=== PATIENT | female | born 1980 | race Caucasian/White ===

== ENCOUNTER 2020-03-15 20:42 | Emergency (ER) | payer MEDICARE, MEDICAID ==
[~2020-03-15] VITALS: Ht 180.3 cm; Wt 136.1 kg
--- OUTSIDE RECORDS SUMMARY | 2020-03-15 21:17 | XMS REPORT | Referral Summary ---
Author Author [facility] Organization [facility] Address Unknown Phone Unavailable Care Team Providers Care [employer] Developer Name Role Phone Felisha Sultana PCP Encounter [facility] Date(s): 10/08/17 - 10/11/17 [facility] [address] [place] [address] [phone] Final: Primary osteoarthritis, left ankle and foot Final: Body mass index (BMI) 40.0-44.9, adult Final: Obesity, unspecified Final: Impaired glucose tolerance (oral) Final: Hypokalemia Final: Hyperlipidemia, unspecified Final: Gastro-esophageal reflux disease without esophagitis Final: Nicotine dependence, cigarettes, uncomplicated Final: Major depressive disorder, single episode, unspecified Discharge Disposition: 01-Home or Self Care Attending Physician: Andrés Wren DO Admitting Physician: Andrés Wren DO Vital Signs Most recent to 1 oldest [Reference Range]: Temperature Oral 36.7 degC [35.8-37.3 degC] (10/11/17 4:00 AM) Temperature Tympanic 36 degC [36.6-38.1 degC] *LOW* (10/08/17 7:50 AM) Temperature Temporal 37.1 degC Artery [36.3-37.8 (10/08/17 11:21 AM) degC] Peripheral Pulse 74 bpm Rate [60-100 bpm] (10/11/17 4:00 AM) Heart Rate Monitored 79 bpm [60-100 bpm] (10/08/17 9:00 PM) Respiratory Rate 14 br/min [14-20 br/min] (10/11/17 4:00 AM) Blood Pressure 141/76 mmHg [90-140/60-90 mmHg] *HI* (10/11/17 4:00 AM) Mean Arterial 106 mmHg Pressure, Cuff (10/08/17 9:00 PM) SpO2 98 % (10/11/17 4:00 AM) Problem List Condition Effective Dates Status Health Status Informan t Acute Active pain(Confirmed) Impaired skin Active integrity(Confirmed) 1 Bilateral Active myopia(Confirmed) 1Problem added automatically by system based on initiation of Impaired Skin Integrity Plan of Care Allergies, Adverse Reactions, Alerts Substance Reaction Severity Status Latex Active Nuts Severe Active Tape Active oxyCODONE Active HYDROcodone Active Oranges Mild Active Medications atorvastatin 10 mg oral tablet 10 mg 1 tabs, Oral, Bedtime (once a day), 0 Refill(s) Start Date: 10/11/17 Status: Ordered cyclobenzaprine 10 mg oral tablet 10 mg 1 tabs, Oral, TID, as needed for spasm, # 30 tabs, 0 Refill(s) Start Date: 10/08/17 Status: Ordered Fish Oil 1,200 mg, Oral, Daily, 0 Refill(s) Start Date: 10/08/17 Status: Ordered gabapentin 1,800 mg, Oral, Bedtime (once a day), 0 Refill(s) Start Date: 10/08/17 Status: Ordered gabapentin 300 mg oral capsule 1,800 mg 6 caps, Oral, Bedtime (once a day), 0 Refill(s) Start Date: 10/11/17 Status: Ordered HYDROmorphone 4 mg oral tablet 4 mg 1 tabs, Oral, q4hr, Pain Severe (7-10), 0 Refill(s) Start Date: 10/11/17 Status: Ordered Melatonin 3 mg, Oral, Bedtime (once a day), 0 Refill(s) Start Date: 10/08/17 Status: Ordered multivitamin 1 tabs, Oral, Daily, 0 Refill(s) Start Date: 10/08/17 Status: Ordered nortriptyline 25 mg, Oral, Bedtime (once a day), 0 Refill(s) Start Date: 10/08/17 Status: Ordered nortriptyline 25 mg oral capsule 25 mg 1 caps, Oral, Bedtime (once a day), 0 Refill(s) Start Date: 10/11/17 Status: Ordered pantoprazole 40 mg, Oral, Daily, 0 Refill(s) Start Date: 10/08/17 Status: Ordered pantoprazole 40 mg oral delayed release tablet 40 mg 1 tabs, Oral, Daily, 0 Refill(s) Start Date: 10/11/17 Status: Ordered pravastatin 20 mg, Oral, Daily, 0 Refill(s) Start Date: 10/08/17 Status: Ordered ProAir HFA 90 mcg/inh inhalation aerosol 2 puffs, Inhalation, QID, soa, 0 Refill(s) Start Date: 10/08/17 Status: Ordered Saxenda SubCutaneous, Daily, 0 Refill(s) Start Date: 10/08/17 Status: Ordered sertraline 50 mg, Oral, Daily, 0 Refill(s) Start Date: 10/08/17 Status: Ordered sertraline 50 mg oral tablet 50 mg 1 tabs, Oral, Daily, 0 Refill(s) Start Date: 10/11/17 Status: Ordered traMADol 50 mg, Oral, q12hr, 0 Refill(s) Start Date: 10/08/17 Status: Ordered Results Hematology Most recent to 1 oldest [Reference Range]: WBC [4.8-10.8 13.0 10*3/uL 10*3/uL] *HI* (10/11/17 7:44 AM) RBC [4.00-5.20] 4.38 (10/11/17 7:44 AM) Hgb [12.0-16.0 12.3 gm/dL gm/dL] (10/11/17 7:44 AM) Hct [37.0-47.0 %] 39.0 % (10/11/17 7:44 AM) MCV [82.0-99.0 fL] 89.0 fL (10/11/17 7:44 AM) MCH [27.0-32.0 pg] 28.1 pg (10/11/17 7:44 AM) MCHC [32.0-36.0 31.5 gm/dL gm/dL] *LOW* (10/11/17 7:44 AM) RDW [11.5-14.5 %] 14.3 % (10/11/17 7:44 AM) Platelet [150-400 291 10*3/uL 10*3/uL] (10/11/17 7:44 AM) MPV [9.4-12.4 fL] 8.7 fL *LOW* (10/11/17 7:44 AM) Chemistry Most recent to 1 oldest [Reference Range]: Sodium Lvl [136-144 138 mEq/L mEq/L] (10/10/17 8:15 AM) Potassium Lvl 3.9 mEq/L [3.6-5.1 mEq/L] (10/10/17 8:15 AM) Chloride [99-109 102 mEq/L mEq/L] (10/10/17 8:15 AM) CO2 [22-32 mEq/L] 27 mEq/L (10/10/17 8:15 AM) AGAP [3-20 mEq/L] 9 mEq/L (10/10/17 8:15 AM) BUN [4-20 mg/dL] 6 mg/dL (10/10/17 8:15 AM) Glucose Lvl [70-100 136 mg/dL mg/dL] *HI* (10/10/17 8:15 AM) Creatinine Lvl 0.55 mg/dL [0.44-1.03 mg/dL] (10/10/17 8:15 AM) eGFR [>60 mL/min] >60 mL/min 1 (10/10/17 8:15 AM) Calcium Lvl 9.0 mg/dL [8.6-10.0 mg/dL] (10/10/17 8:15 AM) Albumin Lvl [3.5-4.8 3.1 gm/dL gm/dL] *LOW* (10/10/17 8:15 AM) Total Protein 6.4 gm/dL [6.1-7.9 gm/dL] (10/10/17 8:15 AM) ALT [14-54 U/L] 15 U/L (10/10/17 8:15 AM) AST [15-41 U/L] 17 U/L (10/10/17 8:15 AM) Alk Phos [26-104 71 U/L U/L] (10/10/17 8:15 AM) Bili Total [0.2-1.2 0.7 mg/dL 2 mg/dL] (10/10/17 8:15 AM) Bili Direct [0.0-0.2 0.2 mg/dL mg/dL] (10/10/17 8:15 AM) Bili Indirect 0.5 mg/dL [0.0-1.0 mg/dL] (10/10/17 8:15 AM) Screen, Negative Urine NPT (10/08/17 8:20 AM) Blood Glucose, 110 mg/dL Capillary [70-100 *HI* mg/dL] (10/11/17 5:58 AM) U Beta hCG Ql Negative (10/08/17 11:10 PM) 1Result Comment: Multiply eGFR results by 1.21 for race. 2Result Comment: Naproxen, specifically the metabolite O-desmethylnaproxen, may cause spurious elevation in Total Bilirubin levels. Immunizations No data available for this section Procedures Procedure Date Related Diagnosis Body Site Arthrodesis Ankle1 10/08/17 Ankle2 Hemorrhoidectomy Plantar fasciitis Tear duct Tonsillectomy 1auto-populated from documented surgical case 2bone spur arthroscopy Social History Social History Type Response Smoking Status 10 or more cigarettes (1/2 pack or more)/day in last 30 days entered on: 10/08/17 Assessment and Plan No data available for this section
--- OUTSIDE RECORDS SUMMARY | 2020-03-15 21:17 | XMS REPORT | Referral Summary ---
Author Author [facility] Organization [facility] Address Unknown Phone Unavailable Care Team Providers Care [employer] Name Role Phone Felisha Sultana PCP Ally Donohue PCP [facility] PCP Unavailable No PCP, Pt States PCP Encounter [facility] [id number] Date(s): 11/18/17 - 11/18/17 [facility] [address], [place] [address] Encounter Diagnosis Visit for cast removal (Discharge Diagnosis) - 11/18/17 Discharge Disposition: 01-Home or Self Care Attending Physician: Alexander Joyce DO Admitting Physician: Alexander Joyce DO Vital Signs Most recent to 1 oldest [Reference Range]: Temperature Oral 36.8 degC [35.8-37.3 degC] (11/18/17 2:44 PM) Peripheral Pulse 93 bpm Rate [60-100 bpm] (11/18/17 2:44 PM) Respiratory Rate 18 br/min [14-20 br/min] (11/18/17 2:44 PM) Blood Pressure 127/85 mmHg [90-140/60-90 mmHg] (11/18/17 2:44 PM) SpO2 96 % (11/18/17 2:44 PM) Problem List Condition Effective Dates Status Health [...] Refill(s) Start Date: 10/08/17 Status: Ordered Results No data available for this section Immunizations No data available for this section Procedures Procedure Date Related Diagnosis Body Site Status Arthrodesis Ankle1 10/08/17 Completed Ankle2 Completed Hemorrhoidectomy Completed Plantar fasciitis Completed Tear duct Completed Tonsillectomy Completed 1auto-populated from documented surgical case 2bone spur arthroscopy Social History Social History Type Response Smoking Status 10 or more cigarettes (1/2 pack or more)/day in last 30 days entered on: 10/08/17 Assessment and Plan No data available for this section
--- OUTSIDE RECORDS SUMMARY | 2020-03-15 21:17 | XMS REPORT | Referral Summary ---
Author Author [facility] Organization [facility] Address Unknown Phone Unavailable Care Team Providers Care [employer] Name Role Phone Ally Donohue PCP Encounter [facility] Date(s): 10/03/17 - 10/03/17 [facility] [address] [place] [address] Discharge Disposition: 01-Home or Self Care Attending Physician: Ally Donohue MD Admitting Physician: Ally Donohue MD Vital Signs No data available for this section Problem List Condition Effective Dates Status Health Status Informan t Bilateral Active myopia(Confirmed) Allergies, Adverse Reactions, Alerts No Known Medication Allergies Medications No data available for this section Results No data available for this section Immunizations No data available for this section Procedures No data available for this section Social History No data available for this section Assessment and Plan No data available for this section
--- OUTSIDE RECORDS SUMMARY | 2020-03-15 21:17 | XMS REPORT ---
Author Author Solange Sultana [facility] Address [address], [place] [id number] Care Team Providers Care Human Performance Technologist Name Role Phone Kodi Lowery Felisha Unavailable PROBLEMS Type Condition ICD9-CM Code TKF36-NO Code Onset Dates Condition S tatus SNOMED Code Problem Prediabetes R73.09 Active 51282586 2 Problem Depression with anxiety F41.8 Active 527959755 Problem Fibromyalgia M79.7 Active 0048801 05 Problem Chronic GERD K21.9 Active 3772123 09 Problem Mixed hyperlipidemia E78.2 Active 601576127 Problem Right hip pain M25.551 Active 34013 3505442962 Problem Pain in pelvis R10.2 Active 47904 006 Problem History of gestational diabetes Z86.32 Active 686147021 Problem Gestational diabetes O24.419 Active 79670606 Problem Other chronic pain G89.29 Active 8 3943714 Problem Pain in right wrist M25.531 Active 24263898 Problem Plantar fasciitis M72.2 Active 20 0560422 Problem Left wrist pain M25.532 Active 5660 8008 Problem Post herpetic neuralgia B02.29 Active 5957975 Problem Reactive airway disease, mild persistent, uncomplicated J45.30 Active 743005015598 Problem Lumbago of lumbar region with sciatica M54.40 Active 37622827 Problem Chronic idiopathic constipation K59.09 Active 61332108 Problem Thoracic spine pain M54.6 Active 802298306 Problem Acute left ankle pain M25.572 Active 25269692162315 Problem Lumbago with sciatica, left side M54.42 Active 487888824 Problem Other elevated white blood cell (WBC) count D72.82 8 Active 549204525 Problem Absent periods N91.2 Active 38068 001 Problem Generalized anxiety disorder F41.1 A ctive 78444839 Problem Cervical pain M54.2 Active 629011 05 Problem Decreased hearing of left ear H91.92 Active 14415096 Problem Elevated blood pressure reading R03.0 Active 31872394 Problem Left hand pain M79.642 Active 36198 1654302382 Problem Prediabetes R73.03 Active 51198351 2 Problem Irregular periods N92.6 Active 80 891144 Problem Other fatigue R53.83 Active 571503 01 Problem Vitamin D deficiency E55.9 Active 14154120 Problem Menstrual cramps N94.6 Active 431 338525 Problem Excessive daytime sleepiness G47.19 A ctive 754356728743 Problem Constipation by delayed colonic transit K59.01 Active 48403211 Problem Primary insomnia F51.01 Active 397 2004 Problem Vitamin B 12 deficiency E53.8 Active 280071724 Problem GERD with esophagitis K21.0 Active 978664799 Problem Abscess, axilla L02.419 Active 1380 2001 Problem Mild persistent asthma without complication J45.30 Active 374792750 Problem Neck pain M54.2 Active 16993009 Problem Left hip pain M25.552 Active 258965 02 Problem Right anterior shoulder pain M25.511 A ctive 12977896 Problem Dislocation of temporomandibular joint, initial encounter S03.00XA Active 892055295 Problem Irritable bowel syndrome with diarrhea K58.0 Active 703342389 Problem Essential hypertension I10 Active 10822055 Problem Cigarette nicotine dependence, uncomplicated F17.2 10 Active 40309277 Problem Rosacea L71.9 Active 947759135 Problem Radiculopathy of lumbar region M54.16 Active 423214924 Problem Spinal stenosis, lumbar region without neurogeni c claudication M48.061 Active 32491967 Problem Sleep apnea in adult G47.30 Active 45364532 Problem Bipolar disorder F31.9 Active 137 81443 ALLERGIES No Information ENCOUNTERS Encounter Location Date Diagnosis [address] [address] Oct, Lumbago of lumbar region with sciatica M 54.[address] [address] Sep, Left hip pain M25.552 and Primary insomn ia F51.[address] [address] Aug, [facility] [address] Aug, Primary insomnia F51.01 and Lumbago of l umbar region with sciatica M54.[address] [address] Jul, Lumbago of lumbar region with sciatica M 54.[address] [address] Jun, Folliculitis L73.[address] [address] Jun, Pre-op evaluation Z01.[address] [address] Jun, Folliculitis L73.[address] [address] Jun, Pre-op evaluation Z01.[address] [address] Jun, Lumbago of lumbar region with sciatica M 54.40 and Chronic GERD K21.[address] [address] Jun, [address] [address] Jun, Dislocation of temporomandibular joint, initial encounter S03.00XA [address] [address] May, Dislocation of temporomandibular joint, initial encounter S03.00XA ; Essential hypertension I10 and Intertrigo L30.[address] [address] Apr, Depression with anxiety F41.[address] [address] Apr, Primary insomnia F51.[address] [address] Apr, Lumbago of lumbar region with sciatica M 54.40 and Vitamin D deficiency E55.[address] [address] Apr, Vitamin D deficiency E55.[address] [address] Apr, Allergic contact dermatitis due to other agents L23.89 ; Bipolar disorder F31.9 ; Mixed hyperlipidemia E78.2 ; Prediabetes R73.09 ; Vitamin D deficiency E55.9 ; Depression with anxiety F41.8 ; Dizziness R42 ; Other fatigue R53.83 ; Left anterior shoulder pain M25.512 and Left lateral ankle pain M25.[address] [address] Apr, Mixed hyperlipidemia E78.[address] [address] Apr, [address] [address] Apr, Bipolar disorder F31.9 ; Fibromyalgia M7 9.7 ; Depression with anxiety F41.8 ; Lumbago of lumbar region with sciatica M54.40 and Acute left ankle pain M25.[address] [address] Mar, Constipation by delayed colonic transit K59.01 ; Mixed hyperlipidemia E78.2 ; Depression with anxiety F41.8 ; Chronic GERD K21.9 and Bipolar disorder F31.[address] [address] Feb, Abscess L02.[address] [address] Dec, Chronic GERD K21.9 and Mixed hyperlipide sourav E78.[address] [address] Nov, [address] [address] Nov, [address] [address] Oct, Abscess, axilla L02.419 and Lumbago of l umbar region with sciatica M54.[address] [address] Oct, Fall, initial encounter W19.XXXA ; Right hip pain M25.551 ; Pain in pelvis R10.2 ; Right anterior shoulder pain M25.511 ; Left hip pain M25.552 ; Neck pain M54.2 ; Depression with anxiety F41.8 and Shingles B02.[address] [address] Oct, [address] [address] Oct, Sleep apnea in adult G47.[address] [address] Sep, Mixed hyperlipidemia E78.2 ; Prediabetes R73.09 ; Vitamin D deficiency E55.9 ; Fibromyalgia M79.7 ; Chronic GERD K21.9 ; Radiculopathy of lumbar region M54.16 ; Spinal stenosis, lumbar region without neurogenic claudication M48.061 ; Vitamin B 12 deficiency E53.8 ; Depression with anxiety F41.8 ; Cervical pain M54.2 and Hospital discharge follow-up Z09 [address] [address] Sep, [address] [address] Sep, [address] [address] Sep, Post herpetic neuralgia B02.[address] [address] Sep, Mixed hyperlipidemia E78.2 ; Vitamin D d eficiency E55.9 ; Prediabetes R73.09 ; Post herpetic neuralgia B02.29 ; Lumbago of lumbar region with sciatica M54.40 ; Primary insomnia F51.01 ; Fibromyalgia M79.7 ; Depression with anxiety F41.8 ; Constipation by delayed colonic transit K59.01 ; Medication refill Z76.0 ; Vitamin B 12 deficiency E53.8 ; Abscess, axilla L02.419 ; Mild persistent asthma without complication J45.30 ; Sinus congestion R09.81 and GERD with esophagitis K21.[address] [address] Aug, [address] [address] Aug, Depression with anxiety F41.8 and Primar y insomnia F51.[address] [address] 13 Aug, 2018 Chronic GERD K21.[address] [address] Aug, [address] [address] 15 Jul, 2018 Irregular periods N92.6 and Menstrual cr amps N94.[address] [address] 14 Jul, [address] [address] Jul, [address] [address] 12 Jul, 2018 Abscess L02.[address] [address] 06 Jul, 2018 Mixed hyperlipidemia E78.2 ; Chronic ABDOUL D K21.9 and Generalized anxiety disorder F41.[address] [address] 06 Jul, 2018 Well woman exam with routine gynecologic al exam Z01.419 ; Menstrual cramps N94.6 ; Acute left ankle pain M25.572 ; Snoring R06.83 and Excessive daytime sleepiness G47.[address] [address] Jun, Shingles B02.[address] [address] Jun, Pruritic dermatitis L29.9 and Rosacea L7 1.9 [facility] [address] [place] [address] Jun, [facility] [address] [place] [address] Jun, [facility] [address] [place] [address] Jun, [facility] [address] [place] [address] Jun, Butterfly rash R21 ; Influenza vaccine n eeded Z23 ; Prediabetes R73.09 ; Mixed hyperlipidemia E78.2 and Vitamin D deficiency E55.9 [facility] [address] [place] [address], [place] [address] Apr, Left ankle swelling M25.472 [facility] [address] [place] [address] Apr, [facility] [address] [place] [address] Apr, [facility] [address] [place] [address] Mar, Edema of left foot R60.0 [facility] [address] [place] [address] Mar, Irritable bowel syndrome with diarrhea K 58.0 [facility] [address] [place] [address] Mar, [facility] [address] [place] [address] Mar, [facility] [address] [place] [address] Mar, [facility] [address] [address] Feb, Irritable bowel syndrome with diarrhea K 58.0 [facility] [address] [place] [address] Feb, [facility] [address] [place] [address] Feb, Irritable bowel syndrome with diarrhea K 58.0 [facility] [address] [place] [address] 19 Feb, 2018 control counseling Z30.09 ; Lumbag o with sciatica, left side M54.42 and Chronic GERD K21.9 [facility] [address] [place] [address] Feb, [facility] [address] [address] Feb, [facility] [address] [place] [address] Feb, [facility] [address] [place] [address] Feb, Diarrhea, unspecified type R19.7 [facility] [address] [place] [address] Feb, Abnormal glucose R73.[address] [address] Feb, Abnormal glucose R73.09 [facility] [address] [place] [address] Feb, Reactive airway disease, mild persistent , uncomplicated J45.[address] [address] Feb, Lumbago with sciatica, left side M54.42 ; Cigarette nicotine dependence, uncomplicated F17.210 ; Diarrhea, unspecified type R19.7 and Abnormal glucose R73.09 [facility] [address] [place] [address] January, [facility] [address] [place] [address] January, [facility] [address] [address] January, [facility] [address] [place] [address] January, [facility] [address] [place] [address] January, Muscle strain of chest wall, initial enc ounter S29.011A ; Physical exam Z00.00 ; Need for hepatitis vaccination Z23 and Abscess L02.[address] [address] Dec, Left hand pain M79.642 ; Thoracic spine pain M54.6 ; Cervical pain M54.2 and Elevated blood pressure reading R03.[address] [address] Dec, Lumbago with sciatica, left side M54.42 and Decreased hearing of left ear H91.[address] [address] Dec, Other chest pain R07.89 ; Finger pain, l eft M79.645 ; Chronic GERD K21.9 and Muscle strain of chest wall, initial encounter S29.011A [address] [address] Dec, [address] [address] Dec, Other constipation K59.09 ; Irregular pe riods N92.6 and Absent periods N91.[address] [address] Oct, [address] [address] Oct, Weight gain R63.[address] [address] Oct, Generalized anxiety disorder F41.[address] [address] Sep, [address] [address] Sep, Absent periods N91.2 and Decreased heari ng of left ear H91.[address] [address] Sep, [address] [address] 12 Sul[place]an, 2018 Pre-op exam Z01.818 and Abscess of chest wall L02.[address] [address] Sep, [address] [address] Sep, Prediabetes R73.09 ; Vitamin D deficienc y E55.9 ; Mixed hyperlipidemia E78.2 and Arthritis of ankle, left M19.[address] [address] Sep, Smoking trying to quit Z72.0 ; Chronic G ERD K21.9 ; Generalized anxiety disorder F41.1 ; Other chest pain R07.89 ; Other constipation K59.09 and Right upper quadrant pain R10.[address] [address] Aug, [address] [address] Aug, Other chronic pain G89.[address] [address] Aug, Mixed hyperlipidemia E78.2 ; Fibromyalgi a M79.7 ; Lumbago of lumbar region with sciatica M54.40 ; History of gestational diabetes Z86.32 ; Prediabetes R73.09 ; Vitamin D deficiency E55.9 ; Weight gain R63.5 ; control counseling Z30.09 ; Pain, dental K08.89 and Flank pain R10.[address] [address] Aug, [address] [address] Jun, Acute left ankle pain M25.[address] [address] Jun, [address] [address] Jun, [address] [address] Jun, Acute left ankle pain M25.572 [facility] [address] [place] [address] Jun, [facility] [address] [place] [address] Jun, Acute left ankle pain M25.572 [facility] [address] [place] [address] Jun, Influenza vaccine needed Z23 and Irregul ar periods N92.6 [facility] [address] [place] [address] May, Mixed hyperlipidemia E78.2 [facility] [address] [place] [address] May, [facility] [address] [place] [address] May, Chronic GERD K21.9 [facility] [address] [place] [address] Apr, Weight gain R63.5 [facility] [address] [place] [address] Apr, Chronic GERD K21.9 and Weight gain R63.5 [facility] [address] [place] [address] Mar, Depression with anxiety F41.8 and Chroni c idiopathic constipation K59.09 [facility] [address] [place] [address] Mar, Other chronic pain G89.29 [facility] [address] [place] [address] Mar, Post herpetic neuralgia B02.29 [facility] [address] [place] [address] Mar, Post herpetic neuralgia B02.29 [facility] [address] [place] [address] Mar, [facility] [address] [place] [address] Mar, Other elevated white blood cell (WBC) co unt D72.[address] [address] Mar, Other elevated white blood cell (WBC) co unt D72.828 and Dyslipidemia E78.[address] [address] Feb, [address] [address] Feb, Vitamin D deficiency E55.9 ; Dyslipidemi a E78.5 ; Other elevated white blood cell (WBC) count D72.828 and Skin tag L91.[address] [address] Feb, [address] [address] Feb, Vitamin D deficiency E55.9 and Dyslipide sourav E78.[address] [address] Feb, [address] [address] Feb, Post herpetic neuralgia B02.29 ; Thyroid disorder screen Z13.29 ; Mixed hyperlipidemia E78.2 ; Chronic GERD K21.9 ; Lumbago of lumbar region with sciatica M54.40 ; Prediabetes R73.03 ; Other fatigue R53.83 ; Vitamin D deficiency E55.9 and Vitamin B 12 deficiency E53.[address] [address] Feb, Reactive airway disease, mild persistent , uncomplicated J45.[address] [address] Feb, Chronic GERD K21.[address] [address] Feb, Mixed hyperlipidemia E78.2 and Other chr onic pain G89.[address] [address] Feb, Lumbago with sciatica, left side M54.42 ; Mixed hyperlipidemia E78.2 and Reactive airway disease, mild persistent, uncomplicated J45.30 [facility] [address] [place] [address] 20 Feb, 2017 Chronic GERD K21.9 [facility] [address] [place] [address] Feb, [facility] [address] [place] [address] Feb, [facility] [address] [place] [address] Feb, Post herpetic neuralgia B02.29 [facility] [address] [place] [address] Feb, Allergic contact dermatitis due to other agents L23.89 and Post herpetic neuralgia B02.29 [facility] [address] [place] [address] Feb, Chronic GERD K21.9 [facility] [address] [place] [address] Feb, Chronic GERD K21.9 [facility] [address] [place] [address] January, Post herpetic neuralgia B02.29 [facility] [address] [place] [address] January, Lumbago with sciatica, left side M54.42 [facility] [address] [place] [address] January, [facility] [address] [place] [address] January, Lumbago of lumbar region with sciatica M 54.40 [facility] [address] [place] [address] January, Other chronic pain G89.29 and Lumbago wi th sciatica, left side M54.42 [facility] [address] [place] [address] January, Depression with anxiety F41.8 [facility] [address] [place] [address] January, Mixed hyperlipidemia E78.[address] [address] January, Abscess of left groin L02.[address] [address] Dec, Depression with anxiety F41.[address] [address] Dec, Irregular periods N92.[address] [address] Nov, Left wrist pain M25.532 and Acute left a nkle pain M25.[address] [address] Nov, Post herpetic neuralgia B02.29 and Absce ss of left groin L02.[address] [address] Sep, Irregular periods N92.[address] [address] Sep, Mixed hyperlipidemia E78.2 ; Flank pain R10.9 and Post herpetic neuralgia B02.[address] [address] Aug, Lumbago of lumbar region with sciatica M 54.40 ; Chronic idiopathic constipation K59.09 ; Depression with anxiety F41.8 and Mixed hyperlipidemia E78.[address] [address] Aug, Other chronic pain G89.[address] [address] Aug, Reactive airway disease, mild persistent , uncomplicated J45.[address] [address] Aug, [address] [address] Aug, Cough R05 and Allergic contact dermatiti s due to other agents L23.89 [facility] [address] [place] [address] Aug, [address] [address] Jul, Other chronic pain G89.[address] [address] Jul, Upper respiratory tract infection, unspe cified type J06.9 ; Chronic GERD K21.9 ; Acute left ankle pain M25.572 and Lumbago of lumbar region with sciatica M54.[address] [address] Jun, Other chronic pain G89.[address] [address] Jun, [address] [address] Jun, [address] [address] Jun, Chronic GERD K21.[address] [address] Jun, [address] [address] May, Pain in right wrist M25.531 ; Left wrist pain M25.532 ; Acute left ankle pain M25.572 ; Thoracic spine pain M54.6 ; Lumbago with sciatica, left side M54.42 ; Other chronic pain G89.29 and Dysuria R30.0 [facility] [address] [place] [address] May, Chronic GERD K21.[address] [address] May, Chronic GERD K21.[address] [address] May, [address] [address] May, [facility] [address] [place] [address] 16 May, 2016 [facility] [address] [place] [address] 16 May, 2016 [facility] [address] [place] [address] 16 May, 2016 Mixed hyperlipidemia E78.2 ; Fibromyalgi a M79.7 ; Depression with anxiety F41.8 ; Lumbago of lumbar region with sciatica M54.40 ; Encounter to establish care Z76.89 ; Chronic GERD K21.9 ; History of gestational diabetes Z86.32 ; Chronic idiopathic constipation K59.09 ; Thyroid disorder screen Z13.29 and Need for influenza vaccination Z23 [facility] [address] [place] [phone] Apr, Gestational diabetes O24.419 [facility] [address] [place] [address] Feb, Gestational diabetes O24.419 IMMUNIZATIONS No Known Immunizations SOCIAL HISTORY Never Assessed REASON FOR VISIT PLAN OF CARE VITAL SIGNS MEDICATIONS Medication Instructions Dosage Frequency Start Date End Date Duration S tatus Tramadol HCl 50 MG Orally Three times daily take 1-2 tablet by mouth three times daily 30 Active RESULTS No Results PROCEDURES No Known procedures INSTRUCTIONS MEDICATIONS ADMINISTERED No Known Medications MEDICAL (GENERAL) HISTORY Type Description Date Medical History Morbid Obesity Medical History Fibromyalgia Medical History Hyperlipidemia Medical History Gestational DM Medical History Depression and Anxiety Medical History L5-S1 disc degeneration disease Medical History Sinus Bradycardia Surgical History Rt foot-plantar facitis 2011 Surgical History Lt foot bone spur 07/2015 Surgical History (girl) 03/17/16 Surgical History (girl) 06/26/2014 Surgical History (boy) 10/17/2001 Surgical History L ankle arthroscopy/synovect sherri/exostectomy of L distal tibia- Dr. Tyree Hernandez 07/2015 Surgical History Fused L ankle 09/2017 Hospitalization History [facility]- Hyperglycemia and February 2016 Hospitalization History Ankle surgery 09/2017
--- OUTSIDE RECORDS SUMMARY | 2020-03-15 21:17 | XMS REPORT | Referral Summary ---
Author Author [facility], [facility], Otolaryngology Organization [facility] [address] Address Unknown Phone Unavailable Care Team Providers Care Palliative Medicine Physician Name Role Phone Ally Donohue PCP Encounter VC Date(s): 02/13/18 - 02/13/18 [facility] [address] [place], [place] [address] Discharge Disposition: 01-Home or Self Care Attending Physician: Jonny Boyd MD Admitting Physician: Jonny Boyd MD Referring Physician: Ally Donohue MD Vital Signs Most recent to 1 oldest [Reference Range]: Temperature Tympanic 36.3 degC [36.6-38.1 degC] *LOW* (02/13/18 3:52 PM) Problem List Condition Effective Dates Status [...] 0 Refill(s) Start Date: 10/08/17 Status: Ordered cyclobenzaprine 10 mg oral tablet 10 mg 1 tabs, Oral, TID, as needed for spasm, # 15 tabs, 0 Refill(s) Start Date: 01/11/18 Status: Ordered Fish Oil 1,200 mg, Oral, [...] History Social History Type Response Smoking Status Former smoker, quit more th an 30 days ago; Type: Cigarettes entered on: 01/10/18 Assessment and Plan No data available for this section
--- OUTSIDE RECORDS SUMMARY | 2020-03-15 21:17 | XMS REPORT | Referral Summary ---
Author Author [facility] Organization [facility] Address Unknown Phone Unavailable Care Team Providers Care Reference Archivist Name Role Phone Felisha Sultana PCP Ally Donohue PCP [facility] PCP Unavailable No PCP, Pt States PCP Encounter [facility] [id number] Date(s): 01/10/18 - 01/11/18 [facility] [address], [place] [address] Encounter Diagnosis Nonspecific chest pain (Discharge Diagnosis) - 01/11/18 Muscle spasms of neck (Discharge Diagnosis) - 01/11/18 Discharge Disposition: 01-Home or Self Care Attending Physician: Alexander Joyce DO Admitting Physician: Alexander Joyce DO Vital Signs Most recent to 1 oldest [Reference Range]: Temperature Oral 36.0 degC [35.8-37.3 degC] (01/11/18 1:43 AM) Peripheral Pulse 72 bpm Rate [60-100 bpm] (01/11/18 1:43 AM) Heart Rate Monitored 69 bpm [60-100 bpm] (01/11/18 12:40 AM) Respiratory Rate 16 br/min [14-20 br/min] (01/11/18 1:43 AM) Blood Pressure 141/71 mmHg [90-140/60-90 mmHg] *HI* (01/11/18 1:43 AM) Mean Arterial 106 mmHg Pressure, Cuff (01/11/18 12:40 AM) SpO2 100 % (01/11/18 1:43 AM) Problem List Condition Effective Dates Status [...] 0 Refill(s) Start Date: 10/08/17 Status: Ordered predniSONE 50 mg oral tablet 50 mg 1 tabs, Oral, Daily, X 5 days, # 5 tabs, 0 Refill(s) Start Date: 01/11/18 Stop Date: 01/16/18 Status: Ordered ProAir HFA 90 mcg/inh inhalation [...] to 1 oldest [Reference Range]: WBC [4.8-10.8 16.5 10*3/uL 10*3/uL] *HI* (01/10/18 10:38 PM) RBC [4.00-5.20] 4.79 (01/10/18 10:38 PM) Hgb [12.0-16.0 13.1 gm/dL gm/dL] (01/10/18 10:38 PM) Hct [37.0-47.0 %] 41.5 % (01/10/18 10:38 PM) MCV [82.0-99.0 fL] 86.6 fL (01/10/18 10:38 PM) MCH [27.0-32.0 pg] 27.3 pg (01/10/18 10:38 PM) MCHC [32.0-36.0 31.6 gm/dL gm/dL] *LOW* (01/10/18 10:38 PM) RDW [11.5-14.5 %] 14.1 % (01/10/18 10:38 PM) Platelet [150-400 333 10*3/uL 10*3/uL] (01/10/18 10:38 PM) MPV [9.4-12.4 fL] 8.6 fL *LOW* (01/10/18 10:38 PM) Immature 0.1 % Granulocytes (01/10/18 10:38 PM) [0.0-1.0 %] Neutrophils [51-75 62 % %] (01/10/18 10:38 PM) Lymphocytes [20-46 30 % %] (01/10/18 10:38 PM) Monocytes [4-11 %] 6 % (01/10/18 10:38 PM) Eosinophils [0-4 %] 2 % (01/10/18 10:38 PM) Basophils [0-2 %] 1 % (01/10/18 10:38 PM) Neutro Absolute 10.23 [1.90-7.00] *HI* (01/10/18 10:38 PM) Lymph Absolute 4.87 [0.80-3.30] *HI* (01/10/18 10:38 PM) Hutchinson Absolute 0.91 [0.30-1.00] (01/10/18 10:38 PM) Eos Absolute 0.35 [0.00-0.50] (01/10/18 10:38 PM) Baso Absolute 0.10 [0.00-0.20] (01/10/18 10:38 PM) Chemistry Most recent to 1 oldest [Reference Range]: Sodium Lvl [136-144 137 mEq/L mEq/L] (01/10/18 10:38 PM) Potassium Lvl 3.6 mEq/L [3.6-5.1 mEq/L] (01/10/18 10:38 PM) Chloride [99-109 101 mEq/L mEq/L] (01/10/18 10:38 PM) CO2 [22-32 mEq/L] 27 mEq/L (01/10/18 10:38 PM) AGAP [3-20 mEq/L] 9 mEq/L (01/10/18 10:38 PM) BUN [4-20 mg/dL] 10 mg/dL (01/10/18 10:38 PM) Glucose Lvl [70-100 126 mg/dL mg/dL] *HI* (01/10/18 10:38 PM) Creatinine Lvl 0.76 mg/dL [0.44-1.03 mg/dL] (01/10/18 10:38 PM) eGFR [>60 mL/min] >60 mL/min 1 (01/10/18 10:38 PM) Calcium Lvl 9.0 mg/dL [8.6-10.0 mg/dL] (01/10/18 10:38 PM) Troponin [<0.06 <0.05 ng/mL ng/mL] (01/10/18 10:38 PM) 1Result Comment: Multiply eGFR results by 1.21 for race. Immunizations No data available for this section [...]
--- OUTSIDE RECORDS SUMMARY | 2020-03-15 21:17 | XMS REPORT | Referral Summary ---
Author Author [facility] Organization [facility] Address Unknown Phone Unavailable Care Team Providers Care River Guide Name Role Phone Felisha Sultana PCP Ally Donohue PCP [facility] PCP Unavailable No PCP, Pt States PCP Encounter [facility] [id number] Date(s): 11/13/17 - 11/13/17 [facility] [address] [place], [place] [address] [phone] Encounter Diagnosis Cast removal (Discharge Diagnosis) - 11/13/17 Discharge Disposition: 01-Home or Self Care Attending Physician: Alexander Joyce DO Admitting Physician: Alexander Joyce DO Referring Physician: Self Referred, X Vital Signs Most recent to 1 oldest [Reference Range]: Temperature Oral 36.9 degC [35.8-37.3 degC] (11/13/17 3:44 PM) Peripheral Pulse 70 bpm Rate [60-100 bpm] (11/13/17 3:44 PM) Respiratory Rate 18 br/min [14-20 br/min] (11/13/17 3:44 PM) Blood Pressure 209/104 mmHg [90-140/60-90 mmHg] *HI* (11/13/17 3:44 PM) SpO2 97 % (11/13/17 3:44 PM) Problem List Condition Effective Dates Status [...]
--- OUTSIDE RECORDS SUMMARY | 2020-03-15 21:17 | XMS REPORT | Referral Summary ---
Author Author [facility] Organization [facility] Address Unknown Phone Unavailable Care Team Providers Care Operator Electronic Warfare Name Role Phone [id number] PCP Unavailable Encounter Date(s): 08/31/16 - 08/31/16 [facility] [address] [place] [id number] Discharge Disposition: 01-Home or Self Care Attending Physician: Ally Donohue MD Vital Signs No [...]
--- OUTSIDE RECORDS SUMMARY | 2020-03-15 21:17 | XMS REPORT | Referral Summary ---
Author Author [facility] Organization [facility] Address Unknown Phone Unavailable Care Team Providers Care Director Of Distance Learning Name Role Phone Charanjit Ally E PCP Encounter Date(s): 02/13/18 - 02/13/18 [facility] [address] [place] [address]- Encounter Diagnosis Left-sided sensorineural hearing loss (Discharge Diagnosis) - 02/13/18 Discharge Disposition: 01-Home or Self Care Attending Physician: Margie Cook Referring Physician: Jonny Boyd MD Vital Signs No data available for [...]
--- OUTSIDE RECORDS SUMMARY | 2020-03-15 21:17 | XMS REPORT | Referral Summary ---
Author Author [facility] Organization [facility] Address Unknown Phone Unavailable Care Team Providers Care Band Saw Marker Name Role Phone No PCP, Pt States PCP Encounter [facility] Date(s): 05/17/16 - 05/17/16 [facility] [address], [place] [address] Discharge Diagnosis: Bilateral myopia Discharge Disposition: 01-Home or Self Care Attending Physician: Warren Miranda OD Admitting Physician: Warren Miranda OD Vital Signs No data available for this section Problem List Condition Effective Dates Status Health Status Informan t Bilateral Active myopia(Confirmed) Allergies, Adverse Reactions, Alerts No Known Medication Allergies Medications No Known Medications Results No data available for this section Immunizations No data available for this section Procedures No data available for this section Social History No data available for this section Assessment and Plan Extracted from: Title: Ambulatory Patient Education Author: Seth Miranda OD Date: 05/17/16 Ophthalmology Myopia Nearsightedness (myopia) is when objects that are far away cannot be seen clearly. This usually happens because the eye is either longer than normal or bends (refracts) the light too much. As a result, the image is blurred. Myopia also often develops in the pre-teen years and progresses through the teens. You may see them holding things close to their eyes to see. You may also notice children sitting close to the television or white board in school. It generally stabilizes by the end of the teenage years. Myopia that continues to develop is called progressive myopia. CAUSES Growth spurts in children. Certain drugs and medicines. Some other causes of myopia (secondary myopia) can happen from other medical conditions such as: Developing cataracts. High blood sugar (e.g. uncontrolled diabetes). . Premature . Other diseases of the eye. SYMPTOMS People with myopia have blurred vision in the affected eye(s) for anything far away, but can usually find a point up close at which they can see clearly. DIAGNOSIS An avaya engineer or education manager can diagnose myopia with tests using a series of lenses in front of the eye and the eye reading chart. TREATMENT Glasses or contact lenses. Ophthalmologists can use painless laser treatments to change the shape of the clear covering at the front of the eye (cornea). SEEK IMMEDIATE MEDICAL CARE IF: You get a rapid blurring of vision in one or both eyes. This information is not intended to replace advice given to you by your health care provider. Make sure you discuss any questions you have with your health care provider. Document Released: 09/10/2006 Document Revised: 12/02/2012 Document Reviewed: 08/04/2015 [facility] Patient Information 2016 [employer]. No follow up information was provided. Extracted from: Title: Eye Exam am Author: Warren Miranda OD Date: 04/25 01/07 Impression and Plan Diagnosis Bilateral myopia ([id number] H52.13, Discharge, Medical). Plan: Spectacle prescription . Patient Instructions: Myopia, 1 year. Prescription: Ophthalmology Rx (ST) No qualifying data available.
--- OUTSIDE RECORDS SUMMARY | 2020-03-15 21:18 | XMS REPORT ---
Author Author Solange Sultana [facility] Address [address], [place] [id number] Care Team Providers Care As400 Developer Name Role Phone Kodi Lowery Felisha Unavailable PROBLEMS Type Condition ICD9-CM Code VWR60-AP Code Onset Dates Condition S tatus SNOMED Code Problem Prediabetes R73.09 Active 89623060 2 Problem Depression with anxiety F41.8 Active 927787051 Problem Fibromyalgia M79.7 Active 5900118 05 Problem Chronic GERD K21.9 Active 1325305 09 Problem Mixed hyperlipidemia E78.2 Active 004887935 Problem Right hip pain M25.551 Active 88433 7974367850 Problem Pain in pelvis R10.2 Active 82048 006 Problem History of gestational diabetes Z86.32 Active 011394448 Problem Gestational diabetes O24.419 Active 81861504 Problem Other chronic pain G89.29 Active 8 5940044 Problem Pain in right wrist M25.531 Active 20524547 Problem Plantar fasciitis M72.2 Active 20 3477133 Problem Left wrist pain M25.532 Active 5660 8008 Problem Post herpetic neuralgia B02.29 Active 3169865 Problem Reactive airway disease, mild persistent, uncomplicated J45.30 Active 856397405096 Problem Lumbago of lumbar region with sciatica M54.40 Active 55169125 Problem Chronic idiopathic constipation K59.09 Active 18608167 Problem Thoracic spine pain M54.6 Active 895495087 Problem Acute left ankle pain M25.572 Active 50617820611968 Problem Lumbago with sciatica, left side M54.42 Active 730839734 Problem Other elevated white blood cell (WBC) count D72.82 8 Active 977568409 Problem Absent periods N91.2 Active 30759 001 Problem Generalized anxiety disorder F41.1 A ctive 64366465 Problem Cervical pain M54.2 Active 015518 05 Problem Decreased hearing of left ear H91.92 Active 85391818 Problem Elevated blood pressure reading R03.0 Active 04240086 Problem Left hand pain M79.642 Active 29967 6767386225 Problem Prediabetes R73.03 Active 42285745 2 Problem Irregular periods N92.6 Active 80 338624 Problem Other fatigue R53.83 Active 755427 01 Problem Vitamin D deficiency E55.9 Active 60036039 Problem Menstrual cramps N94.6 Active 431 460099 Problem Excessive daytime sleepiness G47.19 A ctive 156403567290 Problem Constipation by delayed colonic transit K59.01 Active 75380587 Problem Primary insomnia F51.01 Active 397 2004 Problem Vitamin B 12 deficiency E53.8 Active 853038186 Problem GERD with esophagitis K21.0 Active 846112654 Problem Abscess, axilla L02.419 Active 1380 2001 Problem Mild persistent asthma without complication J45.30 Active 076247964 Problem Neck pain M54.2 Active 71529194 Problem Left hip pain M25.552 Active 959658 02 Problem Right anterior shoulder pain M25.511 A ctive 58936310 Problem Dislocation of temporomandibular joint, initial encounter S03.00XA Active 640000873 Problem Irritable bowel syndrome with diarrhea K58.0 Active 837871084 Problem Essential hypertension I10 Active 18436686 Problem Cigarette nicotine dependence, uncomplicated F17.2 10 Active 88277916 Problem Rosacea L71.9 Active 751282534 Problem Radiculopathy of lumbar region M54.16 Active 592702053 Problem Spinal stenosis, lumbar region without neurogeni c claudication M48.061 Active 70143303 Problem Sleep apnea in adult G47.30 Active 95315034 Problem Bipolar disorder F31.9 Active 137 30441 ALLERGIES No Information ENCOUNTERS Encounter Location Date Diagnosis [address] [address] Jun, Folliculitis L73.[address] [address] Jun, Pre-op evaluation Z01.[address] [address] Jun, Folliculitis L73.[address] [address] Jun, Pre-op evaluation Z01.[address] [address] Jun, Lumbago of lumbar region with sciatica M 54.40 and Chronic GERD K21.[address] [address] Jun, [address] [address] Jun, Dislocation of temporomandibular joint, initial encounter S03.00XA [address] [address] May, Dislocation of temporomandibular joint, initial encounter S03.00XA ; Essential hypertension I10 and Intertrigo L30.[address] [address] Apr, Depression with anxiety F41.[address] [address] Apr, Primary insomnia F51.[address] [address] Apr, Lumbago of lumbar region with sciatica M 54.40 and Vitamin D deficiency E55.[address] [address] Apr, Vitamin D deficiency E55.[address] [address] Apr, Allergic contact dermatitis due to other agents L23.89 ; Bipolar disorder F31.9 ; Mixed hyperlipidemia E78.2 ; Prediabetes R73.09 ; Vitamin D deficiency E55.9 ; Depression with anxiety F41.8 ; Dizziness R42 ; Other fatigue R53.83 ; Left anterior shoulder pain M25.512 and Left lateral ankle pain M25.[address] [address] Apr, Mixed hyperlipidemia E78.[address] [address] Apr, [address] [address] Apr, Bipolar disorder F31.9 ; Fibromyalgia M7 9.7 ; Depression with anxiety F41.8 ; Lumbago of lumbar region with sciatica M54.40 and Acute left ankle pain M25.[address] [address] Mar, Constipation by delayed colonic transit K59.01 ; Mixed hyperlipidemia E78.2 ; Depression with anxiety F41.8 ; Chronic GERD K21.9 and Bipolar disorder F31.[address] [address] Feb, Abscess L02.[address] [address] Dec, Chronic GERD K21.9 and Mixed hyperlipide sourav E78.[address] [address] Nov, [address] [address] Nov, [address] [address] Oct, Abscess, axilla L02.419 and Lumbago of l umbar region with sciatica M54.[address] [address] Oct, Fall, initial encounter W19.XXXA ; Right hip pain M25.551 ; Pain in pelvis R10.2 ; Right anterior shoulder pain M25.511 ; Left hip pain M25.552 ; Neck pain M54.2 ; Depression with anxiety F41.8 and Shingles B02.[address] [address] Oct, [address] [address] Oct, Sleep apnea in adult G47.[address] [address] Sep, Mixed hyperlipidemia E78.2 ; Prediabetes R73.09 ; Vitamin D deficiency E55.9 ; Fibromyalgia M79.7 ; Chronic GERD K21.9 ; Radiculopathy of lumbar region M54.16 ; Spinal stenosis, lumbar region without neurogenic claudication M48.061 ; Vitamin B 12 deficiency E53.8 ; Depression with anxiety F41.8 ; Cervical pain M54.2 and Hospital discharge follow-up Z09 [address] [address] Sep, [address] [address] Sep, [address] [address] Sep, Post herpetic neuralgia B02.[address] [address] Sep, Mixed hyperlipidemia E78.2 ; Vitamin D [...] congestion R09.81 and GERD with esophagitis K21.[address] [address] Aug, [address] [address] Aug, Depression with anxiety F41.8 and Primar y insomnia F51.[address] [address] Aug, Chronic GERD K21.[address] [address] Aug, [address] [place] [address] 15 Jul, 2018 Irregular periods N92.6 and Menstrual cr amps N94.[address] [address] 14 Jul, [address] [facility] [address] [place] [address] 14 Jul, [address] [address] Jul, Abscess L02.[address] [address] Jul, Mixed hyperlipidemia E78.2 ; Chronic ABDOUL D K21.9 and Generalized anxiety disorder F41.[address] [address] Jul, Well woman exam with routine gynecologic al exam Z01.419 ; Menstrual cramps N94.6 ; Acute left ankle pain M25.572 ; Snoring R06.83 and Excessive daytime sleepiness G47.[address] [address] Jun, Shingles B02.[address] [address] Jun, Pruritic dermatitis L29.9 and Rosacea L7 1.[address] [address] Jun, [address] [address] Jun, [address] [address] Jun, [address] [address] Jun, Butterfly rash R21 ; Influenza vaccine n eeded Z23 ; Prediabetes R73.09 ; Mixed hyperlipidemia E78.2 and Vitamin D deficiency E55.[address] [address] Apr, Left ankle swelling M25.472 [facility] [address] [place] [facility] [address] Apr, [facility] [address] [place] [facility] [address] Apr, [facility] [address] [place] [facility] [address] Mar, Edema of left foot R60.0 [facility] [address] [facility] [place] [address] Mar, Irritable bowel syndrome with diarrhea K 58.0 [facility] [address] [place] [facility] [address] Mar, [facility] [address] [facility] [place] [address] Mar, [facility] [address] [place] [facility] [address] Mar, [facility] [address] [facility] [place] [address] Feb, Irritable bowel syndrome with diarrhea K 58.0 [facility] [address] [facility] [place] [address] Feb, [facility] [address] [facility] [place] [address] Feb, Irritable bowel syndrome with diarrhea K 58.0 [facility] [address] [facility] [place] [address] Feb, control counseling Z30.09 ; Lumbag o with sciatica, left side M54.42 and Chronic GERD K21.9 [facility] [address] [place] [facility] [address] Feb, [facility] [address] [facility] [place] [address] Feb, [facility] [address] [facility] [place] [address] Feb, [facility] [address] [facility] [place] [address] Feb, Diarrhea, unspecified type R19.7 [facility] [address] [facility] [place] [address] Feb, Abnormal glucose R73.[address] [address] Feb, Abnormal glucose R73.[address] [address] Feb, Reactive airway disease, mild persistent , uncomplicated J45.[address] [address] Feb, Lumbago with sciatica, left side M54.42 ; Cigarette nicotine dependence, uncomplicated F17.210 ; Diarrhea, unspecified type R19.7 and Abnormal glucose R73.[address] [address] January, [address] [address] January, [address] [address] January, [address] [address] January, [address] [address] January, Muscle strain of chest wall, initial enc ounter S29.011A ; Physical exam Z00.00 ; Need for hepatitis vaccination Z23 and Abscess L02.[address] [address] Dec, Left hand pain M79.642 ; Thoracic spine pain M54.6 ; Cervical pain M54.2 and Elevated blood pressure reading R03.[address] [address] Dec, Lumbago with sciatica, left side M54.42 and Decreased hearing of left ear H91.[address] [address] Dec, Other chest pain R07.89 ; Finger pain, l eft M79.645 ; Chronic GERD K21.9 and Muscle strain of chest wall, initial encounter S29.011A [facility] [address] [place] [address] Dec, [address] [address] Dec, Other constipation K59.09 ; Irregular pe riods N92.6 and Absent periods N91.[address] [address] Oct, [address] [address] Oct, Weight gain R63.[address] [address] Oct, Generalized anxiety disorder F41.[address] [address] Sep, [address] [address] Sep, Absent periods N91.2 and Decreased heari ng of left ear H91.[address] [address] Sep, [address] [address] Sep, Pre-op exam Z01.818 and Abscess of chest wall L02.[address] [address] Sep, [address] [address] Sep, Prediabetes R73.09 ; Vitamin D deficienc y E55.9 ; Mixed hyperlipidemia E78.2 and Arthritis of ankle, left M19.[address] [address] Sep, Smoking trying to quit Z72.0 ; Chronic G ERD K21.9 ; Generalized anxiety disorder F41.1 ; Other chest pain R07.89 ; Other constipation K59.09 and Right upper quadrant pain R10.[address] [address] Aug, [facility] [address] [place] [address] Aug, Other chronic pain G89.[address] [facility] [address] [place] [address] Aug, Mixed hyperlipidemia E78.2 ; Fibromyalgi a M79.7 ; Lumbago of lumbar region with sciatica M54.40 ; History of gestational diabetes Z86.32 ; Prediabetes R73.09 ; Vitamin D deficiency E55.9 ; Weight gain R63.5 ; control counseling Z30.09 ; Pain, dental K08.89 and Flank pain R10.[address] [facility] [address] [place] [address] Aug, [facility] [address] [place] [address] Jun, Acute left ankle pain M25.[address] [facility] [address] [place] [address] Jun, [facility] [address] [place] [address] Jun, [facility] [address] [place] [address] Jun, Acute left ankle pain M25.[address] [facility] [address] [place] [address] Jun, [facility] [address] [place] [address] Jun, Acute left ankle pain M25.[address] [facility] [address] [place] [address] Jun, Influenza vaccine needed Z23 and Irregul ar periods N92.[address] [facility] [address] [place] [address] May, Mixed hyperlipidemia E78.[address] [facility] [address] [place] [address] May, [facility] [address] [place] [address] May, Chronic GERD K21.[address] [facility] [address] [place] [address] Apr, Weight gain R63.[address] [facility] [address] [place] [address] Apr, Chronic GERD K21.9 and Weight gain R63.[address] [address] Mar, Depression with anxiety F41.8 and Chroni c idiopathic constipation K59.[address] [facility] [address] [place] [address] Mar, Other chronic pain G89.[address] [address] Mar, Post herpetic neuralgia B02.[address] [address] Mar, Post herpetic neuralgia B02.[address] [address] Mar, [address] [address] Mar, Other elevated white blood cell (WBC) co unt D72.[address] [address] Mar, Other elevated white blood cell (WBC) co unt D72.828 and Dyslipidemia E78.[address] [address] Feb, [address] [address] Feb, Vitamin D deficiency E55.9 ; Dyslipidemi a E78.5 ; Other elevated white blood cell (WBC) count D72.828 and Skin tag L91.[address] [address] Feb, [address] [address] Feb, Vitamin D deficiency E55.9 and Dyslipide sourav E78.[address] [facility] [address] [place] [address] Feb, [address] [address] Feb, Post herpetic neuralgia B02.29 ; Thyroid disorder screen Z13.29 ; Mixed hyperlipidemia E78.2 ; Chronic GERD K21.9 ; Lumbago of lumbar region with sciatica M54.40 ; Prediabetes R73.03 ; Other fatigue R53.83 ; Vitamin D deficiency E55.9 and Vitamin B [address] [facility] [address] [place] [address] Feb, Reactive airway disease, mild persistent , uncomplicated J45.[address] [address] Feb, Chronic GERD K21.[address] [address] Feb, Mixed hyperlipidemia E78.2 and Other chr onic pain G89.[address] [address] Feb, Lumbago with sciatica, left side M54.42 ; Mixed hyperlipidemia E78.2 and Reactive airway disease, mild persistent, uncomplicated J45.[address] [address] Feb, Chronic GERD K21.[address] [address] Feb, [address] [address] Feb, [address] [address] Feb, Post herpetic neuralgia B02.[address] [address] Feb, Allergic contact dermatitis due to other agents L23.89 and Post herpetic neuralgia B02.[address] [address] Feb, Chronic GERD K21.[address] [facility] [address] [place] [address] Feb, Chronic GERD K21.9 [facility] [address] [place] [address] January, Post herpetic neuralgia B02.29 [facility] [address] [place] [address] January, Lumbago with sciatica, left side M54.42 [facility] [address] [place] [address] January, [facility] [address] [place] [address] January, Lumbago of lumbar region with sciatica M 54.[address] [facility] [address] [place] [address] January, Other chronic pain G89.29 and Lumbago wi th sciatica, left side M54.[address] [facility] [address] [place] [address] January, Depression with anxiety F41.[address] [facility] [address] [place] [address] January, Mixed hyperlipidemia E78.[address] [facility] [address] [place] [address] January, Abscess of left groin L02.[address] [facility] [address] [place] [address] Dec, Depression with anxiety F41.[address] [facility] [address] [place] [address] Dec, Irregular periods N92.6 [facility] [address] [place] [address] Nov, Left wrist pain M25.532 and Acute left a nkle pain M25.[address] [facility] [address] [place] [address] Nov, Post herpetic neuralgia B02.29 and Absce ss of left groin L02.[address] [facility] [address] [place] [address] Sep, Irregular periods N92.[address] [address] Sep, Mixed hyperlipidemia E78.2 ; Flank pain R10.9 and Post herpetic neuralgia B02.[address] [address] Aug, Lumbago of lumbar region with sciatica M 54.40 ; Chronic idiopathic constipation K59.09 ; Depression with anxiety F41.8 and Mixed hyperlipidemia E78.[address] [address] Aug, Other chronic pain G89.[address] [address] Aug, Reactive airway disease, mild persistent , uncomplicated J45.[address] [address] Aug, [address] [address] Aug, Cough R05 and Allergic contact dermatiti s due to other agents L23.[address] [address] Aug, [address] [address] Jul, Other chronic pain G89.[address] [address] Jul, Upper respiratory tract infection, unspe cified type J06.9 ; Chronic GERD K21.9 ; Acute left ankle pain M25.572 and Lumbago of lumbar region with sciatica M54.[address] [address] Jun, Other chronic pain G89.[address] [address] Jun, [address] [address] Jun, [address] [address] Jun, Chronic GERD K21.[address] [address] Jun, [address] [address] 30 May, 2016 Pain in right wrist M25.531 ; Left wrist pain M25.532 ; Acute left ankle pain M25.572 ; Thoracic spine pain M54.6 ; Lumbago with sciatica, left side M54.42 ; Other chronic pain G89.29 and Dysuria R30.[address] [address] May, Chronic GERD K21.[address] [address] May, Chronic GERD K21.[address] [address] May, [address] [address] 19 May, [address] [address] 16 May, [address] [address] May, [address] [address] 16 May, 2016 Mixed hyperlipidemia E78.2 ; Fibromyalgi a M79.7 ; Depression with anxiety F41.8 ; Lumbago of lumbar region with sciatica M54.40 ; Encounter to establish care Z76.89 ; Chronic GERD K21.9 ; History of gestational diabetes Z86.32 ; Chronic idiopathic constipation K59.09 ; Thyroid disorder screen Z13.29 and Need for influenza vaccination Z23 [facility] [address] [place] [address] Apr, Gestational diabetes O24.419 [facility] [address] [place] [phone] Feb, Gestational diabetes O24.419 IMMUNIZATIONS No Known Immunizations SOCIAL HISTORY Never Assessed REASON FOR VISIT Pre-op-lab and EKG PLAN OF CARE Activity Details Pending Test Electrocardiogram (EKG) VITAL SIGNS MEDICATIONS Medication Instructions Dosage Frequency Start Date End Date Duration S tatus Multivitamin Adult - Act nancy Ondansetron 4 MG Orally every 4 hrs 1 tablet on the tong ue and allow to dissolve as needed 4h Active Doxycycline Hyclate 100 MG Orally Twice a day 1 capsule 12h 2 9 Jun, 2019 8 Jul, 2019 10 day(s) Active Esomeprazole Magnesium 40 MG Orally Once a day in the morning 1 cap celeste Mar, 30 day(s) Active Pravastatin Sodium 20 MG TAKE 1 TABLET BY MOUTH ONCE DAILY A T BEDTIME 90 Active Tramadol HCl 50 MG Orally Three times daily take 1-2 tablet by mouth three times daily 30 Active Sertraline HCl 100 MG Orally Once a day 2 tablet 24h 30 days Active Nortriptyline HCl 25 MG Orally QHS 1 capsule 30 Active Methocarbamol 500 MG Orally four times daily 2 tablets 01 Oc 2018 30 day(s) Active Colace 100 MG Orally Once a day 1 capsule as needed 24h 30 Active Gabapentin 800 MG Orally QID 1 tablet 6h Ac tive Dexilant 60 MG Orally Once a day 1 capsule 24h Sep, 30 day(s) Active Lamotrigine 25 MG Orally twice daily 1 tablet Mar, 30 day(s) Active Pantoprazole Sodium 40 MG Orally BID 1 tablet 12h Jul, 30 days Active Pantoprazole Sodium 20 MG Orally twice daily 1 tablet 15 2018 30 day(s) Active Cyclobenzaprine HCl 10 MG TAKE 1 TABLET BY MOUTH THREE (3) T IMES DAILY 10 Active Hydrochlorothiazide 12.5 MG Orally Once a day 1 tablet 24h 23 S 2018 30 day(s) Active Quetiapine Fumarate 25 MG Orally Once a day 2 tablets at bedtime 24 h Aug, 30 day(s) Active Bactrim DS 800-160 MG Orally Twice a day 1 tablet 12h Feb, 10 day(s) Active Nystatin 739972 UNIT/GM Externally Twice a day 1 application to affected area 12h May, 30 days Active Triamcinolone Acetonide 0.1 % Externally Twice a day 1 appli cation to affected area 12h Apr, 10 days Active Ventolin HFA 108 (90 Base) MCG/ACT Inhalation every 4 hrs 2 puffs a s needed 4h Aug, 30 days Active Mobic 15 MG Orally Once a day 1 tablet 24h Jul, 90 d ays Active Dicyclomine HCl 20 MG Orally Four times a day 1 tablet 6h 30 day(s) Active RESULTS No Results PROCEDURES Procedure Date Ordered Result Body Site -ELECTROCARDIOGRAM, COMPLETE Jul 24, 2019 Billed by outside source Jul 24, 2019 INSTRUCTIONS MEDICATIONS ADMINISTERED No Known Medications MEDICAL [...] History Fused L ankle 09/[address] [facility]- Hyperglycemia and February 2016 Hospitalization History Ankle surgery 09/2017
--- OUTSIDE RECORDS SUMMARY | 2020-03-15 21:18 | XMS REPORT ---
Author Author Solange Sultana [facility] Address [address] [place], [place] [id number] Care Team Providers [employer] Name Role Phone Kodi Lowery Felisha Unavailable PROBLEMS Type Condition ICD9-CM Code GVC74-DA Code Onset Dates Condition S tatus SNOMED Code Problem Prediabetes R73.09 Active 31336108 2 Problem Depression with anxiety F41.8 Active 513621933 Problem Fibromyalgia M79.7 Active 2089619 05 Problem Chronic GERD K21.9 Active 0437781 09 Problem Mixed hyperlipidemia E78.2 Active 904382146 Problem Right hip pain M25.551 Active 24088 [id number] Problem Pain in pelvis R10.2 Active 75945 006 Problem History of gestational diabetes Z86.32 Active 136880941 Problem Gestational diabetes O24.419 Active 82152753 Problem Other chronic pain G89.29 Active 8 0725921 Problem Pain in right wrist M25.531 Active 01193272 Problem Plantar fasciitis M72.2 Active 20 6133248 Problem Left wrist pain M25.532 Active 5660 8008 Problem Post herpetic neuralgia B02.29 Active 3196014 Problem Reactive airway disease, mild persistent, uncomplicated J45.30 Active 102839369424 Problem Lumbago of lumbar region with sciatica M54.40 Active 48415979 Problem Chronic idiopathic constipation K59.09 Active 47121501 Problem Thoracic spine pain M54.6 Active 523181148 Problem Acute left ankle pain M25.572 Active 61873215117616 Problem Lumbago with sciatica, left side M54.42 Active 589771390 Problem Other elevated white blood cell (WBC) count D72.82 8 Active 844588333 Problem Absent periods N91.2 Active 69158 001 Problem Generalized anxiety disorder F41.1 A ctive 04618641 Problem Cervical pain M54.2 Active 805082 05 Problem Decreased hearing of left ear H91.92 Active 30655024 Problem Elevated blood pressure reading R03.0 Active 42562764 Problem Left hand pain M79.642 Active 72290 4993625802 Problem Prediabetes R73.03 Active 61795696 2 Problem Irregular periods N92.6 Active 80 834266 Problem Other fatigue R53.83 Active 380987 01 Problem Vitamin D deficiency E55.9 Active 24809753 Problem Menstrual cramps N94.6 Active 431 492183 Problem Excessive daytime sleepiness G47.19 A ctive 843145747816 Problem Constipation by delayed colonic transit K59.01 Active 56049527 Problem Primary insomnia F51.01 Active 397 2004 Problem Vitamin B 12 deficiency E53.8 Active 486282680 Problem GERD with esophagitis K21.0 Active 033317017 Problem Abscess, axilla L02.419 Active 1380 2001 Problem Mild persistent asthma without complication J45.30 Active 550836195 Problem Neck pain M54.2 Active 67552255 Problem Left hip pain M25.552 Active 263490 02 Problem Right anterior shoulder pain M25.511 A ctive 81840868 Problem Dislocation of temporomandibular joint, initial encounter S03.00XA Active 383953509 Problem Irritable bowel syndrome with diarrhea K58.0 Active 823958907 Problem Essential hypertension I10 Active 94553650 Problem Cigarette nicotine dependence, uncomplicated F17.2 10 Active 09289153 Problem Rosacea L71.9 Active 779078422 Problem Radiculopathy of lumbar region M54.16 Active 845906722 Problem Spinal stenosis, lumbar region without neurogeni c claudication M48.061 Active 67004844 Problem Sleep apnea in adult G47.30 Active 41619453 Problem Bipolar disorder F31.9 Active 137 07142 ALLERGIES No Information ENCOUNTERS Encounter Location Date Diagnosis [facility] [address] [place] [address] Sep, Left hip pain M25.552 and Primary insomn ia F51.[address] [address] Aug, [address] [address] Aug, Primary insomnia F51.01 and Lumbago of l umbar region with sciatica M54.[address] [address] Jul, Lumbago of lumbar region with sciatica M 54.[address] [address] Jun, Folliculitis L73.[address] [address] Jun, Pre-op evaluation Z01.[address] [address] Jun, Folliculitis L73.[address] [address] Jun, Pre-op evaluation Z01.[address] [address] Jun, Lumbago of lumbar region with sciatica M 54.40 and Chronic GERD K21.[address] [address] Jun, [address] [address] Jun, Dislocation of temporomandibular joint, initial encounter S03.00XA [address] [address] May, Dislocation of temporomandibular joint, initial encounter S03.00XA ; Essential hypertension I10 and Intertrigo L30.[address] [address] Apr, Depression with anxiety F41.[address] [address] Apr, Primary insomnia F51.[address] [address] Apr, Lumbago of lumbar region with sciatica M 54.40 and Vitamin D deficiency E55.[address] [address] Apr, Vitamin D deficiency E55.9 [facility] [address] [place] [address] Apr, Allergic contact dermatitis due to other agents L23.89 ; Bipolar disorder F31.9 ; Mixed hyperlipidemia E78.2 ; Prediabetes R73.09 ; Vitamin D deficiency E55.9 ; Depression with anxiety F41.8 ; Dizziness R42 ; Other fatigue R53.83 ; Left anterior shoulder pain M25.512 and Left lateral ankle pain M25.[address] [address] Apr, Mixed hyperlipidemia E78.[address] [address] Apr, [address] [address] Apr, Bipolar disorder F31.9 ; Fibromyalgia M7 9.7 ; Depression with anxiety F41.8 ; Lumbago of lumbar region with sciatica M54.40 and Acute left ankle pain M25.[address] [address] Mar, Constipation by delayed colonic transit K59.01 ; Mixed hyperlipidemia E78.2 ; Depression with anxiety F41.8 ; Chronic GERD K21.9 and Bipolar disorder F31.[address] [address] Feb, Abscess L02.[address] [address] Dec, Chronic GERD K21.9 and Mixed hyperlipide sourav E78.[address] [address] Nov, [address] [address] Nov, [address] [address] Oct, Abscess, axilla L02.419 and Lumbago of l umbar region with sciatica M54.[address] [place] [address] Oct, Fall, initial encounter W19.XXXA ; Right hip pain M25.551 ; Pain in pelvis R10.2 ; Right anterior shoulder pain M25.511 ; Left hip pain M25.552 ; Neck pain M54.2 ; Depression with anxiety F41.8 and Shingles B02.[address] [address] Oct, [address] [address] Oct, Sleep apnea in adult G47.[address] [address] Sep, Mixed hyperlipidemia E78.2 ; Prediabetes R73.09 ; Vitamin D deficiency E55.9 ; Fibromyalgia M79.7 ; Chronic GERD K21.9 ; Radiculopathy of lumbar region M54.16 ; Spinal stenosis, lumbar region without neurogenic claudication M48.061 ; Vitamin B 12 deficiency E53.8 ; Depression with anxiety F41.8 ; Cervical pain M54.2 and Hospital discharge follow-up Z09 [address] [address] Sep, [address] [address] Sep, [address] [address] Sep, Post herpetic neuralgia B02.[address] [address] Sep, Mixed hyperlipidemia E78.2 ; Vitamin D [...] congestion R09.81 and GERD with esophagitis K21.0 [facility] [address] [place] [address] Aug, [facility] [address] [place] [address] Aug, Depression with anxiety F41.8 and Primar y insomnia F51.[address] [address] 13 Aug, 2018 Chronic GERD K21.[address] [address] Aug, [address] [address] 15 Jul, 2018 Irregular periods N92.6 and Menstrual cr amps N94.[address] [address] 14 Jul, [address] [address] Jul, [address] [address] 12 Jul, 2018 Abscess L02.[address] [address] 06 Jul, 2018 Mixed hyperlipidemia E78.2 ; Chronic ABDOUL D K21.9 and Generalized anxiety disorder F41.[address] [address] 06 Jul, 2018 Well woman exam with routine gynecologic al exam Z01.419 ; Menstrual cramps N94.6 ; Acute left ankle pain M25.572 ; Snoring R06.83 and Excessive daytime sleepiness G47.[address] [address] Jun, Shingles B02.[address] [address] Jun, Pruritic dermatitis L29.9 and Rosacea L7 1.[address] [address] Jun, [facility] [address] [place] [address] Jun, [facility] [address] [place] [address] Jun, [facility] [address] [place] [address] Jun, Butterfly rash R21 ; Influenza vaccine n eeded Z23 ; Prediabetes R73.09 ; Mixed hyperlipidemia E78.2 and Vitamin D deficiency E55.9 [facility] [address] [place] [address] Apr, Left ankle swelling M25.472 [facility] [address] [place] [address], [place] [address] Apr, [facility] [address] [place] [address] Apr, [facility] [address] [place] [address] Mar, Edema of left foot R60.0 [facility] [address] [place] [address] Mar, Irritable bowel syndrome with diarrhea K 58.0 [facility] [address] [place] [address] Mar, [facility] [address] [place] [address] Mar, [facility] [address] [place] [address] Mar, [facility] [address] [place] [address] Feb, Irritable bowel syndrome with diarrhea K 58.0 [facility] [address] [place] [address] Feb, [facility] [address] [place] [address] Feb, Irritable bowel syndrome with diarrhea K 58.0 [facility] [address] [place] [address] Feb, control counseling Z30.09 ; Lumbag o with sciatica, left side M54.42 and Chronic GERD K21.[address] [address] Feb, [address] [address] Feb, [address] [address] Feb, [address] [address] Feb, Diarrhea, unspecified type R19.[address] [address] Feb, Abnormal glucose R73.[address] [address] Feb, Abnormal glucose R73.[address] [address] Feb, Reactive airway disease, mild persistent , uncomplicated J45.[address] [address] Feb, Lumbago with sciatica, left side M54.42 ; Cigarette nicotine dependence, uncomplicated F17.210 ; Diarrhea, unspecified type R19.7 and Abnormal glucose R73.[address] [address] January, [address] [address] January, [address] [address] January, [address] [address] January, [address] [address] January, Muscle strain of chest wall, initial enc ounter S29.011A ; Physical exam Z00.00 ; Need for hepatitis vaccination Z23 and Abscess L02.[address] [address] Dec, Left hand pain M79.642 ; Thoracic spine pain M54.6 ; Cervical pain M54.2 and Elevated blood pressure reading R03.[address] [address] Dec, Lumbago with sciatica, left side M54.42 and Decreased hearing of left ear H91.[address] [address] Dec, Other chest pain R07.89 ; Finger pain, l eft M79.645 ; Chronic GERD K21.9 and Muscle strain of chest wall, initial encounter S29.011A [address] [address] Dec, [address] [address] Dec, Other constipation K59.09 ; Irregular pe riods N92.6 and Absent periods N91.[address] [address] Oct, [address] [address] Oct, Weight gain R63.[address] [address] Oct, Generalized anxiety disorder F41.[address] [address] Sep, [address] [address] Sep, Absent periods N91.2 and Decreased heari ng of left ear H91.[address] [address] Sep, [address] [address] Sep, Pre-op exam Z01.818 and Abscess of chest wall L02.[address] [address] Sep, [address] [address] Sep, Prediabetes R73.09 ; Vitamin D deficienc y E55.9 ; Mixed hyperlipidemia E78.2 and Arthritis of ankle, left M19.[address] [address] Sep, Smoking trying to quit Z72.0 ; Chronic G ERD K21.9 ; Generalized anxiety disorder F41.1 ; Other chest pain R07.89 ; Other constipation K59.09 and Right upper quadrant pain R10.[address] [address] Aug, [address] [address] Aug, Other chronic pain G89.[address] [address] Aug, Mixed hyperlipidemia E78.2 ; Fibromyalgi a M79.7 ; Lumbago of lumbar region with sciatica M54.40 ; History of gestational diabetes Z86.32 ; Prediabetes R73.09 ; Vitamin D deficiency E55.9 ; Weight gain R63.5 ; control counseling Z30.09 ; Pain, dental K08.89 and Flank pain R10.[address] [address] Aug, [address] [address] Jun, Acute left ankle pain M25.[address] [address] Jun, [address] [address] Jun, [address] [address] Jun, Acute left ankle pain M25.[address] [address] Jun, [address] [place] [address] Jun, Acute left ankle pain M25.572 [facility] [address] [place] [address] Jun, Influenza vaccine needed Z23 and Irregul ar periods N92.6 [facility] [address] [place] [address] May, Mixed hyperlipidemia E78.2 [facility] [address] [place] [address] May, [facility] [address] [place] [address] May, Chronic GERD K21.9 [facility] [address] [place] [address] Apr, Weight gain R63.5 [facility] [address] [place] [address] Apr, Chronic GERD K21.9 and Weight gain R63.5 [facility] [address] [place] [address] Mar, Depression with anxiety F41.8 and Chroni c idiopathic constipation K59.09 [facility] [address] [place] [address] Mar, Other chronic pain G89.29 [facility] [address] [place] [address] Mar, Post herpetic neuralgia B02.29 [facility] [address] [place] [address] Mar, Post herpetic neuralgia B02.29 [facility] [address] [place] [address] Mar, [facility] [address] [place] [address] Mar, Other elevated white blood cell (WBC) co unt D72.828 [facility] [address] [place] [address] Mar, Other elevated white blood cell (WBC) co unt D72.828 and Dyslipidemia E78.[address] [address] Feb, [address] [address] Feb, Vitamin D deficiency E55.9 ; Dyslipidemi a E78.5 ; Other elevated white blood cell (WBC) count D72.828 and Skin tag L91.[address] [address] Feb, [address] [address] Feb, Vitamin D deficiency E55.9 and Dyslipide sourav E78.[address] [address] Feb, [address] [address] Feb, Post herpetic neuralgia B02.29 ; Thyroid disorder screen Z13.29 ; Mixed hyperlipidemia E78.2 ; Chronic GERD K21.9 ; Lumbago of lumbar region with sciatica M54.40 ; Prediabetes R73.03 ; Other fatigue R53.83 ; Vitamin D deficiency E55.9 and Vitamin B 12 deficiency E53.[address] [address] Feb, Reactive airway disease, mild persistent , uncomplicated J45.[address] [address] Feb, Chronic GERD K21.[address] [address] Feb, Mixed hyperlipidemia E78.2 and Other chr onic pain G89.[address] [address] Feb, Lumbago with sciatica, left side M54.42 ; Mixed hyperlipidemia E78.2 and Reactive airway disease, mild persistent, uncomplicated J45.[address] [address] Feb, Chronic GERD K21.9 [facility] [address] [place] [address] Feb, [facility] [address] [place] [address] Feb, [facility] [address] [place] [address] 16 Feb, 2017 Post herpetic neuralgia B02.29 [facility] [address] [place] [address] Feb, Allergic contact dermatitis due to other agents L23.89 and Post herpetic neuralgia B02.29 [facility] [address] [place] [address] Feb, Chronic GERD K21.9 [facility] [address] [place] [address] Feb, Chronic GERD K21.9 [facility] [address] [place] [address] January, Post herpetic neuralgia B02.29 [facility] [address] [place] [address] January, Lumbago with sciatica, left side M54.42 [facility] [address] [place] [address] January, [facility] [address] [place] [address] January, Lumbago of lumbar region with sciatica M 54.40 [facility] [address] [place] [address] January, Other chronic pain G89.29 and Lumbago wi th sciatica, left side M54.42 [facility] [address] [place] [address] January, Depression with anxiety F41.8 [facility] [address] [place] [address] January, Mixed hyperlipidemia E78.2 [facility] [address] [place] [address] January, Abscess of left groin L02.214 [facility] [address] [place] [address] Dec, Depression with anxiety F41.8 [facility] [address] [place] [address] Dec, Irregular periods N92.6 [facility] [address] [place] [address] Nov, Left wrist pain M25.532 and Acute left a nkle pain M25.572 [facility] [address] [place] [address] Nov, Post herpetic neuralgia B02.29 and Absce ss of left groin L02.[address] [address] Sep, Irregular periods N92.[address] [address] Sep, Mixed hyperlipidemia E78.2 ; Flank pain R10.9 and Post herpetic neuralgia B02.[address] [address] Aug, Lumbago of lumbar region with sciatica M 54.40 ; Chronic idiopathic constipation K59.09 ; Depression with anxiety F41.8 and Mixed hyperlipidemia E78.[address] [address] 15 Aug, 2016 Other chronic pain G89.[address] [address] Aug, Reactive airway disease, mild persistent , uncomplicated J45.[address] [address] Aug, [address] [address] Aug, Cough R05 and Allergic contact dermatiti s due to other agents L23.[address] [address] Aug, [address] [address] Jul, Other chronic pain G89.29 [facility] [address] [place] [address] Jul, Upper respiratory tract infection, unspe cified type J06.9 ; Chronic GERD K21.9 ; Acute left ankle pain M25.572 and Lumbago of lumbar region with sciatica M54.40 [facility] [address] [place] [address] Jun, Other chronic pain G89.29 [facility] [address] [place] [address] Jun, [address] [address] Jun, [address] [address] Jun, Chronic GERD K21.[address] [address] Jun, [facility] [address] [place] [address] 30 May, 2016 Pain in right wrist M25.531 ; Left wrist pain M25.532 ; Acute left ankle pain M25.572 ; Thoracic spine pain M54.6 ; Lumbago with sciatica, left side M54.42 ; Other chronic pain G89.29 and Dysuria R30.[address] [address] May, Chronic GERD K21.[address] [address] May, Chronic GERD K21.[address] [address] May, [address] [address] 19 May, [address] [address] 16 May, 2016 [facility] [address] [place] [address] May, [facility] [address] [place] [address] May, Mixed hyperlipidemia E78.2 ; Fibromyalgi a M79.7 ; Depression with anxiety F41.8 ; Lumbago of lumbar region with sciatica M54.40 ; Encounter to establish care Z76.89 ; Chronic GERD K21.9 ; History of gestational diabetes Z86.32 ; Chronic idiopathic constipation K59.09 ; Thyroid disorder screen Z13.29 and Need for influenza vaccination Z23 [facility] [address] [place] [address] Apr, Gestational diabetes O24.419 [facility] [address] [place] [address] Feb, Gestational diabetes O24.419 IMMUNIZATIONS No Known Immunizations SOCIAL HISTORY Never Assessed REASON FOR VISIT Medication PLAN OF CARE VITAL SIGNS MEDICATIONS Medication Instructions Dosage Frequency Start Date End Date Duration S tatus Tramadol HCl 50 MG Orally Three times daily take 1-2 tablet by mouth three times daily 30 Active Multivitamin Adult - Act nancy Nystatin 470087 UNIT/GM Externally Twice a day 1 application to affected area 12h May, 30 days Active Dicyclomine HCl 20 MG Orally Four times a day 1 tablet 6h 30 day(s) Active Esomeprazole Magnesium 40 MG Orally Once a day in the morning 1 cap celeste Mar, 30 day(s) Active Cyclobenzaprine HCl 10 mg TAKE 1 TABLET BY MOUTH THREE TIMES A D AY 10 Active Lamotrigine 25 MG Orally twice daily 1 tablet Mar, 30 day(s) Active Nortriptyline HCl 25 MG Orally QHS 1 capsule 30 Active Hydrochlorothiazide 12.5 MG Orally Once a day 1 tablet 24h 23 S 2018 30 day(s) Active Ondansetron 4 MG Orally every 4 hrs 1 tablet on the tong ue and allow to dissolve as needed 4h Active Dexilant 60 MG Orally Once a day 1 capsule 24h Sep, 30 day(s) Active Methocarbamol 500 MG Orally four times daily 2 tablets Oc 2018 30 day(s) Active Mobic 15 MG Orally Once a day 1 tablet 24h Jul, 90 d ays Active Sertraline HCl 100 MG Orally Once a day 2 tablet 24h 30 days Active Colace 100 MG Orally Once a day 1 capsule as needed 24h 30 Active Triamcinolone Acetonide 0.1 % Externally Twice a day 1 appli cation to affected area 12h Apr, 10 days Active Quetiapine Fumarate 100 MG Orally Once a day 1 tablet at bedtime 24 h Aug, 30 day(s) Active Pantoprazole Sodium 40 MG Orally BID 1 tablet 12h Jul, 30 days Active Pravastatin Sodium 20 MG TAKE 1 TABLET BY MOUTH ONCE DAILY A T BEDTIME 90 Active Bactrim DS 800-160 MG Orally Twice a day 1 tablet 12h Feb, 10 day(s) Active Pantoprazole Sodium 20 mg Orally twice daily 1 tablet 30 Active Gabapentin 800 MG Orally QID 1 tablet 6h 3 days Ac tive Ventolin HFA 108 (90 Base) MCG/ACT Inhalation every 4 hrs 2 puffs a s needed 4h Aug, 30 days Active RESULTS No Results PROCEDURES No Known [...] History Fused L ankle 09/2017 Hospitalization History [facility]- Hyperglycemia and February 2016 Hospitalization History Ankle surgery 09/2017
--- OUTSIDE RECORDS SUMMARY | 2020-03-15 21:18 | XMS REPORT ---
Author Author Solange Sultana [facility] Address [address], [place] [id number] Care Team Providers Care Sales Audit Clerk Name Role Phone Kodi Lowery Felisha Unavailable PROBLEMS Type Condition ICD9-CM Code [id number] Code Onset Dates Condition S tatus SNOMED Code Problem Prediabetes R73.09 Active 97345541 2 Problem Depression with anxiety F41.8 Active 812464482 Problem Fibromyalgia M79.7 Active 7032077 05 Problem Chronic GERD K21.9 Active 1963916 09 Problem Mixed hyperlipidemia E78.2 Active 846670079 Problem Right hip pain M25.551 Active 85161 3914279288 Problem Pain in pelvis R10.2 Active 55555 006 Problem History of gestational diabetes Z86.32 Active 506384929 Problem Gestational diabetes O24.419 Active 35856290 Problem Other chronic pain G89.29 Active 8 2071924 Problem Pain in right wrist M25.531 Active 02108148 Problem Plantar fasciitis M72.2 Active 20 7987536 Problem Left wrist pain M25.532 Active 5660 8008 Problem Post herpetic neuralgia B02.29 Active 4722365 Problem Reactive airway disease, mild persistent, uncomplicated J45.30 Active 200700644200 Problem Lumbago of lumbar region with sciatica M54.40 Active 66495797 Problem Chronic idiopathic constipation K59.09 Active 48891708 Problem Thoracic spine pain M54.6 Active 008611064 Problem Acute left ankle pain M25.572 Active 55320221187872 Problem Lumbago with sciatica, left side M54.42 Active 450187904 Problem Other elevated white blood cell (WBC) count D72.82 8 Active 890951778 Problem Absent periods N91.2 Active 55265 001 Problem Generalized anxiety disorder F41.1 A ctive 47914910 Problem Cervical pain M54.2 Active 482462 05 Problem Decreased hearing of left ear H91.92 Active 35311356 Problem Elevated blood pressure reading R03.0 Active 96116327 Problem Left hand pain M79.642 Active 77226 2511623139 Problem Prediabetes R73.03 Active 81676189 2 Problem Irregular periods N92.6 Active 80 251874 Problem Other fatigue R53.83 Active 119753 01 Problem Vitamin D deficiency E55.9 Active 07235414 Problem Menstrual cramps N94.6 Active 431 279505 Problem Excessive daytime sleepiness G47.19 A ctive 124857857586 Problem Constipation by delayed colonic transit K59.01 Active 78506854 Problem Primary insomnia F51.01 Active 397 2004 Problem Vitamin B 12 deficiency E53.8 Active 308734081 Problem GERD with esophagitis K21.0 Active 038481137 Problem Abscess, axilla L02.419 Active 1380 2001 Problem Mild persistent asthma without complication J45.30 Active 828140487 Problem Neck pain M54.2 Active 85090888 Problem Left hip pain M25.552 Active 061872 02 Problem Right anterior shoulder pain M25.511 A ctive 60238725 Problem Dislocation of temporomandibular joint, initial encounter S03.00XA Active 324088539 Problem Irritable bowel syndrome with diarrhea K58.0 Active 493817965 Problem Essential hypertension I10 Active 56133714 Problem Cigarette nicotine dependence, uncomplicated F17.2 10 Active 69567412 Problem Rosacea L71.9 Active 190801401 Problem Radiculopathy of lumbar region M54.16 Active 004867233 Problem Spinal stenosis, lumbar region without neurogeni c claudication M48.061 Active 94171143 Problem Sleep apnea in adult G47.30 Active 75076252 Problem Bipolar disorder F31.9 Active 137 16339 ALLERGIES No Information ENCOUNTERS Encounter Location Date Diagnosis [facility] [address] [place] [address] Aug, Primary insomnia F51.01 and Lumbago of l umbar region with sciatica M54.[address] [address] Jul, Lumbago of lumbar region with sciatica M 54.[address] [address] Jun, Folliculitis L73.[address] [address] Jun, Pre-op evaluation Z01.[address] [address] Jun, Folliculitis L73.[address] [address] Jun, Pre-op evaluation Z01.[address] [address] Jun, Lumbago of lumbar region with sciatica M 54.40 and Chronic GERD K21.[address] [address] Jun, [address] [address] Jun, Dislocation of temporomandibular joint, initial encounter S03.00XA [address] [address] May, Dislocation of temporomandibular joint, initial encounter S03.00XA ; Essential hypertension I10 and Intertrigo L30.[address] [address] Apr, Depression with anxiety F41.[address] [address] Apr, Primary insomnia F51.[address] [address] Apr, Lumbago of lumbar region with sciatica M 54.40 and Vitamin D deficiency E55.[address] [address] Apr, Vitamin D deficiency E55.[address] [address] Apr, Allergic contact dermatitis due to other agents L23.89 ; Bipolar disorder F31.9 ; Mixed hyperlipidemia E78.2 ; Prediabetes R73.09 ; Vitamin D deficiency E55.9 ; Depression with anxiety F41.8 ; Dizziness R42 ; Other fatigue R53.83 ; Left anterior shoulder pain M25.512 and Left lateral ankle pain M25.[address] [address] 16 Apr, 2019 Mixed hyperlipidemia E78.[address] [address] Apr, [address] [address] Apr, Bipolar disorder F31.9 ; Fibromyalgia M7 9.7 ; Depression with anxiety F41.8 ; Lumbago of lumbar region with sciatica M54.40 and Acute left ankle pain M25.[address] [address] Mar, Constipation by delayed colonic transit K59.01 ; Mixed hyperlipidemia E78.2 ; Depression with anxiety F41.8 ; Chronic GERD K21.9 and Bipolar disorder F31.[address] [address] Feb, Abscess L02.[address] [address] Dec, Chronic GERD K21.9 and Mixed hyperlipide sourav E78.[address] [address] Nov, [address] [address] Nov, [address] [address] Oct, Abscess, axilla L02.419 and Lumbago of l umbar region with sciatica M54.[address] [address] Oct, Fall, initial encounter W19.XXXA ; Right hip pain M25.551 ; Pain in pelvis R10.2 ; Right anterior shoulder pain M25.511 ; Left hip pain M25.552 ; Neck pain M54.2 ; Depression with anxiety F41.8 and Shingles B02.[address] [address] 06 Oct, [address] [address] Oct, Sleep apnea in adult G47.[address] [address] Sep, Mixed hyperlipidemia E78.2 ; Prediabetes R73.09 ; Vitamin D deficiency E55.9 ; Fibromyalgia M79.7 ; Chronic GERD K21.9 ; Radiculopathy of lumbar region M54.16 ; Spinal stenosis, lumbar region without neurogenic claudication M48.061 ; Vitamin B 12 deficiency E53.8 ; Depression with anxiety F41.8 ; Cervical pain M54.2 and Hospital discharge follow-up Z09 [address] [address] Sep, [address] [address] Sep, [address] [address] Sep, Post herpetic neuralgia B02.[address] [address] Sep, Mixed hyperlipidemia E78.2 ; Vitamin D [...] congestion R09.81 and GERD with esophagitis K21.[address] [address] Aug, [address] [address] Aug, Depression with anxiety F41.8 and Primar y insomnia F51.01 [facility] [address] [place] [address] Aug, Chronic GERD K21.9 [facility] [address] [place] [address] Aug, [facility] [address] [place] [address] 15 Jul, 2018 Irregular periods N92.6 and Menstrual cr amps N94.6 [facility] [address] [place] [address] 14 Jul, [address] [address] Jul, [facility] [address] [place] [address] 12 Jul, 2018 Abscess L02.[address] [address] 06 Jul, 2018 Mixed hyperlipidemia E78.2 ; Chronic ABDOUL D K21.9 and Generalized anxiety disorder F41.[address] [address] 06 Jul, 2018 Well woman exam with routine gynecologic al exam Z01.419 ; Menstrual cramps N94.6 ; Acute left ankle pain M25.572 ; Snoring R06.83 and Excessive daytime sleepiness G47.[address] [address] Jun, Shingles B02.9 [facility] [address] [place] [address] Jun, Pruritic dermatitis L29.9 and Rosacea L7 1.[address] [address] Jun, [facility] [address] [place] [address] Jun, [facility] [address] [place] [address] Jun, [address] [address] Jun, Butterfly rash R21 ; Influenza vaccine n eeded Z23 ; Prediabetes R73.09 ; Mixed hyperlipidemia E78.2 and Vitamin D deficiency E55.9 [facility] [address] [place] [address] Apr, Left ankle swelling M25.472 [facility] [address] [place] [address] Apr, [facility] [address] [place] [address] Apr, [facility] [address] [place] [address] Mar, Edema of left foot R60.0 [facility] [address] [place] [address] Mar, Irritable bowel syndrome with diarrhea K 58.0 [facility] [address] [place] [address] Mar, [facility] [address] [place] [address] Mar, [facility] [address] [place] [address] Mar, [facility] [address] [place] [address] Feb, Irritable bowel syndrome with diarrhea K 58.0 [facility] [address] [place] [address] Feb, [facility] [address] [place] [address] Feb, Irritable bowel syndrome with diarrhea K 58.0 [facility] [address] [place] [address] Feb, control counseling Z30.09 ; Lumbag o with sciatica, left side M54.42 and Chronic GERD K21.9 [facility] [address] [place] [address] Feb, [facility] [address] [place] [address] Feb, [facility] [address] [place] [address] Feb, [address] [address] Feb, Diarrhea, unspecified type R19.7 [facility] [address] [place] [address] Feb, Abnormal glucose R73.[address] [address] Feb, Abnormal glucose R73.[address] [address] Feb, Reactive airway disease, mild persistent , uncomplicated J45.[address] [address] Feb, Lumbago with sciatica, left side M54.42 ; Cigarette nicotine dependence, uncomplicated F17.210 ; Diarrhea, unspecified type R19.7 and Abnormal glucose R73.[address] [address] January, [address] [address] January, [address] [address] January, [address] [address] January, [address] [address] January, Muscle strain of chest wall, initial enc ounter S29.011A ; Physical exam Z00.00 ; Need for hepatitis vaccination Z23 and Abscess L02.[address] [address] Dec, Left hand pain M79.642 ; Thoracic spine pain M54.6 ; Cervical pain M54.2 and Elevated blood pressure reading R03.[address] [address] Dec, Lumbago with sciatica, left side M54.42 and Decreased hearing of left ear H91.[address] [address] Dec, Other chest pain R07.89 ; Finger pain, l eft M79.645 ; Chronic GERD K21.9 and Muscle strain of chest wall, initial encounter S29.011A [address] [address] Dec, [address] [address] Dec, Other constipation K59.09 ; Irregular pe riods N92.6 and Absent periods N91.[address] [address] Oct, [address] [address] Oct, Weight gain R63.[address] [address] Oct, Generalized anxiety disorder F41.[address] [address] Sep, [address] [address] Sep, Absent periods N91.2 and Decreased heari ng of left ear H91.[address] [address] Sep, [address] [address] Sep, Pre-op exam Z01.818 and Abscess of chest wall L02.[address] [address] Sep, [address] [address] Sep, Prediabetes R73.09 ; Vitamin D deficienc y E55.9 ; Mixed hyperlipidemia E78.2 and Arthritis of ankle, left M19.072 [address] [place] [address] Sep, Smoking trying to quit Z72.0 ; Chronic G ERD K21.9 ; Generalized anxiety disorder F41.1 ; Other chest pain R07.89 ; Other constipation K59.09 and Right upper quadrant pain R10.11 [facility] [address] [place] [address] Aug, [facility] [address] [place] [address] Aug, Other chronic pain G89.29 [facility] [address] [place] [address] Aug, Mixed hyperlipidemia E78.2 ; Fibromyalgi a M79.7 ; Lumbago of lumbar region with sciatica M54.40 ; History of gestational diabetes Z86.32 ; Prediabetes R73.09 ; Vitamin D deficiency E55.9 ; Weight gain R63.5 ; control counseling Z30.09 ; Pain, dental K08.89 and Flank pain R10.9 [facility] [address] [place] [address] Aug, [facility] [address] [place] [address] Jun, Acute left ankle pain M25.572 [facility] [address] [place] [address] Jun, [address] [address] Jun, [facility] [address] [place] [address] Jun, Acute left ankle pain M25.572 [facility] [address] [place] [address] Jun, [facility] [address] [place] [address] Jun, Acute left ankle pain M25.572 [facility] [address] [place] [address] Jun, Influenza vaccine needed Z23 and Irregul ar periods N92.6 [address] [place] [address] May, Mixed hyperlipidemia E78.2 [facility] [address] [place] [address] May, [facility] [address] [place] [address] May, Chronic GERD K21.9 [facility] [address] [place] [address] Apr, Weight gain R63.5 [facility] [address] [place] [address] Apr, Chronic GERD K21.9 and Weight gain R63.[address] [address] Mar, Depression with anxiety F41.8 and Chroni c idiopathic constipation K59.[address] [address] Mar, Other chronic pain G89.[address] [address] Mar, Post herpetic neuralgia B02.[address] [address] Mar, Post herpetic neuralgia B02.[address] [address] Mar, [facility] [address] [place] [address] Mar, Other elevated white blood cell (WBC) co unt D72.828 [facility] [address] [place] [address] Mar, Other elevated white blood cell (WBC) co unt D72.828 and Dyslipidemia E78.[address] [address] Feb, [facility] [address] [place] [address] Feb, Vitamin D deficiency E55.9 ; Dyslipidemi a E78.5 ; Other elevated white blood cell (WBC) count D72.828 and Skin tag L91.[address] [address] Feb, [address] [address] Feb, Vitamin D deficiency E55.9 and Dyslipide sourav E78.[address] [address] Feb, [address] [address] Feb, Post herpetic neuralgia B02.29 ; Thyroid disorder screen Z13.29 ; Mixed hyperlipidemia E78.2 ; Chronic GERD K21.9 ; Lumbago of lumbar region with sciatica M54.40 ; Prediabetes R73.03 ; Other fatigue R53.83 ; Vitamin D deficiency E55.9 and Vitamin B 12 deficiency E53.[address] [address] Feb, Reactive airway disease, mild persistent , uncomplicated J45.[address] [address] Feb, Chronic GERD K21.[address] [address] Feb, Mixed hyperlipidemia E78.2 and Other chr onic pain G89.[address] [address] Feb, Lumbago with sciatica, left side M54.42 ; Mixed hyperlipidemia E78.2 and Reactive airway disease, mild persistent, uncomplicated J45.[address] [address] Feb, Chronic GERD K21.[address] [address] Feb, [address] [address] Feb, [address] [place] [address] 16 Feb, 2017 Post herpetic neuralgia B02.29 [facility] [address] [place] [address] 16 Feb, 2017 Allergic contact dermatitis due to other agents L23.89 and Post herpetic neuralgia B02.29 [facility] [address] [place] [address] 16 Feb, 2017 Chronic GERD K21.9 [facility] [address] [place] [address] Feb, Chronic GERD K21.9 [facility] [address] [place] [address] January, Post herpetic neuralgia B02.29 [facility] [address] [place] [address] January, Lumbago with sciatica, left side M54.42 [facility] [address] [place] [address] January, [facility] [address] [place] [address] January, Lumbago of lumbar region with sciatica M 54.[address] [address] January, Other chronic pain G89.29 and Lumbago wi th sciatica, left side M54.42 [facility] [address] [place] [address] January, Depression with anxiety F41.8 [facility] [address] [place] [address] January, Mixed hyperlipidemia E78.2 [facility] [address] [place] [address] January, Abscess of left groin L02.214 [facility] [address] [place] [address] Dec, Depression with anxiety F41.8 [facility] [address] [place] [address] Dec, Irregular periods N92.6 [facility] [address] [place] [address] Nov, Left wrist pain M25.532 and Acute left a nkle pain M25.[address] [address] Nov, Post herpetic neuralgia B02.29 and Absce ss of left groin L02.[address] [address] Sep, Irregular periods N92.[address] [address] Sep, Mixed hyperlipidemia E78.2 ; Flank pain R10.9 and Post herpetic neuralgia B02.[address] [address] Aug, Lumbago of lumbar region with sciatica M 54.40 ; Chronic idiopathic constipation K59.09 ; Depression with anxiety F41.8 and Mixed hyperlipidemia E78.[address] [address] 15 Aug, 2016 Other chronic pain G89.[address] [address] 09 Aug, 2016 Reactive airway disease, mild persistent , uncomplicated J45.[address] [address] Aug, [address] [address] Aug, Cough R05 and Allergic contact dermatiti s due to other agents L23.[address] [address] 05 Aug, [address] [address] Jul, Other chronic pain G89.[address] [address] 09 Jul, 2016 Upper respiratory tract infection, unspe cified type J06.9 ; Chronic GERD K21.9 ; Acute left ankle pain M25.572 and Lumbago of lumbar region with sciatica M54.[address] [address] Jun, Other chronic pain G89.[address] [address] Jun, [address] [address] Jun, [address] [address] Jun, Chronic GERD K21.[address] [address] Jun, [address] [address] 30 May, 2016 Pain in right wrist M25.531 ; Left wrist pain M25.532 ; Acute left ankle pain M25.572 ; Thoracic spine pain M54.6 ; Lumbago with sciatica, left side M54.42 ; Other chronic pain G89.29 and Dysuria R30.[address] [address] May, Chronic GERD K21.[address] [address] May, Chronic GERD K21.[address] [address] May, [address] [address] May, [address] [address] May, [address] [address] May, [address] [address] 16 May, 2016 Mixed hyperlipidemia E78.2 ; Fibromyalgi a M79.7 ; Depression with anxiety F41.8 ; Lumbago of lumbar region with sciatica M54.40 ; Encounter to establish care Z76.89 ; Chronic GERD K21.9 ; History of gestational diabetes Z86.32 ; Chronic idiopathic constipation K59.09 ; Thyroid disorder screen Z13.29 and Need for influenza vaccination Z23 [facility] [address] [place] [address] Apr, Gestational diabetes O24.419 [facility] [address] [place] [address] Feb, Gestational diabetes O24.419 IMMUNIZATIONS No Known Immunizations SOCIAL HISTORY Never Assessed REASON FOR VISIT refills PLAN OF CARE VITAL SIGNS MEDICATIONS Medication Instructions Dosage Frequency Start Date End Date Duration S tatus Quetiapine Fumarate 25 MG Orally Once a day 2 tablets at bedtime 24 h Aug, 30 day(s) Active Tramadol HCl 50 MG Orally Three times daily take 1-2 tablet by mouth three times daily 30 Active Cyclobenzaprine HCl 10 mg TAKE 1 TABLET BY MOUTH THREE TIMES A D AY 10 Active RESULTS No Results PROCEDURES No Known [...] History Fused L ankle 09/2017 Hospitalization History [facility]- Hyperglycemia and February 2016 Hospitalization History Ankle surgery 09/2017
--- OUTSIDE RECORDS SUMMARY | 2020-03-15 21:18 | XMS REPORT ---
Author Author Solange Sultana [facility] Address [address] [place], [place] [id number] Care Team Providers Care Auto Porter Name Role Phone Kodi Lowery Felisha Unavailable PROBLEMS Type Condition ICD9-CM Code TRU23-ZV Code Onset Dates Condition S tatus SNOMED Code Problem Prediabetes R73.09 Active 48391012 2 Problem Depression with anxiety F41.8 Active 370289720 Problem Fibromyalgia M79.7 Active 2419447 05 Problem Chronic GERD K21.9 Active 7970356 09 Problem Mixed hyperlipidemia E78.2 Active 422059080 Problem Right hip pain M25.551 Active 26668 6110296152 Problem Pain in pelvis R10.2 Active 90197 006 Problem History of gestational diabetes Z86.32 Active 892763261 Problem Gestational diabetes O24.419 Active 76009575 Problem Other chronic pain G89.29 Active 8 2290939 Problem Pain in right wrist M25.531 Active 41500834 Problem Plantar fasciitis M72.2 Active 20 3955750 Problem Left wrist pain M25.532 Active 5660 8008 Problem Post herpetic neuralgia B02.29 Active 3372599 Problem Reactive airway disease, mild persistent, uncomplicated J45.30 Active 953270269601 Problem Lumbago of lumbar region with sciatica M54.40 Active 65370363 Problem Chronic idiopathic constipation K59.09 Active 65465124 Problem Thoracic spine pain M54.6 Active 890809844 Problem Acute left ankle pain M25.572 Active 19504241279546 Problem Lumbago with sciatica, left side M54.42 Active 435530800 Problem Other elevated white blood cell (WBC) count D72.82 8 Active 870243834 Problem Absent periods N91.2 Active 20619 001 Problem Generalized anxiety disorder F41.1 A ctive 74427451 Problem Cervical pain M54.2 Active 377633 05 Problem Decreased hearing of left ear H91.92 Active 60291468 Problem Elevated blood pressure reading R03.0 Active 08372872 Problem Left hand pain M79.642 Active 41387 0747857539 Problem Prediabetes R73.03 Active 67642199 2 Problem Irregular periods N92.6 Active 80 705210 Problem Other fatigue R53.83 Active 726453 01 Problem Vitamin D deficiency E55.9 Active 07724778 Problem Menstrual cramps N94.6 Active 431 280320 Problem Excessive daytime sleepiness G47.19 A ctive 260105837596 Problem Constipation by delayed colonic transit K59.01 Active 38396886 Problem Primary insomnia F51.01 Active 397 2004 Problem Vitamin B 12 deficiency E53.8 Active 180809289 Problem GERD with esophagitis K21.0 Active 930942519 Problem Abscess, axilla L02.419 Active 1380 2001 Problem Mild persistent asthma without complication J45.30 Active 541911892 Problem Neck pain M54.2 Active 30206678 Problem Left hip pain M25.552 Active 631177 02 Problem Right anterior shoulder pain M25.511 A ctive 93356633 Problem Dislocation of temporomandibular joint, initial encounter S03.00XA Active 426757593 Problem Irritable bowel syndrome with diarrhea K58.0 Active 676963125 Problem Essential hypertension I10 Active 29706088 Problem Cigarette nicotine dependence, uncomplicated F17.2 10 Active 81691218 Problem Rosacea L71.9 Active 921102791 Problem Radiculopathy of lumbar region M54.16 Active 439231952 Problem Spinal stenosis, lumbar region without neurogeni c claudication M48.061 Active 55267499 Problem Sleep apnea in adult G47.30 Active 39635826 Problem Bipolar disorder F31.9 Active 137 47139 ALLERGIES No Information ENCOUNTERS Encounter Location Date Diagnosis [facility] [address] [place] [address] Aug, [facility] [address] [place] [address] Aug, Primary insomnia F51.01 and Lumbago of l umbar region with sciatica M54.40 [facility] [address] [place] [address] Jul, Lumbago of lumbar region with sciatica M 54.40 [facility] [address] [place] [address] Jun, Folliculitis L73.[address] [address] Jun, Pre-op evaluation Z01.[address] [address] Jun, Folliculitis L73.[address] [address] Jun, Pre-op evaluation Z01.[address] [address] Jun, Lumbago of lumbar region with sciatica M 54.40 and Chronic GERD K21.[address] [address] Jun, [address] [address] Jun, Dislocation of temporomandibular joint, initial encounter S03.00XA [address] [address] May, Dislocation of temporomandibular joint, initial encounter S03.00XA ; Essential hypertension I10 and Intertrigo L30.[address] [address] Apr, Depression with anxiety F41.[address] [address] Apr, Primary insomnia F51.[address] [address] Apr, Lumbago of lumbar region with sciatica M 54.40 and Vitamin D deficiency E55.[address] [address] Apr, Vitamin D deficiency E55.[address] [address] Apr, Allergic contact dermatitis due to other agents L23.89 ; Bipolar disorder F31.9 ; Mixed hyperlipidemia E78.2 ; Prediabetes R73.09 ; Vitamin D deficiency E55.9 ; Depression with anxiety F41.8 ; Dizziness R42 ; Other fatigue R53.83 ; Left anterior shoulder pain M25.512 and Left lateral ankle pain M25.[address] [address] 16 Apr, 2019 Mixed hyperlipidemia E78.[address] [address] Apr, [address] [address] Apr, Bipolar disorder F31.9 ; Fibromyalgia M7 9.7 ; Depression with anxiety F41.8 ; Lumbago of lumbar region with sciatica M54.40 and Acute left ankle pain M25.[address] [address] Mar, Constipation by delayed colonic transit K59.01 ; Mixed hyperlipidemia E78.2 ; Depression with anxiety F41.8 ; Chronic GERD K21.9 and Bipolar disorder F31.[address] [address] Feb, Abscess L02.[address] [address] Dec, Chronic GERD K21.9 and Mixed hyperlipide sourav E78.[address] [address] Nov, [address] [address] Nov, [address] [address] Oct, Abscess, axilla L02.419 and Lumbago of l umbar region with sciatica M54.[address] [address] Oct, Fall, initial encounter W19.XXXA ; Right hip pain M25.551 ; Pain in pelvis R10.2 ; Right anterior shoulder pain M25.511 ; Left hip pain M25.552 ; Neck pain M54.2 ; Depression with anxiety F41.8 and Shingles B02.[address] [address] Oct, [address] [address] Oct, Sleep apnea in adult G47.[address] [address] Sep, Mixed hyperlipidemia E78.2 ; Prediabetes R73.09 ; Vitamin D deficiency E55.9 ; Fibromyalgia M79.7 ; Chronic GERD K21.9 ; Radiculopathy of lumbar region M54.16 ; Spinal stenosis, lumbar region without neurogenic claudication M48.061 ; Vitamin B 12 deficiency E53.8 ; Depression with anxiety F41.8 ; Cervical pain M54.2 and Hospital discharge follow-up Z09 [address] [address] Sep, [address] [address] Sep, [address] [address] Sep, Post herpetic neuralgia B02.[address] [address] Sep, Mixed hyperlipidemia E78.2 ; Vitamin D [...] congestion R09.81 and GERD with esophagitis K21.[address] [address] Aug, [facility] [address] [place] [address] Aug, Depression with anxiety F41.8 and Primar y insomnia F51.[address] [address] Aug, Chronic GERD K21.[address] [address] Aug, [address] [address] 15 Jul, 2018 Irregular periods N92.6 and Menstrual cr amps N94.[address] [address] Jul, [address] [address] Jul, [address] [address] Jul, Abscess L02.[address] [address] 06 Jul, 2018 Mixed hyperlipidemia E78.2 ; Chronic ABDOUL D K21.9 and Generalized anxiety disorder F41.[address] [address] 06 Jul, 2018 Well woman exam with routine gynecologic al exam Z01.419 ; Menstrual cramps N94.6 ; Acute left ankle pain M25.572 ; Snoring R06.83 and Excessive daytime sleepiness G47.[address] [address] Jun, Shingles B02.[address] [address] Jun, Pruritic dermatitis L29.9 and Rosacea L7 1.[address] [address] Jun, [address] [address] Jun, [address] [address] Jun, [facility] [address] [place] [address] Jun, Butterfly rash R21 ; Influenza vaccine n eeded Z23 ; Prediabetes R73.09 ; Mixed hyperlipidemia E78.2 and Vitamin D deficiency E55.9 [facility] [address] [place] [address] Apr, Left ankle swelling M25.472 [facility] [address] [place] [address] Apr, [facility] [address] [place] [address] Apr, [facility] [address] [place] [address], [place] [address] Mar, Edema of left foot R60.0 [facility] [address] [place] [address], [place] [address] Mar, Irritable bowel syndrome with diarrhea K 58.0 [facility] [address] [place] [address] Mar, [facility] [address] [place] [address] Mar, [facility] [address] [place] [address] Mar, [facility] [address] [place] [address] Feb, Irritable bowel syndrome with diarrhea K 58.0 [facility] [address] [place] [address] Feb, [facility] [address] [place] [address] Feb, Irritable bowel syndrome with diarrhea K 58.0 [facility] [address] [place] [address], [place] [address] Feb, control counseling Z30.09 ; Lumbag o with sciatica, left side M54.42 and Chronic GERD K21.9 [facility] [address] [place] [address], [place] [address] Feb, [facility] [address] [place] [address] Feb, [address] [address] Feb, [address] [address] Feb, Diarrhea, unspecified type R19.[address] [address] Feb, Abnormal glucose R73.[address] [address] Feb, Abnormal glucose R73.[address] [address] Feb, Reactive airway disease, mild persistent , uncomplicated J45.[address] [address] Feb, Lumbago with sciatica, left side M54.42 ; Cigarette nicotine dependence, uncomplicated F17.210 ; Diarrhea, unspecified type R19.7 and Abnormal glucose R73.[address] [address] January, [address] [address] January, [address] [address] January, [address] [address] January, [address] [address] January, Muscle strain of chest wall, initial enc ounter S29.011A ; Physical exam Z00.00 ; Need for hepatitis vaccination Z23 and Abscess L02.[address] [address] Dec, Left hand pain M79.642 ; Thoracic spine pain M54.6 ; Cervical pain M54.2 and Elevated blood pressure reading R03.[address] [address] Dec, Lumbago with sciatica, left side M54.42 and Decreased hearing of left ear H91.[address] [address] Dec, Other chest pain R07.89 ; Finger pain, l eft M79.645 ; Chronic GERD K21.9 and Muscle strain of chest wall, initial encounter S29.011A [address] [address] Dec, [address] [address] Dec, Other constipation K59.09 ; Irregular pe riods N92.6 and Absent periods N91.[address] [address] Oct, [address] [address] Oct, Weight gain R63.[address] [address] Oct, Generalized anxiety disorder F41.[address] [address] Sep, [address] [address] Sep, Absent periods N91.2 and Decreased heari ng of left ear H91.[address] [address] Sep, [address] [address] Sep, Pre-op exam Z01.818 and Abscess of chest wall L02.[address] [address] Sep, [address] [address] Sep, Prediabetes R73.09 ; Vitamin D deficienc y E55.9 ; Mixed hyperlipidemia E78.2 and Arthritis of ankle, left M19.[address] [address] Sep, Smoking trying to quit Z72.0 ; Chronic G ERD K21.9 ; Generalized anxiety disorder F41.1 ; Other chest pain R07.89 ; Other constipation K59.09 and Right upper quadrant pain R10.[address] [address] Aug, [address] [address] Aug, Other chronic pain G89.[address] [address] Aug, Mixed hyperlipidemia E78.2 ; Fibromyalgi a M79.7 ; Lumbago of lumbar region with sciatica M54.40 ; History of gestational diabetes Z86.32 ; Prediabetes R73.09 ; Vitamin D deficiency E55.9 ; Weight gain R63.5 ; control counseling Z30.09 ; Pain, dental K08.89 and Flank pain R10.[address] [address] Aug, [address] [address] Jun, Acute left ankle pain M25.[address] [address] Jun, [address] [address] Jun, [address] [address] Jun, Acute left ankle pain M25.[address] [address] Jun, [address] [address] Jun, Acute left ankle pain M25.[address] [address] Jun, Influenza vaccine needed Z23 and Irregul ar periods N92.6 [facility] [address] [place] [address] May, Mixed hyperlipidemia E78.2 [facility] [address] [place] [address] May, [facility] [address] [place] [address] May, Chronic GERD K21.9 [facility] [address] [place] [address] Apr, Weight gain R63.[address] [address] Apr, Chronic GERD K21.9 and Weight gain R63.[address] [address] Mar, Depression with anxiety F41.8 and Chroni c idiopathic constipation K59.[address] [address] Mar, Other chronic pain G89.[address] [address] Mar, Post herpetic neuralgia B02.[address] [address] Mar, Post herpetic neuralgia B02.[address] [address] Mar, [facility] [address] [place] [address] Mar, Other elevated white blood cell (WBC) co unt D72.[address] [address] Mar, Other elevated white blood cell (WBC) co unt D72.828 and Dyslipidemia E78.[address] [address] Feb, [address] [address] Feb, Vitamin D deficiency E55.9 ; Dyslipidemi a E78.5 ; Other elevated white blood cell (WBC) count D72.828 and Skin tag L91.[address] [address] Feb, [address] [address] Feb, Vitamin D deficiency E55.9 and Dyslipide sourav E78.[address] [address] Feb, [address] [address] Feb, Post herpetic neuralgia B02.29 ; Thyroid disorder screen Z13.29 ; Mixed hyperlipidemia E78.2 ; Chronic GERD K21.9 ; Lumbago of lumbar region with sciatica M54.40 ; Prediabetes R73.03 ; Other fatigue R53.83 ; Vitamin D deficiency E55.9 and Vitamin B 12 deficiency E53.[address] [address] Feb, Reactive airway disease, mild persistent , uncomplicated J45.[address] [address] Feb, Chronic GERD K21.[address] [address] Feb, Mixed hyperlipidemia E78.2 and Other chr onic pain G89.[address] [address] Feb, Lumbago with sciatica, left side M54.42 ; Mixed hyperlipidemia E78.2 and Reactive airway disease, mild persistent, uncomplicated J45.[address] [address] Feb, Chronic GERD K21.[address] [address] Feb, [address] [place] [address] 19 Feb, 2017 [facility] [address] [place] [address] Feb, Post herpetic neuralgia B02.29 [facility] [address] [place] [address] 16 Feb, 2017 Allergic contact dermatitis due to other agents L23.89 and Post herpetic neuralgia B02.29 [facility] [address] [place] [address] 16 Feb, 2017 Chronic GERD K21.9 [facility] [address] [place] [address] Feb, Chronic GERD K21.9 [facility] [address] [place] [address] January, Post herpetic neuralgia B02.[address] [address] January, Lumbago with sciatica, left side M54.42 [facility] [address] [place] [address] January, [address] [address] January, Lumbago of lumbar region with sciatica M 54.[address] [address] January, Other chronic pain G89.29 and Lumbago wi th sciatica, left side M54.42 [facility] [address] [place] [address] January, Depression with anxiety F41.[address] [address] January, Mixed hyperlipidemia E78.[address] [address] January, Abscess of left groin L02.[address] [address] Dec, Depression with anxiety F41.8 [facility] [address] [place] [address] Dec, Irregular periods N92.[address] [address] Nov, Left wrist pain M25.532 and Acute left a nkle pain M25.[address] [address] Nov, Post herpetic neuralgia B02.29 and Absce ss of left groin L02.[address] [address] Sep, Irregular periods N92.[address] [address] Sep, Mixed hyperlipidemia E78.2 ; Flank pain R10.9 and Post herpetic neuralgia B02.[address] [address] Aug, Lumbago of lumbar region with sciatica M 54.40 ; Chronic idiopathic constipation K59.09 ; Depression with anxiety F41.8 and Mixed hyperlipidemia E78.[address] [address] Aug, Other chronic pain G89.[address] [address] 09 Aug, 2016 Reactive airway disease, mild persistent , uncomplicated J45.[address] [address] Aug, [address] [address] Aug, Cough R05 and Allergic contact dermatiti s due to other agents L23.[address] [address] 05 Aug, [address] [address] Jul, Other chronic pain G89.[address] [address] Jul, Upper respiratory tract infection, unspe cified type J06.9 ; Chronic GERD K21.9 ; Acute left ankle pain M25.572 and Lumbago of lumbar region with sciatica M54.[address] [address] Jun, Other chronic pain G89.[address] [address] Jun, [address] [address] Jun, [address] [address] Jun, Chronic GERD K21.[address] [address] Jun, [address] [address] May, Pain in right wrist M25.531 ; Left wrist pain M25.532 ; Acute left ankle pain M25.572 ; Thoracic spine pain M54.6 ; Lumbago with sciatica, left side M54.42 ; Other chronic pain G89.29 and Dysuria R30.[address] [address] May, Chronic GERD K21.[address] [address] May, Chronic GERD K21.[address] [address] May, [address] [address] May, [address] [address] May, [address] [address] May, [address] [address] May, Mixed hyperlipidemia E78.2 ; Fibromyalgi a M79.7 ; Depression with anxiety F41.8 ; Lumbago of lumbar region with sciatica M54.40 ; Encounter to establish care Z76.89 ; Chronic GERD K21.9 ; History of gestational diabetes Z86.32 ; Chronic idiopathic constipation K59.09 ; Thyroid disorder screen Z13.29 and Need for influenza vaccination Z23 [facility] [address] [place] [address] Apr, Gestational diabetes O24.419 [facility] [address] [place] [address] Feb, Gestational diabetes O24.419 IMMUNIZATIONS No Known Immunizations SOCIAL HISTORY Never Assessed REASON FOR VISIT Medication PLAN OF CARE VITAL SIGNS MEDICATIONS Unknown Medications RESULTS No Results PROCEDURES No Known procedures [...] History Fused L ankle 09/2017 Hospitalization History [facility]- Hyperglycemia and February 2016 Hospitalization History Ankle surgery 09/2017
--- OUTSIDE RECORDS SUMMARY | 2020-03-15 21:19 | XMS REPORT ---
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 Name Role Phone Kodi Lowery Felisha Unavailable PROBLEMS Type Condition ICD9-CM Code BSR26-UM Code Onset Dates Condition S tatus SNOMED Code Problem Prediabetes R73.09 Active 67209855 2 Problem Depression with anxiety F41.8 Active 895534071 Problem Fibromyalgia M79.7 Active 2254801 05 Problem Chronic GERD K21.9 Active 9345652 09 Problem Mixed hyperlipidemia E78.2 Active 934270877 Problem Right hip pain M25.551 Active 95979 0817044897 Problem Pain in pelvis R10.2 Active 97308 006 Problem History of gestational diabetes Z86.32 Active 952227562 Problem Gestational diabetes O24.419 Active 36247809 Problem Other chronic pain G89.29 Active 8 2578692 Problem Pain in right wrist M25.531 Active 54536011 Problem Plantar fasciitis M72.2 Active 20 9685692 Problem Left wrist pain M25.532 Active 5660 8008 Problem Post herpetic neuralgia B02.29 Active 3975424 Problem Reactive airway disease, mild persistent, uncomplicated J45.30 Active 967426577027 Problem Lumbago of lumbar region with sciatica M54.40 Active 72023162 Problem Chronic idiopathic constipation K59.09 Active 98310652 Problem Thoracic spine pain M54.6 Active 265393373 Problem Acute left ankle pain M25.572 Active 92855346431635 Problem Lumbago with sciatica, left side M54.42 Active 303498804 Problem Other elevated white blood cell (WBC) count D72.82 8 Active 332789050 Problem Absent periods N91.2 Active 31032 001 Problem Generalized anxiety disorder F41.1 A ctive 39752427 Problem Cervical pain M54.2 Active 876545 05 Problem Decreased hearing of left ear H91.92 Active 45813625 Problem Elevated blood pressure reading R03.0 Active 83976709 Problem Left hand pain M79.642 Active 78433 7710462784 Problem Prediabetes R73.03 Active 40169243 2 Problem Irregular periods N92.6 Active 80 594118 Problem Other fatigue R53.83 Active 796328 01 Problem Vitamin D deficiency E55.9 Active 96579973 Problem Menstrual cramps N94.6 Active 431 249441 Problem Excessive daytime sleepiness G47.19 A ctive 311009553427 Problem Constipation by delayed colonic transit K59.01 Active 09263524 Problem Primary insomnia F51.01 Active 397 2004 Problem Vitamin B 12 deficiency E53.8 Active 651686075 Problem GERD with esophagitis K21.0 Active 619364843 Problem Abscess, axilla L02.419 Active 1380 2001 Problem Mild persistent asthma without complication J45.30 Active 481916253 Problem Neck pain M54.2 Active 51838942 Problem Left hip pain M25.552 Active 566554 02 Problem Right anterior shoulder pain M25.511 A ctive 10426616 Problem Dislocation of temporomandibular joint, initial encounter S03.00XA Active 658796817 Problem Irritable bowel syndrome with diarrhea K58.0 Active 934081036 Problem Essential hypertension I10 Active 37625991 Problem Cigarette nicotine dependence, uncomplicated F17.2 10 Active 42522872 Problem Rosacea L71.9 Active 985957028 Problem Radiculopathy of lumbar region M54.16 Active 288737642 Problem Spinal stenosis, lumbar region without neurogeni c claudication M48.061 Active 18662357 Problem Sleep apnea in adult G47.30 Active 59234217 Problem Bipolar disorder F31.9 Active 137 91968 ALLERGIES No Information ENCOUNTERS Encounter Location Date Diagnosis [facility] [address] [place] [address] Jun, [address] [address] Jun, Dislocation of temporomandibular joint, initial encounter S03.00XA [facility] [address] [place] [address] May, Dislocation of temporomandibular joint, initial encounter S03.00XA ; Essential hypertension I10 and Intertrigo L30.[address] [address] Apr, Depression with anxiety F41.[address] [address] Apr, Primary insomnia F51.[address] [address] Apr, Lumbago of lumbar region with sciatica M 54.40 and Vitamin D deficiency E55.[address] [address] Apr, Vitamin D deficiency E55.[address] [address] Apr, Allergic contact dermatitis due to other agents L23.89 ; Bipolar disorder F31.9 ; Mixed hyperlipidemia E78.2 ; Prediabetes R73.09 ; Vitamin D deficiency E55.9 ; Depression with anxiety F41.8 ; Dizziness R42 ; Other fatigue R53.83 ; Left anterior shoulder pain M25.512 and Left lateral ankle pain M25.[address] [address] Apr, Mixed hyperlipidemia E78.[address] [address] Apr, [address] [address] Apr, Bipolar disorder F31.9 ; Fibromyalgia M7 9.7 ; Depression with anxiety F41.8 ; Lumbago of lumbar region with sciatica M54.40 and Acute left ankle pain M25.[address] [address] Mar, Constipation by delayed colonic transit K59.01 ; Mixed hyperlipidemia E78.2 ; Depression with anxiety F41.8 ; Chronic GERD K21.9 and Bipolar disorder F31.[address] [address] Feb, Abscess L02.[address] [facility] [address] Dec, Chronic GERD K21.9 and Mixed hyperlipide sourav E78.[address] [address] Nov, [address] [address] Nov, [address] [address] Oct, Abscess, axilla L02.419 and Lumbago of l umbar region with sciatica M54.[address] [address] Oct, Fall, initial encounter W19.XXXA ; Right hip pain M25.551 ; Pain in pelvis R10.2 ; Right anterior shoulder pain M25.511 ; Left hip pain M25.552 ; Neck pain M54.2 ; Depression with anxiety F41.8 and Shingles B02.[address] [address] Oct, [address] [address] Oct, Sleep apnea in adult G47.[address] [address] Sep, Mixed hyperlipidemia E78.2 ; Prediabetes R73.09 ; Vitamin D deficiency E55.9 ; Fibromyalgia M79.7 ; Chronic GERD K21.9 ; Radiculopathy of lumbar region M54.16 ; Spinal stenosis, lumbar region without neurogenic claudication M48.061 ; Vitamin B 12 deficiency E53.8 ; Depression with anxiety F41.8 ; Cervical pain M54.2 and Hospital discharge follow-up Z09 [address] [address] Sep, [address] [address] Sep, [address] [address] Sep, Post herpetic neuralgia B02.[address] [address] Sep, Mixed hyperlipidemia E78.2 ; Vitamin D [...] congestion R09.81 and GERD with esophagitis K21.[address] [address] Aug, [address] [address] Aug, Depression with anxiety F41.8 and Primar y insomnia F51.[address] [address] Aug, Chronic GERD K21.[address] [address] Aug, [address] [address] 15 Jul, 2018 Irregular periods N92.6 and Menstrual cr amps N94.[address] [address] 14 Jul, [address] [address] Jul, [address] [address] Jul, Abscess L02.[address] [address] 06 Jul, 2018 Mixed hyperlipidemia E78.2 ; Chronic ABDOUL D K21.9 and Generalized anxiety disorder F41.[address] [address] Jul, Well woman exam with routine gynecologic al exam Z01.419 ; Menstrual cramps N94.6 ; Acute left ankle pain M25.572 ; Snoring R06.83 and Excessive daytime sleepiness G47.19 [facility] [address] [place] [address] Jun, Shingles B02.[address] [address] Jun, Pruritic dermatitis L29.9 and Rosacea L7 1.[address] [address] Jun, [address] [address] Jun, [address] [address] Jun, [address] [address] Jun, Butterfly rash R21 ; Influenza vaccine n eeded Z23 ; Prediabetes R73.09 ; Mixed hyperlipidemia E78.2 and Vitamin D deficiency E55.[address] [address] Apr, Left ankle swelling M25.[address] [address] Apr, [address] [address] Apr, [address] [address] Mar, Edema of left foot R60.[address] [address] Mar, Irritable bowel syndrome with diarrhea K 58.[address] [address] Mar, [address] [address] Mar, [address] [place] [address] Mar, [facility] [address] [place] [address] Feb, Irritable bowel syndrome with diarrhea K 58.0 [facility] [address] [place] [address] Feb, [facility] [address] [place] [address] Feb, Irritable bowel syndrome with diarrhea K 58.0 [facility] [address] [place] [address] Feb, control counseling Z30.09 ; Lumbag o with sciatica, left side M54.42 and Chronic GERD K21.[address] [address] Feb, [address] [address] Feb, [address] [address] Feb, [address] [address] Feb, Diarrhea, unspecified type R19.[address] [address] Feb, Abnormal glucose R73.[address] [address] Feb, Abnormal glucose R73.[address] [address] Feb, Reactive airway disease, mild persistent , uncomplicated J45.[address] [address] Feb, Lumbago with sciatica, left side M54.42 ; Cigarette nicotine dependence, uncomplicated F17.210 ; Diarrhea, unspecified type R19.7 and Abnormal glucose R73.[address] [address] January, [address] [place] [address] January, [address] [address] January, [address] [address] January, [address] [address] January, Muscle strain of chest wall, initial enc ounter S29.011A ; Physical exam Z00.00 ; Need for hepatitis vaccination Z23 and Abscess L02.[address] [address] Dec, Left hand pain M79.642 ; Thoracic spine pain M54.6 ; Cervical pain M54.2 and Elevated blood pressure reading R03.[address] [address] Dec, Lumbago with sciatica, left side M54.42 and Decreased hearing of left ear H91.[address] [address] Dec, Other chest pain R07.89 ; Finger pain, l eft M79.645 ; Chronic GERD K21.9 and Muscle strain of chest wall, initial encounter S29.011A [address] [address] Dec, [address] [address] Dec, Other constipation K59.09 ; Irregular pe riods N92.6 and Absent periods N91.[address] [address] Oct, [address] [address] Oct, Weight gain R63.[address] [address] Oct, Generalized anxiety disorder F41.[address] [address] Sep, [address] [address] Sep, Absent periods N91.2 and Decreased heari ng of left ear H91.[address] [address] Sep, [address] [address] Sep, Pre-op exam Z01.818 and Abscess of chest wall L02.[address] [address] Sep, [address] [address] Sep, Prediabetes R73.09 ; Vitamin D deficienc y E55.9 ; Mixed hyperlipidemia E78.2 and Arthritis of ankle, left M19.[address] [address] Sep, Smoking trying to quit Z72.0 ; Chronic G ERD K21.9 ; Generalized anxiety disorder F41.1 ; Other chest pain R07.89 ; Other constipation K59.09 and Right upper quadrant pain R10.[address] [address] Aug, [address] [address] Aug, Other chronic pain G89.[address] [address] Aug, Mixed hyperlipidemia E78.2 ; Fibromyalgi a M79.7 ; Lumbago of lumbar region with sciatica M54.40 ; History of gestational diabetes Z86.32 ; Prediabetes R73.09 ; Vitamin D deficiency E55.9 ; Weight gain R63.5 ; control counseling Z30.09 ; Pain, dental K08.89 and Flank pain R10.[address] [address] Aug, [address] [place] [address] Jun, Acute left ankle pain M25.572 [facility] [address] [place] [address] Jun, [facility] [address] [place] [address] Jun, [facility] [address] [place] [address] Jun, Acute left ankle pain M25.572 [facility] [address] [place] [address] Jun, [facility] [address] [place] [address] Jun, Acute left ankle pain M25.572 [facility] [address] [place] [address] Jun, Influenza vaccine needed Z23 and Irregul ar periods N92.6 [facility] [address] [place] [address] May, Mixed hyperlipidemia E78.2 [facility] [address] [place] [address] May, [facility] [address] [place] [address] May, Chronic GERD K21.9 [facility] [address] [place] [address] Apr, Weight gain R63.5 [facility] [address] [place] [address] Apr, Chronic GERD K21.9 and Weight gain R63.5 [facility] [address] [place] [address] Mar, Depression with anxiety F41.8 and Chroni c idiopathic constipation K59.09 [facility] [address] [place] [address] Mar, Other chronic pain G89.29 [facility] [address] [place] [address] Mar, Post herpetic neuralgia B02.[address] [address] Mar, Post herpetic neuralgia B02.[address] [address] Mar, [address] [address] Mar, Other elevated white blood cell (WBC) co unt D72.[address] [address] Mar, Other elevated white blood cell (WBC) co unt D72.828 and Dyslipidemia E78.[address] [address] Feb, [address] [address] Feb, Vitamin D deficiency E55.9 ; Dyslipidemi a E78.5 ; Other elevated white blood cell (WBC) count D72.828 and Skin tag L91.[address] [address] Feb, [address] [address] Feb, Vitamin D deficiency E55.9 and Dyslipide sourav E78.[address] [address] Feb, [address] [address] Feb, Post herpetic neuralgia B02.29 ; Thyroid disorder screen Z13.29 ; Mixed hyperlipidemia E78.2 ; Chronic GERD K21.9 ; Lumbago of lumbar region with sciatica M54.40 ; Prediabetes R73.03 ; Other fatigue R53.83 ; Vitamin D deficiency E55.9 and Vitamin B 12 deficiency E53.[address] [address] Feb, Reactive airway disease, mild persistent , uncomplicated J45.[address] [place] [address] Feb, Chronic GERD K21.9 [facility] [address] [place] [address] Feb, Mixed hyperlipidemia E78.2 and Other chr onic pain G89.29 [facility] [address] [place] [address] Feb, Lumbago with sciatica, left side M54.42 ; Mixed hyperlipidemia E78.2 and Reactive airway disease, mild persistent, uncomplicated J45.30 [facility] [address] [place] [address] Feb, Chronic GERD K21.9 [facility] [address] [place] [address] Feb, [facility] [address] [place] [address] Feb, [facility] [address] [place] [address] Feb, Post herpetic neuralgia B02.29 [facility] [address] [place] [address] Feb, Allergic contact dermatitis due to other agents L23.89 and Post herpetic neuralgia B02.29 [facility] [address] [place] [address] Feb, Chronic GERD K21.9 [facility] [address] [place] [address] Feb, Chronic GERD K21.9 [facility] [address] [place] [address] January, Post herpetic neuralgia B02.29 [facility] [address] [place] [address] January, Lumbago with sciatica, left side M54.42 [facility] [address] [place] [address] January, [facility] [address] [place] [address] January, Lumbago of lumbar region with sciatica M 54.40 [facility] [address] [place] [address] January, Other chronic pain G89.29 and Lumbago wi th sciatica, left side M54.42 [facility] [address] [place] [address] January, Depression with anxiety F41.8 [facility] [address] [place] [address] January, Mixed hyperlipidemia E78.2 [facility] [address] [place] [address] January, Abscess of left groin L02.[address] [address] Dec, Depression with anxiety F41.[address] [address] [address] Dec, Irregular periods N92.6 [facility] [address] [place] [address] Nov, Left wrist pain M25.532 and Acute left a nkle pain M25.[address] [address] Nov, Post herpetic neuralgia B02.29 and Absce ss of left groin L02.214 [facility] [address] [place] [address] Sep, Irregular periods N92.6 [facility] [address] [place] [address] Sep, Mixed hyperlipidemia E78.2 ; Flank pain R10.9 and Post herpetic neuralgia B02.[address] [address] Aug, Lumbago of lumbar region with sciatica M 54.40 ; Chronic idiopathic constipation K59.09 ; Depression with anxiety F41.8 and Mixed hyperlipidemia E78.2 [facility] [address] [place] [address] Aug, Other chronic pain G89.29 [facility] [address] [place] [address] Aug, Reactive airway disease, mild persistent , uncomplicated J45.[address] [address] Aug, [address] [address] Aug, Cough R05 and Allergic contact dermatiti s due to other agents L23.[address] [address] Aug, [address] [address] Jul, Other chronic pain G89.[address] [address] Jul, Upper respiratory tract infection, unspe cified type J06.9 ; Chronic GERD K21.9 ; Acute left ankle pain M25.572 and Lumbago of lumbar region with sciatica M54.[address] [address] Jun, Other chronic pain G89.[address] [address] Jun, [address] [address] Jun, [address] [address] Jun, Chronic GERD K21.[address] [address] Jun, [address] [address] May, Pain in right wrist M25.531 ; Left wrist pain M25.532 ; Acute left ankle pain M25.572 ; Thoracic spine pain M54.6 ; Lumbago with sciatica, left side M54.42 ; Other chronic pain G89.29 and Dysuria R30.[address] [address] 29 May, 2016 Chronic GERD K21.9 [facility] [address] [place] [address] 23 May, 2016 Chronic GERD K21.9 [facility] [address] [place] [address] 22 May, 2016 [facility] [address] [place] [address] 19 May, 2016 [facility] [address] [place] [address] 16 May, 2016 [facility] [address] [place] [address] 16 May, 2016 [facility] [address] [place] [address] 16 May, 2016 Mixed hyperlipidemia E78.2 ; Fibromyalgi a M79.7 ; Depression with anxiety F41.8 ; Lumbago of lumbar region with sciatica M54.40 ; Encounter to establish care Z76.89 ; Chronic GERD K21.9 ; History of gestational diabetes Z86.32 ; Chronic idiopathic constipation K59.09 ; Thyroid disorder screen Z13.29 and Need for influenza vaccination Z23 [facility] [address] [place] [address] Apr, Gestational diabetes O24.419 [facility] [address] [place] [address] Feb, Gestational diabetes O24.419 IMMUNIZATIONS No Known Immunizations SOCIAL HISTORY Never Assessed REASON FOR VISIT Needs to see Felisha PLAN OF CARE VITAL SIGNS MEDICATIONS Unknown [...] History Fused L ankle 09/2017 Hospitalization History - Hyperglycemia and February 2016 Hospitalization History Ankle surgery 09/2017
--- OUTSIDE RECORDS SUMMARY | 2020-03-15 21:19 | XMS REPORT ---
Author Author Solange Sultana [facility] Address [address] [place], [place] [id number] Care Team Providers Care Upkeep Mechanic Name Role Phone Kodi Lowery Felisha Unavailable PROBLEMS Type Condition ICD9-CM Code STB86-HR Code Onset Dates Condition S tatus SNOMED Code Problem Prediabetes R73.09 Active 86233997 2 Problem Depression with anxiety F41.8 Active 382682347 Problem Fibromyalgia M79.7 Active 4036950 05 Problem Chronic GERD K21.9 Active 9462621 09 Problem Mixed hyperlipidemia E78.2 Active 557158651 Problem Right hip pain M25.551 Active 10250 7684966555 Problem Pain in pelvis R10.2 Active 72120 006 Problem History of gestational diabetes Z86.32 Active 240362004 Problem Gestational diabetes O24.419 Active 34031237 Problem Other chronic pain G89.29 Active 8 2979884 Problem Pain in right wrist M25.531 Active 93462909 Problem Plantar fasciitis M72.2 Active 20 4138783 Problem Left wrist pain M25.532 Active 5660 8008 Problem Post herpetic neuralgia B02.29 Active 3805952 Problem Reactive airway disease, mild persistent, uncomplicated J45.30 Active 691659777751 Problem Lumbago of lumbar region with sciatica M54.40 Active 10442830 Problem Chronic idiopathic constipation K59.09 Active 36530189 Problem Thoracic spine pain M54.6 Active 872742030 Problem Acute left ankle pain M25.572 Active 83495640073698 Problem Lumbago with sciatica, left side M54.42 Active 790688413 Problem Other elevated white blood cell (WBC) count D72.82 8 Active 411844030 Problem Absent periods N91.2 Active 43092 001 Problem Generalized anxiety disorder F41.1 A ctive 23512920 Problem Cervical pain M54.2 Active 873391 05 Problem Decreased hearing of left ear H91.92 Active 27588621 Problem Elevated blood pressure reading R03.0 Active 16034518 Problem Left hand pain M79.642 Active 78337 6929529797 Problem Prediabetes R73.03 Active 83308895 2 Problem Irregular periods N92.6 Active 80 632563 Problem Other fatigue R53.83 Active 248882 01 Problem Vitamin D deficiency E55.9 Active 85046815 Problem Menstrual cramps N94.6 Active 431 848245 Problem Excessive daytime sleepiness G47.19 A ctive 475507036577 Problem Constipation by delayed colonic transit K59.01 Active 41230378 Problem Primary insomnia F51.01 Active 397 2004 Problem Vitamin B 12 deficiency E53.8 Active 987358609 Problem GERD with esophagitis K21.0 Active 017646329 Problem Abscess, axilla L02.419 Active 1380 2001 Problem Mild persistent asthma without complication J45.30 Active 522508652 Problem Neck pain M54.2 Active 12708495 Problem Left hip pain M25.552 Active 262080 02 Problem Right anterior shoulder pain M25.511 A ctive 19835961 Problem Dislocation of temporomandibular joint, initial encounter S03.00XA Active 603513669 Problem Irritable bowel syndrome with diarrhea K58.0 Active 479260444 Problem Essential hypertension I10 Active 90289103 Problem Cigarette nicotine dependence, uncomplicated F17.2 10 Active 32560903 Problem Rosacea L71.9 Active 763333056 Problem Radiculopathy of lumbar region M54.16 Active 947501811 Problem Spinal stenosis, lumbar region without neurogeni c claudication M48.061 Active 21817630 Problem Sleep apnea in adult G47.30 Active 54957170 Problem Bipolar disorder F31.9 Active 137 40665 ALLERGIES No Information ENCOUNTERS Encounter Location Date Diagnosis [facility] [address] [place] [address] Jun, Lumbago of lumbar region with sciatica M 54.40 and Chronic GERD K21.9 [facility] [address] [place] [address] Jun, [address] [address] Jun, Dislocation of temporomandibular joint, initial encounter S03.00XA [address] [address] May, Dislocation of temporomandibular joint, initial encounter S03.00XA ; Essential hypertension I10 and Intertrigo L30.[address] [address] Apr, Depression with anxiety F41.[address] [address] Apr, Primary insomnia F51.[address] [address] Apr, Lumbago of lumbar region with sciatica M 54.40 and Vitamin D deficiency E55.[address] [address] Apr, Vitamin D deficiency E55.[address] [address] Apr, Allergic contact dermatitis due to other agents L23.89 ; Bipolar disorder F31.9 ; Mixed hyperlipidemia E78.2 ; Prediabetes R73.09 ; Vitamin D deficiency E55.9 ; Depression with anxiety F41.8 ; Dizziness R42 ; Other fatigue R53.83 ; Left anterior shoulder pain M25.512 and Left lateral ankle pain M25.[address] [address] Apr, Mixed hyperlipidemia E78.[address] [address] Apr, [address] [address] Apr, Bipolar disorder F31.9 ; Fibromyalgia M7 9.7 ; Depression with anxiety F41.8 ; Lumbago of lumbar region with sciatica M54.40 and Acute left ankle pain M25.[address] [address] Mar, Constipation by delayed colonic transit K59.01 ; Mixed hyperlipidemia E78.2 ; Depression with anxiety F41.8 ; Chronic GERD K21.9 and Bipolar disorder F31.[address] [address] Feb, Abscess L02.[address] [address] Dec, Chronic GERD K21.9 and Mixed hyperlipide sourav E78.[address] [address] Nov, [address] [address] Nov, [address] [address] Oct, Abscess, axilla L02.419 and Lumbago of l umbar region with sciatica M54.[address] [address] Oct, Fall, initial encounter W19.XXXA ; Right hip pain M25.551 ; Pain in pelvis R10.2 ; Right anterior shoulder pain M25.511 ; Left hip pain M25.552 ; Neck pain M54.2 ; Depression with anxiety F41.8 and Shingles B02.[address] [address] Oct, [address] [address] Oct, Sleep apnea in adult G47.[address] [address] Sep, Mixed hyperlipidemia E78.2 ; Prediabetes R73.09 ; Vitamin D deficiency E55.9 ; Fibromyalgia M79.7 ; Chronic GERD K21.9 ; Radiculopathy of lumbar region M54.16 ; Spinal stenosis, lumbar region without neurogenic claudication M48.061 ; Vitamin B 12 deficiency E53.8 ; Depression with anxiety F41.8 ; Cervical pain M54.2 and Hospital discharge follow-up Z09 [address] [address] Sep, [address] [place] [address] Sep, [address] [address] Sep, Post herpetic neuralgia B02.[address] [address] Sep, Mixed hyperlipidemia E78.2 ; Vitamin D [...] congestion R09.81 and GERD with esophagitis K21.[address] [address] Aug, [address] [address] Aug, Depression with anxiety F41.8 and Primar y insomnia F51.[address] [address] Aug, Chronic GERD K21.[address] [address] Aug, [address] [address] 15 Jul, 2018 Irregular periods N92.6 and Menstrual cr amps N94.[address] [address] Jul, [address] [address] Jul, [address] [address] Jul, Abscess L02.[address] [address] Jul, Mixed hyperlipidemia E78.2 ; Chronic ABDOUL D K21.9 and Generalized anxiety disorder F41.[address] [address] Jul, Well woman exam with routine gynecologic al exam Z01.419 ; Menstrual cramps N94.6 ; Acute left ankle pain M25.572 ; Snoring R06.83 and Excessive daytime sleepiness G47.[address] [address] Jun, Shingles B02.[address] [address] Jun, Pruritic dermatitis L29.9 and Rosacea L7 1.[address] [address] Jun, [address] [address] Jun, [address] [address] Jun, [address] [address] Jun, Butterfly rash R21 ; Influenza vaccine n eeded Z23 ; Prediabetes R73.09 ; Mixed hyperlipidemia E78.2 and Vitamin D deficiency E55.[address] [address] Apr, Left ankle swelling M25.[address] [address] Apr, [address] [address] Apr, [address] [address] Mar, Edema of left foot R60.[address] [address] Mar, Irritable bowel syndrome with diarrhea K 58.[address] [address] Mar, [facility] [address] [place] [address] Mar, [facility] [address] [place] [address] Mar, [facility] [address] [place] [address] Feb, Irritable bowel syndrome with diarrhea K 58.0 [facility] [address] [place] [address] Feb, [facility] [address] [place] [address] Feb, Irritable bowel syndrome with diarrhea K 58.0 [facility] [address] [place] [address] Feb, control counseling Z30.09 ; Lumbag o with sciatica, left side M54.42 and Chronic GERD K21.9 [facility] [address] [place] [address] Feb, [facility] [address] [place] [address] Feb, [facility] [address] [place] [address] Feb, [facility] [address] [place] [address] Feb, Diarrhea, unspecified type R19.7 [facility] [address] [place] [address] Feb, Abnormal glucose R73.09 [facility] [address] [place] [address] Feb, Abnormal glucose R73.09 [facility] [address] [place] [address] 05 Feb, 2018 Reactive airway disease, mild persistent , uncomplicated J45.30 [facility] [address] [place] [address] 04 Feb, 2018 Lumbago with sciatica, left side M54.42 ; Cigarette nicotine dependence, uncomplicated F17.210 ; Diarrhea, unspecified type R19.7 and Abnormal glucose R73.[address] [address] January, [address] [address] January, [address] [address] January, [address] [address] January, [address] [address] January, Muscle strain of chest wall, initial enc ounter S29.011A ; Physical exam Z00.00 ; Need for hepatitis vaccination Z23 and Abscess L02.[address] [address] Dec, Left hand pain M79.642 ; Thoracic spine pain M54.6 ; Cervical pain M54.2 and Elevated blood pressure reading R03.[address] [address] Dec, Lumbago with sciatica, left side M54.42 and Decreased hearing of left ear H91.[address] [address] Dec, Other chest pain R07.89 ; Finger pain, l eft M79.645 ; Chronic GERD K21.9 and Muscle strain of chest wall, initial encounter S29.011A [address] [address] Dec, [address] [address] Dec, Other constipation K59.09 ; Irregular pe riods N92.6 and Absent periods N91.[address] [address] Oct, [address] [address] Oct, Weight gain R63.[address] [address] Oct, Generalized anxiety disorder F41.[address] [address] Sep, [address] [address] Sep, Absent periods N91.2 and Decreased heari ng of left ear H91.[address] [address] Sep, [address] [address] Sep, Pre-op exam Z01.818 and Abscess of chest wall L02.[address] [address] Sep, [address] [address] Sep, Prediabetes R73.09 ; Vitamin D deficienc y E55.9 ; Mixed hyperlipidemia E78.2 and Arthritis of ankle, left M19.[address] [address] Sep, Smoking trying to quit Z72.0 ; Chronic G ERD K21.9 ; Generalized anxiety disorder F41.1 ; Other chest pain R07.89 ; Other constipation K59.09 and Right upper quadrant pain R10.[address] [address] Aug, [address] [address] Aug, Other chronic pain G89.[address] [address] Aug, Mixed hyperlipidemia E78.2 ; Fibromyalgi a M79.7 ; Lumbago of lumbar region with sciatica M54.40 ; History of gestational diabetes Z86.32 ; Prediabetes R73.09 ; Vitamin D deficiency E55.9 ; Weight gain R63.5 ; control counseling Z30.09 ; Pain, dental K08.89 and Flank pain R10.9 [facility] [address] [place] [address] Aug, [facility] [address] [place] [address] Jun, Acute left ankle pain M25.572 [facility] [address] [place] [address] Jun, [facility] [address] [place] [address] Jun, [facility] [address] [place] [address] Jun, Acute left ankle pain M25.572 [facility] [address] [place] [address] Jun, [facility] [address] [place] [address] Jun, Acute left ankle pain M25.572 [facility] [address] [place] [address] Jun, Influenza vaccine needed Z23 and Irregul ar periods N92.6 [facility] [address] [place] [address] May, Mixed hyperlipidemia E78.2 [facility] [address] [place] [address] May, [facility] [address] [place] [address] May, Chronic GERD K21.9 [facility] [address] [place] [address] Apr, Weight gain R63.5 [facility] [address] [place] [address] Apr, Chronic GERD K21.9 and Weight gain R63.5 [facility] [address] [place] [address] Mar, Depression with anxiety F41.8 and Chroni c idiopathic constipation K59.09 [facility] [address] [place] [address] Mar, Other chronic pain G89.[address] [address] Mar, Post herpetic neuralgia B02.[address] [address] Mar, Post herpetic neuralgia B02.[address] [address] Mar, [address] [address] Mar, Other elevated white blood cell (WBC) co unt D72.[address] [address] Mar, Other elevated white blood cell (WBC) co unt D72.828 and Dyslipidemia E78.[address] [address] Feb, [address] [address] Feb, Vitamin D deficiency E55.9 ; Dyslipidemi a E78.5 ; Other elevated white blood cell (WBC) count D72.828 and Skin tag L91.[address] [address] Feb, [address] [address] Feb, Vitamin D deficiency E55.9 and Dyslipide sourav E78.[address] [address] Feb, [address] [address] Feb, Post herpetic neuralgia B02.29 ; Thyroid disorder screen Z13.29 ; Mixed hyperlipidemia E78.2 ; Chronic GERD K21.9 ; Lumbago of lumbar region with sciatica M54.40 ; Prediabetes R73.03 ; Other fatigue R53.83 ; Vitamin D deficiency E55.9 and Vitamin B 12 deficiency E53.8 [facility] [address] [place] [address] 23 Feb, 2017 Reactive airway disease, mild persistent , uncomplicated J45.30 [facility] [address] [place] [address] 23 Feb, 2017 Chronic GERD K21.9 [facility] [address] [place] [address] 23 Feb, 2017 Mixed hyperlipidemia E78.2 and Other chr onic pain G89.29 [facility] [address] [place] [address] Feb, Lumbago with sciatica, left side M54.42 ; Mixed hyperlipidemia E78.2 and Reactive airway disease, mild persistent, uncomplicated J45.30 [facility] [address] [place] [address] 20 Feb, 2017 Chronic GERD K21.9 [facility] [address] [place] [address] 19 Feb, 2017 [facility] [address] [place] [address] 19 Feb, 2017 [facility] [address] [place] [address] 16 Feb, 2017 Post herpetic neuralgia B02.[address] [address] 16 Feb, 2017 Allergic contact dermatitis due to other agents L23.89 and Post herpetic neuralgia B02.29 [facility] [address] [place] [address] 16 Feb, 2017 Chronic GERD K21.9 [facility] [address] [place] [address] 13 Feb, 2017 Chronic GERD K21.9 [facility] [address] [place] [address] January, Post herpetic neuralgia B02.29 [facility] [address] [place] [address] January, Lumbago with sciatica, left side M54.42 [facility] [address] [place] [address] January, [facility] [address] [place] [address] January, Lumbago of lumbar region with sciatica M 54.40 [facility] [address] [place] [address] January, Other chronic pain G89.29 and Lumbago wi th sciatica, left side M54.42 [facility] [address] [place] [address] January, Depression with anxiety F41.8 [facility] [address] [place] [address] January, Mixed hyperlipidemia E78.[address] [address] January, Abscess of left groin L02.[address] [address] Dec, Depression with anxiety F41.8 [facility] [address] [place] [address] Dec, Irregular periods N92.[address] [address] Nov, Left wrist pain M25.532 and Acute left a nkle pain M25.[address] [address] Nov, Post herpetic neuralgia B02.29 and Absce ss of left groin L02.214 [facility] [address] [place] [address] Sep, Irregular periods N92.[address] [address] Sep, Mixed hyperlipidemia E78.2 ; Flank pain R10.9 and Post herpetic neuralgia B02.29 [facility] [address] [place] [address] Aug, Lumbago of lumbar region with sciatica M 54.40 ; Chronic idiopathic constipation K59.09 ; Depression with anxiety F41.8 and Mixed hyperlipidemia E78.[address] [address] Aug, Other chronic pain G89.[address] [address] Aug, Reactive airway disease, mild persistent , uncomplicated J45.[address] [address] Aug, [address] [address] Aug, Cough R05 and Allergic contact dermatiti s due to other agents L23.[address] [address] Aug, [address] [address] Jul, Other chronic pain G89.[address] [address] Jul, Upper respiratory tract infection, unspe cified type J06.9 ; Chronic GERD K21.9 ; Acute left ankle pain M25.572 and Lumbago of lumbar region with sciatica M54.[address] [address] Jun, Other chronic pain G89.[address] [address] Jun, [address] [address] Jun, [address] [address] Jun, Chronic GERD K21.[address] [address] Jun, [address] [address] May, Pain in right wrist M25.531 ; Left wrist pain M25.532 ; Acute left ankle pain M25.572 ; Thoracic spine pain M54.6 ; Lumbago with sciatica, left side M54.42 ; Other chronic pain G89.29 and Dysuria R30.0 [facility] [address] [place] [address] May, Chronic GERD K21.9 [facility] [address] [place] [address] May, Chronic GERD K21.9 [facility] [address] [place] [address] May, [facility] [address] [place] [address] May, [address] [address] May, [facility] [address] [place] [address] May, [address] [address] May, Mixed hyperlipidemia E78.2 ; Fibromyalgi a M79.7 ; Depression with anxiety F41.8 ; Lumbago of lumbar region with sciatica M54.40 ; Encounter to establish care Z76.89 ; Chronic GERD K21.9 ; History of gestational diabetes Z86.32 ; Chronic idiopathic constipation K59.09 ; Thyroid disorder screen Z13.29 and Need for influenza vaccination Z23 [facility] [address] [place] [address] Apr, Gestational diabetes O24.419 [facility] [address] [place] [address] Feb, Gestational diabetes O24.419 IMMUNIZATIONS No Known Immunizations SOCIAL HISTORY Never Assessed REASON FOR VISIT refill PLAN OF CARE VITAL SIGNS MEDICATIONS Medication Instructions Dosage Frequency Start Date End Date Duration S tatus Quetiapine Fumarate 25 MG Orally Once a day 2 tablets at bedtime 24 h Aug, 30 day(s) Active Methocarbamol 500 MG Orally four times daily 2 tablets 01 Oc t2018 30 day(s) Active Hydrochlorothiazide 12.5 MG Orally Once a day 1 tablet 24h 23 S 2018 30 day(s) Active Ventolin HFA 108 (90 Base) MCG/ACT Inhalation every 4 hrs 2 puffs a s needed 4h Aug, 30 days Active Colace 100 MG Orally Once a day 1 capsule as needed 24h 30 Active Cyclobenzaprine HCl 10 MG TAKE 1 TABLET BY MOUTH THREE (3) T IMES DAILY 10 Active Mobic 15 MG Orally Once a day 1 tablet 24h Jul, 90 d ays Active Ondansetron 4 MG Orally every 4 hrs 1 tablet on the tong ue and allow to dissolve as needed 4h Active Lamotrigine 25 MG Orally twice daily 1 tablet Mar, 30 day(s) Active Dexilant 60 MG Orally Once a day 1 capsule 24h Sep, 30 day(s) Active Pantoprazole Sodium 20 MG Orally twice daily 1 tablet 15 Oc , 2018 30 day(s) Active Nystatin 593839 UNIT/GM Externally Twice a day 1 application to affected area 12h May, 30 days Active Pantoprazole Sodium 40 MG Orally BID 1 tablet 12h Jul, 30 days Active Pravastatin Sodium 20 MG TAKE 1 TABLET BY MOUTH ONCE DAILY A T BEDTIME 90 Active Bactrim DS 800-160 MG Orally Twice a day 1 tablet 12h Feb, 10 day(s) Active Triamcinolone Acetonide 0.1 % Externally Twice a day 1 appli cation to affected area 12h Apr, 10 days Active Gabapentin 800 MG Orally QID 1 tablet 6h Ac tive Dicyclomine HCl 20 MG Orally Four times a day 1 tablet 6h 30 day(s) Active Esomeprazole Magnesium 40 MG Orally Once a day in the morning 1 cap celeste Mar, 30 day(s) Active Nortriptyline HCl 25 MG Orally QHS 1 capsule 30 Active Sertraline HCl 100 MG Orally Once a day 2 tablet 24h 30 days Active Multivitamin Adult - Act nancy Tramadol HCl 50 MG Orally Three times [...] History Fused L ankle 09/[address] [facility]- Hyperglycemia and February 2016 Hospitalization History Ankle surgery 09/2017
--- OUTSIDE RECORDS SUMMARY | 2020-03-15 21:19 | XMS REPORT ---
Author Author Solange Sultana [facility] Address [address] [place], [place] [id number] Care Team Providers Care Statistics Professor Name Role Phone Kodi Lowery Felisha Unavailable PROBLEMS Type Condition ICD9-CM Code NUB08-FT Code Onset Dates Condition S tatus SNOMED Code Problem Prediabetes R73.09 Active 14478494 2 Problem Depression with anxiety F41.8 Active 099900579 Problem Fibromyalgia M79.7 Active 2688970 05 Problem Chronic GERD K21.9 Active 0706733 09 Problem Mixed hyperlipidemia E78.2 Active 913650253 Problem Right hip pain M25.551 Active 84999 0171990965 Problem Pain in pelvis R10.2 Active 32694 006 Problem History of gestational diabetes Z86.32 Active 625923695 Problem Gestational diabetes O24.419 Active 47448141 Problem Other chronic pain G89.29 Active 8 8389167 Problem Pain in right wrist M25.531 Active 26702301 Problem Plantar fasciitis M72.2 Active 20 9009905 Problem Left wrist pain M25.532 Active 5660 8008 Problem Post herpetic neuralgia B02.29 Active 8894170 Problem Reactive airway disease, mild persistent, uncomplicated J45.30 Active 696205570710 Problem Lumbago of lumbar region with sciatica M54.40 Active 44722971 Problem Chronic idiopathic constipation K59.09 Active 10697876 Problem Thoracic spine pain M54.6 Active 418253524 Problem Acute left ankle pain M25.572 Active 85349353839003 Problem Lumbago with sciatica, left side M54.42 Active 019274771 Problem Other elevated white blood cell (WBC) count D72.82 8 Active 790430134 Problem Absent periods N91.2 Active 95213 001 Problem Generalized anxiety disorder F41.1 A ctive 10142141 Problem Cervical pain M54.2 Active 953876 05 Problem Decreased hearing of left ear H91.92 Active 21316216 Problem Elevated blood pressure reading R03.0 Active 04082570 Problem Left hand pain M79.642 Active 88812 2492022115 Problem Prediabetes R73.03 Active 91964932 2 Problem Irregular periods N92.6 Active 80 872629 Problem Other fatigue R53.83 Active 468647 01 Problem Vitamin D deficiency E55.9 Active 41736166 Problem Menstrual cramps N94.6 Active 431 427649 Problem Excessive daytime sleepiness G47.19 A ctive 818878297596 Problem Constipation by delayed colonic transit K59.01 Active 82562443 Problem Primary insomnia F51.01 Active 397 2004 Problem Vitamin B 12 deficiency E53.8 Active 549210538 Problem GERD with esophagitis K21.0 Active 537841832 Problem Abscess, axilla L02.419 Active 1380 2001 Problem Mild persistent asthma without complication J45.30 Active 298518525 Problem Neck pain M54.2 Active 46106592 Problem Left hip pain M25.552 Active 263397 02 Problem Right anterior shoulder pain M25.511 A ctive 67176774 Problem Dislocation of temporomandibular joint, initial encounter S03.00XA Active 731859770 Problem Irritable bowel syndrome with diarrhea K58.0 Active 051464541 Problem Essential hypertension I10 Active 79519253 Problem Cigarette nicotine dependence, uncomplicated F17.2 10 Active 61354303 Problem Rosacea L71.9 Active 170791786 Problem Radiculopathy of lumbar region M54.16 Active 315886792 Problem Spinal stenosis, lumbar region without neurogeni c claudication M48.061 Active 28971276 Problem Sleep apnea in adult G47.30 Active 66188137 Problem Bipolar disorder F31.9 Active 137 55916 ALLERGIES No Information ENCOUNTERS Encounter Location Date Diagnosis [address] [address] Jun, Folliculitis L73.[address] [address] Jun, Pre-op evaluation Z01.[address] [address] Jun, Folliculitis L73.[address] [address] Jun, Pre-op evaluation Z01.[address] [address] Jun, Lumbago of lumbar region with sciatica M 54.40 and Chronic GERD K21.[address] [address] Jun, [address] [address] Jun, Dislocation of temporomandibular joint, initial encounter S03.00XA [address] [address] May, Dislocation of temporomandibular joint, initial encounter S03.00XA ; Essential hypertension I10 and Intertrigo L30.[address] [address] Apr, Depression with anxiety F41.[address] [address] Apr, Primary insomnia F51.[address] [address] Apr, Lumbago of lumbar region with sciatica M 54.40 and Vitamin D deficiency E55.[address] [address] Apr, Vitamin D deficiency E55.[address] [address] Apr, Allergic contact dermatitis due to other agents L23.89 ; Bipolar disorder F31.9 ; Mixed hyperlipidemia E78.2 ; Prediabetes R73.09 ; Vitamin D deficiency E55.9 ; Depression with anxiety F41.8 ; Dizziness R42 ; Other fatigue R53.83 ; Left anterior shoulder pain M25.512 and Left lateral ankle pain M25.[address] [address] Apr, Mixed hyperlipidemia E78.[address] [address] Apr, [address] [address] Apr, Bipolar disorder F31.9 ; Fibromyalgia M7 9.7 ; Depression with anxiety F41.8 ; Lumbago of lumbar region with sciatica M54.40 and Acute left ankle pain M25.[address] [address] Mar, Constipation by delayed colonic transit K59.01 ; Mixed hyperlipidemia E78.2 ; Depression with anxiety F41.8 ; Chronic GERD K21.9 and Bipolar disorder F31.[address] [address] Feb, Abscess L02.[address] [address] Dec, Chronic GERD K21.9 and Mixed hyperlipide sourav E78.[address] [address] Nov, [address] [address] Nov, [address] [address] Oct, Abscess, axilla L02.419 and Lumbago of l umbar region with sciatica M54.[address] [address] Oct, Fall, initial encounter W19.XXXA ; Right hip pain M25.551 ; Pain in pelvis R10.2 ; Right anterior shoulder pain M25.511 ; Left hip pain M25.552 ; Neck pain M54.2 ; Depression with anxiety F41.8 and Shingles B02.[address] [address] Oct, [address] [address] Oct, Sleep apnea in adult G47.[address] [address] Sep, Mixed hyperlipidemia E78.2 ; Prediabetes R73.09 ; Vitamin D deficiency E55.9 ; Fibromyalgia M79.7 ; Chronic GERD K21.9 ; Radiculopathy of lumbar region M54.16 ; Spinal stenosis, lumbar region without neurogenic claudication M48.061 ; Vitamin B 12 deficiency E53.8 ; Depression with anxiety F41.8 ; Cervical pain M54.2 and Hospital discharge follow-up Z09 [address] [address] Sep, [address] [address] Sep, [address] [address] Sep, Post herpetic neuralgia B02.[address] [address] Sep, Mixed hyperlipidemia E78.2 ; Vitamin D [...] congestion R09.81 and GERD with esophagitis K21.[address] [address] Aug, [address] [address] Aug, Depression with anxiety F41.8 and Primar y insomnia F51.[address] [address] Aug, Chronic GERD K21.[address] [address] Aug, [address] [place] [address] 15 Jul, 2018 Irregular periods N92.6 and Menstrual cr amps N94.[address] [address] 14 Jul, 2018 [facility] [address] [place] [address] 14 Jul, [address] [address] Jul, Abscess L02.[address] [address] Jul, Mixed hyperlipidemia E78.2 ; Chronic ABDOUL D K21.9 and Generalized anxiety disorder F41.[address] [address] Jul, Well woman exam with routine gynecologic al exam Z01.419 ; Menstrual cramps N94.6 ; Acute left ankle pain M25.572 ; Snoring R06.83 and Excessive daytime sleepiness G47.[address] [address] Jun, Shingles B02.[address] [address] Jun, Pruritic dermatitis L29.9 and Rosacea L7 1.[address] [address] Jun, [address] [address] Jun, [address] [address] Jun, [address] [address] Jun, Butterfly rash R21 ; Influenza vaccine n eeded Z23 ; Prediabetes R73.09 ; Mixed hyperlipidemia E78.2 and Vitamin D deficiency E55.[address] [address] Apr, Left ankle swelling M25.472 [facility] [address] [place] [facility] [place] [address] Apr, [facility] [address] [place] [facility] [place] [address] Apr, [facility] [address] [place] [facility] [place] [address] Mar, Edema of left foot R60.0 [facility] [address] [place] [address] Mar, Irritable bowel syndrome with diarrhea K 58.0 [facility] [address] [place] [facility] [place] [address] Mar, [facility] [address] [place] [place] [address] Mar, [facility] [address] [place] [facility] [place] [address] Mar, [facility] [address] [place] [place] [address] Feb, Irritable bowel syndrome with diarrhea K 58.0 [facility] [address] [place] [address] Feb, [facility] [address] [place] [address] Feb, Irritable bowel syndrome with diarrhea K 58.0 [facility] [address] [place] [address] Feb, control counseling Z30.09 ; Lumbag o with sciatica, left side M54.42 and Chronic GERD K21.9 [facility] [address] [place] [facility] [place] [address] Feb, [facility] [address] [place] [address] Feb, [facility] [address] [place] [address] Feb, [facility] [address] [place] [address] Feb, Diarrhea, unspecified type R19.7 [facility] [address] [place] [address] Feb, Abnormal glucose R73.[address] [address] Feb, Abnormal glucose R73.[address] [address] Feb, Reactive airway disease, mild persistent , uncomplicated J45.[address] [address] Feb, Lumbago with sciatica, left side M54.42 ; Cigarette nicotine dependence, uncomplicated F17.210 ; Diarrhea, unspecified type R19.7 and Abnormal glucose R73.[address] [address] January, [address] [address] January, [address] [address] January, [address] [address] January, [address] [address] January, Muscle strain of chest wall, initial enc ounter S29.011A ; Physical exam Z00.00 ; Need for hepatitis vaccination Z23 and Abscess L02.[address] [address] Dec, Left hand pain M79.642 ; Thoracic spine pain M54.6 ; Cervical pain M54.2 and Elevated blood pressure reading R03.[address] [address] Dec, Lumbago with sciatica, left side M54.42 and Decreased hearing of left ear H91.[address] [address] Dec, Other chest pain R07.89 ; Finger pain, l eft M79.645 ; Chronic GERD K21.9 and Muscle strain of chest wall, initial encounter S29.011A [facility] [address] [place] [address] Dec, [address] [address] Dec, Other constipation K59.09 ; Irregular pe riods N92.6 and Absent periods N91.[address] [address] Oct, [address] [address] Oct, Weight gain R63.[address] [address] Oct, Generalized anxiety disorder F41.[address] [address] Sep, [address] [address] Sep, Absent periods N91.2 and Decreased heari ng of left ear H91.[address] [address] Sep, [address] [address] Sep, Pre-op exam Z01.818 and Abscess of chest wall L02.[address] [address] Sep, [address] [address] Sep, Prediabetes R73.09 ; Vitamin D deficienc y E55.9 ; Mixed hyperlipidemia E78.2 and Arthritis of ankle, left M19.[address] [address] Sep, Smoking trying to quit Z72.0 ; Chronic G ERD K21.9 ; Generalized anxiety disorder F41.1 ; Other chest pain R07.89 ; Other constipation K59.09 and Right upper quadrant pain R10.[address] [address] Aug, [facility] [address] [place] [address] Aug, Other chronic pain G89.29 [facility] [address] [place] [address] Aug, Mixed hyperlipidemia E78.2 ; Fibromyalgi a M79.7 ; Lumbago of lumbar region with sciatica M54.40 ; History of gestational diabetes Z86.32 ; Prediabetes R73.09 ; Vitamin D deficiency E55.9 ; Weight gain R63.5 ; control counseling Z30.09 ; Pain, dental K08.89 and Flank pain R10.9 [facility] [address] [place] [address] Aug, [facility] [address] [place] [address] Jun, Acute left ankle pain M25.572 [facility] [address] [place] [address] Jun, [facility] [address] [place] [address] Jun, [facility] [address] [place] [address] Jun, Acute left ankle pain M25.572 [facility] [address] [place] [address] Jun, [facility] [address] [place] [address] Jun, Acute left ankle pain M25.572 [facility] [address] [place] [address] Jun, Influenza vaccine needed Z23 and Irregul ar periods N92.6 [facility] [address] [place] [address] May, Mixed hyperlipidemia E78.2 [facility] [address] [place] [address] May, [facility] [address] [place] [address] May, Chronic GERD K21.9 [facility] [address] [place] [address] Apr, Weight gain R63.5 [facility] [address] [place] [address] Apr, Chronic GERD K21.9 and Weight gain R63.[address] [address] Mar, Depression with anxiety F41.8 and Chroni c idiopathic constipation K59.09 [facility] [address] [place] [address] Mar, Other chronic pain G89.[address] [address] Mar, Post herpetic neuralgia B02.[address] [address] Mar, Post herpetic neuralgia B02.[address] [address] Mar, [address] [address] Mar, Other elevated white blood cell (WBC) co unt D72.[address] [address] Mar, Other elevated white blood cell (WBC) co unt D72.828 and Dyslipidemia E78.[address] [address] Feb, [address] [address] Feb, Vitamin D deficiency E55.9 ; Dyslipidemi a E78.5 ; Other elevated white blood cell (WBC) count D72.828 and Skin tag L91.[address] [address] Feb, [address] [address] Feb, Vitamin D deficiency E55.9 and Dyslipide sourav E78.5 [facility] [address] [place] [address] Feb, [address] [address] Feb, Post herpetic neuralgia B02.29 ; Thyroid disorder screen Z13.29 ; Mixed hyperlipidemia E78.2 ; Chronic GERD K21.9 ; Lumbago of lumbar region with sciatica M54.40 ; Prediabetes R73.03 ; Other fatigue R53.83 ; Vitamin D deficiency E55.9 and Vitamin B 12 deficiency E53.8 [facility] [address] [place] [address] Feb, Reactive airway disease, mild persistent , uncomplicated J45.[address] [address] Feb, Chronic GERD K21.[address] [address] Feb, Mixed hyperlipidemia E78.2 and Other chr onic pain G89.[address] [address] Feb, Lumbago with sciatica, left side M54.42 ; Mixed hyperlipidemia E78.2 and Reactive airway disease, mild persistent, uncomplicated J45.[address] [address] Feb, Chronic GERD K21.[address] [address] Feb, [address] [address] Feb, [address] [address] Feb, Post herpetic neuralgia B02.[address] [address] Feb, Allergic contact dermatitis due to other agents L23.89 and Post herpetic neuralgia B02.[address] [address] Feb, Chronic GERD K21.9 [facility] [address] [place] [address] Feb, Chronic GERD K21.9 [facility] [address] [place] [address] January, Post herpetic neuralgia B02.29 [facility] [address] [place] [address] January, Lumbago with sciatica, left side M54.42 [facility] [address] [place] [address] January, [facility] [address] [place] [address] January, Lumbago of lumbar region with sciatica M 54.40 [facility] [address] [place] [address] January, Other chronic pain G89.29 and Lumbago wi th sciatica, left side M54.42 [facility] [address] [place] [address] January, Depression with anxiety F41.8 [facility] [address] [place] [address] January, Mixed hyperlipidemia E78.2 [facility] [address] [place] [address] January, Abscess of left groin L02.214 [facility] [address] [place] [address] Dec, Depression with anxiety F41.8 [facility] [address] [place] [address] Dec, Irregular periods N92.6 [facility] [address] [place] [address] Nov, Left wrist pain M25.532 and Acute left a nkle pain M25.572 [facility] [address] [place] [address] Nov, Post herpetic neuralgia B02.29 and Absce ss of left groin L02.214 [facility] [address] [place] [address] Sep, Irregular periods N92.[address] [address] Sep, Mixed hyperlipidemia E78.2 ; Flank pain R10.9 and Post herpetic neuralgia B02.[address] [address] Aug, Lumbago of lumbar region with sciatica M 54.40 ; Chronic idiopathic constipation K59.09 ; Depression with anxiety F41.8 and Mixed hyperlipidemia E78.[address] [address] Aug, Other chronic pain G89.[address] [address] Aug, Reactive airway disease, mild persistent , uncomplicated J45.[address] [address] Aug, [address] [address] Aug, Cough R05 and Allergic contact dermatiti s due to other agents L23.[address] [address] Aug, [address] [address] Jul, Other chronic pain G89.[address] [address] Jul, Upper respiratory tract infection, unspe cified type J06.9 ; Chronic GERD K21.9 ; Acute left ankle pain M25.572 and Lumbago of lumbar region with sciatica M54.[address] [address] Jun, Other chronic pain G89.[address] [address] Jun, [address] [address] Jun, [address] [address] Jun, Chronic GERD K21.[address] [address] Jun, [address] [address] 30 May, 2016 Pain in right wrist M25.531 ; Left wrist pain M25.532 ; Acute left ankle pain M25.572 ; Thoracic spine pain M54.6 ; Lumbago with sciatica, left side M54.42 ; Other chronic pain G89.29 and Dysuria R30.[address] [address] May, Chronic GERD K21.[address] [address] May, Chronic GERD K21.[address] [address] May, [address] [address] 19 May, [address] [address] 16 May, [address] [address] May, [address] [address] 16 May, 2016 Mixed hyperlipidemia E78.2 ; Fibromyalgi a M79.7 ; Depression with anxiety F41.8 ; Lumbago of lumbar region with sciatica M54.40 ; Encounter to establish care Z76.89 ; Chronic GERD K21.9 ; History of gestational diabetes Z86.32 ; Chronic idiopathic constipation K59.09 ; Thyroid disorder screen Z13.29 and Need for influenza vaccination Z23 [facility] [address] [place] [phone] Apr, Gestational diabetes O24.419 [facility] [address] [place] [address] Feb, Gestational diabetes O24.419 IMMUNIZATIONS No Known Immunizations SOCIAL HISTORY Never Assessed REASON FOR VISIT abx for boils PLAN OF CARE VITAL SIGNS MEDICATIONS Medication Instructions Dosage Frequency Start Date End Date Duration S tatus Hydrochlorothiazide 12.5 MG Orally Once a day 1 tablet 24h 23 S 2018 30 day(s) Active Ventolin HFA 108 (90 Base) MCG/ACT Inhalation every 4 hrs 2 puffs a s needed 4h Aug, 30 days Active Nystatin 750478 UNIT/GM Externally Twice a day 1 application to affected area 12h May, 30 days Active Gabapentin 800 MG Orally QID 1 tablet 6h Ac tive Pravastatin Sodium 20 MG TAKE 1 TABLET BY MOUTH ONCE DAILY A T BEDTIME 90 Active Methocarbamol 500 MG Orally four times daily 2 tablets 01 Oc 2018 30 day(s) Active Sertraline HCl 100 MG Orally Once a day 2 tablet 24h 30 days Active Pantoprazole Sodium 40 MG Orally BID 1 tablet 12h Jul, 30 days Active Colace 100 MG Orally Once a day 1 capsule as needed 24h 30 Active Ondansetron 4 MG Orally every 4 hrs 1 tablet on the tong ue and allow to dissolve as needed 4h Active Dicyclomine HCl 20 MG Orally Four times a day 1 tablet 6h 30 day(s) Active Bactrim DS 800-160 MG Orally Twice a day 1 tablet 12h Jun, 019 Jul, 7 days Active Lamotrigine 25 MG Orally twice daily 1 tablet Mar, 30 day(s) Active Dexilant 60 MG Orally Once a day 1 capsule 24h Sep, 30 day(s) Active Triamcinolone Acetonide 0.1 % Externally Twice a day 1 appli cation to affected area 12h Apr, 10 days Active Mobic 15 MG Orally Once a day 1 tablet 24h Jul, 90 d ays Active Quetiapine Fumarate 25 MG Orally Once a day 2 tablets at bedtime 24 h Aug, 30 day(s) Active Esomeprazole Magnesium 40 MG Orally Once a day in the morning 1 cap celeste Mar, 30 day(s) Active Tramadol HCl 50 MG Orally Three times daily take 1-2 tablet by mouth three times daily 30 Active Cyclobenzaprine HCl 10 MG TAKE 1 TABLET BY MOUTH THREE (3) T IMES DAILY 10 Active Bactrim DS 800-160 MG Orally Twice a day 1 tablet 12h 04 Feb, 2019 10 day(s) Active Pantoprazole Sodium 20 MG Orally twice daily 1 tablet 15 Oc 2018 30 day(s) Active Nortriptyline HCl 25 MG Orally QHS 1 capsule 30 Active Multivitamin Adult - Act nancy RESULTS No Results PROCEDURES No Known procedures [...] History Fused L ankle 09/2017 Hospitalization History [facility]- Hyperglycemia and February 2016 Hospitalization History Ankle surgery 09/2017
--- OUTSIDE RECORDS SUMMARY | 2020-03-15 21:19 | XMS REPORT ---
Author Author Solange Sultana [facility] Address [address], [place] [id number] Care Team Providers Care Operations And Maintenance Supervisor Name Role Phone Kodi Lowery Felisha Unavailable PROBLEMS Type Condition ICD9-CM Code [id number] Code Onset Dates Condition S tatus SNOMED Code Problem Prediabetes R73.09 Active 20145556 2 Problem Depression with anxiety F41.8 Active 875709610 Problem Fibromyalgia M79.7 Active 6355914 05 Problem Chronic GERD K21.9 Active 4388566 09 Problem Mixed hyperlipidemia E78.2 Active 635191219 Problem Right hip pain M25.551 Active 79858 1827964623 Problem Pain in pelvis R10.2 Active 03157 006 Problem History of gestational diabetes Z86.32 Active 182330860 Problem Gestational diabetes O24.419 Active 47065403 Problem Other chronic pain G89.29 Active 8 7017405 Problem Pain in right wrist M25.531 Active 70714244 Problem Plantar fasciitis M72.2 Active 20 4227290 Problem Left wrist pain M25.532 Active 5660 8008 Problem Post herpetic neuralgia B02.29 Active 4968306 Problem Reactive airway disease, mild persistent, uncomplicated J45.30 Active 853614453389 Problem Lumbago of lumbar region with sciatica M54.40 Active 30388967 Problem Chronic idiopathic constipation K59.09 Active 27019259 Problem Thoracic spine pain M54.6 Active 316390191 Problem Acute left ankle pain M25.572 Active 59013651621896 Problem Lumbago with sciatica, left side M54.42 Active 268886905 Problem Other elevated white blood cell (WBC) count D72.82 8 Active 346587044 Problem Absent periods N91.2 Active 92822 001 Problem Generalized anxiety disorder F41.1 A ctive 98519552 Problem Cervical pain M54.2 Active 840377 05 Problem Decreased hearing of left ear H91.92 Active 78821176 Problem Elevated blood pressure reading R03.0 Active 25911617 Problem Left hand pain M79.642 Active 04939 5184897668 Problem Prediabetes R73.03 Active 07031119 2 Problem Irregular periods N92.6 Active 80 324168 Problem Other fatigue R53.83 Active 989867 01 Problem Vitamin D deficiency E55.9 Active 51082435 Problem Menstrual cramps N94.6 Active 431 717334 Problem Excessive daytime sleepiness G47.19 A ctive 951260647576 Problem Constipation by delayed colonic transit K59.01 Active 74349563 Problem Primary insomnia F51.01 Active 397 2004 Problem Vitamin B 12 deficiency E53.8 Active 010828161 Problem GERD with esophagitis K21.0 Active 870822082 Problem Abscess, axilla L02.419 Active 1380 2001 Problem Mild persistent asthma without complication J45.30 Active 383185830 Problem Neck pain M54.2 Active 25945419 Problem Left hip pain M25.552 Active 422051 02 Problem Right anterior shoulder pain M25.511 A ctive 01423636 Problem Dislocation of temporomandibular joint, initial encounter S03.00XA Active 014313482 Problem Irritable bowel syndrome with diarrhea K58.0 Active 600392010 Problem Essential hypertension I10 Active 43531601 Problem Cigarette nicotine dependence, uncomplicated F17.2 10 Active 22656376 Problem Rosacea L71.9 Active 870101836 Problem Radiculopathy of lumbar region M54.16 Active 460997367 Problem Spinal stenosis, lumbar region without neurogeni c claudication M48.061 Active 79861457 Problem Sleep apnea in adult G47.30 Active 33619657 Problem Bipolar disorder F31.9 Active 137 90840 ALLERGIES No Information ENCOUNTERS Encounter Location Date Diagnosis [facility] [address] [place] [address] Jun, Dislocation of temporomandibular joint, initial encounter S03.00XA [address] [address] May, Dislocation of temporomandibular joint, initial encounter S03.00XA ; Essential hypertension I10 and Intertrigo L30.4 [facility] [address] [place] [address] Apr, Depression with anxiety F41.[address] [address] Apr, Primary insomnia F51.[address] [address] Apr, Lumbago of lumbar region with sciatica M 54.40 and Vitamin D deficiency E55.[address] [address] Apr, Vitamin D deficiency E55.[address] [address] Apr, Allergic contact dermatitis due to other agents L23.89 ; Bipolar disorder F31.9 ; Mixed hyperlipidemia E78.2 ; Prediabetes R73.09 ; Vitamin D deficiency E55.9 ; Depression with anxiety F41.8 ; Dizziness R42 ; Other fatigue R53.83 ; Left anterior shoulder pain M25.512 and Left lateral ankle pain M25.[address] [address] Apr, Mixed hyperlipidemia E78.[address] [address] Apr, [address] [address] Apr, Bipolar disorder F31.9 ; Fibromyalgia M7 9.7 ; Depression with anxiety F41.8 ; Lumbago of lumbar region with sciatica M54.40 and Acute left ankle pain M25.[address] [address] Mar, Constipation by delayed colonic transit K59.01 ; Mixed hyperlipidemia E78.2 ; Depression with anxiety F41.8 ; Chronic GERD K21.9 and Bipolar disorder F31.[address] [address] Feb, Abscess L02.[address] [address] Dec, Chronic GERD K21.9 and Mixed hyperlipide sourav E78.[address] [address] Nov, [address] [address] Nov, [address] [address] Oct, Abscess, axilla L02.419 and Lumbago of l umbar region with sciatica M54.[address] [address] Oct, Fall, initial encounter W19.XXXA ; Right hip pain M25.551 ; Pain in pelvis R10.2 ; Right anterior shoulder pain M25.511 ; Left hip pain M25.552 ; Neck pain M54.2 ; Depression with anxiety F41.8 and Shingles B02.[address] [address] Oct, [address] [address] Oct, Sleep apnea in adult G47.[address] [address] Sep, Mixed hyperlipidemia E78.2 ; Prediabetes R73.09 ; Vitamin D deficiency E55.9 ; Fibromyalgia M79.7 ; Chronic GERD K21.9 ; Radiculopathy of lumbar region M54.16 ; Spinal stenosis, lumbar region without neurogenic claudication M48.061 ; Vitamin B 12 deficiency E53.8 ; Depression with anxiety F41.8 ; Cervical pain M54.2 and Hospital discharge follow-up Z09 [address] [address] Sep, [address] [address] Sep, [address] [address] Sep, Post herpetic neuralgia B02.[address] [address] Sep, Mixed hyperlipidemia E78.2 ; Vitamin D [...] congestion R09.81 and GERD with esophagitis K21.[address] [address] Aug, [address] [address] Aug, Depression with anxiety F41.8 and Primar y insomnia F51.[address] [address] 13 Aug, 2018 Chronic GERD K21.[address] [address] Aug, [address] [address] 15 Jul, 2018 Irregular periods N92.6 and Menstrual cr amps N94.[address] [address] 14 Jul, [address] [address] Jul, [address] [address] 12 Jul, 2018 Abscess L02.[address] [address] 06 Jul, 2018 Mixed hyperlipidemia E78.2 ; Chronic ABDOUL D K21.9 and Generalized anxiety disorder F41.[address] [address] 06 Jul, 2018 Well woman exam with routine gynecologic al exam Z01.419 ; Menstrual cramps N94.6 ; Acute left ankle pain M25.572 ; Snoring R06.83 and Excessive daytime sleepiness G47.19 [facility] [address] [place] [address] Jun, Shingles B02.9 [facility] [address] [place] [address] Jun, Pruritic dermatitis L29.9 and Rosacea L7 1.9 [facility] [address] [place] [address] Jun, [facility] [address] [place] [address] Jun, [facility] [address] [place] [address] Jun, [facility] [address] [place] [address] Jun, Butterfly rash R21 ; Influenza vaccine n eeded Z23 ; Prediabetes R73.09 ; Mixed hyperlipidemia E78.2 and Vitamin D deficiency E55.9 [facility] [address] [place] [address] Apr, Left ankle swelling M25.[address] [address] Apr, [address] [address] Apr, [address] [address] Mar, Edema of left foot R60.0 [facility] [address] [place] [address] Mar, Irritable bowel syndrome with diarrhea K 58.[address] [address] Mar, [facility] [address] [place] [address] Mar, [facility] [address] [place] [address] Mar, [address] [place] [address] Feb, Irritable bowel syndrome with diarrhea K 58.0 [facility] [address] [place] [address] Feb, [facility] [address] [place] [address] Feb, Irritable bowel syndrome with diarrhea K 58.0 [facility] [address] [place] [address] Feb, control counseling Z30.09 ; Lumbag o with sciatica, left side M54.42 and Chronic GERD K21.9 [facility] [address] [place] [address] Feb, [facility] [address] [place] [address] Feb, [address] [address] Feb, [facility] [address] [place] [address] Feb, Diarrhea, unspecified type R19.7 [facility] [address] [place] [address] Feb, Abnormal glucose R73.[address] [address] Feb, Abnormal glucose R73.[address] [address] Feb, Reactive airway disease, mild persistent , uncomplicated J45.[address] [address] 04 Feb, 2018 Lumbago with sciatica, left side M54.42 ; Cigarette nicotine dependence, uncomplicated F17.210 ; Diarrhea, unspecified type R19.7 and Abnormal glucose R73.[address] [address] January, [facility] [address] [place] [address] January, [address] [place] [address] January, [address] [address] January, [address] [address] January, Muscle strain of chest wall, initial enc ounter S29.011A ; Physical exam Z00.00 ; Need for hepatitis vaccination Z23 and Abscess L02.[address] [address] Dec, Left hand pain M79.642 ; Thoracic spine pain M54.6 ; Cervical pain M54.2 and Elevated blood pressure reading R03.[address] [address] Dec, Lumbago with sciatica, left side M54.42 and Decreased hearing of left ear H91.[address] [address] Dec, Other chest pain R07.89 ; Finger pain, l eft M79.645 ; Chronic GERD K21.9 and Muscle strain of chest wall, initial encounter S29.011A [address] [address] Dec, [address] [address] Dec, Other constipation K59.09 ; Irregular pe riods N92.6 and Absent periods N91.[address] [address] Oct, [address] [address] Oct, Weight gain R63.[address] [address] Oct, Generalized anxiety disorder F41.[address] [address] Sep, [address] [address] Sep, Absent periods N91.2 and Decreased heari ng of left ear H91.[address] [address] Sep, [address] [address] Sep, Pre-op exam Z01.818 and Abscess of chest wall L02.[address] [address] Sep, [address] [address] Sep, Prediabetes R73.09 ; Vitamin D deficienc y E55.9 ; Mixed hyperlipidemia E78.2 and Arthritis of ankle, left M19.[address] [address] Sep, Smoking trying to quit Z72.0 ; Chronic G ERD K21.9 ; Generalized anxiety disorder F41.1 ; Other chest pain R07.89 ; Other constipation K59.09 and Right upper quadrant pain R10.[address] [address] Aug, [address] [address] 15 Aug, 2017 Other chronic pain G89.[address] [address] 14 Aug, 2017 Mixed hyperlipidemia E78.2 ; Fibromyalgi a M79.7 ; Lumbago of lumbar region with sciatica M54.40 ; History of gestational diabetes Z86.32 ; Prediabetes R73.09 ; Vitamin D deficiency E55.9 ; Weight gain R63.5 ; control counseling Z30.09 ; Pain, dental K08.89 and Flank pain R10.[address] [address] Aug, [address] [address] Jun, Acute left ankle pain M25.572 [facility] [address] [place] [address] Jun, [facility] [address] [place] [address] Jun, [facility] [address] [place] [address] Jun, Acute left ankle pain M25.572 [facility] [address] [place] [address] Jun, [facility] [address] [place] [address] Jun, Acute left ankle pain M25.572 [facility] [address] [place] [address] Jun, Influenza vaccine needed Z23 and Irregul ar periods N92.6 [facility] [address] [place] [address] May, Mixed hyperlipidemia E78.2 [facility] [address] [place] [address] May, [facility] [address] [place] [address] May, Chronic GERD K21.9 [facility] [address] [place] [address] Apr, Weight gain R63.5 [facility] [address] [place] [address] Apr, Chronic GERD K21.9 and Weight gain R63.5 [facility] [address] [place] [address] Mar, Depression with anxiety F41.8 and Chroni c idiopathic constipation K59.09 [facility] [address] [place] [address] Mar, Other chronic pain G89.29 [facility] [address] [place] [address] Mar, Post herpetic neuralgia B02.29 [facility] [address] [place] [address] Mar, Post herpetic neuralgia B02.[address] [address] Mar, [address] [address] Mar, Other elevated white blood cell (WBC) co unt D72.[address] [address] Mar, Other elevated white blood cell (WBC) co unt D72.828 and Dyslipidemia E78.[address] [address] Feb, [address] [address] Feb, Vitamin D deficiency E55.9 ; Dyslipidemi a E78.5 ; Other elevated white blood cell (WBC) count D72.828 and Skin tag L91.[address] [address] Feb, [address] [address] Feb, Vitamin D deficiency E55.9 and Dyslipide sourav E78.[address] [address] Feb, [address] [address] Feb, Post herpetic neuralgia B02.29 ; Thyroid disorder screen Z13.29 ; Mixed hyperlipidemia E78.2 ; Chronic GERD K21.9 ; Lumbago of lumbar region with sciatica M54.40 ; Prediabetes R73.03 ; Other fatigue R53.83 ; Vitamin D deficiency E55.9 and Vitamin B 12 deficiency [address]53.[address] [address] Feb, Reactive airway disease, mild persistent , uncomplicated J45.[address] [address] Feb, Chronic GERD K21.9 [facility] [address] [place] [address] 23 Feb, 2017 Mixed hyperlipidemia E78.2 and Other chr onic pain G89.29 [facility] [address] [place] [address] Feb, Lumbago with sciatica, left side M54.42 ; Mixed hyperlipidemia E78.2 and Reactive airway disease, mild persistent, uncomplicated J45.30 [facility] [address] [place] [address] 20 Feb, 2017 Chronic GERD K21.9 [facility] [address] [place] [address] Feb, [facility] [address] [place] [address] Feb, [facility] [address] [place] [address] Feb, Post herpetic neuralgia B02.29 [facility] [address] [place] [address] Feb, Allergic contact dermatitis due to other agents L23.89 and Post herpetic neuralgia B02.29 [facility] [address] [place] [address] Feb, Chronic GERD K21.9 [facility] [address] [place] [address] 13 Feb, 2017 Chronic GERD K21.9 [facility] [address] [place] [address] January, Post herpetic neuralgia B02.29 [facility] [address] [place] [address] January, Lumbago with sciatica, left side M54.42 [facility] [address] [place] [address] January, [facility] [address] [place] [address] January, Lumbago of lumbar region with sciatica M 54.40 [facility] [address] [place] [address] January, Other chronic pain G89.29 and Lumbago wi th sciatica, left side M54.42 [facility] [address] [place] [address] January, Depression with anxiety F41.8 [facility] [address] [place] [address] January, Mixed hyperlipidemia E78.2 [facility] [address] [place] [address] January, Abscess of left groin L02.214 [facility] [address] [place] [address] Dec, Depression with anxiety F41.[address] [address] Dec, Irregular periods N92.[address] [address] Nov, Left wrist pain M25.532 and Acute left a nkle pain M25.572 [facility] [address] [place] [address] Nov, Post herpetic neuralgia B02.29 and Absce ss of left groin L02.214 [facility] [address] [place] [address] Sep, Irregular periods N92.6 [facility] [address] [place] [address] Sep, Mixed hyperlipidemia E78.2 ; Flank pain R10.9 and Post herpetic neuralgia B02.29 [facility] [address] [place] [address] Aug, Lumbago of lumbar region with sciatica M 54.40 ; Chronic idiopathic constipation K59.09 ; Depression with anxiety F41.8 and Mixed hyperlipidemia E78.2 [facility] [address] [place] [address] Aug, Other chronic pain G89.29 [facility] [address] [place] [address] Aug, Reactive airway disease, mild persistent , uncomplicated J45.[address] [address] Aug, [address] [address] Aug, Cough R05 and Allergic contact dermatiti s due to other agents L23.[address] [address] Aug, [address] [address] Jul, Other chronic pain G89.[address] [address] Jul, Upper respiratory tract infection, unspe cified type J06.9 ; Chronic GERD K21.9 ; Acute left ankle pain M25.572 and Lumbago of lumbar region with sciatica M54.[address] [address] Jun, Other chronic pain G89.[address] [address] Jun, [address] [address] Jun, [address] [address] Jun, Chronic GERD K21.[address] [address] Jun, [address] [address] May, Pain in right wrist M25.531 ; Left wrist pain M25.532 ; Acute left ankle pain M25.572 ; Thoracic spine pain M54.6 ; Lumbago with sciatica, left side M54.42 ; Other chronic pain G89.29 and Dysuria R30.[address] [address] May, Chronic GERD K21.9 [address] [place] [address] May, Chronic GERD K21.[address] [address] May, [address] [address] May, [address] [address] May, [facility] [address] [place] [address] May, [address] [address] May, Mixed hyperlipidemia E78.2 ; Fibromyalgi a M79.7 ; Depression with anxiety F41.8 ; Lumbago of lumbar region with sciatica M54.40 ; Encounter to establish care Z76.89 ; Chronic GERD K21.9 ; History of gestational diabetes Z86.32 ; Chronic idiopathic constipation K59.09 ; Thyroid disorder screen Z13.29 and Need for influenza vaccination Z23 [facility] [address] [place] [address] Apr, Gestational diabetes O24.419 [facility] [address] [place] [phone] Feb, Gestational diabetes O24.419 IMMUNIZATIONS No Known Immunizations SOCIAL HISTORY Never Assessed REASON FOR VISIT PLAN OF CARE VITAL SIGNS MEDICATIONS Medication Instructions Dosage Frequency Start Date End Date Duration S tatus Sertraline HCl 100 MG Orally Once a day 2 tablet 24h 30 days Active Multivitamin Adult - Act nancy Methocarbamol 500 MG Orally four times daily 2 tablets 2018 30 day(s) Active Nortriptyline HCl 25 MG Orally QHS 1 capsule 30 Active Omeprazole 40 MG Orally Once a day QHS 1 capsule Mar, 30 day(s) Active Nystatin 154944 UNIT/GM Externally Twice a day 1 application to affected area 12h May, 30 days Active Cyclobenzaprine HCl 10 MG TAKE 1 TABLET BY MOUTH THREE (3) T IMES DAILY 10 Active Bactrim DS 800-160 MG Orally Twice a day 1 tablet 12h Feb, 10 day(s) Active Lamotrigine 25 MG Orally twice daily 1 tablet Mar, 30 day(s) Active Ondansetron 4 MG Orally every 4 hrs 1 tablet on the tong ue and allow to dissolve as needed 4h Active Ventolin HFA 108 (90 Base) MCG/ACT Inhalation every 4 hrs 2 puffs a s needed 4h Aug, 30 days Active Pravastatin Sodium 20 MG TAKE 1 TABLET BY MOUTH ONCE DAILY A T BEDTIME 90 Active Mobic 15 MG Orally Once a day 1 tablet 24h Jul, 90 d ays Active Triamcinolone Acetonide 0.1 % Externally Twice a day 1 appli cation to affected area 12h Apr, 10 days Active Esomeprazole Magnesium 40 MG Orally Once a day in the morning 1 cap celeste Mar, 30 day(s) Active Tramadol HCl 50 MG Orally Three times daily take 1-2 tablet by mouth three times daily 30 Active Colace 100 MG Orally Once a day 1 capsule as needed 24h 30 Active Dicyclomine HCl 20 MG Orally Four times a day 1 tablet 6h 30 day(s) Active Quetiapine Fumarate 25 MG Orally Once a day 2 tablets at bedtime 24 h Aug, 30 day(s) Active Pantoprazole Sodium 40 MG Orally BID 1 tablet 12h Jul, 30 days Active Hydrochlorothiazide 12.5 MG Orally Once a day 1 tablet 24h 23 S 2018 30 day(s) Active Gabapentin 800 MG Orally QID 1 tablet 6h Ac tive Dexilant 60 MG Orally Once a day 1 capsule 24h Sep, 30 day(s) Active RESULTS No Results PROCEDURES No Known [...] History Fused L ankle 09/2017 Hospitalization History [facility]- Hyperglycemia and February 2016 Hospitalization History Ankle surgery 09/2017
--- OUTSIDE RECORDS SUMMARY | 2020-03-15 21:20 | XMS REPORT ---
Author Author Solange Sultana [facility] Address [address] [place], [place] [id number] Care Team Providers Care Record Changer Assembler Name Role Phone Kodi Lowery Felisha Unavailable PROBLEMS Type Condition ICD9-CM Code [id number] Code Onset Dates Condition S tatus SNOMED Code Problem Prediabetes R73.09 Active 63883937 2 Problem Depression with anxiety F41.8 Active 020673812 Problem Fibromyalgia M79.7 Active 8366522 05 Problem Chronic GERD K21.9 Active 5563944 09 Problem Mixed hyperlipidemia E78.2 Active 193947322 Problem Right hip pain M25.551 Active 11572 0971434833 Problem Pain in pelvis R10.2 Active 39931 006 Problem History of gestational diabetes Z86.32 Active 350989060 Problem Gestational diabetes O24.419 Active 07465805 Problem Other chronic pain G89.29 Active 8 2491157 Problem Pain in right wrist M25.531 Active 56960306 Problem Plantar fasciitis M72.2 Active 20 2809660 Problem Left wrist pain M25.532 Active 5660 8008 Problem Post herpetic neuralgia B02.29 Active 1358315 Problem Reactive airway disease, mild persistent, uncomplicated J45.30 Active 651051243068 Problem Lumbago of lumbar region with sciatica M54.40 Active 52228173 Problem Chronic idiopathic constipation K59.09 Active 65232041 Problem Thoracic spine pain M54.6 Active 168241847 Problem Acute left ankle pain M25.572 Active 92049715468870 Problem Lumbago with sciatica, left side M54.42 Active 833733974 Problem Other elevated white blood cell (WBC) count D72.82 8 Active 604387801 Problem Absent periods N91.2 Active 18887 001 Problem Generalized anxiety disorder F41.1 A ctive 94452947 Problem Cervical pain M54.2 Active 944085 05 Problem Decreased hearing of left ear H91.92 Active 66669346 Problem Elevated blood pressure reading R03.0 Active 39757547 Problem Left hand pain M79.642 Active 40346 5695649607 Problem Prediabetes R73.03 Active 53781350 2 Problem Irregular periods N92.6 Active 80 084653 Problem Other fatigue R53.83 Active 752869 01 Problem Vitamin D deficiency E55.9 Active 13986981 Problem Menstrual cramps N94.6 Active 431 119590 Problem Excessive daytime sleepiness G47.19 A ctive 789364919510 Problem Constipation by delayed colonic transit K59.01 Active 87930570 Problem Primary insomnia F51.01 Active 397 2004 Problem Vitamin B 12 deficiency E53.8 Active 291074178 Problem GERD with esophagitis K21.0 Active 083403050 Problem Abscess, axilla L02.419 Active 1380 2001 Problem Mild persistent asthma without complication J45.30 Active 507988978 Problem Neck pain M54.2 Active 62852646 Problem Left hip pain M25.552 Active 224740 02 Problem Right anterior shoulder pain M25.511 A ctive 86155420 Problem Dislocation of temporomandibular joint, initial encounter S03.00XA Active 225205054 Problem Irritable bowel syndrome with diarrhea K58.0 Active 561563162 Problem Essential hypertension I10 Active 85670345 Problem Cigarette nicotine dependence, uncomplicated F17.2 10 Active 35604739 Problem Rosacea L71.9 Active 530439123 Problem Radiculopathy of lumbar region M54.16 Active 171595356 Problem Spinal stenosis, lumbar region without neurogeni c claudication M48.061 Active 94593029 Problem Sleep apnea in adult G47.30 Active 30416041 Problem Bipolar disorder F31.9 Active 137 58152 ALLERGIES Substance Reaction Event Type Date Status Hydrocodone-Acetaminophen vomitting Drug Allergy May, Ac tive all medical tape rash Non Drug Allergy May, Active latex rash Non Drug Allergy May, Active Oxycodone HCl vomitting Drug Allergy May, Active ENCOUNTERS Encounter Location Date Diagnosis [address] [address] May, Dislocation of temporomandibular joint, initial encounter S03.00XA ; Essential hypertension I10 and Intertrigo L30.4 [address] [place] [address] Apr, Depression with anxiety F41.[address] [address] Apr, Primary insomnia F51.[address] [address] Apr, Lumbago of lumbar region with sciatica M 54.40 and Vitamin D deficiency E55.[address] [address] Apr, Vitamin D deficiency E55.[address] [address] Apr, Allergic contact dermatitis due to other agents L23.89 ; Bipolar disorder F31.9 ; Mixed hyperlipidemia E78.2 ; Prediabetes R73.09 ; Vitamin D deficiency E55.9 ; Depression with anxiety F41.8 ; Dizziness R42 ; Other fatigue R53.83 ; Left anterior shoulder pain M25.512 and Left lateral ankle pain M25.[address] [address] Apr, Mixed hyperlipidemia E78.[address] [address] Apr, [address] [address] Apr, Bipolar disorder F31.9 ; Fibromyalgia M7 9.7 ; Depression with anxiety F41.8 ; Lumbago of lumbar region with sciatica M54.40 and Acute left ankle pain M25.[address] [address] Mar, Constipation by delayed colonic transit K59.01 ; Mixed hyperlipidemia E78.2 ; Depression with anxiety F41.8 ; Chronic GERD K21.9 and Bipolar disorder F31.[address] [address] Feb, Abscess L02.[address] [address] Dec, Chronic GERD K21.9 and Mixed hyperlipide sourav E78.[address] [address] Nov, [address] [address] Nov, [address] [address] Oct, Abscess, axilla L02.419 and Lumbago of l umbar region with sciatica M54.[address] [address] Oct, Fall, initial encounter W19.XXXA ; Right hip pain M25.551 ; Pain in pelvis R10.2 ; Right anterior shoulder pain M25.511 ; Left hip pain M25.552 ; Neck pain M54.2 ; Depression with anxiety F41.8 and Shingles B02.[address] [address] Oct, [address] [address] Oct, Sleep apnea in adult G47.[address] [address] Sep, Mixed hyperlipidemia E78.2 ; Prediabetes R73.09 ; Vitamin D deficiency E55.9 ; Fibromyalgia M79.7 ; Chronic GERD K21.9 ; Radiculopathy of lumbar region M54.16 ; Spinal stenosis, lumbar region without neurogenic claudication M48.061 ; Vitamin B 12 deficiency E53.8 ; Depression with anxiety F41.8 ; Cervical pain M54.2 and Hospital discharge follow-up Z09 [address] [address] Sep, [address] [address] Sep, [address] [address] Sep, Post herpetic neuralgia B02.[address] [address] Sep, Mixed hyperlipidemia E78.2 ; Vitamin D [...] congestion R09.81 and GERD with esophagitis K21.[address] [address] Aug, [address] [address] Aug, Depression with anxiety F41.8 and Primar y insomnia F51.[address] [address] Aug, Chronic GERD K21.[address] [address] Aug, [address] [address] Jul, Irregular periods N92.6 and Menstrual cr amps N94.[address] [address] Jul, [address] [address] Jul, [address] [address] Jul, Abscess L02.[address] [address] Jul, Mixed hyperlipidemia E78.2 ; Chronic ABDOUL D K21.9 and Generalized anxiety disorder F41.[address] [address] Jul, Well woman exam with routine gynecologic al exam Z01.419 ; Menstrual cramps N94.6 ; Acute left ankle pain M25.572 ; Snoring R06.83 and Excessive daytime sleepiness G47.19 [facility] [address] [place] [address] Jun, Shingles B02.9 [facility] [address] [place] [address] Jun, Pruritic dermatitis L29.9 and Rosacea L7 1.9 [facility] [address] [place] [address] Jun, [facility] [address] [place] [address] Jun, [address] [address] Jun, [address] [address] Jun, Butterfly rash R21 ; Influenza vaccine n eeded Z23 ; Prediabetes R73.09 ; Mixed hyperlipidemia E78.2 and Vitamin D deficiency E55.[address] [address] Apr, Left ankle swelling M25.[address] [address] Apr, [address] [address] Apr, [address] [address] Mar, Edema of left foot R60.[address] [address] Mar, Irritable bowel syndrome with diarrhea K 58.[address] [address] Mar, [facility] [address] [place] [address] Mar, [address] [address] Mar, [facility] [address] [place] [address] Feb, Irritable bowel syndrome with diarrhea K 58.0 [facility] [address] [place] [address] Feb, [facility] [address] [place] [address] Feb, Irritable bowel syndrome with diarrhea K 58.0 [facility] [address] [place] [address] Feb, control counseling Z30.09 ; Lumbag o with sciatica, left side M54.42 and Chronic GERD K21.9 [facility] [address] [place] [address] Feb, [facility] [address] [place] [address] Feb, [facility] [address] [place] [address] Feb, [facility] [address] [place] [address] Feb, Diarrhea, unspecified type R19.7 [facility] [address] [place] [address] Feb, Abnormal glucose R73.09 [facility] [address] [place] [address] Feb, Abnormal glucose R73.09 [facility] [address] [place] [address] 05 Feb, 2018 Reactive airway disease, mild persistent , uncomplicated J45.30 [facility] [address] [place] [address] Feb, Lumbago with sciatica, left side M54.42 ; Cigarette nicotine dependence, uncomplicated F17.210 ; Diarrhea, unspecified type R19.7 and Abnormal glucose R73.09 [facility] [address] [place] [address] January, [facility] [address] [place] [address] January, [facility] [address] [place] [address] January, [address] [address] January, [address] [address] January, Muscle strain of chest wall, initial enc ounter S29.011A ; Physical exam Z00.00 ; Need for hepatitis vaccination Z23 and Abscess L02.[address] [address] Dec, Left hand pain M79.642 ; Thoracic spine pain M54.6 ; Cervical pain M54.2 and Elevated blood pressure reading R03.[address] [address] Dec, Lumbago with sciatica, left side M54.42 and Decreased hearing of left ear H91.[address] [address] Dec, Other chest pain R07.89 ; Finger pain, l eft M79.645 ; Chronic GERD K21.9 and Muscle strain of chest wall, initial encounter S29.011A [address] [address] Dec, [address] [address] Dec, Other constipation K59.09 ; Irregular pe riods N92.6 and Absent periods N91.[address] [address] Oct, [address] [address] Oct, Weight gain R63.[address] [address] Oct, Generalized anxiety disorder F41.[address] [address] Sep, [facility] [address] Sep, Absent periods N91.2 and Decreased heari ng of left ear H91.[address] [address] Sep, [address] [address] Sep, Pre-op exam Z01.818 and Abscess of chest wall L02.[address] [address] Sep, [address] [address] Sep, Prediabetes R73.09 ; Vitamin D deficienc y E55.9 ; Mixed hyperlipidemia E78.2 and Arthritis of ankle, left M19.[address] [address] Sep, Smoking trying to quit Z72.0 ; Chronic G ERD K21.9 ; Generalized anxiety disorder F41.1 ; Other chest pain R07.89 ; Other constipation K59.09 and Right upper quadrant pain R10.[address] [address] Aug, [address] [address] Aug, Other chronic pain G89.[address] [address] Aug, Mixed hyperlipidemia E78.2 ; Fibromyalgi a M79.7 ; Lumbago of lumbar region with sciatica M54.40 ; History of gestational diabetes Z86.32 ; Prediabetes R73.09 ; Vitamin D deficiency E55.9 ; Weight gain R63.5 ; control counseling Z30.09 ; Pain, dental K08.89 and Flank pain R10.[address] [address] Aug, [address] [address] Jun, Acute left ankle pain M25.572 [facility] [address] [place] [address] Jun, [facility] [address] [place] [address] Jun, [facility] [address] [place] [address] Jun, Acute left ankle pain M25.572 [facility] [address] [place] [address] Jun, [facility] [address] [place] [address] Jun, Acute left ankle pain M25.572 [facility] [address] [place] [address] Jun, Influenza vaccine needed Z23 and Irregul ar periods N92.6 [facility] [address] [place] [address] May, Mixed hyperlipidemia E78.2 [facility] [address] [place] [address] May, [facility] [address] [place] [address] May, Chronic GERD K21.9 [facility] [address] [place] [address] Apr, Weight gain R63.5 [facility] [address] [place] [address] Apr, Chronic GERD K21.9 and Weight gain R63.5 [facility] [address] [place] [address] Mar, Depression with anxiety F41.8 and Chroni c idiopathic constipation K59.09 [facility] [address] [place] [address] Mar, Other chronic pain G89.29 [facility] [address] [place] [address] Mar, Post herpetic neuralgia B02.29 [facility] [address] [place] [address] Mar, Post herpetic neuralgia B02.[address] [address] Mar, [address] [address] Mar, Other elevated white blood cell (WBC) co unt D72.[address] [address] Mar, Other elevated white blood cell (WBC) co unt D72.828 and Dyslipidemia E78.[address] [address] Feb, [address] [address] Feb, Vitamin D deficiency E55.9 ; Dyslipidemi a E78.5 ; Other elevated white blood cell (WBC) count D72.828 and Skin tag L91.[address] [address] Feb, [address] [address] Feb, Vitamin D deficiency E55.9 and Dyslipide sourav E78.[address] [address] Feb, [address] [address] Feb, Post herpetic neuralgia B02.29 ; Thyroid disorder screen Z13.29 ; Mixed hyperlipidemia E78.2 ; Chronic GERD K21.9 ; Lumbago of lumbar region with sciatica M54.40 ; Prediabetes R73.03 ; Other fatigue R53.83 ; Vitamin D deficiency E55.9 and Vitamin B 12 deficiency E53.[address] [address] Feb, Reactive airway disease, mild persistent , uncomplicated J45.[address] [address] Feb, Chronic GERD K21.9 [facility] [address] [place] [address] Feb, Mixed hyperlipidemia E78.2 and Other chr onic pain G89.29 [facility] [address] [place] [address] Feb, Lumbago with sciatica, left side M54.42 ; Mixed hyperlipidemia E78.2 and Reactive airway disease, mild persistent, uncomplicated J45.30 [facility] [address] [place] [address] Feb, Chronic GERD K21.9 [facility] [address] [place] [address] Feb, [facility] [address] [place] [address] Feb, [facility] [address] [place] [address] Feb, Post herpetic neuralgia B02.29 [facility] [address] [place] [address] Feb, Allergic contact dermatitis due to other agents L23.89 and Post herpetic neuralgia B02.29 [facility] [address] [place] [address] Feb, Chronic GERD K21.9 [facility] [address] [place] [address] Feb, Chronic GERD K21.9 [facility] [address] [place] [address] January, Post herpetic neuralgia B02.29 [facility] [address] [place] [address] January, Lumbago with sciatica, left side M54.42 [facility] [address] [place] [address] January, [facility] [address] [place] [address] January, Lumbago of lumbar region with sciatica M 54.40 [facility] [address] [place] [address] January, Other chronic pain G89.29 and Lumbago wi th sciatica, left side M54.42 [facility] [address] [place] [address] January, Depression with anxiety F41.[address] [address] January, Mixed hyperlipidemia E78.[address] [address] January, Abscess of left groin L02.[address] [address] Dec, Depression with anxiety F41.[address] [address] Dec, Irregular periods N92.[address] [address] Nov, Left wrist pain M25.532 and Acute left a nkle pain M25.[address] [address] Nov, Post herpetic neuralgia B02.29 and Absce ss of left groin L02.[address] [address] Sep, Irregular periods N92.[address] [address] Sep, Mixed hyperlipidemia E78.2 ; Flank pain R10.9 and Post herpetic neuralgia B02.[address] [address] Aug, Lumbago of lumbar region with sciatica M 54.40 ; Chronic idiopathic constipation K59.09 ; Depression with anxiety F41.8 and Mixed hyperlipidemia E78.[address] [address] Aug, Other chronic pain G89.[address] [address] Aug, Reactive airway disease, mild persistent , uncomplicated J45.[address] [address] Aug, [address] [address] Aug, Cough R05 and Allergic contact dermatiti s due to other agents L23.[address] [address] Aug, [address] [address] Jul, Other chronic pain G89.[address] [address] Jul, Upper respiratory tract infection, unspe cified type J06.9 ; Chronic GERD K21.9 ; Acute left ankle pain M25.572 and Lumbago of lumbar region with sciatica M54.[address] [address] Jun, Other chronic pain G89.[address] [address] Jun, [address] [address] Jun, [address] [address] Jun, Chronic GERD K21.[address] [address] Jun, [address] [address] May, Pain in right wrist M25.531 ; Left wrist pain M25.532 ; Acute left ankle pain M25.572 ; Thoracic spine pain M54.6 ; Lumbago with sciatica, left side M54.42 ; Other chronic pain G89.29 and Dysuria R30.[address] [address] May, Chronic GERD K21.9 [facility] [address] [place] [address] May, Chronic GERD K21.9 [facility] [address] [place] [address] May, [facility] [address] [place] [address] 19 May, 2016 [facility] [address] [place] [address] 16 May, 2016 [facility] [address] [place] [address] 16 May, 2016 [facility] [address] [place] [address] 16 May, 2016 Mixed hyperlipidemia E78.2 ; Fibromyalgi a M79.7 ; Depression with anxiety F41.8 ; Lumbago of lumbar region with sciatica M54.40 ; Encounter to establish care Z76.89 ; Chronic GERD K21.9 ; History of gestational diabetes Z86.32 ; Chronic idiopathic constipation K59.09 ; Thyroid disorder screen Z13.29 and Need for influenza vaccination Z23 [facility] [address] [place] [address] Apr, Gestational diabetes O24.419 [facility] [address] [place] [address] Feb, Gestational diabetes O24.419 IMMUNIZATIONS No Known Immunizations SOCIAL HISTORY Never Assessed REASON FOR VISIT lock jaw and other things PLAN OF CARE Activity Details Follow Up 3 Months, prn Reason: VITAL SIGNS Height 69.5 in 2019-06-16 Weight 330 lbs 2019-06-16 Temperature 98.7 degrees Fahrenheit 2019-06-16 Heart Rate 64 /min 2019-06-16 Respiratory Rate 17 /min 2019-06-16 Oximetry 95 % 2019-06-16 BMI 48.03 kg/m2 2019-06-16 Blood pressure systolic 146 mm Hg 2019-06-16 Blood pressure diastolic 88 mm Hg 2019-06-16 MEDICATIONS Medication Instructions Dosage Frequency Start Date End Date Duration S tatus Sertraline HCl 100 MG Orally Once a day 2 tablet 24h 30 days Active Dexilant 60 MG Orally Once a day 1 capsule 24h Sep, 30 day(s) Active Skelaxin 800 MG Orally Three times a day 1 tablet 8h May, 30 day(s) Active Pantoprazole Sodium 40 MG Orally BID 1 tablet 12h Jul, 30 days Active Mobic 15 MG Orally Once a day 1 tablet 24h Jul, 90 d ays Active Hydrochlorothiazide 12.5 MG Orally Once a day 1 tablet 24h 23 S 2018 30 day(s) Active Tramadol HCl 50 MG Orally Three times daily take 1-2 tablet by mouth three times daily 30 Active Ventolin HFA 108 (90 Base) MCG/ACT Inhalation every 4 hrs 2 puffs a s needed 4h Aug, 30 days Active Omeprazole 40 MG Orally Once a day QHS 1 capsule Mar, 30 day(s) Active Nortriptyline HCl 25 MG Orally QHS 1 capsule 30 Active Dicyclomine HCl 20 MG Orally Four times a day 1 tablet 6h 30 day(s) Active Cyclobenzaprine HCl 10 MG TAKE 1 TABLET BY MOUTH THREE (3) T IMES DAILY 10 Active Esomeprazole Magnesium 40 MG Orally Once a day in the morning 1 cap celeste Mar, 30 day(s) Active Pravastatin Sodium 20 MG TAKE 1 TABLET BY MOUTH ONCE DAILY A T BEDTIME 90 Active Colace 100 MG Orally Once a day 1 capsule as needed 24h 30 Active Triamcinolone Acetonide 0.1 % Externally Twice a day 1 appli cation to affected area 12h Apr, 10 days Active Gabapentin 800 MG Orally QID 1 tablet 6h Ac tive Multivitamin Adult - Act nancy Lamotrigine 25 MG Orally twice daily 1 tablet Mar, 30 day(s) Active Bactrim DS 800-160 MG Orally Twice a day 1 tablet 12h Feb, 10 day(s) Active Quetiapine Fumarate 25 MG Orally Once a day 2 tablets at bedtime 24 h Aug, 30 day(s) Active Nystatin 629421 UNIT/GM Externally Twice a day 1 application to affected area 12h May, 30 days Active Ondansetron 4 MG Orally every 4 hrs 1 tablet on the tong ue and allow to dissolve as needed 4h Active RESULTS No Results PROCEDURES No Known [...]
--- OUTSIDE RECORDS SUMMARY | 2020-03-15 21:20 | XMS REPORT ---
Author Author Solange Sultana [facility] Address [address] [place], [place] [id number] Care Team Providers Care Technician Helper Instrument Name Role Phone Kodi LoweryPhyllisFelisha Unavailable PROBLEMS Type Condition ICD9-CM Code ZHG64-OI Code Onset Dates Condition S tatus SNOMED Code Problem Gestational diabetes O24.419 Active 60995728 Problem Prediabetes R73.09 Active 68503488 2 Problem History of gestational diabetes Z86.32 Active 996649753 Problem Depression with anxiety F41.8 Active 677422405 Problem Fibromyalgia M79.7 Active 8177448 05 Problem Abscess, axilla L02.419 Active 1380 2001 Problem Mild persistent asthma without complication J45.30 Active 342388516 Problem Lumbago with sciatica, left side M54.42 Active 588719534 Problem Thoracic spine pain M54.6 Active 684984255 Problem Other chronic pain G89.29 Active 8 5544669 Problem Pain in right wrist M25.531 Active 81461257 Problem Plantar fasciitis M72.2 Active 20 6382762 Problem Left wrist pain M25.532 Active 5660 8008 Problem Chronic GERD K21.9 Active 0009670 09 Problem Mixed hyperlipidemia E78.2 Active 603908320 Problem Lumbago of lumbar region with sciatica M54.40 Active 02371061 Problem Chronic idiopathic constipation K59.09 Active 07949308 Problem Acute left ankle pain M25.572 Active 86343545393093 Problem Vitamin D deficiency E55.9 Active 31889136 Problem Other elevated white blood cell (WBC) count D72.82 8 Active 290640350 Problem Other fatigue R53.83 Active 487782 01 Problem Absent periods N91.2 Active 92800 001 Problem Generalized anxiety disorder F41.1 A ctive 41274348 Problem Cervical pain M54.2 Active 779863 05 Problem Decreased hearing of left ear H91.92 Active 38936415 Problem Post herpetic neuralgia B02.29 Active 4956492 Problem Reactive airway disease, mild persistent, uncomplicated J45.30 Active 666744842111 Problem Prediabetes R73.03 Active 43337504 2 Problem Irregular periods N92.6 Active 80 837952 Problem Rosacea L71.9 Active 626852671 Problem Irritable bowel syndrome with diarrhea K58.0 Active 763417827 Problem Menstrual cramps N94.6 Active 431 720277 Problem Excessive daytime sleepiness G47.19 A ctive 530104697251 Problem Constipation by delayed colonic transit K59.01 Active 86633606 Problem Primary insomnia F51.01 Active 397 2004 Problem Vitamin B 12 deficiency E53.8 Active 892573870 Problem GERD with esophagitis K21.0 Active 412920217 Problem Pain in pelvis R10.2 Active 95181 006 Problem Right hip pain M25.551 Active 18533 3830940677 Problem Neck pain M54.2 Active 84577196 Problem Sleep apnea in adult G47.30 Active 50106555 Problem Elevated blood pressure reading R03.0 Active 00470563 Problem Bipolar disorder F31.9 Active 137 00757 Problem Left hand pain M79.642 Active 60624 6516276414 Problem Cigarette nicotine dependence, uncomplicated F17.2 10 Active 31361754 Problem Left hip pain M25.552 Active 711756 02 Problem Right anterior shoulder pain M25.511 A ctive 03858935 Problem Radiculopathy of lumbar region M54.16 Active 361584178 Problem Spinal stenosis, lumbar region without neurogeni c claudication M48.061 Active 33498291 ALLERGIES No Information ENCOUNTERS Encounter Location Date Diagnosis [address] [address] Apr, Depression with anxiety F41.8 [facility] [address] [place] [address] Apr, Primary insomnia F51.[address] [address] Apr, Lumbago of lumbar region with sciatica M 54.40 and Vitamin D deficiency E55.[address] [address] Apr, Vitamin D deficiency E55.[address] [address] Apr, Allergic contact dermatitis due to other agents L23.89 ; Bipolar disorder F31.9 ; Mixed hyperlipidemia E78.2 ; Prediabetes R73.09 ; Vitamin D deficiency E55.9 ; Depression with anxiety F41.8 ; Dizziness R42 ; Other fatigue R53.83 ; Left anterior shoulder pain M25.512 and Left lateral ankle pain M25.[address] [address] Apr, Mixed hyperlipidemia E78.[address] [address] Apr, [address] [address] Apr, Bipolar disorder F31.9 ; Fibromyalgia M7 9.7 ; Depression with anxiety F41.8 ; Lumbago of lumbar region with sciatica M54.40 and Acute left ankle pain M25.[address] [address] Mar, Constipation by delayed colonic transit K59.01 ; Mixed hyperlipidemia E78.2 ; Depression with anxiety F41.8 ; Chronic GERD K21.9 and Bipolar disorder F31.[address] [address] Feb, Abscess L02.[address] [address] Dec, Chronic GERD K21.9 and Mixed hyperlipide sourav E78.[address] [address] Nov, [address] [address] Nov, [address] [address] Oct, Abscess, axilla L02.419 and Lumbago of l umbar region with sciatica M54.[address] [address] Oct, Fall, initial encounter W19.XXXA ; Right hip pain M25.551 ; Pain in pelvis R10.2 ; Right anterior shoulder pain M25.511 ; Left hip pain M25.552 ; Neck pain M54.2 ; Depression with anxiety F41.8 and Shingles B02.[address] [address] Oct, [address] [address] Oct, Sleep apnea in adult G47.[address] [address] Sep, Mixed hyperlipidemia E78.2 ; Prediabetes R73.09 ; Vitamin D deficiency E55.9 ; Fibromyalgia M79.7 ; Chronic GERD K21.9 ; Radiculopathy of lumbar region M54.16 ; Spinal stenosis, lumbar region without neurogenic claudication M48.061 ; Vitamin B 12 deficiency E53.8 ; Depression with anxiety F41.8 ; Cervical pain M54.2 and Hospital discharge follow-up Z09 [address] [address] Sep, [address] [address] Sep, [address] [address] Sep, Post herpetic neuralgia B02.[address] [address] Sep, Mixed hyperlipidemia E78.2 ; Vitamin D [...] R09.81 and GERD with esophagitis K21.0 [facility] [address] [place] [address] Aug, [address] [address] Aug, Depression with anxiety F41.8 and Primar y insomnia F51.[address] [address] 13 Aug, 2018 Chronic GERD K21.[address] [address] Aug, [address] [address] 15 Jul, 2018 Irregular periods N92.6 and Menstrual cr amps N94.[address] [address] 14 Jul, [address] [address] 14 Jul, [address] [address] 12 Jul, 2018 Abscess L02.[address] [address] 06 Jul, 2018 Mixed hyperlipidemia E78.2 ; Chronic ABDOUL D K21.9 and Generalized anxiety disorder F41.[address] [address] 06 Jul, 2018 Well woman exam with routine gynecologic al exam Z01.419 ; Menstrual cramps N94.6 ; Acute left ankle pain M25.572 ; Snoring R06.83 and Excessive daytime sleepiness G47.[address] [address] Jun, Shingles B02.[address] [address] Jun, Pruritic dermatitis L29.9 and Rosacea L7 1.[address] [address] Jun, [address] [place] [address] Jun, [facility] [address] [place] [address] Jun, [facility] [address] [place] [address] Jun, Butterfly rash R21 ; Influenza vaccine n eeded Z23 ; Prediabetes R73.09 ; Mixed hyperlipidemia E78.2 and Vitamin D deficiency E55.9 [facility] [address] [place] [address] Apr, Left ankle swelling M25.472 [facility] [address] [place] [address] Apr, [facility] [address] [place] [address] Apr, [facility] [address] [place] [address] Mar, Edema of left foot R60.0 [facility] [address] [place] [address] Mar, Irritable bowel syndrome with diarrhea K 58.0 [facility] [address] [place] [address] Mar, [facility] [address] [place] [address] Mar, [facility] [address] [place] [address] Mar, [facility] [address] [place] [address] Feb, Irritable bowel syndrome with diarrhea K 58.0 [facility] [address] [place] [address] Feb, [facility] [address] [place] [address], [place] [address] Feb, Irritable bowel syndrome with diarrhea K 58.0 [facility] [address] [place] [address] Feb, control counseling Z30.09 ; Lumbag o with sciatica, left side M54.42 and Chronic GERD K21.9 [facility] [address] [place] [address] Feb, [facility] [address] [place] [address] Feb, [facility] [address] [place] [address] Feb, [facility] [address] [place] [address] Feb, Diarrhea, unspecified type R19.7 [facility] [address] [place] [address] Feb, Abnormal glucose R73.[address] [address] Feb, Abnormal glucose R73.[address] [address] Feb, Reactive airway disease, mild persistent , uncomplicated J45.[address] [address] Feb, Lumbago with sciatica, left side M54.42 ; Cigarette nicotine dependence, uncomplicated F17.210 ; Diarrhea, unspecified type R19.7 and Abnormal glucose R73.[address] [address] January, [address] [address] January, [address] [address] January, [address] [address] January, [address] [address] January, Muscle strain of chest wall, initial enc ounter S29.011A ; Physical exam Z00.00 ; Need for hepatitis vaccination Z23 and Abscess L02.[address] [address] Dec, Left hand pain M79.642 ; Thoracic spine pain M54.6 ; Cervical pain M54.2 and Elevated blood pressure reading R03.[address] [address] Dec, Lumbago with sciatica, left side M54.42 and Decreased hearing of left ear H91.[address] [address] Dec, Other chest pain R07.89 ; Finger pain, l eft M79.645 ; Chronic GERD K21.9 and Muscle strain of chest wall, initial encounter S29.011A [address] [address] Dec, [address] [address] Dec, Other constipation K59.09 ; Irregular pe riods N92.6 and Absent periods N91.[address] [address] Oct, [address] [address] Oct, Weight gain R63.[address] [address] Oct, Generalized anxiety disorder F41.[address] [address] Sep, [address] [address] Sep, Absent periods N91.2 and Decreased heari ng of left ear H91.[address] [address] Sep, [address] [address] Sep, Pre-op exam Z01.818 and Abscess of chest wall L02.[address] [address] Sep, [facility] [address] Sep, Prediabetes R73.09 ; Vitamin D deficienc y E55.9 ; Mixed hyperlipidemia E78.2 and Arthritis of ankle, left M19.[address] [address] Sep, Smoking trying to quit Z72.0 ; Chronic G ERD K21.9 ; Generalized anxiety disorder F41.1 ; Other chest pain R07.89 ; Other constipation K59.09 and Right upper quadrant pain R10.[address] [address] Aug, [address] [address] Aug, Other chronic pain G89.[address] [address] Aug, Mixed hyperlipidemia E78.2 ; Fibromyalgi a M79.7 ; Lumbago of lumbar region with sciatica M54.40 ; History of gestational diabetes Z86.32 ; Prediabetes R73.09 ; Vitamin D deficiency E55.9 ; Weight gain R63.5 ; control counseling Z30.09 ; Pain, dental K08.89 and Flank pain R10.[address] [address] Aug, [address] [address] Jun, Acute left ankle pain M25.[address] [address] Jun, [address] [address] Jun, [address] [address] Jun, Acute left ankle pain M25.[address] [address] Jun, [address] [address] Jun, Acute left ankle pain M25.572 [facility] [address] [place] [address] Jun, Influenza vaccine needed Z23 and Irregul ar periods N92.6 [facility] [address] [place] [address] May, Mixed hyperlipidemia E78.2 [facility] [address] [place] [address] May, [facility] [address] [place] [address] May, Chronic GERD K21.9 [facility] [address] [place] [address] Apr, Weight gain R63.5 [facility] [address] [place] [address] Apr, Chronic GERD K21.9 and Weight gain R63.5 [facility] [address] [place] [address] Mar, Depression with anxiety F41.8 and Chroni c idiopathic constipation K59.09 [facility] [address] [place] [address] Mar, Other chronic pain G89.29 [facility] [address] [place] [address] Mar, Post herpetic neuralgia B02.29 [facility] [address] [place] [address] Mar, Post herpetic neuralgia B02.29 [facility] [address] [place] [address] Mar, [facility] [address] [place] [address] Mar, Other elevated white blood cell (WBC) co unt D72.828 [facility] [address] [place] [address] Mar, Other elevated white blood cell (WBC) co unt D72.828 and Dyslipidemia E78.[address] [address] Feb, [address] [address] Feb, Vitamin D deficiency E55.9 ; Dyslipidemi a E78.5 ; Other elevated white blood cell (WBC) count D72.828 and Skin tag L91.[address] [address] Feb, [address] [address] Feb, Vitamin D deficiency E55.9 and Dyslipide sourav E78.[address] [address] Feb, [address] [address] Feb, Post herpetic neuralgia B02.29 ; Thyroid disorder screen Z13.29 ; Mixed hyperlipidemia E78.2 ; Chronic GERD K21.9 ; Lumbago of lumbar region with sciatica M54.40 ; Prediabetes R73.03 ; Other fatigue R53.83 ; Vitamin D deficiency E55.9 and Vitamin B 12 deficiency E53.[address] [address] Feb, Reactive airway disease, mild persistent , uncomplicated J45.[address] [address] Feb, Chronic GERD K21.[address] [address] Feb, Mixed hyperlipidemia E78.2 and Other chr onic pain G89.[address] [address] Feb, Lumbago with sciatica, left side M54.42 ; Mixed hyperlipidemia E78.2 and Reactive airway disease, mild persistent, uncomplicated J45.[address] [address] Feb, Chronic GERD K21.9 [facility] [address] [place] [address] 19 Feb, 2017 [facility] [address] [place] [address] Feb, [facility] [address] [place] [address] 16 Feb, 2017 Post herpetic neuralgia B02.29 [facility] [address] [place] [address] Feb, Allergic contact dermatitis due to other agents L23.89 and Post herpetic neuralgia B02.29 [facility] [address] [place] [address] Feb, Chronic GERD K21.9 [facility] [address] [place] [address] Feb, Chronic GERD K21.9 [facility] [address] [place] [address] January, Post herpetic neuralgia B02.29 [facility] [address] [place] [address] January, Lumbago with sciatica, left side M54.42 [facility] [address] [place] [address] January, [facility] [address] [place] [address] January, Lumbago of lumbar region with sciatica M 54.40 [facility] [address] [place] [address] January, Other chronic pain G89.29 and Lumbago wi th sciatica, left side M54.42 [facility] [address] [place] [address] January, Depression with anxiety F41.8 [facility] [address] [place] [address] January, Mixed hyperlipidemia E78.2 [facility] [address] [place] [address] January, Abscess of left groin L02.214 [facility] [address] [place] [address] Dec, Depression with anxiety F41.8 [facility] [address] [place] [address] Dec, Irregular periods N92.6 [facility] [address] [place] [address] Nov, Left wrist pain M25.532 and Acute left a nkle pain M25.572 [facility] [address] [place] [address] Nov, Post herpetic neuralgia B02.29 and Absce ss of left groin L02.[address] [address] Sep, Irregular periods N92.[address] [address] Sep, Mixed hyperlipidemia E78.2 ; Flank pain R10.9 and Post herpetic neuralgia B02.[address] [address] Aug, Lumbago of lumbar region with sciatica M 54.40 ; Chronic idiopathic constipation K59.09 ; Depression with anxiety F41.8 and Mixed hyperlipidemia E78.[address] [address] 15 Aug, 2016 Other chronic pain G89.[address] [address] Aug, Reactive airway disease, mild persistent , uncomplicated J45.[address] [address] 07 Aug, [address] [address] 07 Aug, 2016 Cough R05 and Allergic contact dermatiti s due to other agents L23.[address] [address] 05 Aug, 2016 [facility] [address] [place] [address] Jul, Other chronic pain G89.29 [facility] [address] [place] [address] Jul, Upper respiratory tract infection, unspe cified type J06.9 ; Chronic GERD K21.9 ; Acute left ankle pain M25.572 and Lumbago of lumbar region with sciatica M54.[address] [address] Jun, Other chronic pain G89.29 [facility] [address] [place] [address] Jun, [address] [address] Jun, [address] [address] Jun, Chronic GERD K21.[address] [address] Jun, [address] [address] May, Pain in right wrist M25.531 ; Left wrist pain M25.532 ; Acute left ankle pain M25.572 ; Thoracic spine pain M54.6 ; Lumbago with sciatica, left side M54.42 ; Other chronic pain G89.29 and Dysuria R30.[address] [address] May, Chronic GERD K21.[address] [address] May, Chronic GERD K21.[address] [address] May, [address] [address] May, [facility] [address] [place] [address] May, [address] [address] May, [facility] [address] [place] [address] 16 May, 2016 Mixed hyperlipidemia E78.2 ; Fibromyalgi a M79.7 ; Depression with anxiety F41.8 ; Lumbago of lumbar region with sciatica M54.40 ; Encounter to establish care Z76.89 ; Chronic GERD K21.9 ; History of gestational diabetes Z86.32 ; Chronic idiopathic constipation K59.09 ; Thyroid disorder screen Z13.29 and Need for influenza vaccination Z23 [facility] [address] [place] [address] Apr, Gestational diabetes O24.419 [facility] [address] [place] [address] Feb, Gestational diabetes O24.419 IMMUNIZATIONS No Known Immunizations SOCIAL HISTORY Never Assessed REASON FOR VISIT PLAN OF CARE VITAL SIGNS MEDICATIONS Medication Instructions Dosage Frequency Start Date End Date Duration S tatus Cyclobenzaprine HCl 10 MG TAKE 1 TABLET BY MOUTH THREE (3) T IMES DAILY 10 Active Sertraline HCl 100 MG Orally Once a day 2 tablet 24h 30 days Active RESULTS No Results PROCEDURES [...] Fused L ankle 09/[address] [facility]- Hyperglycemia and February 2016 Hospitalization History Ankle surgery 09/2017
--- OUTSIDE RECORDS SUMMARY | 2020-03-15 21:20 | XMS REPORT ---
Author Author Solange Sultana [facility] Address [address], [place] [id number] Care Team Providers Care Manager [employer] Name Role Phone Kodi LoweryPhyllisFelisha Unavailable PROBLEMS Type Condition ICD9-CM Code GZZ16-JL Code Onset Dates Condition S tatus SNOMED Code Problem Gestational diabetes O24.419 Active 33357541 Problem Prediabetes R73.09 Active 51863998 2 Problem History of gestational diabetes Z86.32 Active 139652203 Problem Depression with anxiety F41.8 Active 465421327 Problem Fibromyalgia M79.7 Active 7821433 05 Problem Abscess, axilla L02.419 Active 1380 2001 Problem Mild persistent asthma without complication J45.30 Active 919285795 Problem Lumbago with sciatica, left side M54.42 Active 873748977 Problem Thoracic spine pain M54.6 Active 999751881 Problem Other chronic pain G89.29 Active 8 5651083 Problem Pain in right wrist M25.531 Active 77425234 Problem Plantar fasciitis M72.2 Active 20 1920977 Problem Left wrist pain M25.532 Active 5660 8008 Problem Chronic GERD K21.9 Active 7929678 09 Problem Mixed hyperlipidemia E78.2 Active 938288115 Problem Lumbago of lumbar region with sciatica M54.40 Active 07947767 Problem Chronic idiopathic constipation K59.09 Active 35185025 Problem Acute left ankle pain M25.572 Active 41474714777966 Problem Vitamin D deficiency E55.9 Active 70129179 Problem Other elevated white blood cell (WBC) count D72.82 8 Active 891405833 Problem Other fatigue R53.83 Active 548811 01 Problem Absent periods N91.2 Active 20307 001 Problem Generalized anxiety disorder F41.1 A ctive 77291498 Problem Cervical pain M54.2 Active 202091 05 Problem Decreased hearing of left ear H91.92 Active 60567130 Problem Post herpetic neuralgia B02.29 Active 5906430 Problem Reactive airway disease, mild persistent, uncomplicated J45.30 Active 488645423113 Problem Prediabetes R73.03 Active 30265461 2 Problem Irregular periods N92.6 Active 80 020615 Problem Rosacea L71.9 Active 844537482 Problem Irritable bowel syndrome with diarrhea K58.0 Active 766644524 Problem Menstrual cramps N94.6 Active 431 991966 Problem Excessive daytime sleepiness G47.19 A ctive 546469668867 Problem Constipation by delayed colonic transit K59.01 Active 98696214 Problem Primary insomnia F51.01 Active 397 2004 Problem Vitamin B 12 deficiency E53.8 Active 329054122 Problem GERD with esophagitis K21.0 Active 282700000 Problem Pain in pelvis R10.2 Active 40241 006 Problem Right hip pain M25.551 Active 49319 1694623054 Problem Neck pain M54.2 Active 17997737 Problem Sleep apnea in adult G47.30 Active 34355606 Problem Elevated blood pressure reading R03.0 Active 37717489 Problem Bipolar disorder F31.9 Active 137 71369 Problem Left hand pain M79.642 Active 62763 4577350256 Problem Cigarette nicotine dependence, uncomplicated F17.2 10 Active 91864161 Problem Left hip pain M25.552 Active 357984 02 Problem Right anterior shoulder pain M25.511 A ctive 67026310 Problem Radiculopathy of lumbar region M54.16 Active 475252644 Problem Spinal stenosis, lumbar region without neurogeni c claudication M48.061 Active 63971553 ALLERGIES No Information ENCOUNTERS Encounter Location Date Diagnosis [address] [address] Apr, Depression with anxiety F41.8 [facility] [address] [place] [address] Apr, Primary insomnia F51.[address] [address] Apr, Lumbago of lumbar region with sciatica M 54.40 and Vitamin D deficiency E55.[address] [address] Apr, Vitamin D deficiency E55.[address] [address] Apr, Allergic contact dermatitis due to other agents L23.89 ; Bipolar disorder F31.9 ; Mixed hyperlipidemia E78.2 ; Prediabetes R73.09 ; Vitamin D deficiency E55.9 ; Depression with anxiety F41.8 ; Dizziness R42 ; Other fatigue R53.83 ; Left anterior shoulder pain M25.512 and Left lateral ankle pain M25.[address] [address] Apr, Mixed hyperlipidemia E78.[address] [address] Apr, [address] [address] Apr, Bipolar disorder F31.9 ; Fibromyalgia M7 9.7 ; Depression with anxiety F41.8 ; Lumbago of lumbar region with sciatica M54.40 and Acute left ankle pain M25.[address] [address] Mar, Constipation by delayed colonic transit K59.01 ; Mixed hyperlipidemia E78.2 ; Depression with anxiety F41.8 ; Chronic GERD K21.9 and Bipolar disorder F31.[address] [address] Feb, Abscess L02.[address] [address] Dec, Chronic GERD K21.9 and Mixed hyperlipide sourav E78.[address] [address] Nov, [address] [address] Nov, [address] [address] Oct, Abscess, axilla L02.419 and Lumbago of l umbar region with sciatica M54.[address] [address] Oct, Fall, initial encounter W19.XXXA ; Right hip pain M25.551 ; Pain in pelvis R10.2 ; Right anterior shoulder pain M25.511 ; Left hip pain M25.552 ; Neck pain M54.2 ; Depression with anxiety F41.8 and Shingles B02.[address] [address] Oct, [address] [address] Oct, Sleep apnea in adult G47.[address] [address] Sep, Mixed hyperlipidemia E78.2 ; Prediabetes R73.09 ; Vitamin D deficiency E55.9 ; Fibromyalgia M79.7 ; Chronic GERD K21.9 ; Radiculopathy of lumbar region M54.16 ; Spinal stenosis, lumbar region without neurogenic claudication M48.061 ; Vitamin B 12 deficiency E53.8 ; Depression with anxiety F41.8 ; Cervical pain M54.2 and Hospital discharge follow-up Z09 [address] [address] Sep, [address] [address] Sep, [address] [address] Sep, Post herpetic neuralgia B02.[address] [address] Sep, Mixed hyperlipidemia E78.2 ; Vitamin D [...] R09.81 and GERD with esophagitis K21.0 [facility] [address] [place] [address] Aug, [address] [address] Aug, Depression with anxiety F41.8 and Primar y insomnia F51.[address] [address] 13 Aug, 2018 Chronic GERD K21.[address] [address] Aug, [address] [address] 15 Jul, 2018 Irregular periods N92.6 and Menstrual cr amps N94.[address] [address] 14 Jul, [address] [address] 14 Jul, [address] [address] 12 Jul, 2018 Abscess L02.[address] [address] 06 Jul, 2018 Mixed hyperlipidemia E78.2 ; Chronic ABDOUL D K21.9 and Generalized anxiety disorder F41.[address] [address] 06 Jul, 2018 Well woman exam with routine gynecologic al exam Z01.419 ; Menstrual cramps N94.6 ; Acute left ankle pain M25.572 ; Snoring R06.83 and Excessive daytime sleepiness G47.[address] [address] Jun, Shingles B02.[address] [address] Jun, Pruritic dermatitis L29.9 and Rosacea L7 1.[address] [address] Jun, [address] [place] [address] Jun, [facility] [address] [place] [address] Jun, [facility] [address] [place] [address] Jun, Butterfly rash R21 ; Influenza vaccine n eeded Z23 ; Prediabetes R73.09 ; Mixed hyperlipidemia E78.2 and Vitamin D deficiency E55.9 [facility] [address] [facility] [place] [address] Apr, Left ankle swelling M25.472 [facility] [address] [place] [address] Apr, [facility] [address] [place] [address] Apr, [facility] [address] [place] [address] Mar, Edema of left foot R60.0 [facility] [address] [place] [address] Mar, Irritable bowel syndrome with diarrhea K 58.0 [facility] [address] [place] [address] Mar, [facility] [address] [place] [address] Mar, [facility] [address] [place] [address] Mar, [facility] [address] [place] [address] Feb, Irritable bowel syndrome with diarrhea K 58.0 [facility] [address] [facility] [place] [address] Feb, [facility] [address] [place] [address], [place] [address] Feb, Irritable bowel syndrome with diarrhea K 58.0 [facility] [address] [place] [address] Feb, control counseling Z30.09 ; Lumbag o with sciatica, left side M54.42 and Chronic GERD K21.9 [facility] [address] [place] [address] Feb, [facility] [address] [place] [address] Feb, [facility] [address] [place] [address] Feb, [facility] [address] [place] [address] Feb, Diarrhea, unspecified type R19.7 [facility] [address] [place] [address] Feb, Abnormal glucose R73.[address] [address] Feb, Abnormal glucose R73.[address] [address] Feb, Reactive airway disease, mild persistent , uncomplicated J45.[address] [address] Feb, Lumbago with sciatica, left side M54.42 ; Cigarette nicotine dependence, uncomplicated F17.210 ; Diarrhea, unspecified type R19.7 and Abnormal glucose R73.[address] [address] January, [address] [address] January, [address] [address] January, [address] [address] January, [address] [address] January, Muscle strain of chest wall, initial enc ounter S29.011A ; Physical exam Z00.00 ; Need for hepatitis vaccination Z23 and Abscess L02.[address] [address] Dec, Left hand pain M79.642 ; Thoracic spine pain M54.6 ; Cervical pain M54.2 and Elevated blood pressure reading R03.[address] [address] Dec, Lumbago with sciatica, left side M54.42 and Decreased hearing of left ear H91.[address] [address] Dec, Other chest pain R07.89 ; Finger pain, l eft M79.645 ; Chronic GERD K21.9 and Muscle strain of chest wall, initial encounter S29.011A [address] [address] Dec, [address] [address] Dec, Other constipation K59.09 ; Irregular pe riods N92.6 and Absent periods N91.[address] [address] Oct, [address] [address] Oct, Weight gain R63.[address] [address] Oct, Generalized anxiety disorder F41.[address] [address] Sep, [address] [address] Sep, Absent periods N91.2 and Decreased heari ng of left ear H91.[address] [address] Sep, [address] [address] Sep, Pre-op exam Z01.818 and Abscess of chest wall L02.[address] [address] Sep, [facility] [address] Sep, Prediabetes R73.09 ; Vitamin D deficienc y E55.9 ; Mixed hyperlipidemia E78.2 and Arthritis of ankle, left M19.[address] [address] Sep, Smoking trying to quit Z72.0 ; Chronic G ERD K21.9 ; Generalized anxiety disorder F41.1 ; Other chest pain R07.89 ; Other constipation K59.09 and Right upper quadrant pain R10.[address] [address] Aug, [address] [address] Aug, Other chronic pain G89.[address] [address] Aug, Mixed hyperlipidemia E78.2 ; Fibromyalgi a M79.7 ; Lumbago of lumbar region with sciatica M54.40 ; History of gestational diabetes Z86.32 ; Prediabetes R73.09 ; Vitamin D deficiency E55.9 ; Weight gain R63.5 ; control counseling Z30.09 ; Pain, dental K08.89 and Flank pain R10.[address] [address] Aug, [address] [address] Jun, Acute left ankle pain M25.[address] [address] Jun, [address] [address] Jun, [address] [address] Jun, Acute left ankle pain M25.[address] [address] Jun, [address] [address] Jun, Acute left ankle pain M25.572 [facility] [address] [place] [address] Jun, Influenza vaccine needed Z23 and Irregul ar periods N92.6 [facility] [address] [place] [address] May, Mixed hyperlipidemia E78.2 [facility] [address] [place] [address] May, [facility] [address] [place] [address] May, Chronic GERD K21.9 [facility] [address] [place] [address] Apr, Weight gain R63.5 [facility] [address] [place] [address] Apr, Chronic GERD K21.9 and Weight gain R63.5 [facility] [address] [place] [address] Mar, Depression with anxiety F41.8 and Chroni c idiopathic constipation K59.09 [facility] [address] [place] [address] Mar, Other chronic pain G89.29 [facility] [address] [place] [address] Mar, Post herpetic neuralgia B02.29 [facility] [address] [place] [address] Mar, Post herpetic neuralgia B02.29 [facility] [address] [place] [address] Mar, [facility] [address] [place] [address] Mar, Other elevated white blood cell (WBC) co unt D72.828 [facility] [address] [place] [address] Mar, Other elevated white blood cell (WBC) co unt D72.828 and Dyslipidemia E78.[address] [address] Feb, [address] [address] Feb, Vitamin D deficiency E55.9 ; Dyslipidemi a E78.5 ; Other elevated white blood cell (WBC) count D72.828 and Skin tag L91.[address] [address] Feb, [address] [address] Feb, Vitamin D deficiency E55.9 and Dyslipide sourav E78.[address] [address] Feb, [address] [address] Feb, Post herpetic neuralgia B02.29 ; Thyroid disorder screen Z13.29 ; Mixed hyperlipidemia E78.2 ; Chronic GERD K21.9 ; Lumbago of lumbar region with sciatica M54.40 ; Prediabetes R73.03 ; Other fatigue R53.83 ; Vitamin D deficiency E55.9 and Vitamin B 12 deficiency E53.[address] [address] Feb, Reactive airway disease, mild persistent , uncomplicated J45.[address] [address] Feb, Chronic GERD K21.[address] [address] Feb, Mixed hyperlipidemia E78.2 and Other chr onic pain G89.[address] [address] Feb, Lumbago with sciatica, left side M54.42 ; Mixed hyperlipidemia E78.2 and Reactive airway disease, mild persistent, uncomplicated J45.[address] [address] Feb, Chronic GERD K21.9 [facility] [address] [place] [address] 19 Feb, 2017 [facility] [address] [place] [address] Feb, [facility] [address] [place] [address] 16 Feb, 2017 Post herpetic neuralgia B02.29 [facility] [address] [place] [address] Feb, Allergic contact dermatitis due to other agents L23.89 and Post herpetic neuralgia B02.29 [facility] [address] [place] [address] Feb, Chronic GERD K21.9 [facility] [address] [place] [address] Feb, Chronic GERD K21.9 [facility] [address] [place] [address] January, Post herpetic neuralgia B02.29 [facility] [address] [place] [address] January, Lumbago with sciatica, left side M54.42 [facility] [address] [place] [address] January, [facility] [address] [place] [address] January, Lumbago of lumbar region with sciatica M 54.40 [facility] [address] [place] [address] January, Other chronic pain G89.29 and Lumbago wi th sciatica, left side M54.42 [facility] [address] [place] [address] January, Depression with anxiety F41.8 [facility] [address] [place] [address] January, Mixed hyperlipidemia E78.2 [facility] [address] [place] [address] January, Abscess of left groin L02.214 [facility] [address] [place] [address] Dec, Depression with anxiety F41.8 [facility] [address] [place] [address] Dec, Irregular periods N92.6 [facility] [address] [place] [address] Nov, Left wrist pain M25.532 and Acute left a nkle pain M25.572 [facility] [address] [place] [address] Nov, Post herpetic neuralgia B02.29 and Absce ss of left groin L02.[address] [address] Sep, Irregular periods N92.[address] [address] Sep, Mixed hyperlipidemia E78.2 ; Flank pain R10.9 and Post herpetic neuralgia B02.[address] [address] Aug, Lumbago of lumbar region with sciatica M 54.40 ; Chronic idiopathic constipation K59.09 ; Depression with anxiety F41.8 and Mixed hyperlipidemia E78.[address] [address] 15 Aug, 2016 Other chronic pain G89.[address] [address] Aug, Reactive airway disease, mild persistent , uncomplicated J45.[address] [address] 07 Aug, [address] [address] 07 Aug, 2016 Cough R05 and Allergic contact dermatiti s due to other agents L23.[address] [address] 05 Aug, 2016 [facility] [address] [place] [address] Jul, Other chronic pain G89.29 [facility] [address] [place] [address] Jul, Upper respiratory tract infection, unspe cified type J06.9 ; Chronic GERD K21.9 ; Acute left ankle pain M25.572 and Lumbago of lumbar region with sciatica M54.[address] [address] Jun, Other chronic pain G89.29 [facility] [address] [place] [address] Jun, [address] [address] Jun, [address] [address] Jun, Chronic GERD K21.[address] [address] Jun, [address] [address] May, Pain in right wrist M25.531 ; Left wrist pain M25.532 ; Acute left ankle pain M25.572 ; Thoracic spine pain M54.6 ; Lumbago with sciatica, left side M54.42 ; Other chronic pain G89.29 and Dysuria R30.[address] [address] May, Chronic GERD K21.[address] [address] May, Chronic GERD K21.[address] [address] May, [address] [address] May, [facility] [address] [place] [address] May, [address] [address] May, [facility] [address] [place] [address] 16 May, 2016 Mixed hyperlipidemia E78.2 ; Fibromyalgi a M79.7 ; Depression with anxiety F41.8 ; Lumbago of lumbar region with sciatica M54.40 ; Encounter to establish care Z76.89 ; Chronic GERD K21.9 ; History of gestational diabetes Z86.32 ; Chronic idiopathic constipation K59.09 ; Thyroid disorder screen Z13.29 and Need for influenza vaccination Z23 [facility] [address] [place] [address] Apr, Gestational diabetes O24.419 [facility] [address] [place] [address] Feb, Gestational diabetes O24.419 IMMUNIZATIONS No Known Immunizations SOCIAL HISTORY Never Assessed REASON FOR VISIT PLAN OF CARE VITAL SIGNS MEDICATIONS Medication Instructions Dosage Frequency Start Date End Date Duration S tatus Quetiapine Fumarate 25 MG Orally Once a day 2 tablets at bedtime 24 h Aug, 30 day(s) Active RESULTS No Results PROCEDURES [...] 09/[address] [facility]- Hyperglycemia and February 2016 Hospitalization History Ankle surgery 09/2017
--- OUTSIDE RECORDS SUMMARY | 2020-03-15 21:21 | XMS REPORT ---
Author Author Solange Sultana [facility] Address [address], [place] [id number] Care Team Providers [employer] Sales Name Role Phone Kodi LoweryPhyllisFelisha Unavailable PROBLEMS Type Condition ICD9-CM Code [id number] Code Onset Dates Condition S tatus SNOMED Code Problem Gestational diabetes O24.419 Active 58248588 Problem Prediabetes R73.09 Active 34423896 2 Problem History of gestational diabetes Z86.32 Active 080344882 Problem Depression with anxiety F41.8 Active 695759437 Problem Fibromyalgia M79.7 Active 5372984 05 Problem Abscess, axilla L02.419 Active 1380 2001 Problem Mild persistent asthma without complication J45.30 Active 481957423 Problem Lumbago with sciatica, left side M54.42 Active 951659229 Problem Thoracic spine pain M54.6 Active 006938768 Problem Other chronic pain G89.29 Active 8 4932477 Problem Pain in right wrist M25.531 Active 20589383 Problem Plantar fasciitis M72.2 Active 20 6327399 Problem Left wrist pain M25.532 Active 5660 8008 Problem Chronic GERD K21.9 Active 0924532 09 Problem Mixed hyperlipidemia E78.2 Active 950386629 Problem Lumbago of lumbar region with sciatica M54.40 Active 69536123 Problem Chronic idiopathic constipation K59.09 Active 89556486 Problem Acute left ankle pain M25.572 Active 77768455913860 Problem Vitamin D deficiency E55.9 Active 91917410 Problem Other elevated white blood cell (WBC) count D72.82 8 Active 186342684 Problem Other fatigue R53.83 Active 290211 01 Problem Absent periods N91.2 Active 66582 001 Problem Generalized anxiety disorder F41.1 A ctive 05124072 Problem Cervical pain M54.2 Active 084365 05 Problem Decreased hearing of left ear H91.92 Active 04339744 Problem Post herpetic neuralgia B02.29 Active 9621994 Problem Reactive airway disease, mild persistent, uncomplicated J45.30 Active 983492020146 Problem Prediabetes R73.03 Active 13363568 2 Problem Irregular periods N92.6 Active 80 951378 Problem Rosacea L71.9 Active 789746916 Problem Irritable bowel syndrome with diarrhea K58.0 Active 245466954 Problem Menstrual cramps N94.6 Active 431 133639 Problem Excessive daytime sleepiness G47.19 A ctive 156025051978 Problem Constipation by delayed colonic transit K59.01 Active 31258503 Problem Primary insomnia F51.01 Active 397 2004 Problem Vitamin B 12 deficiency E53.8 Active 873988204 Problem GERD with esophagitis K21.0 Active 716641284 Problem Pain in pelvis R10.2 Active 18951 006 Problem Right hip pain M25.551 Active 55566 7097929782 Problem Neck pain M54.2 Active 25225922 Problem Sleep apnea in adult G47.30 Active 39389480 Problem Elevated blood pressure reading R03.0 Active 39031329 Problem Bipolar disorder F31.9 Active 137 43289 Problem Left hand pain M79.642 Active 27645 2765238352 Problem Cigarette nicotine dependence, uncomplicated F17.2 10 Active 38975913 Problem Left hip pain M25.552 Active 287371 02 Problem Right anterior shoulder pain M25.511 A ctive 73156821 Problem Radiculopathy of lumbar region M54.16 Active 686634489 Problem Spinal stenosis, lumbar region without neurogeni c claudication M48.061 Active 48426736 ALLERGIES Substance Reaction Event Type Date Status Hydrocodone-Acetaminophen vomitting Drug Allergy Apr, Ac tive all medical tape rash Non Drug Allergy Apr, Active latex rash Non Drug Allergy Apr, Active Oxycodone HCl vomitting Drug Allergy Apr, Active ENCOUNTERS Encounter Location Date Diagnosis [address] [address] Apr, Lumbago of lumbar region with sciatica M 54.40 and Vitamin D deficiency E55.9 [facility] [address] [place] [address] Apr, Vitamin D deficiency E55.[address] [address] Apr, Allergic contact dermatitis due to other agents L23.89 ; Bipolar disorder F31.9 ; Mixed hyperlipidemia E78.2 ; Prediabetes R73.09 ; Vitamin D deficiency E55.9 ; Depression with anxiety F41.8 ; Dizziness R42 ; Other fatigue R53.83 ; Left anterior shoulder pain M25.512 and Left lateral ankle pain M25.[address] [address] Apr, Mixed hyperlipidemia E78.[address] [address] Apr, [address] [address] Apr, Bipolar disorder F31.9 ; Fibromyalgia M7 9.7 ; Depression with anxiety F41.8 ; Lumbago of lumbar region with sciatica M54.40 and Acute left ankle pain M25.[address] [address] Mar, Constipation by delayed colonic transit K59.01 ; Mixed hyperlipidemia E78.2 ; Depression with anxiety F41.8 ; Chronic GERD K21.9 and Bipolar disorder F31.[address] [address] Feb, Abscess L02.[address] [address] Dec, Chronic GERD K21.9 and Mixed hyperlipide sourav E78.[address] [address] Nov, [address] [address] Nov, [address] [address] Oct, Abscess, axilla L02.419 and Lumbago of l umbar region with sciatica M54.[address] [address] Oct, Fall, initial encounter W19.XXXA ; Right hip pain M25.551 ; Pain in pelvis R10.2 ; Right anterior shoulder pain M25.511 ; Left hip pain M25.552 ; Neck pain M54.2 ; Depression with anxiety F41.8 and Shingles B02.[address] [address] Oct, [address] [address] Oct, Sleep apnea in adult G47.[address] [address] Sep, Mixed hyperlipidemia E78.2 ; Prediabetes R73.09 ; Vitamin D deficiency E55.9 ; Fibromyalgia M79.7 ; Chronic GERD K21.9 ; Radiculopathy of lumbar region M54.16 ; Spinal stenosis, lumbar region without neurogenic claudication M48.061 ; Vitamin B 12 deficiency E53.8 ; Depression with anxiety F41.8 ; Cervical pain M54.2 and Hospital discharge follow-up Z09 [address] [address] Sep, [address] [address] Sep, [address] [address] Sep, Post herpetic neuralgia B02.[address] [address] Sep, Mixed hyperlipidemia E78.2 ; Vitamin D [...] congestion R09.81 and GERD with esophagitis K21.[address] [facility] [address] [place] [address] Aug, [facility] [address] [place] [address] Aug, Depression with anxiety F41.8 and Primar y insomnia F51.[address] [facility] [address] [place] [address] Aug, Chronic GERD K21.[address] [facility] [address] [place] [address] Aug, [facility] [address] [place] [address] 15 Jul, 2018 Irregular periods N92.6 and Menstrual cr amps N94.[address] [address] 14 Jul, [address] [address] 14 Jul, [address] [facility] [address] [place] [address] 12 Jul, 2018 Abscess L02.[address] [address] 06 Jul, 2018 Mixed hyperlipidemia E78.2 ; Chronic ABDOUL D K21.9 and Generalized anxiety disorder F41.[address] [address] 06 Jul, 2018 Well woman exam with routine gynecologic al exam Z01.419 ; Menstrual cramps N94.6 ; Acute left ankle pain M25.572 ; Snoring R06.83 and Excessive daytime sleepiness G47.[address] [facility] [address] [place] [address] Jun, Shingles B02.[address] [address] Jun, Pruritic dermatitis L29.9 and Rosacea L7 1.[address] [facility] [address] [place] [address] Jun, [facility] [address] [place] [address] Jun, [facility] [address] [place] [address] Jun, [facility] [address] [place] [address] Jun, Butterfly rash R21 ; Influenza vaccine n eeded Z23 ; Prediabetes R73.09 ; Mixed hyperlipidemia E78.2 and Vitamin D deficiency E55.9 [facility] [address] [place] [address] Apr, Left ankle swelling M25.472 [facility] [address] [place] [address], [place] [address] Apr, [facility] [address] [place] [address] Apr, [facility] [address] [place] [address] Mar, Edema of left foot R60.0 [facility] [address] [place] [address] Mar, Irritable bowel syndrome with diarrhea K 58.0 [facility] [address] [place] [address] Mar, [facility] [address] [place] [address] Mar, [facility] [address] [place] [address] Mar, [facility] [address] [place] [address] Feb, Irritable bowel syndrome with diarrhea K 58.0 [facility] [address] [place] [address] Feb, [facility] [address] [place] [address] Feb, Irritable bowel syndrome with diarrhea K 58.0 [facility] [address] [place] [address], [place] [address] Feb, control counseling Z30.09 ; Lumbag o with sciatica, left side M54.42 and Chronic GERD K21.9 [facility] [address] [place] [address] Feb, [facility] [address] [place] [address] Feb, [facility] [address] [place] [address] Feb, [facility] [address] [place] [address] Feb, Diarrhea, unspecified type R19.[address] [facility] [address] [place] [address] Feb, Abnormal glucose R73.[address] [address] Feb, Abnormal glucose R73.[address] [address] Feb, Reactive airway disease, mild persistent , uncomplicated J45.[address] [address] Feb, Lumbago with sciatica, left side M54.42 ; Cigarette nicotine dependence, uncomplicated F17.210 ; Diarrhea, unspecified type R19.7 and Abnormal glucose R73.[address] [address] January, [address] [address] January, [address] [address] January, [address] [address] January, [address] [address] January, Muscle strain of chest wall, initial enc ounter S29.011A ; Physical exam Z00.00 ; Need for hepatitis vaccination Z23 and Abscess L02.[address] [address] Dec, Left hand pain M79.642 ; Thoracic spine pain M54.6 ; Cervical pain M54.2 and Elevated blood pressure reading R03.[address] [address] Dec, Lumbago with sciatica, left side M54.42 and Decreased hearing of left ear H91.[address] [address] Dec, Other chest pain R07.89 ; Finger pain, l eft M79.645 ; Chronic GERD K21.9 and Muscle strain of chest wall, initial encounter S29.011A [address] [address] Dec, [address] [address] Dec, Other constipation K59.09 ; Irregular pe riods N92.6 and Absent periods N91.[address] [address] Oct, [address] [address] Oct, Weight gain R63.[address] [address] Oct, Generalized anxiety disorder F41.[address] [address] Sep, [address] [address] Sep, Absent periods N91.2 and Decreased heari ng of left ear H91.[address] [address] Sep, [address] [address] Sep, Pre-op exam Z01.818 and Abscess of chest wall L02.[address] [address] Sep, [address] [address] Sep, Prediabetes R73.09 ; Vitamin D deficienc y E55.9 ; Mixed hyperlipidemia E78.2 and Arthritis of ankle, left M19.[address] [address] Sep, Smoking trying to quit Z72.0 ; Chronic G ERD K21.9 ; Generalized anxiety disorder F41.1 ; Other chest pain R07.89 ; Other constipation K59.09 and Right upper quadrant pain R10.[address] [address] Aug, [address] [address] Aug, Other chronic pain G89.[address] [address] Aug, Mixed hyperlipidemia E78.2 ; Fibromyalgi a M79.7 ; Lumbago of lumbar region with sciatica M54.40 ; History of gestational diabetes Z86.32 ; Prediabetes R73.09 ; Vitamin D deficiency E55.9 ; Weight gain R63.5 ; control counseling Z30.09 ; Pain, dental K08.89 and Flank pain R10.[address] [address] Aug, [address] [address] Jun, Acute left ankle pain M25.[address] [address] Jun, [address] [address] Jun, [address] [address] Jun, Acute left ankle pain M25.[address] [address] Jun, [address] [address] Jun, Acute left ankle pain M25.[address] [facility] [address] [place] [address] Jun, Influenza vaccine needed Z23 and Irregul ar periods N92.[address] [facility] [address] [place] [address] May, Mixed hyperlipidemia E78.[address] [facility] [address] [place] [address] May, [facility] [address] [place] [address] May, Chronic GERD K21.9 [facility] [address] [place] [address] Apr, Weight gain R63.[address] [facility] [address] [place] [address] Apr, Chronic GERD K21.9 and Weight gain R63.[address] [facility] [address] [place] [address] Mar, Depression with anxiety F41.8 and Chroni c idiopathic constipation K59.[address] [facility] [address] [place] [address] Mar, Other chronic pain G89.29 [facility] [address] [place] [address] Mar, Post herpetic neuralgia B02.29 [facility] [address] [place] [address] Mar, Post herpetic neuralgia B02.29 [facility] [address] [place] [address] Mar, [facility] [address] [place] [address] Mar, Other elevated white blood cell (WBC) co unt D72.828 [facility] [address] [place] [address] Mar, Other elevated white blood cell (WBC) co unt D72.828 and Dyslipidemia E78.[address] [facility] [address] [place] [address] Feb, [address] [address] Feb, Vitamin D deficiency E55.9 ; Dyslipidemi a E78.5 ; Other elevated white blood cell (WBC) count D72.828 and Skin tag L91.[address] [address] Feb, [address] [address] Feb, Vitamin D deficiency E55.9 and Dyslipide sourav E78.[address] [address] Feb, [address] [address] Feb, Post herpetic neuralgia B02.29 ; Thyroid disorder screen Z13.29 ; Mixed hyperlipidemia E78.2 ; Chronic GERD K21.9 ; Lumbago of lumbar region with sciatica M54.40 ; Prediabetes R73.03 ; Other fatigue R53.83 ; Vitamin D deficiency E55.9 and Vitamin B 12 deficiency E53.[address] [address] Feb, Reactive airway disease, mild persistent , uncomplicated J45.[address] [address] Feb, Chronic GERD K21.[address] [address] Feb, Mixed hyperlipidemia E78.2 and Other chr onic pain G89.[address] [address] Feb, Lumbago with sciatica, left side M54.42 ; Mixed hyperlipidemia E78.2 and Reactive airway disease, mild persistent, uncomplicated J45.[address] [address] Feb, Chronic GERD K21.[address] [address] Feb, [facility] [address] [place] [address] Feb, [facility] [address] [place] [address] Feb, Post herpetic neuralgia B02.29 [facility] [address] [place] [address] Feb, Allergic contact dermatitis due to other agents L23.89 and Post herpetic neuralgia B02.29 [facility] [address] [place] [address] Feb, Chronic GERD K21.9 [facility] [address] [place] [address] Feb, Chronic GERD K21.9 [facility] [address] [place] [address] January, Post herpetic neuralgia B02.29 [facility] [address] [place] [address] January, Lumbago with sciatica, left side M54.[address] [facility] [address] [place] [address] January, [facility] [address] [place] [address] January, Lumbago of lumbar region with sciatica M 54.[address] [address] January, Other chronic pain G89.29 and Lumbago wi th sciatica, left side M54.42 [facility] [address] [place] [address] January, Depression with anxiety F41.[address] [address] January, Mixed hyperlipidemia E78.[address] [facility] [address] [place] [address] January, Abscess of left groin L02.[address] [place] [address] Dec, Depression with anxiety F41.[address] [address] Dec, Irregular periods N92.6 [facility] [address] [place] [address] Nov, Left wrist pain M25.532 and Acute left a nkle pain M25.[address] [address] Nov, Post herpetic neuralgia B02.29 and Absce ss of left groin L02.[address] [address] Sep, Irregular periods N92.[address] [address] Sep, Mixed hyperlipidemia E78.2 ; Flank pain R10.9 and Post herpetic neuralgia B02.[address] [address] Aug, Lumbago of lumbar region with sciatica M 54.40 ; Chronic idiopathic constipation K59.09 ; Depression with anxiety F41.8 and Mixed hyperlipidemia E78.[address] [address] Aug, Other chronic pain G89.[address] [address] Aug, Reactive airway disease, mild persistent , uncomplicated J45.[address] [address] Aug, [address] [address] Aug, Cough R05 and Allergic contact dermatiti s due to other agents L23.[address] [address] Aug, [address] [address] Jul, Other chronic pain G89.29 [facility] [address] [place] [address] Jul, Upper respiratory tract infection, unspe cified type J06.9 ; Chronic GERD K21.9 ; Acute left ankle pain M25.572 and Lumbago of lumbar region with sciatica M54.[address] [facility] [address] [place] [address] Jun, Other chronic pain G89.29 [facility] [address] [place] [address] Jun, [facility] [address] [place] [address] Jun, [facility] [address] [place] [address] Jun, Chronic GERD K21.[address] [address] Jun, [facility] [address] [place] [address] 30 May, 2016 Pain in right wrist M25.531 ; Left wrist pain M25.532 ; Acute left ankle pain M25.572 ; Thoracic spine pain M54.6 ; Lumbago with sciatica, left side M54.42 ; Other chronic pain G89.29 and Dysuria R30.[address] [facility] [address] [place] [address] May, Chronic GERD K21.[address] [facility] [address] [place] [address] May, Chronic GERD K21.9 [facility] [address] [place] [address] May, [facility] [address] [place] [address] May, [facility] [address] [place] [address] 16 May, [address] [facility] [address] [place] [address] May, [facility] [address] [place] [address] 16 May, 2016 Mixed hyperlipidemia E78.2 ; Fibromyalgi a M79.7 ; Depression with anxiety F41.8 ; Lumbago of lumbar region with sciatica M54.40 ; Encounter to establish care Z76.89 ; Chronic GERD K21.9 ; History of gestational diabetes Z86.32 ; Chronic idiopathic constipation K59.09 ; Thyroid disorder screen Z13.29 and Need for influenza vaccination Z23 [facility] [address] [place] [phone] Apr, Gestational diabetes O24.419 [facility] [address] [place] [address] Feb, Gestational diabetes O24.419 IMMUNIZATIONS No Known Immunizations SOCIAL HISTORY Never Assessed REASON FOR VISIT PLAN OF CARE Activity Details Follow Up 3 Months, prn Reason: VITAL SIGNS Height 69.5 in 2019-05-15 Weight 333 lbs 2019-05-15 Heart Rate 77 /min 2019-05-15 Respiratory Rate 17 /min 2019-05-15 Oximetry 94 % 2019-05-15 BMI 48.47 kg/m2 2019-05-15 Blood pressure systolic 131 mm Hg 2019-05-15 Blood pressure diastolic 66 mm Hg 2019-05-15 MEDICATIONS Medication Instructions Dosage Frequency Start Date End Date Duration S tatus Tramadol HCl 50 MG Orally Three times daily take 1-2 tablet by mouth three times daily 30 Active Gabapentin 800 MG Orally QID 1 tablet 6h Ac tive Pravastatin Sodium 20 MG TAKE 1 TABLET BY MOUTH ONCE DAILY A T BEDTIME 90 Active Multivitamin Adult - Act nancy Dicyclomine HCl 20 MG Orally Four times a day 1 tablet 6h 30 day(s) Active Dexilant 60 MG Orally Once a day 1 capsule 24h Sep, 30 day(s) Active Nortriptyline HCl 25 MG Orally QHS 1 capsule 30 Active Triamcinolone Acetonide 0.1 % Externally Twice a day 1 appli cation to affected area 12h Apr, 10 days Active Abilify 10 MG Orally Once a day 1 tablet 24h Sep, 30 day(s) Active Pantoprazole Sodium 40 MG Orally BID 1 tablet 12h Jul, 30 days Active Omeprazole 40 MG Orally Once a day QHS 1 capsule Mar, 30 day(s) Active Cyclobenzaprine HCl 10 MG TAKE 1 TABLET BY MOUTH THREE (3) T IMES DAILY 10 Active Ventolin HFA 108 (90 Base) MCG/ACT Inhalation every 4 hrs 2 puffs a s needed 4h Aug, 30 days Active Sertraline HCl 100 MG Orally Once a day 2 tablet 24h 30 days Active Lamotrigine 25 MG Orally twice [...] 1 cap celeste Mar, 30 day(s) Active Ondansetron 4 MG Orally every 4 hrs 1 tablet on the tong ue and allow to dissolve as needed 4h Active Mobic 15 MG Orally Once a day 1 tablet 24h Jul, 90 d ays Active Colace 100 MG Orally Once a day 1 capsule as needed 24h 30 Active RESULTS No Results PROCEDURES Procedure Date Ordered Result Body Site Billed by outside source May 15, 2019 INSTRUCTIONS MEDICATIONS ADMINISTERED No Known Medications [...] History Fused L ankle 09/2017 Hospitalization History [facility]- Hyperglycemia and February 2016 Hospitalization History Ankle surgery 09/2017
--- OUTSIDE RECORDS SUMMARY | 2020-03-15 21:21 | XMS REPORT ---
Author Author Solange Sultana [facility] Address [address], [place] [id number] Care Team Providers Care Junior Sales Representative Name Role Phone Felisha Sultana Unavailable PROBLEMS Type Condition ICD9-CM Code LDH05-NI Code Onset Dates Condition S tatus SNOMED Code Problem Gestational diabetes O24.419 Active 57399821 Problem Prediabetes R73.09 Active 53935071 2 Problem History of gestational diabetes Z86.32 Active 391493174 Problem Depression with anxiety F41.8 Active 267255593 Problem Fibromyalgia M79.7 Active 2438686 05 Problem Abscess, axilla L02.419 Active 1380 2001 Problem Mild persistent asthma without complication J45.30 Active 869633390 Problem Lumbago with sciatica, left side M54.42 Active 245913135 Problem Thoracic spine pain M54.6 Active 291913912 Problem Other chronic pain G89.29 Active 8 1974992 Problem Pain in right wrist M25.531 Active 86551318 Problem Plantar fasciitis M72.2 Active 20 1529912 Problem Left wrist pain M25.532 Active 5660 8008 Problem Chronic GERD K21.9 Active 1816539 09 Problem Mixed hyperlipidemia E78.2 Active 156054508 Problem Lumbago of lumbar region with sciatica M54.40 Active 44326599 Problem Chronic idiopathic constipation K59.09 Active 40854041 Problem Acute left ankle pain M25.572 Active 66166512604804 Problem Vitamin D deficiency E55.9 Active 25758646 Problem Other elevated white blood cell (WBC) count D72.82 8 Active 071191666 Problem Other fatigue R53.83 Active 500743 01 Problem Absent periods N91.2 Active 65563 001 Problem Generalized anxiety disorder F41.1 A ctive 50259793 Problem Cervical pain M54.2 Active 118831 05 Problem Decreased hearing of left ear H91.92 Active 19047414 Problem Post herpetic neuralgia B02.29 Active 0063096 Problem Reactive airway disease, mild persistent, uncomplicated J45.30 Active 598103657440 Problem Prediabetes R73.03 Active 91553928 2 Problem Irregular periods N92.6 Active 80 610391 Problem Rosacea L71.9 Active 819252177 Problem Irritable bowel syndrome with diarrhea K58.0 Active 148134877 Problem Menstrual cramps N94.6 Active 431 679710 Problem Excessive daytime sleepiness G47.19 A ctive 223778734900 Problem Constipation by delayed colonic transit K59.01 Active 10827648 Problem Primary insomnia F51.01 Active 397 2004 Problem Vitamin B 12 deficiency E53.8 Active 445169547 Problem GERD with esophagitis K21.0 Active 726633934 Problem Pain in pelvis R10.2 Active 64103 006 Problem Right hip pain M25.551 Active 92054 7226542051 Problem Neck pain M54.2 Active 61265633 Problem Sleep apnea in adult G47.30 Active 78957699 Problem Elevated blood pressure reading R03.0 Active 78947284 Problem Bipolar disorder F31.9 Active 137 83494 Problem Left hand pain M79.642 Active 75015 4302245449 Problem Cigarette nicotine dependence, uncomplicated F17.2 10 Active 74868392 Problem Left hip pain M25.552 Active 374761 02 Problem Right anterior shoulder pain M25.511 A ctive 85169845 Problem Radiculopathy of lumbar region M54.16 Active 040833701 Problem Spinal stenosis, lumbar region without neurogeni c claudication M48.061 Active 66262818 ALLERGIES No Information ENCOUNTERS Encounter Location Date Diagnosis [address] [address] Apr, Mixed hyperlipidemia E78.[address] [address] Apr, [address] [address] Apr, Bipolar disorder F31.9 ; Fibromyalgia M7 9.7 ; Depression with anxiety F41.8 ; Lumbago of lumbar region with sciatica M54.40 and Acute left ankle pain M25.[address] [address] Mar, Constipation by delayed colonic transit K59.01 ; Mixed hyperlipidemia E78.2 ; Depression with anxiety F41.8 ; Chronic GERD K21.9 and Bipolar disorder F31.[address] [address] Feb, Abscess L02.[address] [address] Dec, Chronic GERD K21.9 and Mixed hyperlipide sourav E78.[address] [address] Nov, [address] [address] Nov, [address] [address] Oct, Abscess, axilla L02.419 and Lumbago of l umbar region with sciatica M54.[address] [address] Oct, Fall, initial encounter W19.XXXA ; Right hip pain M25.551 ; Pain in pelvis R10.2 ; Right anterior shoulder pain M25.511 ; Left hip pain M25.552 ; Neck pain M54.2 ; Depression with anxiety F41.8 and Shingles B02.[address] [address] Oct, [address] [address] Oct, Sleep apnea in adult G47.[address] [address] Sep, Mixed hyperlipidemia E78.2 ; Prediabetes R73.09 ; Vitamin D deficiency E55.9 ; Fibromyalgia M79.7 ; Chronic GERD K21.9 ; Radiculopathy of lumbar region M54.16 ; Spinal stenosis, lumbar region without neurogenic claudication M48.061 ; Vitamin B 12 deficiency E53.8 ; Depression with anxiety F41.8 ; Cervical pain M54.2 and Hospital discharge follow-up Z09 [facility] [address] [place] [address] Sep, [facility] [address] [place] [address] Sep, [facility] [address] [place] [address] Sep, Post herpetic neuralgia B02.[address] [address] Sep, Mixed hyperlipidemia E78.2 ; Vitamin D [...] congestion R09.81 and GERD with esophagitis K21.[address] [address] Aug, [address] [address] Aug, Depression with anxiety F41.8 and Primar y insomnia F51.[address] [address] Aug, Chronic GERD K21.[address] [address] Aug, [address] [address] 15 Jul, 2018 Irregular periods N92.6 and Menstrual cr amps N94.[address] [address] 14 Jul, [address] [address] Jul, [address] [address] Jul, Abscess L02.[address] [address] Jul, Mixed hyperlipidemia E78.2 ; Chronic ABDOUL D K21.9 and Generalized anxiety disorder F41.[address] [address] Jul, Well woman exam with routine gynecologic al exam Z01.419 ; Menstrual cramps N94.6 ; Acute left ankle pain M25.572 ; Snoring R06.83 and Excessive daytime sleepiness G47.[address] [address] Jun, Shingles B02.[address] [address] Jun, Pruritic dermatitis L29.9 and Rosacea L7 1.[address] [address] Jun, [address] [address] Jun, [address] [address] Jun, [address] [address] Jun, Butterfly rash R21 ; Influenza vaccine n eeded Z23 ; Prediabetes R73.09 ; Mixed hyperlipidemia E78.2 and Vitamin D deficiency E55.[address] [address] Apr, Left ankle swelling M25.[address] [address] Apr, [address] [address] Apr, [address] [address] Mar, Edema of left foot R60.[address] [address] Mar, Irritable bowel syndrome with diarrhea K 58.0 [facility] [address] [facility] [place] [address] Mar, [facility] [address] [place] [address] Mar, [facility] [address] [place] [address] Mar, [facility] [address] [place] [address] Feb, Irritable bowel syndrome with diarrhea K 58.0 [facility] [address] [place] [address] Feb, [facility] [address] [place] [address] Feb, Irritable bowel syndrome with diarrhea K 58.0 [facility] [address] [place] [address] Feb, control counseling Z30.09 ; Lumbag o with sciatica, left side M54.42 and Chronic GERD K21.9 [facility] [address] [place] [address] Feb, [facility] [address] [place] [address] Feb, [facility] [address] [place] [address] Feb, [facility] [address] [place] [address] Feb, Diarrhea, unspecified type R19.7 [facility] [address] [place] [address] Feb, Abnormal glucose R73.09 [facility] [address] [place] [address] Feb, Abnormal glucose R73.09 [facility] [address] [place] [address] 05 Feb, 2018 Reactive airway disease, mild persistent , uncomplicated J45.30 [facility] [address] [place] [address] Feb, Lumbago with sciatica, left side M54.42 ; Cigarette nicotine dependence, uncomplicated F17.210 ; Diarrhea, unspecified type R19.7 and Abnormal glucose R73.[address] [address] January, [address] [address] January, [address] [address] January, [address] [address] January, [address] [address] January, Muscle strain of chest wall, initial enc ounter S29.011A ; Physical exam Z00.00 ; Need for hepatitis vaccination Z23 and Abscess L02.[address] [address] Dec, Left hand pain M79.642 ; Thoracic spine pain M54.6 ; Cervical pain M54.2 and Elevated blood pressure reading R03.[address] [address] Dec, Lumbago with sciatica, left side M54.42 and Decreased hearing of left ear H91.[address] [address] Dec, Other chest pain R07.89 ; Finger pain, l eft M79.645 ; Chronic GERD K21.9 and Muscle strain of chest wall, initial encounter S29.011A [address] [address] Dec, [address] [address] Dec, Other constipation K59.09 ; Irregular pe riods N92.6 and Absent periods N91.[address] [address] Oct, [address] [address] Oct, Weight gain R63.[address] [address] Oct, Generalized anxiety disorder F41.[address] [address] Sep, [address] [address] Sep, Absent periods N91.2 and Decreased heari ng of left ear H91.[address] [address] Sep, [address] [address] Sep, Pre-op exam Z01.818 and Abscess of chest wall L02.[address] [address] Sep, [address] [address] Sep, Prediabetes R73.09 ; Vitamin D deficienc y E55.9 ; Mixed hyperlipidemia E78.2 and Arthritis of ankle, left M19.[address] [address] Sep, Smoking trying to quit Z72.0 ; Chronic G ERD K21.9 ; Generalized anxiety disorder F41.1 ; Other chest pain R07.89 ; Other constipation K59.09 and Right upper quadrant pain R10.[address] [address] Aug, [address] [address] Aug, Other chronic pain G89.[address] [address] 14 Aug, 2017 Mixed hyperlipidemia E78.2 ; Fibromyalgi a M79.7 ; Lumbago of lumbar region with sciatica M54.40 ; History of gestational diabetes Z86.32 ; Prediabetes R73.09 ; Vitamin D deficiency E55.9 ; Weight gain R63.5 ; control counseling Z30.09 ; Pain, dental K08.89 and Flank pain R10.9 [facility] [address] [place] [address] Aug, [facility] [address] [place] [address] Jun, Acute left ankle pain M25.572 [facility] [address] [place] [address] Jun, [facility] [address] [place] [address] Jun, [facility] [address] [place] [address] Jun, Acute left ankle pain M25.572 [facility] [address] [place] [address] Jun, [facility] [address] [place] [address] Jun, Acute left ankle pain M25.572 [facility] [address] [place] [address] Jun, Influenza vaccine needed Z23 and Irregul ar periods N92.6 [facility] [address] [place] [address] May, Mixed hyperlipidemia E78.2 [facility] [address] [place] [address] May, [facility] [address] [place] [address] May, Chronic GERD K21.9 [facility] [address] [place] [address] Apr, Weight gain R63.5 [facility] [address] [place] [address] Apr, Chronic GERD K21.9 and Weight gain R63.5 [facility] [address] [place] [address] 26 David, 2017 Depression with anxiety F41.8 and Chroni c idiopathic constipation K59.[address] [address] Mar, Other chronic pain G89.[address] [address] Mar, Post herpetic neuralgia B02.[address] [address] Mar, Post herpetic neuralgia B02.[address] [address] Mar, [address] [address] Mar, Other elevated white blood cell (WBC) co unt D72.[address] [address] Mar, Other elevated white blood cell (WBC) co unt D72.828 and Dyslipidemia E78.[address] [address] Feb, [address] [address] Feb, Vitamin D deficiency E55.9 ; Dyslipidemi a E78.5 ; Other elevated white blood cell (WBC) count D72.828 and Skin tag L91.[address] [address] Feb, [address] [address] Feb, Vitamin D deficiency E55.9 and Dyslipide sourav E78.[address] [address] Feb, [address] [address] Feb, Post herpetic neuralgia B02.29 ; Thyroid disorder screen Z13.29 ; Mixed hyperlipidemia E78.2 ; Chronic GERD K21.9 ; Lumbago of lumbar region with sciatica M54.40 ; Prediabetes R73.03 ; Other fatigue R53.83 ; Vitamin D deficiency E55.9 and Vitamin B 12 deficiency E53.8 [facility] [address] [place] [address] Feb, Reactive airway disease, mild persistent , uncomplicated J45.30 [facility] [address] [place] [address] Feb, Chronic GERD K21.9 [facility] [address] [place] [address] Feb, Mixed hyperlipidemia E78.2 and Other chr onic pain G89.29 [facility] [address] [place] [address] Feb, Lumbago with sciatica, left side M54.42 ; Mixed hyperlipidemia E78.2 and Reactive airway disease, mild persistent, uncomplicated J45.30 [facility] [address] [place] [address] Feb, Chronic GERD K21.9 [facility] [address] [place] [address] Feb, [facility] [address] [place] [address] Feb, [facility] [address] [place] [address] Feb, Post herpetic neuralgia B02.[address] [address] Feb, Allergic contact dermatitis due to other agents L23.89 and Post herpetic neuralgia B02.29 [facility] [address] [place] [address] Feb, Chronic GERD K21.9 [facility] [address] [place] [address] Feb, Chronic GERD K21.9 [facility] [address] [place] [address] January, Post herpetic neuralgia B02.29 [facility] [address] [place] [address] January, Lumbago with sciatica, left side M54.42 [facility] [address] [place] [address] January, [facility] [address] [place] [address] January, Lumbago of lumbar region with sciatica M 54.40 [facility] [address] [place] [address] January, Other chronic pain G89.29 and Lumbago wi th sciatica, left side M54.42 [facility] [address] [place] [address] January, Depression with anxiety F41.8 [facility] [address] [place] [address] January, Mixed hyperlipidemia E78.2 [facility] [address] [place] [address] January, Abscess of left groin L02.214 [facility] [address] [place] [address] Dec, Depression with anxiety F41.[address] [address] Dec, Irregular periods N92.6 [facility] [address] [place] [address] Nov, Left wrist pain M25.532 and Acute left a nkle pain M25.572 [facility] [address] [place] [address] Nov, Post herpetic neuralgia B02.29 and Absce ss of left groin L02.214 [facility] [address] [place] [address] Sep, Irregular periods N92.6 [facility] [address] [place] [address] Sep, Mixed hyperlipidemia E78.2 ; Flank pain R10.9 and Post herpetic neuralgia B02.29 [facility] [address] [address] Aug, Lumbago of lumbar region with sciatica M 54.40 ; Chronic idiopathic constipation K59.09 ; Depression with anxiety F41.8 and Mixed hyperlipidemia E78.[address] [address] Aug, Other chronic pain G89.[address] [address] Aug, Reactive airway disease, mild persistent , uncomplicated J45.[address] [address] Aug, [address] [address] Aug, Cough R05 and Allergic contact dermatiti s due to other agents L23.[address] [address] Aug, [address] [address] Jul, Other chronic pain G89.[address] [address] Jul, Upper respiratory tract infection, unspe cified type J06.9 ; Chronic GERD K21.9 ; Acute left ankle pain M25.572 and Lumbago of lumbar region with sciatica M54.[address] [address] Jun, Other chronic pain G89.[address] [address] Jun, [address] [address] Jun, [address] [address] Jun, Chronic GERD K21.[address] [address] Jun, [address] [address] May, Pain in right wrist M25.531 ; Left wrist pain M25.532 ; Acute left ankle pain M25.572 ; Thoracic spine pain M54.6 ; Lumbago with sciatica, left side M54.42 ; Other chronic pain G89.29 and Dysuria R30.0 [facility] [address] [place] [address] May, Chronic GERD K21.9 [facility] [address] [place] [address] May, Chronic GERD K21.9 [facility] [address] [place] [address] May, [address] [address] May, [address] [address] May, [address] [address] May, [facility] [address] [place] [address] 16 May, 2016 Mixed hyperlipidemia E78.2 ; Fibromyalgi a M79.7 ; Depression with anxiety F41.8 ; Lumbago of lumbar region with sciatica M54.40 ; Encounter to establish care Z76.89 ; Chronic GERD K21.9 ; History of gestational diabetes Z86.32 ; Chronic idiopathic constipation K59.09 ; Thyroid disorder screen Z13.29 and Need for influenza vaccination Z23 [facility] [address] [place] [phone] Apr, Gestational diabetes O24.419 [facility] [address] [place] [address] Feb, Gestational diabetes O24.419 IMMUNIZATIONS No Known Immunizations SOCIAL HISTORY Never Assessed REASON FOR VISIT refill PLAN OF CARE VITAL SIGNS MEDICATIONS Medication Instructions Dosage Frequency Start Date End Date Duration S tatus Lamotrigine 25 MG Orally twice daily 1 tablet Mar, 30 day(s) Active Multivitamin Adult - Act nancy Omeprazole 40 MG Orally Once a day QHS 1 capsule Mar, 30 day(s) Active Quetiapine Fumarate 25 MG Orally Once a day 2 tablets at bedtime 24 h 20 Aug, 2018 30 day(s) Active Tramadol HCl 50 MG Orally Three times daily take 1-2 tablet by mouth three times daily 30 Active Pravastatin Sodium 20 MG TAKE 1 TABLET BY MOUTH EVERY NIGHT AT BEDTIME 90 days Active Nortriptyline HCl 25 MG Orally QHS 1 capsule 30 Active Dexilant 60 MG Orally Once a day 1 capsule 24h Sep, 30 day(s) Active Mobic 15 MG Orally Once a day 1 tablet 24h Jul, 90 d ays Active Sertraline HCl 100 MG Orally Once a day 2 tablet 24h 30 days Active Cyclobenzaprine HCl 10 MG TAKE 1 TABLET BY MOUTH THREE (3) T IMES DAILY 10 Active Esomeprazole Magnesium 40 MG Orally Once a day in the morning 1 cap celeste Mar, 30 day(s) Active Pantoprazole Sodium 40 MG Orally BID 1 tablet 12h Jul, 30 days Active Cleocin-T 1 % Externally Apply a thin film to affected area twice daily 1 application to affected area Jun, Active Bactrim DS 800-160 MG Orally Twice a day 1 tablet 12h Feb, 10 day(s) Active Gabapentin 800 MG Orally QID 1 tablet 6h Ac tive Colace 100 MG Orally Once a day 1 capsule as needed 24h 30 Active Ondansetron 4 MG Orally every 4 hrs 1 tablet on the tong ue and allow to dissolve as needed 4h Active Lidocaine 0.5 % Externally Three times a day 2.5 grams as needed 8h Aug, 30 days Active Abilify 10 MG Orally Once a day 1 tablet 24h Sep, 30 day(s) Active Dicyclomine HCl 20 MG Orally Four times a day 1 tablet 6h 30 day(s) Active Aripiprazole 10 MG Orally Once a day 1 tablet 24h 30 day(s) Active Ventolin HFA 108 (90 Base) MCG/ACT Inhalation every 6 hrs 2 puffs a s needed 6h Sep, 30 days Active Ventolin HFA 108 (90 Base) [...] Fused L ankle 09/2017 Hospitalization History [facility]- Hyperglycemia and February 2016 Hospitalization History Ankle surgery 09/2017
--- OUTSIDE RECORDS SUMMARY | 2020-03-15 21:21 | XMS REPORT ---
Author Author Solange Sultana [facility] Address [address], [place] [id number] Care Team Providers Care Industrial Organizational Psychologist Name Role Phone Kodi LoweryPhyllisFelisha Unavailable PROBLEMS Type Condition ICD9-CM Code XSM67-LS Code Onset Dates Condition S tatus SNOMED Code Problem Gestational diabetes O24.419 Active 68639569 Problem Prediabetes R73.09 Active 05814954 2 Problem History of gestational diabetes Z86.32 Active 730480432 Problem Depression with anxiety F41.8 Active 212890518 Problem Fibromyalgia M79.7 Active 5346471 05 Problem Abscess, axilla L02.419 Active 1380 2001 Problem Mild persistent asthma without complication J45.30 Active 662288586 Problem Lumbago with sciatica, left side M54.42 Active 816707098 Problem Thoracic spine pain M54.6 Active 391805850 Problem Other chronic pain G89.29 Active 8 5743771 Problem Pain in right wrist M25.531 Active 20216652 Problem Plantar fasciitis M72.2 Active 20 2943509 Problem Left wrist pain M25.532 Active 5660 8008 Problem Chronic GERD K21.9 Active 5099274 09 Problem Mixed hyperlipidemia E78.2 Active 285023609 Problem Lumbago of lumbar region with sciatica M54.40 Active 60641921 Problem Chronic idiopathic constipation K59.09 Active 64235031 Problem Acute left ankle pain M25.572 Active 55635856536174 Problem Vitamin D deficiency E55.9 Active 18934941 Problem Other elevated white blood cell (WBC) count D72.82 8 Active 722712844 Problem Other fatigue R53.83 Active 521651 01 Problem Absent periods N91.2 Active 36921 001 Problem Generalized anxiety disorder F41.1 A ctive 20076190 Problem Cervical pain M54.2 Active 916143 05 Problem Decreased hearing of left ear H91.92 Active 55436989 Problem Post herpetic neuralgia B02.29 Active 2408369 Problem Reactive airway disease, mild persistent, uncomplicated J45.30 Active 492036206466 Problem Prediabetes R73.03 Active 99387499 2 Problem Irregular periods N92.6 Active 80 360474 Problem Rosacea L71.9 Active 397404904 Problem Irritable bowel syndrome with diarrhea K58.0 Active 287097508 Problem Menstrual cramps N94.6 Active 431 730349 Problem Excessive daytime sleepiness G47.19 A ctive 290115544154 Problem Constipation by delayed colonic transit K59.01 Active 41783997 Problem Primary insomnia F51.01 Active 397 2004 Problem Vitamin B 12 deficiency E53.8 Active 550963877 Problem GERD with esophagitis K21.0 Active 585139984 Problem Pain in pelvis R10.2 Active 19936 006 Problem Right hip pain M25.551 Active 58597 6531266924 Problem Neck pain M54.2 Active 19902807 Problem Sleep apnea in adult G47.30 Active 17220297 Problem Elevated blood pressure reading R03.0 Active 98035763 Problem Bipolar disorder F31.9 Active 137 74118 Problem Left hand pain M79.642 Active 96440 8304092095 Problem Cigarette nicotine dependence, uncomplicated F17.2 10 Active 12852891 Problem Left hip pain M25.552 Active 485950 02 Problem Right anterior shoulder pain M25.511 A ctive 40995833 Problem Radiculopathy of lumbar region M54.16 Active 425833804 Problem Spinal stenosis, lumbar region without neurogeni c claudication M48.061 Active 21066322 ALLERGIES No Information ENCOUNTERS Encounter Location Date Diagnosis [address] [address] Apr, Lumbago of lumbar region with sciatica M 54.40 and Vitamin D deficiency E55.[address] [address] Apr, Vitamin D deficiency E55.[address] [address] Apr, Allergic contact dermatitis due to other agents L23.89 ; Bipolar disorder F31.9 ; Mixed hyperlipidemia E78.2 ; Prediabetes R73.09 ; Vitamin D deficiency E55.9 ; Depression with anxiety F41.8 ; Dizziness R42 ; Other fatigue R53.83 ; Left anterior shoulder pain M25.512 and Left lateral ankle pain M25.[address] [address] 16 Apr, 2019 Mixed hyperlipidemia E78.[address] [address] Apr, [address] [address] Apr, Bipolar disorder F31.9 ; Fibromyalgia M7 9.7 ; Depression with anxiety F41.8 ; Lumbago of lumbar region with sciatica M54.40 and Acute left ankle pain M25.[address] [address] Mar, Constipation by delayed colonic transit K59.01 ; Mixed hyperlipidemia E78.2 ; Depression with anxiety F41.8 ; Chronic GERD K21.9 and Bipolar disorder F31.[address] [address] Feb, Abscess L02.[address] [address] Dec, Chronic GERD K21.9 and Mixed hyperlipide sourav E78.[address] [address] Nov, [address] [address] Nov, [address] [address] Oct, Abscess, axilla L02.419 and Lumbago of l umbar region with sciatica M54.[address] [address] Oct, Fall, initial encounter W19.XXXA ; Right hip pain M25.551 ; Pain in pelvis R10.2 ; Right anterior shoulder pain M25.511 ; Left hip pain M25.552 ; Neck pain M54.2 ; Depression with anxiety F41.8 and Shingles B02.[address] [address] 06 Oct, [address] [address] 04 Oct, 2018 Sleep apnea in adult G47.[address] [address] Sep, Mixed hyperlipidemia E78.2 ; Prediabetes R73.09 ; Vitamin D deficiency E55.9 ; Fibromyalgia M79.7 ; Chronic GERD K21.9 ; Radiculopathy of lumbar region M54.16 ; Spinal stenosis, lumbar region without neurogenic claudication M48.061 ; Vitamin B 12 deficiency E53.8 ; Depression with anxiety F41.8 ; Cervical pain M54.2 and Hospital discharge follow-up Z09 [address] [address] Sep, [address] [address] Sep, [address] [address] Sep, Post herpetic neuralgia B02.[address] [address] Sep, Mixed hyperlipidemia E78.2 ; Vitamin D [...] R09.81 and GERD with esophagitis K21.[address] [address] Aug, [address] [address] Aug, Depression with anxiety F41.8 and Primar y insomnia F51.01 [facility] [address] [place] [address] Aug, Chronic GERD K21.9 [facility] [address] [place] [address] Aug, [facility] [address] [place] [address] 15 Jul, 2018 Irregular periods N92.6 and Menstrual cr amps N94.6 [facility] [address] [place] [address] 14 Jul, 2018 [facility] [address] [place] [address] 14 Jul, 2018 [facility] [address] [place] [address] 12 Jul, 2018 Abscess L02.[address] [address] 06 Jul, 2018 Mixed hyperlipidemia E78.2 ; Chronic ABDOUL D K21.9 and Generalized anxiety disorder F41.1 [facility] [address] [place] [address] 06 Jul, 2018 Well woman exam with routine gynecologic al exam Z01.419 ; Menstrual cramps N94.6 ; Acute left ankle pain M25.572 ; Snoring R06.83 and Excessive daytime sleepiness G47.19 [facility] [address] [place] [address] Jun, Shingles B02.9 [facility] [address] [place] [address] Jun, Pruritic dermatitis L29.9 and Rosacea L7 1.9 [facility] [address] [place] [address] Jun, [facility] [address] [place] [address] Jun, [facility] [address] [place] [address] Jun, [facility] [address] [place] [address] Jun, Butterfly rash R21 ; Influenza vaccine n eeded Z23 ; Prediabetes R73.09 ; Mixed hyperlipidemia E78.2 and Vitamin D deficiency E55.9 [facility] [address] [place] [address] Apr, Left ankle swelling M25.472 [facility] [address] [place] [address] Apr, [facility] [address] [place] [address] Apr, [facility] [address] [place] [address] Mar, Edema of left foot R60.0 [facility] [address] [address] Mar, Irritable bowel syndrome with diarrhea K 58.0 [facility] [address] [place] [address] Mar, [facility] [address] [place] [address] Mar, [facility] [address] [place] [address] Mar, [facility] [address] [place] [address] Feb, Irritable bowel syndrome with diarrhea K 58.0 [facility] [address] [place] [address] Feb, [facility] [address] [place] [address] Feb, Irritable bowel syndrome with diarrhea K 58.0 [facility] [address] [place] [address] Feb, control counseling Z30.09 ; Lumbag o with sciatica, left side M54.42 and Chronic GERD K21.9 [facility] [address] [place] [address] Feb, [facility] [address] [place] [address] Feb, [facility] [address] [place] [address] Feb, [address] [address] Feb, Diarrhea, unspecified type R19.7 [facility] [address] [place] [address] Feb, Abnormal glucose R73.[address] [address] Feb, Abnormal glucose R73.[address] [address] Feb, Reactive airway disease, mild persistent , uncomplicated J45.[address] [address] Feb, Lumbago with sciatica, left side M54.42 ; Cigarette nicotine dependence, uncomplicated F17.210 ; Diarrhea, unspecified type R19.7 and Abnormal glucose R73.[address] [address] January, [address] [address] January, [address] [address] January, [address] [address] January, [address] [address] January, Muscle strain of chest wall, initial enc ounter S29.011A ; Physical exam Z00.00 ; Need for hepatitis vaccination Z23 and Abscess L02.[address] [address] Dec, Left hand pain M79.642 ; Thoracic spine pain M54.6 ; Cervical pain M54.2 and Elevated blood pressure reading R03.[address] [address] Dec, Lumbago with sciatica, left side M54.42 and Decreased hearing of left ear H91.[address] [address] Dec, Other chest pain R07.89 ; Finger pain, l eft M79.645 ; Chronic GERD K21.9 and Muscle strain of chest wall, initial encounter S29.011A [address] [address] Dec, [address] [address] Dec, Other constipation K59.09 ; Irregular pe riods N92.6 and Absent periods N91.[address] [address] Oct, [address] [address] Oct, Weight gain R63.[address] [address] Oct, Generalized anxiety disorder F41.[address] [address] Sep, [address] [address] Sep, Absent periods N91.2 and Decreased heari ng of left ear H91.[address] [address] Sep, [address] [address] Sep, Pre-op exam Z01.818 and Abscess of chest wall L02.[address] [address] Sep, [address] [address] Sep, Prediabetes R73.09 ; Vitamin D deficienc y E55.9 ; Mixed hyperlipidemia E78.2 and Arthritis of ankle, left M19.[address] [place] [address] Sep, Smoking trying to quit Z72.0 ; Chronic G ERD K21.9 ; Generalized anxiety disorder F41.1 ; Other chest pain R07.89 ; Other constipation K59.09 and Right upper quadrant pain R10.11 [facility] [address] [place] [address] Aug, [address] [address] Aug, Other chronic pain G89.[address] [address] Aug, Mixed hyperlipidemia E78.2 ; Fibromyalgi a M79.7 ; Lumbago of lumbar region with sciatica M54.40 ; History of gestational diabetes Z86.32 ; Prediabetes R73.09 ; Vitamin D deficiency E55.9 ; Weight gain R63.5 ; control counseling Z30.09 ; Pain, dental K08.89 and Flank pain R10.[address] [address] Aug, [address] [address] Jun, Acute left ankle pain M25.[address] [address] Jun, [address] [address] Jun, [address] [address] Jun, Acute left ankle pain M25.[address] [address] Jun, [address] [address] Jun, Acute left ankle pain M25.[address] [address] Jun, Influenza vaccine needed Z23 and Irregul ar periods N92.6 [facility] [address] [place] [address] May, Mixed hyperlipidemia E78.2 [facility] [address] [place] [address] May, [facility] [address] [place] [address] May, Chronic GERD K21.9 [facility] [address] [place] [address] Apr, Weight gain R63.5 [facility] [address] [place] [address] Apr, Chronic GERD K21.9 and Weight gain R63.[address] [address] Mar, Depression with anxiety F41.8 and Chroni c idiopathic constipation K59.[address] [address] Mar, Other chronic pain G89.[address] [address] Mar, Post herpetic neuralgia B02.[address] [address] Mar, Post herpetic neuralgia B02.[address] [address] Mar, [address] [address] Mar, Other elevated white blood cell (WBC) co unt D72.828 [facility] [address] [place] [address] Mar, Other elevated white blood cell (WBC) co unt D72.828 and Dyslipidemia E78.[address] [address] Feb, [address] [address] Feb, Vitamin D deficiency E55.9 ; Dyslipidemi a E78.5 ; Other elevated white blood cell (WBC) count D72.828 and Skin tag L91.[address] [address] Feb, [address] [address] Feb, Vitamin D deficiency E55.9 and Dyslipide sourav E78.[address] [address] Feb, [address] [address] Feb, Post herpetic neuralgia B02.29 ; Thyroid disorder screen Z13.29 ; Mixed hyperlipidemia E78.2 ; Chronic GERD K21.9 ; Lumbago of lumbar region with sciatica M54.40 ; Prediabetes R73.03 ; Other fatigue R53.83 ; Vitamin D deficiency E55.9 and Vitamin B 12 deficiency E53.[address] [address] Feb, Reactive airway disease, mild persistent , uncomplicated J45.[address] [address] Feb, Chronic GERD K21.[address] [address] Feb, Mixed hyperlipidemia E78.2 and Other chr onic pain G89.[address] [address] Feb, Lumbago with sciatica, left side M54.42 ; Mixed hyperlipidemia E78.2 and Reactive airway disease, mild persistent, uncomplicated J45.[address] [address] Feb, Chronic GERD K21.[address] [address] Feb, [address] [address] Feb, [address] [address] 16 Feb, 2017 Post herpetic neuralgia B02.29 [facility] [address] [place] [address] 16 Feb, 2017 Allergic contact dermatitis due to other agents L23.89 and Post herpetic neuralgia B02.29 [facility] [address] [place] [address] 16 Feb, 2017 Chronic GERD K21.9 [facility] [address] [place] [address] Feb, Chronic GERD K21.9 [facility] [address] [place] [address] January, Post herpetic neuralgia B02.29 [facility] [address] [place] [address] January, Lumbago with sciatica, left side M54.42 [facility] [address] [place] [address] January, [facility] [address] [place] [address] January, Lumbago of lumbar region with sciatica M 54.40 [facility] [address] [place] [address] January, Other chronic pain G89.29 and Lumbago wi th sciatica, left side M54.42 [facility] [address] [place] [address] January, Depression with anxiety F41.8 [facility] [address] [place] [address] January, Mixed hyperlipidemia E78.2 [facility] [address] [place] [address] January, Abscess of left groin L02.214 [facility] [address] [place] [address] Dec, Depression with anxiety F41.8 [facility] [address] [place] [address] Dec, Irregular periods N92.6 [facility] [address] [place] [address] Nov, Left wrist pain M25.532 and Acute left a nkle pain M25.[address] [address] Nov, Post herpetic neuralgia B02.29 and Absce ss of left groin L02.[address] [address] Sep, Irregular periods N92.[address] [address] Sep, Mixed hyperlipidemia E78.2 ; Flank pain R10.9 and Post herpetic neuralgia B02.[address] [address] Aug, Lumbago of lumbar region with sciatica M 54.40 ; Chronic idiopathic constipation K59.09 ; Depression with anxiety F41.8 and Mixed hyperlipidemia E78.[address] [address] Aug, Other chronic pain G89.[address] [address] Aug, Reactive airway disease, mild persistent , uncomplicated J45.[address] [address] Aug, [address] [address] Aug, Cough R05 and Allergic contact dermatiti s due to other agents L23.[address] [address] Aug, [address] [address] Jul, Other chronic pain G89.[address] [address] Jul, Upper respiratory tract infection, unspe cified type J06.9 ; Chronic GERD K21.9 ; Acute left ankle pain M25.572 and Lumbago of lumbar region with sciatica M54.[address] [address] Jun, Other chronic pain G89.[address] [address] Jun, [address] [address] Jun, [address] [address] Jun, Chronic GERD K21.[address] [address] Jun, [address] [address] 30 May, 2016 Pain in right wrist M25.531 ; Left wrist pain M25.532 ; Acute left ankle pain M25.572 ; Thoracic spine pain M54.6 ; Lumbago with sciatica, left side M54.42 ; Other chronic pain G89.29 and Dysuria R30.[address] [address] May, Chronic GERD K21.[address] [address] May, Chronic GERD K21.[address] [address] May, [address] [address] May, [address] [address] May, [address] [address] May, [address] [address] 16 May, 2016 Mixed hyperlipidemia E78.2 ; Fibromyalgi a M79.7 ; Depression with anxiety F41.8 ; Lumbago of lumbar region with sciatica M54.40 ; Encounter to establish care Z76.89 ; Chronic GERD K21.9 ; History of gestational diabetes Z86.32 ; Chronic idiopathic constipation K59.09 ; Thyroid disorder screen Z13.29 and Need for influenza vaccination Z23 [facility] [address] [place] [address] Apr, Gestational diabetes O24.419 [facility] [address] [place] [address] Feb, Gestational diabetes O24.419 IMMUNIZATIONS No Known Immunizations SOCIAL HISTORY Never Assessed REASON FOR VISIT Pharmacy change PLAN OF CARE VITAL SIGNS MEDICATIONS Medication Instructions Dosage Frequency Start Date End Date Duration S tatus Vitamin D (Ergocalciferol) 69225 UNIT Orally two a week 1 capsule Feb, 30 days Active Tramadol HCl 50 MG Orally Three [...]
--- OUTSIDE RECORDS SUMMARY | 2020-03-15 21:21 | XMS REPORT ---
Author Author Solange Sultana [facility] Address [address] [place], [place] [id number] Care Team Providers Care Brazing Machine Feeder Name Role Phone Kodi LoweryPhyllisFelisha Unavailable PROBLEMS Type Condition ICD9-CM Code ZNZ91-LQ Code Onset Dates Condition S tatus SNOMED Code Problem Gestational diabetes O24.419 Active 02170332 Problem Prediabetes R73.09 Active 77836337 2 Problem History of gestational diabetes Z86.32 Active 608881899 Problem Depression with anxiety F41.8 Active 611499694 Problem Fibromyalgia M79.7 Active 1206731 05 Problem Abscess, axilla L02.419 Active 1380 2001 Problem Mild persistent asthma without complication J45.30 Active 307056428 Problem Lumbago with sciatica, left side M54.42 Active 571621948 Problem Thoracic spine pain M54.6 Active 326029289 Problem Other chronic pain G89.29 Active 8 8458504 Problem Pain in right wrist M25.531 Active 10221007 Problem Plantar fasciitis M72.2 Active 20 6219187 Problem Left wrist pain M25.532 Active 5660 8008 Problem Chronic GERD K21.9 Active 7980066 09 Problem Mixed hyperlipidemia E78.2 Active 445096474 Problem Lumbago of lumbar region with sciatica M54.40 Active 16789707 Problem Chronic idiopathic constipation K59.09 Active 93438586 Problem Acute left ankle pain M25.572 Active 50696822409936 Problem Vitamin D deficiency E55.9 Active 47454373 Problem Other elevated white blood cell (WBC) count D72.82 8 Active 605439962 Problem Other fatigue R53.83 Active 330719 01 Problem Absent periods N91.2 Active 74954 001 Problem Generalized anxiety disorder F41.1 A ctive 90343101 Problem Cervical pain M54.2 Active 549089 05 Problem Decreased hearing of left ear H91.92 Active 06839510 Problem Post herpetic neuralgia B02.29 Active 7743670 Problem Reactive airway disease, mild persistent, uncomplicated J45.30 Active 515866339313 Problem Prediabetes R73.03 Active 52199737 2 Problem Irregular periods N92.6 Active 80 964765 Problem Rosacea L71.9 Active 541166054 Problem Irritable bowel syndrome with diarrhea K58.0 Active 763062689 Problem Menstrual cramps N94.6 Active 431 018936 Problem Excessive daytime sleepiness G47.19 A ctive 133251860258 Problem Constipation by delayed colonic transit K59.01 Active 64429471 Problem Primary insomnia F51.01 Active 397 2004 Problem Vitamin B 12 deficiency E53.8 Active 713795818 Problem GERD with esophagitis K21.0 Active 641184608 Problem Pain in pelvis R10.2 Active 76186 006 Problem Right hip pain M25.551 Active 37421 1874514185 Problem Neck pain M54.2 Active 97266830 Problem Sleep apnea in adult G47.30 Active 95034291 Problem Elevated blood pressure reading R03.0 Active 08349844 Problem Bipolar disorder F31.9 Active 137 00912 Problem Left hand pain M79.642 Active 01214 4694525325 Problem Cigarette nicotine dependence, uncomplicated F17.2 10 Active 97440341 Problem Left hip pain M25.552 Active 356596 02 Problem Right anterior shoulder pain M25.511 A ctive 71888963 Problem Radiculopathy of lumbar region M54.16 Active 581330124 Problem Spinal stenosis, lumbar region without neurogeni c claudication M48.061 Active 59590047 ALLERGIES No Information ENCOUNTERS Encounter Location Date Diagnosis [address] [address] Apr, Lumbago of lumbar region with sciatica M 54.40 and Vitamin D deficiency E55.[address] [address] Apr, Vitamin D deficiency E55.[address] [address] Apr, Allergic contact dermatitis due to other agents L23.89 ; Bipolar disorder F31.9 ; Mixed hyperlipidemia E78.2 ; Prediabetes R73.09 ; Vitamin D deficiency E55.9 ; Depression with anxiety F41.8 ; Dizziness R42 ; Other fatigue R53.83 ; Left anterior shoulder pain M25.512 and Left lateral ankle pain M25.[address] [address] 16 Apr, 2019 Mixed hyperlipidemia E78.[address] [address] Apr, [address] [address] Apr, Bipolar disorder F31.9 ; Fibromyalgia M7 9.7 ; Depression with anxiety F41.8 ; Lumbago of lumbar region with sciatica M54.40 and Acute left ankle pain M25.[address] [address] Mar, Constipation by delayed colonic transit K59.01 ; Mixed hyperlipidemia E78.2 ; Depression with anxiety F41.8 ; Chronic GERD K21.9 and Bipolar disorder F31.[address] [address] Feb, Abscess L02.[address] [address] Dec, Chronic GERD K21.9 and Mixed hyperlipide sourav E78.[address] [address] Nov, [address] [address] Nov, [address] [address] Oct, Abscess, axilla L02.419 and Lumbago of l umbar region with sciatica M54.[address] [address] Oct, Fall, initial encounter W19.XXXA ; Right hip pain M25.551 ; Pain in pelvis R10.2 ; Right anterior shoulder pain M25.511 ; Left hip pain M25.552 ; Neck pain M54.2 ; Depression with anxiety F41.8 and Shingles B02.[address] [address] 06 Oct, [address] [address] 04 Oct, 2018 Sleep apnea in adult G47.[address] [address] Sep, Mixed hyperlipidemia E78.2 ; Prediabetes R73.09 ; Vitamin D deficiency E55.9 ; Fibromyalgia M79.7 ; Chronic GERD K21.9 ; Radiculopathy of lumbar region M54.16 ; Spinal stenosis, lumbar region without neurogenic claudication M48.061 ; Vitamin B 12 deficiency E53.8 ; Depression with anxiety F41.8 ; Cervical pain M54.2 and Hospital discharge follow-up Z09 [address] [address] Sep, [address] [address] Sep, [address] [address] Sep, Post herpetic neuralgia B02.[address] [address] Sep, Mixed hyperlipidemia E78.2 ; Vitamin D [...] congestion R09.81 and GERD with esophagitis K21.[address] [address] Aug, [address] [address] Aug, Depression with anxiety F41.8 and Primar y insomnia F51.01 [facility] [address] [place] [address] Aug, Chronic GERD K21.9 [facility] [address] [place] [address] Aug, [facility] [address] [place] [address] 15 Jul, 2018 Irregular periods N92.6 and Menstrual cr amps N94.6 [facility] [address] [place] [address] 14 Jul, 2018 [facility] [address] [place] [address] 14 Jul, 2018 [facility] [address] [place] [address] 12 Jul, 2018 Abscess L02.[address] [address] 06 Jul, 2018 Mixed hyperlipidemia E78.2 ; Chronic ABDOUL D K21.9 and Generalized anxiety disorder F41.1 [facility] [address] [place] [address] 06 Jul, 2018 Well woman exam with routine gynecologic al exam Z01.419 ; Menstrual cramps N94.6 ; Acute left ankle pain M25.572 ; Snoring R06.83 and Excessive daytime sleepiness G47.19 [facility] [address] [place] [address] Jun, Shingles B02.9 [facility] [address] [place] [address] Jun, Pruritic dermatitis L29.9 and Rosacea L7 1.9 [facility] [address] [place] [address] Jun, [facility] [address] [place] [address] Jun, [facility] [address] [place] [address] Jun, [facility] [address] [place] [address] Jun, Butterfly rash R21 ; Influenza vaccine n eeded Z23 ; Prediabetes R73.09 ; Mixed hyperlipidemia E78.2 and Vitamin D deficiency E55.9 [facility] [address] [place] [address] Apr, Left ankle swelling M25.472 [facility] [address] [place] [address] Apr, [facility] [address] [place] [address] Apr, [facility] [address] [place] [address] Mar, Edema of left foot R60.0 [facility] [address] [address] Mar, Irritable bowel syndrome with diarrhea K 58.0 [facility] [address] [place] [address] Mar, [facility] [address] [place] [address] Mar, [facility] [address] [place] [address] Mar, [facility] [address] [place] [address] Feb, Irritable bowel syndrome with diarrhea K 58.0 [facility] [address] [place] [address] Feb, [facility] [address] [place] [address] Feb, Irritable bowel syndrome with diarrhea K 58.0 [facility] [address] [place] [address] Feb, control counseling Z30.09 ; Lumbag o with sciatica, left side M54.42 and Chronic GERD K21.9 [facility] [address] [place] [address] Feb, [facility] [address] [place] [address] Feb, [facility] [address] [place] [address] Feb, [address] [address] Feb, Diarrhea, unspecified type R19.7 [facility] [address] [place] [address] Feb, Abnormal glucose R73.[address] [address] Feb, Abnormal glucose R73.[address] [address] Feb, Reactive airway disease, mild persistent , uncomplicated J45.[address] [address] Feb, Lumbago with sciatica, left side M54.42 ; Cigarette nicotine dependence, uncomplicated F17.210 ; Diarrhea, unspecified type R19.7 and Abnormal glucose R73.[address] [address] January, [address] [address] January, [address] [address] January, [address] [address] January, [address] [address] January, Muscle strain of chest wall, initial enc ounter S29.011A ; Physical exam Z00.00 ; Need for hepatitis vaccination Z23 and Abscess L02.[address] [address] Dec, Left hand pain M79.642 ; Thoracic spine pain M54.6 ; Cervical pain M54.2 and Elevated blood pressure reading R03.[address] [address] Dec, Lumbago with sciatica, left side M54.42 and Decreased hearing of left ear H91.[address] [address] Dec, Other chest pain R07.89 ; Finger pain, l eft M79.645 ; Chronic GERD K21.9 and Muscle strain of chest wall, initial encounter S29.011A [address] [address] Dec, [address] [address] Dec, Other constipation K59.09 ; Irregular pe riods N92.6 and Absent periods N91.[address] [address] Oct, [address] [address] Oct, Weight gain R63.[address] [address] Oct, Generalized anxiety disorder F41.[address] [address] Sep, [address] [address] Sep, Absent periods N91.2 and Decreased heari ng of left ear H91.[address] [address] Sep, [address] [address] Sep, Pre-op exam Z01.818 and Abscess of chest wall L02.[address] [address] Sep, [address] [address] Sep, Prediabetes R73.09 ; Vitamin D deficienc y E55.9 ; Mixed hyperlipidemia E78.2 and Arthritis of ankle, left M19.[address] [place] [address] Sep, Smoking trying to quit Z72.0 ; Chronic G ERD K21.9 ; Generalized anxiety disorder F41.1 ; Other chest pain R07.89 ; Other constipation K59.09 and Right upper quadrant pain R10.11 [facility] [address] [place] [address] Aug, [address] [address] Aug, Other chronic pain G89.[address] [address] Aug, Mixed hyperlipidemia E78.2 ; Fibromyalgi a M79.7 ; Lumbago of lumbar region with sciatica M54.40 ; History of gestational diabetes Z86.32 ; Prediabetes R73.09 ; Vitamin D deficiency E55.9 ; Weight gain R63.5 ; control counseling Z30.09 ; Pain, dental K08.89 and Flank pain R10.[address] [address] Aug, [address] [address] Jun, Acute left ankle pain M25.[address] [address] Jun, [address] [address] Jun, [address] [address] Jun, Acute left ankle pain M25.[address] [address] Jun, [address] [address] Jun, Acute left ankle pain M25.[address] [address] Jun, Influenza vaccine needed Z23 and Irregul ar periods N92.6 [facility] [address] [place] [address] May, Mixed hyperlipidemia E78.2 [facility] [address] [place] [address] May, [facility] [address] [place] [address] May, Chronic GERD K21.9 [facility] [address] [place] [address] Apr, Weight gain R63.5 [facility] [address] [place] [address] Apr, Chronic GERD K21.9 and Weight gain R63.[address] [address] Mar, Depression with anxiety F41.8 and Chroni c idiopathic constipation K59.[address] [address] Mar, Other chronic pain G89.[address] [address] Mar, Post herpetic neuralgia B02.[address] [address] Mar, Post herpetic neuralgia B02.[address] [address] Mar, [address] [address] Mar, Other elevated white blood cell (WBC) co unt D72.828 [facility] [address] [place] [address] Mar, Other elevated white blood cell (WBC) co unt D72.828 and Dyslipidemia E78.[address] [address] Feb, [address] [address] Feb, Vitamin D deficiency E55.9 ; Dyslipidemi a E78.5 ; Other elevated white blood cell (WBC) count D72.828 and Skin tag L91.[address] [address] Feb, [address] [address] Feb, Vitamin D deficiency E55.9 and Dyslipide sourav E78.[address] [address] Feb, [address] [address] Feb, Post herpetic neuralgia B02.29 ; Thyroid disorder screen Z13.29 ; Mixed hyperlipidemia E78.2 ; Chronic GERD K21.9 ; Lumbago of lumbar region with sciatica M54.40 ; Prediabetes R73.03 ; Other fatigue R53.83 ; Vitamin D deficiency E55.9 and Vitamin B 12 deficiency E53.[address] [address] Feb, Reactive airway disease, mild persistent , uncomplicated J45.[address] [address] Feb, Chronic GERD K21.[address] [address] Feb, Mixed hyperlipidemia E78.2 and Other chr onic pain G89.[address] [address] Feb, Lumbago with sciatica, left side M54.42 ; Mixed hyperlipidemia E78.2 and Reactive airway disease, mild persistent, uncomplicated J45.[address] [address] Feb, Chronic GERD K21.[address] [address] Feb, [address] [address] Feb, [address] [address] 16 Feb, 2017 Post herpetic neuralgia B02.29 [facility] [address] [place] [address] 16 Feb, 2017 Allergic contact dermatitis due to other agents L23.89 and Post herpetic neuralgia B02.29 [facility] [address] [place] [address] 16 Feb, 2017 Chronic GERD K21.9 [facility] [address] [place] [address] Feb, Chronic GERD K21.9 [facility] [address] [place] [address] January, Post herpetic neuralgia B02.29 [facility] [address] [place] [address] January, Lumbago with sciatica, left side M54.42 [facility] [address] [place] [address] January, [facility] [address] [place] [address] January, Lumbago of lumbar region with sciatica M 54.40 [facility] [address] [place] [address] January, Other chronic pain G89.29 and Lumbago wi th sciatica, left side M54.42 [facility] [address] [place] [address] January, Depression with anxiety F41.8 [facility] [address] [place] [address] January, Mixed hyperlipidemia E78.2 [facility] [address] [place] [address] January, Abscess of left groin L02.214 [facility] [address] [place] [address] Dec, Depression with anxiety F41.8 [facility] [address] [place] [address] Dec, Irregular periods N92.6 [facility] [address] [place] [address] Nov, Left wrist pain M25.532 and Acute left a nkle pain M25.[address] [address] Nov, Post herpetic neuralgia B02.29 and Absce ss of left groin L02.[address] [address] Sep, Irregular periods N92.[address] [address] Sep, Mixed hyperlipidemia E78.2 ; Flank pain R10.9 and Post herpetic neuralgia B02.[address] [address] Aug, Lumbago of lumbar region with sciatica M 54.40 ; Chronic idiopathic constipation K59.09 ; Depression with anxiety F41.8 and Mixed hyperlipidemia E78.[address] [address] Aug, Other chronic pain G89.[address] [address] Aug, Reactive airway disease, mild persistent , uncomplicated J45.[address] [address] Aug, [address] [address] Aug, Cough R05 and Allergic contact dermatiti s due to other agents L23.[address] [address] Aug, [address] [address] Jul, Other chronic pain G89.[address] [address] Jul, Upper respiratory tract infection, unspe cified type J06.9 ; Chronic GERD K21.9 ; Acute left ankle pain M25.572 and Lumbago of lumbar region with sciatica M54.[address] [address] Jun, Other chronic pain G89.[address] [address] Jun, [address] [address] Jun, [address] [address] Jun, Chronic GERD K21.[address] [address] Jun, [address] [address] 30 May, 2016 Pain in right wrist M25.531 ; Left wrist pain M25.532 ; Acute left ankle pain M25.572 ; Thoracic spine pain M54.6 ; Lumbago with sciatica, left side M54.42 ; Other chronic pain G89.29 and Dysuria R30.[address] [address] May, Chronic GERD K21.[address] [address] May, Chronic GERD K21.[address] [address] May, [address] [address] May, [address] [address] May, [address] [address] May, [address] [address] 16 May, 2016 Mixed hyperlipidemia E78.2 ; Fibromyalgi a M79.7 ; Depression with anxiety F41.8 ; Lumbago of lumbar region with sciatica M54.40 ; Encounter to establish care Z76.89 ; Chronic GERD K21.9 ; History of gestational diabetes Z86.32 ; Chronic idiopathic constipation K59.09 ; Thyroid disorder screen Z13.29 and Need for influenza vaccination Z23 [facility] [address] [place] [phone] Apr, Gestational diabetes O24.419 [facility] [address] [place] [phone] Feb, Gestational diabetes O24.419 IMMUNIZATIONS No Known Immunizations SOCIAL HISTORY Never Assessed REASON FOR VISIT Vit D PLAN OF CARE VITAL SIGNS MEDICATIONS Medication Instructions Dosage Frequency Start Date End Date Duration S serena Vitamin D (Ergocalciferol) 64838 UNIT Orally two a week 1 capsule Feb, 30 days Active RESULTS No Results PROCEDURES [...]
--- OUTSIDE RECORDS SUMMARY | 2020-03-15 21:22 | XMS REPORT ---
Author Author Solange Sultana [facility] Address [address], [place] [id number] Care Team Providers Care Rehab Specialist Name Role Phone Felisha Sultana Unavailable PROBLEMS Type Condition ICD9-CM Code [id number] Code Onset Dates Condition S tatus SNOMED Code Problem Prediabetes R73.03 Active 05403618 2 Problem Other fatigue R53.83 Active 464188 01 Problem Vitamin D deficiency E55.9 Active 70313582 Problem Generalized anxiety disorder F41.1 A ctive 39723935 Problem History of gestational diabetes Z86.32 Active 499603053 Problem Other elevated white blood cell (WBC) count D72.82 8 Active 880702045 Problem Gestational diabetes O24.419 Active 99014024 Problem Decreased hearing of left ear H91.92 Active 16387069 Problem Fibromyalgia M79.7 Active 1778073 05 Problem Absent periods N91.2 Active 50378 001 Problem Prediabetes R73.09 Active 43910628 2 Problem Mild persistent asthma without complication J45.30 Active 160798004 Problem Reactive airway disease, mild persistent, uncomplicated J45.30 Active 787051008264 Problem Vitamin B 12 deficiency E53.8 Active 442853465 Problem Plantar fasciitis M72.2 Active 20 9592191 Problem Irregular periods N92.6 Active 80 618431 Problem Post herpetic neuralgia B02.29 Active 7370478 Problem Irritable bowel syndrome with diarrhea K58.0 Active 251393735 Problem Cigarette nicotine dependence, uncomplicated F17.2 10 Active 87034742 Problem Excessive daytime sleepiness G47.19 A ctive 646205338888 Problem Thoracic spine pain M54.6 Active 345547209 Problem Rosacea L71.9 Active 215605916 Problem Acute left ankle pain M25.572 Active 76437388031339 Problem Primary insomnia F51.01 Active 397 2004 Problem Pain in right wrist M25.531 Active 72098271 Problem Menstrual cramps N94.6 Active 431 706643 Problem Lumbago with sciatica, left side M54.42 Active 025254452 Problem GERD with esophagitis K21.0 Active 674334159 Problem Left wrist pain M25.532 Active 5660 8008 Problem Constipation by delayed colonic transit K59.01 Active 28314935 Problem Other chronic pain G89.29 Active 8 6925804 Problem Abscess, axilla L02.419 Active 1380 2001 Problem Pain in pelvis R10.2 Active 68954 006 Problem Right hip pain M25.551 Active 28288 9499336476 Problem Spinal stenosis, lumbar region without neurogeni c claudication M48.061 Active 76486969 Problem Left hand pain M79.642 Active 12200 4002754020 Problem Mixed hyperlipidemia E78.2 Active 303089069 Problem Sleep apnea in adult G47.30 Active 98084197 Problem Cervical pain M54.2 Active 866882 05 Problem Depression with anxiety F41.8 Active 523561294 Problem Chronic idiopathic constipation K59.09 Active 87427752 Problem Elevated blood pressure reading R03.0 Active 60824558 Problem Chronic GERD K21.9 Active 4777202 09 Problem Neck pain M54.2 Active 04980995 Problem Left hip pain M25.552 Active 219870 02 Problem Lumbago of lumbar region with sciatica M54.40 Active 52569825 Problem Right anterior shoulder pain M25.511 A ctive 58665067 Problem Radiculopathy of lumbar region M54.16 Active 086167936 ALLERGIES No Information ENCOUNTERS Encounter Location Date Diagnosis [address] [address] Nov, [address] [address] Nov, [address] [address] Oct, Abscess, axilla L02.419 and Lumbago of l umbar region with sciatica M54.[address] [address] Oct, Fall, initial encounter W19.XXXA ; Right hip pain M25.551 ; Pain in pelvis R10.2 ; Right anterior shoulder pain M25.511 ; Left hip pain M25.552 ; Neck pain M54.2 ; Depression with anxiety F41.8 and Shingles B02.[address] [address] Oct, [address] [address] Oct, Sleep apnea in adult G47.[address] [address] Sep, Mixed hyperlipidemia E78.2 ; Prediabetes R73.09 ; Vitamin D deficiency E55.9 ; Fibromyalgia M79.7 ; Chronic GERD K21.9 ; Radiculopathy of lumbar region M54.16 ; Spinal stenosis, lumbar region without neurogenic claudication M48.061 ; Vitamin B 12 deficiency E53.8 ; Depression with anxiety F41.8 ; Cervical pain M54.2 and Hospital discharge follow-up Z09 [address] [address] Sep, [address] [address] Sep, [address] [address] Sep, Post herpetic neuralgia B02.[address] [address] Sep, Mixed hyperlipidemia E78.2 ; Vitamin D [...] congestion R09.81 and GERD with esophagitis K21.[address] [address] Aug, [facility] [address] [place] [address] Aug, Depression with anxiety F41.8 and Primar y insomnia F51.[address] [address] Aug, Chronic GERD K21.[address] [address] Aug, [address] [address] 15 Jul, 2018 Irregular periods N92.6 and Menstrual cr amps N94.[address] [address] Jul, [address] [address] Jul, [address] [address] Jul, Abscess L02.[address] [address] 06 Jul, 2018 Mixed hyperlipidemia E78.2 ; Chronic ABDOUL D K21.9 and Generalized anxiety disorder F41.[address] [address] 06 Jul, 2018 Well woman exam with routine gynecologic al exam Z01.419 ; Menstrual cramps N94.6 ; Acute left ankle pain M25.572 ; Snoring R06.83 and Excessive daytime sleepiness G47.[address] [address] Jun, Shingles B02.[address] [address] Jun, Pruritic dermatitis L29.9 and Rosacea L7 1.[address] [address] Jun, [address] [address] Jun, [address] [address] Jun, [facility] [address] [place] [address] Jun, Butterfly rash R21 ; Influenza vaccine n eeded Z23 ; Prediabetes R73.09 ; Mixed hyperlipidemia E78.2 and Vitamin D deficiency E55.9 [facility] [address] [place] [address] Apr, Left ankle swelling M25.472 [facility] [address] [place] [address] Apr, [facility] [address] [place] [address] Apr, [facility] [address] [place] [address] Mar, Edema of left foot R60.0 [facility] [address] [place] [address] Mar, Irritable bowel syndrome with diarrhea K 58.0 [facility] [address] [place] [address] Mar, [facility] [address] [place] [address] Mar, [facility] [address] [place] [address] Mar, [facility] [address] [place] [address] Feb, Irritable bowel syndrome with diarrhea K 58.0 [facility] [address] [place] [address] Feb, [facility] [address] [place] [address] Feb, Irritable bowel syndrome with diarrhea K 58.0 [facility] [address] [place] [address] Feb, control counseling Z30.09 ; Lumbag o with sciatica, left side M54.42 and Chronic GERD K21.9 [facility] [address] [place] [address] Feb, [facility] [address] [place] [address] Feb, [address] [address] Feb, [address] [address] Feb, Diarrhea, unspecified type R19.[address] [address] Feb, Abnormal glucose R73.[address] [address] Feb, Abnormal glucose R73.[address] [address] Feb, Reactive airway disease, mild persistent , uncomplicated J45.[address] [address] Feb, Lumbago with sciatica, left side M54.42 ; Cigarette nicotine dependence, uncomplicated F17.210 ; Diarrhea, unspecified type R19.7 and Abnormal glucose R73.[address] [address] January, [address] [address] January, [address] [address] January, [address] [address] January, [address] [address] January, Muscle strain of chest wall, initial enc ounter S29.011A ; Physical exam Z00.00 ; Need for hepatitis vaccination Z23 and Abscess L02.[address] [address] Dec, Left hand pain M79.642 ; Thoracic spine pain M54.6 ; Cervical pain M54.2 and Elevated blood pressure reading R03.[address] [place] [address] Dec, Lumbago with sciatica, left side M54.42 and Decreased hearing of left ear H91.[address] [address] Dec, Other chest pain R07.89 ; Finger pain, l eft M79.645 ; Chronic GERD K21.9 and Muscle strain of chest wall, initial encounter S29.011A [address] [address] Dec, [address] [address] Dec, Other constipation K59.09 ; Irregular pe riods N92.6 and Absent periods N91.[address] [address] Oct, [address] [address] Oct, Weight gain R63.[address] [address] Oct, Generalized anxiety disorder F41.[address] [address] Sep, [address] [address] Sep, Absent periods N91.2 and Decreased heari ng of left ear H91.[address] [address] Sep, [address] [address] Sep, Pre-op exam Z01.818 and Abscess of chest wall L02.[address] [address] Sep, [address] [address] Sep, Prediabetes R73.09 ; Vitamin D deficienc y E55.9 ; Mixed hyperlipidemia E78.2 and Arthritis of ankle, left M19.[address] [address] Sep, Smoking trying to quit Z72.0 ; Chronic G ERD K21.9 ; Generalized anxiety disorder F41.1 ; Other chest pain R07.89 ; Other constipation K59.09 and Right upper quadrant pain R10.[address] [address] Aug, [address] [address] Aug, Other chronic pain G89.[address] [address] Aug, Mixed hyperlipidemia E78.2 ; Fibromyalgi a M79.7 ; Lumbago of lumbar region with sciatica M54.40 ; History of gestational diabetes Z86.32 ; Prediabetes R73.09 ; Vitamin D deficiency E55.9 ; Weight gain R63.5 ; control counseling Z30.09 ; Pain, dental K08.89 and Flank pain R10.[address] [address] Aug, [address] [address] Jun, Acute left ankle pain M25.[address] [address] Jun, [address] [address] Jun, [address] [address] Jun, Acute left ankle pain M25.[address] [address] Jun, [address] [address] Jun, Acute left ankle pain M25.[address] [address] Jun, Influenza vaccine needed Z23 and Irregul ar periods N92.6 [facility] [address] [place] [address] May, Mixed hyperlipidemia E78.2 [facility] [address] [place] [address] May, [facility] [address] [place] [address] May, Chronic GERD K21.9 [facility] [address] [place] [address] Apr, Weight gain R63.[address] [address] Apr, Chronic GERD K21.9 and Weight gain R63.5 [facility] [address] [place] [address] Mar, Depression with anxiety F41.8 and Chroni c idiopathic constipation K59.09 [facility] [address] [place] [address] Mar, Other chronic pain G89.29 [facility] [address] [place] [address] Mar, Post herpetic neuralgia B02.29 [facility] [address] [place] [address] Mar, Post herpetic neuralgia B02.29 [facility] [address] [place] [address] Mar, [facility] [address] [place] [address] Mar, Other elevated white blood cell (WBC) co unt D72.[address] [address] Mar, Other elevated white blood cell (WBC) co unt D72.828 and Dyslipidemia E78.5 [facility] [address] [place] [address] Feb, [facility] [address] [place] [address] Feb, Vitamin D deficiency E55.9 ; Dyslipidemi a E78.5 ; Other elevated white blood cell (WBC) count D72.828 and Skin tag L91.[address] [address] Feb, [address] [address] Feb, Vitamin D deficiency E55.9 and Dyslipide sourav E78.[address] [address] Feb, [address] [address] Feb, Post herpetic neuralgia B02.29 ; Thyroid disorder screen Z13.29 ; Mixed hyperlipidemia E78.2 ; Chronic GERD K21.9 ; Lumbago of lumbar region with sciatica M54.40 ; Prediabetes R73.03 ; Other fatigue R53.83 ; Vitamin D deficiency E55.9 and Vitamin B 12 deficiency E53.[address] [address] Feb, Reactive airway disease, mild persistent , uncomplicated J45.[address] [address] Feb, Chronic GERD K21.[address] [address] Feb, Mixed hyperlipidemia E78.2 and Other chr onic pain G89.[address] [address] Feb, Lumbago with sciatica, left side M54.42 ; Mixed hyperlipidemia E78.2 and Reactive airway disease, mild persistent, uncomplicated J45.[address] [address] Feb, Chronic GERD K21.[address] [address] Feb, [address] [address] Feb, [facility] [address] [place] [address] Feb, Post herpetic neuralgia B02.[address] [facility] [address] [place] [address] Feb, Allergic contact dermatitis due to other agents L23.89 and Post herpetic neuralgia B02.29 [facility] [address] [place] [address] Feb, Chronic GERD K21.9 [facility] [address] [place] [address] Feb, Chronic GERD K21.9 [facility] [address] [place] [address] January, Post herpetic neuralgia B02.29 [facility] [address] [place] [address] January, Lumbago with sciatica, left side M54.42 [facility] [address] [place] [address] January, [facility] [address] [place] [address] January, Lumbago of lumbar region with sciatica M 54.40 [facility] [address] [place] [address] January, Other chronic pain G89.29 and Lumbago wi th sciatica, left side M54.42 [facility] [address] [place] [address] January, Depression with anxiety F41.8 [facility] [address] [place] [address] January, Mixed hyperlipidemia E78.2 [facility] [address] [place] [address] January, Abscess of left groin L02.214 [facility] [address] [place] [address] Dec, Depression with anxiety F41.8 [facility] [address] [place] [address] Dec, Irregular periods N92.[address] [address] Nov, Left wrist pain M25.532 and Acute left a nkle pain M25.[address] [address] Nov, Post herpetic neuralgia B02.29 and Absce ss of left groin L02.[address] [address] Sep, Irregular periods N92.[address] [address] Sep, Mixed hyperlipidemia E78.2 ; Flank pain R10.9 and Post herpetic neuralgia B02.[address] [address] Aug, Lumbago of lumbar region with sciatica M 54.40 ; Chronic idiopathic constipation K59.09 ; Depression with anxiety F41.8 and Mixed hyperlipidemia E78.[address] [address] Aug, Other chronic pain G89.[address] [address] Aug, Reactive airway disease, mild persistent , uncomplicated J45.[address] [address] 07 Aug, [address] [address] Aug, Cough R05 and Allergic contact dermatiti s due to other agents L23.[address] [address] 05 Aug, [address] [address] Jul, Other chronic pain G89.[address] [address] Jul, Upper respiratory tract infection, unspe cified type J06.9 ; Chronic GERD K21.9 ; Acute left ankle pain M25.572 and Lumbago of lumbar region with sciatica M54.[address] [address] Jun, Other chronic pain G89.[address] [address] Jun, [address] [address] Jun, [address] [address] Jun, Chronic GERD K21.[address] [address] Jun, [address] [address] May, Pain in right wrist M25.531 ; Left wrist pain M25.532 ; Acute left ankle pain M25.572 ; Thoracic spine pain M54.6 ; Lumbago with sciatica, left side M54.42 ; Other chronic pain G89.29 and Dysuria R30.[address] [address] May, Chronic GERD K21.[address] [address] May, Chronic GERD K21.[address] [address] May, [address] [address] May, [address] [address] May, [address] [address] May, [address] [address] May, Mixed hyperlipidemia E78.2 ; Fibromyalgi a M79.7 ; Depression with anxiety F41.8 ; Lumbago of lumbar region with sciatica M54.40 ; Encounter to establish care Z76.89 ; Chronic GERD K21.9 ; History of gestational diabetes Z86.32 ; Chronic idiopathic constipation K59.09 ; Thyroid disorder screen Z13.29 and Need for influenza vaccination Z23 [facility] [address] [place] [address] Apr, Gestational diabetes O24.419 [facility] [address] [place] [address] Feb, Gestational diabetes O24.419 IMMUNIZATIONS No Known Immunizations SOCIAL HISTORY Never Assessed REASON FOR VISIT bilateral hips PLAN OF CARE VITAL SIGNS MEDICATIONS Unknown [...] History Fused L ankle 09/2017 Hospitalization History [facility]- Hyperglycemia and February 2016 Hospitalization History Ankle surgery 09/2017
--- OUTSIDE RECORDS SUMMARY | 2020-03-15 21:22 | XMS REPORT ---
Author Author Solange Sultana [employer] Address [address], [place] [id number] Care Team Providers Care Clinical Psychologist Licensed Name Role Phone Felisha Sultana Unavailable PROBLEMS Type Condition ICD9-CM Code WHE57-WD Code Onset Dates Condition S tatus SNOMED Code Problem Gestational diabetes O24.419 Active 08714310 Problem Prediabetes R73.09 Active 61806131 2 Problem History of gestational diabetes Z86.32 Active 983657294 Problem Depression with anxiety F41.8 Active 178892912 Problem Fibromyalgia M79.7 Active 7121918 05 Problem Abscess, axilla L02.419 Active 1380 2001 Problem Mild persistent asthma without complication J45.30 Active 321916383 Problem Lumbago with sciatica, left side M54.42 Active 412467384 Problem Thoracic spine pain M54.6 Active 234250490 Problem Other chronic pain G89.29 Active 8 7392674 Problem Pain in right wrist M25.531 Active 73401074 Problem Plantar fasciitis M72.2 Active 20 7197320 Problem Left wrist pain M25.532 Active 5660 8008 Problem Chronic GERD K21.9 Active 8099693 09 Problem Mixed hyperlipidemia E78.2 Active 829184765 Problem Lumbago of lumbar region with sciatica M54.40 Active 32227648 Problem Chronic idiopathic constipation K59.09 Active 20129326 Problem Acute left ankle pain M25.572 Active 41632683150829 Problem Vitamin D deficiency E55.9 Active 90545082 Problem Other elevated white blood cell (WBC) count D72.82 8 Active 263714290 Problem Other fatigue R53.83 Active 301617 01 Problem Absent periods N91.2 Active 65063 001 Problem Generalized anxiety disorder F41.1 A ctive 75110722 Problem Cervical pain M54.2 Active 376981 05 Problem Decreased hearing of left ear H91.92 Active 11264611 Problem Post herpetic neuralgia B02.29 Active 0141132 Problem Reactive airway disease, mild persistent, uncomplicated J45.30 Active 133063282886 Problem Prediabetes R73.03 Active 77074019 2 Problem Irregular periods N92.6 Active 80 239903 Problem Rosacea L71.9 Active 817158893 Problem Irritable bowel syndrome with diarrhea K58.0 Active 486938664 Problem Menstrual cramps N94.6 Active 431 914187 Problem Excessive daytime sleepiness G47.19 A ctive 106039353106 Problem Constipation by delayed colonic transit K59.01 Active 33547728 Problem Primary insomnia F51.01 Active 397 2004 Problem Vitamin B 12 deficiency E53.8 Active 531183196 Problem GERD with esophagitis K21.0 Active 083914637 Problem Pain in pelvis R10.2 Active 69263 006 Problem Right hip pain M25.551 Active 11961 6410095815 Problem Neck pain M54.2 Active 93325333 Problem Sleep apnea in adult G47.30 Active 78855963 Problem Elevated blood pressure reading R03.0 Active 76802124 Problem Bipolar disorder F31.9 Active 137 33659 Problem Left hand pain M79.642 Active 73067 3285897708 Problem Cigarette nicotine dependence, uncomplicated F17.2 10 Active 79264799 Problem Left hip pain M25.552 Active 163002 02 Problem Right anterior shoulder pain M25.511 A ctive 91662269 Problem Radiculopathy of lumbar region M54.16 Active 480093248 Problem Spinal stenosis, lumbar region without neurogeni c claudication M48.061 Active 17731168 ALLERGIES No Information ENCOUNTERS Encounter Location Date Diagnosis [address] [address] Apr, [address] [address] Apr, Bipolar disorder F31.9 ; Fibromyalgia M7 9.7 ; Depression with anxiety F41.8 ; Lumbago of lumbar region with sciatica M54.40 and Acute left ankle pain M25.[address] [address] Mar, Constipation by delayed colonic transit K59.01 ; Mixed hyperlipidemia E78.2 ; Depression with anxiety F41.8 ; Chronic GERD K21.9 and Bipolar disorder F31.[address] [address] Feb, Abscess L02.[address] [address] Dec, Chronic GERD K21.9 and Mixed hyperlipide sourav E78.[address] [address] Nov, [address] [address] Nov, [address] [address] Oct, Abscess, axilla L02.419 and Lumbago of l umbar region with sciatica M54.[address] [address] Oct, Fall, initial encounter W19.XXXA ; Right hip pain M25.551 ; Pain in pelvis R10.2 ; Right anterior shoulder pain M25.511 ; Left hip pain M25.552 ; Neck pain M54.2 ; Depression with anxiety F41.8 and Shingles B02.[address] [address] Oct, [address] [address] Oct, Sleep apnea in adult G47.[address] [address] Sep, Mixed hyperlipidemia E78.2 ; Prediabetes R73.09 ; Vitamin D deficiency E55.9 ; Fibromyalgia M79.7 ; Chronic GERD K21.9 ; Radiculopathy of lumbar region M54.16 ; Spinal stenosis, lumbar region without neurogenic claudication M48.061 ; Vitamin B 12 deficiency E53.8 ; Depression with anxiety F41.8 ; Cervical pain M54.2 and Hospital discharge follow-up Z09 [address] [address] Sep, [facility] [address] [place] [address] Sep, [address] [address] Sep, Post herpetic neuralgia B02.[address] [address] Sep, Mixed hyperlipidemia E78.2 ; Vitamin D [...] congestion R09.81 and GERD with esophagitis K21.[address] [address] Aug, [address] [address] Aug, Depression with anxiety F41.8 and Primar y insomnia F51.[address] [address] Aug, Chronic GERD K21.[address] [address] Aug, [address] [address] Jul, Irregular periods N92.6 and Menstrual cr amps N94.[address] [address] Jul, [address] [address] Jul, [address] [address] Jul, Abscess L02.[address] [address] Jul, Mixed hyperlipidemia E78.2 ; Chronic ABDOUL D K21.9 and Generalized anxiety disorder F41.[address] [address] Jul, Well woman exam with routine gynecologic al exam Z01.419 ; Menstrual cramps N94.6 ; Acute left ankle pain M25.572 ; Snoring R06.83 and Excessive daytime sleepiness G47.[address] [address] Jun, Shingles B02.[address] [address] Jun, Pruritic dermatitis L29.9 and Rosacea L7 1.[address] [address] Jun, [address] [address] Jun, [address] [address] Jun, [address] [address] Jun, Butterfly rash R21 ; Influenza vaccine n eeded Z23 ; Prediabetes R73.09 ; Mixed hyperlipidemia E78.2 and Vitamin D deficiency E55.[address] [address] Apr, Left ankle swelling M25.[address] [address] Apr, [address] [address] Apr, [address] [address] Mar, Edema of left foot R60.[address] [address] Mar, Irritable bowel syndrome with diarrhea K 58.[address] [address] Mar, [facility] [address] [place] [address] Mar, [facility] [address] [place] [address] Mar, [facility] [address] [place] [address] Feb, Irritable bowel syndrome with diarrhea K 58.0 [facility] [address] [place] [address] Feb, [facility] [address] [place] [address] Feb, Irritable bowel syndrome with diarrhea K 58.0 [facility] [address] [place] [address] Feb, control counseling Z30.09 ; Lumbag o with sciatica, left side M54.42 and Chronic GERD K21.9 [facility] [address] [place] [address] Feb, [facility] [address] [place] [address] Feb, [facility] [address] [place] [address] Feb, [facility] [address] [place] [address] Feb, Diarrhea, unspecified type R19.7 [facility] [address] [place] [address] Feb, Abnormal glucose R73.09 [facility] [address] [place] [address] Feb, Abnormal glucose R73.09 [facility] [address] [place] [address] 05 Feb, 2018 Reactive airway disease, mild persistent , uncomplicated J45.30 [facility] [address] [place] [address] 04 Feb, 2018 Lumbago with sciatica, left side M54.42 ; Cigarette nicotine dependence, uncomplicated F17.210 ; Diarrhea, unspecified type R19.7 and Abnormal glucose R73.[address] [address] January, [address] [address] January, [address] [address] January, [address] [address] January, [address] [address] January, Muscle strain of chest wall, initial enc ounter S29.011A ; Physical exam Z00.00 ; Need for hepatitis vaccination Z23 and Abscess L02.[address] [address] Dec, Left hand pain M79.642 ; Thoracic spine pain M54.6 ; Cervical pain M54.2 and Elevated blood pressure reading R03.[address] [address] Dec, Lumbago with sciatica, left side M54.42 and Decreased hearing of left ear H91.[address] [address] Dec, Other chest pain R07.89 ; Finger pain, l eft M79.645 ; Chronic GERD K21.9 and Muscle strain of chest wall, initial encounter S29.011A [address] [address] Dec, [address] [address] Dec, Other constipation K59.09 ; Irregular pe riods N92.6 and Absent periods N91.[address] [address] Oct, [address] [address] Oct, Weight gain R63.[address] [address] Oct, Generalized anxiety disorder F41.[address] [address] Sep, [address] [address] Sep, Absent periods N91.2 and Decreased heari ng of left ear H91.[address] [address] Sep, [address] [address] Sep, Pre-op exam Z01.818 and Abscess of chest wall L02.[address] [address] Sep, [address] [address] Sep, Prediabetes R73.09 ; Vitamin D deficienc y E55.9 ; Mixed hyperlipidemia E78.2 and Arthritis of ankle, left M19.[address] [address] Sep, Smoking trying to quit Z72.0 ; Chronic G ERD K21.9 ; Generalized anxiety disorder F41.1 ; Other chest pain R07.89 ; Other constipation K59.09 and Right upper quadrant pain R10.[address] [address] Aug, [address] [address] Aug, Other chronic pain G89.[address] [address] Aug, Mixed hyperlipidemia E78.2 ; Fibromyalgi a M79.7 ; Lumbago of lumbar region with sciatica M54.40 ; History of gestational diabetes Z86.32 ; Prediabetes R73.09 ; Vitamin D deficiency E55.9 ; Weight gain R63.5 ; control counseling Z30.09 ; Pain, dental K08.89 and Flank pain R10.9 [facility] [address] [place] [address] Aug, [facility] [address] [place] [address] Jun, Acute left ankle pain M25.572 [facility] [address] [place] [address] Jun, [facility] [address] [place] [address] Jun, [facility] [address] [place] [address] Jun, Acute left ankle pain M25.572 [facility] [address] [place] [address] Jun, [facility] [address] [place] [address] Jun, Acute left ankle pain M25.572 [facility] [address] [place] [address] Jun, Influenza vaccine needed Z23 and Irregul ar periods N92.6 [facility] [address] [place] [address] May, Mixed hyperlipidemia E78.2 [facility] [address] [place] [address] May, [facility] [address] [place] [address] May, Chronic GERD K21.9 [facility] [address] [place] [address] Apr, Weight gain R63.5 [facility] [address] [place] [address] Apr, Chronic GERD K21.9 and Weight gain R63.5 [facility] [address] [place] [address] Mar, Depression with anxiety F41.8 and Chroni c idiopathic constipation K59.09 [facility] [address] [place] [address] Mar, Other chronic pain G89.[address] [address] Mar, Post herpetic neuralgia B02.[address] [address] Mar, Post herpetic neuralgia B02.[address] [address] Mar, [address] [address] Mar, Other elevated white blood cell (WBC) co unt D72.[address] [address] Mar, Other elevated white blood cell (WBC) co unt D72.828 and Dyslipidemia E78.[address] [address] Feb, [address] [address] Feb, Vitamin D deficiency E55.9 ; Dyslipidemi a E78.5 ; Other elevated white blood cell (WBC) count D72.828 and Skin tag L91.[address] [address] Feb, [address] [address] Feb, Vitamin D deficiency E55.9 and Dyslipide sourav E78.[address] [address] Feb, [address] [address] Feb, Post herpetic neuralgia B02.29 ; Thyroid disorder screen Z13.29 ; Mixed hyperlipidemia E78.2 ; Chronic GERD K21.9 ; Lumbago of lumbar region with sciatica M54.40 ; Prediabetes R73.03 ; Other fatigue R53.83 ; Vitamin D deficiency E55.9 and Vitamin B 12 deficiency E53.8 [facility] [address] [place] [address] 23 Feb, 2017 Reactive airway disease, mild persistent , uncomplicated J45.30 [facility] [address] [place] [address] 23 Feb, 2017 Chronic GERD K21.9 [facility] [address] [place] [address] 23 Feb, 2017 Mixed hyperlipidemia E78.2 and Other chr onic pain G89.29 [facility] [address] [place] [address] Feb, Lumbago with sciatica, left side M54.42 ; Mixed hyperlipidemia E78.2 and Reactive airway disease, mild persistent, uncomplicated J45.30 [facility] [address] [place] [address] 20 Feb, 2017 Chronic GERD K21.9 [facility] [address] [place] [address] 19 Feb, 2017 [facility] [address] [place] [address] Feb, [facility] [address] [place] [address] 16 Feb, 2017 Post herpetic neuralgia B02.[address] [address] 16 Feb, 2017 Allergic contact dermatitis due to other agents L23.89 and Post herpetic neuralgia B02.29 [facility] [address] [place] [address] 16 Feb, 2017 Chronic GERD K21.9 [facility] [address] [place] [address] 13 Feb, 2017 Chronic GERD K21.9 [facility] [address] [place] [address] January, Post herpetic neuralgia B02.29 [facility] [address] [place] [address] January, Lumbago with sciatica, left side M54.42 [facility] [address] [place] [address] January, [facility] [address] [place] [address] January, Lumbago of lumbar region with sciatica M 54.40 [facility] [address] [place] [address] January, Other chronic pain G89.29 and Lumbago wi th sciatica, left side M54.42 [facility] [address] [place] [address] January, Depression with anxiety F41.8 [facility] [address] [place] [address] January, Mixed hyperlipidemia E78.2 [facility] [address] [place] [address] January, Abscess of left groin L02.[address] [address] Dec, Depression with anxiety F41.8 [facility] [address] [place] [address] Dec, Irregular periods N92.6 [facility] [address] [place] [address] Nov, Left wrist pain M25.532 and Acute left a nkle pain M25.572 [facility] [address] [place] [address] Nov, Post herpetic neuralgia B02.29 and Absce ss of left groin L02.214 [facility] [address] [place] [address] Sep, Irregular periods N92.6 [facility] [address] [place] [address] Sep, Mixed hyperlipidemia E78.2 ; Flank pain R10.9 and Post herpetic neuralgia B02.29 [facility] [address] [place] [address] Aug, Lumbago of lumbar region with sciatica M 54.40 ; Chronic idiopathic constipation K59.09 ; Depression with anxiety F41.8 and Mixed hyperlipidemia E78.[address] [address] Aug, Other chronic pain G89.[address] [address] Aug, Reactive airway disease, mild persistent , uncomplicated J45.[address] [address] Aug, [address] [address] Aug, Cough R05 and Allergic contact dermatiti s due to other agents L23.[address] [address] Aug, [address] [address] Jul, Other chronic pain G89.[address] [address] Jul, Upper respiratory tract infection, unspe cified type J06.9 ; Chronic GERD K21.9 ; Acute left ankle pain M25.572 and Lumbago of lumbar region with sciatica M54.[address] [address] Jun, Other chronic pain G89.[address] [address] Jun, [address] [address] Jun, [address] [address] Jun, Chronic GERD K21.[address] [address] Jun, [address] [address] May, Pain in right wrist M25.531 ; Left wrist pain M25.532 ; Acute left ankle pain M25.572 ; Thoracic spine pain M54.6 ; Lumbago with sciatica, left side M54.42 ; Other chronic pain G89.29 and Dysuria R30.0 [facility] [address] [place] [address] May, Chronic GERD K21.9 [facility] [address] [place] [address] May, Chronic GERD K21.9 [facility] [address] [place] [address] May, [facility] [address] [place] [address] May, [facility] [address] [place] [address] May, [facility] [address] [place] [address] May, [facility] [address] [place] [address] May, Mixed hyperlipidemia E78.2 ; Fibromyalgi a M79.7 ; Depression with anxiety F41.8 ; Lumbago of lumbar region with sciatica M54.40 ; Encounter to establish care Z76.89 ; Chronic GERD K21.9 ; History of gestational diabetes Z86.32 ; Chronic idiopathic constipation K59.09 ; Thyroid disorder screen Z13.29 and Need for influenza vaccination Z23 [facility] [address] [place] [address] Apr, Gestational diabetes O24.419 [facility] [address] [place] [address] Feb, Gestational diabetes O24.419 IMMUNIZATIONS No Known Immunizations SOCIAL HISTORY Never Assessed REASON FOR VISIT Call back PLAN OF CARE VITAL SIGNS MEDICATIONS Unknown [...] History Fused L ankle 09/2017 Hospitalization History [facility]- Hyperglycemia and February 2016 Hospitalization History Ankle surgery 09/2017
--- OUTSIDE RECORDS SUMMARY | 2020-03-15 21:22 | XMS REPORT ---
Author Author Solange Sultana [facility] Address [address] [place], [place] [id number] Care Team Providers Care Smoking Tobacco Packer Hand Name Role Phone Felisha Sultana Unavailable PROBLEMS Type Condition ICD9-CM Code [id number] Code Onset Dates Condition S tatus SNOMED Code Problem Gestational diabetes O24.419 Active 82069751 Problem Prediabetes R73.09 Active 12606844 2 Problem History of gestational diabetes Z86.32 Active 115292307 Problem Depression with anxiety F41.8 Active 337915877 Problem Fibromyalgia M79.7 Active 7991854 05 Problem Abscess, axilla L02.419 Active 1380 2001 Problem Mild persistent asthma without complication J45.30 Active 536828030 Problem Lumbago with sciatica, left side M54.42 Active 057943408 Problem Thoracic spine pain M54.6 Active 946862632 Problem Other chronic pain G89.29 Active 8 8324499 Problem Pain in right wrist M25.531 Active 67126515 Problem Plantar fasciitis M72.2 Active 20 7277480 Problem Left wrist pain M25.532 Active 5660 8008 Problem Chronic GERD K21.9 Active 3592287 09 Problem Mixed hyperlipidemia E78.2 Active 042619660 Problem Lumbago of lumbar region with sciatica M54.40 Active 99857251 Problem Chronic idiopathic constipation K59.09 Active 24606256 Problem Acute left ankle pain M25.572 Active 60463834134396 Problem Vitamin D deficiency E55.9 Active 97165130 Problem Other elevated white blood cell (WBC) count D72.82 8 Active 417362145 Problem Other fatigue R53.83 Active 526055 01 Problem Absent periods N91.2 Active 43992 001 Problem Generalized anxiety disorder F41.1 A ctive 36527600 Problem Cervical pain M54.2 Active 868788 05 Problem Decreased hearing of left ear H91.92 Active 22592498 Problem Post herpetic neuralgia B02.29 Active 8996302 Problem Reactive airway disease, mild persistent, uncomplicated J45.30 Active 633814866487 Problem Prediabetes R73.03 Active 03457282 2 Problem Irregular periods N92.6 Active 80 048763 Problem Rosacea L71.9 Active 707659870 Problem Irritable bowel syndrome with diarrhea K58.0 Active 065448520 Problem Menstrual cramps N94.6 Active 431 634176 Problem Excessive daytime sleepiness G47.19 A ctive 849854592375 Problem Constipation by delayed colonic transit K59.01 Active 81853297 Problem Primary insomnia F51.01 Active 397 2004 Problem Vitamin B 12 deficiency E53.8 Active 094280972 Problem GERD with esophagitis K21.0 Active 838596100 Problem Pain in pelvis R10.2 Active 58930 006 Problem Right hip pain M25.551 Active 92710 7829708553 Problem Neck pain M54.2 Active 83314880 Problem Sleep apnea in adult G47.30 Active 57058882 Problem Elevated blood pressure reading R03.0 Active 01079757 Problem Bipolar disorder F31.9 Active 137 97007 Problem Left hand pain M79.642 Active 52934 6635645013 Problem Cigarette nicotine dependence, uncomplicated F17.2 10 Active 22875827 Problem Left hip pain M25.552 Active 369738 02 Problem Right anterior shoulder pain M25.511 A ctive 92488120 Problem Radiculopathy of lumbar region M54.16 Active 033404182 Problem Spinal stenosis, lumbar region without neurogeni c claudication M48.061 Active 23548846 ALLERGIES Substance Reaction Event Type Date Status Hydrocodone-Acetaminophen vomitting Drug Allergy Apr, Ac tive all medical tape rash Non Drug Allergy Apr, Active latex rash Non Drug Allergy Apr, Active Oxycodone HCl vomitting Drug Allergy Apr, Active ENCOUNTERS Encounter Location Date Diagnosis [facility] [address] [place] [address] Apr, [facility] [address] [place] [address] Apr, Bipolar disorder F31.9 ; Fibromyalgia M7 9.7 ; Depression with anxiety F41.8 ; Lumbago of lumbar region with sciatica M54.40 and Acute left ankle pain M25.[address] [address] Mar, Constipation by delayed colonic transit K59.01 ; Mixed hyperlipidemia E78.2 ; Depression with anxiety F41.8 ; Chronic GERD K21.9 and Bipolar disorder F31.[address] [address] Feb, Abscess L02.[address] [address] Dec, Chronic GERD K21.9 and Mixed hyperlipide sourav E78.[address] [address] Nov, [address] [address] Nov, [address] [address] Oct, Abscess, axilla L02.419 and Lumbago of l umbar region with sciatica M54.[address] [address] Oct, Fall, initial encounter W19.XXXA ; Right hip pain M25.551 ; Pain in pelvis R10.2 ; Right anterior shoulder pain M25.511 ; Left hip pain M25.552 ; Neck pain M54.2 ; Depression with anxiety F41.8 and Shingles B02.[address] [address] Oct, [address] [address] Oct, Sleep apnea in adult G47.[address] [address] Sep, Mixed hyperlipidemia E78.2 ; Prediabetes R73.09 ; Vitamin D deficiency E55.9 ; Fibromyalgia M79.7 ; Chronic GERD K21.9 ; Radiculopathy of lumbar region M54.16 ; Spinal stenosis, lumbar region without neurogenic claudication M48.061 ; Vitamin B 12 deficiency E53.8 ; Depression with anxiety F41.8 ; Cervical pain M54.2 and Hospital discharge follow-up Z09 [address] [address] Sep, [address] [address] Sep, [address] [address] Sep, Post herpetic neuralgia B02.[address] [address] Sep, Mixed hyperlipidemia E78.2 ; Vitamin D [...] congestion R09.81 and GERD with esophagitis K21.[address] [address] Aug, [address] [address] Aug, Depression with anxiety F41.8 and Primar y insomnia F51.[address] [address] 13 Aug, 2018 Chronic GERD K21.[address] [address] Aug, [address] [address] 15 Jul, 2018 Irregular periods N92.6 and Menstrual cr amps N94.[address] [address] 14 Jul, [address] [address] Jul, [facility] [address] [place] [address] Jul, Abscess L02.[address] [address] Jul, Mixed hyperlipidemia E78.2 ; Chronic ABDOUL D K21.9 and Generalized anxiety disorder F41.[address] [address] Jul, Well woman exam with routine gynecologic al exam Z01.419 ; Menstrual cramps N94.6 ; Acute left ankle pain M25.572 ; Snoring R06.83 and Excessive daytime sleepiness G47.[address] [address] Jun, Shingles B02.[address] [address] Jun, Pruritic dermatitis L29.9 and Rosacea L7 1.[address] [address] Jun, [address] [address] Jun, [address] [address] Jun, [address] [address] Jun, Butterfly rash R21 ; Influenza vaccine n eeded Z23 ; Prediabetes R73.09 ; Mixed hyperlipidemia E78.2 and Vitamin D deficiency E55.[address] [address] Apr, Left ankle swelling M25.[address] [address] Apr, [facility] [address] [place] [address] Apr, [address] [address] Mar, Edema of left foot R60.0 [facility] [address] [facility] [place] [address] Mar, Irritable bowel syndrome with diarrhea K 58.0 [facility] [address] [place] [address] Mar, [facility] [address] [place] [address] Mar, [facility] [address] [place] [address] Mar, [facility] [address] [place] [address] Feb, Irritable bowel syndrome with diarrhea K 58.0 [facility] [address] [place] [address] Feb, [facility] [address] [place] [address] Feb, Irritable bowel syndrome with diarrhea K 58.0 [facility] [address] [place] [address] Feb, control counseling Z30.09 ; Lumbag o with sciatica, left side M54.42 and Chronic GERD K21.9 [facility] [address] [place] [address] Feb, [facility] [address] [place] [address] Feb, [facility] [address] [place] [address] Feb, [facility] [address] [place] [address] Feb, Diarrhea, unspecified type R19.7 [facility] [address] [place] [address] Feb, Abnormal glucose R73.09 [facility] [address] [place] [address] Feb, Abnormal glucose R73.09 [facility] [address] [place] [address] 05 Feb, 2018 Reactive airway disease, mild persistent , uncomplicated J45.30 [facility] [address] [place] [address] Feb, Lumbago with sciatica, left side M54.42 ; Cigarette nicotine dependence, uncomplicated F17.210 ; Diarrhea, unspecified type R19.7 and Abnormal glucose R73.[address] [address] January, [address] [address] January, [address] [address] January, [address] [address] January, [address] [address] January, Muscle strain of chest wall, initial enc ounter S29.011A ; Physical exam Z00.00 ; Need for hepatitis vaccination Z23 and Abscess L02.[address] [address] Dec, Left hand pain M79.642 ; Thoracic spine pain M54.6 ; Cervical pain M54.2 and Elevated blood pressure reading R03.[address] [address] Dec, Lumbago with sciatica, left side M54.42 and Decreased hearing of left ear H91.[address] [address] Dec, Other chest pain R07.89 ; Finger pain, l eft M79.645 ; Chronic GERD K21.9 and Muscle strain of chest wall, initial encounter S29.011A [address] [address] Dec, [address] [address] Dec, Other constipation K59.09 ; Irregular pe riods N92.6 and Absent periods N91.[address] [place] [address] 13 Oct, [address] [address] Oct, Weight gain R63.[address] [address] Oct, Generalized anxiety disorder F41.[address] [address] Sep, [address] [address] Sep, Absent periods N91.2 and Decreased heari ng of left ear H91.[address] [address] Sep, [address] [address] Sep, Pre-op exam Z01.818 and Abscess of chest wall L02.[address] [address] Sep, [address] [address] Sep, Prediabetes R73.09 ; Vitamin D deficienc y E55.9 ; Mixed hyperlipidemia E78.2 and Arthritis of ankle, left M19.[address] [address] Sep, Smoking trying to quit Z72.0 ; Chronic G ERD K21.9 ; Generalized anxiety disorder F41.1 ; Other chest pain R07.89 ; Other constipation K59.09 and Right upper quadrant pain R10.[address] [address] Aug, [address] [address] Aug, Other chronic pain G89.[address] [address] Aug, Mixed hyperlipidemia E78.2 ; Fibromyalgi a M79.7 ; Lumbago of lumbar region with sciatica M54.40 ; History of gestational diabetes Z86.32 ; Prediabetes R73.09 ; Vitamin D deficiency E55.9 ; Weight gain R63.5 ; control counseling Z30.09 ; Pain, dental K08.89 and Flank pain R10.9 [facility] [address] [place] [address] Aug, [facility] [address] [place] [address] Jun, Acute left ankle pain M25.572 [facility] [address] [place] [address] Jun, [facility] [address] [place] [address] Jun, [facility] [address] [place] [address] Jun, Acute left ankle pain M25.572 [facility] [address] [place] [address] Jun, [facility] [address] [place] [address] Jun, Acute left ankle pain M25.572 [facility] [address] [place] [address] Jun, Influenza vaccine needed Z23 and Irregul ar periods N92.6 [facility] [address] [place] [address] May, Mixed hyperlipidemia E78.2 [facility] [address] [place] [address] May, [facility] [address] [place] [address] May, Chronic GERD K21.9 [facility] [address] [place] [address] Apr, Weight gain R63.5 [facility] [address] [place] [address] Apr, Chronic GERD K21.9 and Weight gain R63.[address] [facility] [address] Mar, Depression with anxiety F41.8 and Chroni c idiopathic constipation K59.[address] [address] Mar, Other chronic pain G89.[address] [address] Mar, Post herpetic neuralgia B02.[address] [address] Mar, Post herpetic neuralgia B02.[address] [address] Mar, [address] [address] Mar, Other elevated white blood cell (WBC) co unt D72.[address] [address] Mar, Other elevated white blood cell (WBC) co unt D72.828 and Dyslipidemia E78.[address] [address] Feb, [address] [address] Feb, Vitamin D deficiency E55.9 ; Dyslipidemi a E78.5 ; Other elevated white blood cell (WBC) count D72.828 and Skin tag L91.[address] [address] Feb, [address] [address] Feb, Vitamin D deficiency E55.9 and Dyslipide sourav E78.[address] [address] Feb, [address] [address] Feb, Post herpetic neuralgia B02.29 ; Thyroid disorder screen Z13.29 ; Mixed hyperlipidemia E78.2 ; Chronic GERD K21.9 ; Lumbago of lumbar region with sciatica M54.40 ; Prediabetes R73.03 ; Other fatigue R53.83 ; Vitamin D deficiency E55.9 and Vitamin B 12 deficiency E53.[address] [address] Feb, Reactive airway disease, mild persistent , uncomplicated J45.[address] [address] Feb, Chronic GERD K21.[address] [address] Feb, Mixed hyperlipidemia E78.2 and Other chr onic pain G89.[address] [address] Feb, Lumbago with sciatica, left side M54.42 ; Mixed hyperlipidemia E78.2 and Reactive airway disease, mild persistent, uncomplicated J45.[address] [address] Feb, Chronic GERD K21.[address] [address] Feb, [address] [address] Feb, [address] [address] 16 Feb, 2017 Post herpetic neuralgia B02.[address] [address] Feb, Allergic contact dermatitis due to other agents L23.89 and Post herpetic neuralgia B02.[address] [address] Feb, Chronic GERD K21.[address] [address] 13 Feb, 2017 Chronic GERD K21.[address] [address] January, Post herpetic neuralgia B02.29 [facility] [address] [place] [address] January, Lumbago with sciatica, left side M54.42 [facility] [address] [place] [address] January, [facility] [address] [place] [address] January, Lumbago of lumbar region with sciatica M 54.40 [facility] [address] [place] [address] January, Other chronic pain G89.29 and Lumbago wi th sciatica, left side M54.42 [facility] [address] [place] [address] January, Depression with anxiety F41.8 [facility] [address] [place] [address] January, Mixed hyperlipidemia E78.2 [facility] [address] [place] [address] January, Abscess of left groin L02.214 [facility] [address] [place] [address] Dec, Depression with anxiety F41.8 [facility] [address] [place] [address] Dec, Irregular periods N92.6 [facility] [address] [place] [address] Nov, Left wrist pain M25.532 and Acute left a nkle pain M25.572 [facility] [address] [place] [address] Nov, Post herpetic neuralgia B02.29 and Absce ss of left groin L02.214 [facility] [address] [place] [address] Sep, Irregular periods N92.6 [facility] [address] [place] [address] Sep, Mixed hyperlipidemia E78.2 ; Flank pain R10.9 and Post herpetic neuralgia B02.[address] [address] Aug, Lumbago of lumbar region with sciatica M 54.40 ; Chronic idiopathic constipation K59.09 ; Depression with anxiety F41.8 and Mixed hyperlipidemia E78.[address] [address] Aug, Other chronic pain G89.[address] [address] Aug, Reactive airway disease, mild persistent , uncomplicated J45.[address] [address] Aug, [address] [address] Aug, Cough R05 and Allergic contact dermatiti s due to other agents L23.[address] [address] Aug, [address] [address] Jul, Other chronic pain G89.[address] [address] Jul, Upper respiratory tract infection, unspe cified type J06.9 ; Chronic GERD K21.9 ; Acute left ankle pain M25.572 and Lumbago of lumbar region with sciatica M54.[address] [address] Jun, Other chronic pain G89.[address] [address] Jun, [address] [address] Jun, [address] [address] Jun, Chronic GERD K21.[address] [address] Jun, [facility] [address] [place] [address] 30 May, 2016 Pain in right wrist M25.531 ; Left wrist pain M25.532 ; Acute left ankle pain M25.572 ; Thoracic spine pain M54.6 ; Lumbago with sciatica, left side M54.42 ; Other chronic pain G89.29 and Dysuria R30.0 [facility] [address] [place] [address] 29 May, 2016 Chronic GERD K21.9 [facility] [address] [place] [address] 23 May, 2016 Chronic GERD K21.[address] [address] May, [address] [address] 19 May, 2016 [facility] [address] [place] [address] 16 May, 2016 [facility] [address] [place] [address] 16 May, 2016 [facility] [address] [place] [address] 16 May, 2016 Mixed hyperlipidemia E78.2 ; Fibromyalgi a M79.7 ; Depression with anxiety F41.8 ; Lumbago of lumbar region with sciatica M54.40 ; Encounter to establish care Z76.89 ; Chronic GERD K21.9 ; History of gestational diabetes Z86.32 ; Chronic idiopathic constipation K59.09 ; Thyroid disorder screen Z13.29 and Need for influenza vaccination Z23 [facility] [address] [place] [phone] Apr, Gestational diabetes O24.419 [facility] [address] [place] [phone] Feb, Gestational diabetes O24.419 IMMUNIZATIONS No Known Immunizations SOCIAL HISTORY Never Assessed REASON FOR VISIT fu PLAN OF CARE Activity Details Follow Up 3 Months, prn Reason: VITAL SIGNS Height 69.5 in 2019-04-30 Weight 330.6 lbs 2019-04-30 Temperature 98.5 degrees Fahrenheit 2019-04-30 Heart Rate 81 /min 2019-04-30 Respiratory Rate 18 /min 2019-04-30 Oximetry 94 % 2019-04-30 BMI 48.12 kg/m2 2019-04-30 Blood pressure systolic 142 mm Hg 2019-04-30 Blood pressure diastolic 88 mm Hg 2019-04-30 MEDICATIONS Medication Instructions Dosage Frequency Start Date End Date Duration S tatus Pravastatin Sodium 20 MG TAKE 1 TABLET BY MOUTH EVERY NIGHT AT BEDTIME 90 Active Multivitamin Adult - Act nancy Omeprazole 40 MG Orally Once a day QHS 1 capsule Mar, 30 day(s) Active Cyclobenzaprine HCl 10 MG TAKE 1 TABLET BY MOUTH THREE (3) T IMES DAILY 10 Active Dexilant 60 MG Orally Once a day 1 capsule 24h Sep, 30 day(s) Active Mobic 15 MG Orally Once a day 1 tablet 24h Jul, 90 d ays Active Pantoprazole Sodium 40 MG Orally BID 1 tablet 12h Jul, 30 days Active Ventolin HFA 108 (90 Base) MCG/ACT Inhalation every 6 hrs 2 puffs a s needed 6h Sep, 30 days Active Gabapentin 800 MG Orally QID 1 tablet 6h Ac tive Quetiapine Fumarate 25 MG Orally Once a day 2 tablets at bedtime 24 h Aug, 30 day(s) Active Ventolin HFA 108 (90 Base) MCG/ACT Inhalation every 4 hrs 2 puffs a s needed 4h Aug, 30 days Active Esomeprazole Magnesium 40 MG Orally Once a day in the morning 1 cap celeste Mar, 30 day(s) Active Tramadol HCl 50 MG Orally Three times daily take 1-2 tablet by mouth three times daily 30 Active Lamotrigine 25 MG Orally twice daily 1 tablet Mar, 30 day(s) Active Colace 100 MG Orally Once a day 1 capsule as needed 24h 30 Active Lidocaine 0.5 % Externally Three times a day 2.5 grams as needed 8h Aug, 30 days Active Nortriptyline HCl 25 MG Orally QHS 1 capsule 30 Active Ondansetron 4 MG Orally every 4 hrs 1 tablet on the tong ue and allow to dissolve as needed 4h Active Sertraline HCl 100 MG Orally Once a day 2 tablet 24h 30 days Active Bactrim DS 800-160 MG Orally Twice a day 1 tablet 12h Feb, 10 day(s) Active Dicyclomine HCl 20 MG Orally Four times a day 1 tablet 6h 30 day(s) Active Abilify 10 MG Orally Once a day 1 tablet 24h Sep, 30 day(s) Active Cleocin-T 1 % Externally Apply a thin film to affected area twice daily 1 application to affected area Jun, Active Aripiprazole 10 MG Orally Once a day 1 tablet 24h 30 day(s) Active RESULTS No Results PROCEDURES [...]
--- OUTSIDE RECORDS SUMMARY | 2020-03-15 21:22 | XMS REPORT ---
Author Author Solange Sultana [facility] Address [address], [place] [id number] Care Team Providers Care Muck Boss Name Role Phone Felisha Sultana Unavailable PROBLEMS Type Condition ICD9-CM Code EPB06-YO Code Onset Dates Condition S tatus SNOMED Code Problem Prediabetes R73.03 Active 53716669 2 Problem Other fatigue R53.83 Active 091012 01 Problem Vitamin D deficiency E55.9 Active 81363552 Problem Generalized anxiety disorder F41.1 A ctive 18087656 Problem History of gestational diabetes Z86.32 Active 759417638 Problem Other elevated white blood cell (WBC) count D72.82 8 Active 135821912 Problem Gestational diabetes O24.419 Active 75985243 Problem Decreased hearing of left ear H91.92 Active 61629155 Problem Fibromyalgia M79.7 Active 7115668 05 Problem Absent periods N91.2 Active 41612 001 Problem Prediabetes R73.09 Active 93361282 2 Problem Mild persistent asthma without complication J45.30 Active 845660454 Problem Reactive airway disease, mild persistent, uncomplicated J45.30 Active 414397505807 Problem Vitamin B 12 deficiency E53.8 Active 935974554 Problem Plantar fasciitis M72.2 Active 20 4692129 Problem Irregular periods N92.6 Active 80 094322 Problem Post herpetic neuralgia B02.29 Active 1011695 Problem Irritable bowel syndrome with diarrhea K58.0 Active 675244865 Problem Cigarette nicotine dependence, uncomplicated F17.2 10 Active 87193884 Problem Excessive daytime sleepiness G47.19 A ctive 479630511440 Problem Thoracic spine pain M54.6 Active 004718822 Problem Rosacea L71.9 Active 009274433 Problem Acute left ankle pain M25.572 Active 83588172317877 Problem Primary insomnia F51.01 Active 397 2004 Problem Pain in right wrist M25.531 Active 50206206 Problem Menstrual cramps N94.6 Active 431 266581 Problem Lumbago with sciatica, left side M54.42 Active 585155040 Problem GERD with esophagitis K21.0 Active 523226153 Problem Left wrist pain M25.532 Active 5660 8008 Problem Constipation by delayed colonic transit K59.01 Active 35742379 Problem Other chronic pain G89.29 Active 8 8415275 Problem Abscess, axilla L02.419 Active 1380 2001 Problem Pain in pelvis R10.2 Active 69400 006 Problem Right hip pain M25.551 Active 36731 2491142688 Problem Spinal stenosis, lumbar region without neurogeni c claudication M48.061 Active 94680786 Problem Left hand pain M79.642 Active 79548 1179618814 Problem Mixed hyperlipidemia E78.2 Active 528833094 Problem Sleep apnea in adult G47.30 Active 78875877 Problem Cervical pain M54.2 Active 570704 05 Problem Depression with anxiety F41.8 Active 361677049 Problem Chronic idiopathic constipation K59.09 Active 11222014 Problem Elevated blood pressure reading R03.0 Active 84312862 Problem Chronic GERD K21.9 Active 5430817 09 Problem Neck pain M54.2 Active 58544581 Problem Left hip pain M25.552 Active 661314 02 Problem Lumbago of lumbar region with sciatica M54.40 Active 29398357 Problem Right anterior shoulder pain M25.511 A ctive 09179127 Problem Radiculopathy of lumbar region M54.16 Active 645334416 ALLERGIES No Information ENCOUNTERS Encounter Location Date Diagnosis [address] [address] Dec, Chronic GERD K21.9 and Mixed hyperlipide sourav E78.[address] [address] Nov, [address] [address] Nov, [address] [address] Oct, Abscess, axilla L02.419 and Lumbago of l umbar region with sciatica M54.[address] [address] Oct, Fall, initial encounter W19.XXXA ; Right hip pain M25.551 ; Pain in pelvis R10.2 ; Right anterior shoulder pain M25.511 ; Left hip pain M25.552 ; Neck pain M54.2 ; Depression with anxiety F41.8 and Shingles B02.[address] [address] Oct, [address] [address] Oct, Sleep apnea in adult G47.[address] [address] Sep, Mixed hyperlipidemia E78.2 ; Prediabetes R73.09 ; Vitamin D deficiency E55.9 ; Fibromyalgia M79.7 ; Chronic GERD K21.9 ; Radiculopathy of lumbar region M54.16 ; Spinal stenosis, lumbar region without neurogenic claudication M48.061 ; Vitamin B 12 deficiency E53.8 ; Depression with anxiety F41.8 ; Cervical pain M54.2 and Hospital discharge follow-up Z09 [address] [address] Sep, [address] [address] Sep, [address] [address] Sep, Post herpetic neuralgia B02.[address] [address] Sep, Mixed hyperlipidemia E78.2 ; Vitamin D [...] congestion R09.81 and GERD with esophagitis K21.0 [facility] [address] [place] [address] Aug, [address] [address] Aug, Depression with anxiety F41.8 and Primar y insomnia F51.[address] [address] Aug, Chronic GERD K21.[address] [address] Aug, [address] [address] 15 Jul, 2018 Irregular periods N92.6 and Menstrual cr amps N94.[address] [address] 14 Jul, [address] [address] 14 Jul, [address] [address] 12 Jul, 2018 Abscess L02.[address] [address] 06 Jul, 2018 Mixed hyperlipidemia E78.2 ; Chronic ABDOUL D K21.9 and Generalized anxiety disorder F41.[address] [address] 06 Jul, 2018 Well woman exam with routine gynecologic al exam Z01.419 ; Menstrual cramps N94.6 ; Acute left ankle pain M25.572 ; Snoring R06.83 and Excessive daytime sleepiness G47.[address] [address] Jun, Shingles B02.[address] [address] Jun, Pruritic dermatitis L29.9 and Rosacea L7 1.[address] [address] Jun, [facility] [address] [place] [address] Jun, [facility] [address] [place] [address] Jun, [facility] [address] [place] [address] Jun, Butterfly rash R21 ; Influenza vaccine n eeded Z23 ; Prediabetes R73.09 ; Mixed hyperlipidemia E78.2 and Vitamin D deficiency E55.9 [facility] [address] [place] [address], [place] [address] Apr, Left ankle swelling M25.[address] [place] [address] Apr, [facility] [address] [place] [address] Apr, [facility] [address] [place] [address] Mar, Edema of left foot R60.0 [facility] [address] [place] [address], [place] [address] Mar, Irritable bowel syndrome with diarrhea K 58.0 [facility] [address] [place] [address], [place] [address] Mar, [facility] [address] [place] [address] Mar, [facility] [address] [place] [address] Mar, [facility] [address] [place] [address] Feb, Irritable bowel syndrome with diarrhea K 58.0 [facility] [address] [place] [address], [place] [address] Feb, [facility] [address] [place] [address], [place] [address] Feb, Irritable bowel syndrome with diarrhea K 58.0 [facility] [address] [place] [address], [place] [address] Feb, control counseling Z30.09 ; Lumbag o with sciatica, left side M54.42 and Chronic GERD K21.[address] [address] Feb, [address] [address] Feb, [facility] [address] [place] [address] Feb, [address] [address] Feb, Diarrhea, unspecified type R19.[address] [address] Feb, Abnormal glucose R73.[address] [address] Feb, Abnormal glucose R73.[address] [address] Feb, Reactive airway disease, mild persistent , uncomplicated J45.[address] [address] Feb, Lumbago with sciatica, left side M54.42 ; Cigarette nicotine dependence, uncomplicated F17.210 ; Diarrhea, unspecified type R19.7 and Abnormal glucose R73.[address] [address] January, [address] [address] January, [address] [address] January, [address] [address] January, [address] [address] January, Muscle strain of chest wall, initial enc ounter S29.011A ; Physical exam Z00.00 ; Need for hepatitis vaccination Z23 and Abscess L02.[address] [address] Dec, Left hand pain M79.642 ; Thoracic spine pain M54.6 ; Cervical pain M54.2 and Elevated blood pressure reading R03.[address] [address] Dec, Lumbago with sciatica, left side M54.42 and Decreased hearing of left ear H91.[address] [address] Dec, Other chest pain R07.89 ; Finger pain, l eft M79.645 ; Chronic GERD K21.9 and Muscle strain of chest wall, initial encounter S29.011A [address] [address] Dec, [address] [address] Dec, Other constipation K59.09 ; Irregular pe riods N92.6 and Absent periods N91.[address] [address] Oct, [address] [address] Oct, Weight gain R63.[address] [address] Oct, Generalized anxiety disorder F41.[address] [address] Sep, [address] [address] Sep, Absent periods N91.2 and Decreased heari ng of left ear H91.[address] [address] Sep, [address] [address] Sep, Pre-op exam Z01.818 and Abscess of chest wall L02.[address] [address] Sep, [address] [address] Sep, Prediabetes R73.09 ; Vitamin D deficienc y E55.9 ; Mixed hyperlipidemia E78.2 and Arthritis of ankle, left M19.[address] [address] Sep, Smoking trying to quit Z72.0 ; Chronic G ERD K21.9 ; Generalized anxiety disorder F41.1 ; Other chest pain R07.89 ; Other constipation K59.09 and Right upper quadrant pain R10.[address] [address] Aug, [address] [address] Aug, Other chronic pain G89.[address] [address] Aug, Mixed hyperlipidemia E78.2 ; Fibromyalgi a M79.7 ; Lumbago of lumbar region with sciatica M54.40 ; History of gestational diabetes Z86.32 ; Prediabetes R73.09 ; Vitamin D deficiency E55.9 ; Weight gain R63.5 ; control counseling Z30.09 ; Pain, dental K08.89 and Flank pain R10.[address] [address] Aug, [address] [address] Jun, Acute left ankle pain M25.[address] [address] Jun, [address] [address] Jun, [address] [address] Jun, Acute left ankle pain M25.[address] [address] Jun, [address] [address] Jun, Acute left ankle pain M25.572 [facility] [address] [place] [address] Jun, Influenza vaccine needed Z23 and Irregul ar periods N92.6 [facility] [address] [place] [address] May, Mixed hyperlipidemia E78.2 [facility] [address] [place] [address] May, [facility] [address] [place] [address] May, Chronic GERD K21.9 [facility] [address] [place] [address] Apr, Weight gain R63.5 [facility] [address] [place] [address] Apr, Chronic GERD K21.9 and Weight gain R63.5 [facility] [address] [place] [address] Mar, Depression with anxiety F41.8 and Chroni c idiopathic constipation K59.09 [facility] [address] [place] [address] Mar, Other chronic pain G89.29 [facility] [address] [place] [address] Mar, Post herpetic neuralgia B02.29 [facility] [address] [place] [address] Mar, Post herpetic neuralgia B02.29 [facility] [address] [place] [address] Mar, [facility] [address] [place] [address] Mar, Other elevated white blood cell (WBC) co unt D72.828 [facility] [address] [place] [address] Mar, Other elevated white blood cell (WBC) co unt D72.828 and Dyslipidemia E78.[address] [address] Feb, [address] [address] Feb, Vitamin D deficiency E55.9 ; Dyslipidemi a E78.5 ; Other elevated white blood cell (WBC) count D72.828 and Skin tag L91.[address] [address] Feb, [address] [address] Feb, Vitamin D deficiency E55.9 and Dyslipide sourav E78.[address] [address] Feb, [address] [address] Feb, Post herpetic neuralgia B02.29 ; Thyroid disorder screen Z13.29 ; Mixed hyperlipidemia E78.2 ; Chronic GERD K21.9 ; Lumbago of lumbar region with sciatica M54.40 ; Prediabetes R73.03 ; Other fatigue R53.83 ; Vitamin D deficiency E55.9 and Vitamin B 12 deficiency E53.[address] [address] Feb, Reactive airway disease, mild persistent , uncomplicated J45.[address] [address] Feb, Chronic GERD K21.[address] [address] Feb, Mixed hyperlipidemia E78.2 and Other chr onic pain G89.[address] [address] Feb, Lumbago with sciatica, left side M54.42 ; Mixed hyperlipidemia E78.2 and Reactive airway disease, mild persistent, uncomplicated J45.[address] [address] Feb, Chronic GERD K21.9 [facility] [address] [place] [address] Feb, [facility] [address] [place] [address] Feb, [facility] [address] [place] [address] Feb, Post herpetic neuralgia B02.29 [facility] [address] [place] [address] Feb, Allergic contact dermatitis due to other agents L23.89 and Post herpetic neuralgia B02.29 [facility] [address] [place] [address] Feb, Chronic GERD K21.9 [facility] [address] [place] [address] Feb, Chronic GERD K21.9 [facility] [address] [place] [address] January, Post herpetic neuralgia B02.29 [facility] [address] [place] [address] January, Lumbago with sciatica, left side M54.42 [facility] [address] [place] [address] January, [facility] [address] [place] [address] January, Lumbago of lumbar region with sciatica M 54.40 [facility] [address] [place] [address] January, Other chronic pain G89.29 and Lumbago wi th sciatica, left side M54.42 [facility] [address] [place] [address] January, Depression with anxiety F41.8 [facility] [address] [place] [address] January, Mixed hyperlipidemia E78.2 [facility] [address] [place] [address] January, Abscess of left groin L02.214 [facility] [address] [place] [address] Dec, Depression with anxiety F41.8 [facility] [address] [place] [address] Dec, Irregular periods N92.6 [facility] [address] [place] [address] Nov, Left wrist pain M25.532 and Acute left a nkle pain M25.572 [facility] [address] [place] [address] Nov, Post herpetic neuralgia B02.29 and Absce ss of left groin L02.[address] [address] Sep, Irregular periods N92.[address] [address] Sep, Mixed hyperlipidemia E78.2 ; Flank pain R10.9 and Post herpetic neuralgia B02.[address] [address] Aug, Lumbago of lumbar region with sciatica M 54.40 ; Chronic idiopathic constipation K59.09 ; Depression with anxiety F41.8 and Mixed hyperlipidemia E78.[address] [address] 15 Aug, 2016 Other chronic pain G89.[address] [address] Aug, Reactive airway disease, mild persistent , uncomplicated J45.[address] [address] 07 Aug, [address] [address] Aug, Cough R05 and Allergic contact dermatiti s due to other agents L23.[address] [address] 05 Aug, [address] [address] Jul, Other chronic pain G89.29 [facility] [address] [place] [address] Jul, Upper respiratory tract infection, unspe cified type J06.9 ; Chronic GERD K21.9 ; Acute left ankle pain M25.572 and Lumbago of lumbar region with sciatica M54.[address] [address] Jun, Other chronic pain G89.29 [facility] [address] [place] [address] Jun, [address] [address] Jun, [address] [address] Jun, Chronic GERD K21.[address] [address] Jun, [address] [address] 30 May, 2016 Pain in right wrist M25.531 ; Left wrist pain M25.532 ; Acute left ankle pain M25.572 ; Thoracic spine pain M54.6 ; Lumbago with sciatica, left side M54.42 ; Other chronic pain G89.29 and Dysuria R30.[address] [address] May, Chronic GERD K21.[address] [address] May, Chronic GERD K21.[address] [address] May, [address] [address] May, [facility] [address] [place] [address] 16 May, [address] [address] May, [facility] [address] [place] [address] 16 May, 2016 Mixed hyperlipidemia E78.2 ; Fibromyalgi a M79.7 ; Depression with anxiety F41.8 ; Lumbago of lumbar region with sciatica M54.40 ; Encounter to establish care Z76.89 ; Chronic GERD K21.9 ; History of gestational diabetes Z86.32 ; Chronic idiopathic constipation K59.09 ; Thyroid disorder screen Z13.29 and Need for influenza vaccination Z23 [facility] [address] [place] [phone] Apr, Gestational diabetes O24.419 [facility] [address] [place] [phone] Feb, Gestational diabetes O24.419 IMMUNIZATIONS No Known Immunizations SOCIAL HISTORY Never Assessed REASON FOR VISIT PLAN OF CARE VITAL SIGNS MEDICATIONS Medication Instructions Dosage Frequency Start Date End Date Duration S tatus Nortriptyline HCl 25 MG Orally QHS 1 capsule 30 Active Mobic 15 MG Orally Once a day 1 tablet 24h Jul, 90 d ays Active Pantoprazole Sodium 40 MG Orally BID 1 tablet 12h Jul, 30 days Active Pravastatin Sodium 20 MG TAKE 1 TABLET BY MOUTH EVERY NIGHT AT BEDTIME 90 Active RESULTS No Results PROCEDURES No Known [...] History Fused L ankle 09/2017 Hospitalization History [facility]- Hyperglycemia and February 2016 Hospitalization History Ankle surgery 09/2017
--- OUTSIDE RECORDS SUMMARY | 2020-03-15 21:22 | XMS REPORT ---
Author Author Solange Sultana [facility] Address [address], [place] [id number] Care Team Providers Care Assistant Professor Surgical Technology Name Role Phone Felisha Sultana Unavailable PROBLEMS Type Condition ICD9-CM Code YBP74-YO Code Onset Dates Condition S tatus SNOMED Code Problem Gestational diabetes O24.419 Active 91324646 Problem Prediabetes R73.09 Active 75458694 2 Problem History of gestational diabetes Z86.32 Active 437579790 Problem Depression with anxiety F41.8 Active 311732183 Problem Fibromyalgia M79.7 Active 8497329 05 Problem Abscess, axilla L02.419 Active 1380 2001 Problem Mild persistent asthma without complication J45.30 Active 046992035 Problem Lumbago with sciatica, left side M54.42 Active 959246118 Problem Thoracic spine pain M54.6 Active 715260791 Problem Other chronic pain G89.29 Active 8 0541188 Problem Pain in right wrist M25.531 Active 13488438 Problem Plantar fasciitis M72.2 Active 20 2499945 Problem Left wrist pain M25.532 Active 5660 8008 Problem Chronic GERD K21.9 Active 8245470 09 Problem Mixed hyperlipidemia E78.2 Active 594264230 Problem Lumbago of lumbar region with sciatica M54.40 Active 99044924 Problem Chronic idiopathic constipation K59.09 Active 36218006 Problem Acute left ankle pain M25.572 Active 80937507099017 Problem Vitamin D deficiency E55.9 Active 99730420 Problem Other elevated white blood cell (WBC) count D72.82 8 Active 230117815 Problem Other fatigue R53.83 Active 833072 01 Problem Absent periods N91.2 Active 68802 001 Problem Generalized anxiety disorder F41.1 A ctive 37649304 Problem Cervical pain M54.2 Active 870996 05 Problem Decreased hearing of left ear H91.92 Active 85638301 Problem Post herpetic neuralgia B02.29 Active 0460046 Problem Reactive airway disease, mild persistent, uncomplicated J45.30 Active 806440768059 Problem Prediabetes R73.03 Active 39817946 2 Problem Irregular periods N92.6 Active 80 225185 Problem Rosacea L71.9 Active 895946443 Problem Irritable bowel syndrome with diarrhea K58.0 Active 354264114 Problem Menstrual cramps N94.6 Active 431 824860 Problem Excessive daytime sleepiness G47.19 A ctive 384363845193 Problem Constipation by delayed colonic transit K59.01 Active 20080088 Problem Primary insomnia F51.01 Active 397 2004 Problem Vitamin B 12 deficiency E53.8 Active 450280686 Problem GERD with esophagitis K21.0 Active 996640879 Problem Pain in pelvis R10.2 Active 04778 006 Problem Right hip pain M25.551 Active 91339 9630951767 Problem Neck pain M54.2 Active 01892958 Problem Sleep apnea in adult G47.30 Active 66425609 Problem Elevated blood pressure reading R03.0 Active 98898065 Problem Bipolar disorder F31.9 Active 137 46475 Problem Left hand pain M79.642 Active 64631 6583142068 Problem Cigarette nicotine dependence, uncomplicated F17.2 10 Active 71484537 Problem Left hip pain M25.552 Active 288273 02 Problem Right anterior shoulder pain M25.511 A ctive 10132810 Problem Radiculopathy of lumbar region M54.16 Active 306831403 Problem Spinal stenosis, lumbar region without neurogeni c claudication M48.061 Active 97604341 ALLERGIES No Information ENCOUNTERS Encounter Location Date Diagnosis [address] [address] Mar, Constipation by delayed colonic transit K59.01 ; Mixed hyperlipidemia E78.2 ; Depression with anxiety F41.8 ; Chronic GERD K21.9 and Bipolar disorder F31.[address] [address] Feb, Abscess L02.[address] [address] Dec, Chronic GERD K21.9 and Mixed hyperlipide sourav E78.[address] [address] Nov, [address] [address] Nov, [address] [address] Oct, Abscess, axilla L02.419 and Lumbago of l umbar region with sciatica M54.[address] [address] Oct, Fall, initial encounter W19.XXXA ; Right hip pain M25.551 ; Pain in pelvis R10.2 ; Right anterior shoulder pain M25.511 ; Left hip pain M25.552 ; Neck pain M54.2 ; Depression with anxiety F41.8 and Shingles B02.[address] [address] Oct, [address] [address] Oct, Sleep apnea in adult G47.[address] [address] Sep, Mixed hyperlipidemia E78.2 ; Prediabetes R73.09 ; Vitamin D deficiency E55.9 ; Fibromyalgia M79.7 ; Chronic GERD K21.9 ; Radiculopathy of lumbar region M54.16 ; Spinal stenosis, lumbar region without neurogenic claudication M48.061 ; Vitamin B 12 deficiency E53.8 ; Depression with anxiety F41.8 ; Cervical pain M54.2 and Hospital discharge follow-up Z09 [address] [address] Sep, [address] [address] Sep, [address] [address] Sep, Post herpetic neuralgia B02.[address] [address] Sep, Mixed hyperlipidemia E78.2 ; Vitamin D [...] congestion R09.81 and GERD with esophagitis K21.[address] [address] Aug, [address] [address] Aug, Depression with anxiety F41.8 and Primar y insomnia F51.[address] [address] 13 Aug, 2018 Chronic GERD K21.[address] [address] Aug, [address] [address] 15 Jul, 2018 Irregular periods N92.6 and Menstrual cr amps N94.[address] [address] 14 Jul, [address] [address] 14 Jul, [address] [address] 12 Jul, 2018 Abscess L02.[address] [address] 06 Jul, 2018 Mixed hyperlipidemia E78.2 ; Chronic ABDOUL D K21.9 and Generalized anxiety disorder F41.[address] [address] 06 Jul, 2018 Well woman exam with routine gynecologic al exam Z01.419 ; Menstrual cramps N94.6 ; Acute left ankle pain M25.572 ; Snoring R06.83 and Excessive daytime sleepiness G47.19 [facility] [place] [address] [place] [address] Jun, Shingles B02.9 [facility] [place] [address] [place] [address] Jun, Pruritic dermatitis L29.9 and Rosacea L7 1.9 [facility] [address] [place] [address] Jun, [facility] [place] [address] [place] [address] Jun, [facility] [address] [place] [address] Jun, [facility] [address] [place] [address] Jun, Butterfly rash R21 ; Influenza vaccine n eeded Z23 ; Prediabetes R73.09 ; Mixed hyperlipidemia E78.2 and Vitamin D deficiency E55.9 [facility] [address] [place] [address] Apr, Left ankle swelling M25.[address] [address] Apr, [facility] [address] [place] [address] Apr, [facility] [address] [address] Mar, Edema of left foot R60.0 [facility] [place] [address] [place] [address] Mar, Irritable bowel syndrome with diarrhea K 58.0 [facility] [place] [address] [place] [address] Mar, [facility] [address] [place] [address] Mar, [facility] [address] [place] [address] Mar, [facility] [address] [place] [address] Feb, Irritable bowel syndrome with diarrhea K 58.0 [facility] [address] [place] [address] Feb, [facility] [address] [place] [address] Feb, Irritable bowel syndrome with diarrhea K 58.0 [facility] [address] [place] [address] 19 Feb, 2018 control counseling Z30.09 ; Lumbag o with sciatica, left side M54.42 and Chronic GERD K21.9 [facility] [address] [place] [facility] [place] [address] Feb, [facility] [address] [place] [address] Feb, [facility] [address] [place] [address] Feb, [facility] [address] [place] [address] Feb, Diarrhea, unspecified type R19.7 [facility] [place] [address] [place] [address] Feb, Abnormal glucose R73.09 [facility] [address] [place] [address] Feb, Abnormal glucose R73.09 [facility] [address] [place] [address] 05 Feb, 2018 Reactive airway disease, mild persistent , uncomplicated J45.30 [facility] [place] [address] [place] [address] 04 Feb, 2018 Lumbago with sciatica, left side M54.42 ; Cigarette nicotine dependence, uncomplicated F17.210 ; Diarrhea, unspecified type R19.7 and Abnormal glucose R73.09 [facility] [address] [facility] [place] [address] January, [facility] [address] [place] [address] January, [facility] [address] [place] [address] January, [facility] [address] January, [address] [address] January, Muscle strain of chest wall, initial enc ounter S29.011A ; Physical exam Z00.00 ; Need for hepatitis vaccination Z23 and Abscess L02.[address] [address] Dec, Left hand pain M79.642 ; Thoracic spine pain M54.6 ; Cervical pain M54.2 and Elevated blood pressure reading R03.[address] [address] Dec, Lumbago with sciatica, left side M54.42 and Decreased hearing of left ear H91.[address] [address] Dec, Other chest pain R07.89 ; Finger pain, l eft M79.645 ; Chronic GERD K21.9 and Muscle strain of chest wall, initial encounter S29.011A [address] [address] Dec, [address] [address] Dec, Other constipation K59.09 ; Irregular pe riods N92.6 and Absent periods N91.[address] [address] Oct, [address] [address] Oct, Weight gain R63.[address] [address] Oct, Generalized anxiety disorder F41.[address] [address] Sep, [address] [address] Sep, Absent periods N91.2 and Decreased heari ng of left ear H91.[address] [address] Sep, [address] [address] Sep, Pre-op exam Z01.818 and Abscess of chest wall L02.[address] [address] Sep, [address] [address] Sep, Prediabetes R73.09 ; Vitamin D deficienc y E55.9 ; Mixed hyperlipidemia E78.2 and Arthritis of ankle, left M19.[address] [address] Sep, Smoking trying to quit Z72.0 ; Chronic G ERD K21.9 ; Generalized anxiety disorder F41.1 ; Other chest pain R07.89 ; Other constipation K59.09 and Right upper quadrant pain R10.[address] [address] Aug, [address] [address] Aug, Other chronic pain G89.[address] [address] 14 Aug, 2017 Mixed hyperlipidemia E78.2 ; Fibromyalgi a M79.7 ; Lumbago of lumbar region with sciatica M54.40 ; History of gestational diabetes Z86.32 ; Prediabetes R73.09 ; Vitamin D deficiency E55.9 ; Weight gain R63.5 ; control counseling Z30.09 ; Pain, dental K08.89 and Flank pain R10.[address] [address] Aug, [address] [address] Jun, Acute left ankle pain M25.[address] [address] Jun, [facility] [address] [place] [address] Jun, [facility] [address] [place] [address] Jun, Acute left ankle pain M25.572 [facility] [address] [place] [address] Jun, [facility] [address] [place] [address] Jun, Acute left ankle pain M25.572 [facility] [address] [place] [address] Jun, Influenza vaccine needed Z23 and Irregul ar periods N92.6 [facility] [address] [place] [address] May, Mixed hyperlipidemia E78.2 [facility] [address] [place] [address] May, [facility] [address] [place] [address] May, Chronic GERD K21.9 [facility] [address] [place] [address] Apr, Weight gain R63.5 [facility] [address] [place] [address] Apr, Chronic GERD K21.9 and Weight gain R63.5 [facility] [address] [place] [address] Mar, Depression with anxiety F41.8 and Chroni c idiopathic constipation K59.09 [facility] [address] [place] [address] Mar, Other chronic pain G89.29 [facility] [address] [place] [address] Mar, Post herpetic neuralgia B02.29 [facility] [address] [place] [address] Mar, Post herpetic neuralgia B02.29 [facility] [address] [address] Mar, [address] [address] Mar, Other elevated white blood cell (WBC) co unt D72.[address] [address] Mar, Other elevated white blood cell (WBC) co unt D72.828 and Dyslipidemia E78.[address] [address] Feb, [address] [address] Feb, Vitamin D deficiency E55.9 ; Dyslipidemi a E78.5 ; Other elevated white blood cell (WBC) count D72.828 and Skin tag L91.[address] [address] Feb, [address] [address] Feb, Vitamin D deficiency E55.9 and Dyslipide sourav E78.[address] [address] Feb, [address] [address] Feb, Post herpetic neuralgia B02.29 ; Thyroid disorder screen Z13.29 ; Mixed hyperlipidemia E78.2 ; Chronic GERD K21.9 ; Lumbago of lumbar region with sciatica M54.40 ; Prediabetes R73.03 ; Other fatigue R53.83 ; Vitamin D deficiency E55.9 and Vitamin B 12 deficiency E53.[address] [address] Feb, Reactive airway disease, mild persistent , uncomplicated J45.[address] [address] Feb, Chronic GERD K21.[address] [address] Feb, Mixed hyperlipidemia E78.2 and Other chr onic pain G89.29 [facility] [address] [place] [address] Feb, Lumbago with sciatica, left side M54.42 ; Mixed hyperlipidemia E78.2 and Reactive airway disease, mild persistent, uncomplicated J45.30 [facility] [address] [place] [address] 20 Feb, 2017 Chronic GERD K21.9 [facility] [address] [place] [address] Feb, [facility] [address] [place] [address] Feb, [facility] [address] [place] [address] Feb, Post herpetic neuralgia B02.29 [facility] [address] [place] [address] Feb, Allergic contact dermatitis due to other agents L23.89 and Post herpetic neuralgia B02.29 [facility] [address] [place] [address] Feb, Chronic GERD K21.9 [facility] [address] [place] [address] 13 Feb, 2017 Chronic GERD K21.9 [facility] [address] [place] [address] January, Post herpetic neuralgia B02.29 [facility] [address] [place] [address] January, Lumbago with sciatica, left side M54.42 [facility] [address] [place] [address] January, [facility] [address] [place] [address] January, Lumbago of lumbar region with sciatica M 54.40 [facility] [address] [place] [address] 05 Jan, 2017 Other chronic pain G89.29 and Lumbago wi th sciatica, left side M54.42 [facility] [address] [place] [address] January, Depression with anxiety F41.[address] [address] January, Mixed hyperlipidemia E78.[address] [address] January, Abscess of left groin L02.[address] [address] Dec, Depression with anxiety F41.[address] [address] Dec, Irregular periods N92.[address] [address] Nov, Left wrist pain M25.532 and Acute left a nkle pain M25.[address] [address] Nov, Post herpetic neuralgia B02.29 and Absce ss of left groin L02.[address] [address] Sep, Irregular periods N92.[address] [address] Sep, Mixed hyperlipidemia E78.2 ; Flank pain R10.9 and Post herpetic neuralgia B02.[address] [address] Aug, Lumbago of lumbar region with sciatica M 54.40 ; Chronic idiopathic constipation K59.09 ; Depression with anxiety F41.8 and Mixed hyperlipidemia E78.[address] [address] Aug, Other chronic pain G89.[address] [address] Aug, Reactive airway disease, mild persistent , uncomplicated J45.[address] [place] [address] Aug, [address] [address] Aug, Cough R05 and Allergic contact dermatiti s due to other agents L23.[address] [address] Aug, [address] [address] Jul, Other chronic pain G89.[address] [address] Jul, Upper respiratory tract infection, unspe cified type J06.9 ; Chronic GERD K21.9 ; Acute left ankle pain M25.572 and Lumbago of lumbar region with sciatica M54.[address] [address] Jun, Other chronic pain G89.[address] [address] Jun, [address] [address] Jun, [address] [address] Jun, Chronic GERD K21.[address] [address] Jun, [address] [address] 30 May, 2016 Pain in right wrist M25.531 ; Left wrist pain M25.532 ; Acute left ankle pain M25.572 ; Thoracic spine pain M54.6 ; Lumbago with sciatica, left side M54.42 ; Other chronic pain G89.29 and Dysuria R30.[address] [address] May, Chronic GERD K21.[address] [address] May, Chronic GERD K21.9 [facility] [address] [place] [address] May, [facility] [address] [place] [address] May, [facility] [address] [place] [address] May, [address] [address] May, [address] [address] May, Mixed hyperlipidemia E78.2 ; Fibromyalgi a M79.7 ; Depression with anxiety F41.8 ; Lumbago of lumbar region with sciatica M54.40 ; Encounter to establish care Z76.89 ; Chronic GERD K21.9 ; History of gestational diabetes Z86.32 ; Chronic idiopathic constipation K59.09 ; Thyroid disorder screen Z13.29 and Need for influenza vaccination Z23 [facility] [address] [place] [address] Apr, Gestational diabetes O24.419 [facility] [address] [place] [address] Feb, Gestational diabetes O24.419 IMMUNIZATIONS No Known Immunizations SOCIAL HISTORY Never Assessed REASON FOR VISIT refills PLAN OF CARE VITAL SIGNS MEDICATIONS Medication Instructions Dosage Frequency Start Date End Date Duration S tatus Esomeprazole Magnesium 40 MG Orally Once a day in the morning 1 cap celeste Mar, 30 day(s) Active Ventolin HFA 108 (90 Base) MCG/ACT Inhalation every 4 hrs 2 puffs a s needed 4h Aug, 30 days Active Omeprazole 40 MG Orally Once a day QHS 1 capsule Mar, 30 day(s) Active Sertraline HCl 100 MG Orally Once a day 2 tablet 24h 30 days Active Lidocaine 0.5 % Externally Three times a day 2.5 grams as needed 8h Aug, 30 days Active Pravastatin Sodium 20 MG TAKE 1 TABLET BY MOUTH EVERY NIGHT AT BEDTIME 90 Active Nortriptyline HCl 25 MG Orally QHS 1 capsule 30 Active Quetiapine Fumarate 25 MG Orally Once a day 2 tablets at bedtime 24 h Aug, 30 day(s) Active Pantoprazole Sodium 40 MG Orally BID 1 tablet 12h 09 Nov, 2016 30 days Active Ventolin HFA 108 (90 Base) MCG/ACT Inhalation every 6 hrs 2 puffs a s needed 6h Sep, 30 days Active Lamotrigine 25 MG Orally twice daily 1 tablet Mar, 30 day(s) Active Mobic 15 MG Orally Once a day 1 tablet 24h Jul, 90 d ays Active Dicyclomine HCl 20 MG Orally Four times a day 1 tablet 6h 30 day(s) Active Gabapentin 800 MG Orally QID 1 tablet 6h Ac tive Dexilant 60 MG Orally Once a day 1 capsule 24h Sep, 30 day(s) Active Colace 100 MG Orally Once a day 1 capsule as needed 24h 30 Active Ondansetron 4 MG Orally every 4 hrs 1 tablet on the tong ue and allow to dissolve as needed 4h Active Cyclobenzaprine HCl 10 MG TAKE 1 TABLET BY MOUTH THREE (3) T IMES DAILY 10 Active Bactrim DS 800-160 MG Orally Twice a day 1 tablet 12h Feb, 10 day(s) Active Tramadol HCl 50 MG Orally Three times daily take 1-2 tablet by mouth three times daily 30 Active Abilify 10 MG Orally Once a day 1 tablet 24h Sep, 30 day(s) Active Cleocin-T 1 % Externally Apply a thin film to affected area twice daily 1 application to affected area Jun, Active Multivitamin Adult - Act nancy RESULTS [...] History Fused L ankle 09/2017 Hospitalization History [facility]- Hyperglycemia and February 2016 Hospitalization History Ankle surgery 09/2017
--- OUTSIDE RECORDS SUMMARY | 2020-03-15 21:23 | XMS REPORT ---
Author Author Solange Sultana [facility] Address [address], [place] [id number] Care Team Providers Care Fire Chief Deputy Name Role Phone Felisha Sultana Unavailable PROBLEMS Type Condition ICD9-CM Code [id number] Code Onset Dates Condition S tatus SNOMED Code Problem Fibromyalgia M79.7 Active 1550910 05 Problem Prediabetes R73.09 Active 29475273 2 Problem Depression with anxiety F41.8 Active 111842660 Problem Mixed hyperlipidemia E78.2 Active 772621054 Problem Lumbago of lumbar region with sciatica M54.40 Active 34215364 Problem Chronic idiopathic constipation K59.09 Active 32868798 Problem Chronic GERD K21.9 Active 6347838 09 Problem Lumbago with sciatica, left side M54.42 Active 226657048 Problem Pain in right wrist M25.531 Active 54694710 Problem Absent periods N91.2 Active 33131 001 Problem Thoracic spine pain M54.6 Active 068802690 Problem Decreased hearing of left ear H91.92 Active 53519565 Problem Acute left ankle pain M25.572 Active 42846789770306 Problem Left hand pain M79.642 Active 48557 4663976935 Problem Elevated blood pressure reading R03.0 Active 85007930 Problem Cervical pain M54.2 Active 340245 05 Problem Primary insomnia F51.01 Active 397 2004 Problem Menstrual cramps N94.6 Active 431 189126 Problem Plantar fasciitis M72.2 Active 20 1066568 Problem Left wrist pain M25.532 Active 5660 8008 Problem Other chronic pain G89.29 Active 8 7763251 Problem Irritable bowel syndrome with diarrhea K58.0 Active 452477850 Problem Cigarette nicotine dependence, uncomplicated F17.2 10 Active 65802794 Problem Excessive daytime sleepiness G47.19 A ctive 615251183484 Problem Rosacea L71.9 Active 545408019 Problem Gestational diabetes O24.419 Active 81794304 Problem Irregular periods N92.6 Active 80 945660 Problem History of gestational diabetes Z86.32 Active 914048677 Problem Other fatigue R53.83 Active 175676 01 Problem Reactive airway disease, mild persistent, uncomplicated J45.30 Active 365194243171 Problem Post herpetic neuralgia B02.29 Active 8753400 Problem Other elevated white blood cell (WBC) count D72.82 8 Active 879034010 Problem Generalized anxiety disorder F41.1 A ctive 79244409 Problem Vitamin D deficiency E55.9 Active 69006665 Problem Prediabetes R73.03 Active 69378740 2 ALLERGIES No Information ENCOUNTERS Encounter Location Date Diagnosis [address] [address] Aug, [address] [address] Aug, [address] [address] Aug, Depression with anxiety F41.8 and Primar y insomnia F51.[address] [address] Aug, Chronic GERD K21.[address] [address] Aug, [address] [address] 15 Jul, 2018 Irregular periods N92.6 and Menstrual cr amps N94.[address] [address] Jul, [address] [address] Jul, [address] [address] Jul, Abscess L02.[address] [address] Jul, Mixed hyperlipidemia E78.2 ; Chronic ABDOUL D K21.9 and Generalized anxiety disorder F41.[address] [address] Jul, Well woman exam with routine gynecologic al exam Z01.419 ; Menstrual cramps N94.6 ; Acute left ankle pain M25.572 ; Snoring R06.83 and Excessive daytime sleepiness G47.19 [facility] [address] [place] [address] Jun, Shingles B02.[address] [address] Jun, Pruritic dermatitis L29.9 and Rosacea L7 1.9 [facility] [address] [place] [address] Jun, [address] [address] Jun, [facility] [address] [place] [address] Jun, [address] [address] Jun, Butterfly rash R21 ; Influenza vaccine n eeded Z23 ; Prediabetes R73.09 ; Mixed hyperlipidemia E78.2 and Vitamin D deficiency E55.[address] [address] Apr, Left ankle swelling M25.[address] [address] Apr, [address] [address] Apr, [address] [address] Mar, Edema of left foot R60.[address] [address] Mar, Irritable bowel syndrome with diarrhea K 58.[address] [address] Mar, [address] [address] Mar, [address] [address] Mar, [facility] [address] [place] [address] Feb, Irritable bowel syndrome with diarrhea K 58.0 [facility] [address] [place] [address] Feb, [facility] [address] [place] [address] Feb, Irritable bowel syndrome with diarrhea K 58.0 [facility] [address] [place] [address] Feb, control counseling Z30.09 ; Lumbag o with sciatica, left side M54.42 and Chronic GERD K21.9 [facility] [address] [place] [address] Feb, [facility] [address] [place] [address] Feb, [facility] [address] [place] [address] Feb, [facility] [address] [place] [address] 08 Feb, 2018 Diarrhea, unspecified type R19.7 [facility] [address] [place] [address] Feb, Abnormal glucose R73.09 [facility] [address] [place] [address] Feb, Abnormal glucose R73.09 [facility] [address] [place] [address] 05 Feb, 2018 Reactive airway disease, mild persistent , uncomplicated J45.30 [facility] [address] [place] [address] 04 Feb, 2018 Lumbago with sciatica, left side M54.42 ; Cigarette nicotine dependence, uncomplicated F17.210 ; Diarrhea, unspecified type R19.7 and Abnormal glucose R73.09 [facility] [address] [place] [address] January, [facility] [address] [place] [address] January, [facility] [address] [place] [address] January, [address] [address] January, [address] [address] January, Muscle strain of chest wall, initial enc ounter S29.011A ; Physical exam Z00.00 ; Need for hepatitis vaccination Z23 and Abscess L02.[address] [address] Dec, Left hand pain M79.642 ; Thoracic spine pain M54.6 ; Cervical pain M54.2 and Elevated blood pressure reading R03.[address] [address] Dec, Lumbago with sciatica, left side M54.42 and Decreased hearing of left ear H91.[address] [address] Dec, Other chest pain R07.89 ; Finger pain, l eft M79.645 ; Chronic GERD K21.9 and Muscle strain of chest wall, initial encounter S29.011A [address] [address] Dec, [address] [address] Dec, Other constipation K59.09 ; Irregular pe riods N92.6 and Absent periods N91.[address] [address] Oct, [address] [address] Oct, Weight gain R63.[address] [address] Oct, Generalized anxiety disorder F41.[address] [address] Sep, [address] [address] Sep, Absent periods N91.2 and Decreased heari ng of left ear H91.[address] [address] Sep, [address] [address] Sep, Pre-op exam Z01.818 and Abscess of chest wall L02.[address] [address] Sep, [address] [address] Sep, Prediabetes R73.09 ; Vitamin D deficienc y E55.9 ; Mixed hyperlipidemia E78.2 and Arthritis of ankle, left M19.[address] [address] Sep, Smoking trying to quit Z72.0 ; Chronic G ERD K21.9 ; Generalized anxiety disorder F41.1 ; Other chest pain R07.89 ; Other constipation K59.09 and Right upper quadrant pain R10.[address] [address] Aug, [address] [address] Aug, Other chronic pain G89.[address] [address] Aug, Mixed hyperlipidemia E78.2 ; Fibromyalgi a M79.7 ; Lumbago of lumbar region with sciatica M54.40 ; History of gestational diabetes Z86.32 ; Prediabetes R73.09 ; Vitamin D deficiency E55.9 ; Weight gain R63.5 ; control counseling Z30.09 ; Pain, dental K08.89 and Flank pain R10.[address] [address] Aug, [address] [address] Jun, Acute left ankle pain M25.572 [facility] [address] [place] [address] Jun, [facility] [address] [place] [address] Jun, [facility] [address] [place] [address] Jun, Acute left ankle pain M25.572 [facility] [address] [place] [address] Jun, [facility] [address] [place] [address] Jun, Acute left ankle pain M25.572 [facility] [address] [place] [address] Jun, Influenza vaccine needed Z23 and Irregul ar periods N92.6 [facility] [address] [place] [address] May, Mixed hyperlipidemia E78.2 [facility] [address] [place] [address] May, [facility] [address] [place] [address] May, Chronic GERD K21.9 [facility] [address] [place] [address] Apr, Weight gain R63.5 [facility] [address] [place] [address] Apr, Chronic GERD K21.9 and Weight gain R63.5 [facility] [address] [place] [address] Mar, Depression with anxiety F41.8 and Chroni c idiopathic constipation K59.09 [facility] [address] [place] [address] Mar, Other chronic pain G89.29 [facility] [address] [place] [address] Mar, Post herpetic neuralgia B02.[address] [address] Mar, Post herpetic neuralgia B02.[address] [address] Mar, [address] [address] Mar, Other elevated white blood cell (WBC) co unt D72.[address] [address] Mar, Other elevated white blood cell (WBC) co unt D72.828 and Dyslipidemia E78.[address] [address] Feb, [address] [address] Feb, Vitamin D deficiency E55.9 ; Dyslipidemi a E78.5 ; Other elevated white blood cell (WBC) count D72.828 and Skin tag L91.[address] [address] Feb, [address] [address] Feb, Vitamin D deficiency E55.9 and Dyslipide sourav E78.[address] [address] Feb, [address] [address] Feb, Post herpetic neuralgia B02.29 ; Thyroid disorder screen Z13.29 ; Mixed hyperlipidemia E78.2 ; Chronic GERD K21.9 ; Lumbago of lumbar region with sciatica M54.40 ; Prediabetes R73.03 ; Other fatigue R53.83 ; Vitamin D deficiency E55.9 and Vitamin B 12 deficiency E53.[address] [address] Feb, Reactive airway disease, mild persistent , uncomplicated J45.[address] [address] Feb, Chronic GERD K21.9 [facility] [address] [place] [address] Feb, Mixed hyperlipidemia E78.2 and Other chr onic pain G89.29 [facility] [address] [place] [address] Feb, Lumbago with sciatica, left side M54.42 ; Mixed hyperlipidemia E78.2 and Reactive airway disease, mild persistent, uncomplicated J45.30 [facility] [address] [place] [address] 20 Feb, 2017 Chronic GERD K21.9 [facility] [address] [place] [address] Feb, [facility] [address] [place] [address] Feb, [facility] [address] [place] [address] Feb, Post herpetic neuralgia B02.29 [facility] [address] [place] [address] Feb, Allergic contact dermatitis due to other agents L23.89 and Post herpetic neuralgia B02.29 [facility] [address] [place] [address] Feb, Chronic GERD K21.9 [facility] [address] [place] [address] Feb, Chronic GERD K21.9 [facility] [address] [place] [address] January, Post herpetic neuralgia B02.29 [facility] [address] [place] [address] January, Lumbago with sciatica, left side M54.42 [facility] [address] [place] [address] January, [facility] [address] [place] [address] January, Lumbago of lumbar region with sciatica M 54.40 [facility] [address] [place] [address] January, Other chronic pain G89.29 and Lumbago wi th sciatica, left side M54.42 [facility] [address] [place] [address] January, Depression with anxiety F41.8 [facility] [address] [place] [address] January, Mixed hyperlipidemia E78.2 [facility] [address] [place] [address] January, Abscess of left groin L02.[address] [address] Dec, Depression with anxiety F41.8 [facility] [address] [place] [address] Dec, Irregular periods N92.6 [facility] [address] [place] [address] Nov, Left wrist pain M25.532 and Acute left a nkle pain M25.572 [facility] [address] [place] [address] Nov, Post herpetic neuralgia B02.29 and Absce ss of left groin L02.214 [facility] [address] [place] [address] Sep, Irregular periods N92.6 [facility] [address] [place] [address] Sep, Mixed hyperlipidemia E78.2 ; Flank pain R10.9 and Post herpetic neuralgia B02.29 [facility] [address] [place] [address] Aug, Lumbago of lumbar region with sciatica M 54.40 ; Chronic idiopathic constipation K59.09 ; Depression with anxiety F41.8 and Mixed hyperlipidemia E78.2 [facility] [address] [place] [address] Aug, Other chronic pain G89.29 [facility] [address] [place] [address] Aug, Reactive airway disease, mild persistent , uncomplicated J45.[address] [address] Aug, [address] [address] Aug, Cough R05 and Allergic contact dermatiti s due to other agents L23.[address] [address] Aug, [address] [address] Jul, Other chronic pain G89.[address] [address] Jul, Upper respiratory tract infection, unspe cified type J06.9 ; Chronic GERD K21.9 ; Acute left ankle pain M25.572 and Lumbago of lumbar region with sciatica M54.[address] [address] Jun, Other chronic pain G89.[address] [address] Jun, [address] [address] Jun, [address] [address] Jun, Chronic GERD K21.[address] [address] Jun, [address] [address] May, Pain in right wrist M25.531 ; Left wrist pain M25.532 ; Acute left ankle pain M25.572 ; Thoracic spine pain M54.6 ; Lumbago with sciatica, left side M54.42 ; Other chronic pain G89.29 and Dysuria R30.[address] [address] May, Chronic GERD K21.9 [facility] [address] [place] [address] May, Chronic GERD K21.9 [facility] [address] [place] [address] May, [facility] [address] [place] [address] May, [facility] [address] [place] [address] May, [facility] [address] [place] [address] May, [facility] [address] [place] [address] May, Mixed hyperlipidemia E78.2 ; Fibromyalgi a M79.7 ; Depression with anxiety F41.8 ; Lumbago of lumbar region with sciatica M54.40 ; Encounter to establish care Z76.89 ; Chronic GERD K21.9 ; History of gestational diabetes Z86.32 ; Chronic idiopathic constipation K59.09 ; Thyroid disorder screen Z13.29 and Need for influenza vaccination Z23 [facility] [address] [place] [address] Apr, Gestational diabetes O24.419 [facility] [address] [place] [address] Feb, Gestational diabetes O24.419 IMMUNIZATIONS No Known Immunizations SOCIAL HISTORY Never Assessed REASON FOR VISIT Need new rx PLAN OF CARE VITAL SIGNS MEDICATIONS Medication Instructions Dosage Frequency Start Date End Date Duration S tatus Ventolin HFA 108 (90 Base) MCG/ACT Inhalation every 4 hrs 2 puffs a s needed 4h Aug, 30 days Active Mobic 15 MG Orally Once a day 1 tablet 24h Jul, 90 d ays Active Multivitamin Adult - Act nancy Gabapentin 600 MG Orally five times daily 1 tablet Active Zoloft 100 MG Orally Once a day 2 tablet 24h 30 days Active Pantoprazole Sodium 40 MG Orally BID 1 tablet 12h Jul, 30 days Active Colace 100 MG Orally Once a day 1 capsule as needed 24h 30 Active Nortriptyline HCl 25 MG Orally QHS 1 capsule 30 Active Cleocin-T 1 % Externally Apply a thin film to affected area twice daily 1 application to affected area Jun, Active Sertraline HCl 100 MG Orally Once a day 2 tablet 24h 30 days Active Quetiapine Fumarate 25 MG Orally Once a day 2 tablets at bedtime 24 h Aug, 30 day(s) Active Cyclobenzaprine HCl 10 MG TAKE 1 TABLET BY MOUTH THREE (3) T IMES DAILY 10 Active Pravastatin Sodium 20 MG TAKE 1 TABLET BY MOUTH EVERY NIGHT AT BEDTIME 90 Active Tramadol HCl 50 MG Orally Three times daily take 1 tablet b y mouth three times daily 30 Active RESULTS [...]
--- OUTSIDE RECORDS SUMMARY | 2020-03-15 21:23 | XMS REPORT ---
Author Author Solange Sultana [facility] Address [address], [place] [id number] Care Team Providers Care Mrb Engineer Name Role Phone Felisha Sultana Unavailable PROBLEMS Type Condition ICD9-CM Code [id number] Code Onset Dates Condition S tatus SNOMED Code Problem Prediabetes R73.03 Active 29945827 2 Problem Other fatigue R53.83 Active 690293 01 Problem Vitamin D deficiency E55.9 Active 03515586 Problem Generalized anxiety disorder F41.1 A ctive 81531380 Problem History of gestational diabetes Z86.32 Active 766567502 Problem Other elevated white blood cell (WBC) count D72.82 8 Active 528696745 Problem Gestational diabetes O24.419 Active 82260498 Problem Decreased hearing of left ear H91.92 Active 10172643 Problem Fibromyalgia M79.7 Active 9733896 05 Problem Absent periods N91.2 Active 86104 001 Problem Prediabetes R73.09 Active 59095836 2 Problem Mild persistent asthma without complication J45.30 Active 372833782 Problem Reactive airway disease, mild persistent, uncomplicated J45.30 Active 379700150675 Problem Vitamin B 12 deficiency E53.8 Active 438244732 Problem Plantar fasciitis M72.2 Active 20 2002096 Problem Irregular periods N92.6 Active 80 346137 Problem Post herpetic neuralgia B02.29 Active 1853507 Problem Irritable bowel syndrome with diarrhea K58.0 Active 428570839 Problem Cigarette nicotine dependence, uncomplicated F17.2 10 Active 54044100 Problem Excessive daytime sleepiness G47.19 A ctive 543995295839 Problem Thoracic spine pain M54.6 Active 422493587 Problem Rosacea L71.9 Active 531089980 Problem Acute left ankle pain M25.572 Active 13740699295043 Problem Primary insomnia F51.01 Active 397 2004 Problem Pain in right wrist M25.531 Active 86153471 Problem Menstrual cramps N94.6 Active 431 564034 Problem Lumbago with sciatica, left side M54.42 Active 028005538 Problem GERD with esophagitis K21.0 Active 880772333 Problem Left wrist pain M25.532 Active 5660 8008 Problem Constipation by delayed colonic transit K59.01 Active 59202521 Problem Other chronic pain G89.29 Active 8 6882476 Problem Abscess, axilla L02.419 Active 1380 2001 Problem Pain in pelvis R10.2 Active 28868 006 Problem Right hip pain M25.551 Active 81211 4916500614 Problem Spinal stenosis, lumbar region without neurogeni c claudication M48.061 Active 37544553 Problem Left hand pain M79.642 Active 46105 2032926527 Problem Mixed hyperlipidemia E78.2 Active 099881145 Problem Sleep apnea in adult G47.30 Active 20372782 Problem Cervical pain M54.2 Active 885131 05 Problem Depression with anxiety F41.8 Active 504774453 Problem Chronic idiopathic constipation K59.09 Active 92674594 Problem Elevated blood pressure reading R03.0 Active 67601912 Problem Chronic GERD K21.9 Active 6887602 09 Problem Neck pain M54.2 Active 32786438 Problem Left hip pain M25.552 Active 446928 02 Problem Lumbago of lumbar region with sciatica M54.40 Active 90338998 Problem Right anterior shoulder pain M25.511 A ctive 95203273 Problem Radiculopathy of lumbar region M54.16 Active 703832977 ALLERGIES No Information ENCOUNTERS Encounter Location Date Diagnosis [address] [address] Nov, [address] [address] Nov, [address] [address] Oct, Abscess, axilla L02.419 and Lumbago of l umbar region with sciatica M54.[address] [address] Oct, Fall, initial encounter W19.XXXA ; Right hip pain M25.551 ; Pain in pelvis R10.2 ; Right anterior shoulder pain M25.511 ; Left hip pain M25.552 ; Neck pain M54.2 ; Depression with anxiety F41.8 and Shingles B02.[address] [address] Oct, [address] [address] Oct, Sleep apnea in adult G47.[address] [address] Sep, Mixed hyperlipidemia E78.2 ; Prediabetes R73.09 ; Vitamin D deficiency E55.9 ; Fibromyalgia M79.7 ; Chronic GERD K21.9 ; Radiculopathy of lumbar region M54.16 ; Spinal stenosis, lumbar region without neurogenic claudication M48.061 ; Vitamin B 12 deficiency E53.8 ; Depression with anxiety F41.8 ; Cervical pain M54.2 and Hospital discharge follow-up Z09 [address] [address] Sep, [address] [address] Sep, [address] [address] Sep, Post herpetic neuralgia B02.[address] [address] Sep, Mixed hyperlipidemia E78.2 ; Vitamin D [...] congestion R09.81 and GERD with esophagitis K21.[address] [address] Aug, [facility] [address] [place] [address] Aug, Depression with anxiety F41.8 and Primar y insomnia F51.[address] [address] Aug, Chronic GERD K21.[address] [address] Aug, [address] [address] 15 Jul, 2018 Irregular periods N92.6 and Menstrual cr amps N94.[address] [address] Jul, [address] [address] Jul, [address] [address] Jul, Abscess L02.[address] [address] 06 Jul, 2018 Mixed hyperlipidemia E78.2 ; Chronic ABDOUL D K21.9 and Generalized anxiety disorder F41.[address] [address] 06 Jul, 2018 Well woman exam with routine gynecologic al exam Z01.419 ; Menstrual cramps N94.6 ; Acute left ankle pain M25.572 ; Snoring R06.83 and Excessive daytime sleepiness G47.[address] [address] Jun, Shingles B02.[address] [address] Jun, Pruritic dermatitis L29.9 and Rosacea L7 1.[address] [address] Jun, [address] [address] Jun, [address] [address] Jun, [facility] [address] [place] [address] Jun, Butterfly rash R21 ; Influenza vaccine n eeded Z23 ; Prediabetes R73.09 ; Mixed hyperlipidemia E78.2 and Vitamin D deficiency E55.9 [facility] [address] [place] [address] Apr, Left ankle swelling M25.472 [facility] [address] [place] [address] Apr, [facility] [address] [place] [address] Apr, [facility] [address] [place] [address] Mar, Edema of left foot R60.0 [facility] [address] [place] [address] Mar, Irritable bowel syndrome with diarrhea K 58.0 [facility] [address] [place] [address] Mar, [facility] [address] [place] [address] Mar, [facility] [address] [place] [address] Mar, [facility] [address] [place] [address] Feb, Irritable bowel syndrome with diarrhea K 58.0 [facility] [address] [place] [address] Feb, [facility] [address] [place] [address] Feb, Irritable bowel syndrome with diarrhea K 58.0 [facility] [address] [place] [address] Feb, control counseling Z30.09 ; Lumbag o with sciatica, left side M54.42 and Chronic GERD K21.9 [facility] [address] [place] [address] Feb, [facility] [address] [place] [address] Feb, [address] [address] Feb, [address] [address] Feb, Diarrhea, unspecified type R19.[address] [address] Feb, Abnormal glucose R73.[address] [address] Feb, Abnormal glucose R73.[address] [address] Feb, Reactive airway disease, mild persistent , uncomplicated J45.[address] [address] Feb, Lumbago with sciatica, left side M54.42 ; Cigarette nicotine dependence, uncomplicated F17.210 ; Diarrhea, unspecified type R19.7 and Abnormal glucose R73.[address] [address] January, [address] [address] January, [address] [address] January, [address] [address] January, [address] [address] January, Muscle strain of chest wall, initial enc ounter S29.011A ; Physical exam Z00.00 ; Need for hepatitis vaccination Z23 and Abscess L02.[address] [address] Dec, Left hand pain M79.642 ; Thoracic spine pain M54.6 ; Cervical pain M54.2 and Elevated blood pressure reading R03.0 [address] [place] [address] Dec, Lumbago with sciatica, left side M54.42 and Decreased hearing of left ear H91.[address] [address] Dec, Other chest pain R07.89 ; Finger pain, l eft M79.645 ; Chronic GERD K21.9 and Muscle strain of chest wall, initial encounter S29.011A [address] [address] Dec, [address] [address] Dec, Other constipation K59.09 ; Irregular pe riods N92.6 and Absent periods N91.[address] [address] Oct, [address] [address] Oct, Weight gain R63.[address] [address] Oct, Generalized anxiety disorder F41.[address] [address] Sep, [address] [address] Sep, Absent periods N91.2 and Decreased heari ng of left ear H91.[address] [address] Sep, [address] [address] Sep, Pre-op exam Z01.818 and Abscess of chest wall L02.[address] [address] Sep, [address] [address] Sep, Prediabetes R73.09 ; Vitamin D deficienc y E55.9 ; Mixed hyperlipidemia E78.2 and Arthritis of ankle, left M19.[address] [address] Sep, Smoking trying to quit Z72.0 ; Chronic G ERD K21.9 ; Generalized anxiety disorder F41.1 ; Other chest pain R07.89 ; Other constipation K59.09 and Right upper quadrant pain R10.[address] [address] Aug, [address] [address] Aug, Other chronic pain G89.[address] [address] Aug, Mixed hyperlipidemia E78.2 ; Fibromyalgi a M79.7 ; Lumbago of lumbar region with sciatica M54.40 ; History of gestational diabetes Z86.32 ; Prediabetes R73.09 ; Vitamin D deficiency E55.9 ; Weight gain R63.5 ; control counseling Z30.09 ; Pain, dental K08.89 and Flank pain R10.[address] [address] Aug, [address] [address] Jun, Acute left ankle pain M25.[address] [address] Jun, [address] [address] Jun, [address] [address] Jun, Acute left ankle pain M25.[address] [address] Jun, [address] [address] Jun, Acute left ankle pain M25.[address] [address] Jun, Influenza vaccine needed Z23 and Irregul ar periods N92.6 [facility] [address] [place] [address] May, Mixed hyperlipidemia E78.2 [facility] [address] [place] [address] May, [facility] [address] [place] [address] May, Chronic GERD K21.9 [facility] [address] [place] [address] Apr, Weight gain R63.[address] [address] Apr, Chronic GERD K21.9 and Weight gain R63.5 [facility] [address] [place] [address] Mar, Depression with anxiety F41.8 and Chroni c idiopathic constipation K59.09 [facility] [address] [place] [address] Mar, Other chronic pain G89.29 [facility] [address] [place] [address] Mar, Post herpetic neuralgia B02.29 [facility] [address] [place] [address] Mar, Post herpetic neuralgia B02.29 [facility] [address] [place] [address] Mar, [facility] [address] [place] [address] Mar, Other elevated white blood cell (WBC) co unt D72.[address] [address] Mar, Other elevated white blood cell (WBC) co unt D72.828 and Dyslipidemia E78.5 [facility] [address] [place] [address] Feb, [facility] [address] [place] [address] Feb, Vitamin D deficiency E55.9 ; Dyslipidemi a E78.5 ; Other elevated white blood cell (WBC) count D72.828 and Skin tag L91.[address] [address] Feb, [address] [address] Feb, Vitamin D deficiency E55.9 and Dyslipide sourav E78.[address] [address] Feb, [address] [address] Feb, Post herpetic neuralgia B02.29 ; Thyroid disorder screen Z13.29 ; Mixed hyperlipidemia E78.2 ; Chronic GERD K21.9 ; Lumbago of lumbar region with sciatica M54.40 ; Prediabetes R73.03 ; Other fatigue R53.83 ; Vitamin D deficiency E55.9 and Vitamin B 12 deficiency E53.[address] [address] Feb, Reactive airway disease, mild persistent , uncomplicated J45.[address] [address] Feb, Chronic GERD K21.[address] [address] Feb, Mixed hyperlipidemia E78.2 and Other chr onic pain G89.[address] [address] Feb, Lumbago with sciatica, left side M54.42 ; Mixed hyperlipidemia E78.2 and Reactive airway disease, mild persistent, uncomplicated J45.[address] [address] Feb, Chronic GERD K21.[address] [address] Feb, [address] [address] Feb, [facility] [address] [place] [address] Feb, Post herpetic neuralgia B02.29 [facility] [address] [place] [address] Feb, Allergic contact dermatitis due to other agents L23.89 and Post herpetic neuralgia B02.29 [facility] [address] [place] [address] Feb, Chronic GERD K21.9 [facility] [address] [place] [address] Feb, Chronic GERD K21.9 [facility] [address] [place] [address] January, Post herpetic neuralgia B02.29 [facility] [address] [place] [address] January, Lumbago with sciatica, left side M54.42 [facility] [address] [place] [address] January, [facility] [address] [place] [address] January, Lumbago of lumbar region with sciatica M 54.40 [facility] [address] [place] [address] January, Other chronic pain G89.29 and Lumbago wi th sciatica, left side M54.42 [facility] [address] [place] [address] January, Depression with anxiety F41.8 [facility] [address] [place] [address] January, Mixed hyperlipidemia E78.2 [facility] [address] [place] [address] January, Abscess of left groin L02.214 [facility] [address] [place] [address] Dec, Depression with anxiety F41.8 [facility] [address] [place] [address] Dec, Irregular periods N92.[address] [address] Nov, Left wrist pain M25.532 and Acute left a nkle pain M25.[address] [address] Nov, Post herpetic neuralgia B02.29 and Absce ss of left groin L02.[address] [address] Sep, Irregular periods N92.[address] [address] Sep, Mixed hyperlipidemia E78.2 ; Flank pain R10.9 and Post herpetic neuralgia B02.[address] [address] Aug, Lumbago of lumbar region with sciatica M 54.40 ; Chronic idiopathic constipation K59.09 ; Depression with anxiety F41.8 and Mixed hyperlipidemia E78.[address] [address] Aug, Other chronic pain G89.[address] [address] Aug, Reactive airway disease, mild persistent , uncomplicated J45.[address] [address] 07 Aug, [address] [address] Aug, Cough R05 and Allergic contact dermatiti s due to other agents L23.[address] [address] 05 Aug, [address] [address] Jul, Other chronic pain G89.[address] [address] Jul, Upper respiratory tract infection, unspe cified type J06.9 ; Chronic GERD K21.9 ; Acute left ankle pain M25.572 and Lumbago of lumbar region with sciatica M54.[address] [address] Jun, Other chronic pain G89.[address] [address] Jun, [address] [address] Jun, [address] [address] Jun, Chronic GERD K21.[address] [address] Jun, [address] [address] May, Pain in right wrist M25.531 ; Left wrist pain M25.532 ; Acute left ankle pain M25.572 ; Thoracic spine pain M54.6 ; Lumbago with sciatica, left side M54.42 ; Other chronic pain G89.29 and Dysuria R30.[address] [address] May, Chronic GERD K21.[address] [address] May, Chronic GERD K21.[address] [address] May, [address] [address] May, [address] [address] May, [address] [address] May, [address] [address] May, Mixed hyperlipidemia E78.2 ; Fibromyalgi a M79.7 ; Depression with anxiety F41.8 ; Lumbago of lumbar region with sciatica M54.40 ; Encounter to establish care Z76.89 ; Chronic GERD K21.9 ; History of gestational diabetes Z86.32 ; Chronic idiopathic constipation K59.09 ; Thyroid disorder screen Z13.29 and Need for influenza vaccination Z23 [facility] [address] [place] [phone] Apr, Gestational diabetes O24.419 [facility] [address] [place] [phone] Feb, Gestational diabetes O24.419 IMMUNIZATIONS No Known Immunizations SOCIAL HISTORY Never Assessed REASON FOR VISIT please call PLAN OF CARE VITAL SIGNS MEDICATIONS Unknown [...]
--- OUTSIDE RECORDS SUMMARY | 2020-03-15 21:23 | XMS REPORT ---
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 Name Role Phone Felisha Sultana Unavailable PROBLEMS Type Condition ICD9-CM Code [id number] Code Onset Dates Condition S tatus SNOMED Code Problem Prediabetes R73.09 Active 71910059 2 Problem Chronic GERD K21.9 Active 2758695 09 Problem Mixed hyperlipidemia E78.2 Active 199920816 Problem Fibromyalgia M79.7 Active 2558287 05 Problem Depression with anxiety F41.8 Active 814054376 Problem History of gestational diabetes Z86.32 Active 651158967 Problem Chronic idiopathic constipation K59.09 Active 79522831 Problem Lumbago of lumbar region with sciatica M54.40 Active 26783599 Problem Acute left ankle pain M25.572 Active 79688550269369 Problem Generalized anxiety disorder F41.1 A ctive 52739666 Problem Thoracic spine pain M54.6 Active 708869502 Problem Absent periods N91.2 Active 42694 001 Problem Left wrist pain M25.532 Active 5660 8008 Problem Decreased hearing of left ear H91.92 Active 16561530 Problem Elevated blood pressure reading R03.0 Active 10102032 Problem Left hand pain M79.642 Active 97564 5001164635 Problem Excessive daytime sleepiness G47.19 A ctive 910801195839 Problem Menstrual cramps N94.6 Active 431 990950 Problem Pain in right wrist M25.531 Active 29364576 Problem Lumbago with sciatica, left side M54.42 Active 354582458 Problem Other chronic pain G89.29 Active 8 6386640 Problem Cigarette nicotine dependence, uncomplicated F17.2 10 Active 03006592 Problem Cervical pain M54.2 Active 874216 05 Problem Rosacea L71.9 Active 665339645 Problem Irritable bowel syndrome with diarrhea K58.0 Active 735721914 Problem Post herpetic neuralgia B02.29 Active 1239579 Problem Gestational diabetes O24.419 Active 10877121 Problem Irregular periods N92.6 Active 80 493435 Problem Plantar fasciitis M72.2 Active 20 4374546 Problem Reactive airway disease, mild persistent, uncomplicated J45.30 Active 796603565583 Problem Prediabetes R73.03 Active 98673507 2 Problem Other elevated white blood cell (WBC) count D72.82 8 Active 098745304 Problem Other fatigue R53.83 Active 253849 01 Problem Vitamin D deficiency E55.9 Active 74265249 ALLERGIES No Information ENCOUNTERS Encounter Location Date Diagnosis [address] [address] Aug, [address] [address] Aug, Chronic GERD K21.[address] [address] Aug, [address] [address] 15 Jul, 2018 Irregular periods N92.6 and Menstrual cr amps N94.[address] [address] Jul, [address] [address] Jul, [address] [address] 12 Jul, 2018 Abscess [address] [address] 06 Jul, 2018 Mixed hyperlipidemia E78.2 ; Chronic ABDOUL D K21.9 and Generalized anxiety disorder F41.[address] [address] 06 Jul, 2018 Well woman exam with routine gynecologic al exam Z01.419 ; Menstrual cramps N94.6 ; Acute left ankle pain M25.572 ; Snoring R06.83 and Excessive daytime sleepiness G47.[address] [address] Jun, Shingles B02.9 [facility] [address] [place] [address] Jun, Pruritic dermatitis L29.9 and Rosacea L7 1.9 [facility] [address] [place] [address] Jun, [facility] [address] [place] [address] Jun, [facility] [address] [place] [address] Jun, [facility] [address] [place] [address] Jun, Butterfly rash R21 ; Influenza vaccine n eeded Z23 ; Prediabetes R73.09 ; Mixed hyperlipidemia E78.2 and Vitamin D deficiency E55.9 [facility] [address] [place] [address] Apr, Left ankle swelling M25.472 [facility] [address] [place] [address] Apr, [facility] [address] [place] [address] Apr, [facility] [address] [place] [address] Mar, Edema of left foot R60.0 [facility] [address] [place] [address] Mar, Irritable bowel syndrome with diarrhea K 58.0 [facility] [address] [place] [address] Mar, [facility] [address] [place] [address] Mar, [facility] [address] [place] [address] Mar, [facility] [address] [place] [address] Feb, Irritable bowel syndrome with diarrhea K 58.0 [facility] [address] [place] [address] Feb, [facility] [address] [place] [address] Feb, Irritable bowel syndrome with diarrhea K 58.[address] [facility] [address] [place] [address] Feb, control counseling Z30.09 ; Lumbag o with sciatica, left side M54.42 and Chronic GERD K21.9 [facility] [address] [place] [address] Feb, [facility] [address] [place] [address] Feb, [facility] [address] [place] [address] Feb, [facility] [address] [place] [address] Feb, Diarrhea, unspecified type R19.7 [facility] [address] [place] [address] Feb, Abnormal glucose R73.09 [facility] [address] [place] [address] Feb, Abnormal glucose R73.09 [facility] [address] [place] [address] Feb, Reactive airway disease, mild persistent , uncomplicated J45.30 [facility] [address] [place] [address] 04 Feb, 2018 Lumbago with sciatica, left side M54.42 ; Cigarette nicotine dependence, uncomplicated F17.210 ; Diarrhea, unspecified type R19.7 and Abnormal glucose R73.09 [facility] [address] [place] [address] January, [facility] [address] [place] [address] January, [facility] [address] [place] [address] January, [facility] [address] [place] [address] January, [facility] [address] [place] [address] January, Muscle strain of chest wall, initial enc ounter S29.011A ; Physical exam Z00.00 ; Need for hepatitis vaccination Z23 and Abscess L02.[address] [address] Dec, Left hand pain M79.642 ; Thoracic spine pain M54.6 ; Cervical pain M54.2 and Elevated blood pressure reading R03.[address] [address] Dec, Lumbago with sciatica, left side M54.42 and Decreased hearing of left ear H91.[address] [address] Dec, Other chest pain R07.89 ; Finger pain, l eft M79.645 ; Chronic GERD K21.9 and Muscle strain of chest wall, initial encounter S29.011A [address] [address] Dec, [address] [address] Dec, Other constipation K59.09 ; Irregular pe riods N92.6 and Absent periods N91.[address] [address] Oct, [address] [address] Oct, Weight gain R63.[address] [address] Oct, Generalized anxiety disorder F41.[address] [address] Sep, [address] [address] Sep, Absent periods N91.2 and Decreased heari ng of left ear H91.[address] [address] Sep, [address] [address] Sep, Pre-op exam Z01.818 and Abscess of chest wall L02.[address] [address] Sep, [address] [address] Sep, Prediabetes R73.09 ; Vitamin D deficienc y E55.9 ; Mixed hyperlipidemia E78.2 and Arthritis of ankle, left M19.[address] [address] Sep, Smoking trying to quit Z72.0 ; Chronic G ERD K21.9 ; Generalized anxiety disorder F41.1 ; Other chest pain R07.89 ; Other constipation K59.09 and Right upper quadrant pain R10.[address] [address] Aug, [address] [address] Aug, Other chronic pain G89.[address] [address] 14 Aug, 2017 Mixed hyperlipidemia E78.2 ; Fibromyalgi a M79.7 ; Lumbago of lumbar region with sciatica M54.40 ; History of gestational diabetes Z86.32 ; Prediabetes R73.09 ; Vitamin D deficiency E55.9 ; Weight gain R63.5 ; control counseling Z30.09 ; Pain, dental K08.89 and Flank pain R10.[address] [address] Aug, [address] [address] Jun, Acute left ankle pain M25.[address] [address] Jun, [address] [address] Jun, [facility] [address] [place] [address] Jun, Acute left ankle pain M25.572 [facility] [address] [place] [address] Jun, [facility] [address] [place] [address] Jun, Acute left ankle pain M25.[address] [facility] [address] [place] [address] Jun, Influenza vaccine needed Z23 and Irregul ar periods N92.6 [facility] [address] [place] [address] May, Mixed hyperlipidemia E78.2 [facility] [address] [place] [address] May, [facility] [address] [place] [address] May, Chronic GERD K21.9 [facility] [address] [place] [address] Apr, Weight gain R63.5 [facility] [address] [place] [address] Apr, Chronic GERD K21.9 and Weight gain R63.5 [facility] [address] [place] [address] Mar, Depression with anxiety F41.8 and Chroni c idiopathic constipation K59.09 [facility] [address] [place] [address] Mar, Other chronic pain G89.29 [facility] [address] [place] [address] Mar, Post herpetic neuralgia B02.29 [facility] [address] [place] [address] Mar, Post herpetic neuralgia B02.29 [facility] [address] [place] [address] Mar, [facility] [address] [place] [address] Mar, Other elevated white blood cell (WBC) co unt D72.[address] [address] Mar, Other elevated white blood cell (WBC) co unt D72.828 and Dyslipidemia E78.[address] [address] Feb, [address] [address] Feb, Vitamin D deficiency E55.9 ; Dyslipidemi a E78.5 ; Other elevated white blood cell (WBC) count D72.828 and Skin tag L91.[address] [address] Feb, [address] [address] Feb, Vitamin D deficiency E55.9 and Dyslipide sourav E78.[address] [address] Feb, [address] [address] Feb, Post herpetic neuralgia B02.29 ; Thyroid disorder screen Z13.29 ; Mixed hyperlipidemia E78.2 ; Chronic GERD K21.9 ; Lumbago of lumbar region with sciatica M54.40 ; Prediabetes R73.03 ; Other fatigue R53.83 ; Vitamin D deficiency E55.9 and Vitamin B 12 deficiency E53.[address] [address] Feb, Reactive airway disease, mild persistent , uncomplicated J45.[address] [address] Feb, Chronic GERD K21.[address] [address] Feb, Mixed hyperlipidemia E78.2 and Other chr onic pain G89.[address] [address] Feb, Lumbago with sciatica, left side M54.42 ; Mixed hyperlipidemia E78.2 and Reactive airway disease, mild persistent, uncomplicated J45.30 [facility] [address] [place] [address] Feb, Chronic GERD K21.9 [facility] [address] [place] [address] Feb, [facility] [address] [place] [address] Feb, [facility] [address] [place] [address] Feb, Post herpetic neuralgia B02.29 [facility] [address] [place] [address] Feb, Allergic contact dermatitis due to other agents L23.89 and Post herpetic neuralgia B02.29 [facility] [address] [place] [address] Feb, Chronic GERD K21.9 [facility] [address] [place] [address] Feb, Chronic GERD K21.9 [facility] [address] [place] [address] January, Post herpetic neuralgia B02.29 [facility] [address] [place] [address] January, Lumbago with sciatica, left side M54.42 [facility] [address] [place] [address] January, [facility] [address] [place] [address] January, Lumbago of lumbar region with sciatica M 54.40 [facility] [address] [place] [address] January, Other chronic pain G89.29 and Lumbago wi th sciatica, left side M54.42 [facility] [address] [place] [address] January, Depression with anxiety F41.8 [facility] [address] [place] [address] January, Mixed hyperlipidemia E78.[address] [address] January, Abscess of left groin L02.[address] [address] Dec, Depression with anxiety F41.[address] [address] Dec, Irregular periods N92.[address] [address] Nov, Left wrist pain M25.532 and Acute left a nkle pain M25.[address] [address] Nov, Post herpetic neuralgia B02.29 and Absce ss of left groin L02.[address] [address] Sep, Irregular periods N92.[address] [address] Sep, Mixed hyperlipidemia E78.2 ; Flank pain R10.9 and Post herpetic neuralgia B02.[address] [address] Aug, Lumbago of lumbar region with sciatica M 54.40 ; Chronic idiopathic constipation K59.09 ; Depression with anxiety F41.8 and Mixed hyperlipidemia E78.[address] [address] Aug, Other chronic pain G89.[address] [address] Aug, Reactive airway disease, mild persistent , uncomplicated J45.[address] [address] Aug, [address] [address] Aug, Cough R05 and Allergic contact dermatiti s due to other agents L23.[address] [address] Aug, [address] [address] Jul, Other chronic pain G89.[address] [address] Jul, Upper respiratory tract infection, unspe cified type J06.9 ; Chronic GERD K21.9 ; Acute left ankle pain M25.572 and Lumbago of lumbar region with sciatica M54.[address] [address] Jun, Other chronic pain G89.[address] [address] Jun, [address] [address] Jun, [address] [address] Jun, Chronic GERD K21.[address] [address] Jun, [address] [address] May, Pain in right wrist M25.531 ; Left wrist pain M25.532 ; Acute left ankle pain M25.572 ; Thoracic spine pain M54.6 ; Lumbago with sciatica, left side M54.42 ; Other chronic pain G89.29 and Dysuria R30.[address] [address] May, Chronic GERD K21.[address] [address] May, Chronic GERD K21.[address] [address] May, [address] [place] [address] 19 May, 2016 [facility] [address] [place] [address] 16 May, 2016 [facility] [address] [place] [address] 16 May, 2016 [facility] [address] [place] [address] 16 May, 2016 Mixed hyperlipidemia E78.2 ; Fibromyalgi a M79.7 ; Depression with anxiety F41.8 ; Lumbago of lumbar region with sciatica M54.40 ; Encounter to establish care Z76.89 ; Chronic GERD K21.9 ; History of gestational diabetes Z86.32 ; Chronic idiopathic constipation K59.09 ; Thyroid disorder screen Z13.29 and Need for influenza vaccination Z23 [facility] [address] [place] [address] Apr, Gestational diabetes O24.419 [facility] [address] [place] [address] Feb, Gestational diabetes O24.419 IMMUNIZATIONS No Known Immunizations SOCIAL HISTORY Never Assessed REASON FOR VISIT discuss meds PLAN OF CARE VITAL SIGNS MEDICATIONS Medication Instructions Dosage Frequency Start Date End Date Duration S tatus Tramadol HCl 50 MG Orally Three times daily take 1 tablet b y mouth three times daily 30 Active Pantoprazole Sodium 40 MG Orally BID 1 tablet 12h 09 Jul, 2016 30 days Active RESULTS No Results PROCEDURES [...]
--- OUTSIDE RECORDS SUMMARY | 2020-03-15 21:23 | XMS REPORT ---
Author Author Solange Sultana [facility] Address [address], [place] [id number] Care Team Providers Care Angular Developer Name Role Phone Felisha Sultana Unavailable PROBLEMS Type Condition ICD9-CM Code UWE59-BV Code Onset Dates Condition S tatus SNOMED Code Problem Fibromyalgia M79.7 Active 0749683 05 Problem Prediabetes R73.09 Active 11480733 2 Problem Depression with anxiety F41.8 Active 939604007 Problem Mixed hyperlipidemia E78.2 Active 499702917 Problem Lumbago of lumbar region with sciatica M54.40 Active 78197464 Problem Chronic idiopathic constipation K59.09 Active 93025953 Problem Chronic GERD K21.9 Active 2948640 09 Problem Lumbago with sciatica, left side M54.42 Active 898263992 Problem Pain in right wrist M25.531 Active 32579380 Problem Absent periods N91.2 Active 19331 001 Problem Thoracic spine pain M54.6 Active 538041802 Problem Decreased hearing of left ear H91.92 Active 51184258 Problem Acute left ankle pain M25.572 Active 11961359530778 Problem Left hand pain M79.642 Active 09554 1352891210 Problem Elevated blood pressure reading R03.0 Active 24904393 Problem Cervical pain M54.2 Active 571762 05 Problem Primary insomnia F51.01 Active 397 2004 Problem Menstrual cramps N94.6 Active 431 496421 Problem Plantar fasciitis M72.2 Active 20 5713214 Problem Left wrist pain M25.532 Active 5660 8008 Problem Other chronic pain G89.29 Active 8 5757389 Problem Irritable bowel syndrome with diarrhea K58.0 Active 936240713 Problem Cigarette nicotine dependence, uncomplicated F17.2 10 Active 02680823 Problem Excessive daytime sleepiness G47.19 A ctive 246051529725 Problem Rosacea L71.9 Active 270802692 Problem Gestational diabetes O24.419 Active 74569179 Problem Irregular periods N92.6 Active 80 429490 Problem History of gestational diabetes Z86.32 Active 260547564 Problem Other fatigue R53.83 Active 894796 01 Problem Reactive airway disease, mild persistent, uncomplicated J45.30 Active 323242839128 Problem Post herpetic neuralgia B02.29 Active 0602678 Problem Other elevated white blood cell (WBC) count D72.82 8 Active 480347688 Problem Generalized anxiety disorder F41.1 A ctive 93340051 Problem Vitamin D deficiency E55.9 Active 16993296 Problem Prediabetes R73.03 Active 50940677 2 ALLERGIES No Information ENCOUNTERS Encounter Location Date Diagnosis [address] [address] Aug, [address] [address] Aug, [address] [address] Aug, Depression with anxiety F41.8 and Primar y insomnia F51.[address] [address] Aug, Chronic GERD K21.[address] [address] Aug, [address] [address] 15 Jul, 2018 Irregular periods N92.6 and Menstrual cr amps N94.[address] [address] Jul, [address] [address] Jul, [address] [address] Jul, Abscess L02.[address] [address] Jul, Mixed hyperlipidemia E78.2 ; Chronic ABDOUL D K21.9 and Generalized anxiety disorder F41.[address] [address] Jul, Well woman exam with routine gynecologic al exam Z01.419 ; Menstrual cramps N94.6 ; Acute left ankle pain M25.572 ; Snoring R06.83 and Excessive daytime sleepiness G47.19 [facility] [address] [place] [address] Jun, Shingles B02.[address] [address] Jun, Pruritic dermatitis L29.9 and Rosacea L7 1.9 [facility] [address] [place] [address] Jun, [address] [address] Jun, [facility] [address] [place] [address] Jun, [address] [address] Jun, Butterfly rash R21 ; Influenza vaccine n eeded Z23 ; Prediabetes R73.09 ; Mixed hyperlipidemia E78.2 and Vitamin D deficiency E55.[address] [address] Apr, Left ankle swelling M25.[address] [address] Apr, [address] [address] Apr, [address] [address] Mar, Edema of left foot R60.[address] [address] Mar, Irritable bowel syndrome with diarrhea K 58.[address] [address] Mar, [address] [address] Mar, [address] [address] Mar, [facility] [address] [place] [address] Feb, Irritable bowel syndrome with diarrhea K 58.0 [facility] [address] [place] [address] Feb, [facility] [address] [place] [address] Feb, Irritable bowel syndrome with diarrhea K 58.0 [facility] [address] [place] [address] Feb, control counseling Z30.09 ; Lumbag o with sciatica, left side M54.42 and Chronic GERD K21.9 [facility] [address] [place] [address] Feb, [facility] [address] [place] [address] Feb, [facility] [address] [place] [address] Feb, [facility] [address] [place] [address] 08 Feb, 2018 Diarrhea, unspecified type R19.7 [facility] [address] [place] [address] Feb, Abnormal glucose R73.09 [facility] [address] [place] [address] Feb, Abnormal glucose R73.09 [facility] [address] [place] [address] 05 Feb, 2018 Reactive airway disease, mild persistent , uncomplicated J45.30 [facility] [address] [place] [address] 04 Feb, 2018 Lumbago with sciatica, left side M54.42 ; Cigarette nicotine dependence, uncomplicated F17.210 ; Diarrhea, unspecified type R19.7 and Abnormal glucose R73.09 [facility] [address] [place] [address] January, [facility] [address] [place] [address] January, [facility] [address] [place] [address] January, [address] [address] January, [address] [address] January, Muscle strain of chest wall, initial enc ounter S29.011A ; Physical exam Z00.00 ; Need for hepatitis vaccination Z23 and Abscess L02.[address] [address] Dec, Left hand pain M79.642 ; Thoracic spine pain M54.6 ; Cervical pain M54.2 and Elevated blood pressure reading R03.[address] [address] Dec, Lumbago with sciatica, left side M54.42 and Decreased hearing of left ear H91.[address] [address] Dec, Other chest pain R07.89 ; Finger pain, l eft M79.645 ; Chronic GERD K21.9 and Muscle strain of chest wall, initial encounter S29.011A [address] [address] Dec, [address] [address] Dec, Other constipation K59.09 ; Irregular pe riods N92.6 and Absent periods N91.[address] [address] Oct, [address] [address] Oct, Weight gain R63.[address] [address] Oct, Generalized anxiety disorder F41.[address] [address] Sep, [address] [address] Sep, Absent periods N91.2 and Decreased heari ng of left ear H91.[address] [address] Sep, [address] [address] Sep, Pre-op exam Z01.818 and Abscess of chest wall L02.[address] [address] Sep, [address] [address] Sep, Prediabetes R73.09 ; Vitamin D deficienc y E55.9 ; Mixed hyperlipidemia E78.2 and Arthritis of ankle, left M19.[address] [address] Sep, Smoking trying to quit Z72.0 ; Chronic G ERD K21.9 ; Generalized anxiety disorder F41.1 ; Other chest pain R07.89 ; Other constipation K59.09 and Right upper quadrant pain R10.[address] [address] Aug, [address] [address] Aug, Other chronic pain G89.[address] [address] Aug, Mixed hyperlipidemia E78.2 ; Fibromyalgi a M79.7 ; Lumbago of lumbar region with sciatica M54.40 ; History of gestational diabetes Z86.32 ; Prediabetes R73.09 ; Vitamin D deficiency E55.9 ; Weight gain R63.5 ; control counseling Z30.09 ; Pain, dental K08.89 and Flank pain R10.[address] [address] Aug, [address] [address] Jun, Acute left ankle pain M25.572 [facility] [address] [place] [address] Jun, [facility] [address] [place] [address] Jun, [facility] [address] [place] [address] Jun, Acute left ankle pain M25.572 [facility] [address] [place] [address] Jun, [facility] [address] [place] [address] Jun, Acute left ankle pain M25.572 [facility] [address] [place] [address] Jun, Influenza vaccine needed Z23 and Irregul ar periods N92.6 [facility] [address] [place] [address] May, Mixed hyperlipidemia E78.2 [facility] [address] [place] [address] May, [facility] [address] [place] [address] May, Chronic GERD K21.9 [facility] [address] [place] [address] Apr, Weight gain R63.5 [facility] [address] [place] [address] Apr, Chronic GERD K21.9 and Weight gain R63.5 [facility] [address] [place] [address] Mar, Depression with anxiety F41.8 and Chroni c idiopathic constipation K59.09 [facility] [address] [place] [address] Mar, Other chronic pain G89.29 [facility] [address] [place] [address] Mar, Post herpetic neuralgia B02.[address] [address] Mar, Post herpetic neuralgia B02.[address] [address] Mar, [address] [address] Mar, Other elevated white blood cell (WBC) co unt D72.[address] [address] Mar, Other elevated white blood cell (WBC) co unt D72.828 and Dyslipidemia E78.[address] [address] Feb, [address] [address] Feb, Vitamin D deficiency E55.9 ; Dyslipidemi a E78.5 ; Other elevated white blood cell (WBC) count D72.828 and Skin tag L91.[address] [address] Feb, [address] [address] Feb, Vitamin D deficiency E55.9 and Dyslipide sourav E78.[address] [address] Feb, [address] [address] Feb, Post herpetic neuralgia B02.29 ; Thyroid disorder screen Z13.29 ; Mixed hyperlipidemia E78.2 ; Chronic GERD K21.9 ; Lumbago of lumbar region with sciatica M54.40 ; Prediabetes R73.03 ; Other fatigue R53.83 ; Vitamin D deficiency E55.9 and Vitamin B 12 deficiency E53.[address] [address] Feb, Reactive airway disease, mild persistent , uncomplicated J45.[address] [address] Feb, Chronic GERD K21.9 [facility] [address] [place] [address] Feb, Mixed hyperlipidemia E78.2 and Other chr onic pain G89.29 [facility] [address] [place] [address] Feb, Lumbago with sciatica, left side M54.42 ; Mixed hyperlipidemia E78.2 and Reactive airway disease, mild persistent, uncomplicated J45.30 [facility] [address] [place] [address] 20 Feb, 2017 Chronic GERD K21.9 [facility] [address] [place] [address] Feb, [facility] [address] [place] [address] Feb, [facility] [address] [place] [address] Feb, Post herpetic neuralgia B02.29 [facility] [address] [place] [address] Feb, Allergic contact dermatitis due to other agents L23.89 and Post herpetic neuralgia B02.29 [facility] [address] [place] [address] Feb, Chronic GERD K21.9 [facility] [address] [place] [address] Feb, Chronic GERD K21.9 [facility] [address] [place] [address] January, Post herpetic neuralgia B02.29 [facility] [address] [place] [address] January, Lumbago with sciatica, left side M54.42 [facility] [address] [place] [address] January, [facility] [address] [place] [address] January, Lumbago of lumbar region with sciatica M 54.40 [facility] [address] [place] [address] January, Other chronic pain G89.29 and Lumbago wi th sciatica, left side M54.42 [facility] [address] [place] [address] January, Depression with anxiety F41.8 [facility] [address] [place] [address] January, Mixed hyperlipidemia E78.2 [facility] [address] [place] [address] January, Abscess of left groin L02.[address] [address] Dec, Depression with anxiety F41.8 [facility] [address] [place] [address] Dec, Irregular periods N92.6 [facility] [address] [place] [address] Nov, Left wrist pain M25.532 and Acute left a nkle pain M25.572 [facility] [address] [place] [address] Nov, Post herpetic neuralgia B02.29 and Absce ss of left groin L02.214 [facility] [address] [place] [address] Sep, Irregular periods N92.6 [facility] [address] [place] [address] Sep, Mixed hyperlipidemia E78.2 ; Flank pain R10.9 and Post herpetic neuralgia B02.29 [facility] [address] [place] [address] Aug, Lumbago of lumbar region with sciatica M 54.40 ; Chronic idiopathic constipation K59.09 ; Depression with anxiety F41.8 and Mixed hyperlipidemia E78.2 [facility] [address] [place] [address] Aug, Other chronic pain G89.29 [facility] [address] [place] [address] Aug, Reactive airway disease, mild persistent , uncomplicated J45.[address] [address] Aug, [address] [address] Aug, Cough R05 and Allergic contact dermatiti s due to other agents L23.[address] [address] Aug, [address] [address] Jul, Other chronic pain G89.[address] [address] Jul, Upper respiratory tract infection, unspe cified type J06.9 ; Chronic GERD K21.9 ; Acute left ankle pain M25.572 and Lumbago of lumbar region with sciatica M54.[address] [address] Jun, Other chronic pain G89.[address] [address] Jun, [address] [address] Jun, [address] [address] Jun, Chronic GERD K21.[address] [address] Jun, [address] [address] May, Pain in right wrist M25.531 ; Left wrist pain M25.532 ; Acute left ankle pain M25.572 ; Thoracic spine pain M54.6 ; Lumbago with sciatica, left side M54.42 ; Other chronic pain G89.29 and Dysuria R30.[address] [address] 29 May, 2016 Chronic GERD K21.9 [facility] [address] [place] [address] May, Chronic GERD K21.9 [facility] [address] [place] [address] May, [facility] [address] [place] [address] 19 May, 2016 [facility] [address] [place] [address] 16 May, 2016 [facility] [address] [place] [address] 16 May, 2016 [facility] [address] [place] [address] 16 May, 2016 Mixed hyperlipidemia E78.2 ; Fibromyalgi a M79.7 ; Depression with anxiety F41.8 ; Lumbago of lumbar region with sciatica M54.40 ; Encounter to establish care Z76.89 ; Chronic GERD K21.9 ; History of gestational diabetes Z86.32 ; Chronic idiopathic constipation K59.09 ; Thyroid disorder screen Z13.29 and Need for influenza vaccination Z23 [facility] [address] [place] [address] Apr, Gestational diabetes O24.419 [facility] [address] [place] [phone] Feb, Gestational diabetes O24.419 IMMUNIZATIONS No Known Immunizations SOCIAL HISTORY Never Assessed REASON FOR VISIT missed your call PLAN OF CARE VITAL SIGNS MEDICATIONS [...] History Fused L ankle 09/2017 Hospitalization History [facility]- Hyperglycemia and February 2016 Hospitalization History Ankle surgery 09/2017
--- OUTSIDE RECORDS SUMMARY | 2020-03-15 21:23 | XMS REPORT ---
Author Author Solange Sultana [facility] Address [address], [place] [id number] Care Team Providers Care Basket Mender Name Role Phone Felisha Sultana Unavailable PROBLEMS Type Condition ICD9-CM Code PSY40-AA Code Onset Dates Condition S tatus SNOMED Code Problem Prediabetes R73.09 Active 11150545 2 Problem Chronic GERD K21.9 Active 2901457 09 Problem Mixed hyperlipidemia E78.2 Active 851332461 Problem Fibromyalgia M79.7 Active 7676485 05 Problem Depression with anxiety F41.8 Active 372173918 Problem History of gestational diabetes Z86.32 Active 311631219 Problem Chronic idiopathic constipation K59.09 Active 40100030 Problem Lumbago of lumbar region with sciatica M54.40 Active 17831099 Problem Acute left ankle pain M25.572 Active 52604075404304 Problem Generalized anxiety disorder F41.1 A ctive 29359483 Problem Thoracic spine pain M54.6 Active 843138087 Problem Absent periods N91.2 Active 86547 001 Problem Left wrist pain M25.532 Active 5660 8008 Problem Decreased hearing of left ear H91.92 Active 65633017 Problem Elevated blood pressure reading R03.0 Active 04594037 Problem Left hand pain M79.642 Active 26915 6572319180 Problem Excessive daytime sleepiness G47.19 A ctive 898886448173 Problem Menstrual cramps N94.6 Active 431 091950 Problem Pain in right wrist M25.531 Active 37984615 Problem Lumbago with sciatica, left side M54.42 Active 921606125 Problem Other chronic pain G89.29 Active 8 3918800 Problem Cigarette nicotine dependence, uncomplicated F17.2 10 Active 41994330 Problem Cervical pain M54.2 Active 723330 05 Problem Rosacea L71.9 Active 884647022 Problem Irritable bowel syndrome with diarrhea K58.0 Active 697090074 Problem Post herpetic neuralgia B02.29 Active 2597209 Problem Gestational diabetes O24.419 Active 34556387 Problem Irregular periods N92.6 Active 80 203022 Problem Plantar fasciitis M72.2 Active 20 4276934 Problem Reactive airway disease, mild persistent, uncomplicated J45.30 Active 483141436637 Problem Prediabetes R73.03 Active 97679434 2 Problem Other elevated white blood cell (WBC) count D72.82 8 Active 360132828 Problem Other fatigue R53.83 Active 301415 01 Problem Vitamin D deficiency E55.9 Active 98721670 ALLERGIES No Information ENCOUNTERS Encounter Location Date Diagnosis [address] [address] Aug, [address] [address] Aug, [address] [address] Aug, [address] [address] 15 Jul, 2018 Irregular periods N92.6 and Menstrual cr amps N94.[address] [address] Jul, [address] [address] Jul, [address] [address] 12 Jul, 2018 Abscess L02.[address] [address] 06 Jul, 2018 Mixed hyperlipidemia E78.2 ; Chronic ABDOUL D K21.9 and Generalized anxiety disorder F41.[address] [address] Jul, Well woman exam with routine gynecologic al exam Z01.419 ; Menstrual cramps N94.6 ; Acute left ankle pain M25.572 ; Snoring R06.83 and Excessive daytime sleepiness G47.[address] [address] Jun, Shingles B02.[address] [place] [address] Jun, Pruritic dermatitis L29.[address] [facility] [address] [place] [address] Jun, [facility] [address] [place] [address] Jun, [facility] [address] [place] [address] Jun, [facility] [address] [place] [address] Jun, Butterfly rash R21 ; Influenza vaccine n eeded Z23 ; Prediabetes R73.09 ; Mixed hyperlipidemia E78.2 and Vitamin D deficiency E55.9 [facility] [address] [place] [address] Apr, Left ankle swelling M25.472 [facility] [address] [place] [address] Apr, [facility] [address] [place] [address] Apr, [facility] [address] [place] [address] Mar, Edema of left foot R60.0 [facility] [address] [place] [address] Mar, Irritable bowel syndrome with diarrhea K 58.0 [facility] [address] [place] [address] Mar, [facility] [address] [place] [address] Mar, [facility] [address] [place] [address] Mar, [facility] [address] [place] [address] Feb, Irritable bowel syndrome with diarrhea K 58.0 [facility] [address] [place] [address] Feb, [facility] [address] [place] [address] Feb, Irritable bowel syndrome with diarrhea K 58.0 [facility] [address] [place] [address] Feb, control counseling Z30.09 ; Lumbag o with sciatica, left side M54.42 and Chronic GERD K21.9 [facility] [address] [place] [address] Feb, [facility] [address] [place] [address] Feb, [facility] [address] [place] [address] Feb, [facility] [address] [place] [address] Feb, Diarrhea, unspecified type R19.7 [facility] [address] [place] [address] Feb, Abnormal glucose R73.09 [facility] [address] [place] [address] Feb, Abnormal glucose R73.09 [facility] [address] [place] [address] Feb, Reactive airway disease, mild persistent , uncomplicated J45.30 [facility] [address] [place] [address] Feb, Lumbago with sciatica, left side M54.42 ; Cigarette nicotine dependence, uncomplicated F17.210 ; Diarrhea, unspecified type R19.7 and Abnormal glucose R73.09 [facility] [address] [place] [address] January, [facility] [address] [place] [address] January, [facility] [address] [place] [address] January, [facility] [address] [place] [address] January, [facility] [address] [place] [address] January, Muscle strain of chest wall, initial enc ounter S29.011A ; Physical exam Z00.00 ; Need for hepatitis vaccination Z23 and Abscess L02.[address] [address] Dec, Left hand pain M79.642 ; Thoracic spine pain M54.6 ; Cervical pain M54.2 and Elevated blood pressure reading R03.[address] [address] Dec, Lumbago with sciatica, left side M54.42 and Decreased hearing of left ear H91.[address] [address] Dec, Other chest pain R07.89 ; Finger pain, l eft M79.645 ; Chronic GERD K21.9 and Muscle strain of chest wall, initial encounter S29.011A [address] [address] Dec, [address] [address] Dec, Other constipation K59.09 ; Irregular pe riods N92.6 and Absent periods N91.[address] [address] Oct, [address] [address] Oct, Weight gain R63.[address] [address] Oct, Generalized anxiety disorder F41.[address] [address] Sep, [address] [address] Sep, Absent periods N91.2 and Decreased heari ng of left ear H91.[address] [address] Sep, [address] [place] [address] Sep, Pre-op exam Z01.818 and Abscess of chest wall L02.[address] [address] Sep, [address] [address] Sep, Prediabetes R73.09 ; Vitamin D deficienc y E55.9 ; Mixed hyperlipidemia E78.2 and Arthritis of ankle, left M19.[address] [address] Sep, Smoking trying to quit Z72.0 ; Chronic G ERD K21.9 ; Generalized anxiety disorder F41.1 ; Other chest pain R07.89 ; Other constipation K59.09 and Right upper quadrant pain R10.[address] [address] Aug, [address] [address] Aug, Other chronic pain G89.[address] [address] Aug, Mixed hyperlipidemia E78.2 ; Fibromyalgi a M79.7 ; Lumbago of lumbar region with sciatica M54.40 ; History of gestational diabetes Z86.32 ; Prediabetes R73.09 ; Vitamin D deficiency E55.9 ; Weight gain R63.5 ; control counseling Z30.09 ; Pain, dental K08.89 and Flank pain R10.[address] [address] Aug, [address] [address] Jun, Acute left ankle pain M25.[address] [address] Jun, [address] [address] Jun, [address] [place] [address] Jun, Acute left ankle pain M25.572 [facility] [address] [place] [address] Jun, [facility] [address] [place] [address] Jun, Acute left ankle pain M25.572 [facility] [address] [place] [address] Jun, Influenza vaccine needed Z23 and Irregul ar periods N92.6 [facility] [address] [place] [address] May, Mixed hyperlipidemia E78.2 [facility] [address] [place] [address] May, [facility] [address] [place] [address] May, Chronic GERD K21.9 [facility] [address] [place] [address] Apr, Weight gain R63.5 [facility] [address] [place] [address] Apr, Chronic GERD K21.9 and Weight gain R63.5 [facility] [address] [place] [address] Mar, Depression with anxiety F41.8 and Chroni c idiopathic constipation K59.09 [facility] [address] [place] [address] Mar, Other chronic pain G89.29 [facility] [address] [place] [address] Mar, Post herpetic neuralgia B02.29 [facility] [address] [place] [address] Mar, Post herpetic neuralgia B02.29 [facility] [address] [place] [address] Mar, [facility] [address] [place] [address] Mar, Other elevated white blood cell (WBC) co unt D72.[address] [address] Mar, Other elevated white blood cell (WBC) co unt D72.828 and Dyslipidemia E78.[address] [address] Feb, [address] [address] Feb, Vitamin D deficiency E55.9 ; Dyslipidemi a E78.5 ; Other elevated white blood cell (WBC) count D72.828 and Skin tag L91.[address] [address] Feb, [address] [address] Feb, Vitamin D deficiency E55.9 and Dyslipide sourav E78.[address] [address] Feb, [address] [address] Feb, Post herpetic neuralgia B02.29 ; Thyroid disorder screen Z13.29 ; Mixed hyperlipidemia E78.2 ; Chronic GERD K21.9 ; Lumbago of lumbar region with sciatica M54.40 ; Prediabetes R73.03 ; Other fatigue R53.83 ; Vitamin D deficiency E55.9 and Vitamin B 12 deficiency E53.[address] [address] Feb, Reactive airway disease, mild persistent , uncomplicated J45.[address] [address] Feb, Chronic GERD K21.[address] [address] Feb, Mixed hyperlipidemia E78.2 and Other chr onic pain G89.[address] [address] Feb, Lumbago with sciatica, left side M54.42 ; Mixed hyperlipidemia E78.2 and Reactive airway disease, mild persistent, uncomplicated J45.30 [facility] [address] [place] [address] Feb, Chronic GERD K21.9 [facility] [address] [place] [address] Feb, [facility] [address] [place] [address] Feb, [facility] [address] [place] [address] Feb, Post herpetic neuralgia B02.29 [facility] [address] [place] [address] Feb, Allergic contact dermatitis due to other agents L23.89 and Post herpetic neuralgia B02.29 [facility] [address] [place] [address] Feb, Chronic GERD K21.9 [facility] [address] [place] [address] Feb, Chronic GERD K21.[address] [address] January, Post herpetic neuralgia B02.29 [facility] [address] [place] [address] January, Lumbago with sciatica, left side M54.42 [facility] [address] [place] [address] January, [facility] [address] [place] [address] January, Lumbago of lumbar region with sciatica M 54.[address] [address] January, Other chronic pain G89.29 and Lumbago wi th sciatica, left side M54.42 [facility] [address] [place] [address] January, Depression with anxiety F41.8 [facility] [address] [place] [address] January, Mixed hyperlipidemia E78.2 [facility] [address] [place] [address] January, Abscess of left groin L02.214 [facility] [address] [place] [address] Dec, Depression with anxiety F41.8 [facility] [address] [place] [address] Dec, Irregular periods N92.[address] [address] Nov, Left wrist pain M25.532 and Acute left a nkle pain M25.[address] [address] Nov, Post herpetic neuralgia B02.29 and Absce ss of left groin L02.214 [facility] [address] [place] [address] Sep, Irregular periods N92.[address] [address] Sep, Mixed hyperlipidemia E78.2 ; Flank pain R10.9 and Post herpetic neuralgia B02.[address] [address] Aug, Lumbago of lumbar region with sciatica M 54.40 ; Chronic idiopathic constipation K59.09 ; Depression with anxiety F41.8 and Mixed hyperlipidemia E78.2 [facility] [address] [place] [address] Aug, Other chronic pain G89.[address] [address] Aug, Reactive airway disease, mild persistent , uncomplicated J45.[address] [address] Aug, [facility] [address] [place] [address] Aug, Cough R05 and Allergic contact dermatiti s due to other agents L23.[address] [address] Aug, [address] [address] Jul, Other chronic pain G89.[address] [address] Jul, Upper respiratory tract infection, unspe cified type J06.9 ; Chronic GERD K21.9 ; Acute left ankle pain M25.572 and Lumbago of lumbar region with sciatica M54.[address] [address] Jun, Other chronic pain G89.[address] [address] Jun, [address] [address] Jun, [address] [address] Jun, Chronic GERD K21.[address] [address] Jun, [address] [address] May, Pain in right wrist M25.531 ; Left wrist pain M25.532 ; Acute left ankle pain M25.572 ; Thoracic spine pain M54.6 ; Lumbago with sciatica, left side M54.42 ; Other chronic pain G89.29 and Dysuria R30.[address] [address] May, Chronic GERD K21.[address] [address] May, Chronic GERD K21.[address] [address] May, [address] [place] [address] 19 May, 2016 [facility] [address] [place] [address] 16 May, 2016 [facility] [address] [place] [address] 16 May, 2016 [facility] [address] [place] [address] 16 May, 2016 Mixed hyperlipidemia E78.2 ; Fibromyalgi a M79.7 ; Depression with anxiety F41.8 ; Lumbago of lumbar region with sciatica M54.40 ; Encounter to establish care Z76.89 ; Chronic GERD K21.9 ; History of gestational diabetes Z86.32 ; Chronic idiopathic constipation K59.09 ; Thyroid disorder screen Z13.29 and Need for influenza vaccination Z23 [facility] [address] [place] [phone] Apr, Gestational diabetes O24.419 [facility] [address] [place] [phone] Feb, Gestational diabetes O24.419 IMMUNIZATIONS No Known Immunizations SOCIAL HISTORY Never Assessed REASON FOR VISIT refills / PLAN OF CARE VITAL SIGNS MEDICATIONS Medication Instructions Dosage Frequency Start Date End Date Duration S tatus Zoloft 100 MG Orally Once a day 2 tablet 24h 30 days Active Colace 100 MG Orally Once a day 1 capsule as needed 24h 30 Active Pravastatin Sodium 20 MG TAKE [...]
--- OUTSIDE RECORDS SUMMARY | 2020-03-15 21:24 | XMS REPORT ---
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 Role Phone Felisha Sultana Unavailable PROBLEMS Type Condition ICD9-CM Code [id number] Code Onset Dates Condition S tatus SNOMED Code Problem Prediabetes R73.09 Active 53115034 2 Problem Chronic GERD K21.9 Active 5029081 09 Problem Mixed hyperlipidemia E78.2 Active 887562449 Problem Fibromyalgia M79.7 Active 7488359 05 Problem Depression with anxiety F41.8 Active 422237090 Problem History of gestational diabetes Z86.32 Active 183732482 Problem Chronic idiopathic constipation K59.09 Active 88381044 Problem Lumbago of lumbar region with sciatica M54.40 Active 34194971 Problem Acute left ankle pain M25.572 Active 12646375917118 Problem Generalized anxiety disorder F41.1 A ctive 60477560 Problem Thoracic spine pain M54.6 Active 331600788 Problem Absent periods N91.2 Active 03800 001 Problem Left wrist pain M25.532 Active 5660 8008 Problem Decreased hearing of left ear H91.92 Active 56911226 Problem Elevated blood pressure reading R03.0 Active 72144712 Problem Left hand pain M79.642 Active 80686 2746116825 Problem Excessive daytime sleepiness G47.19 A ctive 980999041331 Problem Menstrual cramps N94.6 Active 431 906629 Problem Pain in right wrist M25.531 Active 87787486 Problem Lumbago with sciatica, left side M54.42 Active 796919894 Problem Other chronic pain G89.29 Active 8 1689107 Problem Cigarette nicotine dependence, uncomplicated F17.2 10 Active 47432382 Problem Cervical pain M54.2 Active 668852 05 Problem Rosacea L71.9 Active 813366345 Problem Irritable bowel syndrome with diarrhea K58.0 Active 517460407 Problem Post herpetic neuralgia B02.29 Active 6700248 Problem Gestational diabetes O24.419 Active 74120810 Problem Irregular periods N92.6 Active 80 167528 Problem Plantar fasciitis M72.2 Active 20 8449856 Problem Reactive airway disease, mild persistent, uncomplicated J45.30 Active 884217962384 Problem Prediabetes R73.03 Active 10278158 2 Problem Other elevated white blood cell (WBC) count D72.82 8 Active 689636777 Problem Other fatigue R53.83 Active 525427 01 Problem Vitamin D deficiency E55.9 Active 45453234 ALLERGIES No Information ENCOUNTERS Encounter Location Date Diagnosis [place] [id number] Aug, [address] [address] 15 Jul, 2018 Irregular periods N92.6 and Menstrual cr amps N94.[address] [address] 14 Jul, [address] [address] Jul, [address] [address] 12 Jul, 2018 Abscess L02.[address] [address] 06 Jul, 2018 Mixed hyperlipidemia E78.2 ; Chronic ABDOUL D K21.9 and Generalized anxiety disorder F41.[address] [address] Jul, Well woman exam with routine gynecologic al exam Z01.419 ; Menstrual cramps N94.6 ; Acute left ankle pain M25.572 ; Snoring R06.83 and Excessive daytime sleepiness G47.[address] [address] Jun, Shingles B02.[address] [address] 18 Jun, 2018 Pruritic dermatitis L29.9 and Rosacea L7 1.[address] [address] Jun, [facility] [address] [place] [address] Jun, [facility] [address] [place] [address] Jun, [facility] [address] [place] [address] Jun, Butterfly rash R21 ; Influenza vaccine n eeded Z23 ; Prediabetes R73.09 ; Mixed hyperlipidemia E78.2 and Vitamin D deficiency E55.9 [facility] [address] [facility] [place] [address] Apr, Left ankle swelling M25.472 [facility] [address] [facility] [place] [address] Apr, [facility] [address] [place] [address] Apr, [facility] [address] [place] [address] Mar, Edema of left foot R60.0 [facility] [address] [place] [address] Mar, Irritable bowel syndrome with diarrhea K 58.0 [facility] [address] [place] [address] Mar, [facility] [address] [place] [address] Mar, [facility] [address] [place] [address] Mar, [facility] [address] [place] [address] Feb, Irritable bowel syndrome with diarrhea K 58.0 [facility] [address] [facility] [place] [address] Feb, [facility] [address] [place] [address] Feb, Irritable bowel syndrome with diarrhea K 58.0 [facility] [address] [place] [address] Feb, control counseling Z30.09 ; Lumbag o with sciatica, left side M54.42 and Chronic GERD K21.[address] [address] Feb, [address] [address] Feb, [address] [address] Feb, [address] [address] Feb, Diarrhea, unspecified type R19.[address] [address] Feb, Abnormal glucose R73.[address] [address] Feb, Abnormal glucose R73.[address] [address] Feb, Reactive airway disease, mild persistent , uncomplicated J45.[address] [address] Feb, Lumbago with sciatica, left side M54.42 ; Cigarette nicotine dependence, uncomplicated F17.210 ; Diarrhea, unspecified type R19.7 and Abnormal glucose R73.[address] [address] January, [address] [address] January, [address] [address] January, [address] [address] January, [address] [address] January, Muscle strain of chest wall, initial enc ounter S29.011A ; Physical exam Z00.00 ; Need for hepatitis vaccination Z23 and Abscess L02.[address] [place] [address] Dec, Left hand pain M79.642 ; Thoracic spine pain M54.6 ; Cervical pain M54.2 and Elevated blood pressure reading R03.[address] [address] Dec, Lumbago with sciatica, left side M54.42 and Decreased hearing of left ear H91.[address] [address] Dec, Other chest pain R07.89 ; Finger pain, l eft M79.645 ; Chronic GERD K21.9 and Muscle strain of chest wall, initial encounter S29.011A [address] [address] Dec, [address] [address] Dec, Other constipation K59.09 ; Irregular pe riods N92.6 and Absent periods N91.[address] [address] Oct, [address] [address] Oct, Weight gain R63.[address] [address] Oct, Generalized anxiety disorder F41.[address] [address] Sep, [address] [address] Sep, Absent periods N91.2 and Decreased heari ng of left ear H91.[address] [address] Sep, [address] [address] Sep, Pre-op exam Z01.818 and Abscess of chest wall L02.[address] [address] Sep, [address] [address] Sep, Prediabetes R73.09 ; Vitamin D deficienc y E55.9 ; Mixed hyperlipidemia E78.2 and Arthritis of ankle, left M19.[address] [address] Sep, Smoking trying to quit Z72.0 ; Chronic G ERD K21.9 ; Generalized anxiety disorder F41.1 ; Other chest pain R07.89 ; Other constipation K59.09 and Right upper quadrant pain R10.[address] [address] Aug, [address] [address] Aug, Other chronic pain G89.[address] [address] Aug, Mixed hyperlipidemia E78.2 ; Fibromyalgi a M79.7 ; Lumbago of lumbar region with sciatica M54.40 ; History of gestational diabetes Z86.32 ; Prediabetes R73.09 ; Vitamin D deficiency E55.9 ; Weight gain R63.5 ; control counseling Z30.09 ; Pain, dental K08.89 and Flank pain R10.[address] [address] Aug, [address] [address] Jun, Acute left ankle pain M25.[address] [address] Jun, [address] [address] Jun, [address] [address] Jun, Acute left ankle pain M25.[address] [address] Jun, [facility] [address] [place] [address] Jun, Acute left ankle pain M25.[address] [facility] [address] [place] [address] Jun, Influenza vaccine needed Z23 and Irregul ar periods N92.[address] [facility] [address] [place] [address] May, Mixed hyperlipidemia E78.[address] [facility] [address] [place] [address] May, [facility] [address] [place] [address] May, Chronic GERD K21.[address] [facility] [address] [place] [address] Apr, Weight gain R63.[address] [facility] [address] [place] [address] Apr, Chronic GERD K21.9 and Weight gain R63.[address] [facility] [address] [place] [address] Mar, Depression with anxiety F41.8 and Chroni c idiopathic constipation K59.[address] [facility] [address] [place] [address] Mar, Other chronic pain G89.[address] [facility] [address] [place] [address] Mar, Post herpetic neuralgia B02.[address] [facility] [address] [place] [address] Mar, Post herpetic neuralgia B02.[address] [facility] [address] [place] [address] Mar, [facility] [address] [place] [address] Mar, Other elevated white blood cell (WBC) co unt D72.[address] [facility] [address] [place] [address] Mar, Other elevated white blood cell (WBC) co unt D72.828 and Dyslipidemia E78.[address] [address] Feb, [address] [address] Feb, Vitamin D deficiency E55.9 ; Dyslipidemi a E78.5 ; Other elevated white blood cell (WBC) count D72.828 and Skin tag L91.[address] [address] Feb, [address] [address] Feb, Vitamin D deficiency E55.9 and Dyslipide sourav E78.[address] [address] Feb, [address] [address] Feb, Post herpetic neuralgia B02.29 ; Thyroid disorder screen Z13.29 ; Mixed hyperlipidemia E78.2 ; Chronic GERD K21.9 ; Lumbago of lumbar region with sciatica M54.40 ; Prediabetes R73.03 ; Other fatigue R53.83 ; Vitamin D deficiency E55.9 and Vitamin B 12 deficiency E53.[address] [address] Feb, Reactive airway disease, mild persistent , uncomplicated J45.[address] [address] Feb, Chronic GERD K21.[address] [address] Feb, Mixed hyperlipidemia E78.2 and Other chr onic pain G89.[address] [address] Feb, Lumbago with sciatica, left side M54.42 ; Mixed hyperlipidemia E78.2 and Reactive airway disease, mild persistent, uncomplicated J45.[address] [address] Feb, Chronic GERD K21.[address] [facility] [address] [place] [address] Feb, [facility] [address] [place] [address] Feb, [facility] [address] [place] [address] Feb, Post herpetic neuralgia B02.29 [facility] [address] [place] [address] Feb, Allergic contact dermatitis due to other agents L23.89 and Post herpetic neuralgia B02.[address] [facility] [address] [place] [address] Feb, Chronic GERD K21.[address] [facility] [address] [place] [address] Feb, Chronic GERD K21.[address] [facility] [address] [place] [address] January, Post herpetic neuralgia B02.[address] [facility] [address] [place] [address] January, Lumbago with sciatica, left side M54.[address] [facility] [address] [place] [address] January, [facility] [address] [place] [address] January, Lumbago of lumbar region with sciatica M 54.[address] [facility] [address] [place] [address] January, Other chronic pain G89.29 and Lumbago wi th sciatica, left side M54.[address] [facility] [address] [place] [address] January, Depression with anxiety F41.[address] [facility] [address] [place] [address] January, Mixed hyperlipidemia E78.[address] [facility] [address] [place] [address] January, Abscess of left groin L02.[address] [address] Dec, Depression with anxiety F41.[address] [address] Dec, Irregular periods N92.[address] [address] Nov, Left wrist pain M25.532 and Acute left a nkle pain M25.[address] [address] Nov, Post herpetic neuralgia B02.29 and Absce ss of left groin L02.[address] [address] Sep, Irregular periods N92.[address] [address] Sep, Mixed hyperlipidemia E78.2 ; Flank pain R10.9 and Post herpetic neuralgia B02.[address] [address] Aug, Lumbago of lumbar region with sciatica M 54.40 ; Chronic idiopathic constipation K59.09 ; Depression with anxiety F41.8 and Mixed hyperlipidemia E78.[address] [address] Aug, Other chronic pain G89.[address] [address] Aug, Reactive airway disease, mild persistent , uncomplicated J45.[address] [address] Aug, [address] [address] Aug, Cough R05 and Allergic contact dermatiti s due to other agents L23.[address] [address] Aug, [place] [address] [place] [address] Jul, Other chronic pain G89.[address] [address] Jul, Upper respiratory tract infection, unspe cified type J06.9 ; Chronic GERD K21.9 ; Acute left ankle pain M25.572 and Lumbago of lumbar region with sciatica M54.[address] [facility] [address] [place] [address] Jun, Other chronic pain G89.[address] [facility] [address] [place] [address] Jun, [address] [address] Jun, [address] [address] Jun, Chronic GERD K21.[address] [address] Jun, [facility] [address] [place] [address] 30 May, 2016 Pain in right wrist M25.531 ; Left wrist pain M25.532 ; Acute left ankle pain M25.572 ; Thoracic spine pain M54.6 ; Lumbago with sciatica, left side M54.42 ; Other chronic pain G89.29 and Dysuria R30.[address] [address] May, Chronic GERD K21.[address] [address] May, Chronic GERD K21.[address] [address] May, [address] [address] 19 May, [address] [address] 16 May, [address] [place] [address] 16 May, 2016 [facility] [address] [place] [address] 16 May, 2016 Mixed hyperlipidemia E78.2 ; Fibromyalgi a M79.7 ; Depression with anxiety F41.8 ; Lumbago of lumbar region with sciatica M54.40 ; Encounter to establish care Z76.89 ; Chronic GERD K21.9 ; History of gestational diabetes Z86.32 ; Chronic idiopathic constipation K59.09 ; Thyroid disorder screen Z13.29 and Need for influenza vaccination Z23 [facility] [address] [place] [phone] Apr, Gestational diabetes O24.419 [facility] [address] [place] [address] Feb, Gestational diabetes O24.419 IMMUNIZATIONS No Known Immunizations SOCIAL HISTORY Never Assessed REASON FOR VISIT FYI -- surgery on finger PLAN OF CARE VITAL SIGNS MEDICATIONS Unknown [...] Fused L ankle 09/2017 Hospitalization History [facility]- Hyperglycemia and February 2016 Hospitalization History Ankle surgery 09/2017
--- OUTSIDE RECORDS SUMMARY | 2020-03-15 21:24 | XMS REPORT ---
Author Author Solange Sultana [facility] Address [address] [place], [place] [id number] Care Team Providers Care V Belt Inspector Name Role Phone Felisha Sultana Unavailable PROBLEMS Type Condition ICD9-CM Code [id number] Code Onset Dates Condition S tatus SNOMED Code Problem Prediabetes R73.09 Active 12778892 2 Problem Chronic GERD K21.9 Active 0261602 09 Problem Mixed hyperlipidemia E78.2 Active 086963220 Problem Fibromyalgia M79.7 Active 9703854 05 Problem Depression with anxiety F41.8 Active 857707833 Problem History of gestational diabetes Z86.32 Active 885614990 Problem Chronic idiopathic constipation K59.09 Active 52516001 Problem Lumbago of lumbar region with sciatica M54.40 Active 10088525 Problem Acute left ankle pain M25.572 Active 85291350347777 Problem Generalized anxiety disorder F41.1 A ctive 83768859 Problem Thoracic spine pain M54.6 Active 884095371 Problem Absent periods N91.2 Active 68168 001 Problem Left wrist pain M25.532 Active 5660 8008 Problem Decreased hearing of left ear H91.92 Active 15142382 Problem Elevated blood pressure reading R03.0 Active 17655506 Problem Left hand pain M79.642 Active 20967 4965319259 Problem Excessive daytime sleepiness G47.19 A ctive 178422322437 Problem Menstrual cramps N94.6 Active 431 687826 Problem Pain in right wrist M25.531 Active 52237894 Problem Lumbago with sciatica, left side M54.42 Active 348465600 Problem Other chronic pain G89.29 Active 8 3464916 Problem Cigarette nicotine dependence, uncomplicated F17.2 10 Active 29809405 Problem Cervical pain M54.2 Active 527025 05 Problem Rosacea L71.9 Active 679873768 Problem Irritable bowel syndrome with diarrhea K58.0 Active 145288029 Problem Post herpetic neuralgia B02.29 Active 3129677 Problem Gestational diabetes O24.419 Active 42596033 Problem Irregular periods N92.6 Active 80 498563 Problem Plantar fasciitis M72.2 Active 20 0454919 Problem Reactive airway disease, mild persistent, uncomplicated J45.30 Active 862641987731 Problem Prediabetes R73.03 Active 29044837 2 Problem Other elevated white blood cell (WBC) count D72.82 8 Active 451400333 Problem Other fatigue R53.83 Active 360828 01 Problem Vitamin D deficiency E55.9 Active 67706669 ALLERGIES Substance Reaction Event Type Date Status Oxycodone HCl vomitting Drug Allergy Jul, Active Hydrocodone-Acetaminophen vomitting Drug Allergy Jul, Ac tive all medical tape rash Non Drug Allergy Jul, Active latex rash Non Drug Allergy Jul, Active ENCOUNTERS Encounter Location Date Diagnosis [address] [address] Aug, [address] [address] Jul, Abscess L02.[address] [address] Jul, Mixed hyperlipidemia E78.2 ; Chronic ABDOUL D K21.9 and Generalized anxiety disorder F41.[address] [address] Jul, Well woman exam with routine gynecologic al exam Z01.419 ; Menstrual cramps N94.6 ; Acute left ankle pain M25.572 ; Snoring R06.83 and Excessive daytime sleepiness G47.[address] [address] Jun, Shingles B02.[address] [address] Jun, Pruritic dermatitis L29.9 and Rosacea L7 1.[address] [address] Jun, [address] [address] Jun, [facility] [address] [place] [address] Jun, [facility] [address] [place] [address] Jun, Butterfly rash R21 ; Influenza vaccine n eeded Z23 ; Prediabetes R73.09 ; Mixed hyperlipidemia E78.2 and Vitamin D deficiency E55.9 [facility] [address] [place] [address] Apr, Left ankle swelling M25.472 [facility] [address] [place] [address] Apr, [facility] [address] [place] [address], [place] [address] Apr, [facility] [address] [place] [address] Mar, Edema of left foot R60.0 [facility] [address] [place] [address], [place] [address] Mar, Irritable bowel syndrome with diarrhea K 58.0 [facility] [address] [place] [address] Mar, [facility] [address] [place] [address], [place] [address] Mar, [facility] [address] [place] [address] Mar, [facility] [address] [place] [address] Feb, Irritable bowel syndrome with diarrhea K 58.0 [facility] [address] [place] [address] Feb, [facility] [address] [place] [address], [place] [address] Feb, Irritable bowel syndrome with diarrhea K 58.0 [facility] [address] [place] [address] Feb, control counseling Z30.09 ; Lumbag o with sciatica, left side M54.42 and Chronic GERD K21.9 [facility] [address] [address] Feb, [address] [address] Feb, [address] [address] Feb, [address] [address] Feb, Diarrhea, unspecified type R19.[address] [address] Feb, Abnormal glucose R73.[address] [address] Feb, Abnormal glucose R73.[address] [address] Feb, Reactive airway disease, mild persistent , uncomplicated J45.[address] [address] Feb, Lumbago with sciatica, left side M54.42 ; Cigarette nicotine dependence, uncomplicated F17.210 ; Diarrhea, unspecified type R19.7 and Abnormal glucose R73.[address] [address] January, [address] [address] January, [address] [address] January, [address] [address] January, [address] [address] January, Muscle strain of chest wall, initial enc ounter S29.011A ; Physical exam Z00.00 ; Need for hepatitis vaccination Z23 and Abscess L02.[address] [address] Dec, Left hand pain M79.642 ; Thoracic spine pain M54.6 ; Cervical pain M54.2 and Elevated blood pressure reading R03.[address] [address] Dec, Lumbago with sciatica, left side M54.42 and Decreased hearing of left ear H91.[address] [address] Dec, Other chest pain R07.89 ; Finger pain, l eft M79.645 ; Chronic GERD K21.9 and Muscle strain of chest wall, initial encounter S29.011A [address] [address] Dec, [address] [address] Dec, Other constipation K59.09 ; Irregular pe riods N92.6 and Absent periods N91.[address] [address] Oct, [address] [address] Oct, Weight gain R63.[address] [address] Oct, Generalized anxiety disorder F41.[address] [address] Sep, [address] [address] Sep, Absent periods N91.2 and Decreased heari ng of left ear H91.[address] [address] Sep, [address] [address] Sep, Pre-op exam Z01.818 and Abscess of chest wall L02.[address] [address] Sep, [address] [address] Sep, Prediabetes R73.09 ; Vitamin D deficienc y E55.9 ; Mixed hyperlipidemia E78.2 and Arthritis of ankle, left M19.[address] [address] Sep, Smoking trying to quit Z72.0 ; Chronic G ERD K21.9 ; Generalized anxiety disorder F41.1 ; Other chest pain R07.89 ; Other constipation K59.09 and Right upper quadrant pain R10.[address] [address] Aug, [address] [address] Aug, Other chronic pain G89.[address] [address] Aug, Mixed hyperlipidemia E78.2 ; Fibromyalgi a M79.7 ; Lumbago of lumbar region with sciatica M54.40 ; History of gestational diabetes Z86.32 ; Prediabetes R73.09 ; Vitamin D deficiency E55.9 ; Weight gain R63.5 ; control counseling Z30.09 ; Pain, dental K08.89 and Flank pain R10.[address] [address] Aug, [address] [address] Jun, Acute left ankle pain M25.[address] [address] Jun, [address] [address] Jun, [address] [address] Jun, Acute left ankle pain M25.[address] [address] Jun, [address] [address] Jun, Acute left ankle pain M25.[address] [place] [address] Jun, Influenza vaccine needed Z23 and Irregul ar periods N92.6 [facility] [address] [place] [address] May, Mixed hyperlipidemia E78.2 [facility] [address] [place] [address] May, [facility] [address] [place] [address] May, Chronic GERD K21.9 [facility] [address] [place] [address] Apr, Weight gain R63.[address] [address] Apr, Chronic GERD K21.9 and Weight gain R63.[address] [address] Mar, Depression with anxiety F41.8 and Chroni c idiopathic constipation K59.09 [facility] [address] [place] [address] Mar, Other chronic pain G89.[address] [address] Mar, Post herpetic neuralgia B02.29 [facility] [address] [place] [address] Mar, Post herpetic neuralgia B02.29 [facility] [address] [place] [address] Mar, [facility] [address] [place] [address] Mar, Other elevated white blood cell (WBC) co unt D72.[address] [address] Mar, Other elevated white blood cell (WBC) co unt D72.828 and Dyslipidemia E78.5 [facility] [address] [place] [address] Feb, [facility] [address] [place] [address] Feb, Vitamin D deficiency E55.9 ; Dyslipidemi a E78.5 ; Other elevated white blood cell (WBC) count D72.828 and Skin tag L91.[address] [address] Feb, [address] [address] Feb, Vitamin D deficiency E55.9 and Dyslipide sourav E78.[address] [address] Feb, [address] [address] Feb, Post herpetic neuralgia B02.29 ; Thyroid disorder screen Z13.29 ; Mixed hyperlipidemia E78.2 ; Chronic GERD K21.9 ; Lumbago of lumbar region with sciatica M54.40 ; Prediabetes R73.03 ; Other fatigue R53.83 ; Vitamin D deficiency E55.9 and Vitamin B 12 deficiency E53.[address] [address] Feb, Reactive airway disease, mild persistent , uncomplicated J45.[address] [address] Feb, Chronic GERD K21.[address] [address] Feb, Mixed hyperlipidemia E78.2 and Other chr onic pain G89.[address] [address] Feb, Lumbago with sciatica, left side M54.42 ; Mixed hyperlipidemia E78.2 and Reactive airway disease, mild persistent, uncomplicated J45.[address] [address] Feb, Chronic GERD K21.[address] [address] Feb, [facility] [address] [place] [address] Feb, [facility] [address] [place] [address] Feb, Post herpetic neuralgia B02.29 [facility] [address] [place] [address] 16 Feb, 2017 Allergic contact dermatitis due to other agents L23.89 and Post herpetic neuralgia B02.29 [facility] [address] [place] [address] 16 Feb, 2017 Chronic GERD K21.9 [facility] [address] [place] [address] Feb, Chronic GERD K21.9 [facility] [address] [place] [address] January, Post herpetic neuralgia B02.29 [facility] [address] [place] [address] January, Lumbago with sciatica, left side M54.42 [facility] [address] [place] [address] January, [facility] [address] [place] [address] January, Lumbago of lumbar region with sciatica M 54.40 [facility] [address] [place] [address] January, Other chronic pain G89.29 and Lumbago wi th sciatica, left side M54.42 [facility] [address] [place] [address] January, Depression with anxiety F41.8 [facility] [address] [place] [address] January, Mixed hyperlipidemia E78.2 [facility] [address] [place] [address] January, Abscess of left groin L02.214 [facility] [address] [place] [address] Dec, Depression with anxiety F41.[address] [address] Dec, Irregular periods N92.[address] [address] Nov, Left wrist pain M25.532 and Acute left a nkle pain M25.[address] [address] Nov, Post herpetic neuralgia B02.29 and Absce ss of left groin L02.[address] [address] Sep, Irregular periods N92.[address] [address] Sep, Mixed hyperlipidemia E78.2 ; Flank pain R10.9 and Post herpetic neuralgia B02.[address] [address] Aug, Lumbago of lumbar region with sciatica M 54.40 ; Chronic idiopathic constipation K59.09 ; Depression with anxiety F41.8 and Mixed hyperlipidemia E78.[address] [address] Aug, Other chronic pain G89.[address] [address] Aug, Reactive airway disease, mild persistent , uncomplicated J45.[address] [address] Aug, [address] [address] Aug, Cough R05 and Allergic contact dermatiti s due to other agents L23.[address] [address] Aug, [address] [address] Jul, Other chronic pain G89.29 [address] [place] [address] Jul, Upper respiratory tract infection, unspe cified type J06.9 ; Chronic GERD K21.9 ; Acute left ankle pain M25.572 and Lumbago of lumbar region with sciatica M54.[address] [address] Jun, Other chronic pain G89.[address] [address] Jun, [facility] [address] [place] [address] Jun, [address] [address] Jun, Chronic GERD K21.[address] [address] Jun, [address] [address] May, Pain in right wrist M25.531 ; Left wrist pain M25.532 ; Acute left ankle pain M25.572 ; Thoracic spine pain M54.6 ; Lumbago with sciatica, left side M54.42 ; Other chronic pain G89.29 and Dysuria R30.[address] [address] May, Chronic GERD K21.[address] [address] May, Chronic GERD K21.[address] [address] May, [address] [address] May, [address] [address] May, [address] [address] May, [address] [address] May, Mixed hyperlipidemia E78.2 ; Fibromyalgi a M79.7 ; Depression with anxiety F41.8 ; Lumbago of lumbar region with sciatica M54.40 ; Encounter to establish care Z76.89 ; Chronic GERD K21.9 ; History of gestational diabetes Z86.32 ; Chronic idiopathic constipation K59.09 ; Thyroid disorder screen Z13.29 and Need for influenza vaccination Z23 [facility] [address] [place] [address] Apr, Gestational diabetes O24.419 [facility] [address] [place], [place] [address] Feb, Gestational diabetes O24.419 IMMUNIZATIONS Vaccine Route Administration Date Status TWINRIX IM Intramuscular Jul 30, 2018 Administered SOCIAL HISTORY Never Assessed REASON FOR VISIT pap smear PLAN OF CARE Activity Details Follow Up 3 Months, prn Reason: Pending Test Wet Prep w/ Reflex to Tricho monas Culture 59590 Pending Test Chlamydia / Gonorrhea (GC), ANGELA [address]198 40377 Pending Test Ultrasound : Pelvic Non/OB Future/Pending Procedure Sleep latency or maintenance of wakefulness testing, recording, analysis and interpretation of physiological measurements of sleep during multiple trials to assess sleepiness VITAL SIGNS Height 69.5 in 2018-07-30 Weight 315 lbs 2018-07-30 Temperature 97.7 degrees Fahrenheit 2018-07-30 Heart Rate 88 /min 2018-07-30 Oximetry 96 % 2018-07-30 BMI 45.85 kg/m2 2018-07-30 Blood pressure systolic 120 mm Hg 2018-07-30 Blood pressure diastolic 80 mm Hg 2018-07-30 MEDICATIONS Medication Instructions Dosage Frequency Start Date End Date Duration S tatus Gabapentin 600 MG Orally five times daily 1 tablet Active Mobic 15 MG Orally Once a day 1 tablet 24h Jul, 90 d ays Active Metronidazole 1 % Externally Once a day 1 application to affected a stacey 24h Jun, 14 days Active Pantoprazole Sodium 40 MG Orally BID 1 tablet 12h Jul, 30 days Active Multivitamin Adult - Act nancy Cyclobenzaprine HCl 10 MG TAKE 1 TABLET BY MOUTH THREE (3) T IMES DAILY 10 Active Sertraline HCl 100 MG Orally Once a day 2 tablet 24h Active MorphaBond ER 15 MG Orally every 12 hrs 1 tablet 12h Aug, 30 days Not-Taking Victoza 18 MG/3ML Subcutaneous inject 1.8 Once daily as directed Feb, Not-Taking Tramadol HCl 50 MG Orally Three times daily take 1 tablet b y mouth three times daily 30 Active PredniSONE 10 MG Orally 6-5-4-3-2-1 as directed Jun, 6 days Active Cleocin-T 1 % Externally Apply a thin film to affected area twice daily 1 application to affected area Jun, Active Pravastatin Sodium 20 MG TAKE 1 TABLET BY MOUTH EVERY NIGHT AT BEDTIME 90 Active MedroxyPROGESTERone Acetate 10 MG Orally Once a day 1 tablet with f ood 24h Sep, Not-Taking Nortriptyline HCl 25 MG Orally QHS 1 capsule 30 Active Zoloft 100 MG Orally Once a day 2 tablet 24h Active Benefiber - Orally Two times daily 2 May, 30 days Not-Taking Ventolin HFA 108 (90 Base) MCG/ACT Inhalation every 4 hrs 2 puffs a s needed 4h Aug, 30 days Active Colace 100 MG Orally Once a day 1 capsule as needed 24h 30 Active Fiber Not-Taking RESULTS No Results PROCEDURES Procedure Date Ordered Result Body Site CYTOPATH, C/V, THIN LAYER Jul 30, 2018 CHYLMD TRACH, DNA, AMP PROBE Jul 30, 2018 IMMUNIZATION ADMIN Jul 30, 2018 HEP A/HEP B VACC, ADULT IM Jul 30, 2018 SMEAR, WET MOUNT, SALINE/INK Jul 30, 2018 N.GONORRHOEAE, DNA, AMP PROB Jul 30, 2018 MULTIPLE SLEEP LATENCY TEST Jul 30, 2018 INSTRUCTIONS MEDICATIONS ADMINISTERED No Known Medications MEDICAL [...] Fused L ankle 09/[address] [facility]- Hyperglycemia and February 2016 Hospitalization History Ankle surgery 09/2017
--- OUTSIDE RECORDS SUMMARY | 2020-03-15 21:24 | XMS REPORT ---
Author Author Solange Sultana [facility] Address [address], [place] [id number] Care Team Providers Care Inspecting Engineer Name Role Phone Felisha Sultana Unavailable PROBLEMS Type Condition ICD9-CM Code [id number] Code Onset Dates Condition S tatus SNOMED Code Problem Prediabetes R73.09 Active 22515890 2 Problem Chronic GERD K21.9 Active 4694478 09 Problem Mixed hyperlipidemia E78.2 Active 255500758 Problem Fibromyalgia M79.7 Active 5337748 05 Problem Depression with anxiety F41.8 Active 277064374 Problem History of gestational diabetes Z86.32 Active 684220411 Problem Chronic idiopathic constipation K59.09 Active 97666612 Problem Lumbago of lumbar region with sciatica M54.40 Active 69215992 Problem Acute left ankle pain M25.572 Active 86526064187718 Problem Generalized anxiety disorder F41.1 A ctive 15246581 Problem Thoracic spine pain M54.6 Active 563640387 Problem Absent periods N91.2 Active 39368 001 Problem Left wrist pain M25.532 Active 5660 8008 Problem Decreased hearing of left ear H91.92 Active 22555091 Problem Elevated blood pressure reading R03.0 Active 16629584 Problem Left hand pain M79.642 Active 06826 8504762568 Problem Excessive daytime sleepiness G47.19 A ctive 123028396557 Problem Menstrual cramps N94.6 Active 431 694286 Problem Pain in right wrist M25.531 Active 09820867 Problem Lumbago with sciatica, left side M54.42 Active 340396728 Problem Other chronic pain G89.29 Active 8 6595377 Problem Cigarette nicotine dependence, uncomplicated F17.2 10 Active 32518494 Problem Cervical pain M54.2 Active 760911 05 Problem Rosacea L71.9 Active 707829476 Problem Irritable bowel syndrome with diarrhea K58.0 Active 923474685 Problem Post herpetic neuralgia B02.29 Active 7780612 Problem Gestational diabetes O24.419 Active 48003003 Problem Irregular periods N92.6 Active 80 197095 Problem Plantar fasciitis M72.2 Active 20 4617171 Problem Reactive airway disease, mild persistent, uncomplicated J45.30 Active 648017004238 Problem Prediabetes R73.03 Active 68996714 2 Problem Other elevated white blood cell (WBC) count D72.82 8 Active 884903188 Problem Other fatigue R53.83 Active 961794 01 Problem Vitamin D deficiency E55.9 Active 59111843 ALLERGIES No Information ENCOUNTERS Encounter Location Date Diagnosis [place] [id number] Aug, [address] [address] 15 Jul, 2018 Irregular periods N92.6 and Menstrual cr amps N94.[address] [address] 14 Jul, [address] [address] Jul, [address] [address] 12 Jul, 2018 Abscess L02.[address] [address] 06 Jul, 2018 Mixed hyperlipidemia E78.2 ; Chronic ABDOUL D K21.9 and Generalized anxiety disorder F41.[address] [address] Jul, Well woman exam with routine gynecologic al exam Z01.419 ; Menstrual cramps N94.6 ; Acute left ankle pain M25.572 ; Snoring R06.83 and Excessive daytime sleepiness G47.[address] [address] Jun, Shingles B02.[address] [address] 18 Jun, 2018 Pruritic dermatitis L29.9 and Rosacea L7 1.[address] [address] Jun, [facility] [address] [place] [address] Jun, [facility] [address] [place] [address] Jun, [facility] [address] [place] [address] Jun, Butterfly rash R21 ; Influenza vaccine n eeded Z23 ; Prediabetes R73.09 ; Mixed hyperlipidemia E78.2 and Vitamin D deficiency E55.9 [facility] [address] [place] [address] Apr, Left ankle swelling M25.472 [facility] [address] [place] [address] Apr, [facility] [address] [place] [address] Apr, [facility] [address] [place] [address] Mar, Edema of left foot R60.0 [facility] [address] [place] [address] Mar, Irritable bowel syndrome with diarrhea K 58.0 [facility] [address] [place] [address] Mar, [facility] [address] [place] [address] Mar, [facility] [address] [place] [address] Mar, [facility] [address] [place] [address] Feb, Irritable bowel syndrome with diarrhea K 58.0 [facility] [address] [place] [address] Feb, [facility] [address] [place] [address] Feb, Irritable bowel syndrome with diarrhea K 58.0 [facility] [address] [place] [address] Feb, control counseling Z30.09 ; Lumbag o with sciatica, left side M54.42 and Chronic GERD K21.[address] [address] Feb, [address] [address] Feb, [address] [address] Feb, [address] [address] Feb, Diarrhea, unspecified type R19.[address] [address] Feb, Abnormal glucose R73.[address] [address] Feb, Abnormal glucose R73.[address] [address] Feb, Reactive airway disease, mild persistent , uncomplicated J45.[address] [address] Feb, Lumbago with sciatica, left side M54.42 ; Cigarette nicotine dependence, uncomplicated F17.210 ; Diarrhea, unspecified type R19.7 and Abnormal glucose R73.[address] [address] January, [address] [address] January, [address] [address] January, [address] [address] January, [address] [address] January, Muscle strain of chest wall, initial enc ounter S29.011A ; Physical exam Z00.00 ; Need for hepatitis vaccination Z23 and Abscess L02.[address] [place] [address] Dec, Left hand pain M79.642 ; Thoracic spine pain M54.6 ; Cervical pain M54.2 and Elevated blood pressure reading R03.[address] [address] Dec, Lumbago with sciatica, left side M54.42 and Decreased hearing of left ear H91.[address] [address] Dec, Other chest pain R07.89 ; Finger pain, l eft M79.645 ; Chronic GERD K21.9 and Muscle strain of chest wall, initial encounter S29.011A [address] [address] Dec, [address] [address] Dec, Other constipation K59.09 ; Irregular pe riods N92.6 and Absent periods N91.[address] [address] Oct, [address] [address] Oct, Weight gain R63.[address] [address] Oct, Generalized anxiety disorder F41.[address] [address] Sep, [address] [address] Sep, Absent periods N91.2 and Decreased heari ng of left ear H91.[address] [address] Sep, [address] [address] Sep, Pre-op exam Z01.818 and Abscess of chest wall L02.[address] [address] Sep, [address] [address] Sep, Prediabetes R73.09 ; Vitamin D deficienc y E55.9 ; Mixed hyperlipidemia E78.2 and Arthritis of ankle, left M19.[address] [address] Sep, Smoking trying to quit Z72.0 ; Chronic G ERD K21.9 ; Generalized anxiety disorder F41.1 ; Other chest pain R07.89 ; Other constipation K59.09 and Right upper quadrant pain R10.[address] [address] Aug, [address] [address] Aug, Other chronic pain G89.[address] [address] Aug, Mixed hyperlipidemia E78.2 ; Fibromyalgi a M79.7 ; Lumbago of lumbar region with sciatica M54.40 ; History of gestational diabetes Z86.32 ; Prediabetes R73.09 ; Vitamin D deficiency E55.9 ; Weight gain R63.5 ; control counseling Z30.09 ; Pain, dental K08.89 and Flank pain R10.[address] [address] Aug, [address] [address] Jun, Acute left ankle pain M25.[address] [address] Jun, [address] [address] Jun, [address] [address] Jun, Acute left ankle pain M25.[address] [address] Jun, [facility] [address] [place] [address] Jun, Acute left ankle pain M25.[address] [facility] [address] [place] [address] Jun, Influenza vaccine needed Z23 and Irregul ar periods N92.[address] [facility] [address] [place] [address] May, Mixed hyperlipidemia E78.[address] [facility] [address] [place] [address] May, [facility] [address] [place] [address] May, Chronic GERD K21.[address] [facility] [address] [place] [address] Apr, Weight gain R63.[address] [facility] [address] [place] [address] Apr, Chronic GERD K21.9 and Weight gain R63.[address] [facility] [address] [place] [address] Mar, Depression with anxiety F41.8 and Chroni c idiopathic constipation K59.[address] [facility] [address] [place] [address] Mar, Other chronic pain G89.[address] [facility] [address] [place] [address] Mar, Post herpetic neuralgia B02.[address] [facility] [address] [place] [address] Mar, Post herpetic neuralgia B02.[address] [facility] [address] [place] [address] Mar, [facility] [address] [place] [address] Mar, Other elevated white blood cell (WBC) co unt D72.[address] [facility] [address] [place] [address] Mar, Other elevated white blood cell (WBC) co unt D72.828 and Dyslipidemia E78.[address] [address] Feb, [address] [address] Feb, Vitamin D deficiency E55.9 ; Dyslipidemi a E78.5 ; Other elevated white blood cell (WBC) count D72.828 and Skin tag L91.[address] [address] Feb, [address] [address] Feb, Vitamin D deficiency E55.9 and Dyslipide sourav E78.[address] [address] Feb, [address] [address] Feb, Post herpetic neuralgia B02.29 ; Thyroid disorder screen Z13.29 ; Mixed hyperlipidemia E78.2 ; Chronic GERD K21.9 ; Lumbago of lumbar region with sciatica M54.40 ; Prediabetes R73.03 ; Other fatigue R53.83 ; Vitamin D deficiency E55.9 and Vitamin B 12 deficiency E53.[address] [address] Feb, Reactive airway disease, mild persistent , uncomplicated J45.[address] [address] Feb, Chronic GERD K21.[address] [address] Feb, Mixed hyperlipidemia E78.2 and Other chr onic pain G89.[address] [address] Feb, Lumbago with sciatica, left side M54.42 ; Mixed hyperlipidemia E78.2 and Reactive airway disease, mild persistent, uncomplicated J45.[address] [address] Feb, Chronic GERD K21.[address] [facility] [address] [place] [address] Feb, [facility] [address] [place] [address] Feb, [facility] [address] [place] [address] Feb, Post herpetic neuralgia B02.29 [facility] [address] [place] [address] Feb, Allergic contact dermatitis due to other agents L23.89 and Post herpetic neuralgia B02.[address] [facility] [address] [place] [address] Feb, Chronic GERD K21.[address] [facility] [address] [place] [address] Feb, Chronic GERD K21.[address] [facility] [address] [place] [address] January, Post herpetic neuralgia B02.[address] [facility] [address] [place] [address] January, Lumbago with sciatica, left side M54.[address] [facility] [address] [place] [address] January, [facility] [address] [place] [address] January, Lumbago of lumbar region with sciatica M 54.[address] [facility] [address] [place] [address] January, Other chronic pain G89.29 and Lumbago wi th sciatica, left side M54.[address] [facility] [address] [place] [address] January, Depression with anxiety F41.[address] [facility] [address] [place] [address] January, Mixed hyperlipidemia E78.[address] [facility] [address] [place] [address] January, Abscess of left groin L02.[address] [address] Dec, Depression with anxiety F41.[address] [address] Dec, Irregular periods N92.[address] [address] Nov, Left wrist pain M25.532 and Acute left a nkle pain M25.[address] [address] Nov, Post herpetic neuralgia B02.29 and Absce ss of left groin L02.[address] [address] Sep, Irregular periods N92.[address] [address] Sep, Mixed hyperlipidemia E78.2 ; Flank pain R10.9 and Post herpetic neuralgia B02.[address] [address] Aug, Lumbago of lumbar region with sciatica M 54.40 ; Chronic idiopathic constipation K59.09 ; Depression with anxiety F41.8 and Mixed hyperlipidemia E78.[address] [address] Aug, Other chronic pain G89.[address] [address] Aug, Reactive airway disease, mild persistent , uncomplicated J45.[address] [address] Aug, [address] [address] Aug, Cough R05 and Allergic contact dermatiti s due to other agents L23.[address] [address] Aug, [place] [address] [place] [address] Jul, Other chronic pain G89.[address] [address] Jul, Upper respiratory tract infection, unspe cified type J06.9 ; Chronic GERD K21.9 ; Acute left ankle pain M25.572 and Lumbago of lumbar region with sciatica M54.[address] [facility] [address] [place] [address] Jun, Other chronic pain G89.[address] [facility] [address] [place] [address] Jun, [address] [address] Jun, [address] [address] Jun, Chronic GERD K21.[address] [address] Jun, [facility] [address] [place] [address] 30 May, 2016 Pain in right wrist M25.531 ; Left wrist pain M25.532 ; Acute left ankle pain M25.572 ; Thoracic spine pain M54.6 ; Lumbago with sciatica, left side M54.42 ; Other chronic pain G89.29 and Dysuria R30.[address] [address] May, Chronic GERD K21.[address] [address] May, Chronic GERD K21.[address] [address] May, [address] [address] 19 May, [address] [address] 16 May, [address] [place] [address] 16 May, 2016 [facility] [address] [place] [address] 16 May, 2016 Mixed hyperlipidemia E78.2 ; Fibromyalgi a M79.7 ; Depression with anxiety F41.8 ; Lumbago of lumbar region with sciatica M54.40 ; Encounter to establish care Z76.89 ; Chronic GERD K21.9 ; History of gestational diabetes Z86.32 ; Chronic idiopathic constipation K59.09 ; Thyroid disorder screen Z13.29 and Need for influenza vaccination Z23 [facility] [address] [place] [address] Apr, Gestational diabetes O24.419 [facility] [address] [place] [phone] Feb, Gestational diabetes O24.419 IMMUNIZATIONS No Known Immunizations SOCIAL HISTORY Never Assessed REASON FOR VISIT OBGYN PLAN OF CARE VITAL SIGNS MEDICATIONS Unknown [...] Fused L ankle 09/[address] [facility]- Hyperglycemia and February 2016 Hospitalization History Ankle surgery 09/2017
--- OUTSIDE RECORDS SUMMARY | 2020-03-15 21:24 | XMS REPORT ---
Author Author Solange Sultana [facility] Address [address], [place] [id number] Care Team Providers Care Budget Analyst Name Role Phone Felisha Sultana Unavailable PROBLEMS Type Condition ICD9-CM Code LIC91-SK Code Onset Dates Condition S tatus SNOMED Code Problem Prediabetes R73.09 Active 84634641 2 Problem Chronic GERD K21.9 Active 9223874 09 Problem Mixed hyperlipidemia E78.2 Active 430507442 Problem Fibromyalgia M79.7 Active 0886630 05 Problem Depression with anxiety F41.8 Active 735009677 Problem History of gestational diabetes Z86.32 Active 980452326 Problem Chronic idiopathic constipation K59.09 Active 89935570 Problem Lumbago of lumbar region with sciatica M54.40 Active 79234163 Problem Acute left ankle pain M25.572 Active 58404583835342 Problem Generalized anxiety disorder F41.1 A ctive 79068324 Problem Thoracic spine pain M54.6 Active 282839100 Problem Absent periods N91.2 Active 52764 001 Problem Left wrist pain M25.532 Active 5660 8008 Problem Decreased hearing of left ear H91.92 Active 09101406 Problem Elevated blood pressure reading R03.0 Active 03464538 Problem Left hand pain M79.642 Active 24397 5046008073 Problem Excessive daytime sleepiness G47.19 A ctive 427167101309 Problem Menstrual cramps N94.6 Active 431 371726 Problem Pain in right wrist M25.531 Active 98043850 Problem Lumbago with sciatica, left side M54.42 Active 248726424 Problem Other chronic pain G89.29 Active 8 0151381 Problem Cigarette nicotine dependence, uncomplicated F17.2 10 Active 36463923 Problem Cervical pain M54.2 Active 153098 05 Problem Rosacea L71.9 Active 673194887 Problem Irritable bowel syndrome with diarrhea K58.0 Active 563595874 Problem Post herpetic neuralgia B02.29 Active 5155807 Problem Gestational diabetes O24.419 Active 50446296 Problem Irregular periods N92.6 Active 80 482900 Problem Plantar fasciitis M72.2 Active 20 7689167 Problem Reactive airway disease, mild persistent, uncomplicated J45.30 Active 364344883800 Problem Prediabetes R73.03 Active 95028327 2 Problem Other elevated white blood cell (WBC) count D72.82 8 Active 886892130 Problem Other fatigue R53.83 Active 552633 01 Problem Vitamin D deficiency E55.9 Active 79658862 ALLERGIES No Information ENCOUNTERS Encounter Location Date Diagnosis [address] [address] Aug, [address] [address] Jul, [address] [address] Jul, [address] [address] Jul, Abscess L02.[address] [address] Jul, Mixed hyperlipidemia E78.2 ; Chronic ABDOUL D K21.9 and Generalized anxiety disorder F41.[address] [address] Jul, Well woman exam with routine gynecologic al exam Z01.419 ; Menstrual cramps N94.6 ; Acute left ankle pain M25.572 ; Snoring R06.83 and Excessive daytime sleepiness G47.[address] [address] Jun, Shingles B02.[address] [address] Jun, Pruritic dermatitis L29.9 and Rosacea L7 1.[address] [address] Jun, [address] [address] Jun, [facility] [address] [facility] [address] Jun, [facility] [address] [place] [address] Jun, Butterfly rash R21 ; Influenza vaccine n eeded Z23 ; Prediabetes R73.09 ; Mixed hyperlipidemia E78.2 and Vitamin D deficiency E55.[address] [facility] [address] [place] [address] Apr, Left ankle swelling M25.472 [facility] [address] [facility] [address] Apr, [facility] [address] [place] [address] Apr, [facility] [address] [place] [address] Mar, Edema of left foot R60.[address] [facility] [address] [place] [address] Mar, Irritable bowel syndrome with diarrhea K 58.0 [facility] [address] [place] [address] Mar, [facility] [address] [place] [address] Mar, [facility] [address] [place] [address] Mar, [facility] [address] [place] [address] Feb, Irritable bowel syndrome with diarrhea K 58.0 [facility] [address] [place] [address] Feb, [facility] [address] [place] [address] Feb, Irritable bowel syndrome with diarrhea K 58.[address] [facility] [address] [place] [address] Feb, control counseling Z30.09 ; Lumbag o with sciatica, left side M54.42 and Chronic GERD K21.[address] [facility] [address] [place] [address] Feb, [facility] [address] [place] [address] Feb, [facility] [address] [place] [address] Feb, [facility] [address] [place] [address] Feb, Diarrhea, unspecified type R19.[address] [address] Feb, Abnormal glucose R73.[address] [address] Feb, Abnormal glucose R73.[address] [address] Feb, Reactive airway disease, mild persistent , uncomplicated J45.[address] [address] Feb, Lumbago with sciatica, left side M54.42 ; Cigarette nicotine dependence, uncomplicated F17.210 ; Diarrhea, unspecified type R19.7 and Abnormal glucose R73.[address] [address] January, [address] [address] January, [address] [address] January, [address] [address] January, [address] [address] January, Muscle strain of chest wall, initial enc ounter S29.011A ; Physical exam Z00.00 ; Need for hepatitis vaccination Z23 and Abscess L02.[address] [address] Dec, Left hand pain M79.642 ; Thoracic spine pain M54.6 ; Cervical pain M54.2 and Elevated blood pressure reading R03.[address] [address] Dec, Lumbago with sciatica, left side M54.42 and Decreased hearing of left ear H91.[address] [address] Dec, Other chest pain R07.89 ; Finger pain, l eft M79.645 ; Chronic GERD K21.9 and Muscle strain of chest wall, initial encounter S29.011A [address] [address] Dec, [address] [address] Dec, Other constipation K59.09 ; Irregular pe riods N92.6 and Absent periods N91.[address] [address] Oct, [address] [address] Oct, Weight gain R63.[address] [address] Oct, Generalized anxiety disorder F41.[address] [address] Sep, [address] [address] Sep, Absent periods N91.2 and Decreased heari ng of left ear H91.[address] [address] Sep, [address] [address] Sep, Pre-op exam Z01.818 and Abscess of chest wall L02.[address] [address] Sep, [address] [address] Sep, Prediabetes R73.09 ; Vitamin D deficienc y E55.9 ; Mixed hyperlipidemia E78.2 and Arthritis of ankle, left M19.[address] [address] Sep, Smoking trying to quit Z72.0 ; Chronic G ERD K21.9 ; Generalized anxiety disorder F41.1 ; Other chest pain R07.89 ; Other constipation K59.09 and Right upper quadrant pain R10.[address] [address] Aug, [address] [address] Aug, Other chronic pain G89.[address] [address] Aug, Mixed hyperlipidemia E78.2 ; Fibromyalgi a M79.7 ; Lumbago of lumbar region with sciatica M54.40 ; History of gestational diabetes Z86.32 ; Prediabetes R73.09 ; Vitamin D deficiency E55.9 ; Weight gain R63.5 ; control counseling Z30.09 ; Pain, dental K08.89 and Flank pain R10.[address] [address] Aug, [address] [address] Jun, Acute left ankle pain M25.[address] [address] Jun, [address] [address] Jun, [address] [address] Jun, Acute left ankle pain M25.[address] [address] Jun, [address] [address] Jun, Acute left ankle pain M25.[address] [place] [address] Jun, Influenza vaccine needed Z23 and Irregul ar periods N92.[address] [facility] [address] [place] [address] May, Mixed hyperlipidemia E78.[address] [facility] [address] [place] [address] May, [facility] [address] [place] [address] May, Chronic GERD K21.[address] [facility] [address] [place] [address] Apr, Weight gain R63.[address] [address] Apr, Chronic GERD K21.9 and Weight gain R63.[address] [address] Mar, Depression with anxiety F41.8 and Chroni c idiopathic constipation K59.[address] [address] Mar, Other chronic pain G89.[address] [address] Mar, Post herpetic neuralgia B02.[address] [address] Mar, Post herpetic neuralgia B02.[address] [address] Mar, [facility] [address] [place] [address] Mar, Other elevated white blood cell (WBC) co unt D72.[address] [address] Mar, Other elevated white blood cell (WBC) co unt D72.828 and Dyslipidemia E78.[address] [address] Feb, [facility] [address] [place] [address] Feb, Vitamin D deficiency E55.9 ; Dyslipidemi a E78.5 ; Other elevated white blood cell (WBC) count D72.828 and Skin tag L91.[address] [address] Feb, [address] [address] Feb, Vitamin D deficiency E55.9 and Dyslipide sourav E78.[address] [address] Feb, [address] [address] Feb, Post herpetic neuralgia B02.29 ; Thyroid disorder screen Z13.29 ; Mixed hyperlipidemia E78.2 ; Chronic GERD K21.9 ; Lumbago of lumbar region with sciatica M54.40 ; Prediabetes R73.03 ; Other fatigue R53.83 ; Vitamin D deficiency E55.9 and Vitamin B 12 deficiency E53.[address] [address] Feb, Reactive airway disease, mild persistent , uncomplicated J45.[address] [address] Feb, Chronic GERD K21.[address] [address] Feb, Mixed hyperlipidemia E78.2 and Other chr onic pain G89.[address] [address] Feb, Lumbago with sciatica, left side M54.42 ; Mixed hyperlipidemia E78.2 and Reactive airway disease, mild persistent, uncomplicated J45.[address] [address] Feb, Chronic GERD K21.[address] [address] Feb, [facility] [address] [place] [address] Feb, [facility] [address] [place] [address] Feb, Post herpetic neuralgia B02.[address] [facility] [address] [place] [address] 16 Feb, 2017 Allergic contact dermatitis due to other agents L23.89 and Post herpetic neuralgia B02.[address] [facility] [address] [place] [address] Feb, Chronic GERD K21.[address] [facility] [address] [place] [address] Feb, Chronic GERD K21.[address] [facility] [address] [place] [address] January, Post herpetic neuralgia B02.[address] [facility] [address] [place] [address] January, Lumbago with sciatica, left side M54.[address] [facility] [address] [place] [address] January, [facility] [address] [place] [address] January, Lumbago of lumbar region with sciatica M 54.[address] [address] January, Other chronic pain G89.29 and Lumbago wi th sciatica, left side M54.[address] [facility] [address] [place] [address] January, Depression with anxiety F41.[address] [address] January, Mixed hyperlipidemia E78.[address] [facility] [address] [place] [address] January, Abscess of left groin L02.[address] [address] Dec, Depression with anxiety F41.[address] [address] Dec, Irregular periods N92.[address] [address] Nov, Left wrist pain M25.532 and Acute left a nkle pain M25.[address] [address] Nov, Post herpetic neuralgia B02.29 and Absce ss of left groin L02.[address] [address] Sep, Irregular periods N92.[address] [address] Sep, Mixed hyperlipidemia E78.2 ; Flank pain R10.9 and Post herpetic neuralgia B02.[address] [address] Aug, Lumbago of lumbar region with sciatica M 54.40 ; Chronic idiopathic constipation K59.09 ; Depression with anxiety F41.8 and Mixed hyperlipidemia E78.[address] [address] Aug, Other chronic pain G89.[address] [address] Aug, Reactive airway disease, mild persistent , uncomplicated J45.[address] [address] Aug, [address] [address] Aug, Cough R05 and Allergic contact dermatiti s due to other agents L23.[address] [address] Aug, [address] [address] Jul, Other chronic pain G89.[address] [place] [address] Jul, Upper respiratory tract infection, unspe cified type J06.9 ; Chronic GERD K21.9 ; Acute left ankle pain M25.572 and Lumbago of lumbar region with sciatica M54.[address] [address] Jun, Other chronic pain G89.[address] [address] Jun, [address] [address] Jun, [address] [address] Jun, Chronic GERD K21.[address] [address] Jun, [address] [address] May, Pain in right wrist M25.531 ; Left wrist pain M25.532 ; Acute left ankle pain M25.572 ; Thoracic spine pain M54.6 ; Lumbago with sciatica, left side M54.42 ; Other chronic pain G89.29 and Dysuria R30.[address] [address] May, Chronic GERD K21.[address] [address] May, Chronic GERD K21.[address] [address] May, [address] [address] May, [address] [address] May, [address] [address] May, [address] [address] May, Mixed hyperlipidemia E78.2 ; Fibromyalgi a M79.7 ; Depression with anxiety F41.8 ; Lumbago of lumbar region with sciatica M54.40 ; Encounter to establish care Z76.89 ; Chronic GERD K21.9 ; History of gestational diabetes Z86.32 ; Chronic idiopathic constipation K59.09 ; Thyroid disorder screen Z13.29 and Need for influenza vaccination Z23 [facility] [address] [place] [address] Apr, Gestational diabetes O24.419 [facility] [address] [facility] [facility] [address] [place] [address] Feb, Gestational diabetes O24.419 IMMUNIZATIONS No Known Immunizations SOCIAL HISTORY Never Assessed REASON FOR VISIT Test PLAN OF CARE VITAL SIGNS MEDICATIONS Unknown [...]
--- OUTSIDE RECORDS SUMMARY | 2020-03-15 21:24 | XMS REPORT ---
Author Author Solange Sultana [facility] Address [address] [place], [place] [id number] Care Team Providers Care Slide Machine Tender Name Role Phone Felisha Sultana Unavailable PROBLEMS Type Condition ICD9-CM Code [id number] Code Onset Dates Condition S tatus SNOMED Code Problem Prediabetes R73.09 Active 42105332 2 Problem Chronic GERD K21.9 Active 5250406 09 Problem Mixed hyperlipidemia E78.2 Active 092350684 Problem Fibromyalgia M79.7 Active 1388762 05 Problem Depression with anxiety F41.8 Active 232438077 Problem History of gestational diabetes Z86.32 Active 536367211 Problem Chronic idiopathic constipation K59.09 Active 68499264 Problem Lumbago of lumbar region with sciatica M54.40 Active 87306802 Problem Acute left ankle pain M25.572 Active 81412457653147 Problem Generalized anxiety disorder F41.1 A ctive 31652593 Problem Thoracic spine pain M54.6 Active 588168956 Problem Absent periods N91.2 Active 61651 001 Problem Left wrist pain M25.532 Active 5660 8008 Problem Decreased hearing of left ear H91.92 Active 70664463 Problem Elevated blood pressure reading R03.0 Active 69400809 Problem Left hand pain M79.642 Active 93156 6327710529 Problem Excessive daytime sleepiness G47.19 A ctive 102900033935 Problem Menstrual cramps N94.6 Active 431 342771 Problem Pain in right wrist M25.531 Active 39392342 Problem Lumbago with sciatica, left side M54.42 Active 671427404 Problem Other chronic pain G89.29 Active 8 7057716 Problem Cigarette nicotine dependence, uncomplicated F17.2 10 Active 87299878 Problem Cervical pain M54.2 Active 635771 05 Problem Rosacea L71.9 Active 760703299 Problem Irritable bowel syndrome with diarrhea K58.0 Active 714885031 Problem Post herpetic neuralgia B02.29 Active 8227165 Problem Gestational diabetes O24.419 Active 24229706 Problem Irregular periods N92.6 Active 80 925533 Problem Plantar fasciitis M72.2 Active 20 2193475 Problem Reactive airway disease, mild persistent, uncomplicated J45.30 Active 427100532565 Problem Prediabetes R73.03 Active 25554681 2 Problem Other elevated white blood cell (WBC) count D72.82 8 Active 439121801 Problem Other fatigue R53.83 Active 130781 01 Problem Vitamin D deficiency E55.9 Active 98226761 ALLERGIES No Information ENCOUNTERS Encounter Location Date Diagnosis [address] [address] Aug, [address] [address] Jul, Abscess L02.[address] [address] Jul, Mixed hyperlipidemia E78.2 ; Chronic ABDOUL D K21.9 and Generalized anxiety disorder F41.[address] [address] Jul, Well woman exam with routine gynecologic al exam Z01.419 ; Menstrual cramps N94.6 ; Acute left ankle pain M25.572 ; Snoring R06.83 and Excessive daytime sleepiness G47.[address] [address] Jun, Shingles B02.[address] [address] Jun, Pruritic dermatitis L29.9 and Rosacea L7 1.[address] [address] Jun, [address] [address] Jun, [address] [address] Jun, [address] [address] Jun, Butterfly rash R21 ; Influenza vaccine n eeded Z23 ; Prediabetes R73.09 ; Mixed hyperlipidemia E78.2 and Vitamin D deficiency E55.[address] [facility] [address] [place] [place] [address] Apr, Left ankle swelling M25.472 [facility] [address] [place] [address] Apr, [facility] [address] [place] [address] Apr, [facility] [address] [facility] [place] [address] Mar, Edema of left foot R60.[address] [facility] [address] [place] [address] Mar, Irritable bowel syndrome with diarrhea K 58.[address] [facility] [address] [place] [address] Mar, [facility] [address] [place] [address] Mar, [facility] [address] [place] [address] Mar, [facility] [address] [place] [address] Feb, Irritable bowel syndrome with diarrhea K 58.[address] [facility] [address] [place] [address] Feb, [facility] [address] [place] [address] Feb, Irritable bowel syndrome with diarrhea K 58.[address] [facility] [address] [place] [address] Feb, control counseling Z30.09 ; Lumbag o with sciatica, left side M54.42 and Chronic GERD K21.[address] [facility] [address] [place] [address] Feb, [facility] [address] [place] [address] Feb, [facility] [address] [place] [address] Feb, [address] [address] Feb, Diarrhea, unspecified type R19.[address] [address] Feb, Abnormal glucose R73.[address] [address] Feb, Abnormal glucose R73.[address] [address] Feb, Reactive airway disease, mild persistent , uncomplicated J45.[address] [address] Feb, Lumbago with sciatica, left side M54.42 ; Cigarette nicotine dependence, uncomplicated F17.210 ; Diarrhea, unspecified type R19.7 and Abnormal glucose R73.[address] [address] January, [address] [address] January, [address] [address] January, [address] [address] January, [address] [address] January, Muscle strain of chest wall, initial enc ounter S29.011A ; Physical exam Z00.00 ; Need for hepatitis vaccination Z23 and Abscess L02.[address] [address] Dec, Left hand pain M79.642 ; Thoracic spine pain M54.6 ; Cervical pain M54.2 and Elevated blood pressure reading R03.[address] [address] Dec, Lumbago with sciatica, left side M54.42 and Decreased hearing of left ear H91.[address] [facility] [address] [place] [address] Dec, Other chest pain R07.89 ; Finger pain, l eft M79.645 ; Chronic GERD K21.9 and Muscle strain of chest wall, initial encounter S29.011A [address] [address] Dec, [address] [address] Dec, Other constipation K59.09 ; Irregular pe riods N92.6 and Absent periods N91.[address] [address] Oct, [address] [address] Oct, Weight gain R63.[address] [address] Oct, Generalized anxiety disorder F41.[address] [address] Sep, [address] [address] Sep, Absent periods N91.2 and Decreased heari ng of left ear H91.[address] [address] Sep, [address] [address] Sep, Pre-op exam Z01.818 and Abscess of chest wall L02.[address] [address] Sep, [address] [address] Sep, Prediabetes R73.09 ; Vitamin D deficienc y E55.9 ; Mixed hyperlipidemia E78.2 and Arthritis of ankle, left M19.[address] [address] Sep, Smoking trying to quit Z72.0 ; Chronic G ERD K21.9 ; Generalized anxiety disorder F41.1 ; Other chest pain R07.89 ; Other constipation K59.09 and Right upper quadrant pain R10.[address] [facility] [address] [place] [address] Aug, [facility] [address] [place] [address] Aug, Other chronic pain G89.[address] [facility] [address] [place] [address] Aug, Mixed hyperlipidemia E78.2 ; Fibromyalgi a M79.7 ; Lumbago of lumbar region with sciatica M54.40 ; History of gestational diabetes Z86.32 ; Prediabetes R73.09 ; Vitamin D deficiency E55.9 ; Weight gain R63.5 ; control counseling Z30.09 ; Pain, dental K08.89 and Flank pain R10.[address] [facility] [address] [place] [address] Aug, [facility] [address] [place] [address] Jun, Acute left ankle pain M25.[address] [address] Jun, [facility] [address] [place] [address] Jun, [facility] [address] [place] [address] Jun, Acute left ankle pain M25.[address] [address] Jun, [facility] [address] [place] [address] Jun, Acute left ankle pain M25.[address] [address] Jun, Influenza vaccine needed Z23 and Irregul ar periods N92.[address] [facility] [address] [place] [address] May, Mixed hyperlipidemia E78.[address] [facility] [address] [place] [address] May, [address] [address] May, Chronic GERD K21.[address] [address] Apr, Weight gain R63.[address] [address] Apr, Chronic GERD K21.9 and Weight gain R63.[address] [address] Mar, Depression with anxiety F41.8 and Chroni c idiopathic constipation K59.[address] [address] Mar, Other chronic pain G89.[address] [address] Mar, Post herpetic neuralgia B02.[address] [address] Mar, Post herpetic neuralgia B02.[address] [address] Mar, [address] [address] Mar, Other elevated white blood cell (WBC) co unt D72.[address] [address] Mar, Other elevated white blood cell (WBC) co unt D72.828 and Dyslipidemia E78.[address] [address] Feb, [address] [address] Feb, Vitamin D deficiency E55.9 ; Dyslipidemi a E78.5 ; Other elevated white blood cell (WBC) count D72.828 and Skin tag L91.[address] [address] Feb, [address] [address] Feb, Vitamin D deficiency E55.9 and Dyslipide sourav E78.[address] [address] Feb, [address] [address] Feb, Post herpetic neuralgia B02.29 ; Thyroid disorder screen Z13.29 ; Mixed hyperlipidemia E78.2 ; Chronic GERD K21.9 ; Lumbago of lumbar region with sciatica M54.40 ; Prediabetes R73.03 ; Other fatigue R53.83 ; Vitamin D deficiency E55.9 and Vitamin B 12 deficiency E53.[address] [address] Feb, Reactive airway disease, mild persistent , uncomplicated J45.[address] [address] Feb, Chronic GERD K21.[address] [address] Feb, Mixed hyperlipidemia E78.2 and Other chr onic pain G89.[address] [address] Feb, Lumbago with sciatica, left side M54.42 ; Mixed hyperlipidemia E78.2 and Reactive airway disease, mild persistent, uncomplicated J45.[address] [address] Feb, Chronic GERD K21.[address] [address] Feb, [address] [address] Feb, [address] [address] Feb, Post herpetic neuralgia B02.29 [facility] [address] [place] [address] 16 Feb, 2017 Allergic contact dermatitis due to other agents L23.89 and Post herpetic neuralgia B02.29 [facility] [address] [place] [address] 16 Feb, 2017 Chronic GERD K21.9 [facility] [address] [place] [address] Feb, Chronic GERD K21.[address] [facility] [address] [place] [address] January, Post herpetic neuralgia B02.[address] [facility] [address] [place] [address] January, Lumbago with sciatica, left side M54.[address] [facility] [address] [place] [address] January, [facility] [address] [place] [address] January, Lumbago of lumbar region with sciatica M 54.[address] [facility] [address] [place] [address] January, Other chronic pain G89.29 and Lumbago wi th sciatica, left side M54.[address] [facility] [address] [place] [address] January, Depression with anxiety F41.[address] [facility] [address] [place] [address] January, Mixed hyperlipidemia E78.[address] [facility] [address] [place] [address] January, Abscess of left groin L02.[address] [facility] [address] [place] [address] Dec, Depression with anxiety F41.[address] [facility] [address] [place] [address] Dec, Irregular periods N92.6 [facility] [address] [address] Nov, Left wrist pain M25.532 and Acute left a nkle pain M25.[address] [address] Nov, Post herpetic neuralgia B02.29 and Absce ss of left groin L02.[address] [address] Sep, Irregular periods N92.[address] [address] Sep, Mixed hyperlipidemia E78.2 ; Flank pain R10.9 and Post herpetic neuralgia B02.[address] [address] Aug, Lumbago of lumbar region with sciatica M 54.40 ; Chronic idiopathic constipation K59.09 ; Depression with anxiety F41.8 and Mixed hyperlipidemia E78.[address] [address] Aug, Other chronic pain G89.[address] [address] Aug, Reactive airway disease, mild persistent , uncomplicated J45.[address] [address] Aug, [address] [address] Aug, Cough R05 and Allergic contact dermatiti s due to other agents L23.[address] [address] Aug, [address] [address] Jul, Other chronic pain G89.[address] [address] 09 Jul, 2016 Upper respiratory tract infection, unspe cified type J06.9 ; Chronic GERD K21.9 ; Acute left ankle pain M25.572 and Lumbago of lumbar region with sciatica M54.[address] [facility] [address] [place] [address] Jun, Other chronic pain G89.[address] [address] Jun, [address] [address] Jun, [address] [address] Jun, Chronic GERD K21.[address] [address] Jun, [address] [address] 30 May, 2016 Pain in right wrist M25.531 ; Left wrist pain M25.532 ; Acute left ankle pain M25.572 ; Thoracic spine pain M54.6 ; Lumbago with sciatica, left side M54.42 ; Other chronic pain G89.29 and Dysuria R30.[address] [address] May, Chronic GERD K21.[address] [address] 23 May, 2016 Chronic GERD K21.[address] [address] May, [address] [address] May, [address] [address] 16 May, [address] [address] 16 May, [address] [address] 16 May, 2016 Mixed hyperlipidemia E78.2 ; Fibromyalgi a M79.7 ; Depression with anxiety F41.8 ; Lumbago of lumbar region with sciatica M54.40 ; Encounter to establish care Z76.89 ; Chronic GERD K21.9 ; History of gestational diabetes Z86.32 ; Chronic idiopathic constipation K59.09 ; Thyroid disorder screen Z13.29 and Need for influenza vaccination Z23 [facility] [address] [place] [address] Apr, Gestational diabetes O24.419 [facility] [address] [place], [place] [address] Feb, Gestational diabetes O24.419 IMMUNIZATIONS No Known Immunizations SOCIAL HISTORY Never Assessed REASON FOR VISIT need abx PLAN OF CARE VITAL SIGNS MEDICATIONS Medication Instructions Dosage Frequency Start Date End Date Duration S tatus Sertraline HCl 100 MG Orally Once a day 2 tablet 24h 30 days Active MorphaBond ER 15 MG Orally every 12 hrs 1 tablet 12h Aug, 30 days Not-Taking Colace 100 MG Orally Once a day 1 capsule as needed 24h 30 Active Zoloft 100 MG Orally Once a day 2 tablet 24h 30 days Active MedroxyPROGESTERone Acetate 10 MG Orally Once a day 1 tablet with f ood 24h Sep, Not-Taking Pravastatin Sodium 20 MG TAKE 1 TABLET BY MOUTH EVERY NIGHT AT BEDTIME 90 Active Ventolin HFA 108 (90 Base) MCG/ACT Inhalation every 4 hrs 2 puffs a s needed 4h Aug, 30 days Active Fiber Not-Taking Metronidazole 1 % Externally Once a day 1 application to affected a stacey 24h Jun, 14 days Active Multivitamin Adult - Act nancy Gabapentin 600 MG Orally five times daily 1 tablet Active Bactrim DS 800-160 MG Orally Twice a day 1 tablet 12h Jul, 2 018 Jul, 10 day(s) Active Tramadol HCl 50 MG Orally Three times daily take 1 tablet b y mouth three times daily 30 Active Benefiber - Orally Two times daily 2 May, 30 days Not-Taking Cleocin-T 1 % Externally Apply a thin film to affected area twice daily 1 application to affected area Jun, Active Nortriptyline HCl 25 MG Orally QHS 1 capsule 30 Active Pantoprazole Sodium 40 MG Orally BID 1 tablet 12h Jul, 30 days Active Cyclobenzaprine HCl 10 MG TAKE 1 TABLET BY MOUTH THREE (3) T IMES DAILY 10 Active Mobic 15 MG Orally Once a day 1 tablet 24h Jul, 90 d ays Active Victoza 18 MG/3ML Subcutaneous inject 1.8 Once daily as directed Feb, Not-Taking PredniSONE 10 MG Orally 6-5-4-3-2-1 as directed Jun, 6 days Active RESULTS No Results PROCEDURES No [...]
--- OUTSIDE RECORDS SUMMARY | 2020-03-15 21:25 | XMS REPORT ---
Author Author Solange Sultana [facility] Address [address], [place] [id number] Care Team Providers Care Closing Supervisor Name Role Phone Felisha Sultana Unavailable PROBLEMS Type Condition ICD9-CM Code GTI21-IG Code Onset Dates Condition S tatus SNOMED Code Problem History of gestational diabetes Z86.32 Active 765741778 Problem Gestational diabetes O24.419 Active 78604151 Problem Prediabetes R73.09 Active 26192374 2 Problem Chronic GERD K21.9 Active 1635865 09 Problem Fibromyalgia M79.7 Active 6861822 05 Problem Mixed hyperlipidemia E78.2 Active 361153922 Problem Depression with anxiety F41.8 Active 036136748 Problem Lumbago of lumbar region with sciatica M54.40 Active 13947275 Problem Chronic idiopathic constipation K59.09 Active 63014576 Problem Other elevated white blood cell (WBC) count D72.82 8 Active 973612554 Problem Thoracic spine pain M54.6 Active 108485656 Problem Generalized anxiety disorder F41.1 A ctive 96631707 Problem Acute left ankle pain M25.572 Active 29480072881061 Problem Absent periods N91.2 Active 00649 001 Problem Left hand pain M79.642 Active 69189 6860835494 Problem Decreased hearing of left ear H91.92 Active 22269983 Problem Menstrual cramps N94.6 Active 431 935637 Problem Rosacea L71.9 Active 076803770 Problem Pain in right wrist M25.531 Active 68804285 Problem Lumbago with sciatica, left side M54.42 Active 519687461 Problem Other chronic pain G89.29 Active 8 0860561 Problem Elevated blood pressure reading R03.0 Active 47290726 Problem Cervical pain M54.2 Active 718706 05 Problem Irritable bowel syndrome with diarrhea K58.0 Active 346151048 Problem Cigarette nicotine dependence, uncomplicated F17.2 10 Active 26443244 Problem Reactive airway disease, mild persistent, uncomplicated J45.30 Active 991502115998 Problem Post herpetic neuralgia B02.29 Active 4160981 Problem Left wrist pain M25.532 Active 5660 8008 Problem Plantar fasciitis M72.2 Active 20 8759232 Problem Vitamin D deficiency E55.9 Active 52433710 Problem Prediabetes R73.03 Active 84520999 2 Problem Irregular periods N92.6 Active 80 720985 Problem Other fatigue R53.83 Active 818654 01 ALLERGIES No Information ENCOUNTERS Encounter Location Date Diagnosis [address] [address] Aug, [address] [address] Jul, Mixed hyperlipidemia E78.2 ; Chronic ABDOUL D K21.9 and Generalized anxiety disorder F41.[address] [address] Jul, Well woman exam with routine gynecologic al exam Z01.419 ; Menstrual cramps N94.6 ; Acute left ankle pain M25.572 and Snoring R06.[address] [address] Jun, Shingles B02.[address] [address] Jun, Pruritic dermatitis L29.9 and Rosacea L7 1.[address] [address] Jun, [address] [address] Jun, [address] [address] Jun, [address] [address] Jun, Butterfly rash R21 ; Influenza vaccine n eeded Z23 ; Prediabetes R73.09 ; Mixed hyperlipidemia E78.2 and Vitamin D deficiency E55.[address] [address] Apr, Left ankle swelling M25.472 [facility] [address] [place] [address] Apr, [facility] [address] [place] [address] Apr, [facility] [address] [place] [address] Mar, Edema of left foot R60.0 [facility] [address] [place] [address] Mar, Irritable bowel syndrome with diarrhea K 58.0 [facility] [address] [place] [address] Mar, [facility] [address] [place] [address] Mar, [facility] [address] [place] [address] Mar, [facility] [address] [place] [address] Feb, Irritable bowel syndrome with diarrhea K 58.0 [facility] [address] [place] [address] Feb, [facility] [address] [place] [address] Feb, Irritable bowel syndrome with diarrhea K 58.0 [facility] [address] [place] [address] Feb, control counseling Z30.09 ; Lumbag o with sciatica, left side M54.42 and Chronic GERD K21.9 [facility] [address] [place] [address] Feb, [facility] [address] [place] [address] Feb, [facility] [address] [place] [address] Feb, [facility] [address] [place] [address] Feb, Diarrhea, unspecified type R19.[address] [address] Feb, Abnormal glucose R73.[address] [address] Feb, Abnormal glucose R73.[address] [address] Feb, Reactive airway disease, mild persistent , uncomplicated J45.[address] [address] Feb, Lumbago with sciatica, left side M54.42 ; Cigarette nicotine dependence, uncomplicated F17.210 ; Diarrhea, unspecified type R19.7 and Abnormal glucose R73.[address] [address] January, [address] [address] January, [address] [address] January, [address] [address] January, [address] [address] January, Muscle strain of chest wall, initial enc ounter S29.011A ; Physical exam Z00.00 ; Need for hepatitis vaccination Z23 and Abscess L02.[address] [address] Dec, Left hand pain M79.642 ; Thoracic spine pain M54.6 ; Cervical pain M54.2 and Elevated blood pressure reading R03.[address] [address] Dec, Lumbago with sciatica, left side M54.42 and Decreased hearing of left ear H91.[address] [address] Dec, Other chest pain R07.89 ; Finger pain, l eft M79.645 ; Chronic GERD K21.9 and Muscle strain of chest wall, initial encounter S29.011A [address] [address] Dec, [address] [address] Dec, Other constipation K59.09 ; Irregular pe riods N92.6 and Absent periods N91.[address] [address] Oct, [address] [address] Oct, Weight gain R63.[address] [address] Oct, Generalized anxiety disorder F41.[address] [address] Sep, [address] [address] Sep, Absent periods N91.2 and Decreased heari ng of left ear H91.[address] [address] Sep, [address] [address] Sep, Pre-op exam Z01.818 and Abscess of chest wall L02.[address] [address] Sep, [address] [address] Sep, Prediabetes R73.09 ; Vitamin D deficienc y E55.9 ; Mixed hyperlipidemia E78.2 and Arthritis of ankle, left M19.[address] [address] Sep, Smoking trying to quit Z72.0 ; Chronic G ERD K21.9 ; Generalized anxiety disorder F41.1 ; Other chest pain R07.89 ; Other constipation K59.09 and Right upper quadrant pain R10.11 [address] [place] [address] Aug, [facility] [address] [place] [address] Aug, Other chronic pain G89.[address] [facility] [address] [place] [address] 14 Aug, 2017 Mixed hyperlipidemia E78.2 ; Fibromyalgi a M79.7 ; Lumbago of lumbar region with sciatica M54.40 ; History of gestational diabetes Z86.32 ; Prediabetes R73.09 ; Vitamin D deficiency E55.9 ; Weight gain R63.5 ; control counseling Z30.09 ; Pain, dental K08.89 and Flank pain R10.[address] [facility] [address] [place] [address] Aug, [facility] [address] [place] [address] Jun, Acute left ankle pain M25.[address] [facility] [address] [place] [address] Jun, [facility] [address] [place] [address] Jun, [facility] [address] [place] [address] Jun, Acute left ankle pain M25.[address] [address] Jun, [facility] [address] [place] [address] Jun, Acute left ankle pain M25.[address] [facility] [address] [place] [address] Jun, Influenza vaccine needed Z23 and Irregul ar periods N92.[address] [facility] [address] [place] [address] May, Mixed hyperlipidemia E78.[address] [facility] [address] [place] [address] May, [facility] [address] [place] [address] May, Chronic GERD K21.[address] [facility] [address] [place] [address] Apr, Weight gain R63.[address] [facility] [address] [place] [address] Apr, Chronic GERD K21.9 and Weight gain R63.[address] [facility] [address] [place] [address] Mar, Depression with anxiety F41.8 and Chroni c idiopathic constipation K59.[address] [facility] [address] [place] [address] Mar, Other chronic pain G89.[address] [address] Mar, Post herpetic neuralgia B02.[address] [address] Mar, Post herpetic neuralgia B02.[address] [address] Mar, [address] [address] Mar, Other elevated white blood cell (WBC) co unt D72.[address] [address] Mar, Other elevated white blood cell (WBC) co unt D72.828 and Dyslipidemia E78.[address] [facility] [address] [place] [address] Feb, [facility] [address] [place] [address] Feb, Vitamin D deficiency E55.9 ; Dyslipidemi a E78.5 ; Other elevated white blood cell (WBC) count D72.828 and Skin tag L91.[address] [facility] [address] [place] [address] Feb, [facility] [address] [place] [address] Feb, Vitamin D deficiency E55.9 and Dyslipide sourav E78.[address] [address] Feb, [address] [address] Feb, Post herpetic neuralgia B02.29 ; Thyroid disorder screen Z13.29 ; Mixed hyperlipidemia E78.2 ; Chronic GERD K21.9 ; Lumbago of lumbar region with sciatica M54.40 ; Prediabetes R73.03 ; Other fatigue R53.83 ; Vitamin D deficiency E55.9 and Vitamin B 12 deficiency E53.[address] [address] Feb, Reactive airway disease, mild persistent , uncomplicated J45.[address] [address] Feb, Chronic GERD K21.[address] [address] Feb, Mixed hyperlipidemia E78.2 and Other chr onic pain G89.[address] [address] Feb, Lumbago with sciatica, left side M54.42 ; Mixed hyperlipidemia E78.2 and Reactive airway disease, mild persistent, uncomplicated J45.[address] [address] Feb, Chronic GERD K21.[address] [address] Feb, [address] [address] Feb, [address] [address] Feb, Post herpetic neuralgia B02.[address] [address] Feb, Allergic contact dermatitis due to other agents L23.89 and Post herpetic neuralgia B02.[address] [facility] [address] [place] [address] 16 Feb, 2017 Chronic GERD K21.[address] [facility] [address] [place] [address] Feb, Chronic GERD K21.[address] [facility] [address] [place] [address] January, Post herpetic neuralgia B02.[address] [facility] [address] [place] [address] January, Lumbago with sciatica, left side M54.[address] [facility] [address] [place] [address] January, [facility] [address] [place] [address] January, Lumbago of lumbar region with sciatica M 54.[address] [facility] [address] [place] [address] January, Other chronic pain G89.29 and Lumbago wi th sciatica, left side M54.[address] [facility] [address] [place] [address] January, Depression with anxiety F41.[address] [facility] [address] [place] [address] January, Mixed hyperlipidemia E78.[address] [facility] [address] [place] [address] January, Abscess of left groin L02.[address] [facility] [address] [place] [address] Dec, Depression with anxiety F41.[address] [facility] [address] [place] [address] Dec, Irregular periods N92.[address] [facility] [address] [place] [address] Nov, Left wrist pain M25.532 and Acute left a nkle pain M25.[address] [facility] [address] [place] [address] Nov, Post herpetic neuralgia B02.29 and Absce ss of left groin L02.[address] [address] Sep, Irregular periods N92.[address] [address] Sep, Mixed hyperlipidemia E78.2 ; Flank pain R10.9 and Post herpetic neuralgia B02.[address] [address] Aug, Lumbago of lumbar region with sciatica M 54.40 ; Chronic idiopathic constipation K59.09 ; Depression with anxiety F41.8 and Mixed hyperlipidemia E78.[address] [address] Aug, Other chronic pain G89.[address] [address] Aug, Reactive airway disease, mild persistent , uncomplicated J45.[address] [address] Aug, [address] [address] Aug, Cough R05 and Allergic contact dermatiti s due to other agents L23.[address] [address] Aug, [address] [address] Jul, Other chronic pain G89.[address] [address] 09 Jul, 2016 Upper respiratory tract infection, unspe cified type J06.9 ; Chronic GERD K21.9 ; Acute left ankle pain M25.572 and Lumbago of lumbar region with sciatica M54.[address] [address] Jun, Other chronic pain G89.[address] [address] Jun, [address] [address] Jun, [address] [address] Jun, Chronic GERD K21.[address] [address] Jun, [address] [address] 30 May, 2016 Pain in right wrist M25.531 ; Left wrist pain M25.532 ; Acute left ankle pain M25.572 ; Thoracic spine pain M54.6 ; Lumbago with sciatica, left side M54.42 ; Other chronic pain G89.29 and Dysuria R30.[address] [address] May, Chronic GERD K21.[address] [address] May, Chronic GERD K21.[address] [address] May, [address] [address] May, [address] [address] May, [address] [address] 16 May, [address] [address] 16 May, 2016 Mixed hyperlipidemia E78.2 ; Fibromyalgi a M79.7 ; Depression with anxiety F41.8 ; Lumbago of lumbar region with sciatica M54.40 ; Encounter to establish care Z76.89 ; Chronic GERD K21.9 ; History of gestational diabetes Z86.32 ; Chronic idiopathic constipation K59.09 ; Thyroid disorder screen Z13.29 and Need for influenza vaccination Z23 [facility] [address] [place], [place] [address] Apr, Gestational diabetes O24.419 [facility] [address] [place], [place] [address] Feb, Gestational diabetes O24.419 IMMUNIZATIONS No Known Immunizations SOCIAL HISTORY Never Assessed REASON FOR VISIT PLAN OF CARE VITAL SIGNS MEDICATIONS Medication Instructions Dosage Frequency Start Date End Date Duration S serena Victoza 18 MG/3ML Subcutaneous inject 1.8 Once daily as directed Feb, Not-Taking Multivitamin Adult - Act nancy Sertraline HCl 100 MG Orally Once a day 2 tablet 24h 30 days Active Cleocin-T 1 % Externally Apply a thin film to affected area twice daily 1 application to affected area Jun, Active MedroxyPROGESTERone Acetate 10 MG Orally Once a day 1 tablet with f ood 24h Sep, Not-Taking Benefiber - Orally Two times daily 2 May, 30 days Not-Taking Gabapentin 600 MG Orally five times daily 1 tablet Active Nortriptyline HCl 25 MG Orally QHS 1 capsule 30 Active Zoloft 100 MG Orally Once a day 2 tablet 24h 30 days Active MorphaBond ER 15 MG Orally every 12 hrs 1 tablet 12h Aug, 30 days Not-Taking Mobic 15 MG Orally Once a day 1 tablet 24h Jul, 90 d ays Active Pantoprazole Sodium 40 MG Orally BID 1 tablet 12h Jul, 30 days Active Metronidazole 1 % Externally Once a day 1 application to affected a stacey 24h Jun, 14 days Active Pravastatin Sodium 20 MG TAKE 1 TABLET BY MOUTH EVERY NIGHT AT BEDTIME 90 Active PredniSONE 10 MG Orally 6-5-4-3-2-1 as directed Jun, 6 days Active Fiber Not-Taking Tramadol HCl 50 MG Orally Three times daily take 1 tablet b y mouth three times daily 30 Active Colace [...] History Fused L ankle 09/2017 Hospitalization History [facility]- Hyperglycemia and February 2016 Hospitalization History Ankle surgery 09/2017
--- OUTSIDE RECORDS SUMMARY | 2020-03-15 21:25 | XMS REPORT ---
Author Author Solange Sultana [facility] Address [address], [place] [id number] Care Team Providers Care Cleat Feeder Name Role Phone Felisha Sultana Unavailable PROBLEMS Type Condition ICD9-CM Code BGR73-OG Code Onset Dates Condition S tatus SNOMED Code Problem Gestational diabetes O24.419 Active 75251942 Problem Chronic GERD K21.9 Active 3180786 09 Problem History of gestational diabetes Z86.32 Active 657109838 Problem Prediabetes R73.09 Active 83045048 2 Problem Fibromyalgia M79.7 Active 1183237 05 Problem Mixed hyperlipidemia E78.2 Active 508848594 Problem Depression with anxiety F41.8 Active 373542964 Problem Lumbago of lumbar region with sciatica M54.40 Active 52271271 Problem Prediabetes R73.03 Active 30383856 2 Problem Chronic idiopathic constipation K59.09 Active 26569162 Problem Other elevated white blood cell (WBC) count D72.82 8 Active 001016111 Problem Thoracic spine pain M54.6 Active 961740412 Problem Generalized anxiety disorder F41.1 A ctive 79903049 Problem Decreased hearing of left ear H91.92 Active 62167106 Problem Absent periods N91.2 Active 43927 001 Problem Rosacea L71.9 Active 212633288 Problem Irritable bowel syndrome with diarrhea K58.0 Active 792167418 Problem Lumbago with sciatica, left side M54.42 Active 905488775 Problem Other chronic pain G89.29 Active 8 2861256 Problem Acute left ankle pain M25.572 Active 28783710225018 Problem Cervical pain M54.2 Active 226216 05 Problem Left hand pain M79.642 Active 37496 1328232628 Problem Cigarette nicotine dependence, uncomplicated F17.2 10 Active 82045119 Problem Elevated blood pressure reading R03.0 Active 53318420 Problem Plantar fasciitis M72.2 Active 20 5368910 Problem Reactive airway disease, mild persistent, uncomplicated J45.30 Active 603140094418 Problem Pain in right wrist M25.531 Active 16457046 Problem Left wrist pain M25.532 Active 5660 8008 Problem Other fatigue R53.83 Active 221550 01 Problem Vitamin D deficiency E55.9 Active 32966994 Problem Post herpetic neuralgia B02.29 Active 4839757 Problem Irregular periods N92.6 Active 80 937447 ALLERGIES No Information ENCOUNTERS Encounter Location Date Diagnosis [facility] [address] [place] [address] Aug, [facility] [address] [place] [address] Jun, Pruritic dermatitis L29.9 and Rosacea L7 [address] [address] Jun, [address] [address] Jun, [address] [address] Jun, [address] [address] Jun, Butterfly rash R21 ; Influenza vaccine n eeded Z23 ; Prediabetes R73.09 ; Mixed hyperlipidemia E78.2 and Vitamin D deficiency E55.[address] [address] Apr, Left ankle swelling M25.[address] [address] Apr, [address] [address] Apr, [address] [address] Mar, Edema of left foot R60.[address] [address] Mar, Irritable bowel syndrome with diarrhea K 58.[address] [address] Mar, [facility] [address] [place] [address] Mar, [facility] [address] [place] [address] Mar, [facility] [address] [place] [address] Feb, Irritable bowel syndrome with diarrhea K 58.0 [facility] [address] [place] [address], [place] [address] Feb, [facility] [address] [place] [address] Feb, Irritable bowel syndrome with diarrhea K 58.0 [facility] [address] [place] [address], [place] [address] Feb, control counseling Z30.09 ; Lumbag o with sciatica, left side M54.42 and Chronic GERD K21.[address] [address] Feb, [facility] [address] [place] [address] Feb, [facility] [address] [address] Feb, [facility] [address] [place] [address] Feb, Diarrhea, unspecified type R19.[address] [address] Feb, Abnormal glucose R73.09 [facility] [address] [place] [address] Feb, Abnormal glucose R73.[address] [address] 05 Feb, 2018 Reactive airway disease, mild persistent , uncomplicated J45.30 [facility] [address] [place] [address] 04 Feb, 2018 Lumbago with sciatica, left side M54.42 ; Cigarette nicotine dependence, uncomplicated F17.210 ; Diarrhea, unspecified type R19.7 and Abnormal glucose R73.[address] [address] January, [address] [address] January, [address] [address] January, [address] [address] January, [address] [address] January, Muscle strain of chest wall, initial enc ounter S29.011A ; Physical exam Z00.00 ; Need for hepatitis vaccination Z23 and Abscess L02.[address] [address] Dec, Left hand pain M79.642 ; Thoracic spine pain M54.6 ; Cervical pain M54.2 and Elevated blood pressure reading R03.[address] [address] Dec, Lumbago with sciatica, left side M54.42 and Decreased hearing of left ear H91.[address] [address] Dec, Other chest pain R07.89 ; Finger pain, l eft M79.645 ; Chronic GERD K21.9 and Muscle strain of chest wall, initial encounter S29.011A [address] [address] Dec, [address] [address] Dec, Other constipation K59.09 ; Irregular pe riods N92.6 and Absent periods N91.[address] [address] Oct, [address] [address] Oct, Weight gain R63.5 [facility] [address] Oct, Generalized anxiety disorder F41.[address] [address] Sep, [address] [address] Sep, Absent periods N91.2 and Decreased heari ng of left ear H91.[address] [address] Sep, [address] [address] Sep, Pre-op exam Z01.818 and Abscess of chest wall L02.[address] [address] Sep, [address] [address] Sep, Prediabetes R73.09 ; Vitamin D deficienc y E55.9 ; Mixed hyperlipidemia E78.2 and Arthritis of ankle, left M19.[address] [address] Sep, Smoking trying to quit Z72.0 ; Chronic G ERD K21.9 ; Generalized anxiety disorder F41.1 ; Other chest pain R07.89 ; Other constipation K59.09 and Right upper quadrant pain R10.[address] [address] Aug, [address] [address] Aug, Other chronic pain G89.[address] [address] Aug, Mixed hyperlipidemia E78.2 ; Fibromyalgi a M79.7 ; Lumbago of lumbar region with sciatica M54.40 ; History of gestational diabetes Z86.32 ; Prediabetes R73.09 ; Vitamin D deficiency E55.9 ; Weight gain R63.5 ; control counseling Z30.09 ; Pain, dental K08.89 and Flank pain R10.9 [facility] [address] [place] [address] Aug, [facility] [address] [place] [address] Jun, Acute left ankle pain M25.572 [facility] [address] [place] [address] Jun, [facility] [address] [place] [address] Jun, [facility] [address] [place] [address] Jun, Acute left ankle pain M25.572 [facility] [address] [place] [address] Jun, [facility] [address] [place] [address] Jun, Acute left ankle pain M25.572 [facility] [address] [place] [address] Jun, Influenza vaccine needed Z23 and Irregul ar periods N92.6 [facility] [address] [place] [address] May, Mixed hyperlipidemia E78.2 [facility] [address] [place] [address] May, [facility] [address] [place] [address] May, Chronic GERD K21.9 [facility] [address] [place] [address] Apr, Weight gain R63.5 [facility] [address] [place] [address] Apr, Chronic GERD K21.9 and Weight gain R63.5 [facility] [address] [place] [address] Mar, Depression with anxiety F41.8 and Chroni c idiopathic constipation K59.09 [facility] [address] [place] [address] Mar, Other chronic pain G89.[address] [address] Mar, Post herpetic neuralgia B02.[address] [address] Mar, Post herpetic neuralgia B02.[address] [address] Mar, [address] [address] Mar, Other elevated white blood cell (WBC) co unt D72.[address] [address] Mar, Other elevated white blood cell (WBC) co unt D72.828 and Dyslipidemia E78.[address] [address] Feb, [address] [address] Feb, Vitamin D deficiency E55.9 ; Dyslipidemi a E78.5 ; Other elevated white blood cell (WBC) count D72.828 and Skin tag L91.[address] [address] Feb, [address] [address] Feb, Vitamin D deficiency E55.9 and Dyslipide sourav E78.[address] [address] Feb, [address] [address] Feb, Post herpetic neuralgia B02.29 ; Thyroid disorder screen Z13.29 ; Mixed hyperlipidemia E78.2 ; Chronic GERD K21.9 ; Lumbago of lumbar region with sciatica M54.40 ; Prediabetes R73.03 ; Other fatigue R53.83 ; Vitamin D deficiency E55.9 and Vitamin B 12 deficiency E53.8 [facility] [address] [place] [address] 23 Feb, 2017 Reactive airway disease, mild persistent , uncomplicated J45.30 [facility] [address] [place] [address] 23 Feb, 2017 Chronic GERD K21.9 [facility] [address] [place] [address] 23 Feb, 2017 Mixed hyperlipidemia E78.2 and Other chr onic pain G89.29 [facility] [address] [place] [address] Feb, Lumbago with sciatica, left side M54.42 ; Mixed hyperlipidemia E78.2 and Reactive airway disease, mild persistent, uncomplicated J45.30 [facility] [address] [place] [address] Feb, Chronic GERD K21.9 [facility] [address] [place] [address] 19 Feb, 2017 [facility] [address] [place] [address] Feb, [facility] [address] [place] [address] Feb, Post herpetic neuralgia B02.[address] [address] Feb, Allergic contact dermatitis due to other agents L23.89 and Post herpetic neuralgia B02.29 [facility] [address] [place] [address] Feb, Chronic GERD K21.9 [facility] [address] [place] [address] 13 Feb, 2017 Chronic GERD K21.9 [facility] [address] [place] [address] January, Post herpetic neuralgia B02.29 [facility] [address] [place] [address] January, Lumbago with sciatica, left side M54.42 [facility] [address] [place] [address] January, [facility] [address] [place] [address] January, Lumbago of lumbar region with sciatica M 54.40 [facility] [address] [place] [address] 05 Jan, 2017 Other chronic pain G89.29 and Lumbago wi th sciatica, left side M54.42 [facility] [address] [place] [address] January, Depression with anxiety F41.8 [facility] [address] [place] [address] January, Mixed hyperlipidemia E78.2 [facility] [address] [place] [address] January, Abscess of left groin L02.214 [facility] [address] [place] [address] Dec, Depression with anxiety F41.8 [facility] [address] [place] [address] Dec, Irregular periods N92.6 [facility] [address] [place] [address] Nov, Left wrist pain M25.532 and Acute left a nkle pain M25.572 [facility] [address] [place] [address] Nov, Post herpetic neuralgia B02.29 and Absce ss of left groin L02.214 [facility] [address] [place] [address] Sep, Irregular periods N92.6 [facility] [address] [place] [address] Sep, Mixed hyperlipidemia E78.2 ; Flank pain R10.9 and Post herpetic neuralgia B02.29 [facility] [address] [place] [address] Aug, Lumbago of lumbar region with sciatica M 54.40 ; Chronic idiopathic constipation K59.09 ; Depression with anxiety F41.8 and Mixed hyperlipidemia E78.[address] [address] 15 Aug, 2016 Other chronic pain G89.[address] [address] Aug, Reactive airway disease, mild persistent , uncomplicated J45.[address] [address] Aug, [address] [address] Aug, Cough R05 and Allergic contact dermatiti s due to other agents L23.[address] [address] Aug, [address] [address] Jul, Other chronic pain G89.[address] [address] Jul, Upper respiratory tract infection, unspe cified type J06.9 ; Chronic GERD K21.9 ; Acute left ankle pain M25.572 and Lumbago of lumbar region with sciatica M54.[address] [address] Jun, Other chronic pain G89.[address] [address] Jun, [address] [address] Jun, [address] [address] Jun, Chronic GERD K21.[address] [address] Jun, [address] [address] May, Pain in right wrist M25.531 ; Left wrist pain M25.532 ; Acute left ankle pain M25.572 ; Thoracic spine pain M54.6 ; Lumbago with sciatica, left side M54.42 ; Other chronic pain G89.29 and Dysuria R30.0 [facility] [address] [place] [address] May, Chronic GERD K21.9 [facility] [address] [place] [address] May, Chronic GERD K21.9 [facility] [address] [place] [address] May, [facility] [address] [place] [address] May, [facility] [address] [place] [address] May, [facility] [address] [place] [address] May, [facility] [address] [place] [address] May, Mixed hyperlipidemia E78.2 ; Fibromyalgi a M79.7 ; Depression with anxiety F41.8 ; Lumbago of lumbar region with sciatica M54.40 ; Encounter to establish care Z76.89 ; Chronic GERD K21.9 ; History of gestational diabetes Z86.32 ; Chronic idiopathic constipation K59.09 ; Thyroid disorder screen Z13.29 and Need for influenza vaccination Z23 [facility] [address] [place] [address] Apr, Gestational diabetes O24.419 [facility] [address] [place] [phone] Feb, Gestational diabetes O24.419 IMMUNIZATIONS No Known Immunizations SOCIAL HISTORY Never Assessed REASON FOR VISIT possible shingles PLAN OF CARE VITAL SIGNS MEDICATIONS Unknown [...] History Fused L ankle 09/2017 Hospitalization History [facility]- Hyperglycemia and February 2016 Hospitalization History Ankle surgery 09/2017
--- OUTSIDE RECORDS SUMMARY | 2020-03-15 21:25 | XMS REPORT ---
Author Author Solange Sultana [facility] Address [address] [place], [place] [id number] Care Team Providers Care School Commissioner Name Role Phone Felisha Sultana Unavailable PROBLEMS Type Condition ICD9-CM Code VGL98-BP Code Onset Dates Condition S tatus SNOMED Code Problem History of gestational diabetes Z86.32 Active 807266145 Problem Gestational diabetes O24.419 Active 80793315 Problem Chronic GERD K21.9 Active 5131303 09 Problem Prediabetes R73.09 Active 41566908 2 Problem Fibromyalgia M79.7 Active 8231548 05 Problem Mixed hyperlipidemia E78.2 Active 051581301 Problem Depression with anxiety F41.8 Active 535344895 Problem Vitamin D deficiency E55.9 Active 27671663 Problem Lumbago of lumbar region with sciatica M54.40 Active 61433095 Problem Prediabetes R73.03 Active 68761242 2 Problem Chronic idiopathic constipation K59.09 Active 63402791 Problem Other elevated white blood cell (WBC) count D72.82 8 Active 647442958 Problem Absent periods N91.2 Active 21758 001 Problem Generalized anxiety disorder F41.1 A ctive 02385839 Problem Irritable bowel syndrome with diarrhea K58.0 Active 400195099 Problem Cigarette nicotine dependence, uncomplicated F17.2 10 Active 94183872 Problem Other chronic pain G89.29 Active 8 2230805 Problem Acute left ankle pain M25.572 Active 83181409844328 Problem Thoracic spine pain M54.6 Active 193071651 Problem Left hand pain M79.642 Active 53525 2436322718 Problem Decreased hearing of left ear H91.92 Active 20491082 Problem Elevated blood pressure reading R03.0 Active 74533403 Problem Cervical pain M54.2 Active 900502 05 Problem Left wrist pain M25.532 Active 5660 8008 Problem Plantar fasciitis M72.2 Active 20 6114158 Problem Lumbago with sciatica, left side M54.42 Active 772036991 Problem Pain in right wrist M25.531 Active 52415192 Problem Irregular periods N92.6 Active 80 399065 Problem Other fatigue R53.83 Active 753872 01 Problem Reactive airway disease, mild persistent, uncomplicated J45.30 Active 390998332729 Problem Post herpetic neuralgia B02.29 Active 0280369 ALLERGIES No Information ENCOUNTERS Encounter Location Date Diagnosis [facility] [address] [place] [address] Jun, [address] [address] Jun, Butterfly rash R21 ; Influenza vaccine n eeded Z23 ; Prediabetes R73.09 ; Mixed hyperlipidemia E78.2 and Vitamin D deficiency E55.[address] [address] Apr, Left ankle swelling M25.[address] [address] Apr, [address] [address] Apr, [address] [address] Mar, Edema of left foot R60.[address] [address] Mar, Irritable bowel syndrome with diarrhea K 58.[address] [address] Mar, [address] [address] Mar, [address] [address] Mar, [address] [address] Feb, Irritable bowel syndrome with diarrhea K 58.[address] [address] Feb, [address] [address] Feb, Irritable bowel syndrome with diarrhea K 58.0 [facility] [address] [place] [address] Feb, control counseling Z30.09 ; Lumbag o with sciatica, left side M54.42 and Chronic GERD K21.9 [facility] [address] [place] [address] Feb, [facility] [address] [place] [address] Feb, [facility] [address] [place] [address] Feb, [facility] [address] [place] [address] Feb, Diarrhea, unspecified type R19.7 [facility] [address] [place] [address] Feb, Abnormal glucose R73.09 [facility] [address] [place] [address] Feb, Abnormal glucose R73.09 [facility] [address] [place] [address] Feb, Reactive airway disease, mild persistent , uncomplicated J45.30 [facility] [address] [place] [address] Feb, Lumbago with sciatica, left side M54.42 ; Cigarette nicotine dependence, uncomplicated F17.210 ; Diarrhea, unspecified type R19.7 and Abnormal glucose R73.09 [facility] [address] [place] [address] January, [facility] [address] [place] [address] January, [facility] [address] [place] [address] January, [facility] [address] [place] [address] January, [facility] [address] [place] [address] January, Muscle strain of chest wall, initial enc ounter S29.011A ; Physical exam Z00.00 ; Need for hepatitis vaccination Z23 and Abscess L02.[address] [address] Dec, Left hand pain M79.642 ; Thoracic spine pain M54.6 ; Cervical pain M54.2 and Elevated blood pressure reading R03.[address] [address] Dec, Lumbago with sciatica, left side M54.42 and Decreased hearing of left ear H91.[address] [address] Dec, Other chest pain R07.89 ; Finger pain, l eft M79.645 ; Chronic GERD K21.9 and Muscle strain of chest wall, initial encounter S29.011A [address] [address] Dec, [address] [address] Dec, Other constipation K59.09 ; Irregular pe riods N92.6 and Absent periods N91.[address] [address] Oct, [address] [address] Oct, Weight gain R63.[address] [address] Oct, Generalized anxiety disorder F41.[address] [address] Sep, [address] [address] Sep, Absent periods N91.2 and Decreased heari ng of left ear H91.[address] [address] Sep, [address] [place] [address] Sep, Pre-op exam Z01.818 and Abscess of chest wall L02.[address] [address] Sep, [address] [address] Sep, Prediabetes R73.09 ; Vitamin D deficienc y E55.9 ; Mixed hyperlipidemia E78.2 and Arthritis of ankle, left M19.[address] [address] Sep, Smoking trying to quit Z72.0 ; Chronic G ERD K21.9 ; Generalized anxiety disorder F41.1 ; Other chest pain R07.89 ; Other constipation K59.09 and Right upper quadrant pain R10.[address] [address] Aug, [address] [address] Aug, Other chronic pain G89.[address] [address] Aug, Mixed hyperlipidemia E78.2 ; Fibromyalgi a M79.7 ; Lumbago of lumbar region with sciatica M54.40 ; History of gestational diabetes Z86.32 ; Prediabetes R73.09 ; Vitamin D deficiency E55.9 ; Weight gain R63.5 ; control counseling Z30.09 ; Pain, dental K08.89 and Flank pain R10.[address] [address] Aug, [address] [address] Jun, Acute left ankle pain M25.[address] [address] Jun, [address] [address] Jun, [address] [address] Jun, Acute left ankle pain M25.572 [facility] [address] [place] [address] Jun, [facility] [address] [place] [address] Jun, Acute left ankle pain M25.572 [facility] [address] [place] [address] Jun, Influenza vaccine needed Z23 and Irregul ar periods N92.6 [facility] [address] [place] [address] May, Mixed hyperlipidemia E78.2 [facility] [address] [place] [address] May, [facility] [address] [place] [address] May, Chronic GERD K21.9 [facility] [address] [place] [address] Apr, Weight gain R63.5 [facility] [address] [place] [address] Apr, Chronic GERD K21.9 and Weight gain R63.5 [facility] [address] [place] [address] Mar, Depression with anxiety F41.8 and Chroni c idiopathic constipation K59.09 [facility] [address] [place] [address] Mar, Other chronic pain G89.29 [facility] [address] [place] [address] Mar, Post herpetic neuralgia B02.29 [facility] [address] [place] [address] Mar, Post herpetic neuralgia B02.29 [facility] [address] [place] [address] Mar, [facility] [address] [place] [address] Mar, Other elevated white blood cell (WBC) co unt D72.[address] [address] Mar, Other elevated white blood cell (WBC) co unt D72.828 and Dyslipidemia E78.[address] [address] Feb, [address] [address] Feb, Vitamin D deficiency E55.9 ; Dyslipidemi a E78.5 ; Other elevated white blood cell (WBC) count D72.828 and Skin tag L91.[address] [address] Feb, [address] [address] Feb, Vitamin D deficiency E55.9 and Dyslipide sourav E78.[address] [address] Feb, [address] [address] Feb, Post herpetic neuralgia B02.29 ; Thyroid disorder screen Z13.29 ; Mixed hyperlipidemia E78.2 ; Chronic GERD K21.9 ; Lumbago of lumbar region with sciatica M54.40 ; Prediabetes R73.03 ; Other fatigue R53.83 ; Vitamin D deficiency E55.9 and Vitamin B 12 deficiency E53.[address] [address] Feb, Reactive airway disease, mild persistent , uncomplicated J45.[address] [address] Feb, Chronic GERD K21.[address] [address] Feb, Mixed hyperlipidemia E78.2 and Other chr onic pain G89.[address] [address] Feb, Lumbago with sciatica, left side M54.42 ; Mixed hyperlipidemia E78.2 and Reactive airway disease, mild persistent, uncomplicated J45.30 [facility] [address] [place] [address] Feb, Chronic GERD K21.9 [facility] [address] [place] [address] Feb, [facility] [address] [place] [address] Feb, [facility] [address] [place] [address] Feb, Post herpetic neuralgia B02.29 [facility] [address] [place] [address] Feb, Allergic contact dermatitis due to other agents L23.89 and Post herpetic neuralgia B02.29 [facility] [address] [place] [address] Feb, Chronic GERD K21.9 [facility] [address] [place] [address] Feb, Chronic GERD K21.9 [facility] [address] [place] [address] January, Post herpetic neuralgia B02.29 [facility] [address] [place] [address] January, Lumbago with sciatica, left side M54.42 [facility] [address] [place] [address] January, [facility] [address] [place] [address] January, Lumbago of lumbar region with sciatica M 54.40 [facility] [address] [place] [address] January, Other chronic pain G89.29 and Lumbago wi th sciatica, left side M54.42 [facility] [address] [place] [address] January, Depression with anxiety F41.8 [facility] [address] [place] [address] January, Mixed hyperlipidemia E78.2 [facility] [address] [place] [address] January, Abscess of left groin L02.214 [facility] [address] [place] [address] Dec, Depression with anxiety F41.8 [facility] [address] [place] [address] Dec, Irregular periods N92.[address] [address] Nov, Left wrist pain M25.532 and Acute left a nkle pain M25.[address] [address] Nov, Post herpetic neuralgia B02.29 and Absce ss of left groin L02.[address] [address] Sep, Irregular periods N92.6 [facility] [address] [place] [address] Sep, Mixed hyperlipidemia E78.2 ; Flank pain R10.9 and Post herpetic neuralgia B02.[address] [address] Aug, Lumbago of lumbar region with sciatica M 54.40 ; Chronic idiopathic constipation K59.09 ; Depression with anxiety F41.8 and Mixed hyperlipidemia E78.2 [facility] [address] [place] [address] Aug, Other chronic pain G89.[address] [address] Aug, Reactive airway disease, mild persistent , uncomplicated J45.[address] [address] Aug, [address] [address] Aug, Cough R05 and Allergic contact dermatiti s due to other agents L23.[address] [address] Aug, [address] [address] Jul, Other chronic pain G89.[address] [address] Jul, Upper respiratory tract infection, unspe cified type J06.9 ; Chronic GERD K21.9 ; Acute left ankle pain M25.572 and Lumbago of lumbar region with sciatica M54.[address] [address] Jun, Other chronic pain G89.[address] [address] Jun, [address] [address] Jun, [address] [address] Jun, Chronic GERD K21.[address] [address] Jun, [address] [address] May, Pain in right wrist M25.531 ; Left wrist pain M25.532 ; Acute left ankle pain M25.572 ; Thoracic spine pain M54.6 ; Lumbago with sciatica, left side M54.42 ; Other chronic pain G89.29 and Dysuria R30.[address] [address] May, Chronic GERD K21.[address] [address] May, Chronic GERD K21.[address] [address] May, [address] [address] 19 May, 2016 [facility] [address] [place] [address] 16 May, 2016 [facility] [address] [place] [address] 16 May, 2016 [facility] [address] [place] [address] 16 May, 2016 Mixed hyperlipidemia E78.2 ; Fibromyalgi a M79.7 ; Depression with anxiety F41.8 ; Lumbago of lumbar region with sciatica M54.40 ; Encounter to establish care Z76.89 ; Chronic GERD K21.9 ; History of gestational diabetes Z86.32 ; Chronic idiopathic constipation K59.09 ; Thyroid disorder screen Z13.29 and Need for influenza vaccination Z23 [facility] [address] [place] [address] Apr, Gestational diabetes O24.419 [facility] [address] [place] [address] 30 [address]23[address] Feb, Gestational diabetes O24.419 IMMUNIZATIONS No Known [...] History Fused L ankle 09/2017 Hospitalization History [facility]- Hyperglycemia and February 2016 Hospitalization History Ankle surgery 09/2017
--- OUTSIDE RECORDS SUMMARY | 2020-03-15 21:25 | XMS REPORT ---
Author Author Solange Sultana [facility] Address [address], [place] [id number] Care Team Providers Care Sales Team Manager Name Role Phone Felisha Sultana Unavailable PROBLEMS Type Condition ICD9-CM Code NDT53-HR Code Onset Dates Condition S tatus SNOMED Code Problem Gestational diabetes O24.419 Active 04225118 Problem Chronic GERD K21.9 Active 1692306 09 Problem History of gestational diabetes Z86.32 Active 315091476 Problem Prediabetes R73.09 Active 24397976 2 Problem Fibromyalgia M79.7 Active 0165394 05 Problem Mixed hyperlipidemia E78.2 Active 917306390 Problem Depression with anxiety F41.8 Active 461114503 Problem Lumbago of lumbar region with sciatica M54.40 Active 58453353 Problem Prediabetes R73.03 Active 16009853 2 Problem Chronic idiopathic constipation K59.09 Active 92605800 Problem Other elevated white blood cell (WBC) count D72.82 8 Active 733542426 Problem Thoracic spine pain M54.6 Active 987414779 Problem Generalized anxiety disorder F41.1 A ctive 38672112 Problem Decreased hearing of left ear H91.92 Active 62068902 Problem Absent periods N91.2 Active 78321 001 Problem Rosacea L71.9 Active 927956196 Problem Irritable bowel syndrome with diarrhea K58.0 Active 462378808 Problem Lumbago with sciatica, left side M54.42 Active 463969504 Problem Other chronic pain G89.29 Active 8 4849476 Problem Acute left ankle pain M25.572 Active 16168312743094 Problem Cervical pain M54.2 Active 691030 05 Problem Left hand pain M79.642 Active 08066 9386052877 Problem Cigarette nicotine dependence, uncomplicated F17.2 10 Active 67960821 Problem Elevated blood pressure reading R03.0 Active 57498529 Problem Plantar fasciitis M72.2 Active 20 0420079 Problem Reactive airway disease, mild persistent, uncomplicated J45.30 Active 880653509076 Problem Pain in right wrist M25.531 Active 64207368 Problem Left wrist pain M25.532 Active 5660 8008 Problem Other fatigue R53.83 Active 920789 01 Problem Vitamin D deficiency E55.9 Active 42264807 Problem Post herpetic neuralgia B02.29 Active 4327014 Problem Irregular periods N92.6 Active 80 387328 ALLERGIES Substance Reaction Event Type Date Status Oxycodone HCl vomitting Drug Allergy Jun, Active Hydrocodone-Acetaminophen vomitting Drug Allergy Jun, Ac tive ENCOUNTERS Encounter Location Date Diagnosis [address] [address] Aug, [address] [address] Jun, Shingles B02.[address] [address] Jun, Pruritic dermatitis L29.9 and Rosacea L7 1.[address] [address] Jun, [address] [address] Jun, [facility] [address] [place] [address] Jun, [address] [address] Jun, Butterfly rash R21 ; Influenza vaccine n eeded Z23 ; Prediabetes R73.09 ; Mixed hyperlipidemia E78.2 and Vitamin D deficiency E55.9 [facility] [address] [place] [address] Apr, Left ankle swelling M25.[address] [address] Apr, [facility] [address] [place] [address] Apr, [address] [address] Mar, Edema of left foot R60.0 [facility] [address] [place] [address] Mar, Irritable bowel syndrome with diarrhea K 58.0 [facility] [address] [place] [address] Mar, [facility] [address] [place] [address] Mar, [facility] [address] [place] [address] Mar, [facility] [address] [place] [address] Feb, Irritable bowel syndrome with diarrhea K 58.0 [facility] [address] [place] [address] Feb, [facility] [address] [place] [address] Feb, Irritable bowel syndrome with diarrhea K 58.0 [facility] [address] [place] [address] Feb, control counseling Z30.09 ; Lumbag o with sciatica, left side M54.42 and Chronic GERD K21.9 [facility] [address] [place] [address] Feb, [facility] [address] [place] [address] Feb, [facility] [address] [place] [address] Feb, [facility] [address] [place] [address] Feb, Diarrhea, unspecified type R19.7 [facility] [address] [place] [address] Feb, Abnormal glucose R73.09 [facility] [address] [place] [address] Feb, Abnormal glucose R73.09 [facility] [address] [place] [address] 05 Feb, 2018 Reactive airway disease, mild persistent , uncomplicated J45.[address] [address] Feb, Lumbago with sciatica, left side M54.42 ; Cigarette nicotine dependence, uncomplicated F17.210 ; Diarrhea, unspecified type R19.7 and Abnormal glucose R73.[address] [address] January, [address] [address] January, [address] [address] January, [address] [address] January, [address] [address] January, Muscle strain of chest wall, initial enc ounter S29.011A ; Physical exam Z00.00 ; Need for hepatitis vaccination Z23 and Abscess L02.[address] [address] Dec, Left hand pain M79.642 ; Thoracic spine pain M54.6 ; Cervical pain M54.2 and Elevated blood pressure reading R03.[address] [address] Dec, Lumbago with sciatica, left side M54.42 and Decreased hearing of left ear H91.[address] [address] Dec, Other chest pain R07.89 ; Finger pain, l eft M79.645 ; Chronic GERD K21.9 and Muscle strain of chest wall, initial encounter S29.011A [address] [address] Dec, [address] [address] Dec, Other constipation K59.09 ; Irregular pe riods N92.6 and Absent periods N91.2 [address] [place] [address] 13 Oct, [address] [address] Oct, Weight gain R63.[address] [address] Oct, Generalized anxiety disorder F41.[address] [address] Sep, [address] [address] Sep, Absent periods N91.2 and Decreased heari ng of left ear H91.[address] [address] Sep, [address] [address] Sep, Pre-op exam Z01.818 and Abscess of chest wall L02.[address] [address] Sep, [address] [address] Sep, Prediabetes R73.09 ; Vitamin D deficienc y E55.9 ; Mixed hyperlipidemia E78.2 and Arthritis of ankle, left M19.[address] [address] Sep, Smoking trying to quit Z72.0 ; Chronic G ERD K21.9 ; Generalized anxiety disorder F41.1 ; Other chest pain R07.89 ; Other constipation K59.09 and Right upper quadrant pain R10.[address] [address] Aug, [address] [address] Aug, Other chronic pain G89.[address] [address] Aug, Mixed hyperlipidemia E78.2 ; Fibromyalgi a M79.7 ; Lumbago of lumbar region with sciatica M54.40 ; History of gestational diabetes Z86.32 ; Prediabetes R73.09 ; Vitamin D deficiency E55.9 ; Weight gain R63.5 ; control counseling Z30.09 ; Pain, dental K08.89 and Flank pain R10.9 [facility] [address] [place] [address] Aug, [facility] [address] [place] [address] Jun, Acute left ankle pain M25.572 [facility] [address] [place] [address] Jun, [facility] [address] [place] [address] Jun, [facility] [address] [place] [address] Jun, Acute left ankle pain M25.572 [facility] [address] [place] [address] Jun, [facility] [address] [place] [address] Jun, Acute left ankle pain M25.572 [facility] [address] [place] [address] Jun, Influenza vaccine needed Z23 and Irregul ar periods N92.6 [facility] [address] [place] [address] May, Mixed hyperlipidemia E78.2 [facility] [address] [place] [address] May, [facility] [address] [place] [address] May, Chronic GERD K21.9 [facility] [address] [place] [address] Apr, Weight gain R63.5 [facility] [address] [place] [address] Apr, Chronic GERD K21.9 and Weight gain R63.[address] [address] Mar, Depression with anxiety F41.8 and Chroni c idiopathic constipation K59.[address] [address] Mar, Other chronic pain G89.[address] [address] Mar, Post herpetic neuralgia B02.[address] [address] Mar, Post herpetic neuralgia B02.[address] [address] Mar, [address] [address] Mar, Other elevated white blood cell (WBC) co unt D72.[address] [address] Mar, Other elevated white blood cell (WBC) co unt D72.828 and Dyslipidemia E78.[address] [address] Feb, [address] [address] Feb, Vitamin D deficiency E55.9 ; Dyslipidemi a E78.5 ; Other elevated white blood cell (WBC) count D72.828 and Skin tag L91.[address] [address] Feb, [address] [address] Feb, Vitamin D deficiency E55.9 and Dyslipide sourav E78.[address] [address] Feb, [address] [address] Feb, Post herpetic neuralgia B02.29 ; Thyroid disorder screen Z13.29 ; Mixed hyperlipidemia E78.2 ; Chronic GERD K21.9 ; Lumbago of lumbar region with sciatica M54.40 ; Prediabetes R73.03 ; Other fatigue R53.83 ; Vitamin D deficiency E55.9 and Vitamin B 12 deficiency E53.8 [facility] [address] [place] [address] Feb, Reactive airway disease, mild persistent , uncomplicated J45.[address] [address] Feb, Chronic GERD K21.[address] [address] Feb, Mixed hyperlipidemia E78.2 and Other chr onic pain G89.[address] [address] Feb, Lumbago with sciatica, left side M54.42 ; Mixed hyperlipidemia E78.2 and Reactive airway disease, mild persistent, uncomplicated J45.[address] [address] Feb, Chronic GERD K21.[address] [address] Feb, [address] [address] 19 Feb, [address] [address] 16 Feb, 2017 Post herpetic neuralgia B02.[address] [address] Feb, Allergic contact dermatitis due to other agents L23.89 and Post herpetic neuralgia B02.[address] [address] 16 Feb, 2017 Chronic GERD K21.[address] [address] 13 Feb, 2017 Chronic GERD K21.[address] [address] January, Post herpetic neuralgia B02.29 [facility] [address] [place] [address] January, Lumbago with sciatica, left side M54.42 [facility] [address] [place] [address] January, [facility] [address] [place] [address] January, Lumbago of lumbar region with sciatica M 54.40 [facility] [address] [place] [address] January, Other chronic pain G89.29 and Lumbago wi th sciatica, left side M54.42 [facility] [address] [place] [address] January, Depression with anxiety F41.8 [facility] [address] [place] [address] January, Mixed hyperlipidemia E78.2 [facility] [address] [place] [address] January, Abscess of left groin L02.214 [facility] [address] [place] [address] Dec, Depression with anxiety F41.8 [facility] [address] [place] [address] Dec, Irregular periods N92.6 [facility] [address] [place] [address] Nov, Left wrist pain M25.532 and Acute left a nkle pain M25.572 [facility] [address] [place] [address] Nov, Post herpetic neuralgia B02.29 and Absce ss of left groin L02.214 [facility] [address] [place] [address] Sep, Irregular periods N92.6 [facility] [address] [place] [address] Sep, Mixed hyperlipidemia E78.2 ; Flank pain R10.9 and Post herpetic neuralgia B02.29 [facility] [address] [place] [address] Aug, Lumbago of lumbar region with sciatica M 54.40 ; Chronic idiopathic constipation K59.09 ; Depression with anxiety F41.8 and Mixed hyperlipidemia E78.2 [facility] [address] [place] [address] Aug, Other chronic pain G89.[address] [address] Aug, Reactive airway disease, mild persistent , uncomplicated J45.[address] [address] Aug, [address] [address] Aug, Cough R05 and Allergic contact dermatiti s due to other agents L23.[address] [address] Aug, [address] [address] Jul, Other chronic pain G89.[address] [address] Jul, Upper respiratory tract infection, unspe cified type J06.9 ; Chronic GERD K21.9 ; Acute left ankle pain M25.572 and Lumbago of lumbar region with sciatica M54.[address] [address] Jun, Other chronic pain G89.[address] [address] Jun, [address] [address] Jun, [address] [address] Jun, Chronic GERD K21.[address] [address] Jun, [facility] [address] [place] [address] 30 May, 2016 Pain in right wrist M25.531 ; Left wrist pain M25.532 ; Acute left ankle pain M25.572 ; Thoracic spine pain M54.6 ; Lumbago with sciatica, left side M54.42 ; Other chronic pain G89.29 and Dysuria R30.0 [facility] [address] [place] [address] May, Chronic GERD K21.9 [facility] [address] [place] [address] May, Chronic GERD K21.[address] [address] May, [facility] [address] [place] [address] May, [facility] [address] [place] [address] May, [facility] [address] [place] [address] May, [facility] [address] [place] [address] May, Mixed hyperlipidemia E78.2 ; Fibromyalgi a M79.7 ; Depression with anxiety F41.8 ; Lumbago of lumbar region with sciatica M54.40 ; Encounter to establish care Z76.89 ; Chronic GERD K21.9 ; History of gestational diabetes Z86.32 ; Chronic idiopathic constipation K59.09 ; Thyroid disorder screen Z13.29 and Need for influenza vaccination Z23 [facility] [address] [place] [address] Apr, Gestational diabetes O24.419 [facility] [address] [place], [place] [address] Feb, Gestational diabetes O24.419 IMMUNIZATIONS Vaccine Route Administration Date Status Influenza Split 3 yrs > (QUAD) IM Intramuscular Jun 24, 2018 Administered VITAMIN B-12 IM Intramuscular Jun 24, 2018 Administered SOCIAL HISTORY Never Assessed REASON FOR VISIT fu on L ankle pain PLAN OF CARE Activity Details Follow Up 2 Months, prn Reason:f/u and [place] V[facility] SIGNS Height 69.5 in 2018-06-24 Weight 319 lbs 2018-06-24 Temperature 96.7 degrees Fahrenheit 2018-06-24 Heart Rate 82 /min 2018-06-24 Respiratory Rate 18 /min 2018-06-24 Oximetry 98 % 2018-06-24 BMI 46.43 kg/m2 2018-06-24 Blood pressure systolic 122 mm Hg 2018-06-24 Blood pressure diastolic 84 mm Hg 2018-06-24 MEDICATIONS Medication Instructions Dosage Frequency Start Date End Date Duration S tatus Pravastatin Sodium 20 MG TAKE 1 TABLET BY MOUTH EVERY NIGHT AT BEDTIME 90 Active Nortriptyline HCl 25 MG Orally QHS 1 capsule 30 Active Gabapentin 600 MG Orally five times daily 1 tablet Active Zoloft 100 MG Orally Once a day 2 tablet 24h Active Pantoprazole Sodium 40 MG Orally BID 1 tablet 12h Jul, 30 days Active Gralise 600 MG Orally Once a day 1 tablet in the am, 1 tablet with lunch, 3 tablets with evening meal 24h Feb, Ac tive Benefiber - Orally Two times daily 2 May, 30 days Not-Taking Fiber Not-Taking Sertraline HCl 100 MG Orally Once a day 2 tablet 24h Active Multivitamin Adult - Act nancy Tramadol HCl 50 MG Orally Three times daily take 1 tablet b y mouth three times daily 30 Active Ventolin HFA 108 (90 Base) MCG/ACT Inhalation every 4 hrs 2 puffs a s needed 4h Aug, 30 days Active Cyclobenzaprine HCl 10 MG TAKE 1 TABLET BY MOUTH THREE (3) T IMES DAILY 30 Active Colace 100 MG Orally Once a day 1 capsule as needed 24h 30 Active Mobic 15 MG Orally Once a day 1 tablet 24h Jul, 90 d ays Active Victoza 18 MG/3ML Subcutaneous inject 1.8 Once daily as directed Feb, Not-Taking MorphaBond ER 15 MG Orally every 12 hrs 1 tablet 12h Aug, 30 days Not-Taking MedroxyPROGESTERone Acetate 10 MG Orally Once a day 1 tablet with f ood 24h Sep, Not-Taking RESULTS Name Result Date Reference Range Sedimentation Rate, Modified Westergren (ESR) 65841 2018-06-24 Sedimentation Rate-Westergren 32 0- 32 Rheumatoid Arthritis Factor 2018-06-24 RA Latex Turbid. <10.0 0.0-13.9 C-Reactive Protein (CRP), Quant 62108 2018-06-24 C-Reactive Protein, Quant 3.3 0.0-4. 9 Antinuclear Antibodies ([facility]) w/Reflex to Multiple Confirmato ry Tests 11136 2018-06-24 [facility] Direct Negative Negative Hemoglobin A1c 2018-06-24 Hemoglobin A1c 5.9 4.8-5.6 Vitamin D, 25-Hydroxy 22500 2018-06-24 Vitamin D, 25-Hydroxy 17.6 30.0-100.0 Lipid Panel 93892 2018-06-24 Cholesterol, Total 213 100-199 Triglycerides 264 0-149 HDL Cholesterol 40 >39 VLDL Cholesterol Dillon 53 5-40 LDL Cholesterol Calc 120 0-99 Comment: MANAGER POST PROCEDURES Procedure Date Ordered Result Body Site VITAMIN B-12 Jun 24, 2018 THER/PROPH/DIAG INJ, SC/IM Jun 24, 2018 RBC SED RATE, AUTOMATED Jun 24, 2018 ANTINUCLEAR ANTIBODIES Jun 24, 2018 FLU VAC NO PRSV 4 JEFF 3 YRS+ Jun 24, 2018 IMMUNIZATION ADMIN Jun 24, 2018 GLYCATED HEMOGLOBIN TEST SO Jun 24, 2018 RHEUMATOID FACTOR, QUANT Jun 24, 2018 ASSAY OF VITAMIN D Jun 24, 2018 LIPID PANEL SO Jun 24, 2018 INSTRUCTIONS MEDICATIONS ADMINISTERED No Known Medications [...] Fused L ankle 09/2017 Hospitalization History [facility]- Hyperglycemia and February 2016 Hospitalization History Ankle surgery 09/2017
--- OUTSIDE RECORDS SUMMARY | 2020-03-15 21:25 | XMS REPORT ---
Author Author Solange Sultana [facility] Address [address] [place], [place] [address] Care Team Providers Care Auto Claim Representative Name Role Phone Felisha Sultana Unavailable PROBLEMS Type Condition ICD9-CM Code MLA32-BX Code Onset Dates Condition S tatus SNOMED Code Problem History of gestational diabetes Z86.32 Active 045726586 Problem Gestational diabetes O24.419 Active 65977613 Problem Prediabetes R73.09 Active 94687436 2 Problem Chronic GERD K21.9 Active 8331652 09 Problem Fibromyalgia M79.7 Active 1877485 05 Problem Mixed hyperlipidemia E78.2 Active 493980914 Problem Depression with anxiety F41.8 Active 823638737 Problem Lumbago of lumbar region with sciatica M54.40 Active 50981226 Problem Chronic idiopathic constipation K59.09 Active 49284128 Problem Other elevated white blood cell (WBC) count D72.82 8 Active 440524801 Problem Thoracic spine pain M54.6 Active 966471761 Problem Generalized anxiety disorder F41.1 A ctive 35229295 Problem Acute left ankle pain M25.572 Active 04934829472402 Problem Absent periods N91.2 Active 01815 001 Problem Left hand pain M79.642 Active 24485 7335054548 Problem Decreased hearing of left ear H91.92 Active 09091508 Problem Menstrual cramps N94.6 Active 431 309790 Problem Rosacea L71.9 Active 899800555 Problem Pain in right wrist M25.531 Active 00416673 Problem Lumbago with sciatica, left side M54.42 Active 095123183 Problem Other chronic pain G89.29 Active 8 8625493 Problem Elevated blood pressure reading R03.0 Active 62911159 Problem Cervical pain M54.2 Active 568771 05 Problem Irritable bowel syndrome with diarrhea K58.0 Active 510991195 Problem Cigarette nicotine dependence, uncomplicated F17.2 10 Active 13706668 Problem Reactive airway disease, mild persistent, uncomplicated J45.30 Active 921411858698 Problem Post herpetic neuralgia B02.29 Active 8735950 Problem Left wrist pain M25.532 Active 5660 8008 Problem Plantar fasciitis M72.2 Active 20 4957284 Problem Vitamin D deficiency E55.9 Active 65943782 Problem Prediabetes R73.03 Active 80317034 2 Problem Irregular periods N92.6 Active 80 476411 Problem Other fatigue R53.83 Active 250532 01 ALLERGIES Substance Reaction Event Type Date Status Oxycodone HCl vomitting Drug Allergy Jul, Active Hydrocodone-Acetaminophen vomitting Drug Allergy Jul, Ac tive all medical tape rash Non Drug Allergy Jul, Active latex rash Non Drug Allergy Jul, Active ENCOUNTERS Encounter Location Date Diagnosis [address] [address] Aug, [address] [address] Jul, Mixed hyperlipidemia E78.2 ; Chronic ABDOUL D K21.9 and Generalized anxiety disorder F41.[address] [address] Jul, Well woman exam with routine gynecologic al exam Z01.419 ; Menstrual cramps N94.6 ; Acute left ankle pain M25.572 and Snoring R06.[address] [address] Jun, Shingles B02.[address] [address] Jun, Pruritic dermatitis L29.9 and Rosacea L7 1.[address] [address] Jun, [address] [address] Jun, [address] [address] Jun, [address] [address] Jun, Butterfly rash R21 ; Influenza vaccine n eeded Z23 ; Prediabetes R73.09 ; Mixed hyperlipidemia E78.2 and Vitamin D deficiency E55.9 [facility] [address] [place] [address] Apr, Left ankle swelling M25.[address] [facility] [address] [place] [address] Apr, [facility] [address] [place] [address] Apr, [facility] [address] [place] [address] Mar, Edema of left foot R60.0 [facility] [address] [place] [address] Mar, Irritable bowel syndrome with diarrhea K 58.0 [facility] [address] [place] [address] Mar, [facility] [address] [place] [address] Mar, [facility] [address] [place] [address] Mar, [facility] [address] [place] [address] Feb, Irritable bowel syndrome with diarrhea K 58.0 [facility] [address] [place] [address] Feb, [facility] [address] [place] [address] Feb, Irritable bowel syndrome with diarrhea K 58.0 [facility] [address] [place] [address] Feb, control counseling Z30.09 ; Lumbag o with sciatica, left side M54.42 and Chronic GERD K21.9 [facility] [address] [place] [address] Feb, [facility] [address] [place] [address] Feb, [facility] [address] [place] [address] Feb, [address] [address] Feb, Diarrhea, unspecified type R19.[address] [address] Feb, Abnormal glucose R73.[address] [address] Feb, Abnormal glucose R73.[address] [address] Feb, Reactive airway disease, mild persistent , uncomplicated J45.[address] [address] Feb, Lumbago with sciatica, left side M54.42 ; Cigarette nicotine dependence, uncomplicated F17.210 ; Diarrhea, unspecified type R19.7 and Abnormal glucose R73.[address] [address] January, [address] [address] January, [address] [address] January, [address] [address] January, [address] [address] January, Muscle strain of chest wall, initial enc ounter S29.011A ; Physical exam Z00.00 ; Need for hepatitis vaccination Z23 and Abscess L02.[address] [address] Dec, Left hand pain M79.642 ; Thoracic spine pain M54.6 ; Cervical pain M54.2 and Elevated blood pressure reading R03.[address] [address] Dec, Lumbago with sciatica, left side M54.42 and Decreased hearing of left ear H91.92 [facility] [address] [place] [address] Dec, Other chest pain R07.89 ; Finger pain, l eft M79.645 ; Chronic GERD K21.9 and Muscle strain of chest wall, initial encounter S29.011A [address] [address] Dec, [address] [address] Dec, Other constipation K59.09 ; Irregular pe riods N92.6 and Absent periods N91.[address] [address] Oct, [address] [address] Oct, Weight gain R63.[address] [address] Oct, Generalized anxiety disorder F41.[address] [address] Sep, [address] [address] Sep, Absent periods N91.2 and Decreased heari ng of left ear H91.[address] [address] Sep, [address] [address] Sep, Pre-op exam Z01.818 and Abscess of chest wall L02.[address] [address] Sep, [address] [address] Sep, Prediabetes R73.09 ; Vitamin D deficienc y E55.9 ; Mixed hyperlipidemia E78.2 and Arthritis of ankle, left M19.[address] [address] Sep, Smoking trying to quit Z72.0 ; Chronic G ERD K21.9 ; Generalized anxiety disorder F41.1 ; Other chest pain R07.89 ; Other constipation K59.09 and Right upper quadrant pain R10.11 [facility] [address] [place] [address] Aug, [facility] [address] [place] [address] Aug, Other chronic pain G89.29 [facility] [address] [place] [address] Aug, Mixed hyperlipidemia E78.2 ; Fibromyalgi a M79.7 ; Lumbago of lumbar region with sciatica M54.40 ; History of gestational diabetes Z86.32 ; Prediabetes R73.09 ; Vitamin D deficiency E55.9 ; Weight gain R63.5 ; control counseling Z30.09 ; Pain, dental K08.89 and Flank pain R10.9 [facility] [address] [place] [address] Aug, [facility] [address] [place] [address] Jun, Acute left ankle pain M25.[address] [address] Jun, [facility] [address] [place] [address] Jun, [facility] [address] [place] [address] Jun, Acute left ankle pain M25.[address] [address] Jun, [facility] [address] [place] [address] Jun, Acute left ankle pain M25.[address] [address] Jun, Influenza vaccine needed Z23 and Irregul ar periods N92.6 [facility] [address] [place] [address] May, Mixed hyperlipidemia E78.2 [facility] [address] [place] [address] May, [address] [address] May, Chronic GERD K21.[address] [address] Apr, Weight gain R63.[address] [address] Apr, Chronic GERD K21.9 and Weight gain R63.[address] [address] Mar, Depression with anxiety F41.8 and Chroni c idiopathic constipation K59.[address] [address] Mar, Other chronic pain G89.[address] [address] Mar, Post herpetic neuralgia B02.[address] [address] Mar, Post herpetic neuralgia B02.[address] [address] Mar, [address] [address] Mar, Other elevated white blood cell (WBC) co unt D72.[address] [address] Mar, Other elevated white blood cell (WBC) co unt D72.828 and Dyslipidemia E78.[address] [address] Feb, [address] [address] Feb, Vitamin D deficiency E55.9 ; Dyslipidemi a E78.5 ; Other elevated white blood cell (WBC) count D72.828 and Skin tag L91.[address] [address] Feb, [address] [address] Feb, Vitamin D deficiency E55.9 and Dyslipide sourav E78.[address] [address] Feb, [address] [address] Feb, Post herpetic neuralgia B02.29 ; Thyroid disorder screen Z13.29 ; Mixed hyperlipidemia E78.2 ; Chronic GERD K21.9 ; Lumbago of lumbar region with sciatica M54.40 ; Prediabetes R73.03 ; Other fatigue R53.83 ; Vitamin D deficiency E55.9 and Vitamin B 12 deficiency E53.[address] [address] Feb, Reactive airway disease, mild persistent , uncomplicated J45.[address] [address] Feb, Chronic GERD K21.[address] [address] Feb, Mixed hyperlipidemia E78.2 and Other chr onic pain G89.[address] [address] Feb, Lumbago with sciatica, left side M54.42 ; Mixed hyperlipidemia E78.2 and Reactive airway disease, mild persistent, uncomplicated J45.[address] [address] Feb, Chronic GERD K21.[address] [address] Feb, [address] [address] Feb, [address] [address] Feb, Post herpetic neuralgia B02.29 [facility] [address] [place] [address] 16 Feb, 2017 Allergic contact dermatitis due to other agents L23.89 and Post herpetic neuralgia B02.29 [facility] [address] [place] [address] 16 Feb, 2017 Chronic GERD K21.[address] [facility] [address] [place] [address] Feb, Chronic GERD K21.9 [facility] [address] [place] [address] January, Post herpetic neuralgia B02.29 [facility] [address] [place] [address] January, Lumbago with sciatica, left side M54.42 [facility] [address] [place] [address] January, [facility] [address] [place] [address] January, Lumbago of lumbar region with sciatica M 54.40 [facility] [address] [place] [address] January, Other chronic pain G89.29 and Lumbago wi th sciatica, left side M54.42 [facility] [address] [place] [address] January, Depression with anxiety F41.8 [facility] [address] [place] [address] January, Mixed hyperlipidemia E78.2 [facility] [address] [place] [address] January, Abscess of left groin L02.214 [facility] [address] [place] [address] Dec, Depression with anxiety F41.8 [facility] [address] [place] [address] Dec, Irregular periods N92.6 [facility] [address] [address] Nov, Left wrist pain M25.532 and Acute left a nkle pain M25.[address] [address] Nov, Post herpetic neuralgia B02.29 and Absce ss of left groin L02.[address] [address] Sep, Irregular periods N92.[address] [address] Sep, Mixed hyperlipidemia E78.2 ; Flank pain R10.9 and Post herpetic neuralgia B02.[address] [address] Aug, Lumbago of lumbar region with sciatica M 54.40 ; Chronic idiopathic constipation K59.09 ; Depression with anxiety F41.8 and Mixed hyperlipidemia E78.[address] [address] Aug, Other chronic pain G89.[address] [address] Aug, Reactive airway disease, mild persistent , uncomplicated J45.[address] [address] Aug, [address] [address] Aug, Cough R05 and Allergic contact dermatiti s due to other agents L23.[address] [address] Aug, [address] [address] Jul, Other chronic pain G89.[address] [address] 09 Jul, 2016 Upper respiratory tract infection, unspe cified type J06.9 ; Chronic GERD K21.9 ; Acute left ankle pain M25.572 and Lumbago of lumbar region with sciatica M54.40 [facility] [address] [place] [address] Jun, Other chronic pain G89.[address] [address] Jun, [address] [address] Jun, [address] [address] Jun, Chronic GERD K21.[address] [address] Jun, [address] [address] 30 May, 2016 Pain in right wrist M25.531 ; Left wrist pain M25.532 ; Acute left ankle pain M25.572 ; Thoracic spine pain M54.6 ; Lumbago with sciatica, left side M54.42 ; Other chronic pain G89.29 and Dysuria R30.[address] [address] May, Chronic GERD K21.[address] [address] 23 May, 2016 Chronic GERD K21.[address] [address] May, [address] [address] May, [address] [address] 16 May, [address] [address] 16 May, [address] [address] 16 May, 2016 Mixed hyperlipidemia E78.2 ; Fibromyalgi a M79.7 ; Depression with anxiety F41.8 ; Lumbago of lumbar region with sciatica M54.40 ; Encounter to establish care Z76.89 ; Chronic GERD K21.9 ; History of gestational diabetes Z86.32 ; Chronic idiopathic constipation K59.09 ; Thyroid disorder screen Z13.29 and Need for influenza vaccination Z23 [facility] [address] [place], [place] [address] Apr, Gestational diabetes O24.419 [facility] [address] [place], [place] [address] Feb, Gestational diabetes O24.419 IMMUNIZATIONS Vaccine Route Administration Date Status TWINRIX IM Intramuscular Jul 30, 2018 Administered SOCIAL HISTORY Never Assessed REASON FOR VISIT pap smear PLAN OF CARE Activity Details Follow Up 3 Months, prn Reason: Pending Test Wet Prep w/ Reflex to Tricho penny Culture 53331 Pending Test Chlamydia / Gonorrhea (GC), ANGELA 38668 17545 Pending Test Pap Lb, rfx HPV ASCU Pending Test Ultrasound : Pelvic Non/OB Future/Pending [...] History Fused L ankle 09/2017 Hospitalization History [facility]- Hyperglycemia and February 2016 Hospitalization History Ankle surgery 09/2017
--- OUTSIDE RECORDS SUMMARY | 2020-03-15 21:25 | XMS REPORT ---
Author Author Solange Sultana [facility] Address [address] [place], [place] [address] Care Team Providers Care Glass Or Mirror Inspector Name Role Phone Kodi LoweryPhyllisFelisha Unavailable PROBLEMS Type Condition ICD9-CM Code VHF50-SS Code Onset Dates Condition S tatus SNOMED Code Problem Lumbago with sciatica, left side M54.42 Active 477494392 Problem Acute left ankle pain M25.572 Active 58174351078380 Problem Thoracic spine pain M54.6 Active 128202072 Problem Irregular periods N92.6 Active 80 193547 Problem Gestational diabetes O24.419 Active 14630598 Problem Post herpetic neuralgia B02.29 Active 6432075 Assessment Irregular periods N92.6 12 Sep, 2016 Active 20373990 Problem Pain in right wrist M25.531 Active 27563308 Problem Left wrist pain M25.532 Active 5660 8008 Problem Reactive airway disease, mild persistent, uncomplicated J45.30 Active 720438641234 Problem Plantar fasciitis M72.2 Active 20 7099316 Problem Chronic idiopathic constipation K59.09 Active 66587636 Problem History of gestational diabetes Z86.32 Active 681656199 Problem Prediabetes R73.09 Active 24028064 2 Problem Thyroid disorder screen Z13.29 Active 885949158 Problem Depression with anxiety F41.8 Active 507785861 Problem Fibromyalgia M79.7 Active 8616956 05 Problem Chronic GERD K21.9 Active 2530225 09 Problem Mixed hyperlipidemia E78.2 Active 386265926 Problem Lumbago of lumbar region with sciatica M54.40 Active 02875557 Problem Other chronic pain G89.29 Active 8 8734872 ALLERGIES Unknown Allergies SOCIAL HISTORY No smoking Hx information available PLAN OF CARE VITAL SIGNS MEDICATIONS Medication Instructions Dosage Frequency Start Date End Date Duration S tatus Fiber Active Gabapentin 300 MG Orally at hs 2 capsules May, Active Protonix 20 MG Orally Once a day 1 tablet 24h May, Active Benefiber - Orally Two times daily 2 May, 30 days Active Cyclobenzaprine HCl 10 MG Orally Three times a day 1 tablet 8h May, 30 day(s) Active Colace 100 MG Orally Once a day 1 capsule as needed 24h May, 30 day(s) Active Pravastatin Sodium 20 MG Orally qhs 1 tablet May, 30 day(s) Active Pantoprazole Sodium 40 MG Orally Once a day 1 tablet 24h Jul 30 day(s) Active Sertraline HCl 50 MG Orally Once a day 1 tablet 24h May, 30 day(s) Active Ventolin HFA 108 (90 Base) MCG/ACT Inhalation every 4 hrs 2 puffs a s needed 4h Aug, 30 days Active Bactrim DS 800-160 MG Orally Two times daily 1 tablet 11 2016 10 day(s) Active Mobic 15 MG Orally Once a day 1 tablet 24h Jul, 30 d ay(s) Active Nortriptyline HCl 25 MG Orally QHS 1 capsule May, 30 day(s) Active Lidocaine 5 % Externally Once a day 1 patch to intact skin remove after 12 hours 24h Aug, 30 days Active RESULTS No Results PROCEDURES Procedure Date Ordered Related Diagnosis Body Site Medroxyprogesterone inj Oct 05, 2016 THER/PROPH/DIAG INJ, SC/IM Oct 05, 2016 IMMUNIZATIONS Vaccine Route Administration Date Status Medroxyprogesterone (Depo-Provera) IM Intramuscular Oct 05 7 Administered
--- OUTSIDE RECORDS SUMMARY | 2020-03-15 21:26 | XMS REPORT ---
Author Author Solange Sultana Organization [employer] Address Unknown Phone Unavailable Care Team Providers Care Ophthalmic Lens Inspector Name Role Phone Felisha Sultana CP Unavailable Allergies No Known Allergies Problems Problem Type Condition Code Onset Dates Condition Statu s Problem Depression with anxiety F41.8 Acti ve Problem Mixed hyperlipidemia E78.2 Active Problem Fibromyalgia M79.7 Active Problem Pain in right wrist M25.531 Active Problem Left wrist pain M25.532 Active Problem Plantar fasciitis M72.2 Active Problem Lumbago with sciatica, left side M54.42 Active Problem Other chronic pain G89.29 Active Problem Acute left ankle pain M25.572 Active Problem Thoracic spine pain M54.6 Active Problem Gestational diabetes O24.419 Active Problem Chronic idiopathic constipation K59.09 Active Problem History of gestational diabetes Z86.32 Active Problem Prediabetes R73.09 Active Problem Chronic GERD K21.9 Active Problem Thyroid disorder screen Z13.29 Acti ve Problem Lumbago of lumbar region with sciatica M54.40 Active Medications No Known Medications Results No Known Results Summary Purpose [employer] Submission
--- OUTSIDE RECORDS SUMMARY | 2020-03-15 21:26 | XMS REPORT ---
Author Author Solange Sultana Organization [employer] Address Unknown Phone Unavailable Care Team Providers Care Orientation And Mobility Instructor Name Role Phone Felisha Sultana CP Unavailable [...] Active Problem Thoracic spine pain M54.6 Active Assessment Other chronic pain G89.29 Active Problem Gestational diabetes O24.419 Active Problem Chronic idiopathic constipation K59.09 Active Problem History of gestational diabetes Z86.32 Active Problem Prediabetes R73.09 Active Problem Chronic GERD K21.9 Active Problem Thyroid disorder screen Z13.29 Acti ve Problem Lumbago of lumbar region with sciatica M54.40 Active Medications Medication Code System Code Instructions Start Date End Date Status Dosage Gabapentin [facility] [address]-03 300 MG Orally 30 0mg daily x1 day then 300mg bid x 1 day then 300mg TID Jun 09, 2016 1 capsule Results No Known Results Summary Purpose [employer] Submission
--- OUTSIDE RECORDS SUMMARY | 2020-03-15 21:26 | XMS REPORT ---
Author Author Solange Sultana [facility] Address [address] [place], [place] [address] Care Team Providers Care Funeral Home Assistant Name Role Phone Kayy, Felisha Unavailable PROBLEMS Type Condition ICD9-CM Code AOS50-JP Code Onset Dates Condition S tatus SNOMED Code Problem Lumbago with sciatica, left side M54.42 Active 768556294 Problem Acute left ankle pain M25.572 Active 63746541440543 Problem Thoracic spine pain M54.6 Active 218512218 Problem Irregular periods N92.6 Active 80 427908 Problem Gestational diabetes O24.419 Active 91466909 Problem Post herpetic neuralgia B02.29 Active 2842165 Problem Pain in right wrist M25.531 Active 95950412 Problem Left wrist pain M25.532 Active 5660 8008 Problem Reactive airway disease, mild persistent, uncomplicated J45.30 Active 668710948259 Problem Plantar fasciitis M72.2 Active 20 3039637 Problem Chronic idiopathic constipation K59.09 Active 35798934 Problem History of gestational diabetes Z86.32 Active 556537352 Problem Prediabetes R73.09 Active 70779878 2 Problem Thyroid disorder screen Z13.29 Active 007018355 Problem Depression with anxiety F41.8 Active 959632418 Problem Fibromyalgia M79.7 Active 5696917 05 Problem Chronic GERD K21.9 Active 7981488 09 Problem Mixed hyperlipidemia E78.2 Active 382008354 Problem Lumbago of lumbar region with sciatica M54.40 Active 46501725 Problem Other chronic pain G89.29 Active 8 1403345 ALLERGIES Unknown Allergies SOCIAL HISTORY No smoking Hx information available PLAN OF CARE VITAL SIGNS MEDICATIONS Unknown Medications RESULTS No Results PROCEDURES No Known procedures IMMUNIZATIONS No Known Immunizations
--- OUTSIDE RECORDS SUMMARY | 2020-03-15 21:26 | XMS REPORT ---
Author Solange Pimentel [facility] [employer] Address Unknown Phone Unavailable Care Team Providers Care Certified Breastfeeding Educator Name Role Phone Zahida Garcia Unavailable Allergies No Known Allergies Problems Problem Type Condition Code Onset Dates Condition Statu s Assessment Gestational diabetes O24.419 Active Problem Gestational diabetes O24.419 Active Medications Medication Code System Code Instructions Start Date End Date Status Dosage Omeprazole [facility] [address]-56 40 MG Orally Once a day 1 capsule 1 [facility] [address] 30-0.975-200 MG Orally not defined Levemir [facility] [address]-23 100 UNIT/ML Subcutaneous BID 15 units Fiber NDC 0 Orally not defined Humalog [facility] [address]-11 100 UNIT/ML Subcutaneous TID 10 units Procedures Procedure Coding System Code Date Billed by outside source CPT-4 NOBLL Apr 26, 2016 Results No Known Results Summary Purpose [employer] Submission
--- OUTSIDE RECORDS SUMMARY | 2020-03-15 21:26 | XMS REPORT ---
Author Author Solange Sultana Organization [employer] Address Unknown Phone Unavailable Care Team Providers Care Professor Of Religious Studies Name Role Phone Felisha Sultana CP Unavailable Allergies No Known Allergies Problems Problem Type Condition Code Onset Dates Condition Statu s Problem Gestational diabetes O24.419 Active Problem Thyroid disorder screen Z13.29 Acti ve Problem Prediabetes R73.09 Active Problem Fibromyalgia M79.7 Active Problem Depression with anxiety F41.8 Acti ve Problem Mixed hyperlipidemia E78.2 Active Problem History of gestational diabetes Z86.32 Active Problem Chronic idiopathic constipation K59.09 Active Problem Lumbago of lumbar region with sciatica M54.40 Active Problem Chronic GERD K21.9 Active Medications No Known Medications Results No Known Results Summary Purpose [employer] Submission
--- OUTSIDE RECORDS SUMMARY | 2020-03-15 21:26 | XMS REPORT ---
Author Author Solange Sultana Organization [employer] Address Unknown Phone Unavailable Care Team Providers Care Jailor Name Role Phone Felisha Sultana CP Unavailable Allergies No Known Allergies Problems Problem Type Condition Code Onset Dates Condition Statu s Problem Gestational diabetes O24.419 Active Problem Thyroid disorder screen Z13.29 Acti ve Problem Prediabetes R73.09 Active Assessment Chronic GERD K21.9 Active Problem Fibromyalgia M79.7 Active Problem Depression with anxiety F41.8 Acti ve Problem Mixed hyperlipidemia E78.2 Active Problem History of gestational diabetes Z86.32 Active Problem Chronic idiopathic constipation K59.09 Active Problem Lumbago of lumbar region with sciatica M54.40 Active Problem Chronic GERD K21.9 Active Medications Medication Code System Code Instructions Start Date End Date Status Dosage Dexilant [facility] [address]-05 30 MG Orally Once a day Jun 09, 2016 1 capsule Results No Known Results Summary Purpose eClinicalWorks Submission
--- OUTSIDE RECORDS SUMMARY | 2020-03-15 21:26 | XMS REPORT ---
Author Author Solange Sultana Organization [employer] Address Unknown Phone Unavailable Care Team Providers Care Group Fitness Assistant Department Head Name Role Phone Felisha Sultana CP Unavailable [...] Instructions Start Date End Date Status Dosage Colace [facility] [address]-75 100 MG Orally Once a day Jun 09, 2016 1 capsule as needed Benefiber [facility] [address]-07 - Orally Two times daily Jun 09, 2016 2 Nortriptyline HCl [facility] [address]-37 25 MG Orally QHS Jun 09, 2016 1 capsule Dexilant [facility] [address]-80 30 MG Orally Once a day Jun 09, 2016 1 capsule Ibuprofen [facility] [address]-72 800 MG Orally Three times a day Jun 09, 2016 1 tablet 1 [facility] 67766-[address]69 30-0.975-200 MG Orally Once daily 1 Fiber NDC 0 Orally not defined Sertraline HCl [facility] [address]-06 50 MG Orally Once a day Jun 09 16 1 tablet Gabapentin [facility] [address]-28 300 MG Orally 30 0mg daily x1 day then 300mg bid x 1 day then 300mg TID Jun 09, 2016 1 capsule Pravastatin Sodium [facility] [address]-81 20 MG Orally qhs Jun 09, 2016 1 tablet Cyclobenzaprine HCl [facility] [address]-49 10 MG Orally Three t imes a day Jun 09, 2016 1 tablet Results No Known Results Summary Purpose eClinicalWorks Submission
--- OUTSIDE RECORDS SUMMARY | 2020-03-15 21:26 | XMS REPORT ---
Author Author Solange Sultana Organization [employer] Address Unknown Phone Unavailable Care Team Providers Care Health Education Director Name Role Phone Felisha Sultana CP Unavailable [...] Start Date End Date Status Dosage Gabapentin [facility] [address]-39 300 MG Orally 30 0mg daily x1 day then 300mg bid x 1 day then 300mg TID Jun 09, 2016 1 capsule Fiber NDC 0 Orally not defined Ibuprofen [facility] [address]-77 800 MG Orally Three times a day Jun 09, 2016 1 tablet Nortriptyline HCl [facility] [address]-40 25 MG Orally QHS Jun 09, 2016 1 capsule Benefiber [facility] [address]-42 - Orally Two times daily Jun 09, 2016 2 Dexilant [facility] [address]-43 30 MG Orally Once a day Jun 09, 2016 1 capsule Sertraline HCl [facility] [address]-99 50 MG Orally Once a day Jun 09 1 tablet Cyclobenzaprine HCl [facility] [address]-42 10 MG Orally Three t imes a day Jun 09, 2016 1 tablet Pravastatin Sodium [facility] [address]-78 20 MG Orally qhs Jun 09, 2016 1 tablet Protonix [facility] [address]-32 20 MG Orally Once a day Jun 22, 2016 1 tablet 1 [facility] [address]29-[address]797 30-0.975-200 MG Orally Once daily [facility] [address]-69 100 MG Orally Once a day Jun 09, 2016 1 capsule as needed Results No Known Results Summary Purpose eClinicalWorks Submission
--- OUTSIDE RECORDS SUMMARY | 2020-03-15 21:26 | XMS REPORT ---
Author Author Solange Sultana Organization [employer] Address Unknown Phone Unavailable Care Team Providers Care Cardiovascular Invasive Specialist Name Role Phone Felisha Sultana CP Unavailable Allergies No Known Allergies Problems Problem Type Condition Code Onset Dates Condition Statu s Problem Fibromyalgia M79.7 Active Problem Other chronic pain G89.29 Active Problem Mixed hyperlipidemia E78.2 Active Problem Plantar fasciitis M72.2 Active Problem Pain in right wrist M25.531 Active Problem Reactive airway disease, mild persistent, uncomplicate d J45.30 Active Problem Thoracic spine pain M54.6 Active Problem Lumbago with sciatica, left side M54.42 Active Problem Left wrist pain M25.532 Active Problem Acute left ankle pain M25.572 Active Problem Gestational diabetes O24.419 Active Problem Prediabetes R73.09 Active Assessment Reactive airway disease, mild persistent, uncomplicate d J45.30 Active Problem History of gestational diabetes Z86.32 Active Problem Chronic GERD K21.9 Active Problem Thyroid disorder screen Z13.29 Acti ve Problem Lumbago of lumbar region with sciatica M54.40 Active Problem Chronic idiopathic constipation K59.09 Active Problem Depression with anxiety F41.8 Acti ve Medications Medication Code System Code Instructions Start Date End Date Status Dosage Ventolin HFA [facility] [address]-12 108 (90 Base) MCG/ACT Inhal ation every 4 hrs Sep 01, 2016 2 puffs as needed Results No Known Results Summary Purpose eClinicalWorks Submission
--- OUTSIDE RECORDS SUMMARY | 2020-03-15 21:26 | XMS REPORT ---
Author Author Solange Sultana [facility] Address [address], [place] [address] Care Team Providers Care Boxing Instructor Name Role Phone [place], Felisha Unavailable PROBLEMS Type Condition ICD9-CM Code [id number] Code Onset Dates Condition S tatus SNOMED Code Problem Lumbago with sciatica, left side M54.42 Active 932622257 Problem Acute left ankle pain M25.572 Active 41271269313105 Problem Thoracic spine pain M54.6 Active 036531551 Problem Irregular periods N92.6 Active 80 212688 Problem Gestational diabetes O24.419 Active 64723406 Problem Post herpetic neuralgia B02.29 Active 3811598 Problem Pain in right wrist M25.531 Active 79283616 Problem Left wrist pain M25.532 Active 5660 8008 Problem Reactive airway disease, mild persistent, uncomplicated J45.30 Active 049462857686 Problem Plantar fasciitis M72.2 Active 20 9699550 Problem Chronic idiopathic constipation K59.09 Active 27468041 Problem History of gestational diabetes Z86.32 Active 322750500 Problem Prediabetes R73.09 Active 93352727 2 Problem Thyroid disorder screen Z13.29 Active 251281227 Problem Depression with anxiety F41.8 Active 464109551 Problem Fibromyalgia M79.7 Active 3434019 05 Problem Chronic GERD K21.9 Active 3922833 09 Problem Mixed hyperlipidemia E78.2 Active 660216299 Problem Lumbago of lumbar region with sciatica M54.40 Active 85698383 Problem Other chronic pain G89.29 Active 8 5706788 ALLERGIES Unknown Allergies SOCIAL HISTORY No smoking Hx information available PLAN OF CARE VITAL SIGNS MEDICATIONS Medication Instructions Dosage Frequency Start Date End Date Duration S tatus Sertraline HCl 50 MG Orally Once a day 1 tablet 24h May, 30 day(s) Active Benefiber - Orally Two times daily 2 May, 30 days Active Fiber Active Gabapentin 600 MG Orally at hs 1 capsule May, 30 days Active Pravastatin Sodium 20 MG Orally qhs 1 tablet May, 90 days Active ProAir HFA 108 (90 Base) MCG/ACT Inhalation every 4 hrs 2 puffs as needed 4h Aug, 30 days Active Colace 100 MG Orally Once a day 1 capsule as needed 24h May, 30 day(s) Active Lidocaine 5 % Apply 2.5 grams three times daily Aug, 30 days Active Nortriptyline HCl 25 MG Orally QHS 1 capsule May, 30 day(s) Active Mobic 15 MG Orally Once a day 1 tablet 24h Jul, 90 d ays Active Cyclobenzaprine HCl 10 MG Orally Three times a day 1 tablet 8h May, 30 day(s) Active Protonix 20 MG Orally Once a day 1 tablet 24h May, 9 0 days Active Pantoprazole Sodium 40 MG Orally Once a day 1 tablet 24h Jul 30 day(s) Active RESULTS No Results PROCEDURES No Known procedures IMMUNIZATIONS No Known Immunizations
--- OUTSIDE RECORDS SUMMARY | 2020-03-15 21:26 | XMS REPORT ---
Author Author Solange Sultana Organization [employer] Address Unknown Phone Unavailable Care Team Providers Care Grounds Foreman Name Role Phone Felisha Sultana CP Unavailable [...]
--- OUTSIDE RECORDS SUMMARY | 2020-03-15 21:26 | XMS REPORT ---
Author Author Solange Sultana [facility] Address [address], [place] [address] Care Team Providers Care Cooking Chef Name Role Phone Kayy, Felisha Unavailable PROBLEMS Type Condition ICD9-CM Code [id number] Code Onset Dates Condition S tatus SNOMED Code Problem Lumbago with sciatica, left side M54.42 Active 196095389 Problem Acute left ankle pain M25.572 Active 39416017147231 Problem Thoracic spine pain M54.6 Active 588418168 Problem Irregular periods N92.6 Active 80 900366 Problem Gestational diabetes O24.419 Active 69746478 Problem Post herpetic neuralgia B02.29 Active 7895663 Problem Pain in right wrist M25.531 Active 10938304 Problem Left wrist pain M25.532 Active 5660 8008 Problem Reactive airway disease, mild persistent, uncomplicated J45.30 Active 386679266988 Problem Plantar fasciitis M72.2 Active 20 8372525 Problem Chronic idiopathic constipation K59.09 Active 90871478 Problem History of gestational diabetes Z86.32 Active 505595846 Problem Prediabetes R73.09 Active 14652762 2 Problem Thyroid disorder screen Z13.29 Active 779782932 Problem Depression with anxiety F41.8 Active 028387151 Problem Fibromyalgia M79.7 Active 9908747 05 Problem Chronic GERD K21.9 Active 2914144 09 Problem Mixed hyperlipidemia E78.2 Active 235627853 Problem Lumbago of lumbar region with sciatica M54.40 Active 02252151 Problem Other chronic pain G89.29 Active 8 0180718 ALLERGIES Unknown Allergies SOCIAL HISTORY No smoking Hx information available PLAN OF CARE VITAL SIGNS MEDICATIONS Unknown Medications RESULTS No Results PROCEDURES No Known procedures IMMUNIZATIONS No Known Immunizations
--- OUTSIDE RECORDS SUMMARY | 2020-03-15 21:26 | XMS REPORT ---
Author Author Solange Sultana [facility] Address [address] [place], [place] [address] Care Team Providers Care Respiratory Therapy Aide Name Role Phone Kayy, Felisha Unavailable PROBLEMS Type Condition ICD9-CM Code [id number] Code Onset Dates Condition S tatus SNOMED Code Problem Lumbago with sciatica, left side M54.42 Active 400281259 Problem Acute left ankle pain M25.572 Active 22381960455248 Problem Thoracic spine pain M54.6 Active 316780203 Problem Irregular periods N92.6 Active 80 257202 Problem Gestational diabetes O24.419 Active 64539470 Problem Post herpetic neuralgia B02.29 Active 1845860 Problem Pain in right wrist M25.531 Active 71623600 Problem Left wrist pain M25.532 Active 5660 8008 Problem Reactive airway disease, mild persistent, uncomplicated J45.30 Active 721052890331 Problem Plantar fasciitis M72.2 Active 20 7038419 Problem Chronic idiopathic constipation K59.09 Active 26351333 Problem History of gestational diabetes Z86.32 Active 321131830 Problem Prediabetes R73.09 Active 13637089 2 Problem Thyroid disorder screen Z13.29 Active 085664214 Problem Depression with anxiety F41.8 Active 784814812 Problem Fibromyalgia M79.7 Active 1552726 05 Problem Chronic GERD K21.9 Active 9958928 09 Problem Mixed hyperlipidemia E78.2 Active 180224951 Problem Lumbago of lumbar region with sciatica M54.40 Active 19762362 Problem Other chronic pain G89.29 Active 8 9819442 ALLERGIES Unknown Allergies SOCIAL HISTORY No smoking Hx information available PLAN OF CARE VITAL SIGNS MEDICATIONS Unknown Medications RESULTS No Results PROCEDURES No Known procedures IMMUNIZATIONS No Known Immunizations
--- OUTSIDE RECORDS SUMMARY | 2020-03-15 21:26 | XMS REPORT ---
Author Author Solange Sultana [facility] Address [address] [place], [place] [address] Care Team Providers Care Finance Intern Name Role Phone Felisha Sultana Unavailable PROBLEMS Type Condition ICD9-CM Code [id number] Code Onset Dates Condition S tatus SNOMED Code Problem Lumbago with sciatica, left side M54.42 Active 996764268 Problem Acute left ankle pain M25.572 Active 31207785647159 Problem Thoracic spine pain M54.6 Active 908822101 Problem Irregular periods N92.6 Active 80 080707 Problem Gestational diabetes O24.419 Active 65002195 Problem Post herpetic neuralgia B02.29 Active 9138809 Assessment Lumbago with sciatica, left side M54.42 January Active 569978988 Problem Pain in right wrist M25.531 Active 18816867 Problem Left wrist pain M25.532 Active 5660 8008 Problem Reactive airway disease, mild persistent, uncomplicated J45.30 Active 392484753800 Problem Plantar fasciitis M72.2 Active 20 9960567 Problem Chronic idiopathic constipation K59.09 Active 59894913 Problem History of gestational diabetes Z86.32 Active 271765053 Problem Prediabetes R73.09 Active 29856364 2 Problem Thyroid disorder screen Z13.29 Active 082828375 Problem Depression with anxiety F41.8 Active 450541448 Problem Fibromyalgia M79.7 Active 3886637 05 Problem Chronic GERD K21.9 Active 8254283 09 Problem Mixed hyperlipidemia E78.2 Active 604620373 Problem Lumbago of lumbar region with sciatica M54.40 Active 70540914 Problem Other chronic pain G89.29 Active 8 6648125 ALLERGIES Unknown Allergies SOCIAL HISTORY No smoking Hx information available PLAN OF CARE VITAL SIGNS MEDICATIONS Medication Instructions Dosage Frequency Start Date End Date Duration S tatus Gabapentin 300 MG Orally at hs 2 capsules 16 May, 2016 3 0 days Active RESULTS No Results PROCEDURES No Known procedures IMMUNIZATIONS No Known Immunizations
--- OUTSIDE RECORDS SUMMARY | 2020-03-15 21:26 | XMS REPORT ---
Author Author Solange Sultana Organization [employer] Address Unknown Phone Unavailable Care Team Providers Care Specialty Development Consultant Name Role Phone Felisha Sultana CP Unavailable [...] Problem Thoracic spine pain M54.6 Active Assessment Chronic GERD K21.9 Active Problem Gestational diabetes O24.419 Active Problem Chronic idiopathic constipation K59.09 Active Problem History of gestational diabetes Z86.32 Active Problem Prediabetes R73.09 Active Problem Chronic GERD K21.9 Active Problem Thyroid disorder screen Z13.29 Acti ve Problem Lumbago of lumbar region with sciatica M54.40 Active Medications Medication Code System Code Instructions Start Date End Date Status Dosage Dexilant [facility] [address]-68 30 MG Orally Once a day Jun 09, 2016 1 capsule Results No Known Results Summary Purpose eClinicalWorks Submission
--- OUTSIDE RECORDS SUMMARY | 2020-03-15 21:26 | XMS REPORT ---
Author Author Solange Sultana Organization [employer] Address Unknown Phone Unavailable Care Team Providers Care Instrument Checker Name Role Phone Felisha Sultana CP Unavailable Allergies, Adverse Reactions, Alerts Substance Reaction Event Type Oxycodone HCl vomitting Drug Allergy Hydrocodone-Acetaminophen vomitting Drug Allergy Problems Problem Type Condition Code Onset Dates [...] Problem Thoracic spine pain M54.6 Active Assessment Cough R05 Active Problem Gestational diabetes O24.419 Active Assessment Allergic contact dermatitis due to other agents L23.89 Active Problem Chronic idiopathic constipation K59.09 Active Problem History of gestational diabetes Z86.32 Active Problem Prediabetes R73.09 Active Problem Chronic GERD K21.9 Active Problem Thyroid disorder screen Z13.29 Acti ve Problem Lumbago of lumbar region with sciatica M54.40 Active Medications Medication Code System Code Instructions Start Date End Date Status Dosage Lidocaine [facility] [address]-61 5 % Externally Once a day Aug 29, 2016 1 patch to intact skin remove after 12 hours Gabapentin [facility] [address]-59 300 MG Orally 30 0mg daily x1 day then 300mg bid x 1 day then 300mg TID Jun 09, 2016 1 capsule Fiber NDC 0 Orally not defined Sertraline HCl [facility] [address]-25 50 MG Orally Once a day Jun 09 16 1 tablet Triamcinolone Acetonide [facility] [address]-18 0.025 % External ly Twice a day Aug 30, 2016 1 application to aff ected area Pantoprazole Sodium [facility] [address]-09 40 MG Orally Once a day Jul 1 tablet Protonix [facility] [address]-68 20 MG Orally Once a day Jun 22, 2016 1 tablet Mobic [facility] [address]-86 15 MG Orally Once a day Aug 02, 2016 1 tablet Colace [facility] [address]-90 100 MG Orally Once a day Jun 09, 2016 1 capsule as needed Benefiber [facility] [address]-00 - Orally Two times daily Jun 09, 2016 2 Nortriptyline HCl [facility] [address]-58 25 MG Orally QHS Jun 09, 2016 1 capsule Dexilant [facility] [address]-50 30 MG Orally Once a day Jun 09, 2016 1 capsule ProAir HFA [facility] [address]-46 108 (90 Base) MCG/ACT Inhal ation every 4 hrs Aug 30, 2016 2 puffs as needed Pravastatin Sodium [facility] [address]-29 20 MG Orally qhs Jun 09, 2016 1 tablet Cyclobenzaprine HCl [facility] [address]-40 10 MG Orally Three t imes a day Jun 09, 2016 1 tablet Procedures Procedure Coding System Code Date Office Visit, Est Pt., Level 3 CPT-4 29059 D 2015 Vital Signs Date/Time: Aug 30, 2016 Temperature 97.0 F Weight 336 lbs Height 69 in Respiratory Rate 16 /min Cardiac Monitoring Heart Rate 77 /min Blood Pressure Diastolic 67 mm Hg Blood Pressure Systolic 116 mm Hg BMI 49.61 Index Oximetry 97 % Results Name Result Date Reference Range Unit Abnormali ty Flag PFT with DLCO Summary Purpose eClinicalWorks Submission
--- OUTSIDE RECORDS SUMMARY | 2020-03-15 21:26 | XMS REPORT ---
Author Author Solange Sultana [facility] Address [address] [place], [place] [address] Care Team Providers Care Medical Device Sales Name Role Phone Kodi LoweryPhyllisFelisha Unavailable PROBLEMS Type Condition ICD9-CM Code [id number] Code Onset Dates Condition S tatus SNOMED Code Problem Lumbago with sciatica, left side M54.42 Active 489688196 Problem Acute left ankle pain M25.572 Active 38631890179057 Problem Thoracic spine pain M54.6 Active 649538841 Problem Irregular periods N92.6 Active 80 889249 Problem Gestational diabetes O24.419 Active 02614089 Problem Post herpetic neuralgia B02.29 Active 4266296 Problem Pain in right wrist M25.531 Active 51641647 Problem Left wrist pain M25.532 Active 5660 8008 Problem Reactive airway disease, mild persistent, uncomplicated J45.30 Active 832963555366 Problem Plantar fasciitis M72.2 Active 20 2806743 Problem Chronic idiopathic constipation K59.09 Active 50379411 Problem History of gestational diabetes Z86.32 Active 697350635 Problem Prediabetes R73.09 Active 72506422 2 Problem Thyroid disorder screen Z13.29 Active 141267802 Problem Depression with anxiety F41.8 Active 179697607 Problem Fibromyalgia M79.7 Active 6183350 05 Problem Chronic GERD K21.9 Active 9949054 09 Problem Mixed hyperlipidemia E78.2 Active 193381716 Problem Lumbago of lumbar region with sciatica M54.40 Active 60535142 Problem Other chronic pain G89.29 Active 8 8051391 ALLERGIES Unknown Allergies SOCIAL HISTORY No smoking Hx information available PLAN OF CARE VITAL SIGNS MEDICATIONS Medication Instructions Dosage Frequency Start Date End Date Duration S tatus Benefiber - Orally Two times daily 2 May, 30 days Active Nortriptyline HCl 25 MG Orally QHS 1 capsule May, 30 day(s) Active Gabapentin 600 MG Orally at hs 1 capsule May, 30 days Active Pantoprazole Sodium 40 MG Orally Once a day 1 tablet 24h Jul 30 day(s) Active ProAir HFA 108 (90 Base) MCG/ACT Inhalation every 4 hrs 2 puffs as needed 4h Aug, 30 days Active Sertraline HCl 50 MG Orally Once a day 1 tablet 24h May, 30 day(s) Active Protonix 20 MG Orally Once a day 1 tablet 24h May, 3 0 days Active Cyclobenzaprine HCl 10 MG Orally Three times a day 1 tablet 8h May, 30 day(s) Active Fiber Active Mobic 15 MG Orally Once a day 1 tablet 24h Jul, 30 d ay(s) Active Pravastatin Sodium 20 MG Orally qhs 1 tablet May, 90 days Active Colace 100 MG Orally Once a day 1 capsule as needed 24h May, 30 day(s) Active Lidocaine 5 % Externally Once a day 1 patch to intact skin remove after 12 hours 24h Aug, 30 days Active RESULTS No Results PROCEDURES No Known procedures IMMUNIZATIONS No Known Immunizations
--- OUTSIDE RECORDS SUMMARY | 2020-03-15 21:26 | XMS REPORT ---
Author Author Soalnge Sultana [facility] Address [address] [place], [place] [address] Care Team Providers Care Metallurgical Or Materials Technician Name Role Phone Kdoi LoweryPhyllisFelisha Unavailable PROBLEMS Type Condition ICD9-CM Code XUT56-HD Code Onset Dates Condition S tatus SNOMED Code Problem Mixed hyperlipidemia E78.2 Active 995722823 Problem Lumbago with sciatica, left side M54.42 Active 985582028 Problem Other chronic pain G89.29 Active 8 3796440 Problem Reactive airway disease, mild persistent, uncomplicated J45.30 Active 466748894999 Problem Plantar fasciitis M72.2 Active 20 8289343 Problem Acute left ankle pain M25.572 Active 88764839040231 Problem Thoracic spine pain M54.6 Active 943308967 Problem Pain in right wrist M25.531 Active 59090091 Problem Left wrist pain M25.532 Active 5660 8008 Problem Prediabetes R73.09 Active 71009195 2 Problem Thyroid disorder screen Z13.29 Active 938519770 Assessment Lumbago of lumbar region with sciatica M54.40 Aug, Active 70311014 Problem Gestational diabetes O24.419 Active 32614134 Problem Chronic GERD K21.9 Active 4823571 09 Problem Lumbago of lumbar region with sciatica M54.40 Active 18948993 Problem Chronic idiopathic constipation K59.09 Active 64730178 Problem Depression with anxiety F41.8 Active 470318875 Problem History of gestational diabetes Z86.32 Active 347798628 Problem Fibromyalgia M79.7 Active 6352732 05 ALLERGIES Unknown Allergies SOCIAL HISTORY No smoking Hx information available PLAN OF CARE VITAL SIGNS MEDICATIONS Medication Instructions Dosage Frequency Start Date End Date Duration S tatus Pravastatin Sodium 20 MG Orally qhs 1 tablet May, 30 day(s) Active Colace 100 MG Orally Once a day 1 capsule as needed 24h May, 30 day(s) Active Nortriptyline HCl 25 MG Orally QHS 1 capsule May, 30 day(s) Active Sertraline HCl 50 MG Orally Once a day 1 tablet 24h May, 30 day(s) Active Cyclobenzaprine HCl 10 MG Orally Three times a day 1 tablet 8h May, 30 day(s) Active RESULTS No Results PROCEDURES No Known procedures IMMUNIZATIONS No Known Immunizations
--- OUTSIDE RECORDS SUMMARY | 2020-03-15 21:26 | XMS REPORT ---
Author Author Solange Sultana Organization [employer] Address Unknown Phone Unavailable Care Team Providers Care Referral Clerk Name Role Phone Felisha Sultana CP Unavailable [...]
--- OUTSIDE RECORDS SUMMARY | 2020-03-15 21:26 | XMS REPORT ---
Author Author Solange Sultana Organization [employer] Address Unknown Phone Unavailable Care Team Providers Care Business Banking Sales Assistant Name Role Phone Felisha Sultana CP Unavailable Allergies, Adverse Reactions, Alerts Substance Reaction Event Type Oxycodone HCl vomitting Drug Allergy Hydrocodone-Acetaminophen vomitting Drug Allergy Problems Problem Type Condition Code Onset Dates Condition Statu s Problem Depression with anxiety F41.8 Acti ve Problem Mixed hyperlipidemia E78.2 Active Problem Fibromyalgia M79.7 Active Problem Pain in right wrist M25.531 Active Assessment Lumbago of lumbar region with sciatica M54.40 Active Problem Left wrist pain M25.532 Active Problem Plantar fasciitis M72.2 Active Problem Lumbago with sciatica, left side M54.42 Active Problem Other chronic pain G89.29 Active Problem Acute left ankle pain M25.572 Active Problem Thoracic spine pain M54.6 Active Assessment Upper respiratory tract infection, unspecified type J0 6.9 Active Problem Gestational diabetes O24.419 Active Assessment Acute left ankle pain M25.572 Active Assessment Chronic GERD K21.9 Active Problem Chronic idiopathic constipation K59.09 Active Problem History of gestational diabetes Z86.32 Active Problem Prediabetes R73.09 Active Problem Chronic GERD K21.9 Active Problem Thyroid disorder screen Z13.29 Acti ve Problem Lumbago of lumbar region with sciatica M54.40 Active Medications Medication Code System Code Instructions Start Date End Date Status Dosage Protonix [facility] [address]-87 20 MG Orally Once a day Jun 22, 2016 1 tablet Sertraline HCl [facility] [address]-85 50 MG Orally Once a day Jun 09 16 1 tablet Fiber NDC 0 Orally not defined Pravastatin Sodium [facility] [address]-50 20 MG Orally qhs Jun 09, 2016 1 tablet Nortriptyline HCl [facility] [address]-39 25 MG Orally QHS Jun 09, 2016 1 capsule Mobic [facility] [address]-79 15 MG Orally Once a day Aug 02, 2016 1 tablet Augmentin [facility] [address]-49 875-125 MG Orally every 12 hrs Aug 02 016 1 tablet Colace [facility] [address]-99 100 MG Orally Once a day Jun 09, 2016 1 capsule as needed Benefiber [facility] [address]-80 - Orally Two times daily Jun 09, 2016 2 Pantoprazole Sodium [facility] [address]-42 40 MG Orally Once a day Jul 1 tablet Cyclobenzaprine HCl [facility] [address]-71 10 MG Orally Three t imes a day Jun 09, 2016 1 tablet Dexilant [facility] [address]-06 30 MG Orally Once a day Jun 09, 2016 1 capsule Gabapentin [facility] [address]-20 300 MG Orally 30 0mg daily x1 day then 300mg bid x 1 day then 300mg TID Jun 09, 2016 1 capsule Procedures Procedure Coding System Code Date Office Visit, Est Pt., Level 3 CPT-4 26922 N 2015 Vital Signs Date/Time: Aug 02, 2016 Temperature 97.3 F Weight 326 lbs Height 69 in Respiratory Rate 16 /min Cardiac Monitoring Heart Rate 77 /min Blood Pressure Diastolic 68 mm Hg Blood Pressure Systolic 125 mm Hg BMI 48.14 Index Oximetry 97 % Results No Known Results Summary Purpose [employer] Submission
--- OUTSIDE RECORDS SUMMARY | 2020-03-15 21:26 | XMS REPORT ---
Author Author Solange Sultana Organization [employer] Address Unknown Phone Unavailable Care Team Providers Care Piping Engineer Name Role Phone Felisha Sultana CP Unavailable [...]
--- OUTSIDE RECORDS SUMMARY | 2020-03-15 21:26 | XMS REPORT ---
Author Author Solange Sultana [facility] Address [address], [place] [id number] Care Team Providers Care Bush And Vine Fruit Crop Farmer Name Role Phone Phyllis Sultanayla Unavailable PROBLEMS Type Condition ICD9-CM Code [id number] Code Onset Dates Condition S tatus SNOMED Code Problem Lumbago with sciatica, left side M54.42 Active 501298825 Problem Acute left ankle pain M25.572 Active 63964301501702 Problem Thoracic spine pain M54.6 Active 778664740 Problem Irregular periods N92.6 Active 80 912579 Problem Gestational diabetes O24.419 Active 52073072 Problem Post herpetic neuralgia B02.29 Active 1549560 Assessment Other chronic pain G89.29 January, Active 05257073 Problem Pain in right wrist M25.531 Active 10208904 Problem Left wrist pain M25.532 Active 5660 8008 Problem Reactive airway disease, mild persistent, uncomplicated J45.30 Active 028642324639 Problem Plantar fasciitis M72.2 Active 20 1713228 Problem Chronic idiopathic constipation K59.09 Active 35846835 Problem History of gestational diabetes Z86.32 Active 700635048 Problem Prediabetes R73.09 Active 68479883 2 Problem Thyroid disorder screen Z13.29 Active 779325085 Problem Depression with anxiety F41.8 Active 799850937 Problem Fibromyalgia M79.7 Active 1535814 05 Problem Chronic GERD K21.9 Active 3771403 09 Problem Mixed hyperlipidemia E78.2 Active 904437470 Problem Lumbago of lumbar region with sciatica M54.40 Active 73212198 Problem Other chronic pain G89.29 Active 8 1821531 ALLERGIES Unknown Allergies SOCIAL HISTORY No smoking Hx information available PLAN OF CARE VITAL SIGNS MEDICATIONS Medication Instructions Dosage Frequency Start Date End Date Duration S tatus Gabapentin 300 MG Orally at hs 2 capsules 16 May, 2016 3 0 days Active RESULTS No Results PROCEDURES No Known procedures IMMUNIZATIONS No Known Immunizations
--- OUTSIDE RECORDS SUMMARY | 2020-03-15 21:26 | XMS REPORT ---
Author Author Solange Sultana [facility] Address [address] [place], [place] [id number] Care Team Providers Care Lab Engineer Name Role Phone Phyllis Sultanayla Unavailable PROBLEMS Type Condition ICD9-CM Code [id number] Code Onset Dates Condition S tatus SNOMED Code Problem Lumbago with sciatica, left side M54.42 Active 105136923 Problem Acute left ankle pain M25.572 Active 39869946876918 Problem Thoracic spine pain M54.6 Active 652689411 Problem Irregular periods N92.6 Active 80 590945 Problem Gestational diabetes O24.419 Active 48711949 Problem Post herpetic neuralgia B02.29 Active 0537589 Problem Pain in right wrist M25.531 Active 20902411 Problem Left wrist pain M25.532 Active 5660 8008 Problem Reactive airway disease, mild persistent, uncomplicated J45.30 Active 186484244176 Problem Plantar fasciitis M72.2 Active 20 5888866 Problem Chronic idiopathic constipation K59.09 Active 29913366 Problem History of gestational diabetes Z86.32 Active 871331923 Problem Prediabetes R73.09 Active 49506114 2 Problem Thyroid disorder screen Z13.29 Active 929202445 Problem Depression with anxiety F41.8 Active 132777495 Problem Fibromyalgia M79.7 Active 3437188 05 Problem Chronic GERD K21.9 Active 1348283 09 Problem Mixed hyperlipidemia E78.2 Active 642967713 Problem Lumbago of lumbar region with sciatica M54.40 Active 13052192 Problem Other chronic pain G89.29 Active 8 5613344 ALLERGIES Unknown Allergies SOCIAL HISTORY No smoking Hx information available PLAN OF CARE VITAL SIGNS MEDICATIONS Medication Instructions Dosage Frequency Start Date End Date Duration S tatus Pantoprazole Sodium 40 MG Orally Once a day 1 tablet 24h Jul 30 day(s) Active RESULTS No Results PROCEDURES No Known procedures IMMUNIZATIONS No Known Immunizations
--- OUTSIDE RECORDS SUMMARY | 2020-03-15 21:26 | XMS REPORT ---
Author Author Solange Sultana [facility] Address [address] [place], [place] [id number] Care Team Providers Care Machine Strap Buckler Name Role Phone Kayy, Felisha Unavailable PROBLEMS Type Condition ICD9-CM Code [id number] Code Onset Dates Condition S tatus SNOMED Code Problem Lumbago with sciatica, left side M54.42 Active 706601451 Problem Acute left ankle pain M25.572 Active 67671371017473 Problem Thoracic spine pain M54.6 Active 081490337 Problem Irregular periods N92.6 Active 80 247307 Problem Gestational diabetes O24.419 Active 49724152 Problem Post herpetic neuralgia B02.29 Active 6759812 Problem Pain in right wrist M25.531 Active 41857141 Problem Left wrist pain M25.532 Active 5660 8008 Problem Reactive airway disease, mild persistent, uncomplicated J45.30 Active 748164822019 Problem Plantar fasciitis M72.2 Active 20 1220381 Problem Chronic idiopathic constipation K59.09 Active 23017435 Problem History of gestational diabetes Z86.32 Active 313620059 Problem Prediabetes R73.09 Active 34562188 2 Problem Thyroid disorder screen Z13.29 Active 194723010 Problem Depression with anxiety F41.8 Active 504960104 Problem Fibromyalgia M79.7 Active 4177892 05 Problem Chronic GERD K21.9 Active 4597806 09 Problem Mixed hyperlipidemia E78.2 Active 948030575 Problem Lumbago of lumbar region with sciatica M54.40 Active 09648050 Problem Other chronic pain G89.29 Active 8 0484535 ALLERGIES Unknown Allergies SOCIAL HISTORY No smoking Hx information available PLAN OF CARE VITAL SIGNS MEDICATIONS Unknown Medications RESULTS No Results PROCEDURES No Known procedures IMMUNIZATIONS No Known Immunizations
--- OUTSIDE RECORDS SUMMARY | 2020-03-15 21:26 | XMS REPORT ---
Author Author Solange Sultana [facility] Address [address] [place], [place] [address] Care Team Providers Care College President Name Role Phone Kayy, Felisha Unavailable PROBLEMS Type Condition ICD9-CM Code [id number] Code Onset Dates Condition S tatus SNOMED Code Problem Lumbago with sciatica, left side M54.42 Active 485341676 Problem Acute left ankle pain M25.572 Active 38095099554033 Problem Thoracic spine pain M54.6 Active 980448448 Problem Irregular periods N92.6 Active 80 714547 Problem Gestational diabetes O24.419 Active 65012126 Problem Post herpetic neuralgia B02.29 Active 6528185 Problem Pain in right wrist M25.531 Active 84690810 Problem Left wrist pain M25.532 Active 5660 8008 Problem Reactive airway disease, mild persistent, uncomplicated J45.30 Active 028267791724 Problem Plantar fasciitis M72.2 Active 20 9947011 Problem Chronic idiopathic constipation K59.09 Active 96560034 Problem History of gestational diabetes Z86.32 Active 247558828 Problem Prediabetes R73.09 Active 95308749 2 Problem Thyroid disorder screen Z13.29 Active 538159764 Problem Depression with anxiety F41.8 Active 786119562 Problem Fibromyalgia M79.7 Active 0928733 05 Problem Chronic GERD K21.9 Active 5958328 09 Problem Mixed hyperlipidemia E78.2 Active 157686711 Problem Lumbago of lumbar region with sciatica M54.40 Active 23069155 Problem Other chronic pain G89.29 Active 8 5052477 ALLERGIES Unknown Allergies SOCIAL HISTORY No smoking Hx information available PLAN OF CARE VITAL SIGNS MEDICATIONS Medication Instructions Dosage Frequency Start Date End Date Duration S tatus Pravastatin Sodium 20 MG Orally qhs 1 tablet May, 90 days Active Mobic 15 MG Orally Once a day 1 tablet 24h Jul, 30 d ay(s) Active ProAir HFA 108 (90 Base) MCG/ACT Inhalation every 4 hrs 2 puffs as needed 4h Aug, 30 days Active RESULTS No Results PROCEDURES No Known procedures IMMUNIZATIONS No Known Immunizations
--- OUTSIDE RECORDS SUMMARY | 2020-03-15 21:27 | XMS REPORT ---
Author Author Solange Sultana Organization [employer] Address Unknown Phone Unavailable Care Team Providers Care All Terrain Vehicle Technician Name Role Phone Felisha Sultana CP Unavailable Allergies, Adverse Reactions, Alerts Substance Reaction Event Type Oxycodone HCl vomitting Drug Allergy Hydrocodone-Acetaminophen vomitting Drug Allergy Problems Problem Type Condition Code Onset Dates Condition Statu s Problem Lumbago of lumbar region with sciatica M54.40 Active Problem Fibromyalgia M79.7 Active Problem Depression with anxiety F41.8 Acti ve Problem Left wrist pain M25.532 Active Assessment Lumbago with sciatica, left side M54.42 Active Problem Acute left ankle pain M25.572 Active Assessment Other chronic pain G89.29 Active Assessment Dysuria R30.0 Active Problem Pain in right wrist M25.531 Active Problem Other chronic pain G89.29 Active Problem Mixed hyperlipidemia E78.2 Active Problem Thoracic spine pain M54.6 Active Problem Lumbago with sciatica, left side M54.42 Active Assessment Left wrist pain M25.532 Active Assessment Pain in right wrist M25.531 Active Assessment Thoracic spine pain M54.6 Active Assessment Acute left ankle pain M25.572 Active Problem Thyroid disorder screen Z13.29 Acti ve Problem Chronic idiopathic constipation K59.09 Active Problem Gestational diabetes O24.419 Active Problem History of gestational diabetes Z86.32 Active Problem Prediabetes R73.09 Active Problem Chronic GERD K21.9 Active Medications Medication Code System Code Instructions Start Date End Date Status Dosage Gabapentin [facility] [address]-76 300 MG Orally 30 0mg daily x1 day then 300mg bid x 1 day then 300mg TID Jun 09, 2016 1 capsule Sertraline HCl [facility] [address]-18 50 MG Orally Once a day Jun 09 16 1 tablet Cyclobenzaprine HCl [facility] [address]-64 10 MG Orally Three t imes a day Jun 09, 2016 1 tablet Protonix [facility] [address]-71 20 MG Orally Once a day Jun 22, 2016 1 tablet Colace [facility] [address]-68 100 MG Orally Once a day Jun 09, 2016 1 capsule as needed Fiber NDC 0 Orally not defined Nortriptyline HCl [facility] [address]-26 25 MG Orally QHS Jun 09, 2016 1 capsule Pravastatin Sodium [facility] [address]-14 20 MG Orally qhs Jun 09, 2016 1 tablet Ibuprofen [facility] [address]-58 800 MG Orally Three times a day Jun 09, 2016 1 tablet Dexilant [facility] [address]-22 30 MG Orally Once a day Jun 09, 2016 1 capsule Benefiber [facility] [address]-84 - Orally Two times daily Jun 09, 2016 2 Procedures Procedure Coding System Code Date Office Visit, Est Pt., Level 3 CPT-4 06218 S ept 2015 URINALYSIS, AUTO, W/O SCOPE IH CPT-4 20396 S ept 2015 Vital Signs Date/Time: Jun 23, 2016 Temperature 96.7 F Weight 323.4 lbs Height 69 in Respiratory Rate 17 /min Cardiac Monitoring Heart Rate 67 /min Blood Pressure Diastolic 84 mm Hg Blood Pressure Systolic 128 mm Hg BMI 47.75 Index Oximetry 97 % Results No Known Results Summary Purpose [employer] Submission
--- OUTSIDE RECORDS SUMMARY | 2020-03-15 21:27 | XMS REPORT ---
Author Author Solange Sultana Organization [employer] Address Unknown Phone Unavailable Care Team Providers Care Cost Accounting Clerk Name Role Phone Felisha Sultana CP [...] Start Date End Date Status Dosage Gabapentin [facility] [address]-26 300 MG Orally 30 0mg daily x1 day then 300mg bid x 1 day then 300mg TID Jun 09, 2016 1 capsule Results No Known Results Summary Purpose [employer] Submission
--- OUTSIDE RECORDS SUMMARY | 2020-03-15 21:27 | XMS REPORT ---
Author Author Solange Sultana [facility] Address [address], [place] [address] Care Team Providers Care Laborer Aquatic Life Name Role Phone Felisha Sultana Unavailable PROBLEMS Type Condition ICD9-CM Code [id number] Code Onset Dates Condition S tatus SNOMED Code Problem Thoracic spine pain M54.6 Active 589704964 Problem Reactive airway disease, mild persistent, uncomplicated J45.30 Active 778768887649 Problem Plantar fasciitis M72.2 Active 20 6029990 Problem Other elevated white blood cell (WBC) count D72.82 8 Active 848843611 Problem History of gestational diabetes Z86.32 Active 555021688 Problem Other fatigue R53.83 Active 941390 01 Problem Thyroid disorder screen Z13.29 Active 762245170 Problem Chronic GERD K21.9 Active 3610402 09 Problem Irregular periods N92.6 Active 80 094571 Problem Post herpetic neuralgia B02.29 Active 7841182 Problem Vitamin D deficiency E55.9 Active 52047457 Problem Prediabetes R73.03 Active 64672093 2 Problem Depression with anxiety F41.8 Active 288231377 Problem Prediabetes R73.09 Active 10752794 2 Problem Fibromyalgia M79.7 Active 0304656 05 Problem Mixed hyperlipidemia E78.2 Active 373627885 Problem Other chronic pain G89.29 Active 8 9690121 Problem Left wrist pain M25.532 Active 5660 8008 Problem Gestational diabetes O24.419 Active 68830837 Problem Lumbago of lumbar region with sciatica M54.40 Active 41513298 Problem Lumbago with sciatica, left side M54.42 Active 396924378 Problem Chronic idiopathic constipation K59.09 Active 89108890 Problem Acute left ankle pain M25.572 Active 92760113879735 Problem Pain in right wrist M25.531 Active 82035428 ALLERGIES No Information SOCIAL HISTORY Never Assessed PLAN OF CARE VITAL SIGNS MEDICATIONS Medication Instructions Dosage Frequency Start Date End Date Duration S serena Pennsaid 2 % Transdermal Twice a day 2 applications to affected are a 12h Feb, 30 day(s) Active MorphaBond ER 15 MG Orally every 12 hrs 1 tablet 12h Aug, 30 days Active Colace 100 MG Orally Once a day 1 capsule as needed 24h May, 30 day(s) Active Gabapentin 600 MG Orally Three times a day 1 capsule 8h May, 6 30 days Active [place] 5-325 MG Orally every 6 hrs 1 tablet as needed 6h Aug, 7 10 days Active Vitamin D (Ergocalciferol) 24845 UNIT Orally two a week 1 capsule Feb, 30 days Active Pantoprazole Sodium 40 MG Orally Once a day 1 tablet 24h Jul, 6 Active Fiber Active Pravastatin Sodium 20 MG TAKE 1 TABLET BY MOUTH EVERY NIGHT AT BEDTIME 90 Active Saxenda 18 MG/3ML Subcutaneous 0.6mg daily x1w [place], 1.2mg daily x1week, 1.8mg daily x1week, 2.4mg daily x1week, 3.0mg daily thereon as directed Apr, 30 day(s) Active Ventolin HFA 108 (90 Base) MCG/ACT Inhalation every 4 hrs 2 puffs a s needed 4h Aug, 30 days Active Nortriptyline HCl 25 MG Orally QHS 1 capsule May, 30 day(s) Active Flonase 50 MCG/ACT Nasally Once a day 1 spray in each nostril 24h Active Benefiber - Orally Two times daily 2 May, 30 days Active Sprintec 28 0.25-35 MG-MCG Orally Once a day 1 tablet 24h 2016 28 day(s) Active Sertraline HCl 50 MG Orally Once a day 1 tablet 24h May, 30 day(s) Active Gralise 600 MG Orally Once a day 3 tablets with evening meal 24h Feb, 30 day(s) Active Tramadol HCl 50 MG TAKE 1 TABLET BY MOUTH TWICE DAILY FOR 30 DAY S 30 Active Skelaxin 800 MG Orally Three times a day 1 tablet 8h Feb, 30 day(s) Active ProAir HFA 108 (90 Base) MCG/ACT Inhalation every 4 hrs 2 puffs as needed 4h Aug, 30 days Active Mobic 15 MG Orally Once a day 1 tablet 24h Jul, 90 d ays Active RESULTS No Results PROCEDURES No Known procedures IMMUNIZATIONS No Known Immunizations MEDICAL (GENERAL) HISTORY Type Description Date Medical [...] L distal tibia- Dr. Tyree Hernandez 07/2015 Hospitalization History [facility]- Hyperglycemia and February 2016
--- OUTSIDE RECORDS SUMMARY | 2020-03-15 21:27 | XMS REPORT ---
Author Author Solange Sultana [facility] Address [address], [place] [id number] Care Team Providers Care Transcription Name Role Phone Felisha Sultana Unavailable PROBLEMS Type Condition ICD9-CM Code XTS99-RS Code Onset Dates Condition S tatus SNOMED Code Problem Chronic idiopathic constipation K59.09 Active 43786640 Problem Gestational diabetes O24.419 Active 87573574 Problem Lumbago of lumbar region with sciatica M54.40 Active 62140538 Problem Thyroid disorder screen Z13.29 Active 978362634 Problem History of gestational diabetes Z86.32 Active 369339626 Problem Chronic GERD K21.9 Active 9912581 09 Problem Prediabetes R73.09 Active 49933436 2 Problem Other fatigue R53.83 Active 269397 01 Problem Fibromyalgia M79.7 Active 9918826 05 Problem Vitamin D deficiency E55.9 Active 92753086 Problem Mixed hyperlipidemia E78.2 Active 567249647 Problem Prediabetes R73.03 Active 34125151 2 Problem Generalized anxiety disorder F41.1 A ctive 00872056 Problem Other elevated white blood cell (WBC) count D72.82 8 Active 299175974 Problem Cigarette nicotine dependence, uncomplicated F17.2 10 Active 67488074 Problem Cervical pain M54.2 Active 645247 05 Problem Lumbago with sciatica, left side M54.42 Active 111051688 Problem Other chronic pain G89.29 Active 8 5207838 Problem Depression with anxiety F41.8 Active 544404708 Problem Decreased hearing of left ear H91.92 Active 50407507 Problem Absent periods N91.2 Active 53620 001 Problem Elevated blood pressure reading R03.0 Active 15225383 Problem Left hand pain M79.642 Active 32103 8988305691 Problem Acute left ankle pain M25.572 Active 29462434725253 Problem Thoracic spine pain M54.6 Active 319173566 Problem Pain in right wrist M25.531 Active 29357554 Problem Left wrist pain M25.532 Active 5660 8008 Problem Post herpetic neuralgia B02.29 Active 9673012 Problem Irregular periods N92.6 Active 80 246638 Problem Plantar fasciitis M72.2 Active 20 0615873 Problem Reactive airway disease, mild persistent, uncomplicated J45.30 Active [id number] ALLERGIES No Information ENCOUNTERS Encounter Location Date Diagnosis [facility] [address] [place] [address] Feb, [facility] [address] [place] [address] Feb, [facility] [address] [place] [address] Feb, [facility] [address] [place] [address] Feb, Diarrhea, unspecified type R19.7 [facility] [address] [place] [address] Feb, Abnormal glucose R73.09 [facility] [address] [place] [address] Feb, Abnormal glucose R73.09 [facility] [address] [place] [address] Feb, Reactive airway disease, mild persistent , uncomplicated J45.30 [facility] [address] [place] [address] Feb, Lumbago with sciatica, left side M54.42 ; Cigarette nicotine dependence, uncomplicated F17.210 ; Diarrhea, unspecified type R19.7 and Abnormal glucose R73.09 [facility] [address] [place] [address] January, [facility] [address] [place] [address] January, [facility] [address] [place] [address] January, [facility] [address] [place] [address] January, [facility] [address] [place] [address] January, Muscle strain of chest wall, initial enc ounter S29.011A ; Physical exam Z00.00 ; Need for hepatitis vaccination Z23 and Abscess L02.[address] [address] Dec, Left hand pain M79.642 ; Thoracic spine pain M54.6 ; Cervical pain M54.2 and Elevated blood pressure reading R03.[address] [address] Dec, Lumbago with sciatica, left side M54.42 and Decreased hearing of left ear H91.[address] [address] Dec, Other chest pain R07.89 ; Finger pain, l eft M79.645 ; Chronic GERD K21.9 and Muscle strain of chest wall, initial encounter S29.011A [address] [address] Dec, [address] [address] Dec, Other constipation K59.09 ; Irregular pe riods N92.6 and Absent periods N91.[address] [address] Oct, [address] [address] Oct, Weight gain R63.[address] [address] Oct, Generalized anxiety disorder F41.[address] [address] Sep, [address] [address] Sep, Absent periods N91.2 and Decreased heari ng of left ear H91.[address] [address] Sep, [address] [address] Sep, Pre-op exam Z01.818 and Abscess of chest wall L02.[address] [address] Sep, [address] [address] Sep, Prediabetes R73.09 ; Vitamin D deficienc y E55.9 ; Mixed hyperlipidemia E78.2 and Arthritis of ankle, left M19.[address] [address] Sep, Smoking trying to quit Z72.0 ; Chronic G ERD K21.9 ; Generalized anxiety disorder F41.1 ; Other chest pain R07.89 ; Other constipation K59.09 and Right upper quadrant pain R10.[address] [address] Aug, [address] [address] Aug, Other chronic pain G89.[address] [address] 14 Aug, 2017 Mixed hyperlipidemia E78.2 ; Fibromyalgi a M79.7 ; Lumbago of lumbar region with sciatica M54.40 ; History of gestational diabetes Z86.32 ; Prediabetes R73.09 ; Vitamin D deficiency E55.9 ; Weight gain R63.5 ; control counseling Z30.09 ; Pain, dental K08.89 and Flank pain R10.[address] [address] Aug, [address] [address] Jun, Acute left ankle pain M25.[address] [address] Jun, [address] [address] Jun, [place] [address] [place] [address] Jun, Acute left ankle pain M25.572 [facility] [address] [place] [address] Jun, [facility] [address] [place] [address] Jun, Acute left ankle pain M25.572 [facility] [address] [place] [address] Jun, Influenza vaccine needed Z23 and Irregul ar periods N92.6 [facility] [address] [place] [address] May, Mixed hyperlipidemia E78.2 [facility] [address] [place] [address] May, [facility] [address] [place] [address] May, Chronic GERD K21.9 [facility] [address] [place] [address] Apr, Weight gain R63.5 [facility] [address] [place] [address] Apr, Chronic GERD K21.9 and Weight gain R63.5 [facility] [address] [place] [address] Mar, Depression with anxiety F41.8 and Chroni c idiopathic constipation K59.09 [facility] [address] [place] [address] Mar, Other chronic pain G89.29 [facility] [address] [place] [address] Mar, Post herpetic neuralgia B02.29 [facility] [address] [place] [address] Mar, Post herpetic neuralgia B02.29 [facility] [address] [place] [address] Mar, [facility] [address] [place] [address] Mar, Other elevated white blood cell (WBC) co unt D72.[address] [address] Mar, Other elevated white blood cell (WBC) co unt D72.828 and Dyslipidemia E78.[address] [address] Feb, [address] [address] Feb, Vitamin D deficiency E55.9 ; Dyslipidemi a E78.5 ; Other elevated white blood cell (WBC) count D72.828 and Skin tag L91.[address] [address] Feb, [address] [address] Feb, Vitamin D deficiency E55.9 and Dyslipide sourav E78.[address] [address] Feb, [address] [address] Feb, Post herpetic neuralgia B02.29 ; Thyroid disorder screen Z13.29 ; Mixed hyperlipidemia E78.2 ; Chronic GERD K21.9 ; Lumbago of lumbar region with sciatica M54.40 ; Prediabetes R73.03 ; Other fatigue R53.83 ; Vitamin D deficiency E55.9 and Vitamin B 12 deficiency E53.[address] [address] Feb, Reactive airway disease, mild persistent , uncomplicated J45.[address] [address] Feb, Chronic GERD K21.[address] [address] Feb, Mixed hyperlipidemia E78.2 and Other chr onic pain G89.[address] [address] Feb, Lumbago with sciatica, left side M54.42 ; Mixed hyperlipidemia E78.2 and Reactive airway disease, mild persistent, uncomplicated J45.30 [facility] [address] [place] [address] Feb, Chronic GERD K21.9 [facility] [address] [place] [address] Feb, [facility] [address] [place] [address] Feb, [facility] [address] [place] [address] Feb, Post herpetic neuralgia B02.29 [facility] [address] [place] [address] Feb, Allergic contact dermatitis due to other agents L23.89 and Post herpetic neuralgia B02.29 [facility] [address] [place] [address] Feb, Chronic GERD K21.9 [facility] [address] [place] [address] Feb, Chronic GERD K21.9 [facility] [address] [place] [address] January, Post herpetic neuralgia B02.29 [facility] [address] [place] [address] January, Lumbago with sciatica, left side M54.42 [facility] [address] [place] [address] January, [facility] [address] [place] [address] January, Lumbago of lumbar region with sciatica M 54.40 [facility] [address] [place] [address] January, Other chronic pain G89.29 and Lumbago wi th sciatica, left side M54.42 [facility] [address] [place] [address] January, Depression with anxiety F41.8 [facility] [address] [place] [address] January, Mixed hyperlipidemia E78.[address] [address] January, Abscess of left groin L02.[address] [address] Dec, Depression with anxiety F41.[address] [address] Dec, Irregular periods N92.[address] [address] Nov, Left wrist pain M25.532 and Acute left a nkle pain M25.[address] [address] Nov, Post herpetic neuralgia B02.29 and Absce ss of left groin L02.[address] [address] Sep, Irregular periods N92.[address] [address] Sep, Mixed hyperlipidemia E78.2 ; Flank pain R10.9 and Post herpetic neuralgia B02.[address] [address] Aug, Lumbago of lumbar region with sciatica M 54.40 ; Chronic idiopathic constipation K59.09 ; Depression with anxiety F41.8 and Mixed hyperlipidemia E78.[address] [address] Aug, Other chronic pain G89.[address] [address] Aug, Reactive airway disease, mild persistent , uncomplicated J45.[address] [address] Aug, [address] [address] Aug, Cough R05 and Allergic contact dermatiti s due to other agents L23.[address] [address] Aug, [address] [address] Jul, Other chronic pain G89.[address] [address] Jul, Upper respiratory tract infection, unspe cified type J06.9 ; Chronic GERD K21.9 ; Acute left ankle pain M25.572 and Lumbago of lumbar region with sciatica M54.[address] [address] Jun, Other chronic pain G89.[address] [address] Jun, [address] [address] Jun, [address] [address] Jun, Chronic GERD K21.[address] [address] Jun, [address] [address] May, Pain in right wrist M25.531 ; Left wrist pain M25.532 ; Acute left ankle pain M25.572 ; Thoracic spine pain M54.6 ; Lumbago with sciatica, left side M54.42 ; Other chronic pain G89.29 and Dysuria R30.[address] [address] May, Chronic GERD K21.[address] [address] May, Chronic GERD K21.[address] [address] May, [address] [place] [address] 19 May, 2016 [facility] [address] [place] [address] 16 May, 2016 [facility] [address] [place] [address] 16 May, 2016 [facility] [address] [place] [address] 16 May, 2016 Mixed hyperlipidemia E78.2 ; Fibromyalgi a M79.7 ; Depression with anxiety F41.8 ; Lumbago of lumbar region with sciatica M54.40 ; Encounter to establish care Z76.89 ; Chronic GERD K21.9 ; History of gestational diabetes Z86.32 ; Chronic idiopathic constipation K59.09 ; Thyroid disorder screen Z13.29 and Need for influenza vaccination Z23 [facility] [address] [place] [address] Apr, Gestational diabetes O24.419 [facility] [address] [place] [address] Feb, Gestational diabetes O24.419 IMMUNIZATIONS No Known Immunizations SOCIAL HISTORY Never Assessed REASON FOR VISIT discuss meds PLAN OF CARE VITAL SIGNS MEDICATIONS Unknown [...] History Fused L ankle 09/2017 Hospitalization History [facility]- Hyperglycemia and February 2016 Hospitalization History Ankle surgery 09/2017
--- OUTSIDE RECORDS SUMMARY | 2020-03-15 21:27 | XMS REPORT ---
Author Author Solange Sultana [facility] Address [address] [place], [place] [id number] Care Team Providers Care Piano Maker Name Role Phone Felisha Sultana Unavailable PROBLEMS ALLERGIES No Information ENCOUNTERS IMMUNIZATIONS No Known Immunizations SOCIAL HISTORY No smoking Hx information available REASON FOR VISIT PLAN OF CARE VITAL SIGNS MEDICATIONS RESULTS No Results PROCEDURES No Known procedures INSTRUCTIONS MEDICATIONS ADMINISTERED No Known Medications MEDICAL (GENERAL) HISTORY
--- OUTSIDE RECORDS SUMMARY | 2020-03-15 21:27 | XMS REPORT ---
Author Author Solange Cota [facility] Address [address] [place] [address] Care Team Providers Care Coding Clerk Name Role Phone Iram Cota Unavailable PROBLEMS Type Condition ICD9-CM Code VJD25-TV Code Onset Dates Condition S tatus SNOMED Code Problem Gestational diabetes O24.419 Active 16308725 Problem Pain in right wrist M25.531 Active 87413592 Problem Mixed hyperlipidemia E78.2 Active 130123002 Problem Other chronic pain G89.29 Active 8 6729415 Problem Depression with anxiety F41.8 Active 646371770 Problem Plantar fasciitis M72.2 Active 20 7647008 Problem Post herpetic neuralgia B02.29 Active 1929321 Problem Reactive airway disease, mild persistent, uncomplicated J45.30 Active 558985682805 Problem Generalized anxiety disorder F41.1 A ctive 45654575 Problem Other elevated white blood cell (WBC) count D72.82 8 Active 284476938 Problem Fibromyalgia M79.7 Active 5573011 05 Problem Prediabetes R73.09 Active 03529574 2 Problem Chronic GERD K21.9 Active 3702957 09 Problem Other fatigue R53.83 Active 794235 01 Problem Irregular periods N92.6 Active 80 097798 Problem Prediabetes R73.03 Active 89769561 2 Problem Vitamin D deficiency E55.9 Active 66934693 Problem Chronic idiopathic constipation K59.09 Active 93068561 Problem Lumbago of lumbar region with sciatica M54.40 Active 68424593 Problem Thyroid disorder screen Z13.29 Active 313982047 Problem History of gestational diabetes Z86.32 Active 880912700 Problem Left wrist pain M25.532 Active 5660 8008 Problem Lumbago with sciatica, left side M54.42 Active 991436597 Problem Acute left ankle pain M25.572 Active 40424264296548 Problem Thoracic spine pain M54.6 Active 305756832 ALLERGIES No Information SOCIAL HISTORY Never Assessed PLAN OF CARE VITAL SIGNS MEDICATIONS Unknown [...] tibia- Dr. Tyree Hernandez 07/2015 Hospitalization History [facility]- Hyperglycemia and February 2016
--- OUTSIDE RECORDS SUMMARY | 2020-03-15 21:27 | XMS REPORT ---
Author Author Solange Sultana [facility] Address [address] [place], [place] [id number] Care Team Providers Care Commuter Train Operator Name Role Phone Kodi LoweryPhyllisFelisha Unavailable PROBLEMS Type Condition ICD9-CM Code SZO70-HS Code Onset Dates Condition S tatus SNOMED Code Problem Lumbago with sciatica, left side M54.42 Active 878935631 Problem Acute left ankle pain M25.572 Active 00244380760147 Problem Thoracic spine pain M54.6 Active 424526031 Problem Irregular periods N92.6 Active 80 032302 Problem Gestational diabetes O24.419 Active 03957009 Problem Post herpetic neuralgia B02.29 Active 0844773 Assessment Post herpetic neuralgia B02.29 Nov, Ac tive 9731038 Assessment Abscess of left groin L02.214 Nov, Acti ve 226010019 Problem Pain in right wrist M25.531 Active 58846758 Problem Left wrist pain M25.532 Active 5660 8008 Problem Reactive airway disease, mild persistent, uncomplicated J45.30 Active 990488290316 Problem Plantar fasciitis M72.2 Active 20 7912934 Problem Chronic idiopathic constipation K59.09 Active 04271929 Problem History of gestational diabetes Z86.32 Active 436502720 Problem Prediabetes R73.09 Active 24469421 2 Problem Thyroid disorder screen Z13.29 Active 382093671 Problem Depression with anxiety F41.8 Active 779268755 Problem Fibromyalgia M79.7 Active 2224231 05 Problem Chronic GERD K21.9 Active 2447917 09 Problem Mixed hyperlipidemia E78.2 Active 817189278 Problem Lumbago of lumbar region with sciatica M54.40 Active 61375339 Problem Other chronic pain G89.29 Active 8 6748539 ALLERGIES Substance Reaction Event Type Date Status Oxycodone HCl vomitting Drug Allergy Nov, Active Hydrocodone-Acetaminophen vomitting Drug Allergy Nov, Ac tive SOCIAL HISTORY No smoking Hx information available PLAN OF CARE VITAL SIGNS Height 69 in 2016-11-30 Weight 331 lbs 2016-11-30 Temperature 96.3 degrees Fahrenheit 2016-11-30 Heart Rate 77 /min 2016-11-30 Respiratory Rate 16 /min 2016-11-30 Oximetry 95 % 2016-11-30 BMI 48.87 kg/m2 2016-11-30 Blood pressure systolic 128 mm Hg 2016-11-30 Blood pressure diastolic 78 mm Hg 2016-11-30 MEDICATIONS Medication Instructions Dosage Frequency Start Date End Date Duration S tatus ProAir HFA 108 (90 Base) MCG/ACT Inhalation every 4 hrs 2 puffs as needed 4h Aug, 30 days Active Gabapentin 300 MG Orally at hs 2 capsules May, Active Fiber Active Benefiber - Orally Two times daily 2 May, 30 days Active Protonix 20 MG Orally Once a day 1 tablet 24h May, Active Nortriptyline HCl 25 MG Orally QHS 1 capsule May, 30 day(s) Active Pravastatin Sodium 20 MG Orally qhs 1 tablet May, 30 day(s) Active Lidocaine 5 % Externally Once a day 1 patch to intact skin remove after 12 hours 24h Aug, 30 days Active Pantoprazole Sodium 40 MG Orally Once a day 1 tablet 24h Jul 30 day(s) Active Mobic 15 MG Orally Once a day 1 tablet 24h Jul, 30 d ay(s) Active Sertraline HCl 50 MG Orally Once a day 1 tablet 24h May, 30 day(s) Active Bactrim DS 800-160 MG Orally Two times daily 1 tablet 2016 10 day(s) Active Cyclobenzaprine HCl 10 MG Orally Three times a day 1 tablet 8h May, 30 day(s) Active Colace 100 MG Orally Once a day 1 capsule as needed 24h May, 30 day(s) Active RESULTS No Results PROCEDURES Procedure Date Ordered Related Diagnosis Body Site Office Visit, Est Pt., Level 3 November 30, 2016 IMMUNIZATIONS No Known Immunizations
--- OUTSIDE RECORDS SUMMARY | 2020-03-15 21:27 | XMS REPORT ---
Author Author Solange Sultana [facility] Address [address] [place], [place] [id number] Care Team Providers Care Body Team Member Name Role Phone Kodi LoweryPhyllisFelisha Unavailable PROBLEMS Type Condition ICD9-CM Code KVI84-RV Code Onset Dates Condition S tatus SNOMED Code Problem Lumbago with sciatica, left side M54.42 Active 915551839 Problem Acute left ankle pain M25.572 Active 93328966289474 Problem Thoracic spine pain M54.6 Active 332988632 Problem Irregular periods N92.6 Active 80 252857 Problem Gestational diabetes O24.419 Active 53279762 Problem Post herpetic neuralgia B02.29 Active 8926667 Assessment Left wrist pain M25.532 Nov, Active 32077238 Problem Pain in right wrist M25.531 Active 73313334 Problem Left wrist pain M25.532 Active 5660 8008 Problem Reactive airway disease, mild persistent, uncomplicated J45.30 Active 559595551717 Problem Plantar fasciitis M72.2 Active 20 3601648 Problem Chronic idiopathic constipation K59.09 Active 65803008 Problem History of gestational diabetes Z86.32 Active 405643413 Problem Prediabetes R73.09 Active 88701414 2 Problem Thyroid disorder screen Z13.29 Active 311699279 Problem Depression with anxiety F41.8 Active 918496694 Problem Fibromyalgia M79.7 Active 6478341 05 Problem Chronic GERD K21.9 Active 3328286 09 Problem Mixed hyperlipidemia E78.2 Active 663751055 Problem Lumbago of lumbar region with sciatica M54.40 Active 99073929 Problem Other chronic pain G89.29 Active 8 2195818 ALLERGIES Unknown Allergies SOCIAL HISTORY No smoking Hx information available PLAN OF CARE VITAL SIGNS MEDICATIONS Medication Instructions Dosage Frequency Start Date End Date Duration S tatus Mobic 15 MG Orally Once a day 1 tablet 24h Jul, 30 d ay(s) Active RESULTS No Results PROCEDURES No Known procedures IMMUNIZATIONS No Known Immunizations
--- OUTSIDE RECORDS SUMMARY | 2020-03-15 21:27 | XMS REPORT ---
Author Author Solange Sultana [facility] Address [address] [place], [place] [address] Care Team Providers Care Construction Engineer Name Role Phone Felisha Sultana Unavailable PROBLEMS Type Condition ICD9-CM Code HWL85-ZY Code Onset Dates Condition S tatus SNOMED Code Problem Gestational diabetes O24.419 Active 54524054 Problem Left wrist pain M25.532 Active 5660 8008 Problem Prediabetes R73.09 Active 26071336 2 Problem Pain in right wrist M25.531 Active 91238260 Problem Thyroid disorder screen Z13.29 Active 908016230 Problem Plantar fasciitis M72.2 Active 20 6541319 Problem Post herpetic neuralgia B02.29 Active 7216233 Problem Reactive airway disease, mild persistent, uncomplicated J45.30 Active 244147173756 Problem Dyslipidemia E78.5 Active 6358220 07 Problem Other elevated white blood cell (WBC) count D72.82 8 Active 811451162 Problem Chronic GERD K21.9 Active 2753309 09 Problem History of gestational diabetes Z86.32 Active 904618331 Problem Chronic idiopathic constipation K59.09 Active 89135507 Problem Vitamin D deficiency E55.9 Active 94991641 Problem Irregular periods N92.6 Active 80 938934 Problem Prediabetes R73.03 Active 44581720 2 Problem Other fatigue R53.83 Active 208584 01 Problem Fibromyalgia M79.7 Active 4980523 05 Problem Mixed hyperlipidemia E78.2 Active 932999700 Problem Lumbago of lumbar region with sciatica M54.40 Active 08593171 Problem Depression with anxiety F41.8 Active 374092421 Problem Thoracic spine pain M54.6 Active 535008019 Problem Acute left ankle pain M25.572 Active 05005698810758 Problem Other chronic pain G89.29 Active 8 8648235 Problem Lumbago with sciatica, left side M54.42 Active 340981384 ALLERGIES No Information SOCIAL HISTORY Never Assessed PLAN OF CARE VITAL SIGNS MEDICATIONS Medication Instructions Dosage Frequency Start Date End Date Duration S serena Mobic 15 MG Orally Once a day [...] tibia- Dr. Tyree Hernandez 07/[address] [facility]- Hyperglycemia and February 2016
--- OUTSIDE RECORDS SUMMARY | 2020-03-15 21:27 | XMS REPORT ---
Author Author Solange Sultana Organization [employer] Address Unknown Phone Unavailable Care Team Providers Care Supply Assistant Name Role Phone Felisha Sultana CP [...]
--- OUTSIDE RECORDS SUMMARY | 2020-03-15 21:27 | XMS REPORT ---
Author Author Solange Sultana Organization [employer] Address Unknown Phone Unavailable Care Team Providers Care Immunologist Name Role Phone Felisha Sultana CP Unavailable [...] M54.40 Active Problem Chronic GERD K21.9 Active Assessment Chronic idiopathic constipation K59.09 Active Assessment History of gestational diabetes Z86.32 Active Assessment Need for influenza vaccination Z23 Active Assessment Thyroid disorder screen Z13.29 Acti ve Assessment Lumbago of lumbar region with sciatica M54.40 Active Assessment Depression with anxiety F41.8 Acti ve Assessment Chronic GERD K21.9 Active Assessment Fibromyalgia M79.7 Active Assessment Encounter to establish care Z76.89 Active Assessment Mixed hyperlipidemia E78.2 Active Medications Medication Code System Code Instructions Start Date End Date Status Dosage Fiber NDC 0 Orally not defined Sertraline HCl [facility] [address]-82 50 MG Orally Once a day Jun 09 1 tablet Benefiber [facility] [address]-88 - Orally Two times daily Jun 09, 2016 2 Nortriptyline HCl [facility] [address]-14 25 MG Orally QHS Jun 09, 2016 1 capsule Ibuprofen [facility] [address]-82 800 MG Orally Three times a day Jun 09, 2016 1 tablet Cyclobenzaprine HCl [facility] [address]-38 10 MG Orally Three t imes a day Jun 09, 2016 1 tablet Gabapentin [facility] [address]-80 300 MG Orally 30 0mg daily x1 day then 300mg bid x 1 day then 300mg TID Jun 09, 2016 1 capsule Pravastatin Sodium [facility] [address]-51 20 MG Orally qhs Jun 09, 2016 1 tablet Colace [facility] [address]-41 100 MG Orally Once a day Jun 09, 2016 1 capsule as needed Dexilant [facility] [address]-15 30 MG Orally Once a day Jun 09, 2016 1 capsule Procedures Procedure Coding System Code Date FLU VAC NO PRSV 4 JEFF 3 YRS+ CPT-4 60244 May IMMUNIZATION ADMIN CPT-4 06652 Jun 09, 2016 Billed by outside source CPT-4 NOBLL May Office Visit, Est Pt., Level 3 CPT-4 95973 S ept 2015 Vital Signs Date/Time: Jun 09, 2016 Temperature 97.6 F Weight 318 lbs Height 69 in Respiratory Rate 17 /min Cardiac Monitoring Heart Rate 82 /min Blood Pressure Diastolic 67 mm Hg Blood Pressure Systolic 135 mm Hg BMI 46.96 Index Oximetry 98 % Results Name Result Date Reference Range Unit Abnormali ty Flag Thyroid-Stimulating Hormone (TSH) and Free T4 82707/61429 ----TSH 2.250 [id number] 0.450-4.500 uIU/mL ----T4,Free(Direct) 0.88 39435271 0.82-1.77 ng/dL Lipid Panel 31406 ----LDL Cholesterol Calc 159 01031446 0-99 mg/dL H ----VLDL Cholesterol Dillon 68 77910564 5-40 mg/dL H ----Comment: ROD PILER [id number] ----Cholesterol, Total 261 29567174 100-199 mg/dL H ----HDL Cholesterol 34 77695870 >39 mg/dL L ----Triglycerides 340 68442007 0-149 mg/dL H Hemoglobin A1c ----Hemoglobin A1c 6.0 82640944 4.8-5.6 % H Complete Blood Count (CBC) w/ Differential 16761 ----MCHC 33.0 39357687 31.5-35.7 g/dL ----MCH 27.8 69669895 26.6-33.0 pg ----Platelets 302 51092439 150-379 x10E3/uL ----RDW 15.0 26065824 12.3-15.4 % ----Baso (Absolute) 0.1 06281470 0.0-0.2 x10E3/uL ----Immature Granulocytes ROD PILER [id number] ----Immature Grans (Abs) ROD PILER [id number] ----NRBC ROD PILER [id number] ----Lymphs 40 64599952 % ----Monocytes 6 78090516 % ----Neutrophils 50 07208324 % ----Immature Cells ROD PILER [id number] ----Hematocrit 42.4 75163585 34.0-46.6 % ----Neutrophils (Absolute) 5.5 45809211 1.4-7.0 x10E3/uL ----MCV 84 81484979 79-97 fL ----RBC 5.04 21609228 3.77-5.28 x10E6/uL ----Eos 3 41855223 % ----Basos 1 16367536 % ----Hemoglobin 14.0 92485832 11.1-15.9 g/dL ----Hematology Comments: ROD PILER [id number] ----Eos (Absolute) 0.4 94542256 0.0-0.4 x10E3/uL ----WBC 10.9 75707365 3.4-10.8 x10E3/uL H ----Lymphs (Absolute) 4.3 71410878 0.7-3.1 x10E3/uL H ----Monocytes(Absolute) 0.7 56138308 0.1-0.9 x10E3/uL Metabolic Panel (14), Comprehensive (CMP) 57968 ----Potassium, Serum 4.3 60013578 3.5-5.2 mmol/L ----Sodium, Serum 143 39149715 134-144 mmol/L ----BUN/Creatinine Ratio 13 20160609 8-20 ----eGFR If Africn Am 132 96424320 >59 mL/min/1.73 ----eGFR If NonAfricn Am 114 94866786 >59 mL/min/1.73 ----Creatinine, Serum 0.67 88645711 0.57-1.00 mg/dL ----BUN 9 20160609 6-20 mg/dL ----Glucose, Serum 96 30551615 65-99 mg/dL ----AST (SGOT) 18 59601415 0-40 IU/L ----Globulin, Total 2.7 07235162 1.5-4.5 g/dL ----ALT (SGPT) 19 28074461 0-32 IU/L ----A/G Ratio 1.7 90955563 1.1-2.5 ----Bilirubin, Total 0.3 85128352 0.0-1.2 mg/dL ----Alkaline Phosphatase, S 96 77033392 39-117 IU/L ----Carbon Dioxide, Total 23 70608425 18-29 mmol/L ----Calcium, Serum 9.5 15750234 8.7-10.2 mg/dL ----Protein, Total, Serum 7.2 36716072 6.0-8.5 g/dL ----Albumin, Serum 4.5 31560990 3.5-5.5 g/dL ----Chloride, Serum 103 16717632 97-108 mmol/L Immunizations Vaccine Administration Date Influenza Split 3 yrs > (QUAD) Jun 09, 2016 Summary Purpose [employer] Submission
--- OUTSIDE RECORDS SUMMARY | 2020-03-15 21:27 | XMS REPORT ---
Author Author Solange Sultana [facility] Address [address] [place], [place] [id number] Care Team Providers Care Administrative Support Assoc Name Role Phone Felisha Sultana Unavailable PROBLEMS ALLERGIES No Information ENCOUNTERS IMMUNIZATIONS No Known Immunizations SOCIAL HISTORY No smoking Hx information available REASON FOR VISIT PLAN OF CARE VITAL SIGNS MEDICATIONS Unknown Medications RESULTS No Results PROCEDURES No Known procedures INSTRUCTIONS MEDICATIONS ADMINISTERED No Known Medications MEDICAL (GENERAL) HISTORY
--- OUTSIDE RECORDS SUMMARY | 2020-03-15 21:27 | XMS REPORT ---
Author Solange Pimentel [facility] [employer] Address Unknown Phone Unavailable Care Team Providers Care Music Pastor Name Role Phone Zahida Garcia Unavailable Allergies, Adverse Reactions, Alerts Substance Reaction Event Type Oxycodone HCl vomitting Drug Allergy Hydrocodone-Acetaminophen vomitting Drug Allergy Problems Problem Type Condition Code Onset Dates Condition Statu s Assessment Gestational diabetes O24.419 Active Problem Gestational diabetes O24.419 Active Medications Medication Code System Code Instructions Start Date End Date Status Dosage Humalog [facility] [address]-11 100 UNIT/ML Subcutaneous TID 10 units Levemir [facility] [address]-94 100 UNIT/ML Subcutaneous BID 15 units 1 [facility] 99[address]3674 30-0.975-200 MG Orally not defined Fiber NDC 0 Orally not defined Omeprazole [facility] [address]-80 40 MG Orally Once a day 1 capsule Procedures Procedure Coding System Code Date Office Visit, New Pt., Level 3 CPT-4 81008 J 2015 GLYCATED HEMOGLOBIN TEST CPT-4 20293 March 15, 2016 Vital Signs Date/Time: March 15, 2016 Blood Pressure Systolic 122 mm Hg Weight 345 lbs Height 69 in BMI 50.94 Index Respiratory Rate 20 /min Cardiac Monitoring Heart Rate 90 /min Blood Pressure Diastolic 78 mm Hg Results No Known Results Summary Purpose [employer] Submission
--- OUTSIDE RECORDS SUMMARY | 2020-03-15 21:27 | XMS REPORT ---
Author Author Solange Sultana Organization [employer] Address Unknown Phone Unavailable Care Team Providers Care Neurosurgery Spine Physician Name Role Phone Felisha Sultana CP Unavailable [...] Start Date End Date Status Dosage Lidocaine [facility] [address]-30 5 % Externally Once a day Aug 29, 2016 1 patch to intact skin remove after 12 hours Results No Known Results Summary Purpose [employer] Submission
--- OUTSIDE RECORDS SUMMARY | 2020-03-15 21:28 | XMS REPORT ---
Author Author Solange Sultana [facility] Address [address] [place], [place] [id number] Care Team Providers Care Planogrammer Name Role Phone Kodi LoweryPhyllisFelisha Unavailable PROBLEMS Type Condition ICD9-CM Code [id number] Code Onset Dates Condition S tatus SNOMED Code Problem Lumbago with sciatica, left side M54.42 Active 974268169 Problem Acute left ankle pain M25.572 Active 93787461441976 Problem Thoracic spine pain M54.6 Active 855911050 Problem Irregular periods N92.6 Active 80 565741 Problem Gestational diabetes O24.419 Active 30300039 Problem Post herpetic neuralgia B02.29 Active 5329280 Problem Pain in right wrist M25.531 Active 61108459 Problem Left wrist pain M25.532 Active 5660 8008 Problem Reactive airway disease, mild persistent, uncomplicated J45.30 Active 029824815257 Problem Plantar fasciitis M72.2 Active 20 6160839 Problem Chronic idiopathic constipation K59.09 Active 67824156 Problem History of gestational diabetes Z86.32 Active 562516009 Problem Prediabetes R73.09 Active 64430313 2 Problem Thyroid disorder screen Z13.29 Active 884291269 Problem Depression with anxiety F41.8 Active 972730489 Problem Fibromyalgia M79.7 Active 1041194 05 Problem Chronic GERD K21.9 Active 7513820 09 Problem Mixed hyperlipidemia E78.2 Active 594717495 Problem Lumbago of lumbar region with sciatica M54.40 Active 46824973 Problem Other chronic pain G89.29 Active 8 4270557 ALLERGIES Unknown Allergies SOCIAL HISTORY No smoking Hx information available PLAN OF CARE VITAL SIGNS MEDICATIONS Medication Instructions Dosage Frequency Start Date End Date Duration S tatus Nortriptyline HCl 25 MG Orally QHS 1 capsule May, 30 day(s) Active Fiber Active Cyclobenzaprine HCl 10 MG Orally Three times a day 1 tablet 8h May, 30 day(s) Active ProAir HFA 108 (90 Base) MCG/ACT Inhalation every 4 hrs 2 puffs as needed 4h Aug, 30 days Active Pravastatin Sodium 20 MG Orally qhs 1 tablet May, 90 days Active Protonix 20 MG Orally Once a day 1 tablet 24h May, 3 0 days Active Colace 100 MG Orally Once a day 1 capsule as needed 24h May, 30 day(s) Active Sertraline HCl 50 MG Orally Once a day 1 tablet 24h May, 30 day(s) Active Mobic 15 MG Orally Once a day 1 tablet 24h Jul, 30 d ay(s) Active Lidocaine 5 % Apply 2.5 grams three times daily Aug, 30 days Active Benefiber - Orally Two times daily 2 May, 30 days Active Gabapentin 600 MG Orally at hs 1 capsule May, 30 days Active Pantoprazole Sodium 40 MG Orally Once a day 1 tablet 24h Jul 30 day(s) Active RESULTS No Results PROCEDURES No Known procedures IMMUNIZATIONS No Known Immunizations
--- OUTSIDE RECORDS SUMMARY | 2020-03-15 21:28 | XMS REPORT ---
Author Author Solange Sultana [facility] Address [address] [place], [place] [address] Care Team Providers Care Systems Software Developer Name Role Phone Phyllis Sultanayla Unavailable PROBLEMS Type Condition ICD9-CM Code [id number] Code Onset Dates Condition S tatus SNOMED Code Problem Lumbago with sciatica, left side M54.42 Active 620962297 Problem Acute left ankle pain M25.572 Active 57249666626325 Problem Thoracic spine pain M54.6 Active 182820581 Problem Irregular periods N92.6 Active 80 205393 Problem Gestational diabetes O24.419 Active 55728728 Problem Post herpetic neuralgia B02.29 Active 4955500 Problem Pain in right wrist M25.531 Active 20908940 Problem Left wrist pain M25.532 Active 5660 8008 Problem Reactive airway disease, mild persistent, uncomplicated J45.30 Active 150985791993 Problem Plantar fasciitis M72.2 Active 20 1712986 Problem Chronic idiopathic constipation K59.09 Active 96869394 Problem History of gestational diabetes Z86.32 Active 772186063 Problem Prediabetes R73.09 Active 45722834 2 Problem Thyroid disorder screen Z13.29 Active 389509580 Problem Depression with anxiety F41.8 Active 950906909 Problem Fibromyalgia M79.7 Active 6075607 05 Problem Chronic GERD K21.9 Active 4360284 09 Problem Mixed hyperlipidemia E78.2 Active 981052517 Problem Lumbago of lumbar region with sciatica M54.40 Active 24484040 Problem Other chronic pain G89.29 Active 8 1408940 ALLERGIES Unknown Allergies SOCIAL HISTORY No smoking Hx information available PLAN OF CARE VITAL SIGNS MEDICATIONS Medication Instructions Dosage Frequency Start Date End Date Duration S tatus Pantoprazole Sodium 40 MG Orally Once a day 1 tablet 24h Jul 30 day(s) Active RESULTS No Results PROCEDURES No Known procedures IMMUNIZATIONS No Known Immunizations
--- OUTSIDE RECORDS SUMMARY | 2020-03-15 21:28 | XMS REPORT ---
Author Author Solange Sultana [facility] Address [address], [place] [id number] Care Team Providers Care Director Music Name Role Phone Felisha Sultana Unavailable PROBLEMS Type Condition ICD9-CM Code [id number] Code Onset Dates Condition S tatus SNOMED Code Problem History of gestational diabetes Z86.32 Active 327952264 Problem Gestational diabetes O24.419 Active 44974733 Problem Chronic GERD K21.9 Active 1537331 09 Problem Prediabetes R73.09 Active 95031520 2 Problem Fibromyalgia M79.7 Active 8268585 05 Problem Mixed hyperlipidemia E78.2 Active 102646142 Problem Depression with anxiety F41.8 Active 533437239 Problem Vitamin D deficiency E55.9 Active 52638923 Problem Lumbago of lumbar region with sciatica M54.40 Active 33068253 Problem Prediabetes R73.03 Active 91481146 2 Problem Chronic idiopathic constipation K59.09 Active 64989028 Problem Other elevated white blood cell (WBC) count D72.82 8 Active 297819800 Problem Absent periods N91.2 Active 05627 001 Problem Generalized anxiety disorder F41.1 A ctive 75945498 Problem Irritable bowel syndrome with diarrhea K58.0 Active 280980844 Problem Cigarette nicotine dependence, uncomplicated F17.2 10 Active 97332493 Problem Other chronic pain G89.29 Active 8 3746998 Problem Acute left ankle pain M25.572 Active 64397331016653 Problem Thoracic spine pain M54.6 Active 505953825 Problem Left hand pain M79.642 Active 05581 0337773535 Problem Decreased hearing of left ear H91.92 Active 16090183 Problem Elevated blood pressure reading R03.0 Active 98078865 Problem Cervical pain M54.2 Active 527183 05 Problem Left wrist pain M25.532 Active 5660 8008 Problem Plantar fasciitis M72.2 Active 20 2138890 Problem Lumbago with sciatica, left side M54.42 Active 358495180 Problem Pain in right wrist M25.531 Active 86697946 Problem Irregular periods N92.6 Active 80 329262 Problem Other fatigue R53.83 Active 477362 01 Problem Reactive airway disease, mild persistent, uncomplicated J45.30 Active 630385839723 Problem Post herpetic neuralgia B02.29 Active 3415397 ALLERGIES Substance Reaction Event Type Date Status Oxycodone HCl vomitting Drug Allergy Jun, Active Hydrocodone-Acetaminophen vomitting Drug Allergy Jun, Ac tive ENCOUNTERS Encounter Location Date Diagnosis [address] [address] Jun, Butterfly rash R21 ; Influenza vaccine n eeded Z23 ; Prediabetes R73.09 ; Mixed hyperlipidemia E78.2 and Vitamin D deficiency E55.[address] [address] Apr, Left ankle swelling M25.[address] [address] Apr, [address] [address] Apr, [address] [address] Mar, Edema of left foot R60.[address] [address] Mar, Irritable bowel syndrome with diarrhea K 58.0 [facility] [address] [place] [address] Mar, [facility] [address] [place] [address] Mar, [address] [address] Mar, [facility] [address] [place] [address] Feb, Irritable bowel syndrome with diarrhea K 58.[address] [address] Feb, [facility] [address] [place] [address] Feb, Irritable bowel syndrome with diarrhea K 58.0 [facility] [address] [place] [address] Feb, control counseling Z30.09 ; Lumbag o with sciatica, left side M54.42 and Chronic GERD K21.9 [facility] [address] [place] [address] Feb, [facility] [address] [place] [address] Feb, [facility] [address] [place] [address] Feb, [facility] [address] [place] [address] Feb, Diarrhea, unspecified type R19.7 [facility] [address] [place] [address] Feb, Abnormal glucose R73.09 [facility] [address] [place] [address] Feb, Abnormal glucose R73.09 [facility] [address] [place] [address] Feb, Reactive airway disease, mild persistent , uncomplicated J45.30 [facility] [address] [place] [address] 04 Feb, 2018 Lumbago with sciatica, left side M54.42 ; Cigarette nicotine dependence, uncomplicated F17.210 ; Diarrhea, unspecified type R19.7 and Abnormal glucose R73.09 [facility] [address] [place] [address] January, [facility] [address] [place] [address] January, [facility] [address] [place] [address] January, [facility] [address] [place] [address] January, [facility] [address] [place] [address] January, Muscle strain of chest wall, initial enc ounter S29.011A ; Physical exam Z00.00 ; Need for hepatitis vaccination Z23 and Abscess L02.[address] [address] Dec, Left hand pain M79.642 ; Thoracic spine pain M54.6 ; Cervical pain M54.2 and Elevated blood pressure reading R03.[address] [address] Dec, Lumbago with sciatica, left side M54.42 and Decreased hearing of left ear H91.[address] [address] Dec, Other chest pain R07.89 ; Finger pain, l eft M79.645 ; Chronic GERD K21.9 and Muscle strain of chest wall, initial encounter S29.011A [address] [address] Dec, [address] [address] Dec, Other constipation K59.09 ; Irregular pe riods N92.6 and Absent periods N91.[address] [address] Oct, [address] [address] Oct, Weight gain R63.[address] [address] Oct, Generalized anxiety disorder F41.[address] [address] Sep, [address] [address] Sep, Absent periods N91.2 and Decreased heari ng of left ear H91.[address] [address] Sep, [address] [address] 12 Sep, 2017 Pre-op exam Z01.818 and Abscess of chest wall L02.[address] [address] Sep, [address] [address] Sep, Prediabetes R73.09 ; Vitamin D deficienc y E55.9 ; Mixed hyperlipidemia E78.2 and Arthritis of ankle, left M19.[address] [address] Sep, Smoking trying to quit Z72.0 ; Chronic G ERD K21.9 ; Generalized anxiety disorder F41.1 ; Other chest pain R07.89 ; Other constipation K59.09 and Right upper quadrant pain R10.[address] [address] Aug, [address] [address] Aug, Other chronic pain G89.[address] [address] 14 Aug, 2017 Mixed hyperlipidemia E78.2 ; Fibromyalgi a M79.7 ; Lumbago of lumbar region with sciatica M54.40 ; History of gestational diabetes Z86.32 ; Prediabetes R73.09 ; Vitamin D deficiency E55.9 ; Weight gain R63.5 ; control counseling Z30.09 ; Pain, dental K08.89 and Flank pain R10.[address] [address] Aug, [address] [address] Jun, Acute left ankle pain M25.[address] [address] Jun, [address] [address] Jun, [address] [place] [address] Jun, Acute left ankle pain M25.572 [facility] [address] [place] [address] Jun, [facility] [address] [place] [address] Jun, Acute left ankle pain M25.[address] [facility] [address] [place] [address] Jun, Influenza vaccine needed Z23 and Irregul ar periods N92.6 [facility] [address] [place] [address] May, Mixed hyperlipidemia E78.[address] [facility] [address] [place] [address] May, [facility] [address] [place] [address] May, Chronic GERD K21.9 [facility] [address] [place] [address] Apr, Weight gain R63.5 [facility] [address] [place] [address] Apr, Chronic GERD K21.9 and Weight gain R63.5 [facility] [address] [place] [address] Mar, Depression with anxiety F41.8 and Chroni c idiopathic constipation K59.09 [facility] [address] [place] [address] Mar, Other chronic pain G89.29 [facility] [address] [place] [address] Mar, Post herpetic neuralgia B02.29 [facility] [address] [place] [address] Mar, Post herpetic neuralgia B02.29 [facility] [address] [place] [address] Mar, [facility] [address] [place] [address] Mar, Other elevated white blood cell (WBC) co unt D72.[address] [address] Mar, Other elevated white blood cell (WBC) co unt D72.828 and Dyslipidemia E78.[address] [address] Feb, [address] [address] Feb, Vitamin D deficiency E55.9 ; Dyslipidemi a E78.5 ; Other elevated white blood cell (WBC) count D72.828 and Skin tag L91.[address] [address] Feb, [address] [address] Feb, Vitamin D deficiency E55.9 and Dyslipide sourav E78.[address] [address] Feb, [address] [address] Feb, Post herpetic neuralgia B02.29 ; Thyroid disorder screen Z13.29 ; Mixed hyperlipidemia E78.2 ; Chronic GERD K21.9 ; Lumbago of lumbar region with sciatica M54.40 ; Prediabetes R73.03 ; Other fatigue R53.83 ; Vitamin D deficiency E55.9 and Vitamin B 12 deficiency E53.[address] [address] Feb, Reactive airway disease, mild persistent , uncomplicated J45.[address] [address] Feb, Chronic GERD K21.[address] [address] Feb, Mixed hyperlipidemia E78.2 and Other chr onic pain G89.[address] [address] Feb, Lumbago with sciatica, left side M54.42 ; Mixed hyperlipidemia E78.2 and Reactive airway disease, mild persistent, uncomplicated J45.[address] [address] Feb, Chronic GERD K21.9 [facility] [address] [place] [address] Feb, [facility] [address] [place] [address] Feb, [facility] [address] [place] [address] Feb, Post herpetic neuralgia B02.[address] [address] Feb, Allergic contact dermatitis due to other agents L23.89 and Post herpetic neuralgia B02.[address] [address] Feb, Chronic GERD K21.[address] [address] Feb, Chronic GERD K21.[address] [address] January, Post herpetic neuralgia B02.[address] [address] January, Lumbago with sciatica, left side M54.42 [facility] [address] [place] [address] January, [facility] [address] [place] [address] January, Lumbago of lumbar region with sciatica M 54.[address] [address] January, Other chronic pain G89.29 and Lumbago wi th sciatica, left side M54.[address] [address] January, Depression with anxiety F41.8 [facility] [address] [place] [address] January, Mixed hyperlipidemia E78.2 [facility] [address] [place] [address] January, Abscess of left groin L02.[address] [address] Dec, Depression with anxiety F41.8 [facility] [address] [place] [address] Dec, Irregular periods N92.[address] [address] Nov, Left wrist pain M25.532 and Acute left a nkle pain M25.[address] [address] Nov, Post herpetic neuralgia B02.29 and Absce ss of left groin L02.[address] [address] Sep, Irregular periods N92.[address] [address] Sep, Mixed hyperlipidemia E78.2 ; Flank pain R10.9 and Post herpetic neuralgia B02.[address] [address] Aug, Lumbago of lumbar region with sciatica M 54.40 ; Chronic idiopathic constipation K59.09 ; Depression with anxiety F41.8 and Mixed hyperlipidemia E78.[address] [address] Aug, Other chronic pain G89.[address] [address] Aug, Reactive airway disease, mild persistent , uncomplicated J45.[address] [address] Aug, [address] [address] Aug, Cough R05 and Allergic contact dermatiti s due to other agents L23.[address] [address] Aug, [address] [address] Jul, Other chronic pain G89.[address] [address] Jul, Upper respiratory tract infection, unspe cified type J06.9 ; Chronic GERD K21.9 ; Acute left ankle pain M25.572 and Lumbago of lumbar region with sciatica M54.[address] [address] Jun, Other chronic pain G89.[address] [address] Jun, [address] [address] Jun, [address] [address] Jun, Chronic GERD K21.[address] [address] Jun, [address] [address] May, Pain in right wrist M25.531 ; Left wrist pain M25.532 ; Acute left ankle pain M25.572 ; Thoracic spine pain M54.6 ; Lumbago with sciatica, left side M54.42 ; Other chronic pain G89.29 and Dysuria R30.[address] [address] May, Chronic GERD K21.[address] [address] May, Chronic GERD K21.[address] [address] May, [address] [place] [address] May, [facility] [address] [place] [address] May, [facility] [address] [place] [address] May, [facility] [address] [place] [address] May, Mixed hyperlipidemia E78.2 ; Fibromyalgi a M79.7 ; Depression with anxiety F41.8 ; Lumbago of lumbar region with sciatica M54.40 ; Encounter to establish care Z76.89 ; Chronic GERD K21.9 ; History of gestational diabetes Z86.32 ; Chronic idiopathic constipation K59.09 ; Thyroid disorder screen Z13.29 and Need for influenza vaccination Z23 [facility] [address] [place] [phone] Apr, Gestational diabetes O24.419 [facility] [address] [place] [phone] Feb, Gestational diabetes O24.419 IMMUNIZATIONS Vaccine Route Administration Date Status Influenza Split 3 yrs > (QUAD) IM Intramuscular Jun 24, 2018 Administered VITAMIN B-12 IM Intramuscular Jun 24, 2018 Administered SOCIAL HISTORY Never Assessed REASON FOR VISIT fu PLAN OF CARE Activity Details Follow Up 2 Months, prn Reason:f/u and [place] Pending Test Hemoglobin A1c Pending Test Sedimentation Rate, Modified Westergren (ESR) 35956 Pending Test Rheumatoid Arthritis Factor Pending Test C-Reactive Protein (CRP), Qu ant 20712 Pending Test Vitamin D, 25-Hydroxy 23936 Pending Test Antinuclear Antibodies (KORINA) w/Reflex to Multiple Confirmatory Tests 98440 Pending Test Lipid Panel 15389 VITAL SIGNS Height 69.5 in 2018-06-24 Weight [...] with f ood 24h Sep, Not-Taking RESULTS No Results PROCEDURES Procedure Date [...]
--- OUTSIDE RECORDS SUMMARY | 2020-03-15 21:28 | XMS REPORT ---
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 Name Role Phone Felisha Sultana Unavailable PROBLEMS Type Condition ICD9-CM Code YMD33-HC Code Onset Dates Condition S tatus SNOMED Code Problem Gestational diabetes O24.419 Active 07725493 Problem Lumbago of lumbar region with sciatica M54.40 Active 45430476 Problem Chronic idiopathic constipation K59.09 Active 01558282 Problem Thyroid disorder screen Z13.29 Active 162335841 Problem History of gestational diabetes Z86.32 Active 975383689 Problem Chronic GERD K21.9 Active 2848085 09 Problem Prediabetes R73.09 Active 56845476 2 Problem Fibromyalgia M79.7 Active 5472013 05 Problem Vitamin D deficiency E55.9 Active 59825164 Problem Mixed hyperlipidemia E78.2 Active 806505572 Problem Prediabetes R73.03 Active 38449592 2 Problem Depression with anxiety F41.8 Active 266865321 Problem Other elevated white blood cell (WBC) count D72.82 8 Active 199964575 Problem Absent periods N91.2 Active 44489 001 Problem Generalized anxiety disorder F41.1 A ctive 41615750 Problem Irritable bowel syndrome with diarrhea K58.0 Active 033971240 Problem Cigarette nicotine dependence, uncomplicated F17.2 10 Active 18954068 Problem Pain in right wrist M25.531 Active 49799061 Problem Lumbago with sciatica, left side M54.42 Active 206702147 Problem Other chronic pain G89.29 Active 8 1207040 Problem Left hand pain M79.642 Active 14850 1742505731 Problem Decreased hearing of left ear H91.92 Active 93938371 Problem Cervical pain M54.2 Active 572875 05 Problem Elevated blood pressure reading R03.0 Active 34691145 Problem Thoracic spine pain M54.6 Active 779800237 Problem Plantar fasciitis M72.2 Active 20 6176793 Problem Left wrist pain M25.532 Active 5660 8008 Problem Acute left ankle pain M25.572 Active 28450577496844 Problem Irregular periods N92.6 Active 80 821866 Problem Other fatigue R53.83 Active 571818 01 Problem Reactive airway disease, mild persistent, uncomplicated J45.30 Active 715404408854 Problem Post herpetic neuralgia B02.29 Active 0767219 ALLERGIES No Information ENCOUNTERS Encounter Location Date Diagnosis [facility] [address] [place] [address] Apr, [facility] [address] [place] [address] Mar, Edema of left foot R60.0 [facility] [address] [place] [address] Mar, Irritable bowel syndrome with diarrhea K 58.0 [facility] [address] [place] [address] Mar, [facility] [address] [place] [address] Mar, [facility] [address] [place] [address] Mar, [facility] [address] [place] [address] Feb, Irritable bowel syndrome with diarrhea K 58.0 [facility] [address] [place] [address] Feb, [facility] [address] [place] [address] Feb, Irritable bowel syndrome with diarrhea K 58.0 [facility] [address] [place] [address] Feb, control counseling Z30.09 ; Lumbag o with sciatica, left side M54.42 and Chronic GERD K21.9 [facility] [address] [place] [address] Feb, [facility] [address] [place] [address] Feb, [address] [address] Feb, [address] [address] Feb, Diarrhea, unspecified type R19.[address] [address] Feb, Abnormal glucose R73.[address] [address] Feb, Abnormal glucose R73.[address] [address] Feb, Reactive airway disease, mild persistent , uncomplicated J45.[address] [address] Feb, Lumbago with sciatica, left side M54.42 ; Cigarette nicotine dependence, uncomplicated F17.210 ; Diarrhea, unspecified type R19.7 and Abnormal glucose R73.[address] [address] January, [address] [address] January, [address] [address] January, [address] [address] January, [address] [address] January, Muscle strain of chest wall, initial enc ounter S29.011A ; Physical exam Z00.00 ; Need for hepatitis vaccination Z23 and Abscess L02.[address] [address] Dec, Left hand pain M79.642 ; Thoracic spine pain M54.6 ; Cervical pain M54.2 and Elevated blood pressure reading R03.[address] [address] Dec, Lumbago with sciatica, left side M54.42 and Decreased hearing of left ear H91.[address] [address] Dec, Other chest pain R07.89 ; Finger pain, l eft M79.645 ; Chronic GERD K21.9 and Muscle strain of chest wall, initial encounter S29.011A [address] [address] Dec, [address] [address] Dec, Other constipation K59.09 ; Irregular pe riods N92.6 and Absent periods N91.[address] [address] Oct, [address] [address] Oct, Weight gain R63.[address] [address] Oct, Generalized anxiety disorder F41.[address] [address] Sep, [address] [address] Sep, Absent periods N91.2 and Decreased heari ng of left ear H91.[address] [address] Sep, [address] [address] Sep, Pre-op exam Z01.818 and Abscess of chest wall L02.[address] [address] Sep, [address] [address] Sep, Prediabetes R73.09 ; Vitamin D deficienc y E55.9 ; Mixed hyperlipidemia E78.2 and Arthritis of ankle, left M19.[address] [address] Sep, Smoking trying to quit Z72.0 ; Chronic G ERD K21.9 ; Generalized anxiety disorder F41.1 ; Other chest pain R07.89 ; Other constipation K59.09 and Right upper quadrant pain R10.11 [facility] [address] [place] [address] Aug, [address] [address] Aug, Other chronic pain G89.[address] [address] Aug, Mixed hyperlipidemia E78.2 ; Fibromyalgi a M79.7 ; Lumbago of lumbar region with sciatica M54.40 ; History of gestational diabetes Z86.32 ; Prediabetes R73.09 ; Vitamin D deficiency E55.9 ; Weight gain R63.5 ; control counseling Z30.09 ; Pain, dental K08.89 and Flank pain R10.[address] [address] Aug, [address] [address] Jun, Acute left ankle pain M25.[address] [address] Jun, [address] [address] Jun, [address] [address] Jun, Acute left ankle pain M25.[address] [address] Jun, [address] [address] Jun, Acute left ankle pain M25.[address] [address] Jun, Influenza vaccine needed Z23 and Irregul ar periods N92.[address] [place] [address] May, Mixed hyperlipidemia E78.2 [facility] [address] [place] [address] May, [facility] [address] [place] [address] May, Chronic GERD K21.9 [facility] [address] [place] [address] Apr, Weight gain R63.5 [facility] [address] [place] [address] Apr, Chronic GERD K21.9 and Weight gain R63.[address] [address] Mar, Depression with anxiety F41.8 and Chroni c idiopathic constipation K59.[address] [address] Mar, Other chronic pain G89.[address] [address] Mar, Post herpetic neuralgia B02.[address] [address] Mar, Post herpetic neuralgia B02.[address] [address] Mar, [address] [address] Mar, Other elevated white blood cell (WBC) co unt D72.828 [facility] [address] [place] [address] Mar, Other elevated white blood cell (WBC) co unt D72.828 and Dyslipidemia E78.[address] [address] Feb, [address] [address] Feb, Vitamin D deficiency E55.9 ; Dyslipidemi a E78.5 ; Other elevated white blood cell (WBC) count D72.828 and Skin tag L91.[address] [address] Feb, [address] [address] Feb, Vitamin D deficiency E55.9 and Dyslipide sourav E78.[address] [address] Feb, [address] [address] Feb, Post herpetic neuralgia B02.29 ; Thyroid disorder screen Z13.29 ; Mixed hyperlipidemia E78.2 ; Chronic GERD K21.9 ; Lumbago of lumbar region with sciatica M54.40 ; Prediabetes R73.03 ; Other fatigue R53.83 ; Vitamin D deficiency E55.9 and Vitamin B 12 deficiency E53.[address] [address] Feb, Reactive airway disease, mild persistent , uncomplicated J45.[address] [address] Feb, Chronic GERD K21.[address] [address] Feb, Mixed hyperlipidemia E78.2 and Other chr onic pain G89.[address] [address] Feb, Lumbago with sciatica, left side M54.42 ; Mixed hyperlipidemia E78.2 and Reactive airway disease, mild persistent, uncomplicated J45.[address] [address] Feb, Chronic GERD K21.[address] [address] Feb, [address] [address] Feb, [address] [address] 16 Feb, 2017 Post herpetic neuralgia B02.29 [facility] [address] [place] [address] 16 Feb, 2017 Allergic contact dermatitis due to other agents L23.89 and Post herpetic neuralgia B02.29 [facility] [address] [place] [address] 16 Feb, 2017 Chronic GERD K21.9 [facility] [address] [place] [address] 13 Feb, 2017 Chronic GERD K21.9 [facility] [address] [place] [address] January, Post herpetic neuralgia B02.29 [facility] [address] [place] [address] January, Lumbago with sciatica, left side M54.42 [facility] [address] [place] [address] January, [facility] [address] [place] [address] January, Lumbago of lumbar region with sciatica M 54.40 [facility] [address] [place] [address] January, Other chronic pain G89.29 and Lumbago wi th sciatica, left side M54.42 [facility] [address] [place] [address] January, Depression with anxiety F41.8 [facility] [address] [place] [address] January, Mixed hyperlipidemia E78.2 [facility] [address] [place] [address] January, Abscess of left groin L02.214 [facility] [address] [place] [address] Dec, Depression with anxiety F41.8 [facility] [address] [place] [address] Dec, Irregular periods N92.6 [facility] [address] [place] [address] Nov, Left wrist pain M25.532 and Acute left a nkle pain M25.[address] [address] Nov, Post herpetic neuralgia B02.29 and Absce ss of left groin L02.[address] [address] Sep, Irregular periods N92.[address] [address] Sep, Mixed hyperlipidemia E78.2 ; Flank pain R10.9 and Post herpetic neuralgia B02.[address] [address] Aug, Lumbago of lumbar region with sciatica M 54.40 ; Chronic idiopathic constipation K59.09 ; Depression with anxiety F41.8 and Mixed hyperlipidemia E78.[address] [address] Aug, Other chronic pain G89.[address] [address] Aug, Reactive airway disease, mild persistent , uncomplicated J45.[address] [address] Aug, [address] [address] Aug, Cough R05 and Allergic contact dermatiti s due to other agents L23.[address] [address] Aug, [address] [address] Jul, Other chronic pain G89.[address] [address] Jul, Upper respiratory tract infection, unspe cified type J06.9 ; Chronic GERD K21.9 ; Acute left ankle pain M25.572 and Lumbago of lumbar region with sciatica M54.[address] [address] Jun, Other chronic pain G89.[address] [address] Jun, [address] [address] Jun, [address] [address] Jun, Chronic GERD K21.[address] [address] Jun, [address] [address] 30 May, 2016 Pain in right wrist M25.531 ; Left wrist pain M25.532 ; Acute left ankle pain M25.572 ; Thoracic spine pain M54.6 ; Lumbago with sciatica, left side M54.42 ; Other chronic pain G89.29 and Dysuria R30.[address] [address] May, Chronic GERD K21.[address] [address] May, Chronic GERD K21.[address] [address] May, [address] [address] May, [address] [address] May, [address] [address] May, [address] [address] 16 May, 2016 Mixed hyperlipidemia E78.2 ; Fibromyalgi a M79.7 ; Depression with anxiety F41.8 ; Lumbago of lumbar region with sciatica M54.40 ; Encounter to establish care Z76.89 ; Chronic GERD K21.9 ; History of gestational diabetes Z86.32 ; Chronic idiopathic constipation K59.09 ; Thyroid disorder screen Z13.29 and Need for influenza vaccination Z23 [facility] [address] [place] [address] Apr, Gestational diabetes O24.419 [facility] [address] [place] [address] Feb, Gestational diabetes O24.419 IMMUNIZATIONS No Known Immunizations SOCIAL HISTORY Never Assessed REASON FOR VISIT Call ms PLAN OF CARE VITAL SIGNS MEDICATIONS Unknown [...] History Fused L ankle 09/2017 Hospitalization History [facility]- Hyperglycemia and February 2016 Hospitalization History Ankle surgery 09/2017
--- OUTSIDE RECORDS SUMMARY | 2020-03-15 21:28 | XMS REPORT ---
Author Author Solange Sultana [facility] Address [address] [place], [place] [id number] Care Team Providers Care Clinical Courier Name Role Phone Felisha Sultana Unavailable PROBLEMS Type Condition ICD9-CM Code ABZ85-RI Code Onset Dates Condition S tatus SNOMED Code Problem Gestational diabetes O24.419 Active 33817538 Problem Lumbago of lumbar region with sciatica M54.40 Active 59938081 Problem Chronic idiopathic constipation K59.09 Active 94365757 Problem Thyroid disorder screen Z13.29 Active 007318231 Problem History of gestational diabetes Z86.32 Active 966047132 Problem Chronic GERD K21.9 Active 7815886 09 Problem Prediabetes R73.09 Active 55041841 2 Problem Fibromyalgia M79.7 Active 9435977 05 Problem Vitamin D deficiency E55.9 Active 12930535 Problem Mixed hyperlipidemia E78.2 Active 324799339 Problem Prediabetes R73.03 Active 37867832 2 Problem Depression with anxiety F41.8 Active 401462372 Problem Other elevated white blood cell (WBC) count D72.82 8 Active 527541916 Problem Absent periods N91.2 Active 33105 001 Problem Generalized anxiety disorder F41.1 A ctive 40784132 Problem Irritable bowel syndrome with diarrhea K58.0 Active 094227803 Problem Cigarette nicotine dependence, uncomplicated F17.2 10 Active 80026464 Problem Pain in right wrist M25.531 Active 72518146 Problem Lumbago with sciatica, left side M54.42 Active 408083921 Problem Other chronic pain G89.29 Active 8 2854134 Problem Left hand pain M79.642 Active 62733 1744913834 Problem Decreased hearing of left ear H91.92 Active 76276263 Problem Cervical pain M54.2 Active 119732 05 Problem Elevated blood pressure reading R03.0 Active 40327880 Problem Thoracic spine pain M54.6 Active 891879439 Problem Plantar fasciitis M72.2 Active 20 6158883 Problem Left wrist pain M25.532 Active 5660 8008 Problem Acute left ankle pain M25.572 Active 67361237070400 Problem Irregular periods N92.6 Active 80 598355 Problem Other fatigue R53.83 Active 380869 01 Problem Reactive airway disease, mild persistent, uncomplicated J45.30 Active 464183208020 Problem Post herpetic neuralgia B02.29 Active 7424306 ALLERGIES Substance Reaction Event Type Date Status Oxycodone HCl vomitting Drug Allergy Apr, Active Hydrocodone-Acetaminophen vomitting Drug Allergy Apr, Ac tive ENCOUNTERS Encounter Location Date Diagnosis [facility] [address] [place] [address] Apr, Left ankle swelling M25.472 [facility] [address] [place] [address] Apr, [facility] [address] [place] [address] Apr, [facility] [address] [place] [address] Mar, Edema of left foot R60.0 [facility] [address] [place] [address] Mar, Irritable bowel syndrome with diarrhea K 58.0 [facility] [address] [place] [address] Mar, [facility] ([facility]3] [facility] [address] [place] [address] Mar, [facility] [address] [place] [address] Mar, [facility]3] [facility] [address] [place] [address] Feb, Irritable bowel syndrome with diarrhea K 58.0 [facility] [address] [place] [address] Feb, [facility] [address] [place] [address] Feb, Irritable bowel syndrome with diarrhea K 58.0 [facility] [address] [place] [address] Feb, control counseling Z30.09 ; Lumbag o with sciatica, left side M54.42 and Chronic GERD K21.[address] [address] 18 Feb, [address] [address] Feb, [address] [address] Feb, [address] [address] Feb, Diarrhea, unspecified type R19.[address] [address] Feb, Abnormal glucose R73.[address] [address] Feb, Abnormal glucose R73.[address] [address] Feb, Reactive airway disease, mild persistent , uncomplicated J45.[address] [address] Feb, Lumbago with sciatica, left side M54.42 ; Cigarette nicotine dependence, uncomplicated F17.210 ; Diarrhea, unspecified type R19.7 and Abnormal glucose R73.[address] [address] January, [address] [address] January, [address] [address] January, [address] [address] January, [address] [address] January, Muscle strain of chest wall, initial enc ounter S29.011A ; Physical exam Z00.00 ; Need for hepatitis vaccination Z23 and Abscess L02.[address] [address] Dec, Left hand pain M79.642 ; Thoracic spine pain M54.6 ; Cervical pain M54.2 and Elevated blood pressure reading R03.[address] [address] Dec, Lumbago with sciatica, left side M54.42 and Decreased hearing of left ear H91.[address] [address] Dec, Other chest pain R07.89 ; Finger pain, l eft M79.645 ; Chronic GERD K21.9 and Muscle strain of chest wall, initial encounter S29.011A [address] [address] Dec, [address] [address] Dec, Other constipation K59.09 ; Irregular pe riods N92.6 and Absent periods N91.[address] [address] Oct, [address] [address] Oct, Weight gain R63.[address] [address] Oct, Generalized anxiety disorder F41.[address] [address] Sep, [address] [address] Sep, Absent periods N91.2 and Decreased heari ng of left ear H91.[address] [address] Sep, [address] [address] Sep, Pre-op exam Z01.818 and Abscess of chest wall L02.[address] [place] [address] Sep, [address] [address] Sep, Prediabetes R73.09 ; Vitamin D deficienc y E55.9 ; Mixed hyperlipidemia E78.2 and Arthritis of ankle, left M19.[address] [address] Sep, Smoking trying to quit Z72.0 ; Chronic G ERD K21.9 ; Generalized anxiety disorder F41.1 ; Other chest pain R07.89 ; Other constipation K59.09 and Right upper quadrant pain R10.[address] [address] Aug, [address] [address] Aug, Other chronic pain G89.[address] [address] Aug, Mixed hyperlipidemia E78.2 ; Fibromyalgi a M79.7 ; Lumbago of lumbar region with sciatica M54.40 ; History of gestational diabetes Z86.32 ; Prediabetes R73.09 ; Vitamin D deficiency E55.9 ; Weight gain R63.5 ; control counseling Z30.09 ; Pain, dental K08.89 and Flank pain R10.[address] [address] Aug, [address] [address] Jun, Acute left ankle pain M25.[address] [address] Jun, [address] [address] Jun, [address] [address] Jun, Acute left ankle pain M25.[address] [address] Jun, [facility] [address] [place] [address] Jun, Acute left ankle pain M25.572 [facility] [address] [place] [address] Jun, Influenza vaccine needed Z23 and Irregul ar periods N92.6 [facility] [address] [place] [address] May, Mixed hyperlipidemia E78.2 [facility] [address] [place] [address] May, [facility] [address] [place] [address] May, Chronic GERD K21.9 [facility] [address] [place] [address] Apr, Weight gain R63.5 [facility] [address] [place] [address] Apr, Chronic GERD K21.9 and Weight gain R63.5 [facility] [address] [place] [address] Mar, Depression with anxiety F41.8 and Chroni c idiopathic constipation K59.09 [facility] [address] [place] [address] Mar, Other chronic pain G89.29 [facility] [address] [place] [address] Mar, Post herpetic neuralgia B02.29 [facility] [address] [place] [address] Mar, Post herpetic neuralgia B02.29 [facility] [address] [place] [address] Mar, [facility] [address] [place] [address] Mar, Other elevated white blood cell (WBC) co unt D72.828 [facility] [address] [place] [address] Mar, Other elevated white blood cell (WBC) co unt D72.828 and Dyslipidemia E78.[address] [address] Feb, [address] [address] Feb, Vitamin D deficiency E55.9 ; Dyslipidemi a E78.5 ; Other elevated white blood cell (WBC) count D72.828 and Skin tag L91.[address] [address] Feb, [address] [address] Feb, Vitamin D deficiency E55.9 and Dyslipide sourav E78.[address] [address] Feb, [address] [address] Feb, Post herpetic neuralgia B02.29 ; Thyroid disorder screen Z13.29 ; Mixed hyperlipidemia E78.2 ; Chronic GERD K21.9 ; Lumbago of lumbar region with sciatica M54.40 ; Prediabetes R73.03 ; Other fatigue R53.83 ; Vitamin D deficiency E55.9 and Vitamin B 12 deficiency E53.[address] [address] Feb, Reactive airway disease, mild persistent , uncomplicated J45.[address] [address] Feb, Chronic GERD K21.[address] [address] Feb, Mixed hyperlipidemia E78.2 and Other chr onic pain G89.[address] [address] Feb, Lumbago with sciatica, left side M54.42 ; Mixed hyperlipidemia E78.2 and Reactive airway disease, mild persistent, uncomplicated J45.[address] [place] [address] Feb, Chronic GERD K21.9 [facility] [address] [place] [address] Feb, [facility] [address] [place] [address] Feb, [facility] [address] [place] [address] Feb, Post herpetic neuralgia B02.29 [facility] [address] [place] [address] Feb, Allergic contact dermatitis due to other agents L23.89 and Post herpetic neuralgia B02.29 [facility] [address] [place] [address] 16 Feb, 2017 Chronic GERD K21.[address] [address] Feb, Chronic GERD K21.9 [facility] [address] [place] [address] January, Post herpetic neuralgia B02.29 [facility] [address] [place] [address] January, Lumbago with sciatica, left side M54.42 [facility] [address] [place] [address] January, [address] [address] January, Lumbago of lumbar region with sciatica M 54.40 [facility] [address] [place] [address] January, Other chronic pain G89.29 and Lumbago wi th sciatica, left side M54.[address] [address] January, Depression with anxiety F41.8 [facility] [address] [place] [address] January, Mixed hyperlipidemia E78.2 [facility] [address] [place] [address] January, Abscess of left groin L02.[address] [address] Dec, Depression with anxiety F41.[address] [address] Dec, Irregular periods N92.[address] [address] Nov, Left wrist pain M25.532 and Acute left a nkle pain M25.[address] [address] Nov, Post herpetic neuralgia B02.29 and Absce ss of left groin L02.[address] [address] Sep, Irregular periods N92.[address] [address] Sep, Mixed hyperlipidemia E78.2 ; Flank pain R10.9 and Post herpetic neuralgia B02.[address] [address] Aug, Lumbago of lumbar region with sciatica M 54.40 ; Chronic idiopathic constipation K59.09 ; Depression with anxiety F41.8 and Mixed hyperlipidemia E78.[address] [address] Aug, Other chronic pain G89.[address] [address] Aug, Reactive airway disease, mild persistent , uncomplicated J45.[address] [address] Aug, [address] [address] Aug, Cough R05 and Allergic contact dermatiti s due to other agents L23.[address] [address] Aug, [facility] [address] [place] [address] Jul, Other chronic pain G89.29 [facility] [address] [place] [address] Jul, Upper respiratory tract infection, unspe cified type J06.9 ; Chronic GERD K21.9 ; Acute left ankle pain M25.572 and Lumbago of lumbar region with sciatica M54.40 [facility] [address] [place] [address] Jun, Other chronic pain G89.29 [facility] [address] [place] [address] Jun, [facility] [address] [place] [address] Jun, [address] [address] Jun, Chronic GERD K21.[address] [address] Jun, [facility] [address] [place] [address] May, Pain in right wrist M25.531 ; Left wrist pain M25.532 ; Acute left ankle pain M25.572 ; Thoracic spine pain M54.6 ; Lumbago with sciatica, left side M54.42 ; Other chronic pain G89.29 and Dysuria R30.0 [facility] [address] [place] [address] May, Chronic GERD K21.9 [facility] [address] [place] [address] May, Chronic GERD K21.[address] [address] May, [address] [address] 19 May, [address] [address] 16 May, 2016 [facility] [address] [place] [address] May, [facility] [address] [place] [address] May, Mixed hyperlipidemia E78.2 ; Fibromyalgi a M79.7 ; Depression with anxiety F41.8 ; Lumbago of lumbar region with sciatica M54.40 ; Encounter to establish care Z76.89 ; Chronic GERD K21.9 ; History of gestational diabetes Z86.32 ; Chronic idiopathic constipation K59.09 ; Thyroid disorder screen Z13.29 and Need for influenza vaccination Z23 [facility] [address] [place] [address] Apr, Gestational diabetes O24.419 [facility] [address] [place] [address] Feb, Gestational diabetes O24.419 IMMUNIZATIONS No Known Immunizations SOCIAL HISTORY Never Assessed REASON FOR VISIT PLAN OF CARE VITAL SIGNS Height 69.5 in 2018-05-23 Weight 321 lbs 2018-05-23 Temperature 98.3 degrees Fahrenheit 2018-05-23 Heart Rate 86 /min 2018-05-23 Oximetry 96 % 2018-05-23 BMI 46.72 kg/m2 2018-05-23 Blood pressure systolic 128 mm Hg 2018-05-23 Blood pressure diastolic 62 mm Hg 2018-05-23 MEDICATIONS Medication Instructions Dosage Frequency Start Date [...] days Active Multivitamin Adult - Act nancy Mobic 15 MG Orally Once a day 1 tablet 24h Jul, 90 d ays Active Wellbutrin SR 150 MG Orally Twice a day 1 tablet 12h Feb, 30 day(s) Active Gralise 600 MG Orally Once a day 1 tablet in the am, 1 tablet with lunch, 3 tablets with evening meal 24h Feb, Ac tive MorphaBond ER 15 MG Orally every 12 hrs 1 tablet 12h Aug, 30 days Not-Taking Victoza 18 MG/3ML Subcutaneous inject 1.8 Once daily as directed Feb, Not-Taking Zoloft 100 MG Orally Once a day 1 tablet 24h Active Nortriptyline HCl 25 MG Orally QHS 1 capsule 30 Active Cyclobenzaprine HCl 10 MG TAKE 1 TABLET BY MOUTH THREE (3) T IMES DAILY 10 Active Ventolin HFA 108 (90 Base) MCG/ACT Inhalation every 4 hrs 2 puffs a s needed 4h Aug, 30 days Active MedroxyPROGESTERone Acetate 10 MG Orally Once a day 1 tablet with f ood 24h Sep, Not-Taking Gabapentin 600 MG Orally five times daily 1 tablet Active Sertraline HCl 100 MG Orally Once a day 2 tablet 24h Active Benefiber - Orally Two times daily 2 May, 30 days Not-Taking Colace 100 MG Orally Once a day 1 capsule as needed 24h 30 Active Fiber Not-Taking RESULTS No Results PROCEDURES No Known procedures [...] 09/[address] [facility]- Hyperglycemia and February 2016 Hospitalization History Ankle surgery 09/2017
--- OUTSIDE RECORDS SUMMARY | 2020-03-15 21:28 | XMS REPORT ---
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 Name Role Phone Felisha Sultana Unavailable PROBLEMS Type Condition ICD9-CM Code OOH68-JV Code Onset Dates Condition S tatus SNOMED Code Problem Gestational diabetes O24.419 Active 75557201 Problem Lumbago of lumbar region with sciatica M54.40 Active 08090632 Problem Chronic idiopathic constipation K59.09 Active 37976719 Problem Thyroid disorder screen Z13.29 Active 225144663 Problem History of gestational diabetes Z86.32 Active 233329233 Problem Chronic GERD K21.9 Active 0232031 09 Problem Prediabetes R73.09 Active 70565159 2 Problem Fibromyalgia M79.7 Active 7073384 05 Problem Vitamin D deficiency E55.9 Active 48288013 Problem Mixed hyperlipidemia E78.2 Active 372541102 Problem Prediabetes R73.03 Active 51687895 2 Problem Depression with anxiety F41.8 Active 750344137 Problem Other elevated white blood cell (WBC) count D72.82 8 Active 680384139 Problem Absent periods N91.2 Active 99484 001 Problem Generalized anxiety disorder F41.1 A ctive 68242442 Problem Irritable bowel syndrome with diarrhea K58.0 Active 644198666 Problem Cigarette nicotine dependence, uncomplicated F17.2 10 Active 79736519 Problem Pain in right wrist M25.531 Active 44387390 Problem Lumbago with sciatica, left side M54.42 Active 253927380 Problem Other chronic pain G89.29 Active 8 7350976 Problem Left hand pain M79.642 Active 30000 1799273673 Problem Decreased hearing of left ear H91.92 Active 68774728 Problem Cervical pain M54.2 Active 340708 05 Problem Elevated blood pressure reading R03.0 Active 35572318 Problem Thoracic spine pain M54.6 Active 196688041 Problem Plantar fasciitis M72.2 Active 20 0947948 Problem Left wrist pain M25.532 Active 5660 8008 Problem Acute left ankle pain M25.572 Active 19768428514836 Problem Irregular periods N92.6 Active 80 196297 Problem Other fatigue R53.83 Active 429107 01 Problem Reactive airway disease, mild persistent, uncomplicated J45.30 Active 054147868137 Problem Post herpetic neuralgia B02.29 Active 7270908 ALLERGIES No Information ENCOUNTERS Encounter Location Date Diagnosis [facility] [address] [place] [address] Apr, [facility] [address] [place] [address] Apr, [facility] [address] [place] [address] Mar, Edema of left foot R60.0 [facility] [address] [place] [address] Mar, Irritable bowel syndrome with diarrhea K 58.0 [facility] [address] [place] [address] Mar, [facility] [address] [place] [address] Mar, [facility] [address] [place] [address] Mar, [facility] [address] [place] [address] Feb, Irritable bowel syndrome with diarrhea K 58.0 [facility] [address] [place] [address] Feb, [facility] [address] [place] [address] Feb, Irritable bowel syndrome with diarrhea K 58.0 [facility] [address] [place] [address] Feb, control counseling Z30.09 ; Lumbag o with sciatica, left side M54.42 and Chronic GERD K21.9 [facility] [address] [place] [address] Feb, [facility] [address] [place] [address] Feb, [address] [address] Feb, [address] [address] Feb, Diarrhea, unspecified type R19.[address] [address] Feb, Abnormal glucose R73.[address] [address] Feb, Abnormal glucose R73.[address] [address] Feb, Reactive airway disease, mild persistent , uncomplicated J45.[address] [address] Feb, Lumbago with sciatica, left side M54.42 ; Cigarette nicotine dependence, uncomplicated F17.210 ; Diarrhea, unspecified type R19.7 and Abnormal glucose R73.[address] [address] January, [address] [address] January, [address] [address] January, [address] [address] January, [address] [address] January, Muscle strain of chest wall, initial enc ounter S29.011A ; Physical exam Z00.00 ; Need for hepatitis vaccination Z23 and Abscess L02.[address] [address] Dec, Left hand pain M79.642 ; Thoracic spine pain M54.6 ; Cervical pain M54.2 and Elevated blood pressure reading R03.[address] [address] Dec, Lumbago with sciatica, left side M54.42 and Decreased hearing of left ear H91.[address] [address] Dec, Other chest pain R07.89 ; Finger pain, l eft M79.645 ; Chronic GERD K21.9 and Muscle strain of chest wall, initial encounter S29.011A [address] [address] Dec, [address] [address] Dec, Other constipation K59.09 ; Irregular pe riods N92.6 and Absent periods N91.[address] [address] Oct, [address] [address] Oct, Weight gain R63.[address] [address] Oct, Generalized anxiety disorder F41.[address] [address] Sep, [address] [address] Sep, Absent periods N91.2 and Decreased heari ng of left ear H91.[address] [address] Sep, [address] [address] Sep, Pre-op exam Z01.818 and Abscess of chest wall L02.[address] [address] Sep, [address] [address] Sep, Prediabetes R73.09 ; Vitamin D deficienc y E55.9 ; Mixed hyperlipidemia E78.2 and Arthritis of ankle, left M19.[address] [address] Sep, Smoking trying to quit Z72.0 ; Chronic G ERD K21.9 ; Generalized anxiety disorder F41.1 ; Other chest pain R07.89 ; Other constipation K59.09 and Right upper quadrant pain R10.[address] [address] Aug, [address] [address] Aug, Other chronic pain G89.[address] [address] Aug, Mixed hyperlipidemia E78.2 ; Fibromyalgi a M79.7 ; Lumbago of lumbar region with sciatica M54.40 ; History of gestational diabetes Z86.32 ; Prediabetes R73.09 ; Vitamin D deficiency E55.9 ; Weight gain R63.5 ; control counseling Z30.09 ; Pain, dental K08.89 and Flank pain R10.[address] [address] Aug, [address] [address] Jun, Acute left ankle pain M25.[address] [address] Jun, [address] [address] Jun, [address] [address] Jun, Acute left ankle pain M25.[address] [address] Jun, [address] [address] Jun, Acute left ankle pain M25.[address] [address] Jun, Influenza vaccine needed Z23 and Irregul ar periods N92.6 [facility] [address] [place] [address] May, Mixed hyperlipidemia E78.2 [facility] [address] [place] [address] May, [facility] [address] [place] [address] May, Chronic GERD K21.9 [facility] [address] [place] [address] Apr, Weight gain R63.5 [facility] [address] [place] [address] Apr, Chronic GERD K21.9 and Weight gain R63.5 [facility] [address] [place] [address] Mar, Depression with anxiety F41.8 and Chroni c idiopathic constipation K59.09 [facility] [address] [place] [address] Mar, Other chronic pain G89.29 [facility] [address] [place] [address] Mar, Post herpetic neuralgia B02.[address] [address] Mar, Post herpetic neuralgia B02.29 [facility] [address] [place] [address] Mar, [facility] [address] [place] [address] Mar, Other elevated white blood cell (WBC) co unt D72.[address] [address] Mar, Other elevated white blood cell (WBC) co unt D72.828 and Dyslipidemia E78.5 [facility] [address] [place] [address] Feb, [facility] [address] [place] [address] Feb, Vitamin D deficiency E55.9 ; Dyslipidemi a E78.5 ; Other elevated white blood cell (WBC) count D72.828 and Skin tag L91.[address] [address] Feb, [address] [address] Feb, Vitamin D deficiency E55.9 and Dyslipide sourav E78.[address] [address] Feb, [address] [address] Feb, Post herpetic neuralgia B02.29 ; Thyroid disorder screen Z13.29 ; Mixed hyperlipidemia E78.2 ; Chronic GERD K21.9 ; Lumbago of lumbar region with sciatica M54.40 ; Prediabetes R73.03 ; Other fatigue R53.83 ; Vitamin D deficiency E55.9 and Vitamin B 12 deficiency E53.[address] [address] Feb, Reactive airway disease, mild persistent , uncomplicated J45.[address] [address] Feb, Chronic GERD K21.[address] [address] Feb, Mixed hyperlipidemia E78.2 and Other chr onic pain G89.[address] [address] Feb, Lumbago with sciatica, left side M54.42 ; Mixed hyperlipidemia E78.2 and Reactive airway disease, mild persistent, uncomplicated J45.[address] [address] Feb, Chronic GERD K21.[address] [address] Feb, [address] [address] Feb, [facility] [address] [place] [address] Feb, Post herpetic neuralgia B02.29 [facility] [address] [place] [address] 16 Feb, 2017 Allergic contact dermatitis due to other agents L23.89 and Post herpetic neuralgia B02.29 [facility] [address] [place] [address] Feb, Chronic GERD K21.9 [facility] [address] [place] [address] Feb, Chronic GERD K21.9 [facility] [address] [place] [address] January, Post herpetic neuralgia B02.[address] [address] January, Lumbago with sciatica, left side M54.42 [facility] [address] [place] [address] January, [facility] [address] [place] [address] January, Lumbago of lumbar region with sciatica M 54.[address] [address] January, Other chronic pain G89.29 and Lumbago wi th sciatica, left side M54.42 [facility] [address] [place] [address] January, Depression with anxiety F41.[address] [address] January, Mixed hyperlipidemia E78.[address] [address] January, Abscess of left groin L02.[address] [address] Dec, Depression with anxiety F41.[address] [place] [address] 04 Dec, 2016 Irregular periods N92.[address] [address] Nov, Left wrist pain M25.532 and Acute left a nkle pain M25.[address] [address] Nov, Post herpetic neuralgia B02.29 and Absce ss of left groin L02.[address] [address] Sep, Irregular periods N92.[address] [address] Sep, Mixed hyperlipidemia E78.2 ; Flank pain R10.9 and Post herpetic neuralgia B02.[address] [address] Aug, Lumbago of lumbar region with sciatica M 54.40 ; Chronic idiopathic constipation K59.09 ; Depression with anxiety F41.8 and Mixed hyperlipidemia E78.[address] [address] Aug, Other chronic pain G89.[address] [address] Aug, Reactive airway disease, mild persistent , uncomplicated J45.[address] [address] Aug, [address] [address] Aug, Cough R05 and Allergic contact dermatiti s due to other agents L23.[address] [address] 05 Aug, [address] [address] Jul, Other chronic pain G89.[address] [address] Jul, Upper respiratory tract infection, unspe cified type J06.9 ; Chronic GERD K21.9 ; Acute left ankle pain M25.572 and Lumbago of lumbar region with sciatica M54.[address] [address] Jun, Other chronic pain G89.[address] [address] Jun, [address] [address] Jun, [address] [address] Jun, Chronic GERD K21.[address] [address] Jun, [address] [address] May, Pain in right wrist M25.531 ; Left wrist pain M25.532 ; Acute left ankle pain M25.572 ; Thoracic spine pain M54.6 ; Lumbago with sciatica, left side M54.42 ; Other chronic pain G89.29 and Dysuria R30.[address] [address] May, Chronic GERD K21.[address] [address] May, Chronic GERD K21.[address] [address] May, [address] [address] May, [address] [address] May, [address] [address] May, [address] [address] May, Mixed hyperlipidemia E78.2 ; Fibromyalgi a M79.7 ; Depression with anxiety F41.8 ; Lumbago of lumbar region with sciatica M54.40 ; Encounter to establish care Z76.89 ; Chronic GERD K21.9 ; History of gestational diabetes Z86.32 ; Chronic idiopathic constipation K59.09 ; Thyroid disorder screen Z13.29 and Need for influenza vaccination Z23 [facility] [address] [place], [place] [address] Apr, Gestational diabetes O24.419 [facility] [address] [place] [address] Feb, Gestational diabetes O24.419 IMMUNIZATIONS No Known Immunizations SOCIAL HISTORY Never Assessed REASON FOR VISIT PLAN OF CARE VITAL SIGNS MEDICATIONS Medication Instructions Dosage Frequency Start Date End Date Duration S tatus Tramadol HCl 50 MG TAKE 1 TABLET BY MOUTH THREE TIMES DAILY 30 Active RESULTS No Results PROCEDURES No [...] Fused L ankle 09/2017 Hospitalization History [facility]- Hyperglycemia and February 2016 Hospitalization History Ankle surgery 09/2017
--- OUTSIDE RECORDS SUMMARY | 2020-03-15 21:29 | XMS REPORT ---
Author Author Solange Sultana [facility] Address [address] [place], [place] [id number] Care Team Providers Care Storage Consultant Name Role Phone Felisha Sultana Unavailable PROBLEMS Type Condition ICD9-CM Code YOU04-AQ Code Onset Dates Condition S tatus SNOMED Code Problem Gestational diabetes O24.419 Active 57521341 Problem Lumbago of lumbar region with sciatica M54.40 Active 83988200 Problem Chronic idiopathic constipation K59.09 Active 05974375 Problem Thyroid disorder screen Z13.29 Active 862741445 Problem History of gestational diabetes Z86.32 Active 558693996 Problem Chronic GERD K21.9 Active 3368406 09 Problem Prediabetes R73.09 Active 40312380 2 Problem Fibromyalgia M79.7 Active 5386241 05 Problem Vitamin D deficiency E55.9 Active 74882863 Problem Mixed hyperlipidemia E78.2 Active 983238294 Problem Prediabetes R73.03 Active 72350769 2 Problem Depression with anxiety F41.8 Active 986035558 Problem Other elevated white blood cell (WBC) count D72.82 8 Active 049008628 Problem Absent periods N91.2 Active 12999 001 Problem Generalized anxiety disorder F41.1 A ctive 09987881 Problem Irritable bowel syndrome with diarrhea K58.0 Active 009150116 Problem Cigarette nicotine dependence, uncomplicated F17.2 10 Active 41321547 Problem Pain in right wrist M25.531 Active 67467140 Problem Lumbago with sciatica, left side M54.42 Active 506808868 Problem Other chronic pain G89.29 Active 8 8654798 Problem Left hand pain M79.642 Active 74450 0854316590 Problem Decreased hearing of left ear H91.92 Active 32913163 Problem Cervical pain M54.2 Active 616088 05 Problem Elevated blood pressure reading R03.0 Active 63055846 Problem Thoracic spine pain M54.6 Active 128554810 Problem Plantar fasciitis M72.2 Active 20 8909471 Problem Left wrist pain M25.532 Active 5660 8008 Problem Acute left ankle pain M25.572 Active 06664039658552 Problem Irregular periods N92.6 Active 80 743404 Problem Other fatigue R53.83 Active 161245 01 Problem Reactive airway disease, mild persistent, uncomplicated J45.30 Active 432017017693 Problem Post herpetic neuralgia B02.29 Active 6316750 ALLERGIES No Information ENCOUNTERS Encounter Location Date Diagnosis [facility] [address] [place] [address] Mar, [facility] [address] [place] [address] Mar, Irritable bowel syndrome with diarrhea K 58.0 [facility] [address] [place] [address] Mar, [facility] [address] [place] [address] Mar, [facility] [address] [place] [address] Mar, [facility] [address] [place] [address] Feb, Irritable bowel syndrome with diarrhea K 58.[address] [address] Feb, [facility] [address] [place] [address] Feb, Irritable bowel syndrome with diarrhea K 58.0 [facility] [address] [place] [address] Feb, control counseling Z30.09 ; Lumbag o with sciatica, left side M54.42 and Chronic GERD K21.[address] [address] Feb, [facility] [address] [place] [address] Feb, [facility] [address] [place] [address] Feb, [facility] [address] [place] [address] 08 Feb, 2018 Diarrhea, unspecified type R19.[address] [address] Feb, Abnormal glucose R73.[address] [address] Feb, Abnormal glucose R73.[address] [address] Feb, Reactive airway disease, mild persistent , uncomplicated J45.[address] [address] Feb, Lumbago with sciatica, left side M54.42 ; Cigarette nicotine dependence, uncomplicated F17.210 ; Diarrhea, unspecified type R19.7 and Abnormal glucose R73.[address] [address] January, [address] [address] January, [address] [address] January, [address] [address] January, [address] [address] January, Muscle strain of chest wall, initial enc ounter S29.011A ; Physical exam Z00.00 ; Need for hepatitis vaccination Z23 and Abscess L02.[address] [address] Dec, Left hand pain M79.642 ; Thoracic spine pain M54.6 ; Cervical pain M54.2 and Elevated blood pressure reading R03.[address] [address] Dec, Lumbago with sciatica, left side M54.42 and Decreased hearing of left ear H91.[address] [address] Dec, Other chest pain R07.89 ; Finger pain, l eft M79.645 ; Chronic GERD K21.9 and Muscle strain of chest wall, initial encounter S29.011A [address] [address] Dec, [address] [address] Dec, Other constipation K59.09 ; Irregular pe riods N92.6 and Absent periods N91.[address] [address] Oct, [address] [address] Oct, Weight gain R63.[address] [address] Oct, Generalized anxiety disorder F41.[address] [address] Sep, [address] [address] Sep, Absent periods N91.2 and Decreased heari ng of left ear H91.[address] [address] Sep, [address] [address] Sep, Pre-op exam Z01.818 and Abscess of chest wall L02.[address] [address] Sep, [address] [address] Sep, Prediabetes R73.09 ; Vitamin D deficienc y E55.9 ; Mixed hyperlipidemia E78.2 and Arthritis of ankle, left M19.[address] [address] Sep, Smoking trying to quit Z72.0 ; Chronic G ERD K21.9 ; Generalized anxiety disorder F41.1 ; Other chest pain R07.89 ; Other constipation K59.09 and Right upper quadrant pain R10.11 [facility] [address] [place] [address] Aug, [facility] [address] [place] [address] Aug, Other chronic pain G89.29 [facility] [address] [place] [address] Aug, Mixed hyperlipidemia E78.2 ; Fibromyalgi a M79.7 ; Lumbago of lumbar region with sciatica M54.40 ; History of gestational diabetes Z86.32 ; Prediabetes R73.09 ; Vitamin D deficiency E55.9 ; Weight gain R63.5 ; control counseling Z30.09 ; Pain, dental K08.89 and Flank pain R10.9 [facility] [address] [place] [address] Aug, [facility] [address] [place] [address] Jun, Acute left ankle pain M25.572 [facility] [address] [place] [address] Jun, [facility] [address] [place] [address] Jun, [facility] [address] [place] [address] Jun, Acute left ankle pain M25.572 [facility] [address] [place] [address] Jun, [facility] [address] [place] [address] Jun, Acute left ankle pain M25.572 [facility] [address] [place] [address] Jun, Influenza vaccine needed Z23 and Irregul ar periods N92.6 [facility] [address] [place] [address] May, Mixed hyperlipidemia E78.2 [facility] [address] [place] [address] May, [facility] [address] [place] [address] May, Chronic GERD K21.[address] [address] Apr, Weight gain R63.[address] [address] Apr, Chronic GERD K21.9 and Weight gain R63.[address] [address] Mar, Depression with anxiety F41.8 and Chroni c idiopathic constipation K59.[address] [address] Mar, Other chronic pain G89.[address] [address] Mar, Post herpetic neuralgia B02.[address] [address] Mar, Post herpetic neuralgia B02.[address] [address] Mar, [address] [address] Mar, Other elevated white blood cell (WBC) co unt D72.[address] [address] Mar, Other elevated white blood cell (WBC) co unt D72.828 and Dyslipidemia E78.[address] [address] Feb, [address] [address] Feb, Vitamin D deficiency E55.9 ; Dyslipidemi a E78.5 ; Other elevated white blood cell (WBC) count D72.828 and Skin tag L91.[address] [address] Feb, [facility] [address] [place] [address] Feb, Vitamin D deficiency E55.9 and Dyslipide sourav E78.5 [facility] [address] [place] [address] Feb, [facility] [address] [place] [address] Feb, Post herpetic neuralgia B02.29 ; Thyroid disorder screen Z13.29 ; Mixed hyperlipidemia E78.2 ; Chronic GERD K21.9 ; Lumbago of lumbar region with sciatica M54.40 ; Prediabetes R73.03 ; Other fatigue R53.83 ; Vitamin D deficiency E55.9 and Vitamin B 12 deficiency E53.8 [facility] [address] [place] [address] Feb, Reactive airway disease, mild persistent , uncomplicated J45.30 [facility] [address] [place] [address] Feb, Chronic GERD K21.[address] [address] Feb, Mixed hyperlipidemia E78.2 and Other chr onic pain G89.[address] [address] Feb, Lumbago with sciatica, left side M54.42 ; Mixed hyperlipidemia E78.2 and Reactive airway disease, mild persistent, uncomplicated J45.30 [facility] [address] [place] [address] Feb, Chronic GERD K21.[address] [address] Feb, [address] [address] Feb, [address] [address] 16 Feb, 2017 Post herpetic neuralgia B02.[address] [address] Feb, Allergic contact dermatitis due to other agents L23.89 and Post herpetic neuralgia B02.29 [facility] [address] [place] [address] Feb, Chronic GERD K21.9 [facility] [address] [place] [address] Feb, Chronic GERD K21.9 [facility] [address] [place] [address] January, Post herpetic neuralgia B02.29 [facility] [address] [place] [address] January, Lumbago with sciatica, left side M54.[address] [address] January, [address] [address] January, Lumbago of lumbar region with sciatica M 54.40 [facility] [address] [place] [address] January, Other chronic pain G89.29 and Lumbago wi th sciatica, left side M54.[address] [address] January, Depression with anxiety F41.[address] [address] January, Mixed hyperlipidemia E78.2 [facility] [address] [place] [address] January, Abscess of left groin L02.214 [facility] [address] [place] [address] Dec, Depression with anxiety F41.[address] [address] Dec, Irregular periods N92.6 [facility] [address] [place] [address] Nov, Left wrist pain M25.532 and Acute left a nkle pain M25.572 [facility] [address] [place] [address] Nov, Post herpetic neuralgia B02.29 and Absce ss of left groin L02.[address] [address] Sep, Irregular periods N92.[address] [address] Sep, Mixed hyperlipidemia E78.2 ; Flank pain R10.9 and Post herpetic neuralgia B02.[address] [address] Aug, Lumbago of lumbar region with sciatica M 54.40 ; Chronic idiopathic constipation K59.09 ; Depression with anxiety F41.8 and Mixed hyperlipidemia E78.[address] [address] Aug, Other chronic pain G89.[address] [address] Aug, Reactive airway disease, mild persistent , uncomplicated J45.[address] [address] Aug, [address] [address] Aug, Cough R05 and Allergic contact dermatiti s due to other agents L23.[address] [address] Aug, [address] [address] Jul, Other chronic pain G89.[address] [address] Jul, Upper respiratory tract infection, unspe cified type J06.9 ; Chronic GERD K21.9 ; Acute left ankle pain M25.572 and Lumbago of lumbar region with sciatica M54.[address] [address] Jun, Other chronic pain G89.[address] [address] Jun, [address] [address] Jun, [address] [address] Jun, Chronic GERD K21.[address] [address] Jun, [address] [address] 30 May, 2016 Pain in right wrist M25.531 ; Left wrist pain M25.532 ; Acute left ankle pain M25.572 ; Thoracic spine pain M54.6 ; Lumbago with sciatica, left side M54.42 ; Other chronic pain G89.29 and Dysuria R30.[address] [address] May, Chronic GERD K21.[address] [address] May, Chronic GERD K21.[address] [address] May, [address] [address] May, [address] [address] 16 May, [address] [address] 16 May, [address] [address] 16 May, 2016 Mixed hyperlipidemia E78.2 ; Fibromyalgi a M79.7 ; Depression with anxiety F41.8 ; Lumbago of lumbar region with sciatica M54.40 ; Encounter to establish care Z76.89 ; Chronic GERD K21.9 ; History of gestational diabetes Z86.32 ; Chronic idiopathic constipation K59.09 ; Thyroid disorder screen Z13.29 and Need for influenza vaccination Z23 [facility] [address] [place] [address] Apr, Gestational diabetes O24.419 [facility] [address] [place], [place] [address] Feb, Gestational diabetes O24.419 IMMUNIZATIONS No Known Immunizations SOCIAL HISTORY Never Assessed REASON FOR VISIT Xifaxan PLAN OF CARE VITAL SIGNS MEDICATIONS Medication Instructions Dosage Frequency Start Date End Date Duration S tatus MedroxyPROGESTERone Acetate 10 MG Orally Once a day 1 tablet with f ood 24h Sep, Active Pennsaid 2 % Transdermal Twice a day 2 applications to affected area 12h 30 Active Fiber Not-Taking Gabapentin 600 MG Orally five times daily 1 tablet Active Cyclobenzaprine HCl 10 MG TAKE 1 TABLET BY MOUTH THREE (3) T IMES DAILY 30 Active Zoloft 100 MG Orally Once a day 1 tablet 24h Active MorphaBond ER 15 MG Orally every 12 hrs 1 tablet 12h Aug, 30 days Not-Taking Gralise 600 MG Orally Once a day 1 tablet in the am, 1 tablet with lunch, 3 tablets with evening meal 24h Feb, Ac tive Viberzi 100 MG Orally Two times daily as directed Mar, 30 days Active Nortriptyline HCl 25 MG Orally QHS 1 capsule 30 Active Ventolin HFA 108 (90 Base) MCG/ACT Inhalation every 4 hrs 2 puffs a s needed 4h Aug, 30 days Active Xifaxan 550 MG Orally Three times a day 1 tablet 8h Feb, 14 days Active Benefiber - Orally Two times daily 2 May, 30 days Not-Taking Victoza 18 MG/3ML Subcutaneous inject 1.8 Once daily as directed Feb, Active Wellbutrin SR 150 MG Orally Twice a day 1 tablet 12h Feb, 30 day(s) Active Sertraline HCl 100 MG Orally Once a day 2 tablet 24h Active Tramadol HCl 50 MG TAKE 1 TABLET BY MOUTH THREE TIMES DAILY 30 Active Pravastatin Sodium 20 MG TAKE 1 TABLET BY MOUTH EVERY NIGHT AT BEDTIME 90 Active Multivitamin Adult - Act nancy Sprintec 28 0.25-35 MG-MCG Orally Once a day 1 tablet 24h 2016 28 day(s) Active Mobic 15 MG Orally Once a day 1 tablet 24h Jul, 90 d ays Active Colace 100 MG Orally Once a day 1 capsule as needed 24h 30 Active Flonase 50 MCG/ACT Nasally Once a day 1 spray in each nostril 24h Active Pantoprazole Sodium 40 MG Orally BID 1 tablet 12h Jul, 30 days Active RESULTS No Results PROCEDURES [...] Fused L ankle 09/2017 Hospitalization History [facility]- Hyperglycemia and February 2016 Hospitalization History Ankle surgery 09/2017
--- OUTSIDE RECORDS SUMMARY | 2020-03-15 21:29 | XMS REPORT ---
Author Author Solange Sultana [facility] Address [address], [place] [id number] Care Team Providers Care Orange Grower Name Role Phone Felisha Sultana Unavailable PROBLEMS Type Condition ICD9-CM Code XQR02-AQ Code Onset Dates Condition S tatus SNOMED Code Problem Gestational diabetes O24.419 Active 41031503 Problem Lumbago of lumbar region with sciatica M54.40 Active 81761498 Problem Chronic idiopathic constipation K59.09 Active 80712376 Problem Thyroid disorder screen Z13.29 Active 991548251 Problem History of gestational diabetes Z86.32 Active 470186682 Problem Chronic GERD K21.9 Active 7807404 09 Problem Prediabetes R73.09 Active 31294928 2 Problem Fibromyalgia M79.7 Active 3572576 05 Problem Vitamin D deficiency E55.9 Active 78900757 Problem Mixed hyperlipidemia E78.2 Active 344187814 Problem Prediabetes R73.03 Active 38363053 2 Problem Depression with anxiety F41.8 Active 184857862 Problem Other elevated white blood cell (WBC) count D72.82 8 Active 353781487 Problem Absent periods N91.2 Active 09198 001 Problem Generalized anxiety disorder F41.1 A ctive 79535099 Problem Irritable bowel syndrome with diarrhea K58.0 Active 564438770 Problem Cigarette nicotine dependence, uncomplicated F17.2 10 Active 55004818 Problem Pain in right wrist M25.531 Active 64085771 Problem Lumbago with sciatica, left side M54.42 Active 125705011 Problem Other chronic pain G89.29 Active 8 3224870 Problem Left hand pain M79.642 Active 69234 0263866390 Problem Decreased hearing of left ear H91.92 Active 88737865 Problem Cervical pain M54.2 Active 483018 05 Problem Elevated blood pressure reading R03.0 Active 08449480 Problem Thoracic spine pain M54.6 Active 176344914 Problem Plantar fasciitis M72.2 Active 20 4843198 Problem Left wrist pain M25.532 Active 5660 8008 Problem Acute left ankle pain M25.572 Active 90387806026236 Problem Irregular periods N92.6 Active 80 667566 Problem Other fatigue R53.83 Active 453397 01 Problem Reactive airway disease, mild persistent, uncomplicated J45.30 Active 058167431520 Problem Post herpetic neuralgia B02.29 Active 6094334 ALLERGIES No Information ENCOUNTERS Encounter Location Date Diagnosis [facility] [address] [place] [phone] Mar, [facility] [address] [place] [address] Feb, Irritable bowel syndrome with diarrhea K 58.[address] [address] Feb, [address] [address] Feb, Irritable bowel syndrome with diarrhea K 58.[address] [address] Feb, control counseling Z30.09 ; Lumbag o with sciatica, left side M54.42 and Chronic GERD K21.[address] [address] Feb, [address] [address] Feb, [address] [address] Feb, [address] [address] 08 Feb, 2018 Diarrhea, unspecified type R19.[address] [address] Feb, Abnormal glucose R73.[address] [address] Feb, Abnormal glucose R73.[address] [address] 05 Feb, 2018 Reactive airway disease, mild persistent , uncomplicated J45.[address] [address] Feb, Lumbago with sciatica, left side M54.42 ; Cigarette nicotine dependence, uncomplicated F17.210 ; Diarrhea, unspecified type R19.7 and Abnormal glucose R73.[address] [address] January, [address] [address] January, [address] [address] January, [address] [address] January, [address] [address] January, Muscle strain of chest wall, initial enc ounter S29.011A ; Physical exam Z00.00 ; Need for hepatitis vaccination Z23 and Abscess L02.[address] [address] Dec, Left hand pain M79.642 ; Thoracic spine pain M54.6 ; Cervical pain M54.2 and Elevated blood pressure reading R03.[address] [address] Dec, Lumbago with sciatica, left side M54.42 and Decreased hearing of left ear H91.[address] [address] Dec, Other chest pain R07.89 ; Finger pain, l eft M79.645 ; Chronic GERD K21.9 and Muscle strain of chest wall, initial encounter S29.011A [address] [address] Dec, [address] [address] Dec, Other constipation K59.09 ; Irregular pe riods N92.6 and Absent periods N91.2 [facility] [address] [place] [address] Oct, [address] [address] Oct, Weight gain R63.[address] [address] Oct, Generalized anxiety disorder F41.[address] [address] Sep, [address] [address] Sep, Absent periods N91.2 and Decreased heari ng of left ear H91.[address] [address] Sep, [address] [address] Sep, Pre-op exam Z01.818 and Abscess of chest wall L02.[address] [address] Sep, [address] [address] Sep, Prediabetes R73.09 ; Vitamin D deficienc y E55.9 ; Mixed hyperlipidemia E78.2 and Arthritis of ankle, left M19.[address] [address] Sep, Smoking trying to quit Z72.0 ; Chronic G ERD K21.9 ; Generalized anxiety disorder F41.1 ; Other chest pain R07.89 ; Other constipation K59.09 and Right upper quadrant pain R10.[address] [address] Aug, [address] [address] Aug, Other chronic pain G89.[address] [address] Aug, Mixed hyperlipidemia E78.2 ; Fibromyalgi a M79.7 ; Lumbago of lumbar region with sciatica M54.40 ; History of gestational diabetes Z86.32 ; Prediabetes R73.09 ; Vitamin D deficiency E55.9 ; Weight gain R63.5 ; control counseling Z30.09 ; Pain, dental K08.89 and Flank pain R10.9 [facility] [address] [place] [address] Aug, [facility] [address] [place] [address] Jun, Acute left ankle pain M25.572 [facility] [address] [place] [address] Jun, [facility] [address] [place] [address] Jun, [facility] [address] [place] [address] Jun, Acute left ankle pain M25.572 [facility] [address] [place] [address] Jun, [facility] [address] [place] [address] Jun, Acute left ankle pain M25.572 [facility] [address] [place] [address] Jun, Influenza vaccine needed Z23 and Irregul ar periods N92.6 [facility] [address] [place] [address] May, Mixed hyperlipidemia E78.2 [facility] [address] [place] [address] May, [facility] [address] [place] [address] May, Chronic GERD K21.9 [facility] [address] [place] [address] Apr, Weight gain R63.5 [facility] [address] [place] [address] Apr, Chronic GERD K21.9 and Weight gain R63.[address] [address] Mar, Depression with anxiety F41.8 and Chroni c idiopathic constipation K59.[address] [address] Mar, Other chronic pain G89.[address] [address] Mar, Post herpetic neuralgia B02.[address] [address] Mar, Post herpetic neuralgia B02.[address] [address] Mar, [address] [address] Mar, Other elevated white blood cell (WBC) co unt D72.[address] [address] Mar, Other elevated white blood cell (WBC) co unt D72.828 and Dyslipidemia E78.[address] [address] Feb, [address] [address] Feb, Vitamin D deficiency E55.9 ; Dyslipidemi a E78.5 ; Other elevated white blood cell (WBC) count D72.828 and Skin tag L91.[address] [address] Feb, [address] [address] Feb, Vitamin D deficiency E55.9 and Dyslipide sourav E78.[address] [address] Feb, [address] [address] Feb, Post herpetic neuralgia B02.29 ; Thyroid disorder screen Z13.29 ; Mixed hyperlipidemia E78.2 ; Chronic GERD K21.9 ; Lumbago of lumbar region with sciatica M54.40 ; Prediabetes R73.03 ; Other fatigue R53.83 ; Vitamin D deficiency E55.9 and Vitamin B 12 deficiency E53.8 [facility] [address] [place] [address] Feb, Reactive airway disease, mild persistent , uncomplicated J45.30 [facility] [address] [place] [address] Feb, Chronic GERD K21.[address] [address] Feb, Mixed hyperlipidemia E78.2 and Other chr onic pain G89.[address] [address] Feb, Lumbago with sciatica, left side M54.42 ; Mixed hyperlipidemia E78.2 and Reactive airway disease, mild persistent, uncomplicated J45.[address] [address] Feb, Chronic GERD K21.[address] [address] Feb, [address] [address] Feb, [address] [address] Feb, Post herpetic neuralgia B02.[address] [address] Feb, Allergic contact dermatitis due to other agents L23.89 and Post herpetic neuralgia B02.[address] [address] Feb, Chronic GERD K21.[address] [address] 13 Feb, 2017 Chronic GERD K21.[address] [address] January, Post herpetic neuralgia B02.29 [facility] [address] [place] [address] January, Lumbago with sciatica, left side M54.42 [facility] [address] [place] [address] January, [facility] [address] [place] [address] January, Lumbago of lumbar region with sciatica M 54.40 [facility] [address] [place] [address] January, Other chronic pain G89.29 and Lumbago wi th sciatica, left side M54.42 [facility] [address] [place] [address] January, Depression with anxiety F41.8 [facility] [address] [place] [address] January, Mixed hyperlipidemia E78.2 [facility] [address] [place] [address] January, Abscess of left groin L02.[address] [address] Dec, Depression with anxiety F41.8 [facility] [address] [place] [address] Dec, Irregular periods N92.6 [facility] [address] [place] [address] Nov, Left wrist pain M25.532 and Acute left a nkle pain M25.572 [facility] [address] [place] [address] Nov, Post herpetic neuralgia B02.29 and Absce ss of left groin L02.214 [facility] [address] [place] [address] Sep, Irregular periods N92.6 [facility] [address] [place] [address] Sep, Mixed hyperlipidemia E78.2 ; Flank pain R10.9 and Post herpetic neuralgia B02.[address] [address] Aug, Lumbago of lumbar region with sciatica M 54.40 ; Chronic idiopathic constipation K59.09 ; Depression with anxiety F41.8 and Mixed hyperlipidemia E78.[address] [address] Aug, Other chronic pain G89.[address] [address] Aug, Reactive airway disease, mild persistent , uncomplicated J45.[address] [address] Aug, [address] [address] Aug, Cough R05 and Allergic contact dermatiti s due to other agents L23.[address] [address] Aug, [address] [address] Jul, Other chronic pain G89.[address] [address] Jul, Upper respiratory tract infection, unspe cified type J06.9 ; Chronic GERD K21.9 ; Acute left ankle pain M25.572 and Lumbago of lumbar region with sciatica M54.[address] [address] Jun, Other chronic pain G89.[address] [address] Jun, [address] [address] Jun, [address] [address] Jun, Chronic GERD K21.[address] [address] Jun, [facility] [address] [place] [address] 30 May, 2016 Pain in right wrist M25.531 ; Left wrist pain M25.532 ; Acute left ankle pain M25.572 ; Thoracic spine pain M54.6 ; Lumbago with sciatica, left side M54.42 ; Other chronic pain G89.29 and Dysuria R30.0 [facility] [address] [place] [address] May, Chronic GERD K21.[address] [address] May, Chronic GERD K21.[address] [address] May, [address] [address] May, [address] [address] 16 May, [address] [address] 16 May, [address] [address] May, Mixed hyperlipidemia E78.2 ; Fibromyalgi a M79.7 ; Depression with anxiety F41.8 ; Lumbago of lumbar region with sciatica M54.40 ; Encounter to establish care Z76.89 ; Chronic GERD K21.9 ; History of gestational diabetes Z86.32 ; Chronic idiopathic constipation K59.09 ; Thyroid disorder screen Z13.29 and Need for influenza vaccination Z23 [facility] [address] [place] [address] Apr, Gestational diabetes O24.419 [facility] [address] [place] [address] Feb, Gestational diabetes O24.419 IMMUNIZATIONS No Known [...]
--- OUTSIDE RECORDS SUMMARY | 2020-03-15 21:29 | XMS REPORT ---
Author Author Solange Sultana [facility] Address [address] [place], [place] [id number] Care Team Providers Care Label Rewinder Name Role Phone Felisha Sultana Unavailable PROBLEMS Type Condition ICD9-CM Code QUH78-NI Code Onset Dates Condition S tatus SNOMED Code Problem Gestational diabetes O24.419 Active 05286286 Problem Lumbago of lumbar region with sciatica M54.40 Active 50145586 Problem Chronic idiopathic constipation K59.09 Active 09466458 Problem Thyroid disorder screen Z13.29 Active 136203168 Problem History of gestational diabetes Z86.32 Active 035162520 Problem Chronic GERD K21.9 Active 8463442 09 Problem Prediabetes R73.09 Active 15192395 2 Problem Fibromyalgia M79.7 Active 7065061 05 Problem Vitamin D deficiency E55.9 Active 92208411 Problem Mixed hyperlipidemia E78.2 Active 385457986 Problem Prediabetes R73.03 Active 52429039 2 Problem Depression with anxiety F41.8 Active 392073807 Problem Other elevated white blood cell (WBC) count D72.82 8 Active 063208287 Problem Absent periods N91.2 Active 03057 001 Problem Generalized anxiety disorder F41.1 A ctive 75694965 Problem Irritable bowel syndrome with diarrhea K58.0 Active 135087662 Problem Cigarette nicotine dependence, uncomplicated F17.2 10 Active 67221983 Problem Pain in right wrist M25.531 Active 68369230 Problem Lumbago with sciatica, left side M54.42 Active 975681302 Problem Other chronic pain G89.29 Active 8 9717835 Problem Left hand pain M79.642 Active 01933 7202128082 Problem Decreased hearing of left ear H91.92 Active 61607508 Problem Cervical pain M54.2 Active 216029 05 Problem Elevated blood pressure reading R03.0 Active 81306748 Problem Thoracic spine pain M54.6 Active 467536384 Problem Plantar fasciitis M72.2 Active 20 3719533 Problem Left wrist pain M25.532 Active 5660 8008 Problem Acute left ankle pain M25.572 Active 27601066615686 Problem Irregular periods N92.6 Active 80 373894 Problem Other fatigue R53.83 Active 084070 01 Problem Reactive airway disease, mild persistent, uncomplicated J45.30 Active 108238740114 Problem Post herpetic neuralgia B02.29 Active 1463641 ALLERGIES No Information ENCOUNTERS Encounter Location Date Diagnosis [facility] [address] [place] [address] Mar, [facility] [address] [place] [address] Mar, [facility] [address] [place] [address] Mar, [facility] [address] [place] [address] Feb, Irritable bowel syndrome with diarrhea K 58.0 [facility] [address] [place] [address] Feb, [facility] [address] [place] [address] Feb, Irritable bowel syndrome with diarrhea K 58.[address] [address] Feb, control counseling Z30.09 ; Lumbag o with sciatica, left side M54.42 and Chronic GERD K21.[address] [address] Feb, [facility] [address] [place] [address] Feb, [facility] [address] [place] [address] Feb, [facility] [address] [place] [address] Feb, Diarrhea, unspecified type R19.[address] [address] 06 Feb, 2018 Abnormal glucose R73.[address] [facility] [address] Feb, Abnormal glucose R73.[address] [address] 05 Feb, 2018 Reactive airway disease, mild persistent , uncomplicated J45.[address] [address] Feb, Lumbago with sciatica, left side M54.42 ; Cigarette nicotine dependence, uncomplicated F17.210 ; Diarrhea, unspecified type R19.7 and Abnormal glucose R73.[address] [address] January, [address] [address] January, [address] [address] January, [address] [address] January, [address] [address] January, Muscle strain of chest wall, initial enc ounter S29.011A ; Physical exam Z00.00 ; Need for hepatitis vaccination Z23 and Abscess L02.[address] [address] Dec, Left hand pain M79.642 ; Thoracic spine pain M54.6 ; Cervical pain M54.2 and Elevated blood pressure reading R03.[address] [address] Dec, Lumbago with sciatica, left side M54.42 and Decreased hearing of left ear H91.[address] [address] Dec, Other chest pain R07.89 ; Finger pain, l eft M79.645 ; Chronic GERD K21.9 and Muscle strain of chest wall, initial encounter S29.011A [address] [address] Dec, [facility] [address] [place] [address] Dec, Other constipation K59.09 ; Irregular pe riods N92.6 and Absent periods N91.[address] [address] Oct, [address] [address] Oct, Weight gain R63.[address] [address] Oct, Generalized anxiety disorder F41.[address] [address] Sep, [address] [address] Sep, Absent periods N91.2 and Decreased heari ng of left ear H91.[address] [address] Sep, [address] [address] Sep, Pre-op exam Z01.818 and Abscess of chest wall L02.[address] [address] Sep, [address] [address] Sep, Prediabetes R73.09 ; Vitamin D deficienc y E55.9 ; Mixed hyperlipidemia E78.2 and Arthritis of ankle, left M19.[address] [address] Sep, Smoking trying to quit Z72.0 ; Chronic G ERD K21.9 ; Generalized anxiety disorder F41.1 ; Other chest pain R07.89 ; Other constipation K59.09 and Right upper quadrant pain R10.[address] [address] Aug, [address] [address] 15 Aug, 2017 Other chronic pain G89.29 [facility] [address] [place] [address] 14 Aug, 2017 Mixed hyperlipidemia E78.2 ; Fibromyalgi a M79.7 ; Lumbago of lumbar region with sciatica M54.40 ; History of gestational diabetes Z86.32 ; Prediabetes R73.09 ; Vitamin D deficiency E55.9 ; Weight gain R63.5 ; control counseling Z30.09 ; Pain, dental K08.89 and Flank pain R10.9 [facility] [address] [place] [address] Aug, [facility] [address] [place] [address] Jun, Acute left ankle pain M25.572 [facility] [address] [place] [address] Jun, [facility] [address] [place] [address] Jun, [facility] [address] [place] [address] Jun, Acute left ankle pain M25.572 [facility] [address] [place] [address] Jun, [facility] [address] [place] [address] Jun, Acute left ankle pain M25.572 [facility] [address] [place] [address] Jun, Influenza vaccine needed Z23 and Irregul ar periods N92.6 [facility] [address] [place] [address] May, Mixed hyperlipidemia E78.2 [facility] [address] [place] [address] May, [facility] [address] [place] [address] May, Chronic GERD K21.9 [facility] [address] [place] [address] Apr, Weight gain R63.5 [facility] [address] [place] [address] Apr, Chronic GERD K21.9 and Weight gain R63.[address] [address] Mar, Depression with anxiety F41.8 and Chroni c idiopathic constipation K59.[address] [address] Mar, Other chronic pain G89.[address] [address] Mar, Post herpetic neuralgia B02.[address] [address] Mar, Post herpetic neuralgia B02.[address] [address] Mar, [address] [address] Mar, Other elevated white blood cell (WBC) co unt D72.[address] [address] Mar, Other elevated white blood cell (WBC) co unt D72.828 and Dyslipidemia E78.[address] [address] Feb, [address] [address] Feb, Vitamin D deficiency E55.9 ; Dyslipidemi a E78.5 ; Other elevated white blood cell (WBC) count D72.828 and Skin tag L91.[address] [address] Feb, [address] [address] Feb, Vitamin D deficiency E55.9 and Dyslipide sourav E78.[address] [address] Feb, [address] [address] Feb, Post herpetic neuralgia B02.29 ; Thyroid disorder screen Z13.29 ; Mixed hyperlipidemia E78.2 ; Chronic GERD K21.9 ; Lumbago of lumbar region with sciatica M54.40 ; Prediabetes R73.03 ; Other fatigue R53.83 ; Vitamin D deficiency E55.9 and Vitamin B 12 deficiency E53.8 [facility] [address] [place] [address] Feb, Reactive airway disease, mild persistent , uncomplicated J45.[address] [address] Feb, Chronic GERD K21.[address] [address] Feb, Mixed hyperlipidemia E78.2 and Other chr onic pain G89.[address] [address] Feb, Lumbago with sciatica, left side M54.42 ; Mixed hyperlipidemia E78.2 and Reactive airway disease, mild persistent, uncomplicated J45.[address] [address] Feb, Chronic GERD K21.[address] [address] Feb, [address] [address] Feb, [address] [address] Feb, Post herpetic neuralgia B02.[address] [address] Feb, Allergic contact dermatitis due to other agents L23.89 and Post herpetic neuralgia B02.[address] [address] Feb, Chronic GERD K21.9 [facility] [address] [place] [address] Feb, Chronic GERD K21.9 [facility] [address] [place] [address] January, Post herpetic neuralgia B02.29 [facility] [address] [place] [address] January, Lumbago with sciatica, left side M54.42 [facility] [address] [place] [address] January, [facility] [address] [place] [address] January, Lumbago of lumbar region with sciatica M 54.40 [facility] [address] [place] [address] January, Other chronic pain G89.29 and Lumbago wi th sciatica, left side M54.42 [facility] [address] [place] [address] January, Depression with anxiety F41.8 [facility] [address] [place] [address] January, Mixed hyperlipidemia E78.2 [facility] [address] [place] [address] January, Abscess of left groin L02.214 [facility] [address] [place] [address] Dec, Depression with anxiety F41.8 [facility] [address] [place] [address] Dec, Irregular periods N92.6 [facility] [address] [place] [address] Nov, Left wrist pain M25.532 and Acute left a nkle pain M25.572 [facility] [address] [place] [address] Nov, Post herpetic neuralgia B02.29 and Absce ss of left groin L02.214 [facility] [address] [place] [address] Sep, Irregular periods N92.[address] [address] Sep, Mixed hyperlipidemia E78.2 ; Flank pain R10.9 and Post herpetic neuralgia B02.[address] [address] Aug, Lumbago of lumbar region with sciatica M 54.40 ; Chronic idiopathic constipation K59.09 ; Depression with anxiety F41.8 and Mixed hyperlipidemia E78.[address] [address] Aug, Other chronic pain G89.[address] [address] Aug, Reactive airway disease, mild persistent , uncomplicated J45.[address] [address] Aug, [address] [address] Aug, Cough R05 and Allergic contact dermatiti s due to other agents L23.[address] [address] Aug, [address] [address] Jul, Other chronic pain G89.[address] [address] Jul, Upper respiratory tract infection, unspe cified type J06.9 ; Chronic GERD K21.9 ; Acute left ankle pain M25.572 and Lumbago of lumbar region with sciatica M54.[address] [address] Jun, Other chronic pain G89.29 [facility] [address] [place] [address] Jun, [address] [address] Jun, [facility] [address] [place] [address] Jun, Chronic GERD K21.[address] [address] Jun, [address] [address] 30 May, 2016 Pain in right wrist M25.531 ; Left wrist pain M25.532 ; Acute left ankle pain M25.572 ; Thoracic spine pain M54.6 ; Lumbago with sciatica, left side M54.42 ; Other chronic pain G89.29 and Dysuria R30.[address] [address] May, Chronic GERD K21.[address] [address] May, Chronic GERD K21.[address] [address] May, [address] [address] 19 May, [address] [address] 16 May, [address] [address] 16 May, [address] [address] 16 May, 2016 Mixed hyperlipidemia E78.2 ; Fibromyalgi a M79.7 ; Depression with anxiety F41.8 ; Lumbago of lumbar region with sciatica M54.40 ; Encounter to establish care Z76.89 ; Chronic GERD K21.9 ; History of gestational diabetes Z86.32 ; Chronic idiopathic constipation K59.09 ; Thyroid disorder screen Z13.29 and Need for influenza vaccination Z23 [facility] [address] [place] [address] Apr, Gestational diabetes O24.419 [facility] [address] [place] [address] Feb, Gestational diabetes O24.419 IMMUNIZATIONS No Known Immunizations SOCIAL HISTORY Never Assessed REASON FOR VISIT Call me PLAN OF CARE VITAL SIGNS MEDICATIONS Unknown [...]
--- OUTSIDE RECORDS SUMMARY | 2020-03-15 21:29 | XMS REPORT ---
Author Author Solange Sultana [facility] Address [address], [place] [address] Care Team Providers Care Marine Service Manager Name Role Phone Felisha Sultana Unavailable PROBLEMS Type Condition ICD9-CM Code BXX09-VW Code Onset Dates Condition S tatus SNOMED Code Problem Gestational diabetes O24.419 Active 58400058 Problem Lumbago of lumbar region with sciatica M54.40 Active 70251325 Problem Chronic idiopathic constipation K59.09 Active 28970034 Problem Thyroid disorder screen Z13.29 Active 880367245 Problem History of gestational diabetes Z86.32 Active 859885352 Problem Chronic GERD K21.9 Active 7611871 09 Problem Prediabetes R73.09 Active 62157126 2 Problem Fibromyalgia M79.7 Active 1923955 05 Problem Vitamin D deficiency E55.9 Active 28046708 Problem Mixed hyperlipidemia E78.2 Active 277134080 Problem Prediabetes R73.03 Active 97504181 2 Problem Depression with anxiety F41.8 Active 365730191 Problem Other elevated white blood cell (WBC) count D72.82 8 Active 289324816 Problem Absent periods N91.2 Active 05797 001 Problem Generalized anxiety disorder F41.1 A ctive 66515104 Problem Irritable bowel syndrome with diarrhea K58.0 Active 670239874 Problem Cigarette nicotine dependence, uncomplicated F17.2 10 Active 03033662 Problem Pain in right wrist M25.531 Active 72104181 Problem Lumbago with sciatica, left side M54.42 Active 569752683 Problem Other chronic pain G89.29 Active 8 4502544 Problem Left hand pain M79.642 Active 36653 6609129674 Problem Decreased hearing of left ear H91.92 Active 88681212 Problem Cervical pain M54.2 Active 047210 05 Problem Elevated blood pressure reading R03.0 Active 30507511 Problem Thoracic spine pain M54.6 Active 253209180 Problem Plantar fasciitis M72.2 Active 20 7252961 Problem Left wrist pain M25.532 Active 5660 8008 Problem Acute left ankle pain M25.572 Active 72984601084897 Problem Irregular periods N92.6 Active 80 526695 Problem Other fatigue R53.83 Active 768948 01 Problem Reactive airway disease, mild persistent, uncomplicated J45.30 Active 701203648738 Problem Post herpetic neuralgia B02.29 Active 3786384 ALLERGIES Substance Reaction Event Type Date Status Oxycodone HCl vomitting Drug Allergy Mar, Active Hydrocodone-Acetaminophen vomitting Drug Allergy Mar, Ac tive ENCOUNTERS Encounter Location Date Diagnosis [facility] [address] [place] [address] Mar, Edema of left foot R60.[address] [address] Mar, Irritable bowel syndrome with diarrhea K 58.0 [facility] [address] [place] [address] Mar, [facility] [address] [place] [address] Mar, [facility] [address] [place] [address] Mar, [address] [address] Feb, Irritable bowel syndrome with diarrhea K 58.0 [facility] [address] [place] [address] Feb, [facility] [address] [place] [address] Feb, Irritable bowel syndrome with diarrhea K 58.0 [facility] [address] [place] [address] Feb, control counseling Z30.09 ; Lumbag o with sciatica, left side M54.42 and Chronic GERD K21.9 [facility] [address] [place] [address] Feb, [facility] [address] [place] [address] Feb, [facility] [address] [place] [address] Feb, [address] [address] Feb, Diarrhea, unspecified type R19.7 [facility] [address] [place] [address] Feb, Abnormal glucose R73.[address] [address] Feb, Abnormal glucose R73.[address] [address] Feb, Reactive airway disease, mild persistent , uncomplicated J45.[address] [address] Feb, Lumbago with sciatica, left side M54.42 ; Cigarette nicotine dependence, uncomplicated F17.210 ; Diarrhea, unspecified type R19.7 and Abnormal glucose R73.[address] [address] January, [address] [address] January, [address] [address] January, [address] [address] January, [address] [address] January, Muscle strain of chest wall, initial enc ounter S29.011A ; Physical exam Z00.00 ; Need for hepatitis vaccination Z23 and Abscess L02.[address] [address] Dec, Left hand pain M79.642 ; Thoracic spine pain M54.6 ; Cervical pain M54.2 and Elevated blood pressure reading R03.[address] [address] Dec, Lumbago with sciatica, left side M54.42 and Decreased hearing of left ear H91.[address] [address] Dec, Other chest pain R07.89 ; Finger pain, l eft M79.645 ; Chronic GERD K21.9 and Muscle strain of chest wall, initial encounter S29.011A [address] [address] Dec, [address] [address] Dec, Other constipation K59.09 ; Irregular pe riods N92.6 and Absent periods N91.[address] [address] Oct, [address] [address] Oct, Weight gain R63.[address] [address] Oct, Generalized anxiety disorder F41.[address] [address] Sep, [address] [address] Sep, Absent periods N91.2 and Decreased heari ng of left ear H91.[address] [address] Sep, [address] [address] Sep, Pre-op exam Z01.818 and Abscess of chest wall L02.[address] [address] Sep, [address] [address] Sep, Prediabetes R73.09 ; Vitamin D deficienc y E55.9 ; Mixed hyperlipidemia E78.2 and Arthritis of ankle, left M19.[address] [place] [address] Sep, Smoking trying to quit Z72.0 ; Chronic G ERD K21.9 ; Generalized anxiety disorder F41.1 ; Other chest pain R07.89 ; Other constipation K59.09 and Right upper quadrant pain R10.11 [facility] [address] [place] [address] Aug, [address] [address] Aug, Other chronic pain G89.[address] [address] Aug, Mixed hyperlipidemia E78.2 ; Fibromyalgi a M79.7 ; Lumbago of lumbar region with sciatica M54.40 ; History of gestational diabetes Z86.32 ; Prediabetes R73.09 ; Vitamin D deficiency E55.9 ; Weight gain R63.5 ; control counseling Z30.09 ; Pain, dental K08.89 and Flank pain R10.[address] [address] Aug, [address] [address] Jun, Acute left ankle pain M25.[address] [address] Jun, [address] [address] Jun, [address] [address] Jun, Acute left ankle pain M25.[address] [address] Jun, [address] [address] Jun, Acute left ankle pain M25.[address] [address] Jun, Influenza vaccine needed Z23 and Irregul ar periods N92.[address] [place] [address] May, Mixed hyperlipidemia E78.2 [facility] [address] [place] [address] May, [facility] [address] [place] [address] May, Chronic GERD K21.9 [facility] [address] [place] [address] Apr, Weight gain R63.5 [facility] [address] [place] [address] Apr, Chronic GERD K21.9 and Weight gain R63.[address] [address] Mar, Depression with anxiety F41.8 and Chroni c idiopathic constipation K59.09 [facility] [address] [place] [address] Mar, Other chronic pain G89.29 [facility] [address] [place] [address] Mar, Post herpetic neuralgia B02.[address] [address] Mar, Post herpetic neuralgia B02.29 [facility] [address] [place] [address] Mar, [facility] [address] [place] [address] Mar, Other elevated white blood cell (WBC) co unt D72.828 [facility] [address] [place] [address] Mar, Other elevated white blood cell (WBC) co unt D72.828 and Dyslipidemia E78.5 [facility] [address] [place] [address] Feb, [facility] [address] [place] [address] Feb, Vitamin D deficiency E55.9 ; Dyslipidemi a E78.5 ; Other elevated white blood cell (WBC) count D72.828 and Skin tag L91.[address] [address] Feb, [address] [address] Feb, Vitamin D deficiency E55.9 and Dyslipide sourav E78.[address] [address] Feb, [address] [address] Feb, Post herpetic neuralgia B02.29 ; Thyroid disorder screen Z13.29 ; Mixed hyperlipidemia E78.2 ; Chronic GERD K21.9 ; Lumbago of lumbar region with sciatica M54.40 ; Prediabetes R73.03 ; Other fatigue R53.83 ; Vitamin D deficiency E55.9 and Vitamin B 12 deficiency E53.[address] [address] Feb, Reactive airway disease, mild persistent , uncomplicated J45.[address] [address] Feb, Chronic GERD K21.[address] [address] Feb, Mixed hyperlipidemia E78.2 and Other chr onic pain G89.[address] [address] Feb, Lumbago with sciatica, left side M54.42 ; Mixed hyperlipidemia E78.2 and Reactive airway disease, mild persistent, uncomplicated J45.[address] [address] Feb, Chronic GERD K21.[address] [address] Feb, [address] [address] Feb, [address] [address] 16 Feb, 2017 Post herpetic neuralgia B02.29 [facility] [address] [place] [address] 16 Feb, 2017 Allergic contact dermatitis due to other agents L23.89 and Post herpetic neuralgia B02.29 [facility] [address] [place] [address] 16 Feb, 2017 Chronic GERD K21.9 [facility] [address] [place] [address] Feb, Chronic GERD K21.9 [facility] [address] [place] [address] January, Post herpetic neuralgia B02.29 [facility] [address] [place] [address] January, Lumbago with sciatica, left side M54.42 [facility] [address] [place] [address] January, [facility] [address] [place] [address] January, Lumbago of lumbar region with sciatica M 54.40 [facility] [address] [place] [address] January, Other chronic pain G89.29 and Lumbago wi th sciatica, left side M54.42 [facility] [address] [place] [address] January, Depression with anxiety F41.8 [facility] [address] [place] [address] January, Mixed hyperlipidemia E78.2 [facility] [address] [place] [address] January, Abscess of left groin L02.214 [facility] [address] [place] [address] Dec, Depression with anxiety F41.8 [facility] [address] [place] [address] Dec, Irregular periods N92.6 [facility] [address] [place] [address] Nov, Left wrist pain M25.532 and Acute left a nkle pain M25.[address] [address] Nov, Post herpetic neuralgia B02.29 and Absce ss of left groin L02.[address] [address] Sep, Irregular periods N92.[address] [address] Sep, Mixed hyperlipidemia E78.2 ; Flank pain R10.9 and Post herpetic neuralgia B02.[address] [address] Aug, Lumbago of lumbar region with sciatica M 54.40 ; Chronic idiopathic constipation K59.09 ; Depression with anxiety F41.8 and Mixed hyperlipidemia E78.[address] [address] Aug, Other chronic pain G89.[address] [address] Aug, Reactive airway disease, mild persistent , uncomplicated J45.[address] [address] Aug, [address] [address] Aug, Cough R05 and Allergic contact dermatiti s due to other agents L23.[address] [address] 05 Aug, [address] [address] Jul, Other chronic pain G89.[address] [address] 09 Jul, 2016 Upper respiratory tract infection, unspe cified type J06.9 ; Chronic GERD K21.9 ; Acute left ankle pain M25.572 and Lumbago of lumbar region with sciatica M54.[address] [address] Jun, Other chronic pain G89.[address] [address] Jun, [address] [address] Jun, [address] [address] Jun, Chronic GERD K21.[address] [address] Jun, [address] [address] 30 May, 2016 Pain in right wrist M25.531 ; Left wrist pain M25.532 ; Acute left ankle pain M25.572 ; Thoracic spine pain M54.6 ; Lumbago with sciatica, left side M54.42 ; Other chronic pain G89.29 and Dysuria R30.[address] [address] May, Chronic GERD K21.[address] [address] May, Chronic GERD K21.[address] [address] May, [address] [address] May, [address] [address] May, [address] [address] May, [address] [address] 16 May, 2016 Mixed hyperlipidemia E78.2 ; Fibromyalgi a M79.7 ; Depression with anxiety F41.8 ; Lumbago of lumbar region with sciatica M54.40 ; Encounter to establish care Z76.89 ; Chronic GERD K21.9 ; History of gestational diabetes Z86.32 ; Chronic idiopathic constipation K59.09 ; Thyroid disorder screen Z13.29 and Need for influenza vaccination Z23 [facility] [address] [place], [place] [address] Apr, Gestational diabetes O24.419 [facility] [address] [place] [address] Feb, Gestational diabetes O24.419 IMMUNIZATIONS No Known Immunizations SOCIAL HISTORY Never Assessed REASON FOR VISIT ankle swelling PLAN OF CARE Activity Details Follow Up 3 Months, prn Reason: VITAL SIGNS Height 69.5 in 2018-04-23 Weight 312 lbs 2018-04-23 Heart Rate 77 /min 2018-04-23 Respiratory Rate 16 /min 2018-04-23 Oximetry 98 % 2018-04-23 BMI 45.41 kg/m2 2018-04-23 Blood pressure systolic 114 mm Hg 2018-04-23 Blood pressure diastolic 53 mm Hg 2018-04-23 MEDICATIONS Medication Instructions Dosage Frequency Start Date End Date Duration S tatus MorphaBond ER 15 MG Orally every 12 hrs 1 tablet 12h Aug, 30 days Not-Taking Xifaxan 550 MG Orally Three times a day 1 tablet 8h Feb, 14 days Active Gralise 600 MG Orally Once a day 1 tablet in the am, 1 tablet with lunch, 3 tablets with evening meal 24h Feb, Ac tive Fiber Not-Taking Gabapentin 600 MG Orally five times daily 1 tablet Active Viberzi 100 MG Orally Two times daily as directed Mar, 30 days Active Flonase 50 MCG/ACT Nasally Once a day 1 spray in each nostril 24h Active Multivitamin Adult - Act nancy Pantoprazole Sodium 40 MG Orally BID 1 tablet 12h Jul, 30 days Active Sertraline HCl 100 MG Orally Once a day 2 tablet 24h Active Victoza 18 MG/3ML Subcutaneous inject 1.8 Once daily as directed Feb, Not-Taking MedroxyPROGESTERone Acetate 10 MG Orally Once a day 1 tablet with f ood 24h Sep, Not-Taking Pennsaid 2 % Transdermal Twice a day 2 applications to affected area 12h 30 Active Ventolin HFA 108 (90 Base) MCG/ACT Inhalation every 4 hrs 2 puffs a s needed 4h Aug, 30 days Active Mobic 15 MG Orally Once a day 1 tablet 24h Jul, 90 d ays Active Sprintec 28 0.25-35 MG-MCG Orally Once a day 1 tablet 24h 2016 28 day(s) Active Zoloft 100 MG Orally Once a day 1 tablet 24h Active Cyclobenzaprine HCl 10 MG TAKE 1 TABLET BY MOUTH THREE (3) T IMES DAILY 30 Active Benefiber - Orally Two times daily 2 May, 30 days Not-Taking Colace 100 MG Orally Once a day 1 capsule as needed 24h 30 Active Nortriptyline HCl 25 MG Orally QHS 1 capsule 30 Active Tramadol HCl 50 MG TAKE 1 TABLET BY MOUTH THREE TIMES DAILY 30 Active Wellbutrin SR 150 MG Orally Twice a day 1 tablet 12h Feb, 30 day(s) Active Pravastatin Sodium 20 MG [...]
--- OUTSIDE RECORDS SUMMARY | 2020-03-15 21:29 | XMS REPORT ---
Author Author Solange Sultana [facility] Address [address] [place], [place] [id number] Care Team Providers Care Inspector Returned Materials Name Role Phone Felisha Sultana Unavailable PROBLEMS Type Condition ICD9-CM Code LPC68-CH Code Onset Dates Condition S tatus SNOMED Code Problem Gestational diabetes O24.419 Active 18406178 Problem Lumbago of lumbar region with sciatica M54.40 Active 23228580 Problem Chronic idiopathic constipation K59.09 Active 93612027 Problem Thyroid disorder screen Z13.29 Active 509591227 Problem History of gestational diabetes Z86.32 Active 958686333 Problem Chronic GERD K21.9 Active 2363352 09 Problem Prediabetes R73.09 Active 13551824 2 Problem Fibromyalgia M79.7 Active 3276857 05 Problem Vitamin D deficiency E55.9 Active 86698478 Problem Mixed hyperlipidemia E78.2 Active 432201314 Problem Prediabetes R73.03 Active 16499857 2 Problem Depression with anxiety F41.8 Active 406955903 Problem Other elevated white blood cell (WBC) count D72.82 8 Active 251006732 Problem Absent periods N91.2 Active 56322 001 Problem Generalized anxiety disorder F41.1 A ctive 08322550 Problem Irritable bowel syndrome with diarrhea K58.0 Active 160889397 Problem Cigarette nicotine dependence, uncomplicated F17.2 10 Active 11214730 Problem Pain in right wrist M25.531 Active 32507799 Problem Lumbago with sciatica, left side M54.42 Active 182078563 Problem Other chronic pain G89.29 Active 8 5876339 Problem Left hand pain M79.642 Active 73185 7480930716 Problem Decreased hearing of left ear H91.92 Active 55766573 Problem Cervical pain M54.2 Active 045371 05 Problem Elevated blood pressure reading R03.0 Active 22185613 Problem Thoracic spine pain M54.6 Active 858962081 Problem Plantar fasciitis M72.2 Active 20 2765572 Problem Left wrist pain M25.532 Active 5660 8008 Problem Acute left ankle pain M25.572 Active 69441168980075 Problem Irregular periods N92.6 Active 80 512913 Problem Other fatigue R53.83 Active 173943 01 Problem Reactive airway disease, mild persistent, uncomplicated J45.30 Active 594954130018 Problem Post herpetic neuralgia B02.29 Active 6448668 ALLERGIES No Information ENCOUNTERS Encounter Location Date Diagnosis [facility] [address] [place] [address] Mar, [facility] [address] [place] [address] Mar, [facility] [address] [place] [address] Mar, [facility] [address] [place] [address] Mar, [facility] [address] [place] [address] Feb, Irritable bowel syndrome with diarrhea K 58.0 [facility] [address] [place] [address] Feb, [facility] [address] [place] [address] Feb, Irritable bowel syndrome with diarrhea K 58.0 [facility] [address] [place] [address] Feb, control counseling Z30.09 ; Lumbag o with sciatica, left side M54.42 and Chronic GERD K21.9 [facility] [address] [place] [address] 18 Feb, 2018 [facility] [address] [place] [address] Feb, [facility] [address] [place] [address] Feb, [facility] [address] [place] [address] 08 Feb, 2018 Diarrhea, unspecified type R19.7 [facility] [address] [place] [address] Feb, Abnormal glucose R73.[address] [address] Feb, Abnormal glucose R73.[address] [address] Feb, Reactive airway disease, mild persistent , uncomplicated J45.[address] [address] Feb, Lumbago with sciatica, left side M54.42 ; Cigarette nicotine dependence, uncomplicated F17.210 ; Diarrhea, unspecified type R19.7 and Abnormal glucose R73.[address] [address] January, [address] [address] January, [address] [address] January, [address] [address] January, [address] [address] January, Muscle strain of chest wall, initial enc ounter S29.011A ; Physical exam Z00.00 ; Need for hepatitis vaccination Z23 and Abscess L02.[address] [address] Dec, Left hand pain M79.642 ; Thoracic spine pain M54.6 ; Cervical pain M54.2 and Elevated blood pressure reading R03.[address] [address] Dec, Lumbago with sciatica, left side M54.42 and Decreased hearing of left ear H91.[address] [address] Dec, Other chest pain R07.89 ; Finger pain, l eft M79.645 ; Chronic GERD K21.9 and Muscle strain of chest wall, initial encounter S29.011A [address] [address] Dec, [address] [address] Dec, Other constipation K59.09 ; Irregular pe riods N92.6 and Absent periods N91.[address] [address] Oct, [address] [address] Oct, Weight gain R63.[address] [address] Oct, Generalized anxiety disorder F41.[address] [address] Sep, [address] [address] Sep, Absent periods N91.2 and Decreased heari ng of left ear H91.[address] [address] Sep, [address] [address] Sep, Pre-op exam Z01.818 and Abscess of chest wall L02.[address] [address] Sep, [address] [address] Sep, Prediabetes R73.09 ; Vitamin D deficienc y E55.9 ; Mixed hyperlipidemia E78.2 and Arthritis of ankle, left M19.[address] [address] Sep, Smoking trying to quit Z72.0 ; Chronic G ERD K21.9 ; Generalized anxiety disorder F41.1 ; Other chest pain R07.89 ; Other constipation K59.09 and Right upper quadrant pain R10.[address] [address] Aug, [facility] [address] [place] [address] Aug, Other chronic pain G89.29 [facility] [address] [place] [address] Aug, Mixed hyperlipidemia E78.2 ; Fibromyalgi a M79.7 ; Lumbago of lumbar region with sciatica M54.40 ; History of gestational diabetes Z86.32 ; Prediabetes R73.09 ; Vitamin D deficiency E55.9 ; Weight gain R63.5 ; control counseling Z30.09 ; Pain, dental K08.89 and Flank pain R10.9 [facility] [address] [place] [address] Aug, [facility] [address] [place] [address] Jun, Acute left ankle pain M25.572 [facility] [address] [place] [address] Jun, [facility] [address] [place] [address] Jun, [facility] [address] [place] [address] Jun, Acute left ankle pain M25.572 [facility] [address] [place] [address] Jun, [facility] [address] [place] [address] Jun, Acute left ankle pain M25.572 [facility] [address] [place] [address] Jun, Influenza vaccine needed Z23 and Irregul ar periods N92.6 [facility] [address] [place] [address] May, Mixed hyperlipidemia E78.2 [facility] [address] [place] [address] May, [facility] [address] [place] [address] May, Chronic GERD K21.9 [facility] [address] [place] [address] Apr, Weight gain R63.[address] [address] Apr, Chronic GERD K21.9 and Weight gain R63.[address] [address] Mar, Depression with anxiety F41.8 and Chroni c idiopathic constipation K59.[address] [address] Mar, Other chronic pain G89.[address] [address] Mar, Post herpetic neuralgia B02.[address] [address] Mar, Post herpetic neuralgia B02.[address] [address] Mar, [address] [address] Mar, Other elevated white blood cell (WBC) co unt D72.[address] [address] Mar, Other elevated white blood cell (WBC) co unt D72.828 and Dyslipidemia E78.[address] [address] Feb, [address] [address] Feb, Vitamin D deficiency E55.9 ; Dyslipidemi a E78.5 ; Other elevated white blood cell (WBC) count D72.828 and Skin tag L91.[address] [address] Feb, [address] [address] Feb, Vitamin D deficiency E55.9 and Dyslipide sourav E78.5 [facility] [address] [place] [address] Feb, [address] [address] Feb, Post herpetic neuralgia B02.29 ; Thyroid disorder screen Z13.29 ; Mixed hyperlipidemia E78.2 ; Chronic GERD K21.9 ; Lumbago of lumbar region with sciatica M54.40 ; Prediabetes R73.03 ; Other fatigue R53.83 ; Vitamin D deficiency E55.9 and Vitamin B 12 deficiency E53.8 [facility] [address] [place] [address] Feb, Reactive airway disease, mild persistent , uncomplicated J45.30 [facility] [address] [place] [address] Feb, Chronic GERD K21.[address] [address] Feb, Mixed hyperlipidemia E78.2 and Other chr onic pain G89.[address] [address] Feb, Lumbago with sciatica, left side M54.42 ; Mixed hyperlipidemia E78.2 and Reactive airway disease, mild persistent, uncomplicated J45.[address] [address] Feb, Chronic GERD K21.9 [facility] [address] [place] [address] Feb, [facility] [address] [place] [address] Feb, [address] [address] Feb, Post herpetic neuralgia B02.[address] [address] Feb, Allergic contact dermatitis due to other agents L23.89 and Post herpetic neuralgia B02.29 [facility] [place] [address] Feb, Chronic GERD K21.9 [facility] [address] [place] [address] Feb, Chronic GERD K21.9 [facility] [address] [place] [address] January, Post herpetic neuralgia B02.29 [facility] [address] [place] [address] January, Lumbago with sciatica, left side M54.42 [facility] [address] [place] [address] January, [facility] [address] [place] [address] January, Lumbago of lumbar region with sciatica M 54.40 [facility] [address] [place] [address] January, Other chronic pain G89.29 and Lumbago wi th sciatica, left side M54.42 [facility] [address] [place] [address] January, Depression with anxiety F41.8 [facility] [address] [place] [address] January, Mixed hyperlipidemia E78.2 [facility] [address] [place] [address] January, Abscess of left groin L02.214 [facility] [address] [place] [address] Dec, Depression with anxiety F41.8 [facility] [address] [place] [address] Dec, Irregular periods N92.6 [facility] [address] [place] [address] Nov, Left wrist pain M25.532 and Acute left a nkle pain M25.572 [facility] [address] [place] [address] Nov, Post herpetic neuralgia B02.29 and Absce ss of left groin L02.214 [facility] [address] [place] [address] Sep, Irregular periods N92.[address] [address] Sep, Mixed hyperlipidemia E78.2 ; Flank pain R10.9 and Post herpetic neuralgia B02.[address] [address] Aug, Lumbago of lumbar region with sciatica M 54.40 ; Chronic idiopathic constipation K59.09 ; Depression with anxiety F41.8 and Mixed hyperlipidemia E78.[address] [address] Aug, Other chronic pain G89.[address] [address] Aug, Reactive airway disease, mild persistent , uncomplicated J45.[address] [address] Aug, [address] [address] Aug, Cough R05 and Allergic contact dermatiti s due to other agents L23.[address] [address] Aug, [address] [address] Jul, Other chronic pain G89.[address] [address] Jul, Upper respiratory tract infection, unspe cified type J06.9 ; Chronic GERD K21.9 ; Acute left ankle pain M25.572 and Lumbago of lumbar region with sciatica M54.[address] [address] Jun, Other chronic pain G89.[address] [address] Jun, [address] [address] Jun, [address] [address] Jun, Chronic GERD K21.[address] [address] Jun, [address] [address] 30 May, 2016 Pain in right wrist M25.531 ; Left wrist pain M25.532 ; Acute left ankle pain M25.572 ; Thoracic spine pain M54.6 ; Lumbago with sciatica, left side M54.42 ; Other chronic pain G89.29 and Dysuria R30.[address] [address] May, Chronic GERD K21.[address] [address] May, Chronic GERD K21.[address] [address] May, [address] [address] May, [address] [address] May, [address] [address] May, [address] [address] 16 May, 2016 Mixed hyperlipidemia E78.2 ; Fibromyalgi a M79.7 ; Depression with anxiety F41.8 ; Lumbago of lumbar region with sciatica M54.40 ; Encounter to establish care Z76.89 ; Chronic GERD K21.9 ; History of gestational diabetes Z86.32 ; Chronic idiopathic constipation K59.09 ; Thyroid disorder screen Z13.29 and Need for influenza vaccination Z23 [facility] [address] [place], [place] [address] Apr, Gestational diabetes O24.419 [facility] [address] [place], [place] [address] Feb, Gestational diabetes O24.419 IMMUNIZATIONS No Known Immunizations SOCIAL HISTORY Never Assessed REASON FOR VISIT walking stick/cane PLAN OF CARE VITAL SIGNS MEDICATIONS Unknown [...] ankle 09/2017 Hospitalization History [facility]- Hyperglycemia and February 2016 Hospitalization History Ankle surgery 09/2017
--- OUTSIDE RECORDS SUMMARY | 2020-03-15 21:30 | XMS REPORT | Continuity of Care Document ---
Author Organization Unknown Address Unknown Phone Unavailable Allergies Active Description Code Type Severity Reaction Onset Reported/Identified Relationship to Patient Clinical Status Yes HYDROCODONE BITARTRATE [id number] Drug Allergy N/A N/A Yes LATEX EXAM GLOVES [id number] Drug Allergy N/A N/A Yes OXYCODONE ER Drug Allergy N/A N/A Yes hazelnut hazelnut Drug Allergy Unknown SWELLING 02/25/2016 Yes hydrocodone hydrocodone Drug Allergy Unknown VOMITING 02/25/2016 Yes orange orange Drug Allergy Unknown INDIGESTION 02/25/2016 Yes oxycodone oxycodone Drug Allergy Unknown VOMITING 02/25/2016 Yes latex latex Drug Allergy Mild rash 03/10/2016 Yes No Known Medication Allergies NKMA N/A N/A 05/17/2016 Yes HYDROcodone NKMA N/A N/A 10/08/2017 Yes Latex NKMA N/A N/A 10/08/2017 Yes oxyCODONE NKMA N/A N/A 10/08/2017 Yes Tape 11836 N/A N/A 10/08/2017 Yes Nuts 44415 Severe N/A 10/09/2017 Yes Oranges 36890 Mild N/A 10/09/2017 Medications Medication Packaging Start Date St op Date Route Dosage Sig pantoprazole(pantoprazole) 10/08/2017 Oral 40 mg 40 mg, Oral, Daily, 0 Refill(s) cyclobenzaprine(cyclobenzapr ine 10 mg oral tablet) 1 tabs 10/08/2017 Oral 1 0 mg 10 mg = 1 tabs, Oral, TID, P RN: as needed for spasm, 30 tabs, 0 Refill(s) nortriptyline(nortriptyline) 10/08/2017 Oral 25 mg 25 mg, Oral, Bedtime (once a day), 0 Refill(s) meloxicam(meloxicam) 10/08/2017 10/11/2017 Oral 15 mg 15 mg, Oral, Daily, 0 Refill(s) sertraline(sertraline) 10/08/2017 Oral 50 mg 50 m g, Oral, Daily, 0 Refill(s) traMADol(traMADol) 10/08/2017 Oral 50 mg 50 m g, Oral, q12hr, 0 Refill(s) pravastatin(pravastatin) 10/08/2017 Oral 20 mg 20 m g, Oral, Daily, 0 Refill(s) albuterol(ProAir HFA 90 mcg/ inh inhalation aerosol) 2 puffs 10/08/2017 Inhalation 2 puffs, Inhalation, QID, CT N: soa, 0 Refill(s) gabapentin(gabapentin) 10/08/2017 Oral 1,800 mg 1 ,800 mg, Oral, Bedtime (once a day), 0 Refill(s) multivitamin(multivitamin) 1 tabs 10/08/2017 Oral 1 tabs, Oral, Daily, 0 Refill(s) liraglutide(Saxenda) 10/08/2017 SubCutaneous SubCutaneous, Daily, 0 Refill(s) ondansetron(Zofran) 2 mL 10/08/2017 10/08/2017 IV Push 4 mg 4 mg = 2 mL, IV Push, Once gabapentin(gabapentin) 2 cap s 10/08/2017 10/08/2017 Oral 600 mg 600 mg = 2 caps, Oral, Once HYDROmorphone(Dilaudid) 0.5 mL 10/08/2017 10/08/2017 IV Push 0.5 mg 0.5 mg = 0.5 mL, IV Push, q5min, PRN: Pain acetaminophen(Tylenol range dose) 3 tabs 10/08/2017 10/08/2017 Oral 975 mg 975 mg = 3 tabs, Oral, Once, PRN: Pain Mild (1-3) metoclopramide(Reglan) 2 mL 10/08/2017 10/08/2017 IV Push 10 mg 10 mg = 2 mL, IV Push, Once Lactated Ringers Injection(L actated Ringers Injection 1,000 mL) 1,000 mL 10/08/2017 10/08/2017 IV 10 mL/hr, IV midazolam(Versed) 2 mL 10/08/2017 10/08/2017 IV Push 2 mg 2 mg = 2 mL, IV Push, Once famotidine(Pepcid) 2 mL 10/08/2017 10/08/2017 IV Push 20 mg 20 mg = 2 mL, IV Push, Once docusate(Colace) 1 caps 10/08/2017 10/11/2017 Oral 100 mg 100 mg = 1 caps, Oral, BID morphine(morphine) 3 mL 10/08/2017 10/09/2017 IV Push 6 mg 6 mg = 3 mL, IV Push, q4hr, PRN: Pain Severe (7-10) ondansetron(Zofran) 2 mL 10/08/2017 10/11/2017 IV Push 4 mg 4 mg = 2 mL, IV Push, q6hr, PRN: Nausea Al hydroxide/Mg hydroxide/si methicone(Maalox Advanced Maximum Strength oral suspension) 30 mL 10/08/19 18 10/11/2017 Oral 30 mL, Oral, q6hr, PRN: GERD/Heartburn HYDROmorphone(HYDROmorphone) 1 tabs 10/08/2017 10/09/2017 Oral 2 mg 2 mg = 1 tabs, Oral, q4hr, PRN: Pain Severe (7-10) ceFAZolin(ceFAZolin) 20 mL 10/08/2017 10/09/2017 IV Push 2 g 2 g = 20 mL, IV Push, q8hr nortriptyline(nortriptyline) 1 caps 10/08/2017 10/11/2017 Oral 25 mg 25 mg = 1 caps, Oral, Bedtime (once a day) pantoprazole(pantoprazole) 1 tabs 10/08/2017 10/11/2017 Oral 40 mg 40 mg = 1 tabs, Oral, Daily gabapentin(gabapentin) 6 cap s 10/08/2017 10/11/2017 Oral 1,800 mg 1,800 mg = 6 caps, Oral, Bedtime (once a day) atorvastatin(atorvastatin) 1 tabs 10/08/2017 10/11/2017 Oral 10 mg 10 mg = 1 tabs, Oral, Bedtime (once a day) sertraline(sertraline) 1 tab s 10/08/2017 10/11/2017 Oral 50 mg 50 mg = 1 tabs, Oral, Daily potassium chloride(potassium chloride 10 mEq oral tablet, extended release) 2 tabs 10/09/2017 10/10/2017 Oral 20 mEq 20 mEq = 2 tabs, Oral, BID HYDROmorphone(HYDROmorphone) 1 tabs 10/09/2017 10/11/2017 Oral 4 mg 4 mg = 1 tabs, Oral, q4hr, PRN: Pain Severe (7-10) morphine(morphine) 0.8 mL 10/09/2017 10/11/2017 IV Push 8 mg 8 mg = 0.8 mL, IV Push, q4hr, PRN: Pain - Breakthrough nalOXone(Narcan) 1 mL 10/09/2017 10/11/2017 IV Push 0.4 mg 0.4 mg = 1 mL, IV Push, Daily, PRN: Opiate Reversal HYDROmorphone(HYDROmorphone [employer] 30 mg) 30 mL 10/09/2017 10/11/2017 IV 30 mg [employer], IV, Stop: 12/08/17 13:57:00 CDT acetaminophen(acetaminophen) 2 tabs 10/10/2017 10/11/2017 Oral 650 mg 650 mg = 2 tabs, Oral, q4hr, PRN: Pain Mild (1-3) atorvastatin(atorvastatin 10 mg oral table t) 1 tabs 10/11/2017 Oral 10 mg 10 mg = 1 tabs, Oral, Bedtime (once a day), 0 Refill(s) nortriptyline(nortriptyline 25 mg oral cap celeste) 1 caps 10/11/2017 Oral 25 mg 25 mg = 1 caps, Oral, Bedtim e (once a day), 0 Refill(s) pantoprazole(pantoprazole 40 mg oral delayed release tablet) 1 tabs 10/11/2017 Oral 4 0 mg 40 mg = 1 tabs, Oral, Daily, 0 Refill(s) sertraline(sertraline 50 mg oral tablet) 1 tabs 10/11/2017 Oral 50 mg 50 mg = 1 tabs, Oral, Daily, 0 Refill(s) gabapentin(gabapentin 300 mg oral capsule) 6 caps 10/11/2017 Oral 1,800 mg 1,800 mg = 6 caps, Oral, Bed time (once a day), 0 Refill(s) HYDROmorphone(HYDROmorphone 4 mg oral tabl et) 1 tabs 10/11/2017 Oral 4 mg 4 mg = 1 tabs, Oral, q4hr, PRN: Pain Severe (7-10), 0 Refill(s) aspirin(aspirin) 4 tabs 01/10/2018 01/10/2018 Oral 324 mg 324 mg = 4 tabs, Oral, Once ketorolac(Toradol) 1 mL 01/11/2018 01/11/2018 IV Push 30 mg 30 mg = 1 mL, IV Push, Once predniSONE(predniSONE 50 mg oral tablet) 1 tabs 01/11/2018 01/16/2018 Oral 50 mg 50 mg = 1 tabs, Oral, Daily, for 5 days, 5 tabs, 0 Refill(s) cyclobenzaprine(cyclobenzapr ine 10 mg oral tablet) 1 tabs 01/11/2018 Oral 1 0 mg 10 mg = 1 tabs, Oral, TID, P RN: as needed for spasm, 15 tabs, 0 Refill(s) meloxicam(meloxicam 15 mg oral tablet) 1 tabs 07/31/2019 08/20/2019 Oral 15 mg 15 mg = 1 tabs, Oral, Daily, 0 Refill(s) docusate(Colace) 08/15/2019 Oral 100 mg 100 mg, Oral, Daily, 0 Refill(s) hydrochlorothiazide(hydroCHL OROthiazide 12.5 mg oral capsule) 1 caps 08/15/2019 Oral 12.5 mg 12.5 mg = 1 caps, Oral, Michelet y, 0 Refill(s) Lactated Ringers Injection(L actated Ringers Injection 1,000 mL) 1,000 mL 08/18/2019 08/18/2019 IV 10 mL/hr, IV, St op: 08/18/19 11:00:00 [employer] midazolam(Versed) 2 mL 08/18/2019 08/18/2019 IV Push 2 mg 2 mg = 2 mL, IV Push, Once gabapentin(gabapentin) 2 cap s 08/18/2019 08/18/2019 Oral 600 mg 600 mg = 2 caps, Oral, Once scopolamine(scopolamine 1.5 mg transdermal film, extended release) 1 patches 08/18/2019 08/18/2019 TransDermal 1 mg 1 mg = 1 patches , TransDermal, Once famotidine(Pepcid) 2 mL 08/18/2019 08/18/2019 IV Push 20 mg 20 mg = 2 mL, IV Push, Once acetaminophen(acetaminophen) 3 tabs 08/18/2019 08/18/2019 Oral 975 mg 975 mg = 3 tabs, Oral, Once docusate(Colace) 1 caps 08/18/2019 08/21/2019 Oral 100 mg 100 mg = 1 caps, Oral, BID ondansetron(Zofran) 2 mL 08/18/2019 08/21/2019 IV Push 4 mg 4 mg = 2 mL, IV Push, q6hr, PRN: Nausea Al hydroxide/Mg hydroxide/si methicone(Maalox Advanced Maximum Strength oral suspension) 30 mL 08/18/20 19 08/18/2019 Oral 30 mL, Oral, q6hr, PRN: GERD/Heartburn HYDROmorphone(HYDROmorphone) 1 mL 08/18/2019 08/20/2019 IV Push 2 mg 2 mg = 1 mL, IV Push, q4hr, PRN: Pain - Breakthrough ondansetron(Zofran) 2 mL 08/18/2019 08/18/2019 IV Push 4 mg 4 mg = 2 mL, IV Push, Once HYDROmorphone(Dilaudid) 0.5 mL 08/18/2019 08/18/2019 IV Push 0.5 mg 0.5 mg = 0.5 mL, IV Push, q10min, PRN: Pain docusate(Colace) 1 caps 08/18/2019 08/18/2019 Oral 100 mg 100 mg = 1 caps, Oral, BID Al hydroxide/Mg hydroxide/si methicone(Maalox Advanced Maximum Strength oral suspension) 30 mL 08/18/20 19 08/21/2019 Oral 30 mL, Oral, q6hr, PRN: Dyspepsia/Indigestion polyethylene glycol 3350(MiraLax) 1 packets 08/18/2019 08/21/2019 Oral 17 g 17 g = 1 packets, Oral, BID Sodium Chloride 0.9% intrave nous solutio(Sodium Chloride 0.9% intravenous solution 1,000 mL) 1,000 mL 08/21/2019 IV 80 mL/hr, IV bisacodyl(bisacodyl) 1 supp 08/18/2019 08/21/2019 Rectal 10 mg 10 mg = 1 supp, Rectal, Daily, PRN: Constipation albuterol(ProAir HFA 90 mcg/ inh inhalation aerosol) 2 puffs 08/18/2019 08/18/2019 Inha lation 180 mcg 180 mcg = 2 puff s, Inhalation, QID, PRN: Bronchospasms atorvastatin(atorvastatin) 1 tabs 08/18/2019 08/21/2019 Oral 10 mg 10 mg = 1 tabs, Oral, Bedtime (once a day) nortriptyline(nortriptyline) 1 caps 08/18/2019 08/21/2019 Oral 25 mg 25 mg = 1 caps, Oral, Bedtime (once a day) QUEtiapine(QUEtiapine) 1 tab s 08/18/2019 08/21/2019 Oral 100 mg 100 mg = 1 tabs, Oral, Bedtime (once a day) pantoprazole(pantoprazole) 1 tabs 08/18/2019 08/21/2019 Oral 40 mg 40 mg = 1 tabs, Oral, BID sertraline(sertraline) 1 tab s 08/18/2019 08/21/2019 Oral 100 mg 100 mg = 1 tabs, Oral, BID lamoTRIgine(lamoTRIgine) 1 t abs 08/18/2019 08/21/2019 Oral 100 mg 100 mg = 1 tabs, Oral, Daily gabapentin(gabapentin) 2 cap s 08/18/2019 08/21/2019 Oral 800 mg 800 mg = 2 caps, Oral, QID traMADol(traMADol) 1 tabs 08/19/2019 08/21/2019 Oral 50 mg 50 mg = 1 tabs, Oral, q4hr, PRN: Pain - Breakthrough potassium chloride(potassium chloride 20 mEq oral tablet, extended release) 1 tabs 08/19/2019 08/20/2019 Oral 20 mEq 20 mEq = 1 tabs, Oral, q4hr cyclobenzaprine(cyclobenzaprine) 1 tabs 08/20/2019 08/21/2019 Oral 10 mg 10 mg = 1 tabs, Oral, TID, PRN: Muscle Pain polyethylene glycol 3350(MiraLax) 1 packets 08/20/2019 Oral 17 g 17 g = 1 packets, Oral, Daily, PRN: Constipation, 0 Refill(s) Problems Date Dx Coded Attending Type Code Diagnosis Diagnosed By 03/10/2016 Taurus ARIAS, Prashant Jones O24. 414 GESTATIONAL DIABETES IN , INSULIN CONTROL 03/10/2016 Taurus ARIAS, Prashant Jones O34. 21 MATERNAL CARE FOR SCAR FROM PREVIOUS DELI 03/10/2016 Prashant Condon MD O80 ENCOUNTER FOR FULL-TERM UNCOMPLICATED DELIVERY 03/10/2016 Prashant Condon MD Z3A. 38 38 WEEKS GESTATION OF 03/14/2016 Prashant Condon MD O24. 419 GESTATIONAL DIABETES MELLITUS IN , UNSP CONTROL 03/17/2016 Prashant Condno MD O09. 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 424 GESTATIONAL DIABETES IN CHILDBIRTH, INSULIN CONTRO 03/17/2016 Prashant Condon MD O69.81X0 LABOR AND DEL COMP BY CORD AROUND NECK, W/O COMPRS 03/17/2016 Prashant Condon MD O80 ENCOUNTER FOR FULL-TERM UNCOMPLICATED DELIVERY 03/17/2016 Prashant Condon MD O99. 213 OBESITY COMPLICATING , THIRD TRIMESTER 03/17/2016 Prashant Condon MD Z30. 2 ENCOUNTER FOR STERILIZATION 03/17/2016 Prashant Condon MD Z37. 0 SINGLE LIVE 03/17/2016 Prashant Condon MD Z3A. 39 39 WEEKS GESTATION OF 03/17/2016 Prashant Condon MD Z68. 42 BODY MASS INDEX (BMI) 45.0-49.9, ADULT 03/17/2016 Prashant Condon MD Z90. 710 ACQUIRED ABSENCE OF BOTH CERVIX AND UTERUS 09/04/2016 Donohue Ally Reason R05 Cough 09/04/2016 Donohue Donna Final R94.2 Abnormal results of pulmonary function studies 09/28/2016 R05 Cough MING ARIAS, SON 10/04/2017 Donohue Donna Final K76.0 Fatty (change of) liver, not elsewhere classified 10/04/2017 Donohue Ally Reason R10. 11 Right upper quadrant pain 10/11/2017 Final E66.9 O besity, unspecified 10/11/2017 Final E78.5 H yperlipidemia, unspecified 10/11/2017 Final E87.6 H ypokalemia 10/11/2017 Final F17.210 Nicotine dependence, cigarettes, uncomplicated 10/11/2017 Final F32.9 M ajor depressive disorder, single episode, unspecified 10/11/2017 Final K21.9 G jamila- esophageal reflux disease without esophagitis 10/11/2017 Admitting M19.072 Primary osteoarthritis, left ankle and foot 10/11/2017 Final R73.02 Impaired glucose tolerance (oral) 10/11/2017 Final Z68.41 Body mass index (BMI) 40.0-44.9, adult 10/11/2017 Final M19.072 Primary osteoarthritis, left ankle and foot 11/15/2017 Isiah,, Alexander Final F17.21 0 Nicotine dependence, cigarettes, uncomplicated 11/15/2017 Isiah,, Alexander Reason Z46.8 9 Encounter for fitting and adjustment of other specified devices 11/15/2017 Isiah,, Alexander Final Z88.5 Allergy status to narcotic agent status 11/15/2017 Isiah,, Alexander Final Z88.8 Allergy status to other drugs, medicaments and biological substances status 11/15/2017 Isiah,, Alexander Final Z90.89 Acquired absence of other organs 11/15/2017 Isiah,, Alexander Final Z91.04 0 Latex allergy status 11/15/2017 Isiah,, Alexander Final Z98.1 Arthrodesis status 11/19/2017 Isiah,, Alexander Final F17.21 0 Nicotine dependence, cigarettes, uncomplicated 11/19/2017 Isiah,, Alexander Reason Z46.8 9 Encounter for fitting and adjustment of other specified devices 11/19/2017 Isiah,, Alexander Final Z88.5 Allergy status to narcotic agent status 11/19/2017 Isiah,, Alexander Final Z88.8 Allergy status to other drugs, medicaments and biological substances status 11/19/2017 Isiah,, Alexander Final Z90.89 Acquired absence of other organs 11/19/2017 Isiah,, Alexander Final Z91.04 0 Latex allergy status 11/19/2017 Isiah,, Alexander Final Z98.1 Arthrodesis status 01/29/2018 Isiah,, Alexander Final F12.10 Cannabis abuse, uncomplicated 01/29/2018 Isiah,, Alexander Final F41.9 Anxiety disorder, unspecified 01/29/2018 Isiah,, Alexander Final M62.83 8 Other muscle spasm 01/29/2018 Isiah, Alexander Reason R07.8 9 Other chest pain 01/29/2018 Isiah,, Alexander Final Z87.89 1 Personal history of nicotine dependence 01/29/2018 Isiah,, Alexander Final Z88.6 Allergy status to analgesic agent status 01/29/2018 Isiah,, Alexander Final Z88.8 Allergy status to other drugs, medicaments and biological substances status 01/29/2018 Joyce Jacob Final Z91.01 8 Allergy to other foods 01/29/2018 Joyce Jacob Final Z91.04 0 Latex allergy status 01/29/2018 Joyce Jacob Final Z98.1 Arthrodesis status 08/08/2018 Donohue Donna Reason N94. 6 Dysmenorrhea, unspecified 08/08/2018 Donohue Donna Final R93.8 9 Abnormal findings on diagnostic imaging of other specified body structures 08/08/2018 Donohue Donna Final Z98.8 90 Other specified postprocedural states 06/25/2019 Conner, Sarah W F17.200 Tobacco use disorder Conner, Sarah 06/25/2019 Conner, Sarah W J20.9 Bronchitis, Acute Conner, Sarah 08/06/2019 Wren Shawn Final M 19.072 Primary osteoarthritis, left ankle and foot 08/06/2019 Wren Shawn Reason T84.418A Breakdown (mechanical) of other internal orthopedic devices, implants and g 08/06/2019 Wren Shawn Final Z53. 09 Procedure and treatment not carried out because of other contraindication 08/27/2019 Wren Shawn Final E66. 01 Morbid (severe) obesity due to excess calories 08/27/2019 Wren Shawn Final F31. 9 Bipolar disorder, unspecified 08/27/2019 Wren Shawn Final G47. 33 Obstructive sleep apnea (adult) (pediatric) 08/27/2019 Wren Shawn Final I10 Essential (primary) hypertension 08/27/2019 Wren Shawn Final L23. 1 Allergic contact dermatitis due to adhesives 08/27/2019 Wren Shawn Final M 19.072 Primary osteoarthritis, left ankle and foot 08/27/2019 Wren Shawn Reason T84.098A Other mechanical complication of other i nternal joint prosthesis, initial e 08/27/2019 Wren Shawn Final Z23 Encounter for immunization 08/27/2019 Wren Shawn Final Z68. 42 Body mass index (BMI) 45.0-49.9, adult 08/27/2019 Wren Shawn Final Z 79.891 detention (current) use of opiate analgesic 08/27/2019 Wren Shawn Final Z 79.899 Other skilled nursing (current) drug therapy 08/27/2019 Wren Shawn Final Z 87.891 Personal history of nicotine dependence 08/27/2019 Siena,Andrés Final Z88. 5 Allergy status to narcotic agent status 08/27/2019 Siena,Andrés Final Z 91.010 Allergy to peanuts 08/27/2019 Siena,Andrés Final Z 91.040 Latex allergy status 08/27/2019 Siena,Andrés Final Z98. 1 Arthrodesis status 08/27/2019 Wren Shawn Final Z98. 51 Tubal ligation status Procedures Code Description Performed By Per formed On [id number] EX CISION OF BILATERAL FALLOPIAN TUBES, OPEN KATHRINE Sánchez MD, [facility] 03/17/2016 [id number] RE SECTION OF BILATERAL FALLOPIAN TUBES, OPEN JON Sánchez MD, [facility] 03/17/2016 [id number] EX TRACTION OF POC, LOW CERVICAL, OPEN APPROACH Gonzalo ARIAS, [facility] 03/17/2016 64066 Spir ometry, including graphic record, total and timed vital capacity, expiratory flow rate measureme MING ARIAS, [facility] 09/28/2016 74896 Plet hysmography for determination of lung volumes and, when performed, airway resistance MING ARIAS, [facility] 09/28/2016 59471 Diff using capacity (eg, carbon monoxide, membrane) (List separately in addition to code for claudia LAI MD, [facility] 09/28/2016 85525 Spir ometry, including graphic record, total and timed vital capacity, expiratory flow rate measureme MING ARIAS, [facility] 10/24/2016 41167 Plet hysmography for determination of lung volumes and, when performed, airway resistance MING ARIAS, [facility] 10/24/2016 48200 Diff using capacity (eg, carbon monoxide, membrane) (List separately in addition to code for claudia LAI MD, [facility] 10/24/2016 [id number] Fu esteban of Left Ankle Joint with Internal Fixation Device, Open Approach 10/08/2017 43908 XRAY -CHEST PALAT 2 VIEWS Dalila Sarah 06/25/2019 [id number] PEAK FLOW [facility] 06/25/2019 [id number] AERO CORNELL TREATMENT [facility] 06/25/2019 [id number] OFFI CE VISIT-RETURN ConnerElisa marrufovia 06/25/2019 [id number] BRON CHITIS ANTIBIOTIC THERAPY - MEDICAL [facility] 06/25/2019 [id number] ALBU TEROL INHALATION [facility] 06/25/2019 [id number] IPRA TROPIUM BROMIDE INH [facility] 06/25/2019 [id number] [facility] 06/25/2019 [id number] Arth rodesis, ankle, open 08/18/2019 Results Test Result Range GLUCOSE (POC) - 02/25/16 16:10 GLUCOSE (POC) 128 mg/dL 70-99 GLUCOSE (POC) - 02/25/16 20:01 GLUCOSE (POC) 99 mg/dL 70-99 CBC - 03/10/16 19:15 MEAN CELL HGB 29.0 pg 27.0-33.0 MEAN CELL HGB CONCENTRATION 32.9 g/dL 32 .0-37.0 MEAN CELL VOLUME 88.2 fl 80.0-100.0 RED BLOOD CELL 4.41 m/cumm 4.00-6.00 RED CELL DISTRIBUTION WIDTH 14.5 % 11 .0-15.6 WHITE BLOOD CELL 12.9 k/cumm 5.0-10.0 HEMOGLOBIN 12.8 gm/dL 12.0-16.0 HEMATOCRIT 38.9 % 37.0-47.0 PLATELET COUNT 228 k/cumm 150-400 THYROID STIM HORMONE (TSH) - 03/10/16 19 :15 THYROID STIM HORMONE (TSH) 2.27 uIU/mL 0 .34-4.82 GLUCOSE (POC) - 03/10/16 19:15 GLUCOSE (POC) 83 mg/dL 70-99 HEMOGLOBIN A1C - 03/10/16 19:15 HEMOGLOBIN A1C 6.3 % < 5.7 GLUCOSE (POC) - 03/10/16 23:22 GLUCOSE (POC) 90 mg/dL 70-99 GLUCOSE (POC) - 03/11/16 07:11 GLUCOSE (POC) 103 mg/dL 70-99 GLUCOSE (POC) - 03/11/16 10:09 GLUCOSE (POC) 160 mg/dL 70-99 GLUCOSE (POC) - 03/11/16 12:12 GLUCOSE (POC) 99 mg/dL 70-99 GLUCOSE (POC) - 03/11/16 14:34 GLUCOSE (POC) 99 mg/dL 70-99 GLUCOSE (POC) - 03/11/16 20:44 GLUCOSE (POC) 132 mg/dL 70-99 GLUCOSE (POC) - 03/12/16 06:04 GLUCOSE (POC) 106 mg/dL 70-99 CBC - 03/16/16 14:50 MEAN CELL HGB 28.9 pg 27.0-33.0 MEAN CELL HGB CONCENTRATION 32.0 g/dL 32 .0-37.0 MEAN CELL VOLUME 90.5 fl 80.0-100.0 RED BLOOD CELL 4.32 m/cumm 4.00-6.00 RED CELL DISTRIBUTION WIDTH 15.1 % 11 .0-15.6 WHITE BLOOD CELL 11.2 k/cumm 5.0-10.0 HEMOGLOBIN 12.5 gm/dL 12.0-16.0 HEMATOCRIT 39.1 % 37.0-47.0 PLATELET COUNT 250 k/cumm 150-400 GLUCOSE (POC) - 03/17/16 14:21 GLUCOSE (POC) 80 mg/dL 70-99 GLUCOSE (POC) - 03/17/16 17:10 GLUCOSE (POC) 96 mg/dL 70-99 HEMOGLOBIN - 03/17/16 20:48 MEAN CELL VOLUME 90.3 fl 80.0-100.0 HEMOGLOBIN 11.3 gm/dL 12.0-16.0 GLUCOSE (POC) - 03/17/16 21:56 GLUCOSE (POC) 156 mg/dL 70-99 GLUCOSE (POC) - 03/18/16 06:14 GLUCOSE (POC) 93 mg/dL 70-99 CREATININE - 03/18/16 10:19 EST GFR (MDRD) > 60 mL/min > 59 CREATININE 0.6 mg/dL 0.6-1.0 GLUCOSE (POC) - 03/18/16 22:36 GLUCOSE (POC) 104 mg/dL 70-99 GLUCOSE (POC) - 03/19/16 07:28 GLUCOSE (POC) 108 mg/dL 70-99 GLUCOSE (POC) - 03/19/16 21:03 GLUCOSE (POC) 132 mg/dL 70-99 CBC - 03/20/16 05:29 MEAN CELL HGB 28.8 pg 27.0-33.0 MEAN CELL HGB CONCENTRATION 31.9 g/dL 32 .0-37.0 MEAN CELL VOLUME 90.1 fl 80.0-100.0 RED BLOOD CELL 3.65 m/cumm 4.00-6.00 RED CELL DISTRIBUTION WIDTH 15.2 % 11 .0-15.6 WHITE BLOOD CELL 6.5 k/cumm 5.0-10.0 HEMOGLOBIN 10.5 gm/dL 12.0-16.0 HEMATOCRIT 32.9 % 37.0-47.0 PLATELET COUNT 213 k/cumm 150-400 GLUCOSE (POC) - 03/20/16 05:50 GLUCOSE (POC) 96 mg/dL 70-99 Helicobacter pylori Stool Antigen [id number] - 05/25/17 11:26 H. pylori Stool Ag, EIA Negative Negati ve Vitamin D, 25-Hydroxy 13774 - 10/03/17 1 2:55 Vitamin D, 25-Hydroxy 26.6 ng/mL 30.0-10 0.0 Lipid Panel [id number] - 10/03/17 12:55 Cholesterol, Total 169 mg/dL 100-199 Triglycerides 168 mg/dL 0-149 HDL Cholesterol 32 mg/dL >39 VLDL Cholesterol Dillon 34 mg/dL 5-40 LDL Cholesterol Calc 103 mg/dL 0-99 Comment: [employer] NRG Metabolic Panel (14), Comprehensive (CMP ) [id number] - 10/03/17 12:55 Glucose, Serum 88 mg/dL 65-99 BUN 9 mg/dL 6-20 Creatinine, Serum 0.80 mg/dL 0.57-1.00 eGFR If NonAfricn Am 95 mL/min/1.73 >59 eGFR If Africn Am 110 mL/min/1.73 >5 9 BUN/Creatinine Ratio 11 9-23 Sodium, Serum 145 mmol/L 134-144 Potassium, Serum 4.0 mmol/L 3.5-5.2 Chloride, Serum 103 mmol/L 96-106 Carbon Dioxide, Total 23 mmol/L 18-29 Calcium, Serum 9.5 mg/dL 8.7-10.2 Protein, Total, Serum 6.8 g/dL 6.0-8.5 Albumin, Serum 4.4 g/dL 3.5-5.5 Globulin, Total 2.4 g/dL 1.5-4.5 A/G Ratio 1.8 1.2-2.2 Bilirubin, Total 0.2 mg/dL 0.0-1.2 Alkaline Phosphatase, S 98 IU/L 39-117 AST (SGOT) 20 IU/L 0-40 ALT (SGPT) 27 IU/L 0-32 Anaerobic and Aerobic Culture - 10/05/17 10:27 Anaerobic Culture Final report NRG Aerobic Culture Final report NRG Result 1 NRG Result 1 Staphylococcus aureus NRG Antimicrobial Susceptibility N RG Glucose NPT - 10/08/17 07:41 Glucose NPT 101 mg/dL 70-100 CBC With Platelet No Differential - 09/24 02/08 08:15 HCT 44.0 % 37.0-47.0 HGB 13.9 g/dL 12.0-16.0 MCH 27.9 pg 27.0-32.0 MCHC 31.6 g/dL 32.0-36.0 MCV 88.2 fL 82.0-99.0 MPV 9.0 fL 9.4-12.4 Platelet Count 297 K/uL 150-400 RBC 4.99 10*6/uL 4.00-5.20 RDW 15.0 % 11.5-14.5 WBC 11.5 K/uL 4.8-10.8 Basic Metabolic Panel (BMP) - 10/08/17 0 8:15 Anion Gap 9 mEq/L 3-20 BUN 8 mg/dL 4-20 Calcium 9.2 mg/dL 8.6-10.0 Chloride 108 mEq/L 99-109 CO2 24 mEq/L 22-32 Creatinine 0.67 mg/dL 0.44-1.03 Glucose 105 mg/dL 70-100 Potassium 3.7 mEq/L 3.6-5.1 Sodium 141 mEq/L 136-144 eGFR - 10/08/17 08:15 eGFR >60 mL/min >60 Screen, Urine NPT - 10/08/17 0 8:20 Screen, Urine NPT Negative NA Glucose NPT - 10/08/17 10:15 Glucose NPT 94 mg/dL 70-100 Glucose NPT - 10/08/17 21:51 Glucose NPT 109 mg/dL 70-100 Screen, Urine - 10/08/17 23:10 Screen, Urine Negative NA Glucose NPT - 10/09/17 05:46 Glucose NPT 127 mg/dL 70-100 CBC With Platelet No Differential - 09/24 03/11 08:11 HCT 40.7 % 37.0-47.0 HGB 12.9 g/dL 12.0-16.0 MCH 27.7 pg 27.0-32.0 MCHC 31.7 g/dL 32.0-36.0 MCV 87.5 fL 82.0-99.0 MPV 9.2 fL 9.4-12.4 Platelet Count 294 K/uL 150-400 RBC 4.65 10*6/uL 4.00-5.20 RDW 15.0 % 11.5-14.5 WBC 14.5 K/uL 4.8-10.8 Basic Metabolic Panel (BMP) - 10/09/17 0 8:11 Anion Gap 10 mEq/L 3-20 BUN 5 mg/dL 4-20 Calcium 8.9 mg/dL 8.6-10.0 Chloride 103 mEq/L 99-109 CO2 24 mEq/L 22-32 Creatinine 0.55 mg/dL 0.44-1.03 Glucose 118 mg/dL 70-100 Potassium 3.4 mEq/L 3.6-5.1 Sodium 137 mEq/L 136-144 eGFR - 10/09/17 08:11 eGFR >60 mL/min >60 Glucose NPT - 10/09/17 09:08 Glucose NPT 110 mg/dL 70-100 Glucose NPT - 10/09/17 17:39 Glucose NPT 106 mg/dL 70-100 Glucose NPT - 10/09/17 21:47 Glucose NPT 120 mg/dL 70-100 Glucose NPT - 10/10/17 05:54 Glucose NPT 117 mg/dL 70-100 CBC With Platelet No Differential - 09/24 04/10 08:15 HCT 39.3 % 37.0-47.0 HGB 12.1 g/dL 12.0-16.0 MCH 27.6 pg 27.0-32.0 MCHC 30.8 g/dL 32.0-36.0 MCV 89.7 fL 82.0-99.0 MPV 8.8 fL 9.4-12.4 Platelet Count 256 K/uL 150-400 RBC 4.38 10*6/uL 4.00-5.20 RDW 14.8 % 11.5-14.5 WBC 12.9 K/uL 4.8-10.8 Basic Metabolic Panel (BMP) - 10/10/17 0 8:15 Anion Gap 9 mEq/L 3-20 BUN 6 mg/dL 4-20 Calcium 9.0 mg/dL 8.6-10.0 Chloride 102 mEq/L 99-109 CO2 27 mEq/L 22-32 Creatinine 0.55 mg/dL 0.44-1.03 Glucose 136 mg/dL 70-100 Potassium 3.9 mEq/L 3.6-5.1 Sodium 138 mEq/L 136-144 eGFR - 10/10/17 08:15 eGFR >60 mL/min >60 Hepatic Function Panel - 10/10/17 08:15 Albumin 3.1 g/dL 3.5-4.8 Alkaline Phosphatase 71 U/L 26-104 ALT (SGPT) 15 U/L 14-54 AST (SGOT) 17 U/L 15-41 Bilirubin Direct 0.2 mg/dL 0.0-0.2 Bilirubin Indirect 0.5 mg/dL 0.0-1.0 Bilirubin Total 0.7 mg/dL 0.2-1.2 Protein 6.4 g/dL 6.1-7.9 Glucose NPT - 10/10/17 11:39 Glucose NPT 127 mg/dL 70-100 Glucose NPT - 10/10/17 17:24 Glucose NPT 107 mg/dL 70-100 Glucose NPT - 10/10/17 21:21 Glucose NPT 105 mg/dL 70-100 Glucose NPT - 10/11/17 05:58 Glucose NPT 110 mg/dL 70-100 CBC With Platelet No Differential - 09/24 05/11 07:44 HCT 39.0 % 37.0-47.0 HGB 12.3 g/dL 12.0-16.0 MCH 28.1 pg 27.0-32.0 MCHC 31.5 g/dL 32.0-36.0 MCV 89.0 fL 82.0-99.0 MPV 8.7 fL 9.4-12.4 Platelet Count 291 K/uL 150-400 RBC 4.38 10*6/uL 4.00-5.20 RDW 14.3 % 11.5-14.5 WBC 13.0 K/uL 4.8-10.8 Human Chorionic (hCG), Beta Subunit,Qual ,Serum - 10/22/17 12:02 hCG,Beta Subunit,Qual,Serum Negative mIU/mL Negative <6 CBC With Platelet and Differential - 22:38 Absolute Basophils 0.10 10*3/uL 0.00-0.2 0 Absolute Eosinophils 0.35 10*3/uL 0.00-0 .50 Absolute Lymphocytes 4.87 10*3/uL 0.80-3 .30 Absolute Monocytes 0.91 10*3/uL 0.30-1.0 0 Absolute Neutrophils 10.23 10*3/uL 1.90- 7.00 Basophils 1 % 0-2 Eosinophils 2 % 0-4 HCT 41.5 % 37.0-47.0 HGB 13.1 g/dL 12.0-16.0 Immature Granulocytes 0.1 % 0.0-1.0 Lymphocytes 30 % 20-46 MCH 27.3 pg 27.0-32.0 MCHC 31.6 g/dL 32.0-36.0 MCV 86.6 fL 82.0-99.0 Monocytes 6 % 4-11 MPV 8.6 fL 9.4-12.4 Neutrophils 62 % 51-75 Platelet Count 333 K/uL 150-400 RBC 4.79 10*6/uL 4.00-5.20 RDW 14.1 % 11.5-14.5 WBC 16.5 K/uL 4.8-10.8 Basic Metabolic Panel (BMP) - 01/10/18 2 2:38 Anion Gap 9 mEq/L 3-20 BUN 10 mg/dL 4-20 Calcium 9.0 mg/dL 8.6-10.0 Chloride 101 mEq/L 99-109 CO2 27 mEq/L 22-32 Creatinine 0.76 mg/dL 0.44-1.03 Glucose 126 mg/dL 70-100 Potassium 3.6 mEq/L 3.6-5.1 Sodium 137 mEq/L 136-144 Troponin - 01/10/18 22:38 Troponin <0.05 ng/mL <0.06 eGFR - 01/10/18 22:38 eGFR >60 mL/min >60 Stool Culture [id number] - 03/01/18 13:48 Salmonella/Shigella Screen Final report NRG Campylobacter Culture Final report NRG E coli Shiga Toxin EIA Negative Negativ e Result 1 NRG Result 1 NR Vitamin D, 25-Hydroxy 80085 - 06/24/18 1 5:06 Vitamin D, 25-Hydroxy 17.6 ng/mL 30.0-10 0.0 Lipid Panel 25803 - 06/24/18 15:06 Cholesterol, Total 213 mg/dL 100-199 Triglycerides 264 mg/dL 0-149 HDL Cholesterol 40 mg/dL >39 VLDL Cholesterol Dillon 53 mg/dL 5-40 LDL Cholesterol Calc 120 mg/dL 0-99 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 . NRG Note: NRG . NRG Wet Prep w/ Reflex to Trichomonas Cultur e [id number] - 07/30/18 16:40 Trichomonas Exam Negative Negative Yeast Exam Negative Negative Clue Cell Exam Negative Negative Trichomonas Culture Final report NRG Result 1 NRG Chlamydia / Gonorrhea (GC), ANGELA 35215 87 591 - 07/30/18 16:40 Chlamydia trachomatis, ANGELA Negative Neg ative Neisseria gonorrhoeae, ANGELA Negative Neg ative Thyroid-Stimulating Hormone (TSH) and Fr ee T4 77246/50021 - 05/15/19 10:56 TSH 2.08 uIU/mL 0.34-4.82 T4,Free(Direct) 0.8 ng/dL 0.8-1.8 Metabolic Panel (14), Comprehensive (CMP ) 80895 - 05/15/19 10:56 Glucose, Serum 76 mg/dL 70-99 BUN 9 mg/dL 7-20 Creatinine, Serum 0.70 mg/dL 0.60-1.00 eGFR If NonAfricn Am 110 mL/min > 59 eGFR If Africn Am 127 mL/min > 59 BUN/Creatinine Ratio 13 9-20 Sodium, Serum 142 mmol/L 135-148 Potassium, Serum 4.1 mmol/L 3.5-5.3 Chloride, Serum 105 mmol/L 98-110 Carbon Dioxide, Total 29 mmol/L 21-32 Calcium, Serum 8.6 mg/dL 8.5-10.1 Protein, Total, Serum 6.7 gm/dL 6.4-8.2 Albumin, Serum 3.3 gm/dL 3.4-5.0 Bilirubin, Total 0.3 mg/dL 0.0-1.0 Alkaline Phosphatase, S 96 IU/L 45-117 AST (SGOT) 22 Units/L 10-37 ALT (SGPT) 29 Units/L < 66 Complete Blood Count (CBC) w/ Differenti al 00072 - 07/24/19 08:18 WBC 10.2 k/cumm 5.0-10.0 RBC 5.01 m/cumm 4.00-6.00 Hemoglobin 13.5 gm/dL 12.0-16.0 Hematocrit 44.5 % 37.0-47.0 MCV 88.8 fl 80.0-100.0 MCH 26.9 pg 27.0-33.0 MCHC 30.3 g/dL 32.0-37.0 RDW 14.8 % 11.0-15.6 Platelets 269 k/cumm 150-400 Neutrophils 60.6 % 50-75 Lymphs 28.0 % 20-30 Monocytes 6.0 % 4-6 Eos 4.0 % 2-4 Basos 1.1 % 0-1 Neutrophils (Absolute) 6.2 k/cumm 2.0-9. 0 Lymphs (Absolute) 2.9 k/cumm 1.0-4.0 Monocytes(Absolute) 0.6 k/cumm 0.1-1.0 Eos (Absolute) 0.4 k/cumm 0.1-0.5 Baso (Absolute) 0.1 k/cumm 0.0-0.2 Immature Granulocytes 0.3 % 0.0-0.6 Immature Grans (Abs) 0.03 k/cumm 0.00-0. 09 NRBC 0.0 /100 WBC 0.0-0.0 Metabolic Panel (8), Basic (BMP) 06307 - 07/24/19 08:18 Glucose, Serum 107 mg/dL 70-99 BUN 10 mg/dL 7-20 Creatinine, Serum 0.80 mg/dL 0.60-1.00 eGFR If NonAfricn Am 94 mL/min > 59 eGFR If Africn Am 108 mL/min > 59 BUN/Creatinine Ratio 13 9-20 Sodium, Serum 142 mmol/L 135-148 Potassium, Serum 4.6 mmol/L 3.5-5.3 Chloride, Serum 106 mmol/L 98-110 Carbon Dioxide, Total 32 mmol/L 21-32 Calcium, Serum 8.8 mg/dL 8.5-10.1 Chem 8 NPT - 12/29/19 01:42 Anion Gap 8 mEq/L 3-20 BUN Venous 4 mg/dl 4-20 Glucose Venous 125 mg/dL 70-100 Potassium, WB 3.7 mEq/L 3.6-5.1 Sodium Venous 138 mEq/L 136-144 Total CO2 Venous 26 mEq/L 25-29 Venous CL 104 mEq/L 99-109 HCT Venous 47.0 % 37.0-47.0 HGB Venous NPT 16.0 g/dL 12.0-16.0 Radiology Report from [facility] on 016 22:43:00 DIAGNOSTIC HUGO GING REPORT [facility] - [address] [place] [address] PHONE #: [phone] FAX #: [phone] Name: ALBER ROGER SONIA Loc: W.2WOBED Radiology No: : 1980 Age: 35 Sex: F Status: DEP ER Unit No: [id number] Phys: Shannon Fox MD Acct: [id number] Reason For Exam: no PNC, GDM Exam Date: 02/25/2016 EXAMS: CPT CODE: [id number] PREG >1ST TRIMESTER 79698 REASON FOR EXAM: no PNC, GDM TIME OF EXAM: 02/25/2016 7:18 PM COMPARISON: None TECHNIQUE: High resolution grayscale and color-flow transabdominal ultrasound was performed. CLINICAL DATES: 36 weeks 0 days, GILMA: 03/24/2016 Number: single live intrauterine Presentation: cephalic Placenta: anterior Cardiac activity: 152 bpm Amniotic Fluid Index: 21 cm, Largest Vertical Fluid Pocket: 8.6 cm BPD: 9.5 cm - 38 weeks 5 days HC: 39.3 cm - 39 weeks 4 days AC: 34 cm - 37 weeks 5 days FL: 6.9 cm - 35 weeks 2 days EGA from current exam: 37 weeks 6 days gestation GILMA from current exam: 03/11/2016 EFW: 3222 +/- 483 g, 87th percentile according to clinical dates FINDINGS: The anatomic survey appears grossly unremarkable. The following structures were or were not adequately visualized for diagnosis. Lateral ventricles: visualized Cavum septum pellucidum: visualized Cerebellum: visualized Three vessel cord: visualized Cord insertion: Not well visualized Nasal Bone: visualized Lips and nostrils: visualized Spine: Not well visualized 4 chamber heart: visualized Aortic arch: Not well visualized Outflow tracts: Not well visualized PAGE 1 Signed Report (CONTINUED) DIAGNOSTIC IMAGING REPORT [facility] - [address] [place] [address] PHONE #: [phone] FAX #: [phone] Name: ALBER ROGER SONAI Loc: W.2WOBED Radiology No: : 1980 Age: 35 Sex: F Status: DEP ER Unit No: [id number] Phys: Shannon Fox MD Acct: [id number] Reason For Exam: aryan for Exam: no PNC, GDM Exam Date: 02/25/2016 --------- EXAMS: CPT CODE: [id number] PREG >1ST TRIMESTER 32281 <Continued> Diaphragm: visualized Lower extremities: Not well visualized Feet: Not well visualized Upper extremities: Not well visua lized Hands: Not well visualized Stomach: visualized Bladder: visualized Kidneys: visualized Genitalia: Female IMPRESSION: 1. Single live intrauterine at approximately 37 weeks 6 days with an GILMA of 03/11/2016. These are within range of clinical dates. 2. The spine, aortic arch, outflow tracts, upper and lower extremities and cord insertion are not well visualized due to position otherwise, visualization of anatomic structures is described above. No gross abnormality was appreciated. Exam discussed with Dr. Lentz at 02/25/2016 8 PM. I have personally reviewed these images and corrected the resident physician's interpretation if necessary. at 9800 RESIDENT: JOSEY ROBINS MD Reported and signed by: GENESIS ANTHONY JR., MD CC: Prashant Condon MD Technologist: VIN LEAL Transcribed Date/Time: 02/25/2016 (0710)Sterile Proc Tech: PAT Printed Date/Time: 02/25/2016 (1861) BATCH NO: N/A PAGE 2 Signed Report Radiology Report from [facility] on 016 16:57:00 DIAGNOSTIC HUGO GING REPORT [place] [address] PHONE #: [phone] FAX #: [phone] Name: ALBER ROGER Loc: PRE Radiology No: : 1980 Age: 35 Sex: F Status: PRE CLI Unit No: [id number] Phys: Esther Garcia MD R Acct: [id number] Reason For Exam: GDM Exam Date: 03/07/2016 EXAMS: CPT CODE: [id number] SONO BIOPH PROFILE- 38336 REASON FOR EXAM: GDM TIME OF CURRENT STUDY: 03/07/2016 3:34 PM COMPARISON: 02/25/2016 TECHNIQUE: Transabdominal sonographic Biophysical profile scoring is performed with real-time observation of the fetus for gross body movement, breathing and tone. GESTATIONAL AGE: 37 weeks 4 days Biophysical Profile Score: Movement: 2 Breathin Tone: 2 Fluid: 2 Total: 05/01 Heart Rate: 137 BPM Presentation is cephalic. Placenta is anterior, not low-lying. ALANA is a 27.3cm. The single largest vertical pocket is 10.4 cm. IMPRESSION: 1. Normal Biophysical Profile Score. 2. Generous amniotic fluid volume. Current ALANA is 27.3 cm. Previously the ALANA was 21 cm. at 1651 Reported and signed by: JEANE QUISPE MD CC: Prashant Condon MD Technologist: CHRISTIANO VAUGHN Transcribed Date/Time: 03/07/2016 (165)Sterile Proc Tech: ANA M Printed Date/Time: 03/07/2016 (0622) BATCH NO: N/A PAGE 1 Signed Report Radiology Report from [id number] on 10/03 12:10:00 Reason For ExamRUQ painREPORTPROCEDURE: Ultrasound abdomen, limited.TECHNIQUE: Multiple real-time grayscale images were obtained over the rightupper quadrant in various projections.INDICATION: Right upper quadrant pain.COMPARISON: None available.FINDINGS: Mildly increased echogenicity and poor acoustic transmission is notedwithin the liver without focal hepatic mass.The gallbladder is unremarkable.The common bile duct is within normal limits measuring 0.4 cm.Visualized portions of the pancreas are unremarkable.The right kidney is unremarkable.No significant free fluid.Negative sonographic Sherman sig n.IMPRESSION: Mild fatty infiltration of the liver. Otherwise, unremarkable.Dictated on workstation:[id number] Line PRELIMINARY DICTATED BY: HOLLIS JOSEPH MDDICTATED DT/TM: 10/03/2017 12:04 Radiology Report from [id number] on 10/09 07:34:00 Reason For ExamORIF LEFT ANKLE- SF SURGR EPORTINDICATION: ORIF left ankle.IMPRESSION:Fluoroscopy was utilized for [address] Wren in [place].Tech Comments: Fluoroscopy time (in minutes): .66 MINDictated on workstation:[id number] Line PRELIMINARY DICTATED BY: CONTRIBUTOR_SYSTEM, PSCRIBEDICTATED DT/TM: 10/09/2017 7:33 Radiology Report from [id number] on 10/08 13:20:00 Reason For ExamORIF LEFT ANKLE - SF SURG REPORTINDICATION: ORIF of left ankle.FINDINGS: There is anterior plate along the tibia and talus with fusion of thetalotibial joint. Bone screws appear intact. There is a cannulated bone screwalso extending laterally to medially through the talus and into the tibia.IMPRESSION: ORIF with fusion of the talotibial joint.Dictated on workstation:[id number] Line PRELIMINARY DICTATED BY: NUPUR MAYO MDDICTATED DT/TM: 10/08/2017 12:25 Radiology Report from [id number] on 01/11 06:41:00 Reason For ExamChest painREPORTINDICATIO N: Chest pain. Pain radiating posterior through the left shoulder x2days.TECHNIQUE: Two view chest 12:10 AMCORRELATION STUDY: NoneFINDINGS:The heart size, mediastinal configuration and pulmonary vasculature are withinnormal limits. The lungs are clear with no consolidating infiltrate. There isno significant pleural effusion or pneumothorax. Visualized osseous structuresare unremarkable.IMPRESSION:1. No radiographic evidence for acute abnormality of the chest.Dictated on workstation:[id number] Line FINAL DICTATED BY: ANGIE CAMARGO DODICTATED DT/TM: 01/11/2018 6:38 AMSIGNED BY: ANGIE CAMARGO DOSIGNED (ELECTRONIC SIGNATURE): 01/11/2018 6:38 AMTECHNOLOGIST: RENETTA FONTANEZ RT(R)(M) Radiology Report from [id number] on 08/06 15:35:00 Reason For ExamDysmenorrheaREPORTPROCEDU RE: Pelvic comp/transvaginal sonogram.TECHNIQUE: Multiple real-time grayscale images were obtained of the pelvis invarious projections endovaginally.INDICATION: Dysmenorrhea. History of three prior C-sections.EXAMINATION: Ultrasound transvaginal and transpelvic 08/06/2018.FINDINGS:The uterus is a 9.9 cm in greatest dimension with the endometrial stripethickened measuring 1.25 cm. Nabothian cyst seen at the cervix.Right ovary is 3 cm in greatest dimension and the left is 4 cm. Complexappearing cystic region in the left ovary measures 2.0 x 1.9 x 1.6 cm in size.This could be a complex dominant follicle or cystic lesion. Internal hemorrhagiccomponents are possible. Followup recommended in 2-3 menstrual cycles to assureresolution.No free fluid is seenIMPRESSION:1. Findings involving the left ovary likely a complex cyst. However otherlesions not excluded at this time and a short-term interval followup recommendedas noted above.2. Thickened endometrial canal which could be due to timing in menstrual cycle,clinically correlate.Dictated on workstation:[id number] Line PRELIMINARY DICTATED BY: DIVINA VILLEAD MDDICTATED DT/TM: 08/06/2018 3:14 Radiology Report from [id number] on 08/18 12:54:00 Reason For ExamOR3 Hardware removal/subt alar ankle fusionREPORTINDICATION: ORIF of the left ankleIMPRESSION: 104 seconds of fluoroscopy was used for ORIF of the right ankle. 6images were obtained which shows satisfactory fixation and alignment.Dictated on workstation:[id number] Line PRELIMINARY DICTATED BY: KAYLA SANCHEZ MDDICTATED DT/TM: 08/18/2019 12:44 Radiology Report from [id number] on 08/20 23:16:00 Reason For ExamOR3 Hardware removal/subt alar ankle fusionREPORTIMPRESSION: Fluoroscopy was utilized by Dr. Wren. In: 0743 Out: 0927.Tech Comments: Fluoroscopy time (in minutes): 1.73# of Fluoro Images Acquired 6Dictated on workstation:[id number] Line PRELIMINARY DICTATED BY: CONTRIBUTOR_SYSTEM, PSCRIBEDICTATED DT/TM: 08/20/2019 11:14 Encounters ACCT No. Visit Date/Time Discharge Status Pt. Type Provider Facility Loc./Unit Complaint [id number] 08/18/2019 05:14:00 11:00:00 [facility] Primary osteoarthrit is, left ankle and foot, Breakdown ([facility] [id number] 07/31/2019 05:56:00 08:05:00 DIS Outpatient Wren [facility] on [facility] F3E Primary osteoarthrit is, left ankle and foot - Left revision [id number] 08/06/2018 13:09:00 23:59:00 DIS Outpatient Donohue [facility] Ultrasound Dysmenorrhea [id number] 01/10/2018 21:20:00 018 01:47:00 DIS Emergency [facility] ED chest pain [id number] 11/18/2017 14:34:00 018 15:46:00 DIS Emergency [facility] ED wants cast removed [id number] 11/13/2017 15:24:00 018 16:33:00 DIS Emergency [facility] ED wet cast, pt wants it remove d [id number] 10/03/2017 11:04:00 018 23:59:00 [facility] RUQ pain [id number] 08/31/2016 07:46:00 016 23:59:00 DIS Outpatient [facility] Pulm Func Cough [id number] 12/29/2019 00:07:[address] Inpatient KhouryAngélica Askew L[facility] on [address] [facility] J7W depression, SI [id number] 08/21/2019 05:21:50 Document Registration [id number] 08/20/2019 05:22:50 Document Registration [id number] 08/19/2019 05:23:17 Document Registration [id number] 08/16/2019 05:22:57 Document Registration [id number] 08/01/2019 05:22:31 Document Registration [id number] 01/11/2018 05:18:47 Document Registration [id number] 10/12/2017 05:18:21 Document Registration [id number] 10/11/2017 05:19:28 Document Registration [id number] 10/10/2017 05:19:24 Document Registration [id number] 10/09/2017 05:20:07 Document Registration [id number] 10/08/2017 07:15:00 Document Registration [id number] 07/27/2016 10:21:55 07/27/2016 10:21:55 DIS Outpatient [id number] 07/27/2016 10:18:32 07/27/2016 10:18:34 DIS Outpatient [id number] 06/29/2016 09:56:44 06/29/2016 23:59:59 CLS Outpatient [id number] 06/29/2016 09:49:56 06/29/2016 23:59:59 CLS Outpatient [id number] 06/29/2016 09:49:17 06/29/2016 23:59:59 CLS Outpatient [id number] 06/29/2016 09:48:54 06/29/2016 23:59:59 CLS Outpatient [id number] 06/29/2016 09:48:52 06/29/2016 23:59:59 CLS Outpatient [id number] 06/29/2016 09:48:51 06/29/2016 23:59:59 CLS Outpatient [id number] 06/29/2016 09:40:33 06/29/2016 23:59:59 CLS Outpatient [id number] 06/29/2016 09:40:14 06/29/2016 23:59:59 CLS Outpatient [id number] 06/29/2016 09:40:02 06/29/2016 23:59:59 CLS Outpatient [id number] 06/29/2016 09:40:01 06/29/2016 23:59:59 CLS Outpatient [id number] 06/29/2016 09:40:00 06/29/2016 23:59:59 CLS Outpatient [id number] 06/29/2016 07:06:50 06/29/2016 07:06:50 ACT Outpatient [id number] 06/29/2016 07:06:47 06/29/2016 07:06:47 ACT Outpatient [id number] 06/29/2016 07:06:46 06/29/2016 07:06:46 ACT Outpatient [id number] 06/29/2016 07:04:37 06/29/2016 07:04:37 ACT Outpatient [id number] 06/29/2016 07:04:33 06/29/2016 07:04:33 ACT Outpatient [id number] 06/29/2016 07:04:32 06/29/2016 07:04:32 ACT Outpatient [id number] 06/26/2016 09:19:00 Document Registration [id number] 03/21/2016 09:00:00 016 23:59:59 CLS Preadmit [place] ARIAS [facility] U [id number] 03/17/2016 13:14:00 016 12:13:00 DIS Inpatient [place] RAIAS, [facility] WJesus5WH [id number] 03/14/2016 07:48:00 016 07:48:00 DIS Outpatient [place] ARIAS, [facility] U [id number] 03/10/2016 17:50:00 016 16:00:00 DIS Inpatient [place] ARIAS, [facility] W.4WH [id number] 03/07/2016 15:00:00 016 23:59:59 CLS Outpatient [place] ARIAS [facility] WJesusWRAU [id number] 02/25/2016 14:23:00 016 20:29:00 DIS Emergency [place] ARIAS, [facility] W.2WOBED [id number] 09/28/2016 11:11:00 09/28/2016 23:59 :59 CLS Outpatient [id number] 07/24/2019 08:10:00 07/24/2019 23:59: 59 CLS Outpatient KayyFelisha Lowery [facility] [id number] 07/24/2019 08:10:00 Document Registration [id number] 05/15/2019 09:40:00 Document Registration [id number] 07/30/2018 15:40:00 Document Registration [id number] 06/24/2018 14:00:00 Document Registration [id number] 03/01/2018 13:30:00 Document Registration [id number] 10/22/2017 11:00:00 Document Registration [id number] 10/05/2017 09:00:00 Document Registration [id number] 10/03/2017 12:50:00 Document Registration [id number] 05/25/2017 10:25:00 Document Registration [id number] 06/25/2019 10:20:00 06/25/2019 23:5 9:59 CLS Outpatient Sarah Conner
[2020-03-15 21:41] LABS: AMPHETAMINE SCREEN, URINE NEGATIVE (NEGATIVE); BARBITURATE SCREEN URINE NEGATIVE (NEGATIVE); BENZODIAZEPINES SCREEN URINE NEGATIVE (NEGATIVE); CANNABINOID SCREEN, URINE POSITIVE (NEGATIVE); COCAINE SCREEN URINE NEGATIVE (NEGATIVE); METHADONE STAT NEGATIVE (NEGATIVE); METHAMPHETAMINE SCREEN URINE S NEGATIVE (NEGATIVE); OPIATE SCREEN URINE NEGATIVE (NEGATIVE); OXYCODONE STAT NEGATIVE (NEGATIVE); PROPOXYPHENE STAT NEGATIVE (NEGATIVE); TRICYCLIC ANTIDEPRESSANTS SCRE NEGATIVE (NEGATIVE)
[2020-03-15] MEDS ORDERED: CYCL10TA9 PO (22:07)
[2020-03-15] MEDS ORDERED: NAPR-1071 PO (22:07)
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
--- NOTE | 2020-03-15 22:10 | Diagnostic Imaging Report ---
INDICATION: Pain for last 2-1/2 weeks. EXAMINATION: Right humerus dated 03/15/2020 2 views of the humerus FINDINGS: There is no evidence for an acute fracture or dislocation. The joint spaces are well maintained. There is no significant soft tissue swelling. IMPRESSION: No acute process. Dictated by: Dictated on workstation # [id number]
--- NOTE | 2020-03-15 22:14 | Diagnostic Imaging Report ---
INDICATION: Pain EXAMINATION: Right hand dated 03/15/2020 3 views of the hand FINDINGS: There is no evidence for an acute fracture or dislocation. The joint spaces are well maintained. There is no significant soft tissue swelling. IMPRESSION: 1. No acute process. 2. There is a well-circumscribed peripherally sclerotic centrally lucent lesion within the distal 3rd metacarpal not mentioned above, nonspecific but fairly benign in appearance. Dictated by: Dictated on workstation # [id number]
[2020-03-15 22:16] VITALS: BP 133/78
--- NOTE | 2020-03-16 07:39 | Diagnostic Imaging Report ---
Clinical indication: Patient with right shoulder pain for 2.5 weeks. Patient has tingling feelings from shoulder to fingers. EXAM: X-ray of the cervical spine, AP and lateral views and open-mouth views. COMPARISON: None. FINDINGS: Of note, C7 vertebra is partially obscured. There is no acute cervical spine fracture or dislocation. There is mildly hypertrophic anterior spurs involving the C3-C6 levels. There is mild loss of disc space height at the C4-C5, C5-C6, and C6-C7 levels. There is mild facet arthropathy of the mid to lower cervical spine. There is no prevertebral soft tissue swelling. The odontoid shows no significant abnormality. IMPRESSION: 1.: There is cervical spine degenerative disease with no acute fracture or dislocation. Dictated by: Dictated on workstation # [id number]
--- NOTE | 2020-03-16 08:07 | Diagnostic Imaging Report ---
Clinical indication: Patient with right shoulder pain x2.5 weeks. Patient reports tingling feelings from shoulder to finger. EXAM: X-ray of the right forearm, 2 views. COMPARISON: None. FINDINGS: There is no acute fracture or dislocation. There is no elbow effusion. Visualized portions of the wrist shows no significant abnormality. IMPRESSION: 1. There is no acute fracture or dislocation. Dictated by: Dictated on workstation # [id number]
== END 2020-03-15 22:16 | disposition home or self-care (01) ==
LOC: EDUNIT# 20:42 → ER 20:44
DX: M79.601 Pain in right arm (principal); M54.2 Cervicalgia; F17.210 Nicotine dependence, cigarettes, uncomplicated
CPT/HCPCS: 72040; 73060; 73090; 73130; 80306; 84703

== ENCOUNTER → 2020-06-14 | Outpatient (CLI) | payer MEDICARE, MEDICAID ==
[~2020-06-14] MED LIST: CYCL10TA9 PO; NAPR-1071 PO
== END ==
LOC: WOUNDCARE 09:59
PROVIDERS: ATTEND Surgery
DX: I96 Gangrene, not elsewhere classified (principal); L98.492 Non-pressure chronic ulcer of skin of other sites with fat layer exposed; L02.211 Cutaneous abscess of abdominal wall; E66.01 Morbid (severe) obesity due to excess calories; Z68.41 Body mass index [BMI] 40.0-44.9, adult
CPT/HCPCS: 11042; G0463

== ENCOUNTER → 2020-06-21 | Outpatient (CLI) | payer MEDICARE, MEDICAID | LOC: WOUNDCARE 10:21 | PROVIDERS: ATTEND Surgery | DX: L98.492 Non-pressure chronic ulcer of skin of other sites with fat layer exposed (principal); L02.211 Cutaneous abscess of abdominal wall; E66.01 Morbid (severe) obesity due to excess calories; I96 Gangrene, not elsewhere classified | CPT/HCPCS: 11042; G0463 ==

== ENCOUNTER → 2020-06-28 | Outpatient (CLI) | payer MEDICARE, MEDICAID ==
[~2020-06-28] MED LIST changes: +DOCU100T7 PO; +MELO15TA39 PO; +MULT-1136 PO; +OMG1KC PO; +TRM50T PO
== END ==
LOC: WOUNDCARE 10:30
PROVIDERS: ATTEND Surgery
DX: L98.492 Non-pressure chronic ulcer of skin of other sites with fat layer exposed (principal); L02.211 Cutaneous abscess of abdominal wall; E66.01 Morbid (severe) obesity due to excess calories; I96 Gangrene, not elsewhere classified
CPT/HCPCS: 11042; G0463

== ENCOUNTER 2020-07-01 05:37 | Outpatient (RCR) | payer MEDICARE, MEDICAID ==
[~2020-07-01] VITALS: Ht 180.3 cm; Wt 142.7 kg
== END 2020-07-01 09:52 | disposition home or self-care (01) ==
LOC: PREOP 05:37
PROVIDERS: ATTEND Surgery
DX: Z01.818 Encounter for other preprocedural examination (principal); Z01.812 Encounter for preprocedural laboratory examination; K21.9 Gastro-esophageal reflux disease without esophagitis; K62.5 Hemorrhage of anus and rectum; Z20.828 Contact with and (suspected) exposure to other viral communicable diseases
CPT/HCPCS: 87635

== ENCOUNTER 2020-07-05 08:46 | Day surgery (SDC) | payer MEDICARE, MEDICAID ==
[2020-07-05] VITALS (8 sets, daily range): BP systolic 91–145; BP diastolic 54–84
[~2020-07-05] VITALS: Ht 180 cm; Wt 142.0 kg
[~2020-07-05 08:46] MED LIST changes: +LACTATED RINGERS 1,000 ML IV ONE
[2020-07-05] MEDS ORDERED: LACTATED RINGERS 1,000 ML IV STA (08:47)
[2020-07-05] MEDS ORDERED: MIDAZOLAM 2 MG/2 ML (VERSED) VIAL ONE (08:58)
[2020-07-05] MEDS ORDERED: PROPOFOL INJECTION 50 ML IV ONE ×2 (08:58→09:19)
[2020-07-05] MEDS ORDERED: HURRICAINE EXT TUBE (BENZOCAINE) XX PRN (09:00)
--- NOTE | 2020-07-05 09:03 | Progress Note-Pre Operative ---
Pre-Operative Progress Note H&P Reviewed The H&P was reviewed, patient examined and no changes noted. Time Seen by Provider: 09:01 Date H&P Reviewed: Jul 05, 2020 Time H&P Reviewed: 09:01 Pre-Operative Diagnosis: GERD, Rectal Bleed NUPUR LONG DO Jul 05, 2020 09:03
--- NOTE | 2020-07-05 09:50 | Progress Note-Post Operative ---
Post-Operative Progess Note Surgeon (s)/Federal Law Clerk (s) Surgeon NUPUR LONG DO Federal Law Clerk: MAGALIE Dawkins Pre-Operative Diagnosis GERD, Rectal Bleed Post-Operative Diagnosis Esophagitis Gastritis Int and ext hemorrhoids Procedure & Operative Findings Date of Procedure 07/05/20 Procedure Performed/Findings EGD with bx Colon Anesthesia Type IV sedation by RESEARCH AGRICULTURAL ENGINEER Estimated Blood Loss Estimated blood loss (mL): scant Specimens/Packing Specimens Removed antral bx body of stomach bx GE jxn bx NUPUR LONG DO Jul 05, 2020 09:50
--- NOTE | 2020-07-05 09:51 | Endoscopy Discharge Instruct ---
Endo Procedure/Findings Findings 1.: Gastritis 2.: Internal Hemorrhoids Discharge Instructions - Activity: You might feel a little sleepy until tomorrow. This is due to the medicine you received to relax you. Until tomorrow, you should: NOT drive a car, operate machinery or power tools. NOT drink any alcoholic beverages. NOT make any important decisions or sign importortant papers. Do not return to work until tomorrow, unless otherwise instructed. Resume previous activities tomorrow. Diet: Start by taking liquids. If you tolerate liquids, advance to solid food. 1.: Colonscopy in 10 years, EGD in 3 years Notify Physician - If you experience excessive bleeding, unusual abdominal pain, fever, or chest p ain, contact your doctor immediately. NUPUR LONG DO Jul 05, 2020 09:51
--- NOTE | 2020-07-05 09:58 | Anesthesia-General Post-Op ---
MAC Patient Condition Mental Status/LOC: Same as Preop Cardiovascular: Satisfactory Nausea/Vomiting: Absent Respiratory: Satisfactory Pain: Controlled Complications: Absent Post Op Complications Complications None Follow Up Care/Instructions Patient Instructions None needed. Anesthesiology Discharge Order Discharge Order Patient is doing well, no complaints, stable vital signs, no apparent adverse anesthesia problems. No complications reported per nursing. ALEKSANDRA NAVARRO CRNA Jul 05, 2020 09:58
--- NOTE | 2020-07-06 03:40 | OPERATIVE REPORT ---
DATE OF SERVICE: 07/05/2020 PREOPERATIVE DIAGNOSES: Gastroesophageal reflux disease and rectal bleed. POSTOPERATIVE DIAGNOSES: Esophagitis, gastritis as well as internal and external hemorrhoids. PROCEDURE: 1. EGD with biopsy. 2. Colonoscopy. SURGEON: Clark Gilmore, DO CATERING CONVENTION SERVICES MANAGER: , MS3. ANESTHESIA: IV sedation by the VENEER MANUFACTURER. SPECIMEN: Biopsy from the antrum, biopsy of body of stomach, biopsy of the GE junction. BLOOD LOSS: Scant. FLUIDS: Per anesthesia. POSTOPERATIVE CONDITION: Stable. INDICATION FOR PROCEDURE: The patient is a 40-year-old female who is having some rectal bleeding and some increasing GERD symptoms, needed a workup. FINDINGS: The patient had some esophagitis, gastritis, possible small hiatal hernia. In the colon, she only had some internal and external hemorrhoids, did not see any obvious pathology. PROCEDURE NOTE: After informed consent was obtained, the patient was brought to the endoscopy suite, placed in bed in left lateral decubitus position. She was administered IV sedation by the VENEER MANUFACTURER, who then monitored his vitals the entire time, heart rate, blood pressure and pulse ox and the scope was inserted down the mouth through the esophagus into the stomach, noted some mild gastritis in the stomach, pushed into the duodenum. Duodenum looked fine. Pulled back and did a biopsy of the antrum. Retroflexed the scope, looked like there may have been a little bit of looseness of the GE junction, did a biopsy of body of stomach and then pulled the scope into the GE junction, noted some creeping up of the Z line, looked like some esophagitis, did a biopsy here and then pushed the scope into the stomach, suctioned all the air out and then pulled the scope up the esophagus and out the mouth. Switched camera, switched gloves, went down below, started the colonoscopy, pushed in to about 140 cm, able to get all way to the cecum, took a picture of appendiceal orifice, noted the ileocecal valve, then slowly withdrew the scope insufflating to look circumferentially at the ortiz looking the cecum, up the ascending colon to the hepatic flexure, down the transverse colon, splenic flexure, into the descending colon down into the sigmoid and finally into the rectum, retroflexed in the rectal vault, saw some internal hemorrhoids, took a picture of this. Also noted some external hemorrhoids, removed the scope. The patient tolerated the procedure, recovered in endoscopy suite. Job ID: [id number] DocumentID: [id number] Dictated Date: 07/05/2020 16:24:59 Maturity Checker Date: 07/06/2020 03:39:37 Dictated By: CLARK GILMORE DO
== END 2020-07-05 10:25 | disposition home or self-care (01) ==
LOC: ENDO 08:46
PROVIDERS: ATTEND Surgery
DX: K21.00 Gastro-esophageal reflux disease with esophagitis, without bleeding (principal); K29.70 Gastritis, unspecified, without bleeding; K64.8 Other hemorrhoids; K64.4 Residual hemorrhoidal skin tags; K62.5 Hemorrhage of anus and rectum; F17.210 Nicotine dependence, cigarettes, uncomplicated; I10 Essential (primary) hypertension; E78.5 Hyperlipidemia, unspecified; G47.33 Obstructive sleep apnea (adult) (pediatric); J44.9 Chronic obstructive pulmonary disease, unspecified; G40.909 Epilepsy, unspecified, not intractable, without status epilepticus; M54.2 Cervicalgia; M79.7 Fibromyalgia; F31.9 Bipolar disorder, unspecified; F43.10 Post-traumatic stress disorder, unspecified; E11.9 Type 2 diabetes mellitus without complications; L30.9 Dermatitis, unspecified; Z79.899 Other long term (current) drug therapy; Z91.19 Patient's noncompliance with other medical treatment and regimen; Z86.14 Personal history of Methicillin resistant Staphylococcus aureus infection; Z88.5 Allergy status to narcotic agent
CPT/HCPCS: 88305

== ENCOUNTER → 2020-07-05 | Outpatient (CLI) | payer MEDICARE, MEDICAID | LOC: WOUNDCARE 10:31 | PROVIDERS: ATTEND Surgery | DX: L92.8 Other granulomatous disorders of the skin and subcutaneous tissue (principal); L98.492 Non-pressure chronic ulcer of skin of other sites with fat layer exposed; L02.211 Cutaneous abscess of abdominal wall; E66.01 Morbid (severe) obesity due to excess calories; I96 Gangrene, not elsewhere classified; Z20.828 Contact with and (suspected) exposure to other viral communicable diseases | CPT/HCPCS: 17250 ==

== ENCOUNTER → 2020-07-07 | Outpatient (CLI) | payer MEDICARE, MEDICAID ==
[~2020-07-07] MED LIST changes: -LACTATED RINGERS 1,000 ML IV ONE
--- NOTE | 2020-07-07 11:19 | Diagnostic Imaging Report ---
PROCEDURE: US Non-ob pelvis comp/trans. TECHNIQUE: Multiple realtime grayscale images were obtained of the pelvis in various projections endovaginally. Transabdominal imaging was also performed. INDICATION: Abnormal uterine bleeding and secondary dysmenorrhea. Uterus measures 9.3 x 5.1 x 5.2 cm. Endometrium is 7 mm in thickness. There appear to be multiple cervical nabothian cysts present. There is an area of hypoechogenicity in the lower uterine segment anteriorly measuring approximately 15 mm. This may represent a fibroid. No other myometrial mass is detected. Ovaries cannot be visualized. No adnexal mass or free fluid is detected. IMPRESSION: Probable uterine fibroid. The study is otherwise unremarkable. No adnexal mass is detected. Dictated by: Dictated on workstation # [id number]
== END ==
LOC: RAD 09:50
PROVIDERS: ATTEND Obstetrics & Gynecology
DX: N94.5 Secondary dysmenorrhea (principal); N93.8 Other specified abnormal uterine and vaginal bleeding
CPT/HCPCS: 76830; 76856

== ENCOUNTER → 2020-07-12 | Outpatient (CLI) | payer MEDICARE, MEDICAID | LOC: WOUNDCARE 10:29 | PROVIDERS: ATTEND Surgery | DX: L92.8 Other granulomatous disorders of the skin and subcutaneous tissue (principal); L98.492 Non-pressure chronic ulcer of skin of other sites with fat layer exposed; L02.211 Cutaneous abscess of abdominal wall; E66.01 Morbid (severe) obesity due to excess calories; Z20.828 Contact with and (suspected) exposure to other viral communicable diseases | CPT/HCPCS: 99212 ==

== ENCOUNTER → 2020-07-22 | Outpatient (CLI) | payer MEDICARE, MEDICAID ==
--- NOTE | 2020-07-22 13:44 | Diagnostic Imaging Report ---
PROCEDURE: CT left lower extremity without contrast. TECHNIQUE: Multiple contiguous axial images were obtained through the left lower extremity without the use of intravenous contrast. Sagittal and coronal reformations were then performed. Auto Exposure Controls were utilized during the CT exam to meet ALARA standards for radiation dose reduction. INDICATION: Ankle pain COMPARISON: There are no prior CT examinations available for comparison. The fluoroscopic examination of the left ankle performed on 08/18/2019, noted an intramedullary sheyla longitudinally traversing the calcaneus and the ankle joint as well as an orthopedic fixation screw extending longitudinally through the calcaneus. There are other orthopedic fixation screws within the talus and the calcaneus, as well. There has been a fusion of the talus and tibia. The few segments appear stable although the linear lucency at the interface of the fusion does suggest that the fusion has not completely healed. There is no acute bony abnormality appreciated. On the road conductor film of this exam, the orthopedic hardware seems to be in good position and similar to the prior exam. The coronal reconstructed images do show that there has been a near complete fusion of the tibiotalar articulation. However, there is still a faint linear lucency at the interface of the tibiotalar fusion. This does suggest that the fusion is not complete. There are a number of small bony fragments along the anterolateral aspect of the calcaneus. These are most likely a sequela of prior trauma and/or surgery. There is no acute bony abnormality appreciated. The soft tissues are unremarkable. IMPRESSION: 1. The orthopedic hardware appears to be in good position and there is no acute bony abnormality appreciated.. 2. The linear lucency at the interface of the fusion between the tibia and talus does suggest that the fusion has not completely healed. Dictated by: Dictated on workstation # [id number]
== END ==
LOC: RAD 13:15
DX: M25.572 Pain in left ankle and joints of left foot (principal)
CPT/HCPCS: 73700

== ENCOUNTER 2020-08-20 10:10 | Emergency (ER) | payer MEDICARE, MEDICAID ==
[~2020-08-20] VITALS: Ht 180.3 cm; Wt 113.4 kg
[2020-08-20 10:15] VITALS: BP 121/81
[2020-08-20] MEDS ORDERED: KETOROLAC 60 MG/2 ML VIAL IM ONE (11:15)
--- NOTE | 2020-08-20 11:16 | ED EENT ---
History of Present Illness General Chief Complaint: Oral/Throat Problems Stated Complaint: MIGRAINES,BUMP IN MOUTH Nursing Triage Note: PT AMB TO TRIAGE WITH COMPLAINT OF BUMP ON TOOTH. STATES HAS BEEN GOING ON FOR 4-5 DAYS. STATES HAS RIGHT SIDE FACIAL PAIN AND MIGRAINE. Source: patient Exam Limitations: no limitations History of Present Illness Date Seen by Provider: Aug 20, 2020 Time Seen by Provider: 10:58 Initial Comments Patient resents ER by private conveyance with chief complaint of 3 days of an ulcer and nodule on the right inner cheek. She called her dentist but could not get a close appointment. She's never had this before. She's not having any drainage. She says now she is triggered one of her routine migraine headaches. No nausea fever chills diarrhea. No difficulty swallowing. The patient says she's been using Tylenol. Allergies and Home Medications Allergies Coded Allergies: hydrocodone (Verified Allergy, Unknown, vomiting and rash, 06/29/20) oxycodone (Verified Allergy, Unknown, vomiting and rash, 06/29/20) Home Medications Docusate Sodium 100 Mg Tablet, 100 MG PO DAILY, (Reported) Meloxicam 15 Mg Tablet, 15 MG PO DAILY, (Reported) Multivitamin 1 Each Tablet, 1 EACH PO DAILY, (Reported) Tucker 3 Polyunsat Fatty Acids 1,000 Mg Cap, 1,000 MG PO DAILY, (Reported) Tramadol HCl 50 Mg Tablet, 50-100 MG PO TID PRN for PAIN-MILD (1-4), (Reported) Patient Home Medication List Home Medication List Reviewed: Yes Review of Systems Review of Systems Constitutional: No chills, No diaphoresis Eyes: Denies Blurred Vision, Denies Drainage Ears: Denies Dizziness, Denies Pain Nose: denies clots, denies congestion Mouth: denies clots; pain, swelling Throat: denies pain, denies swelling Respiratory: No cough, No wheezing Cardiovascular: No chest pain, No edema Past Ofhbvpv-Fwedel-Kmatru Hx Patient Social History Alcohol Use: Denies Use Recreational Drug Use: No Drug of Choice: THC Smoking Status: Current Everyday Smoker Type Used: Cigarettes 2nd Hand Smoke Exposure: Yes Recent Foreign Travel: No Contact w/Someone Who Travel: No Recent Infectious Disease Expo: No Recent Hopitalizations: No Immunizations Up To Date Tetanus Booster (TDap): Unknown Seasonal Allergies Seasonal Allergies: Yes Past Medical History Surgeries: Yes (left ankle x2, c/s x3, trigger finger) Section, Orthopedic Respiratory: Yes Asthma, Sleep Apnea, COPD Currently Using CPAP: No Cardiac: Yes High Cholesterol, Hypertension Neurological: Yes Headaches /Migraines, Seizure Disorder Genitourinary: No Gastrointestinal: Yes (rectal bleeding) Gastroesophageal Reflux Musculoskeletal: Yes (CHRONIC NECK PAIN ) Fibromyalgia, Chronic Back Pain Endocrine: Yes (pre diabetic) Diabetes, Non-Insulin dep HEENT: No Cancer: No Psychosocial: Yes Anxiety, PTSD, Bipolar, Depression Integumentary: Yes (left side abd wound seeing wound care) Eczema Blood Disorders: No Family Medical History PSH: -RIGHT PLATAR FASCITIS -LEFT ANKLE SURGERIES--PIN, FUSION AND REVISION - X 3 -HEMORRHOIDECTOMY -RIGHT HAND TENDON REPAIR Physical Exam Vital Signs Vital Signs - First Documented 08/20/20 10:15 Temp 35.3 Pulse 77 Resp 20 B/P (MAP) 121/81 (94) Pulse Ox 97 O2 Delivery Room Air Height, Weight, BMI Height: '" Weight: lbs. oz. kg; 34.00 BMI Method: General Appearance: WD/WN, mild distress Eyes: bilateral eye normal inspection, bilateral eye PERRL, bilateral eye EOMI Ears: bilateral ear auricle normal, bilateral ear canal normal Nose: normal inspection; No active bleeding, No discharge Mouth/Throat: other (benign aphthous ulcer on the right inner oral labia and buccal surface. No exudates induration or fluctuance.) Neck: non-tender, full range of motion Cardiovascular: normal peripheral pulses, regular rate, rhythm Progress/Results/Core Measures Results/Orders My Orders Orders - ADRIANNA PURCELL Ketorolac Injection (Toradol Injection) (08/20/20 11:15) Vital Signs/I&O 08/20/20 10:15 Temp 35.3 Pulse 77 Resp 20 B/P (MAP) 121/81 (94) Pulse Ox 97 O2 Delivery Room Air Blood Pressure Mean: 94 Progress Progress Note : Time: 11:13 Progress Note Plan to use and add mixture of phenol and sulfuric acid to deaden the ulcer pain. Toradol IM for her migraine. Departure Impression Primary Impression: Oral aphthous ulcer Additional Impressions: Migraine Qualified Codes: G43.009 - Migraine without aura, not intractable, without status migrainosus Dental abscess Disposition: 01 HOME, SELF-CARE Condition: Stable Departure-Patient Inst. Decision time for Depature: 11:14 Referrals: SAUL MAR MD (PCP/Family) Primary Care Physician Patient Instructions: Mouth Sores (DC), Dental Pain (DC) Add. Discharge Instructions: Continue to take Tylenol 1000 mg every 8 hours as necessary for pain. Ibuprofen 800 mg every 8 hours as necessary for pain. Orajel, topical tooth gels applied directly over the ulcer can help reduce pain. Mouthwashes can be helpful. Amoxicillin one capsule 3 times a day for the next week. Follow-up with a dentist if these become recurrent. Consider these contagious and do not allow anyone to drink after you until the ulcer has completely healed. All discharge instructions reviewed with patient and/or family. Voiced understanding. Scripts Amoxicillin (Amoxicillin) 500 Mg Capsule 500 MG PO TID for 7 Days, #21 CAP 0 Refills Prov: ADRIANNA PURCELL 08/20/20 Work/School Note: Work Release Form Date Seen in the Emergency Department: Aug 20, 2020 Return to Work: Aug 21, 2020 Restrictions: No Restrictions ADRIANNA PURCELL Aug 20, 2020 11:16
[2020-08-20] MEDS ORDERED: AMOX500C2 PO (11:31)
== END 2020-08-20 11:34 | disposition home or self-care (01) ==
LOC: EDUNIT# 10:10 → ER 10:12
DX: K12.0 Recurrent oral aphthae (principal); G43.909 Migraine, unspecified, not intractable, without status migrainosus; K04.7 Periapical abscess without sinus; F17.210 Nicotine dependence, cigarettes, uncomplicated; Z20.828 Contact with and (suspected) exposure to other viral communicable diseases; Z88.5 Allergy status to narcotic agent
CPT/HCPCS: 99284

== ENCOUNTER 2020-10-25 12:53 | Emergency (ER) | payer MEDICARE, MEDICAID ==
[~2020-10-25] VITALS: Ht 108.3 cm; Wt 124.7 kg
[~2020-10-25 12:53] MED LIST changes: +AMOX500C2 PO
[2020-10-25 13:06] VITALS: BP 145/109
[2020-10-25] MEDS ORDERED: KETOROLAC 30 MG/ML VIAL ONE (13:13)
[2020-10-25] MEDS ORDERED: KETOROLAC 60 MG/2 ML VIAL ONE (13:14)
[2020-10-25] MEDS ORDERED: KETOROLAC 60 MG/2 ML VIAL IM STA (13:17)
--- NOTE | 2020-10-25 14:17 | ED General ---
General Chief Complaint: Chest Wall Stated Complaint: SOB,COUGH Nursing Triage Note: PT AMBULATE TO ROOM 09 WITH C/O RIGHT SIDE RIB PAIN. PT STATES THAT SHE SLIPPED AND FELL ON A RAMP ON SUNDAY AND MAY HAVE HIT HER RIGHT RIB ON THE HAND RAIL. PT REPORTS PAIN IS WORSE TODAY. PT REPORTS SOB AND SHE IS DOES NOT KNOW IF THIS IS RELATED TO HER FALL. Nursing Sepsis Screen: No Definite Risk Source of Information: Patient Exam Limitations: No Limitations History of Present Illness Date Seen by Provider: Oct 25, 2020 Time Seen by Provider: 13:10 Initial Comments Here for twofold reasons. Main complaint is right rib pain after fall 4 days ago. She states that she slipped and fell on a ramp and hit her right ribs on the rail. Notes that she has pain that is worse with deep breathing and better with rest. Also worse with movement or palpation. Also noted to have mild sore throat and runny nose without fever. States that she feels that she may have a little cold. States her daughter had something similar and is doing better. Denies contact with COVID-19. Has had multiple test in the past without positivity. Denies nausea, vomiting, diarrhea, headache or chills. She has tried ibuprofen, Tylenol and her prescribed tramadol for the rib pain. Timing/Duration: 3-4 Days Severity: Moderate Associated Systoms: No Cough, No Fever/Chills, No Shortness of Air, No Weakness Allergies and Home Medications Allergies Coded Allergies: hydrocodone (Verified Allergy, Unknown, vomiting and rash, 06/29/20) oxycodone (Verified Allergy, Unknown, vomiting and rash, 06/29/20) Home Medications Amoxicillin 500 Mg Capsule, 500 MG PO TID Prescribed by: ADRIANNA PURCELL on 08/20/20 1131 Docusate Sodium 100 Mg Tablet, 100 MG PO DAILY, (Reported) Meloxicam 15 Mg Tablet, 15 MG PO DAILY, (Reported) Multivitamin 1 Each Tablet, 1 EACH PO DAILY, (Reported) Trevor 3 Polyunsat Fatty Acids 1,000 Mg Cap, 1,000 MG PO DAILY, (Reported) Tramadol HCl 50 Mg Tablet, 50-100 MG PO TID PRN for PAIN-MILD (1-4), (Reported) Patient Home Medication List Home Medication List Reviewed: Yes Review of Systems Review of Systems Constitutional: see HPI; No chills, No fever EENTM: nose congestion, throat pain (Scratchy) Respiratory: see HPI Cardiovascular: see HPI Gastrointestinal: no symptoms reported Genitourinary: no symptoms reported Musculoskeletal: No back pain; joint pain, muscle pain; No neck pain Skin: No change in color, No lesions Past Utxbamd-Xbaugx-Hrlayg Hx Past Med/Social Hx: Reviewed Nursing Past Med/Soc Hx Patient Social History Alcohol Use: Occasionally Uses Drug of Choice: THC Smoking Status: Current Everyday Smoker Type Used: Cigarettes 2nd Hand Smoke Exposure: Yes Recent Infectious Disease Expo: No Recent Hopitalizations: No Immunizations Up To Date Tetanus Booster (TDap): Unknown Seasonal Allergies Seasonal Allergies: Yes Past Medical History Surgeries: Yes (left ankle x2, c/s x3, trigger finger) Section, Orthopedic Respiratory: Yes Asthma, Sleep Apnea, COPD Currently Using CPAP: No Cardiac: Yes High Cholesterol, Hypertension Neurological: Yes Headaches /Migraines, Seizure Disorder Genitourinary: No Gastrointestinal: Yes (rectal bleeding) Gastroesophageal Reflux Musculoskeletal: Yes (CHRONIC NECK PAIN ) Fibromyalgia, Chronic Back Pain Endocrine: Yes (pre diabetic) Diabetes, Non-Insulin dep HEENT: No Cancer: No Psychosocial: Yes Anxiety, PTSD, Bipolar, Depression Integumentary: Yes (left side abd wound seeing wound care) Eczema Blood Disorders: No Family Medical History Reviewed Nursing Family Hx No Pertinent Family Hx PSH: -RIGHT PLATAR FASCITIS -LEFT ANKLE SURGERIES--PIN, FUSION AND REVISION - X 3 -HEMORRHOIDECTOMY -RIGHT HAND TENDON REPAIR Physical Exam Vital Signs Vital Signs - First Documented 10/25/20 13:06 Temp 36.4 Pulse 77 Resp 16 B/P (MAP) 145/109 (121) O2 Delivery Room Air Capillary Refill : Less Than 3 Seconds Height, Weight, BMI Height: '" Weight: lbs. oz. kg; 106.00 BMI Method: General Appearance: No Apparent Distress, WD/WN, Obese HEENT: PERRL/EOMI, Pharyngeal Erythema (Mild), Other (Mild nasal congestion with clear rhinorrhea) Neck: Full Range of Motion, Normal Inspection, Non Tender, Supple Respiratory: Lungs Clear, Normal Breath Sounds, Other (Tender to palpation to the right lateral lower chest wall across the rib margin.) Cardiovascular: Regular Rate, Rhythm, No Murmur Back: Normal Inspection, No CVA Tenderness, No Vertebral Tenderness Extremity: Normal Range of Motion, Non Tender Neurologic/Psychiatric: Alert, Oriented x3 Skin: Warm/Dry; No Ecchymosis, No Erythema Progress/Results/Core Measures Suspected Sepsis Recent Fever Within 48 Hours: No Infection Criteria Present: None New/Unexplained Altered Menta: No Sepsis Screen: No Definite Risk SIRS Temperature: Pulse: 77 Respiratory Rate: 16 Blood Pressure 145 /109 Mean: 121 Results/Orders Lab Results Laboratory Tests Test 10/25/20 13:17 Range/Units Coronavirus 2019 (ANGELA) Negative Negative Micro Results Microbiology 10/25/20 Influenza Types A,B Antigen (MIMI) - Final, Complete My Orders Orders - MARIN ZAVALA MD Covid 19 Inhouse Test (10/25/20 13:17) Ribs/Unilateral With Chest (10/25/20 13:17) Ketorolac Injection (Toradol Injection) (10/25/20 13:17) Influenza A And B Antigens (10/25/20 13:17) Ketorolac Injection (Toradol Injection) (10/25/20 13:13) Ketorolac Injection (Toradol Injection) (10/25/20 13:14) Vital Signs/I&O 10/25/20 13:06 Temp 36.4 Pulse 77 Resp 16 B/P (MAP) 145/109 (121) O2 Delivery Room Air Capillary Refill : Less Than 3 Seconds Blood Pressure Mean: 121 Progress Note : Progress Note Seen and evaluated. Chest x-ray with right rib series ordered. Toradol 60 mg IM and influenza and rapid Covid screen ordered. Monitor patient. 1410: Covid screen and influenza screen negative. To radiology. Monitor patient. 1452: No acute fractures on chest x-ray. I did discuss with her about bfme-dap-zruanak o ptions. She does follow with Dr. Saul Mar for her pain medicines and I will have her call there for adjustments as needed. I will send a copy of the chart to Dr. Mar. Discharged home with return precautions. Patient verbalized understanding of instructions and agreement with plan. Diagnostic Imaging Diagonstic Imaging: Xray Plain Films/CT/US/NM/MRI: chest Comments [facility] [place], [place] NAME: ROGERALBER [employer] REC#: [id number] PT STATUS: REG ER : 1980 PHYSICIAN: MARIN ZAVALA MD ADMIT DATE: 10/25/20/ER Draft Date of Exam:10/25/20 RIBS/UNILATERAL WITH CHEST INDICATION: Pain status post fall. Trauma. Shortness of air. COMPARISON: 01/11/2018 FINDINGS: Frontal radiographic view of the chest shows normal cardiac silhouette and pulmonary vasculature. Lungs clear. There is no focal consolidation, large effusion, no pneumothorax. Multiple radiographic views of the right ribs were also obtained and show no healing or displaced right-sided rib fractures. No other acute osseous abnormalities are identified. IMPRESSION: 1. No acute cardiopulmonary process. 2. No healing or displaced right-sided rib fractures. Dictated on workstation # [id number] Dict: 10/25/20 1435 Trans: 10/25/20 1439 CVB [id number] Interpreted by: RAE MODI MD Electronically signed by: Departure Impression Primary Impression: Contusion of rib on right side Qualified Codes: S20.211A - Contusion of right front wall of thorax, initial encounter Disposition: 01 HOME, SELF-CARE Condition: Stable Departure-Patient Inst. Decision time for Depature: 14:54 Referrals: SAUL MAR MD (PCP/Family) Primary Care Physician Patient Instructions: Bruised Rib Add. Discharge Instructions: All discharge instructions reviewed with patient and/or family. Voiced understanding. You may use chui-hxg-euzebri Icy Hot with lidocaine patches, Aspercreme with lidocaine patches, Salonpas with lidocaine patches or similar items to area of concern per package directions. You may take ibuprofen 800 mg every 8 hours as needed for pain. You may also take Tylenol/acetaminophen 1000 mg every 8 hours as needed for pain. Follow-up with your doctor in a few days for recheck. Call her office for appointment and to discuss your pain medication prescription. You may use ice packs over the area of concern 20 minutes/h as needed as well. Return for worse pain, cough, fever, breathing problems or other concerns as needed. Your COVID-19 test and your influenza test are both negative. Copy Copies To 1: SAUL MAR MD, TIMOTHY D MD Oct 25, 2020 14:17
--- NOTE | 2020-10-25 14:40 | Diagnostic Imaging Report ---
INDICATION: Pain status post fall. Trauma. Shortness of air. COMPARISON: 01/11/2018 FINDINGS: Frontal radiographic view of the chest shows normal cardiac silhouette and pulmonary vasculature. Lungs clear. There is no focal consolidation, large effusion, no pneumothorax. Multiple radiographic views of the right ribs were also obtained and show no healing or displaced right-sided rib fractures. No other acute osseous abnormalities are identified. IMPRESSION: 1. No acute cardiopulmonary process. 2. No healing or displaced right-sided rib fractures. Dictated by: Dictated on workstation # [id number]
== END 2020-10-25 15:03 | disposition home or self-care (01) ==
LOC: EDUNIT# 12:53 → ER 12:55
DX: S20.20XA Contusion of thorax, unspecified, initial encounter (principal); E66.9 Obesity, unspecified; F17.210 Nicotine dependence, cigarettes, uncomplicated; Z68.45 Body mass index [BMI] 70 or greater, adult; Z88.5 Allergy status to narcotic agent; Z20.822 Contact with and (suspected) exposure to COVID-19; W01.198A Fall on same level from slipping, tripping and stumbling with subsequent striking against other object, initial encounter
CPT/HCPCS: 71101; 87804; U0002; 87635

== ENCOUNTER 2021-02-10 22:44 | Emergency (ER) | payer MEDICAID, MEDICARE ==
--- NOTE | 2021-02-10 23:54 | ED Lower Extremity ---
General Chief Complaint: Lower Extremity Stated Complaint: PAIN IN HEEL/CAST ISSUE Source: patient Exam Limitations: no limitations History of Present Illness Date Seen by Provider: February 10, 2021 Time Seen by Provider: 23:30 Initial Comments Patient presents ER by her conveyance with chief complaint of some pain and felt like her dressing had fallen off of her wound and over the past day and a half has gotten worse in terms of pain. I have any drainage or discharge through her splint. She had a bone spur taken off by her lift electrician in [place], [place]. She called him and he said, to the ER. She said no fevers chills nausea vomiting diarrhea. Has had multiple surgeries on her foot in the past. She is using a motorized scooter to get around. Nonweightbearing. Surgery was on Sunday, 12 days ago. Allergies and Home Medications Allergies Coded Allergies: hydrocodone (Verified Allergy, Unknown, vomiting and rash, 06/29/20) oxycodone (Verified Allergy, Unknown, vomiting and rash, 06/29/20) Home Medications Amoxicillin 500 Mg Capsule, 500 MG PO TID Prescribed by: ADRIANNA PURCELL on 08/20/20 1131 Docusate Sodium 100 Mg Tablet, 100 MG PO DAILY, (Reported) Meloxicam 15 Mg Tablet, 15 MG PO DAILY, (Reported) Multivitamin 1 Each Tablet, 1 EACH PO DAILY, (Reported) [place] 3 Polyunsat Fatty Acids 1,000 Mg Cap, 1,000 MG PO DAILY, (Reported) Tramadol HCl 50 Mg Tablet, 50-100 MG PO TID PRN for PAIN-MILD (1-4), (Reported) Patient Home Medication List Home Medication List Reviewed: Yes Review of Systems Constitutional: No chills, No diaphoresis EENTM: No ear discharge, No ear pain Respiratory: No cough, No short of breath Cardiovascular: No edema, No syncope Gastrointestinal: No abdominal pain, No nausea Genitourinary: No discharge, No dysuria Musculoskeletal: see HPI; No back pain; joint pain All Other Systems Reviewed Negative Unless Noted: Yes Past Bnlqqyt-Tcgwlj-Brnvcm Hx Patient Social History Alcohol Use: Denies Use Drug of Choice: THC Smoking Status: Current Everyday Smoker Type Used: Cigarettes 2nd Hand Smoke Exposure: Yes Recent Hopitalizations: No Immunizations Up To Date Tetanus Booster (TDap): Unknown Seasonal Allergies Seasonal Allergies: Yes Past Medical History Surgeries: Yes (left ankle x2, c/s x3, trigger finger) Section, Orthopedic Respiratory: Yes Asthma, Sleep Apnea, COPD Currently Using CPAP: No Cardiac: Yes High Cholesterol, Hypertension Neurological: Yes Headaches /Migraines, Seizure Disorder Genitourinary: No Gastrointestinal: Yes (rectal bleeding) Gastroesophageal Reflux Musculoskeletal: Yes (CHRONIC NECK PAIN ) Fibromyalgia, Chronic Back Pain Endocrine: Yes (pre diabetic) Diabetes, Non-Insulin dep HEENT: No Cancer: No Psychosocial: Yes Anxiety, PTSD, Bipolar, Depression Integumentary: Yes (left side abd wound seeing wound care) Eczema Blood Disorders: No Family Medical History No Pertinent Family Hx PSH: -RIGHT PLATAR FASCITIS -LEFT ANKLE SURGERIES--PIN, FUSION AND REVISION - X 3 -HEMORRHOIDECTOMY -RIGHT HAND TENDON REPAIR Physical Exam Vital Signs Capillary Refill : Height, Weight, BMI Height: '" Weight: lbs. oz. kg; 106.00 BMI Method: General Appearance: WD/WN, no apparent distress HEENT: PERRL/EOMI, pharynx normal Cardiovascular: normal peripheral pulses, regular rate, rhythm, no edema Respiratory: no respiratory distress, no accessory muscle use Legs: bilateral leg non-tender, bilateral leg normal inspection, bilateral leg normal range of motion, bilateral leg no evidence of injury, bilateral leg other (Left leg with a splint molded around the lower leg. Scant amount of dark, dry sanguinous drainage on the heel) Feet: left foot other (There is a clean dry intact nonerythematous nonindurated, nonraised surgical incision with Xeroform intact on the medial portion of her left heel.) Progress/Results/Core Measures Progress Progress Note : Time: 23:51 Progress Note Unremarkable surgical wound examination. Plan to rewrap her with copious wound packing, fluff and reapply the splint. Encourage her to follow-up with her orthopedic surgeon outpatient tomorrow by phone. Aseptic vital signs Departure Impression Primary Impression: Wound healing well on examination Disposition: 01 HOME, SELF-CARE Condition: Stable Departure-Patient Inst. Decision time for Depature: 23:52 Referrals: SAUL MAR MD (PCP/Family) Primary Care Physician Patient Instructions: SPLINT CARE Add. Discharge Instructions: Keep the splint clean. Follow-up with a phone call to your orthopedic surgeon tomorrow. All discharge instructions reviewed with patient and/or family. Voiced understanding. ADRIANNA PURCELL February 10, 2021 23:53
[2021-02-11] VITALS: BP 124/78
== END 2021-02-11 | disposition home or self-care (01) ==
LOC: EDUNIT# 22:44 → ER 22:47
DX: Z48.01 Encounter for change or removal of surgical wound dressing (principal); I10 Essential (primary) hypertension; E11.9 Type 2 diabetes mellitus without complications; J44.9 Chronic obstructive pulmonary disease, unspecified; M79.7 Fibromyalgia; G89.29 Other chronic pain; M54.2 Cervicalgia; F41.9 Anxiety disorder, unspecified; F31.9 Bipolar disorder, unspecified; F17.210 Nicotine dependence, cigarettes, uncomplicated; Z79.1 Long term (current) use of non-steroidal anti-inflammatories (NSAID); Z79.891 Long term (current) use of opiate analgesic
CPT/HCPCS: 99282

== ENCOUNTER → 2021-03-04 | Outpatient (CLI) | payer MEDICAID ==
[~2021-03-04] MED LIST changes: +CATHETER FLUSH 10 ML SYR IV PRN; +GABA800T10 PO; +HYDR-700 PO; +HYDR25TA4 PO; +LAMO200T5 PO; +METH-731 PO; +NORT25CA PO; +QUET200T29 PO; +SERT-414 PO
--- NOTE | 2021-03-04 14:35 | Diagnostic Imaging Report ---
RADIOPHARMACEUTICAL: 4.98mCi Tc-99m Choletec IV INDICATION: Right upper quadrant pain TECHNIQUE: Anterior dynamic imaging for 1 hour. Additional 60 minutes of imaging was performed after the patient ingested an 8 ounce can of Ensure Plus. FINDINGS: There is homogenous uptake throughout the liver. The gallbladder is visualized at 20minutes. The small bowel is identified at 65 minutes of imaging. After the patient ingested an 8 ounce can of Ensure Plus, there is abnormally low gallbladder ejection fraction calculated at 17%. IMPRESSION: 1. No evidence of acute cholecystitis or common duct obstruction. 2. Abnormally low GBEF of 17%. This finding may relate to underlying biliary dyskinesia versus chronic acalculous cholecystitis. Dictated by: Dictated on workstation # [id number]
== END ==
LOC: CARD 12:00
PROVIDERS: ATTEND Surgery
DX: R10.11 Right upper quadrant pain (principal)
CPT/HCPCS: 78227; A9537

== ENCOUNTER 2021-03-07 10:08 | Outpatient (CLI) | payer MEDICAID ==
[~2021-03-07] VITALS: Ht 180.3 cm; Wt 134.1 kg
[~2021-03-07 10:08] MED LIST changes: -CATHETER FLUSH 10 ML SYR IV PRN; -GABA800T10 PO; -HYDR-700 PO; -HYDR25TA4 PO; -LAMO200T5 PO; -METH-731 PO; -NORT25CA PO; -QUET200T29 PO; -SERT-414 PO
[2021-03-07] MEDS ORDERED: LAMO200T5 PO (11:52)
[2021-03-07] MEDS ORDERED: HYDR-700 PO (11:52)
[2021-03-07] MEDS ORDERED: GABA800T10 PO (11:52)
[2021-03-07] MEDS ORDERED: QUET200T29 PO (11:52)
[2021-03-07] MEDS ORDERED: METH-731 PO (11:52)
[2021-03-07] MEDS ORDERED: CYCL10TA9 PO (11:52)
[2021-03-07] MEDS ORDERED: HYDR25TA4 PO (11:52)
[2021-03-07] MEDS ORDERED: NORT25CA PO (11:52)
[2021-03-07] MEDS ORDERED: SERT-414 PO (11:52)
[2021-03-10] MEDS ORDERED: TRAM-42 PO (11:56)
== END 2021-03-07 12:11 | disposition home or self-care (01) ==
LOC: PREOP 10:08
PROVIDERS: ATTEND Surgery
DX: Z01.818 Encounter for other preprocedural examination (principal)

== ENCOUNTER 2021-03-10 11:48 | Day surgery (SDC) | payer MEDICAID ==
[~2021-03-10] VITALS: Ht 180 cm; Wt 134.1 kg
[2021-03-10] VITALS (12 sets, daily range): BP systolic 126–187; BP diastolic 70–90
[~2021-03-10 11:48] MED LIST changes: +GABA800T10 PO; +HYDR-700 PO; +HYDR25TA4 PO; +LAMO200T5 PO; +METH-731 PO; +NORT25CA PO; +QUET200T29 PO; +SERT-414 PO
--- NOTE | 2021-03-10 11:53 | Progress Note-Pre Operative ---
Pre-Operative Progress Note H&P Reviewed The H&P was reviewed, patient examined and no changes noted. Date Seen by Provider: Mar 10, 2021 Time Seen by Provider: 11:30 Date H&P Reviewed: Mar 10, 2021 Time H&P Reviewed: :30 Pre-Operative Diagnosis: sx biliary dyskinesia QUAN JOSE MD Mar 10, 2021 11:53
[2021-03-10] MEDS ORDERED: TRAM-42 PO (11:56)
--- NOTE | 2021-03-10 11:57 | Discharge Inst-Surgical ---
D/C Lap Instructions-KIDO New, Converted, or Re-Newed RX: RX on Chart Follow Up Appt in 2 weeks Activity as tolerated High Fiber Diet 25g or more per day Avoid Alcohol, Caffeine, Spicy [place]ley and Acid foods. Drink 64 fluid oz or more of fluids per day. Symptoms to Report: Fever over 101 degree F, Nausea/Vomiting If any problems/questions: Contact your physician or go to Emergency Room QUAN JOSE MD Mar 10, 2021 11:57
[2021-03-10] MEDS ORDERED: ONDANSETRON 4 MG/2 ML (SDV) Z0FRAN IVP PRN ×2 (12:00→15:30)
[2021-03-10] MEDS ORDERED: morphine INJ 10 MG/ML 1ML (SYR OR VIAL) IVP PRN ×2 (12:00)
[2021-03-10] MEDS ORDERED: ACETAMINOPHEN 325 MG TABLET PO PRN (12:00)
[2021-03-10 12:24] LABS: BASOPHILS # (AUTO) 0.1 10^3/uL (0.0-0.1); BASOPHILS % (AUTO) 1 % (0-10); EOSINOPHILS # (AUTO) 0.2 10^3/uL (0.0-0.3); EOSINOPHILS % (AUTO) 1 % (0-10); HEMATOCRIT 45 % (35-52); HEMOGLOBIN 14.3 g/dL (11.5-16.0); LYMPHOCYTES # (AUTO) 3.7 10^3/uL (1.0-4.0); LYMPHOCYTES % (AUTO) 33 % (12-44); MEAN CORPUSCULAR HEMOGLOBIN 28 pg (25-34); MEAN CORPUSCULAR HGB CONC 32 g/dL (32-36); MEAN CORPUSCULAR VOLUME 87 fL (80-99); MEAN PLATELET VOLUME 8.9 fL (9.0-12.2); MONOCYTES # (AUTO) 0.4 10^3/uL (0.0-1.0); MONOCYTES % (AUTO) 4 % (0-12); NEUTROPHILS # (AUTO) 6.9 10^3/uL (1.8-7.8); NEUTROPHILS % (AUTO) 61 % (42-75); PLATELET COUNT 277 10^3/uL (130-400); WHITE BLOOD COUNT 11.3 10^3/uL (4.3-11.0)
[2021-03-10] MEDS: LACTATED RINGERS 1,000 ML IV PRN ×2 (12:30→14:56)
[2021-03-10] MEDS ORDERED: ceFAZolin 2 GM IV Premixed 50 ML IV ONE (12:30)
[2021-03-10] MEDS ORDERED: GLYCOPYRROLATE 0.2 MG/ML (ROBINUL) 2 ML VIAL ONE (12:33)
[2021-03-10] MEDS ORDERED: ONDANSETRON 4 MG/2 ML (SDV) Z0FRAN ONE (12:33)
[2021-03-10] MEDS ORDERED: ROCURONIUM 10 MG/ML 5 ML SYRINGE IV ONE (12:33)
[2021-03-10] MEDS ORDERED: fentaNYL INJ 100 MCG/2 ML AMP ONE ×2 (12:33→15:33)
[2021-03-10] MEDS ORDERED: LIDOCAINE PF 2% 5 ML (XYLOCAINE) VIAL ONE (12:33)
[2021-03-10] MEDS ORDERED: NEOSTIGMINE 3 MG/3 ML VIAL ONE (12:33)
[2021-03-10] MEDS ORDERED: proPOfol 200 MG/20 ML (DIPRIVAN) VIAL IV ONE (12:33)
[2021-03-10] MEDS ORDERED: SUCCINYLCHOLINE INJ 100 MG/5 ML SYR/VIAL ONE (12:33)
[2021-03-10] MEDS ORDERED: MIDAZOLAM 2 MG/2 ML (VERSED) VIAL ONE (12:34)
[2021-03-10] MEDS ORDERED: ONDANSETRON 4 MG/2 ML (SDV) Z0FRAN IVP ONE (12:45)
[2021-03-10] MEDS ORDERED: FAMOTIDINE 20MG/2ML IV (PEPCID) IVP ONE (12:45)
[2021-03-10] MEDS ORDERED: SCOPOLAMINE 1.5 MG (TRANSDERM-SCOP) PATCH TD ONE (12:45)
[2021-03-10] MEDS ORDERED: LIDOCAINE/EPI 1%-1:100,000 (XYLOCAINE) 20ML ONE (12:57)
[2021-03-10] MEDS ORDERED: SEVOFLURANE (ULTANE) 15 ML INHAL SOLN ONE ×2 (14:11→15:35)
[2021-03-10] MEDS ORDERED: HYDROmorphone 2 MG/ML VIAL (DILAUDID) ONE ×2 (15:01→15:23)
--- NOTE | 2021-03-10 15:12 | Progress Note-Post Operative ---
Post-Operative Progess Note Surgeon (s)/Processing Clerk (s) Surgeon QUAN JOSE MD Processing Clerk: julia summers [employer]AW FEEDER Pre-Operative Diagnosis sx biliary dyskinesia Post-Operative Diagnosis same Procedure & Operative Findings Date of Procedure 03/10/21 Procedure Performed/Findings laparoscopic cholecystectomy Anesthesia Type get Estimated Blood Loss Estimated blood loss (mL): minimal Specimens/Packing Specimens Removed gallbladder QUAN JOSE MD Mar 10, 2021 15:12
[2021-03-10] MEDS ORDERED: RT-ALBUTEROL SULF 2.5 MG/3 ML PRE-MIX VIAL INH ONE (15:30)
[2021-03-10] MEDS ORDERED: PROMETHAZINE INJ 25 MG/ML (PHENERGAN) AMP IVP ONE (15:30)
[2021-03-10] MEDS ORDERED: morphine INJ 10 MG/ML 1ML (SYR OR VIAL) IVP ONE (15:30)
[2021-03-10] MEDS ORDERED: HYDROmorphone 2 MG/ML VIAL (DILAUDID) IV ONE (15:30)
--- NOTE | 2021-03-10 15:34 | Anesthesia-General Post-Op ---
General Patient Condition Mental Status/LOC: Same as Preop Cardiovascular: Satisfactory Nausea/Vomiting: Absent Respiratory: Satisfactory Pain: Controlled Complications: Absent Post Op Complications Complications None Follow Up Care/Instructions Patient Instructions None needed. Anesthesia/Patient Condition Patient Condition Patient is in PACU C/O abdominal pain, which is to be expected. She has morphine, hydromorphone and fentanyl ordered. She has stable vital signs, no apparent adverse anesthesia problems. BARBARA CORADO DO Mar 10, 2021 15:34
[2021-03-10] MEDS ORDERED: fentaNYL INJ 100 MCG/2 ML AMP IVP ONE (15:45)
[2021-03-10] MEDS ORDERED: diphenhydrAMINE 25 MG TAB (BENADRYL) PO ONE (17:15)
--- NOTE | 2021-03-10 20:13 | OPERATIVE REPORT ---
DATE OF SERVICE: 03/10/2021 ATTENDING PRIMARY CARE PHYSICIAN: Dr. Melania Aponte. PREOPERATIVE DIAGNOSIS: Symptomatic biliary dyskinesia. POSTOPERATIVE DIAGNOSIS: Symptomatic biliary dyskinesia. PROCEDURE: Laparoscopic cholecystectomy. SURGEON: Quan Jose MD. ARTIFICIAL STONE SETTER: Nate Cavanaugh APRN. ANESTHESIA: General endotracheal. ESTIMATED BLOOD LOSS: Minimal. FINDINGS: Distended gallbladder. No gallbladder wall thickening. DISPOSITION: The patient tolerated the procedure well. INDICATIONS: The patient is a 40-year-old female who was initially referred over to us for right upper abdominal quadrant pain with nausea and vomiting. She states that this has been going on for a few years and was worse during each of her pregnancies; however, has reoccurred and has become significantly worse in the past 6 months. She describes the pain as sharp in nature and in the right upper abdominal quadrant and usually associated after eating meals and will also be accompanied by nausea and vomiting. An ultrasound was performed, which did not show any gallstones; however, a HIDA scan showed a low ejection fraction of 17% consistent with a biliary dyskinesia. DESCRIPTION OF PROCEDURE: The patient was brought to the operating room, laid supine on the table. After adequate IV pain and sedative medications and general endotracheal intubation, the abdomen was prepped and draped in standard surgical fashion. A 0.5% Marcaine with epinephrine was used to anesthetize overlying skin in the left upper abdominal quadrant and a transverse skin incision made using a 15 blade. An 0 silk suture was applied to the medial aspect of the incision for retraction and a Veress needle inserted with a low opening pressure of 0 mmHg and the abdomen was then insufflated to 15 mmHg pressure. The Veress needle removed and a 5 mm XL trocar placed followed by a 5 mm 45-degree angle laparoscope visualizing the peritoneal cavity. A 4-quadrant abdominal exploration was performed. There was a distended gallbladder. There did not appear to be any gallbladder wall thickening. Under direct visualization, we then proceed to place a 10 mm supraumbilical port after the skin and peritoneal lining were anesthetized using 0.5% Marcaine with epinephrine and a transverse skin incision made using a 15 blade. In a similar manner, a right upper abdominal quadrant 5 mm port was placed. Fundus of the gallbladder was then retracted anteriorly and superiorly, and the patient was then placed in a reverse Trendelenburg position as well as plane right side up, left side down. The hepatoduodenal ligament was then dissected using blunt dissection as well as electrocautery on the hook instrument. The entire critical view of safety was identified including the triangle of Calot as well as the cystic duct and artery as only two structures going into the gallbladder as well as the cystic plate behind the proximal gallbladder. A timeout was then taken, and the cystic duct and artery were then clipped proximally and distally and cut with EndoShears. The gallbladder was then dissected off the liver bed using cautery on hook instrument with visualization of good hemostasis as well as no leaking ducts of Luschka. The gallbladder was removed through the 10 mm port site using an EndoCatch bag. The 10 mm port site fascia and peritoneum were then closed under direct visualization using a Fco-Colin device and 0 Vicryl suture. The abdomen was then desufflated and remaining ports removed. All skin incisions were closed using 4-0 Monocryl running subcuticular sutures. Wounds were then cleaned and covered with Dermabond. The patient tolerated the procedure well. We will start IV normal pain medication as well as a clear liquid diet. When she is tolerating clears, has good pain control with oral pain medications, ambulating well, we will discharge her home where she will be instructed to do no heavy lifting or exertion for the next two weeks. Job ID: [id number] DocumentID: [id number] Dictated Date: 03/10/2021 15:13:52 Hand Paint Mixer Date: 03/10/2021 20:12:30 Dictated By: QUAN JOSE MD
== END 2021-03-10 17:25 ==
LOC: SDC 11:48
PROVIDERS: ATTEND Surgery
DX: K81.1 Chronic cholecystitis (principal); K82.8 Other specified diseases of gallbladder; I10 Essential (primary) hypertension; J44.9 Chronic obstructive pulmonary disease, unspecified; G47.33 Obstructive sleep apnea (adult) (pediatric); F32.9 Major depressive disorder, single episode, unspecified; E11.40 Type 2 diabetes mellitus with diabetic neuropathy, unspecified; F43.10 Post-traumatic stress disorder, unspecified; M19.90 Unspecified osteoarthritis, unspecified site; F41.9 Anxiety disorder, unspecified; K21.00 Gastro-esophageal reflux disease with esophagitis, without bleeding; Z79.899 Other long term (current) drug therapy
CPT/HCPCS: 36415; 84703; 85025; 87081

== ENCOUNTER 2021-05-18 17:15 | Emergency (ER) | payer MEDICAID ==
[~2021-05-18] VITALS: Ht 180 cm; Wt 122.0 kg
[~2021-05-18 17:15] MED LIST changes: +TRAM-42 PO
[2021-05-18 19:01] LABS: BASOPHILS # (AUTO) 0.1 10^3/uL (0.0-0.1); BASOPHILS % (AUTO) 1 % (0-10); EOSINOPHILS # (AUTO) 0.2 10^3/uL (0.0-0.3); EOSINOPHILS % (AUTO) 1 % (0-10); HEMATOCRIT 47 % (35-52); HEMOGLOBIN 15.1 g/dL (11.5-16.0); LYMPHOCYTES # (AUTO) 3.8 10^3/uL (1.0-4.0); LYMPHOCYTES % (AUTO) 34 % (12-44); MEAN CORPUSCULAR HEMOGLOBIN 28 pg (25-34); MEAN CORPUSCULAR HGB CONC 32 g/dL (32-36); MEAN CORPUSCULAR VOLUME 87 fL (80-99); MEAN PLATELET VOLUME 8.7 fL (9.0-12.2); MONOCYTES # (AUTO) 0.6 10^3/uL (0.0-1.0); MONOCYTES % (AUTO) 6 % (0-12); NEUTROPHILS # (AUTO) 6.5 10^3/uL (1.8-7.8); NEUTROPHILS % (AUTO) 58 % (42-75); PLATELET COUNT 286 10^3/uL (130-400); WHITE BLOOD COUNT 11.3 10^3/uL (4.3-11.0)
[2021-05-18 19:02] LABS: BILIRUBIN,URINE NEGATIVE (NEGATIVE); CLARITY,URINE CLOUDY; COLOR,URINE YELLOW; GLUCOSE, URINE (UA) NEGATIVE (NEGATIVE); KETONES,URINE TRACE (NEGATIVE); LEUKOCYTE ESTERASE ,URINE 3+ (NEGATIVE); NITRITE,URINE NEGATIVE (NEGATIVE); PROTEIN,URINE 1+ (NEGATIVE)
[2021-05-18 19:10] LABS: POTASSIUM 3.3 MMOL/L (3.6-5.0)
[2021-05-18 19:11] LABS: CALCIUM 9.2 MG/DL (8.5-10.1)
[2021-05-18 19:12] LABS: TOTAL PROTEIN 7.1 GM/DL (6.4-8.2)
[2021-05-18 19:14] LABS: BILIRUBIN,TOTAL 0.5 MG/DL (0.1-1.0)
[2021-05-18 19:14] LABS: BACTERIA,URINE LARGE /HPF; TRICHOMONAS,URINE FEW /HPF; WBC,URINE 50-100 /HPF
[2021-05-18 19:16] LABS: CREATININE SERUM 0.7 MG/DL (0.60-1.30)
--- NOTE | 2021-05-18 19:37 | ED Abdominal Pain ---
General Chief Complaint: Abdominal/GI Problems Stated Complaint: ABDOMINAL PAIN, UTERUS PAIN, CRAMPING, BLEEDING Nursing Triage Note: ABD/VAGINAL CRAMPING SINCE SUNDAY. STATES SHE IS HAVING PRESSURE IN THE PELVIC REGION AND CAN'T PEE. OUT OF COVID QUARENTINE ON 05/16 Source of Information: Patient History of Present Illness Date Seen by Provider: May 18, 2021 Time Seen by Provider: 18:44 Initial Comments PT ARRIVES VIA POV FROM HOME STATES SINCE Sunday05/16/21, SHE HAS HAD SUPRAPUBIC BURNING/PAIN, PRESSURE AND DIFFICULTY URINATING PAIN RADIATES TO HER VAGINAL AREA C/O CRAMPING X 2 DAYS, AND "SHARP PAINS" IN THE AREA NO FEVER NO NAUSEA/VOMITING/DIARRHEA HAS NOT TAKEN ANYTHING FOR SYMPTOMS LMP 05/03/21, IUD IN PLACE STATES SHE WAS DX WITH COVID-19 ON 05/06/21. NO TREATMENT STATES SHE HAS "BEEN OUT OF QUARANTINE SINCE SUNDAY, BUT MY KIDS ARE ALL STILL IN QUARANTINE FOR ANOTHER WEEK" HAD CHOLECYSTECTOMY 02/2021 PCP: LUI[facility] Allergies and Home Medications Allergies Coded Allergies: latex (Verified Allergy, Mild, Rash, 03/10/21) hydrocodone (Verified Allergy, Unknown, vomiting and rash, 03/10/21) oxycodone (Verified Allergy, Unknown, vomiting and rash, 03/10/21) Home Medications Cyclobenzaprine HCl 10 Mg Tablet, 10 MG PO TID, (Reported) Docusate Sodium 100 Mg Tablet, 100 MG PO DAILY, (Reported) Gabapentin 800 Mg Tablet, 800 MG PO QID, (Reported) Hydrochlorothiazide 25 Mg Tablet, 25 MG PO DAILY, (Reported) Hydroxyzine HCl 25 Mg Tablet, 25 MG PO QID PRN for ANXIETY, (Reported) Lamotrigine 200 Mg Tablet, 200 MG PO BID, (Reported) Meloxicam 15 Mg Tablet, 15 MG PO DAILY, (Reported) Methocarbamol 500 Mg Tablet, 1,000 MG PO QID, (Reported) Multivitamin 1 Each Tablet, 1 EACH PO DAILY, (Reported) Nitrofurantoin Monohyd/M-Cryst 100 Mg Capsule, 1 TAB PO BID Prescribed by: DYANA THOMAS on 05/18/211938 Nortriptyline HCl 25 Mg Capsule, 25 MG PO HS, (Reported) [place] 3 Polyunsat Fatty Acids 1,000 Mg Cap, 1,000 MG PO DAILY, (Reported) Phenazopyridine HCl 200 Mg Tablet, 1 TAB PO TID Prescribed by: DYANA THOMAS on 05/18/21 1939 Quetiapine Fumarate 200 Mg Tablet, 200 MG PO HS, (Reported) Sertraline HCl 100 Mg Tablet, 200 MG PO DAILY, (Reported) Tramadol HCl 50 Mg Tablet, 50-100 MG PO TID PRN for PAIN-MILD (1-4), (Reported) Tramadol HCl 50 Mg Tablet, 50-100 MG PO Q6H Prescribed by: QUAN JOSE on 03/10/21 1156 Patient Home Medication List Home Medication List Reviewed: Yes Review of Systems Review of Systems Constitutional: no symptoms reported EENTM: No Symptoms Reported Respiratory: No Symptoms Reported Cardiovascular: No Symptoms Reported Gastrointestinal: See HPI, Abdominal Pain Genitourinary: See HPI Musculoskeletal: no symptoms reported Skin: no symptoms reported Psychiatric/Neurological: No Symptoms Reported Endocrine: No Symptoms Reported Hematologic/Lymphatic: No Symptoms Reported Past Bgnunuv-Jpwlkt-Bhtbuk Hx Patient Social History Tobacco Use?: Yes Tobacco type used: Cigarettes Smoking Status: Current Everyday Smoker Substance use?: Yes Substance type: Marijuana Substance frequency: Once in a while Immunizations Up To Date Tetanus Booster (TDap): Unknown Seasonal Allergies Seasonal Allergies: Yes Past Medical History Surgery/Hospitalization HX: CHOLECYSTECTOMY 02/2021 LEFT HEEL SPUR 01/2021 Surgeries: Yes Section, Gallbladder, Orthopedic, Tonsillectomy, Valve Replacement Respiratory: Yes Sleep Apnea, COPD Currently Using CPAP: No Currently Using BIPAP: No Cardiac: Yes High Cholesterol, Hypertension, Irregular Heartbeat Neurological: Yes Headaches /Migraines, Seizure Disorder Female Reproductive Disorders: Menstrual Problems 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 Sexually Transmitted Disease: No Genitourinary: Yes Kidney Infection, Bladder Infection, UTI (peds) Gastrointestinal: Yes Gastroesophageal Reflux, Chronic Constipation, Chronic Diarrhea, Gall Bladder Disease Musculoskeletal: Yes Degenerate Disk Disease, Fibromyalgia Endocrine: Yes (OBESITY) Diabetes, Non-Insulin dep HEENT: No Cancer: No Psychosocial: Yes Sleep Difficulties, Anxiety, PTSD, Suicide Attempts, Depression Integumentary: Yes Eczema Blood Disorders: No Family Medical History No Pertinent Family Hx PSH: -RIGHT PLATAR FASCITIS -LEFT ANKLE SURGERIES--PIN, FUSION AND REVISION - X 3 -HEMORRHOIDECTOMY -RIGHT HAND TENDON REPAIR -CHOLECYSTECTOMY 02/2021 -LEFT HEEL SPUR 01/2021 Physical Exam Vital Signs Vital Signs - First Documented 05/18/21 17:30 Temp 37.2 Pulse 59 Resp 16 B/P (MAP) 152/82 (105) Pulse Ox 97 O2 Delivery Room Air Capillary Refill : Less Than 3 Seconds Height/Weight/BMI Height: '" Weight: lbs. oz. kg; 37.00 BMI Method: General Appearance: WD/WN, no apparent distress, obese Respiratory: normal breath sounds Cardiovascular: regular rate, rhythm Gastrointestinal: soft; No guarding, No rebound; tenderness (SUPRAPUBIC TENDERNESS) Extremities: normal inspection Back: no CVA tenderness Neurologic/Psychiatric: no motor/sensory deficits, alert, normal mood/affect, oriented x 3 Skin: normal color, warm/dry, tattoos/piercings Progress/Results/Core Measures Results/Orders Lab Results Laboratory Tests Test 05/18/21 18:49 05/18/21 18:53 Range/Units White Blood Count 11.3 H 4.3-11.0 10^3/uL Red Blood Count 5.37 H 3.80-5.11 10^6/uL Hemoglobin 15.1 11.5-16.0 g/dL Hematocrit 47 35-52 % Mean Corpuscular Volume 87 80-99 fL Mean Corpuscular Hemoglobin 28 25-34 pg Mean Corpuscular Hemoglobin Concent 32 32-36 g/dL Red Cell Distribution Width 14.6 H 10.0-14.5 % Platelet Count 286 130-400 10^3/uL Mean Platelet Volume 8.7 L 9.0-12.2 fL Immature Granulocyte % (Auto) 0 % Neutrophils (%) (Auto) 58 42-75 % Lymphocytes (%) (Auto) 34 12-44 % Monocytes (%) (Auto) 6 0-12 % Eosinophils (%) (Auto) 1 0-10 % Basophils (%) (Auto) 1 0-10 % Neutrophils # (Auto) 6.5 1.8-7.8 10^3/uL Lymphocytes # (Auto) 3.8 1.0-4.0 10^3/uL Monocytes # (Auto) 0.6 0.0-1.0 10^3/uL Eosinophils # (Auto) 0.2 0.0-0.3 10^3/uL Basophils # (Auto) 0.1 0.0-0.1 10^3/uL Immature Granulocyte # (Auto) 0.0 0.0-0.1 10^3/uL Sodium Level 140 135-145 MMOL/L Potassium Level 3.3 L 3.6-5.0 MMOL/L Chloride Level 109 H 98-107 MMOL/L Carbon Dioxide Level 22 21-32 MMOL/L Anion Gap 9 5-14 MMOL/L Blood Urea Nitrogen 7 7-18 MG/DL Creatinine 0.70 0.60-1.30 MG/DL Estimat Glomerular Filtration Rate 93 BUN/Creatinine Ratio 10 Glucose Level 135 H 70-105 MG/DL Calcium Level 9.2 8.5-10.1 MG/DL Corrected Calcium 9.2 8.5-10.1 MG/DL Total Bilirubin 0.5 0.1-1.0 MG/DL Aspartate Amino Transf (AST/SGOT) 13 5-34 U/L Alanine Aminotransferase (ALT/SGPT) 23 0-55 U/L Alkaline Phosphatase 78 40-136 U/L Total Protein 7.1 6.4-8.2 GM/DL Albumin 4.0 3.2-4.5 GM/DL Amylase Level 27 25-125 U/L Lipase 15 8-78 U/L Urine Color YELLOW Urine Clarity CLOUDY Urine pH 6.0 5-9 Urine Specific [place] 1.025 H 1.016-1.022 Urine Protein 1+ H NEGATIVE Urine Glucose (UA) NEGATIVE NEGATIVE Urine Ketones TRACE H NEGATIVE Urine Nitrite NEGATIVE NEGATIVE Urine Bilirubin NEGATIVE NEGATIVE Urine Urobilinogen 1.0 < = 1.0 MG/DL Urine Leukocyte Esterase 3+ H NEGATIVE Urine RBC (Auto) 1+ H NEGATIVE Urine RBC NONE /HPF Urine WBC 50-100 H /HPF Urine Squamous Epithelial Cells 10-25 H /HPF Urine Renal Epithelial Cells NONE /HPF Urine Crystals NONE /LPF Urine Bacteria LARGE H /HPF Urine Casts NONE /LPF Urine Mucus LARGE H /LPF Urine Trichomonas FEW H /HPF Urine Culture Indicated YES Micro Results Microbiology 05/18/21 Urine Culture - Preliminary, Resulted Gram Pos Mixed Bacterial Lisa My Orders Orders - DYANA THOMAS DO Ed Iv/Invasive Line Start (05/18/21 18:53) Urine Bedside (05/18/21 18:53) Amylase (05/18/21 18:53) Cbc With Automated Diff (05/18/21 18:53) Comprehensive Metabolic Panel (05/18/21 18:53) Lipase (05/18/21 18:53) Ua Culture If Indicated (05/18/21 18:53) Urine Culture (05/18/21 18:53) Ceftriaxone (Rocephin) (05/18/21 19:45) Ketorolac Injection (Toradol Injection) (05/18/21 19:45) Phenazopyridine Tablet (Pyridium Tablet) (05/18/21 19:45) Vital Signs/I&O 05/18/21 05/18/21 17:30 19:58 Temp 37.2 Pulse 59 91 Resp 16 18 B/P (MAP) 152/82 (105) 149/80 Pulse Ox 97 98 O2 Delivery Room Air Room Air Blood Pressure Mean: 105 Departure Impression Primary Impression: Urinary tract infection Disposition: 01 HOME, SELF-CARE Condition: Stable Departure-Patient Inst. Decision time for Depature: 19:30 Referrals: [facility] (PCP/Family) Primary Care Physician Patient Instructions: Urinary Tract Infection, Adult (DC) Add. Discharge Instructions: HOME, REST LOTS OF CLEAR LIQUIDS TYLENOL 1 GRAM/ MOTRIN 800 MG 4 TIMES A DAY FOR PAIN OR FEVER FOLLOW UP WITH [facility] IN 3-4 DAYS IF NO BETTER All discharge instructions reviewed with patient and/or family. Voiced unders tanding. Scripts Phenazopyridine HCl (Pyridium) 200 Mg Tablet 1 TAB PO TID, #15 TAB Prov: DYANA THOMAS DO 05/18/21 Nitrofurantoin Monohyd/M-Cryst (Macrobid 100 mg Capsule) 100 Mg Capsule 1 TAB PO BID, #20 CAP Prov: DYANA THOMAS DO 05/18/21 DYANA THOMAS DO May 18, 2021 19:37
[2021-05-18] MEDS ORDERED: NITR-65 PO (19:39)
[2021-05-18] MEDS ORDERED: PHEN-640 PO (19:39)
[2021-05-18] MEDS ORDERED: PHENAZOPYRIDINE 100 MG (PYRIDIUM) TABLET PO ONE (19:45)
[2021-05-18] MEDS ORDERED: cefTRIAXone 1,000 MG in WATER (STERILE) FOR INJECTION 10 ML IV ONE (19:45)
[2021-05-18] MEDS ORDERED: KETOROLAC 30 MG/ML VIAL IVP ONE (19:45)
[2021-05-18 19:58] VITALS: BP 149/80
== END 2021-05-18 19:58 | disposition home or self-care (01) ==
LOC: EDUNIT# 17:15 → ER 17:18
DX: N39.0 Urinary tract infection, site not specified (principal); G47.30 Sleep apnea, unspecified; J44.9 Chronic obstructive pulmonary disease, unspecified; I10 Essential (primary) hypertension; F41.9 Anxiety disorder, unspecified; E66.9 Obesity, unspecified; F32.9 Major depressive disorder, single episode, unspecified; G40.909 Epilepsy, unspecified, not intractable, without status epilepticus; F17.210 Nicotine dependence, cigarettes, uncomplicated; Z68.37 Body mass index [BMI] 37.0-37.9, adult; Z79.899 Other long term (current) drug therapy
CPT/HCPCS: 36415; 80053; 81000; 82150; 83690; 85025; 87088

== ENCOUNTER → 2021-09-27 | Outpatient (CLI) | payer MEDICAID ==
[~2021-09-27] MED LIST changes: +CYCL10TA25 PO; -CYCL10TA9 PO; +NITR-65 PO; +PHEN-640 PO
--- NOTE | 2021-09-27 14:42 | Diagnostic Imaging Report ---
EXAM: CT left ankle without contrast. DATE: September 27, 2021. INDICATION: 41-year-old female, left ankle pain. COMPARISON: CT left ankle July 22, 2020. TECHNIQUE: Axial CT images of the left ankle were obtained without contrast. Coronal and sagittal reformats were obtained and provided. All CT scans use one or more of the following dose optimizing techniques: automated exposure control, MA and/or KvP adjustment based on patient size and exam type or iterative reconstruction. FINDINGS: There is an incompletely imaged intramedullary sheyla extending from the level of the distal tibia across the talus and into the calcaneus. There are fixation screws at the level of the calcaneus. The fixation screws appear intact. There is no abnormal lucency surrounding the fixation screws. There is a roughly 1.9 mm lucency surrounding the intramedullary sheyla in the calcaneus. There is no abnormal lucency surrounding the intramedullary sheyla in the tibia. There is a fractured screw in the distal talus with fracture of the screw perhaps best demonstrated on sagittal image 20. There is an additional screw present in the dorsal aspect of the distal talus. There is severe tibiotalar joint space loss. There is an estimated 75% bony bridging across the tibiotalar joint. 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 There is some productive bone formation in the region of the sinus tarsi. The anterior subtalar joint is grossly unremarkable in appearance. There is a remote prior fracture of the anterior process of the calcaneus with well-corticated fracture margins. There is no identified acute fracture. There is no CT evidence of osteomyelitis. IMPRESSION: 1. 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 2. 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 3. 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 4. Redemonstrated fractured screw in the distal talus with an additional screw present in the distal talus. Additional imaged hardware is without clear complication. There is an approximately 1.9 mm lucency surrounding the intramedullary sheyla in the calcaneus. 5. No interval acute bony abnormality. 6. Overall appearance is largely similar to July 22, 2020. Dictated by: Dictated on workstation # [id number]
== END ==
LOC: RAD 13:45
PROVIDERS: ATTEND Obstetrics & Gynecology
DX: M19.072 Primary osteoarthritis, left ankle and foot (principal); M24.672 Ankylosis, left ankle
CPT/HCPCS: 73700

== ENCOUNTER → 2022-05-23 | Outpatient (CLI) | payer MEDICARE, MEDICAID ==
--- NOTE | 2022-05-23 10:49 | Diagnostic Imaging Report ---
PROCEDURE: US left lower extremity venous. TECHNIQUE: Multiple real-time grayscale images were obtained over the left lower extremity in various projections. Additional duplex Doppler and color Doppler images were also obtained. INDICATION: Left calf pain. FINDINGS: There is no evidence of left lower extremity DVT. Left lower extremity deep venous system shows normal compressibility with normal response to augmentation and Valsalva. No fluid collection or mass is detected. IMPRESSION: No evidence of left lower extremity DVT. Dictated by: Dictated on workstation # [id number]
== END ==
LOC: RAD 08:38
PROVIDERS: ATTEND Orthopaedic Surgery Foot and Ankle Surgery
DX: M79.662 Pain in left lower leg (principal)

== ENCOUNTER 2022-10-09 09:52 | Emergency (ER) | payer OTHER, MEDICAID ==
[~2022-10-09] VITALS: Ht 175.6 cm; Wt 122.5 kg
--- NOTE | 2022-10-09 10:12 | ED GU-Female ---
General Stated Complaint: UTI Exam Limitations: no limitations History of Present Illness Date Seen by Provider: Oct 09, 2022 Time Seen by Provider: 09:56 Initial Comments 42-year-old female with past medical history of fibromyalgia, UTIs, chronic pain coming in due to 3 days of dysuria, urinary frequency, and suprapubic discomfort. She had a "boil" she states several weeks ago which she has been taking Keflex already. On Sunday, presented to the walk-in clinic due to the symptoms. They started her on generic Bactrim, fluconazole, and Pyridium. They got a urine sample, and the patient states that all the results are not back yet. Symptoms have persisted, every once while she has some flank discomfort, which is rare. Denies any fever, severe abdominal pain, vomiting, diarrhea, weakness, numbness, vaginal bleeding, or any other concerns. She states she does have a little bit of whitish vaginal discharge with no scent to it. Denies any itchiness. LMP was less than a month ago and she has an IUD in place Allergies and Home Medications Allergies Coded Allergies: latex (Verified Allergy, Mild, Rash, 03/10/21) hydrocodone (Verified Allergy, Unknown, vomiting and rash, 03/10/21) oxycodone (Verified Allergy, Unknown, vomiting and rash, 03/10/21) Patient Home Medication List Home Medication List Reviewed: Yes Cyclobenzaprine HCl (Cyclobenzaprine HCl) 10 Mg Tablet, 10 MG PO TID, (Reported) Entered as Reported by: BELA ONOFRE on 03/07/21 115 Docusate Sodium (Stool Softener) 100 Mg Tablet, 100 MG PO DAILY, (Reported) Entered as Reported by: MARCIAL HUTCHINS on 06/29/20 1551 Gabapentin (Gabapentin) 800 Mg Tablet, 800 MG PO QID, (Reported) Entered as Reported by: BELA ONOFRE on 03/07/21 1152 Hydrochlorothiazide (Hydrochlorothiazide) 25 Mg Tablet, 25 MG PO DAILY, (Report ed) Entered as Reported by: BELA ONOFRE on 03/07/21 1152 Hydroxyzine HCl (Hydroxyzine HCl) 25 Mg Tablet, 25 MG PO QID PRN for ANXIETY, (Reported) Entered as Reported by: BELA ONOFRE on 03/07/21 1152 Lamotrigine (Lamotrigine) 200 Mg Tablet, 200 MG PO BID, (Reported) Entered as Reported by: BELA ONOFRE on 03/07/21 115 Meloxicam (Meloxicam) 15 Mg Tablet, 15 MG PO DAILY, (Reported) Entered as Reported by: MARCIAL HUTCHINS on 06/29/20 155 Methocarbamol (Methocarbamol) 500 Mg Tablet, 1,000 MG PO QID, (Reported) Entered as Reported by: BELA ONOFRE on 03/07/21 115 Multivitamin (Multivitamin) 1 Each Tablet, 1 EACH PO DAILY, (Reported) Entered as Reported by: MARCIAL HUTCHINS on 06/29/20 155 Nitrofurantoin Monohyd/M-Cryst (Macrobid 100 mg Capsule) 100 Mg Capsule, 1 TAB PO BID Prescribed by: DYANA THOMAS on 05/18/211938 Nortriptyline HCl (Nortriptyline HCl) 25 Mg Capsule, 25 MG PO HS, (Reported) Entered as Reported by: BELA ONOFRE on 03/07/21 115 [place] 3 Polyunsat Fatty Acids (Fish Oil 1,000 mg Capsule) 1,000 Mg Cap, 1,000 MG PO DAILY, (Reported) Entered as Reported by: MARCIAL HUTCIHNS on 06/29/201550 Phenazopyridine HCl (Pyridium) 200 Mg Tablet, 1 TAB PO TID Prescribed by: DYANA THOMAS on 05/18/211938 Quetiapine Fumarate (Quetiapine Fumarate) 200 Mg Tablet, 200 MG PO HS, (Reported) Entered as Reported by: BELA ONOFRE on 03/07/21 115 Sertraline HCl (Sertraline HCl) 100 Mg Tablet, 200 MG PO DAILY, (Reported) Entered as Reported by: BELA ONOFRE on 03/07/21 115 Tramadol HCl (Tramadol HCl) 50 Mg Tablet, 50-100 MG PO TID PRN for PAIN-MILD (1- 4), (Reported) Entered as Reported by: MARCIAL HUTCHINS on 06/29/20 155 Tramadol HCl (Ultram) 50 Mg Tablet, 50-100 MG PO Q6H Prescribed by: QUAN JOSE on 03/10/21 1156 Review of Systems Review of Systems Constitutional: No fever EENTM: no symptoms reported Respiratory: no symptoms reported Cardiovascular: no symptoms reported Gastrointestinal: no symptoms reported Genitourinary: see HPI Musculoskeletal: no symptoms reported Skin: no symptoms reported Psychiatric/Neurological: No Symptoms Reported Endocrine: No Symptoms Reported Past Jzqiztt-Okxrob-Rxppat Hx Patient Social History Tobacco Use?: Yes Tobacco type used: Cigarettes Substance use?: Yes Substance type: Marijuana Alcohol Use?: No Immunizations Up To Date Tetanus Booster (TDap): Unknown Seasonal Allergies Seasonal Allergies: Yes Past Medical History Surgery/Hospitalization HX: CHOLECYSTECTOMY 02/2021 LEFT HEEL SPUR 01/2021 Surgeries: Yes Section, Gallbladder, Orthopedic, Tonsillectomy, Valve Replacement Respiratory: Yes Sleep Apnea, COPD Currently Using CPAP: No Currently Using BIPAP: No Cardiac: Yes High Cholesterol, Hypertension, Irregular Heartbeat Neurological: Yes Headaches /Migraines, Seizure Disorder Female Reproductive Disorders: Menstrual Problems 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 Sexually Transmitted Disease: No Genitourinary: Yes Kidney Infection, Bladder Infection, UTI (peds) Gastrointestinal: Yes Gastroesophageal Reflux, Chronic Constipation, Chronic Diarrhea, Gall Bladder Disease Musculoskeletal: Yes Degenerate Disk Disease, Fibromyalgia Endocrine: Yes (OBESITY) Diabetes, Non-Insulin dep HEENT: No Cancer: No Psychosocial: Yes Sleep Difficulties, Anxiety, PTSD, Suicide Attempts, Depression Integumentary: Yes Eczema Blood Disorders: No Family Medical History No Pertinent Family Hx PSH: -RIGHT PLATAR FASCITIS -LEFT ANKLE SURGERIES--PIN, FUSION AND REVISION - X 3 -HEMORRHOIDECTOMY -RIGHT HAND TENDON REPAIR -CHOLECYSTECTOMY 02/2021 -LEFT HEEL SPUR 01/2021 Physical Exam Vital Signs Vital Signs - First Documented 10/09/22 09:57 Temp 36.2 Pulse 91 Resp 17 B/P (MAP) 137/110 (119) O2 Delivery Room Air Capillary Refill : Height, Weight, BMI Height: '" Weight: lbs. oz. kg; 37.00 BMI Method: General Appearance: WD/WN, no apparent distress HEENT: PERRL/EOMI, normal ENT inspection, pharynx normal Neck: non-tender, full range of motion, supple, normal inspection Cardiovascular: regular rate, rhythm, no edema, no murmur Respiratory: chest non-tender, lungs clear, normal breath sounds, no respiratory distress, no accessory muscle use Gastrointestinal: normal bowel sounds, non tender, soft; No distended, No guarding, No rebound Back: normal inspection, no CVA tenderness, no vertebral tenderness Extremities: normal range of motion, non-tender, normal inspection, no pedal edema, no calf tenderness, normal capillary refill Neurologic/Psychiatric: no motor/sensory deficits, alert, normal mood/affect Skin: normal color, warm/dry Lymphatic: no adenopathy Progress/Results/Core Measures Suspected Sepsis SIRS Temperature: Pulse: Respiratory Rate: Blood Pressure / Mean: Results/Orders Lab Results Laboratory Tests Test 10/09/22 09:58 Range/Units Urine Color YELLOW Urine Clarity CLEAR Urine pH 6.0 5-9 Urine Specific [place] 1.025 H 1.016-1.022 Urine Protein TRACE H NEGATIVE Urine Glucose (UA) TRACE H NEGATIVE Urine Ketones NEGATIVE NEGATIVE Urine Nitrite POSITIVE H NEGATIVE Urine Bilirubin NEGATIVE NEGATIVE Urine Urobilinogen 1.0 < = 1.0 MG/DL Urine Leukocyte Esterase 3+ H NEGATIVE Urine RBC (Auto) 1+ H NEGATIVE Urine RBC 5-10 H /HPF Urine WBC 25-50 H /HPF Urine Squamous Epithelial Cells 5-10 /HPF Urine Crystals PRESENT H /LPF Urine Amorphous Sediment FEW ANAMARIA URATES H /LPF Urine Bacteria MODERATE H /HPF Urine Casts NONE /LPF Urine Mucus NEGATIVE /LPF Urine Trichomonas FEW H /HPF Urine Culture Indicated YES My Orders Orders - DOM TELLEZ MD Urine Bedside (10/09/22 09:58) Ua Culture If Indicated (10/09/22 09:58) Urine Culture (10/09/22 09:58) Neis Ion Dna Urine Test (10/09/22 10:37) Chlamydia Trachomatis Urine (10/09/22 10:37) Vital Signs/I&O 10/09/22 09:57 Temp 36.2 Pulse 91 Resp 17 B/P (MAP) 137/110 (119) O2 Delivery Room Air Capillary Refill : Progress Note : Progress Note 42-year-old female with above history coming in due to burning with urination and suprapubic discomfort. ABCs were intact and vitals were stable on presentation. Physical exam reassuring including no CVA tenderness, and a stacey ssuring abdominal exam. Differential includes cystitis versus less likely pyelonephritis given the lack of systemic symptoms versus sexually-transmitted infection versus some other etiology. Favor infection given the dysuria. Urinalysis concerning for infection, also does show trichomonas in her urine. We will treat her with IM ceftriaxone for likely cystitis, as well as Flagyl p.o. for the trichomonas. Prescription sent for Flagyl. We will send testing for gonorrhea and chlamydia as well which will be pending at this time. I believe the patient is otherwise stable for discharge with outpatient follow-up. She was sent home with strict return precautions Departure Impression Primary Impression: Cystitis Additional Impression: Trichomonal vaginitis Disposition: HOME, SELF-CARE Condition: Stable Departure-Patient Inst. Decision time for Depature: 10:41 Referrals: [facility] (PCP/Family) Primary Care Physician Patient Instructions: Trichomoniasis (DC) Add. Discharge Instructions: Does appear like your urine is infected. We will start you on metronidazole which we will treat trichomonas. Continue to take everything you have been pres cribed otherwise including the Bactrim. Do not drink alcohol with the metronidazole. Scripts Metronidazole (Metronidazole) 500 Mg Tablet 500 MG PO BID for 7 Days, #14 TAB 0 Refills Prov: DOM TELLEZ MD 10/09/22 Work/School Note: Work Release Form Date Seen in the Emergency Department: Oct 09, 2022 Return to Work: Oct 10, 2022 Restrictions: No Restrictions DOM TELLEZ MD Oct 09, 2022 10:12
[2022-10-09 10:19] LABS: CLARITY,URINE CLEAR; COLOR,URINE YELLOW; GLUCOSE, URINE (UA) TRACE (NEGATIVE); KETONES,URINE NEGATIVE (NEGATIVE); LEUKOCYTE ESTERASE ,URINE 3+ (NEGATIVE); NITRITE,URINE POSITIVE (NEGATIVE); PROTEIN,URINE TRACE (NEGATIVE)
[2022-10-09 10:33] LABS: AMORPHOUS SEDIMENT,UR FEW AMOR URATES /LPF; BACTERIA,URINE MODERATE /HPF; BILIRUBIN,URINE NEGATIVE (NEGATIVE); TRICHOMONAS,URINE FEW /HPF; WBC,URINE 25-50 /HPF
[2022-10-09] MEDS ORDERED: METR-145 PO (10:42)
[2022-10-09] MEDS ORDERED: metroNIDAZOLE 500 MG (FLAGYL) TAB PO ONE (10:45)
[2022-10-09] MEDS ORDERED: cefTRIAXone 1,000 MG VIAL IM ONE (10:45)
[2022-10-09] MEDS ORDERED: LIDOCAINE 1% INJ 20 ML VIAL INJ ONE (10:45)
[2022-10-09 10:50] VITALS: BP 134/84
== END 2022-10-09 10:50 | disposition home or self-care (01) ==
LOC: EDUNIT# 09:52 → ER 09:54
DX: N30.90 Cystitis, unspecified without hematuria (principal); A59.01 Trichomonal vulvovaginitis; E66.9 Obesity, unspecified; F17.210 Nicotine dependence, cigarettes, uncomplicated; Z68.37 Body mass index [BMI] 37.0-37.9, adult; Z32.02 Encounter for pregnancy test, result negative; Z28.310 Unvaccinated for COVID-19
CPT/HCPCS: 36415; 81000; 84703; 87088; 87491; 87591; 99284

== ENCOUNTER → 2022-10-25 | Outpatient (CLI) | payer OTHER, MEDICAID ==
[~2022-10-25] MED LIST changes: +METR-145 PO
== END ==
LOC: RAD 15:00
PROVIDERS: ATTEND Obstetrics & Gynecology
DX: Z12.31 Encounter for screening mammogram for malignant neoplasm of breast (principal)
CPT/HCPCS: 77063; 77067

== ENCOUNTER 2022-10-27 19:46 | Outpatient (CLI) | payer OTHER, MEDICAID | END 2022-10-28 05:58 | disposition home or self-care (01) | LOC: SLEEP 19:46 | PROVIDERS: ATTEND Pediatrics | DX: G47.33 Obstructive sleep apnea (adult) (pediatric) (principal); G47.9 Sleep disorder, unspecified; I10 Essential (primary) hypertension | CPT/HCPCS: 95810 ==

== ENCOUNTER → 2023-04-23 | Outpatient (CLI) | payer OTHER, MEDICAID ==
--- NOTE | 2023-04-23 17:53 | Diagnostic Imaging Report ---
PROCEDURE: Pelvic comp/transvaginal sonogram. TECHNIQUE: Complete transabdominal and transvaginal pelvic ultrasound was performed. In addition, limited pelvic Doppler was performed. INDICATION: Abnormal uterine bleeding. Uterus is retroverted measuring 8.3 x 4.9 x 5.4 cm. Endometrium is 11 mm in thickness. No myometrial mass is identified. Right ovary measures 2.7 x 1.6 x 1.5 cm and left ovary measures 2.6 x 1.3 x 1.3 cm. There is blood flow to both ovaries. No adnexal mass or free pelvic fluid is detected. IMPRESSION: Unremarkable transabdominal and transvaginal pelvic ultrasound with limited pelvic Doppler. Dictated by: Dictated on workstation # [id number]
== END ==
LOC: RAD 14:33
PROVIDERS: ATTEND Obstetrics & Gynecology
DX: N93.9 Abnormal uterine and vaginal bleeding, unspecified (principal)
CPT/HCPCS: 76830; 76856

== ENCOUNTER 2023-05-08 05:36 | Outpatient (CLI) | payer MEDICARE, MEDICAID ==
[~2023-05-08] VITALS: Ht 180.3 cm; Wt 125.0 kg
== END 2023-05-09 18:34 | disposition home or self-care (01) ==
LOC: PREOP 05:36
PROVIDERS: ATTEND Obstetrics & Gynecology
DX: Z01.818 Encounter for other preprocedural examination (principal)

== ENCOUNTER 2023-05-15 09:08 | Day surgery (SDC) | payer MEDICARE, MEDICAID ==
[2023-05-15] VITALS (9 sets, daily range): BP systolic 112–171; BP diastolic 65–105
[~2023-05-15] VITALS: Ht 180.3 cm; Wt 125.0 kg
[2023-05-15] MEDS ORDERED: metroNIDAZOLE 500MG/100ML IVPB 100 ML IV ONE (09:30)
[2023-05-15] MEDS ORDERED: ceFAZolin INJECTION 2,000 MG in NS (IVPB) 50 ML 50 ML IV ONE (09:30)
[2023-05-15] MEDS: LACTATED RINGERS 1,000 ML 1,000 ML IV PRN ×2 (09:50→13:15)
[2023-05-15 09:53] LABS: BASOPHILS # (AUTO) 0.1 10^3/uL (0.0-0.1); BASOPHILS % (AUTO) 1 % (0-10); EOSINOPHILS # (AUTO) 0.1 10^3/uL (0.0-0.3); EOSINOPHILS % (AUTO) 1 % (0-10); HEMATOCRIT 43 % (35-52); HEMOGLOBIN 13.8 g/dL (11.5-16.0); LYMPHOCYTES # (AUTO) 2.9 10^3/uL (1.0-4.0); LYMPHOCYTES % (AUTO) 28 % (12-44); MEAN CORPUSCULAR HEMOGLOBIN 30 pg (25-34); MEAN CORPUSCULAR HGB CONC 32 g/dL (32-36); MEAN CORPUSCULAR VOLUME 92 fL (80-99); MEAN PLATELET VOLUME 8.8 fL (9.0-12.2); MONOCYTES # (AUTO) 0.7 10^3/uL (0.0-1.0); MONOCYTES % (AUTO) 7 % (0-12); NEUTROPHILS # (AUTO) 6.3 10^3/uL (1.8-7.8); NEUTROPHILS % (AUTO) 62 % (42-75); PLATELET COUNT 218 10^3/uL (130-400); WHITE BLOOD COUNT 10.2 10^3/uL (4.3-11.0)
[2023-05-15] MEDS ORDERED: LIDOCAINE 1% INJ 20 ML VIAL ONE (10:12)
--- NOTE | 2023-05-15 10:23 | Progress Note-Pre Operative ---
Pre-Operative Progress Note Date of Available H&P: May 15, 2023 Date H&P Reviewed: May 15, 2023 Time H&P Reviewed: 10:25 History & Physical: H&P Reviewed, Patient Examed, No changes noted Pre-Operative Diagnosis: AUB, Menorrhagia, Dysmenorrhea APARNA BAEZ DO May 15, 2023 10:23
[2023-05-15] MEDS ORDERED: ONDANSETRON INJECTION 4 MG/2 ML (SDV) IV PRN (10:30)
[2023-05-15] MEDS ORDERED: ANTACID SUSPENSION 30 ML UDC PO PRN (10:30)
[2023-05-15] MEDS ORDERED: IBUPROFEN 600 MG TABLET PO PRN (10:30)
[2023-05-15] MEDS ORDERED: LACTATED RINGERS 1,000 ML 1,000 ML IV SCH (10:30)
[2023-05-15] MEDS ORDERED: SCOPOLAMINE 1.5 MG PATCH TOP ONE (10:30)
[2023-05-15] MEDS ORDERED: DOCUSATE SODIUM 100 MG CAPSULE PO PRN (10:30)
[2023-05-15] MEDS ORDERED: FAMOTIDINE INJ 20MG/2ML VIAL IV ONE (10:30)
[2023-05-15] MEDS ORDERED: SIMETHICONE 80 MG CHEWABLE TABLET PO PRN (10:30)
[2023-05-15] MEDS ORDERED: KETOROLAC INJ 30 MG/ML VIAL IVP PRN (10:30)
[2023-05-15] MEDS ORDERED: HYDROmorphone 2 MG TABLET PO PRN (10:30)
[2023-05-15] MEDS ORDERED: ONDANSETRON INJECTION 4 MG/2 ML (SDV) IV ONE (10:30)
[2023-05-15] MEDS ORDERED: ZOLPIDEM 5 MG (AMBIEN) TAB PO PRN (10:30)
[2023-05-15] MEDS ORDERED: BENZOCAINE LOZENGES 1 EACH MM PRN (10:30)
--- NOTE | 2023-05-15 10:30 | Discharge Inst-Women's Service ---
Discharge Inst-Women's Serv Depart Medication/Instructions New, Converted or Re-Newed RX: Transmitted to Pharmacy Problems Reviewed?: Yes Consults/Follow Up Additional Follow Up: Yes Orders/Referrals Dr. Noyola in 7-10 days and in 8 weeks Activity Activity: Activity as Tolerated Driving Instructions: No Driving for 1 Week NO SMOKING: NO SMOKING Nothing Inside Vagina: No Douching, No [place], No Tampons Diet Discharge Diet: No Restrictions Symptoms to Report to : Bleeding Excessive, Pain Increased, Fever Over 101 Degrees F, Vaginal Bleeding Increase, Questions/Concerns For Any Problems or Questions: Contact Your Physician Skin/Wound Care Infection Signs and Symptoms: Increased Redness, Foul Odor of Wound, Increased Drainage, Skin Itchy or Has a Rash, Increased Swelling, Temperature Above 101 F Operative Area Clean and Dry: Keep Incision Clean/Dry Stitches/Lanie/Dermabond: Dermabond, Care of Stitches Bathing Instructions: APARNA Vaca DO May 15, 2023 10:29
[2023-05-15] MEDS ORDERED: DOCU100C37 PO (10:32)
[2023-05-15] MEDS ORDERED: SIME80TA16 PO (10:32)
[2023-05-15] MEDS ORDERED: IBUP-844 PO (10:32)
[2023-05-15] MEDS ORDERED: HYDR2TAB6 PO (10:32)
[2023-05-15] MEDS ORDERED: BUPIVACAINE 0.25% 30 ML VIAL ONE (10:39)
[2023-05-15] MEDS ORDERED: proPOfol INJECTION 200 MG/20 ML VIAL IV ONE (10:43)
[2023-05-15] MEDS ORDERED: dexAMETHasone INJ 10 MG/ML 1 ML VIAL ONE (10:43)
[2023-05-15] MEDS ORDERED: GLYCOPYRROLATE INJ 0.2 MG/ML 2 ML VIAL ONE (10:43)
[2023-05-15] MEDS ORDERED: ONDANSETRON INJECTION 4 MG/2 ML (SDV) ONE (10:43)
[2023-05-15] MEDS ORDERED: LIDOCAINE PF 2% 5 ML VIAL ONE (10:43)
[2023-05-15] MEDS ORDERED: fentaNYL INJECTION 100 MCG/2 ML VIAL ONE (10:44)
[2023-05-15] MEDS ORDERED: ROCURONIUM 50 MG/5 ML VIAL IV ONE (10:44)
[2023-05-15] MEDS ORDERED: NEOSTIGMINE 1 MG/1ML 10 ML VIAL ONE (10:44)
[2023-05-15] MEDS ORDERED: MIDAZOLAM INJ 2 MG/2 ML VIAL ONE (10:44)
[2023-05-15] MEDS ORDERED: HYDROmorphone INJECTION 2 MG/ML VIAL ONE (12:09)
[2023-05-15] MEDS ORDERED: BUPIVACAINE 0.25% 30 ML VIAL INJ ONE (12:11)
[2023-05-15] MEDS ORDERED: SEVOFLURANE (ULTANE) 15 ML INHAL SOLN ONE ×2 (12:36→12:53)
--- NOTE | 2023-05-15 13:23 | Anesthesia-General Post-Op ---
General Patient Condition Mental Status/LOC: Same as Preop Cardiovascular: Satisfactory Nausea/Vomiting: Absent Respiratory: Satisfactory Pain: Controlled Complications: Absent Post Op Complications Complications None Follow Up Care/Instructions Patient Instructions None needed. Anesthesia/Patient Condition Patient Condition Patient is resting comfortably in PACU and doing well, no complaints, stable vital signs, no apparent adverse anesthesia problems. No complications reported per nursing. BARBARA CORADO DO May 15, 2023 13:23
[2023-05-15] MEDS ORDERED: HYDROmorphone INJECTION 2 MG/ML VIAL IV ONE (13:30)
[2023-05-15] MEDS ORDERED: ONDANSETRON INJECTION 4 MG/2 ML (SDV) IVP PRN (13:30)
[2023-05-15] MEDS ORDERED: morphine INJ 10 MG/ML 1ML (SYR OR VIAL) IVP ONE (13:30)
[2023-05-15] MEDS ORDERED: KETOROLAC INJ 30 MG/ML VIAL ONE (13:36)
[2023-05-15] MEDS ORDERED: morphine INJ 10 MG/ML 1ML (SYR OR VIAL) ONE (13:42)
[2023-05-15] MEDS ORDERED: HYDROmorphone INJECTION 2 MG/ML VIAL IVP PRN (14:45)
[2023-05-15] MEDS ORDERED: diphenhydrAMINE INJ 50 MG/ML VIAL IVP ONE (14:45)
[2023-05-15] MEDS ORDERED: diphenhydrAMINE INJ 50 MG/ML VIAL ONE (14:56)
--- NOTE | 2023-05-15 16:43 | OPERATIVE REPORT ---
PREOPERATIVE DIAGNOSES: 1. A 43-year-old female with abnormal uterine bleeding. 2. Menorrhagia. 3. Dysmenorrhea. POSTOPERATIVE DIAGNOSES: 1. A 43-year-old female with abnormal uterine bleeding. 2. Menorrhagia. 3. Dysmenorrhea. PROCEDURE: Robotic-assisted total laparoscopic hysterectomy with bilateral salpingectomy. SURGEON: Sameer Baez DO SENIOR COMPLIANCE OFFICER: Sheree Beverly DNP was necessary for manipulation and retraction throughout the procedure. ANESTHESIA: General endotracheal. ESTIMATED BLOOD LOSS: Minimal. URINE OUTPUT: 100 mL clear at the end of the procedure. FLUIDS: 1600 mL lactated Ringer's solution. FINDINGS: A bulky hyperemic-appearing uterus. Grossly normal-appearing bilateral fallopian tubes and ovaries. SPECIMEN SENT: Uterus, bilateral fallopian tubes. INDICATIONS FOR PROCEDURE: This 43-year-old female was a patient who had sought care in my office well over my ear ago for heavy episodes of abnormal uterine bleeding that was irregular and heavy causing her to affect her life socially. We tried more conservative measures. Nearly a year ago, we attempted a D and C with no improvement in her bleeding. She has also tried more conservative measures throughout her life without any improvement in her status. She had become very frustrated and wants to proceed with more aggressive measure. Alternatives were reviewed with the patient; however, due to some contraindications that she has those alternatives were not the best option. We both decided that a hysterectomy would likely be the best option for her. Risks of the procedure were discussed with the patient in detail including risk of bleeding, infection, damage to surrounding structures including structures including but not limited to bowel, bladder, ureter, kidneys, possible need for reoperation, postoperative complications that may occur, recovery timeframe, risk from anesthesia and even . After everything was discussed with the patient in detail, she was agreeable to proceed. Consent was obtained. The patient was taken to the operating room. OPERATIVE DESCRIPTION IN DETAIL: Once in the operating room, anesthesia was found to be adequate, was placed in dorsal lithotomy position, prepped and draped in normal sterile fashion. A timeout was performed. Anesthesia was tested. I then placed a Kirby catheter using sterile technique. Weighted speculum was inserted into the patient's vagina. Right angle retractor was used to visualize the cervix, which was grasped using 0 Vicryl suture to the anterior lip of the cervix. The suture was then used as my retraction. I found the uterine cavity depth was found to be 8 cm. I selected an 8 cm MILA uterine manipulator tip and a 3.5 cm colpotomy ring. The manipulator tip was advanced into the uterus with the balloons deployed. The colpotomy ring is advanced around the vaginal fornix where the MILA was then secured to the uterus. I then removed all the other instruments from the patient's vagina, performed change of gloves, turned my attention to the abdomen where subcostally at the midclavicular line, I introduced a Veress needle. Through the skin, a tension-free placement confirmed using saline drop test. An opening pressure of 5 mmHg was noted. I proceeded with CO2 insufflation to max pressure of 15 mmHg, at which point I make an 8 mm supraumbilical incision with a knife and directed blunt laparoscopic da Gardenia camera trocar through the incision to ensure placement was confirmed using the da Gardenia laparoscope. There was no evidence of damage from entry site. A brief scan of the upper abdominal anatomy appears to be grossly normal. I then placed in steep Trendelenburg allowing me to visualize all my pelvic anatomy as defined in my findings above. I placed 2 lateral trocars, these are both 8 mm trocars, approximately 10 cm lateral to my supraumbilical trocar. Once both of these trocars were in place, I bring in the da Gardenia robot and docked in appropriate fashion, starting with the SynchroSeal device in left hand and monopolar mannie in the right hand, I performed the following dissection bilaterally at da Gardenia operative console. I started the uteroovarian ligament. I sealed and transected using the SynchroSeal device. I then created a window in the mesosalpinx and this laterally down the mesosalpinx. Using a SynchroSeal device, amputating the fallopian tube from its surrounding blood supply. I then grasped the round ligament, which I sealed and transected using the SynchroSeal device. This allowed me to grasp the entire broad ligament, which I sealed and transect using the SynchroSeal device down to the level of the lower uterine segment, at which point I the anterior and posterior leaves of the broad ligament. Anterior leaflet was taken down to the anterior vaginal fornix. The posterior leaf was taken around the posterior vaginal fornix. This allows me to skeletonize the uterine vessels laterally, which I sealed and transected using SynchroSeal device. I then created a colpotomy at 12 o'clock position using monopolar mannie and took this circumferentially around the vaginal fornix amputating the cervix away from the vagina. I then closed the vaginal cuff after I removed the cervix, uterus and fallopian tubes through the vagina. The vaginal cuff was closed using 2-0 V-Loc in a running fashion, after which there was not bleeding noted from any of my dissection planes. I then undocked da Gardenia robot and proceeded with remainder of the case laparoscopically. I copiously irrigated the wound with normal saline. Once again, there was active bleeding noted from any of my dissection planes. I placed a Surgicel hemostatic agent over all my planes of dissection to ensure excellent postoperative hemostasis and then have the patient was taken out of steep Trendelenburg while I removed the lateral trocars under direct visualization, laparoscope. The infraumbilical trocars left in place to release the remainder of insufflation and to introduce 10 mL of 0.25% Marcaine in peritoneal cavity for postoperative pain management. I then removed this trocar as well. Skin was reapproximated using 4-0 Monocryl interrupted subcuticular stitches. Dermabond was applied. Incision bandage was placed over the incisions as well. Kirby catheter was left in place. The patient tolerated the procedure well and sent to recovery room in stable condition. Lap and sponge counts were correct at the end of the procedure. Instrument counts correct as well. Two grams of Ancef and 500 mg of Flagyl were given preoperatively for infection prophylaxis. Job ID: [id number] DocumentID: [id number] Dictated Date: 05/15/2023 12:56:04 Operations Controller Date: 05/15/2023 16:41:00 Dictated By: SAMEER BAEZ DO
== END 2023-05-15 18:48 | disposition home or self-care (01) ==
LOC: SDC 09:08 → WS 13:44 → SDC 18:48
PROVIDERS: ATTEND Obstetrics & Gynecology
DX: N93.9 Abnormal uterine and vaginal bleeding, unspecified (principal); N92.0 Excessive and frequent menstruation with regular cycle; N94.6 Dysmenorrhea, unspecified; N88.8 Other specified noninflammatory disorders of cervix uteri; N83.8 Other noninflammatory disorders of ovary, fallopian tube and broad ligament; E66.9 Obesity, unspecified; F17.210 Nicotine dependence, cigarettes, uncomplicated; Z68.37 Body mass index [BMI] 37.0-37.9, adult
CPT/HCPCS: 36415; 82947; 84703; 85025; 86850; 86900; 86901; 87081; 88307